=== PATIENT | female | born 1940 | race Caucasian/White ===

== ENCOUNTER 2020-09-02 22:18 | Emergency (ER) | payer MEDICARE, SELFPAY ==
[2020-09-02 22:34] VITALS: BP 145/67; PULSE 75; RESP 20; TEMP 36.6; O2SAT 100; BMI 16.3
--- NOTE | 2020-09-02 22:54 | ED_ITS ---
HPI - General Adult General Chief complaint: Nausea/Vomiting/Diarrhea Stated complaint: anxietty Time Seen by Provider: 09/02/20 22:50 History of Present Illness HPI narrative: This is a 80-year-old female who is well known to the emergency department and presents via EMS for complaints of a hiccuping like phenomenon that she states awoke her from sleep and is not associated with fever, chills, nausea, vomiting, diarrhea, urinary pain / burning / frequency. Patient states that she was able to tolerate her dinner and that her symptom onset was shortly after her [employer] left for the evening. Related Data Previous Rx's Medication Instructions Recorded alum-mag hydroxide-simeth [Mylanta 10 ml PO TID PRN #1 ea 09/03/20 Maximum Strength] alum-mag hydroxide-simeth [Mylanta 10 ml PO TID PRN #1 ea 09/03/20 Maximum Strength] Allergies Allergy/AdvReac Type Severity Reaction Status Date / Time azithromycin [From ZITHROMAX] Allergy Severe GENERIC Unverified 08/18/20 15:39 ONLY-SEVERE ABD PAIN, abdominal pain codeine [CODEINE] Allergy Intermediate NAUSEA & Unverified 08/18/20 15:39 VOMITING,FAINTED, nausea, vomiting, syncope erythromycin base Allergy Intermediate HIVES, ABD Unverified 08/18/20 15:39 [ERYTHROMYCIN BASE] PAIN promethazine [From PHENERGAN] Allergy Intermediate DIZZY / Unverified 08/18/20 15:39 NAUSEATED amoxicillin [Prevpac] Allergy Unknown Verified 06/21/20 00:00 clarithromycin [Prevpac] Allergy Unknown Verified 06/21/20 00:00 lansoprazole [Prevpac] Allergy Unknown Verified 06/21/20 00:00 Erythromycin Allergy Unknown hives, Uncoded 06/21/20 00:00 abdominal pain Review of Systems Review of Systems: Pertinent positives and negatives as stated in HPI and 10 point review of systems is otherwise negative. [facility] Past Medical History Medical History Anxiety GERD (gastroesophageal reflux disease) Social History Social History Advance Directives: No Advance Directives Information Provided: No Physical Exam Vital Signs and I&O and Narrative: Vital Signs and I&O: Vital Signs Temp 97.9 F 09/02/20 22:34 Pulse 75 09/02/20 22:34 Resp 20 09/02/20 22:34 BP 145/67 H 09/02/20 22:34 Pulse Ox 100 09/02/20 22:34 Intake & Output 09/02/20 09/02/20 09/03/20 06:59 18:59 06:59 Weight 43.2 kg Body Mass Index 16.3 VITAL SIGNS: Reviewed. GENERAL: Well developed, well nourished, in no acute distress, but appears to be having an affected hiccuping like motion. HEAD: Normocephalic/atraumatic, EYES: PERRLA, EOMI intact without pain, no nystagmus/pallor/icterus noted EARS: Ext canals without abnormality, TMs non-bulging and non-erythematous NOSE: Nares patent bilateral OROPHARYNX: no oral lesions noted, posterior pharynx clear and non-erythematous without noted tonsillar enlargement/erythema/exudates NECK: Supple, no adenopathy LUNGS: Normal breath sounds. No adventitious sounds or accessory muscle use. SpO2<> CARDIOVASCULAR: Regular rate and rhythm without noted murmurs, no JVD or lower extremity edema. ABDOMEN: Soft, non-tender, non-distended with bowel sounds. No rigidity. No guarding. No palpable masses or hernias noted MUSCULOSKELETAL: No tenderness, deformities, or effusions noted on gross inspection. EXTREMITIES: No cyanosis, clubbing or edema. SKIN: Inspection of the skin reveals no rashes, ulcerations, jaundice, pallor, or petechiae. NEUROLOGIC: Alert and oriented x 4. Strength and sensation to light touch were grossly intact Course Reevaluation(s) Reevaluation #1: On re-evaluation the patient has had resolution of her symptoms and she will be discharged to home with instructions to continue with Mylanta and follow up with her primary care provider for further evaluation. Medical Decision Making MDM Narrative Medical decision making narrative: This is a 80-year-old female with history and clinical presentation consistent with likely dyspepsia and will provide a trial of Mylanta and re-evaluate. There is no evidence for infectious etiologies. Discharge Plan Discharge Clinical Impression: Dyspepsia Patient Disposition: Home, Self-Care Instructions: Indigestion (ED) Additional Instructions: Resume all home medications. Prescriptions: New alum-mag hydroxide-simeth [Mylanta Maximum Strength] 400-400-40 mg/5 mL suspension 10 ml PO TID PRN (Reason: indigestion) Qty: 1 RF: 0 alum-mag hydroxide-simeth [Mylanta Maximum Strength] 400-400-40 mg/5 mL suspension 10 ml PO TID PRN (Reason: indigestion) Qty: 1 RF: 0 Referrals: Physician,None [Primary Care Provider] - 2 days (Follow up on dyspepsia) Interventions: ED Discharge Assessment Last Done: 09/03/20 00:33 Discharge Date/Time: 09/03/20 00:34 Print Language: Nicaraguan
[2020-09-02] MEDS: Magnesium Hydrox/Alum Hydrox 30 ML ORAL.SUSP PO (23:20)
== END 2020-09-03 00:34 | disposition home or self-care (01) ==
PROVIDERS: Emergency Provider Student in an Organized Health Care Education/Training Program
DX: R10.13 Epigastric pain (principal); K21.9 Gastro-esophageal reflux disease without esophagitis
CPT/HCPCS: 99283

== ENCOUNTER 2020-09-27 06:10 | Emergency (ER) | payer MEDICARE, SELFPAY ==
[2020-09-27 06:16] VITALS: PULSE 72; RESP 16; TEMP 36.9; O2SAT 97; BMI 25.8
--- NOTE | 2020-09-27 06:22 | PC.NURSE ---
PT TO ROOM VIA AMBULANCE AFTER WAKING UP WITH A HEADACHE THIS AM. PT DENIES ANY OTHER COMPLAINTS AT THIS TIME. PT DENIES ANY INJURY TO HEAD. EMS STATED PT AMBULATED DOWN 3 FLIGHTS OF STAIRS AND WAS WAITING AT DOOR FOR EMS. PT ARRIVES ALERT, RESPIRATIONS EASY, N/L. PT DENIES N/V. VS OBTAINED. CALL JUÁREZ W/I REACH, BED IN LOW LOCKED POSITION. PT AWAITING MD'S EVAL.
[2020-09-27 06:25] VITALS: BP 131/88; PULSE 79; RESP 16; O2SAT 99
--- NOTE | 2020-09-27 06:56 | ED.HA ---
HPI - Headache General Chief Complaint: Headache Stated Complaint: headache Time Seen by Provider: 09/27/20 06:17 Source: patient Mode of arrival: ambulatory Limitations: no limitations History of Present Illness HPI Narrative: patient comes to emergency room complaining of headache that started earlier this morning. Patient states she went to her medication container and notice she did not have any Tylenol therefore came to the hospital. Patient denies any visual changes, no fever no chills, no neck pain. MD elicited complaint: headache Related Data Previous Rx's Medication Instructions Recorded alum-mag hydroxide-simeth [Mylanta 10 ml PO TID PRN #1 ea 09/03/20 Maximum Strength] alum-mag hydroxide-simeth [Mylanta 10 ml PO TID PRN #1 ea 09/03/20 Maximum Strength] acetaminophen [Athenol] 650 mg PO Q6H PRN #30 tab 09/27/20 Allergies Allergy/AdvReac Type Severity Reaction Status Date / Time azithromycin [From ZITHROMAX] Allergy Severe GENERIC Unverified 08/18/20 15:39 ONLY-SEVERE ABD PAIN, abdominal pain codeine [CODEINE] Allergy Intermediate NAUSEA & Unverified 08/18/20 15:39 VOMITING,FAINTED, nausea, vomiting, syncope erythromycin base Allergy Intermediate HIVES, ABD Unverified 08/18/20 15:39 [ERYTHROMYCIN BASE] PAIN promethazine [From PHENERGAN] Allergy Intermediate DIZZY / Unverified 08/18/20 15:39 NAUSEATED amoxicillin [Prevpac] Allergy Unknown Verified 06/21/20 00:00 clarithromycin [Prevpac] Allergy Unknown Verified 06/21/20 00:00 lansoprazole [Prevpac] Allergy Unknown Verified 06/21/20 00:00 Erythromycin Allergy Unknown hives, Uncoded 06/21/20 00:00 abdominal pain Review of Systems Review of Systems: Constitutional : No Weight loss, No Fever, No Chills, No Night Sweats, No Fatigue, No Malaise ENT/Mouth : No Hearing loss, No Ear Pain, No Nasal Congestion, No Sinus Pain, No Hoarseness, No sore throat, No Rhinorrhea, No Swallowing Difficulty Eyes: No Eye Pain, No Swelling, No Redness, No Foreign Body, No Discharge, No Vision Changes Cardiovascular : No Chest Pain, No SOB, No Dyspnea on Exertion, No Orthopnea, No Edema, No Palpitations Respiratory : No Cough, No Sputum, No Wheezing, No Smoke Exposure, No Dyspnea Gastrointestinal : No Nausea, No Vomiting, No Diarrhea, No Constipation, No abdominal Pain, No Hematochezia, No Melena Genitourinary : no irregular bleeding, No Dysuria, No Urinary Frequency, No Hematuria, No Urinary Incontinence, No Urgency, No Flank Pain, No Urinary Flow Changes, No Hesitancy Musculoskeletal : No joint pain, No Myalgias, No Joint Swelling Skin : No Skin Lesions, No rash Neuro : No Weakness, No Numbness, No Paresthesias, No Loss of Consciousness, No Dizziness, [id number] Headache Psych : No Anxiety/Panic, No Depression, No SI/HI/AH/VH, No Social Issues, Heme/Lymph: No Bruising, No Bleeding,No Lymphadenopathy Endocrine : No Polyuria, No Polydipsia, No Temperature Intolerance Yes all other systems are reviewed and are negative [facility] Past Medical History Medical History Anxiety GERD (gastroesophageal reflux disease) Social History Social History Smoked in Last 30 Days: No Advance Directives: No Advance Directives Information Provided: No Physical Exam Vital Signs: Vital Signs: Vital Signs Temp Pulse Resp BP Pulse Ox 09/27/20 06:25 79 16 131/88 99 09/27/20 06:16 98.4 F 72 16 97 Body Mass Index 25.8 Appearance: Alert. Oriented X3. No acute distress. Eyes: Pupils equal, round and reactive to light. ENT: Pharynx normal. Neck: Normal inspection. Neck supple. No lymph nodes noted. No crepitus CVS: Normal heart rate and rhythm. Pulses normal. Normal S1 and S2 Respiratory: No respiratory distress. Breath sounds normal. No Wheezing. No rales Abdomen: Soft and nontender. No rigidity. No distention. good BS x4 Skin: Skin warm and dry. Normal skin color. Normal skin turgor. Extremities: No lower extremity edema. No lower extremity edema. No Lacerations. No Rash Neuro: Oriented X 3. No motor deficit. No sensory deficit. Moving all extermities. No slurred speech. Course Course Course Narrative: patient was given Tylenol and ibuprofen, patient's creatinine function within normal limits since 08/30/2020, prescription sent to the patient's pharmacy for Tylenol Discharge Plan Discharge Clinical Impression: Headache Patient Disposition: Home, Self-Care Instructions: Acute Headache (ED) Additional Instructions: Please follow-up with your primary care physician tomorrow. If you have any worsening or new symptoms, please return to the emergency room or call 911 Prescriptions: New acetaminophen [Athenol] 325 mg tablet 650 mg PO Q6H PRN (Reason: fever or pain) Qty: 30 RF: 0 No Action alum-mag hydroxide-simeth [Mylanta Maximum Strength] 400-400-40 mg/5 mL suspension 10 ml PO TID PRN (Reason: indigestion) Qty: 1 RF: 0 alum-mag hydroxide-simeth [Mylanta Maximum Strength] 400-400-40 mg/5 mL suspension 10 ml PO TID PRN (Reason: indigestion) Qty: 1 RF: 0
[2020-09-27] MEDS: Acetaminophen 325 MG TABLET 650 MG PO ×2 (07:11→07:12)
[2020-09-27] MEDS: Ibuprofen 200 MG TABLET PO (07:12)
[2020-09-27 07:15] VITALS: BP 129/66; PULSE 77; RESP 14; TEMP 36.6
--- NOTE | 2020-09-27 07:27 | PC.NURSE ---
DR CODY AT BEDSIDE AT 0645 TO EVALUATE THIS P T PT INFORMED OF THE TREATMNET PLAN AND IS AGREEABLE
--- NOTE | 2020-09-27 07:28 | PC.NURSE ---
MEDICATED WITH TYLENOL AND MOTRIN FOR H/A
== END 2020-09-27 07:45 | disposition home or self-care (01) ==
PROVIDERS: Emergency Provider Emergency Medicine
DX: R51.9 Headache, unspecified (principal); Z79.899 Other long term (current) drug therapy
CPT/HCPCS: 99283; 99284

== ENCOUNTER 2020-10-12 10:02 | Emergency (ER) | payer MEDICARE, SELFPAY ==
--- NOTE | 2020-10-12 10:20 | ED.GENADULT ---
HPI - General Adult General Chief complaint: Anxiety Stated complaint: HAND TREMORS,ANXIETY X'S 2 HOURS Time Seen by Provider: 10/12/20 10:19 Source: patient and EMS Mode of arrival: EMS Limitations: language barrier History of Present Illness HPI narrative: 80 y/o female with history of anxiety, COPD, gastric ulcer, gastritis, hx falls, constipation presenting with bilateral hand tremors and anxiety that started 2 hours prior to presentation. She states she called her [employer] this morning to come to the house but she was sleeping. This made her anxious and she called 911. She also states that for the past 3 days she has been having LE tremors and difficulty ambulating. She is afraid she is going to fall at home and does not feel safe. She denies numbness, tingling and admits to generalized weakness. No fever, chills, N/V. Chronic lower abdominal discomfort x1 year. Onset (ago): hour(s) (2) Location: left, right and upper extremity Radiation: non-radiation Severity: mild Related Data Previous Rx's Medication Instructions Recorded alum-mag hydroxide-simeth [Mylanta 10 ml PO TID PRN #1 ea 09/03/20 Maximum Strength] alum-mag hydroxide-simeth [Mylanta 10 ml PO TID PRN #1 ea 09/03/20 Maximum Strength] acetaminophen [Athenol] 650 mg PO Q6H PRN #30 tab 09/27/20 Allergies Allergy/AdvReac Type Severity Reaction Status Date / Time azithromycin [From ZITHROMAX] Allergy Severe GENERIC Unverified 08/18/20 15:39 ONLY-SEVERE ABD PAIN, abdominal pain codeine [CODEINE] Allergy Intermediate NAUSEA & Unverified 08/18/20 15:39 VOMITING,FAINTED, nausea, vomiting, syncope erythromycin base Allergy Intermediate HIVES, ABD Unverified 08/18/20 15:39 [ERYTHROMYCIN BASE] PAIN promethazine [From PHENERGAN] Allergy Intermediate DIZZY / Unverified 08/18/20 15:39 NAUSEATED amoxicillin [Prevpac] Allergy Unknown Verified 06/21/20 00:00 clarithromycin [Prevpac] Allergy Unknown Verified 06/21/20 00:00 lansoprazole [Prevpac] Allergy Unknown Verified 06/21/20 00:00 Erythromycin Allergy Unknown hives, Uncoded 06/21/20 00:00 abdominal pain Review of Systems Review of Systems: Constitutional: No Fever, No Chills ENT/Mouth: No sore throat, No Rhinorrhea, No Swallowing Difficulty Eyes: No Eye Pain, No Swelling, No Redness Cardiovascular: No Chest Pain, No SOB, No Orthopnea, No Edema Respiratory: No Cough, No Sputum, No Wheezing, No dyspnea Gastrointestinal: No Nausea, No Vomiting, No Diarrhea, + abdominal Pain Genitourinary: No Dysuria, No Urinary Frequency, No Hematuria Musculoskeletal: No joint pain, No Myalgias Skin: No Skin Lesions, No rash Neuro: + Weakness, No Numbness, No Dizziness, No Headache, + tremors Psych: + Anxiety/Panic, No Depression Heme/Lymph: No Bruising, No Lymphadenopathy Endocrine: No Polyuria, No Polydipsia PMFSH Past Medical History Medical History Anxiety GERD (gastroesophageal reflux disease) Social History Social History Alcohol intake: never Smoking Status: Never smoker Use of substances other than those prescribed or required for medical reasons: No Advance Directives: No Advance Directives Information Provided: Yes Physical Exam Vital Signs: Vital Signs: Last Vital Signs Temp 97.8 F 10/12/20 10:30 Pulse 85 10/12/20 10:30 Resp 18 10/12/20 10:30 BP 153/72 H 10/12/20 10:30 Pulse Ox 96 10/12/20 10:30 Body Mass Index 21.8 Appearance: Alert. Oriented X3. No acute distress. Eyes: Pupils equal, round and reactive to light. ENT: Pharynx normal. Neck: Normal inspection. Neck supple. CVS: Normal heart rate and rhythm. Pulses normal. Respiratory: No respiratory distress. Breath sounds normal. Abdomen: Soft and nontender. +BS x4 Skin: Skin warm and dry. Normal skin color. Normal skin turgor. No rashes. Extremities: No lower extremity edema. Neuro: Oriented X 3. mild bilateral LE weakness with unsteady gait. No sensory deficit. no UE tremor or asterixis. Course Course Course Narrative: 80 yo female presenting with anxiety, upper extremity shaking (now resolved), and difficulty ambulating at home with concern for falls. She is non-focal on exam. Gait is unsteady. Will do basic metabolic workup to assess for metabolic derangements and UTI. We discussed safety at home and possibility of PT evaluation and placement at acute rehab if deemed necessary. Patient is agreeable at this time. Reevaluation(s) Reevaluation #1: Patient's lab workup is unremarkable aside from mild hypophosphatemia which does not explain her tremors, weakness, or difficulty ambulating. Given oral phos x1. She is being evaluated by PT/OT. Possible placement to STR. D/w case management. Reevaluation #2: Patient evaluated by PT - did not require skilled PT at this time however her insurance qualified her for shelter stay. No beds available today. Patient would like to be discharged home at this time with home PT. Stable for discharge. Medical Decision Making Lab Data Result diagrams: 10/12/20 11:10 10/12/20 11:10 Labs: Lab Results 10/12/20 10/12/20 10/12/20 Range/Units 11:10 11:10 11:10 WBC 7.2 (4.8-10.8) X10*3/uL RBC 4.79 (4.20-5.50) X10*6/uL Hgb 13.1 (12.0-16.0) g/dl Hct 41.0 (37-47) % MCV 85.6 (80-98) fL MCH 27.3 (27.0-33.0) pg MCHC 32.0 (31.0-35.0) g/dl RDW 15.3 (11.0-16.0) % Plt Count 235 (160-400) X10*3/uL MPV 9.4 (9.4-12.3) fL Immature Gran % (Auto) 0.3 (0.0-0.4) % Neut % (Auto) 71.6 (45-73) % Lymph % (Auto) 19.6 L (20-40) % [place] % (Auto) 7.3 (2-11) % Eos % (Auto) 0.8 (0-4) % Baso % (Auto) 0.4 (0-2) % Lymph # (Auto) 1.4 (1.2-4.9) X10*3/uL [place] # (Auto) 0.5 (0.1-1.2) X10*3/uL Eos # (Auto) 0.1 (0.0-0.4) X10*3/uL Baso # (Auto) 0.0 (0.0-0.2) X10*3/uL Abs Immat Gran (auto) 0.02 (0.00-0.03) X10*3/uL Absolute Neuts (auto) 5.1 (2.0-8.3) X10*3/uL Absolute Nucleated RBC 0.000 (0.0-0.012) X10*3/uL Nucleated RBC % (auto) 0.0 (0.0-0.2) /100WBC Sodium 140 (135-145) mmol/L Potassium 3.6 (3.3-5.1) mmol/l Chloride 104 (96-108) mmol/L Carbon Dioxide 30 H (22-29) mmol/L Anion Gap 10 L (12-20) BUN 15 (9-16) mg/dL Creatinine 1.01 (0.5-1.4) mg/dL Estim Creat Clear Calc 40.6 Estimated GFR 53 Random Glucose 118 H (60-115) mg/dL Calcium 9.5 (8.4-10.2) mg/dL Phosphorus 2.5 L (2.7-4.5) mg/dL Magnesium 2.2 (1.6-2.6) mg/dL Urine Color YELLOW Urine Appearance HAZY Urine pH 6.0 (5.0-8.0) Ur Specific [place] 1.025 (1.005-1.025) Urine Protein NEG (NEG-TRACE) MG/DL Urine Glucose (UA) NEG (NEG) MG/DL Urine Ketones NEG (NEG) MG/DL Urine Blood 1+ H (NEG) Urine Nitrite NEG (NEG) Ur Leukocyte Esterase NEG (NEG) Urine RBC 1-4 (0) /HPF Urine WBC 0 (0-4) /HPF Ur Squamous Epith Cells 1+ /LPF Urine Bacteria NONE /LPF COVID-19 (LYUBOV) (Negative) COVID-19 Clin Com 10/12/20 Range/Units 12:05 WBC (4.8-10.8) X10*3/uL RBC (4.20-5.50) X10*6/uL Hgb (12.0-16.0) g/dl Hct (37-47) % MCV (80-98) fL MCH (27.0-33.0) pg MCHC (31.0-35.0) g/dl RDW (11.0-16.0) % Plt Count (160-400) X10*3/uL MPV (9.4-12.3) fL Immature Gran % (Auto) (0.0-0.4) % Neut % (Auto) (45-73) % Lymph % (Auto) (20-40) % [place] % (Auto) (2-11) % Eos % (Auto) (0-4) % Baso % (Auto) (0-2) % Lymph # (Auto) (1.2-4.9) X10*3/uL [place] # (Auto) (0.1-1.2) X10*3/uL Eos # (Auto) (0.0-0.4) X10*3/uL Baso # (Auto) (0.0-0.2) X10*3/uL Abs Immat Gran (auto) (0.00-0.03) X10*3/uL Absolute Neuts (auto) (2.0-8.3) X10*3/uL Absolute Nucleated RBC (0.0-0.012) X10*3/uL Nucleated RBC % (auto) (0.0-0.2) /100WBC Sodium (135-145) mmol/L Potassium (3.3-5.1) mmol/l Chloride (96-108) mmol/L Carbon Dioxide (22-29) mmol/L Anion Gap (12-20) BUN (9-16) mg/dL Creatinine (0.5-1.4) mg/dL Estim Creat Clear Calc Estimated GFR Random Glucose (60-115) mg/dL Calcium (8.4-10.2) mg/dL Phosphorus (2.7-4.5) mg/dL Magnesium (1.6-2.6) mg/dL Urine Color Urine Appearance Urine pH (5.0-8.0) Ur Specific [place] (1.005-1.025) Urine Protein (NEG-TRACE) MG/DL Urine Glucose (UA) (NEG) MG/DL Urine Ketones (NEG) MG/DL Urine Blood (NEG) Urine Nitrite (NEG) Ur Leukocyte Esterase (NEG) Urine RBC (0) /HPF Urine WBC (0-4) /HPF Ur Squamous Epith Cells /LPF Urine Bacteria /LPF COVID-19 (LYUBOV) Negative (Negative) COVID-19 Clin Com See Note Discharge Plan Discharge Clinical Impression: Acute anxiety, Tremor Patient Disposition: Home, Self-Care Instructions: Anxiety (ED), Weakness (ED), Fall Prevention (ED) Additional Instructions: Follow up with your doctor this week. If you have worsening weakness, difficulty walking, or falls at home come back to the ER for further evaluation. Prescriptions: No Action alum-mag hydroxide-simeth [Mylanta Maximum Strength] 400-400-40 mg/5 mL suspension 10 ml PO TID PRN (Reason: indigestion) Qty: 1 RF: 0 alum-mag hydroxide-simeth [Mylanta Maximum Strength] 400-400-40 mg/5 mL suspension 10 ml PO TID PRN (Reason: indigestion) Qty: 1 RF: 0 acetaminophen [Athenol] 325 mg tablet 650 mg PO Q6H PRN (Reason: fever or pain) Qty: 30 RF: 0 Print Language: Latvian
[2020-10-12 10:30] VITALS: BP 153/72; PULSE 85; RESP 18; TEMP 36.6; O2SAT 96; BMI 21.8
[2020-10-12 11:19] LABS: MANUAL DIFF FLAG NO
[2020-10-12 11:21] LABS: Glucose Urine UA NEG (NEG); Leukocyte Esterase Urine NEG (NEG); Nitrite Urine NEG (NEG); Specific Gravity - Urine 1.025 (1.005-1.025); Urine Blood 1+ (NEG); Urine Ketones NEG (NEG); Urine Protein NEG (NEG-TRACE)
[2020-10-12 11:30] LABS: Appearance Urine HAZY; Basophils Percent Auto 0.4 % (0-2); Color Urine YELLOW; Eosinophils Absolute Auto 0.1 X10*3/uL (0.0-0.4); Eosinophils Percent Auto 0.8 % (0-4); Hemoglobin 13.1 g/dl (12.0-16.0); Imm Gran Abs Auto 0.02 X10*3/uL (0.00-0.03); Imm Gran Pct Auto 0.3 % (0.0-0.4); Lymphocytes Absolute Auto 1.4 X10*3/uL (1.2-4.9); Lymphocytes Percent Auto 19.6 % (20-40); Mean Corpuscular Hemoglobin 27.3 pg (27.0-33.0); Mean Corpuscular Volume 85.6 fL (80-98); Mean Platelet Volume 9.4 fL (9.4-12.3); Monocytes Absolute Auto 0.5 X10*3/uL (0.1-1.2); Monocytes Percent Auto 7.3 % (2-11); Neutrophils Absolute Auto 5.1 X10*3/uL (2.0-8.3); Neutrophils Percent Auto 71.6 % (45-73); Platelet Count 235 X10*3/uL (160-400); Red Blood Count 4.79 X10*6/uL (4.20-5.50); Red Cell Distribution Width 15.3 % (11.0-16.0); White Blood Count 7.2 X10*3/uL (4.8-10.8)
[2020-10-12 11:34] LABS: Squamous Epithelial Cell Urine 1+ /LPF; WBC Urine 0 /HPF (0-4)
[2020-10-12 11:40] LABS: Anion Gap 10 (12-20); Blood Urea Nitrogen 15 mg/dL (9-16); Calcium 9.5 mg/dL (8.4-10.2); Carbon Dioxide 30 mmol/L (22-29); Chloride 104 mmol/L (96-108); Creatinine Clr Calc Pharmacy 40.6; Estimated Glomerular Filt Rate 53; Glucose Random 118 mg/dL (60-115); Magnesium 2.2 mg/dL (1.6-2.6); Potassium 3.6 mmol/l (3.3-5.1); Sodium 140 mmol/L (135-145)
--- NOTE | 2020-10-12 11:48 | PC.NURSE ---
RECVD REPORT FROM SUNITHA VAZ. PT UPRIGHT IN BED, RR EVEN UNLABORED, SKIN WPD, AOX3. PT OFFERS NO ACUTE COMPLAINTS ATT. PROVIDER AT BEDSIDE DISUCISSING LAB RESULTS, PT REPORTS UNDERSTANDING OF PLAN FOR PT EVAL AND CASE MGMT. PT REQUESTING LUNCH, PROVIDER STATED WOULD ORDER LUNCH TRAY. SUZI, SHRAVAN.
[2020-10-12 11:51] LABS: Phosphorus 2.5 mg/dL (2.7-4.5)
[2020-10-12 12:42] LABS: COVID-19 Test Negative (Negative)
[2020-10-12] MEDS: Sodium,Potassium Phosphates POWD.PACK 1 PACKET PO (13:02)
[2020-10-12 14:00] VITALS: BP 141/71; PULSE 74; RESP 16; TEMP 36.6; O2SAT 96
--- NOTE | 2020-10-12 14:04 | MHC.CM.ED ---
Received case management consult from Shannan FORDE. Patient came to ER due to anxiety and tremors. Doesn't feel she can safely return home. Physical therapy eval completed. They're recommending no services. Patient is active with [facility]. They allow senior care stays. Patient has been to [facility] in the past and is requesting referral there. Referral made via allscripts. They do not have a bed to offer today. Patient aware and is requesting to home. Wheelchair van booked. [facility] with [facility]. Patient, Shannan FORDE and Giacomo VAZ aware. Continue to monitor for d/c needs.
== END 2020-10-12 14:32 | disposition home or self-care (01) ==
PROVIDERS: Physician Assistant; Emergency Provider Emergency Medicine
DX: R25.1 Tremor, unspecified (principal); F41.1 Generalized anxiety disorder; F43.0 Acute stress reaction; Z79.899 Other long term (current) drug therapy
CPT/HCPCS: 36415; 80048; 81001; 83735; 84100; 85025; 87635; 97161; 99284; 99285

== ENCOUNTER 2020-10-16 05:45 | Emergency (ER) | payer MEDICARE, SELFPAY ==
[2020-10-16 05:52] VITALS: BP 130/80; BP 175/76; PULSE 69; PULSE 79; RESP 16; TEMP 36.5; O2SAT 100; O2SAT 98; BMI 21.4
--- NOTE | 2020-10-16 06:33 | ED.NAVMDI ---
HPI - Nausea/Vomiting/Diarrhea General Chief complaint: Nausea/Vomiting/Diarrhea Stated complaint: abd /nausea Time Seen by Provider: 10/16/20 06:32 Source: patient Mode of arrival: EMS Limitations: no limitations History of Present Illness HPI Narrative: this is a 80-year-old female with complaints of nausea and nonbloody / nonbilious vomiting that she has been struggling with for 4 months without associated fevers, chills, abdominal pain, diarrhea, shortness of breath, chest pain / palpitations, urinary pain/ burning/ frequency. Patient states she has been able to have a bowel movement and passed gas without difficulty. Related Data Previous Rx's Medication Instructions Recorded alum-mag hydroxide-simeth [Mylanta 10 ml PO TID PRN #1 ea 09/03/20 Maximum Strength] alum-mag hydroxide-simeth [Mylanta 10 ml PO TID PRN #1 ea 09/03/20 Maximum Strength] acetaminophen [Athenol] 650 mg PO Q6H PRN #30 tab 09/27/20 sucralfate [Carafate] 10 ml PO BID 14 Days #280 ml 10/16/20 Allergies Allergy/AdvReac Type Severity Reaction Status Date / Time azithromycin [From ZITHROMAX] Allergy Severe GENERIC Unverified 08/18/20 15:39 ONLY-SEVERE ABD PAIN, abdominal pain codeine [CODEINE] Allergy Intermediate NAUSEA & Unverified 08/18/20 15:39 VOMITING,FAINTED, nausea, vomiting, syncope erythromycin base Allergy Intermediate HIVES, ABD Unverified 08/18/20 15:39 [ERYTHROMYCIN BASE] PAIN promethazine [From PHENERGAN] Allergy Intermediate DIZZY / Unverified 08/18/20 15:39 NAUSEATED amoxicillin [Prevpac] Allergy Unknown Verified 06/21/20 00:00 clarithromycin [Prevpac] Allergy Unknown Verified 06/21/20 00:00 lansoprazole [Prevpac] Allergy Unknown Verified 06/21/20 00:00 Erythromycin Allergy Unknown hives, Uncoded 06/21/20 00:00 abdominal pain Review of Systems Review of Systems: Pertinent positives and negatives as stated in HPI and 10 point review of systems is otherwise negative. PMFSH Past Medical History Source: nursing notes reviewed Medical History Anxiety GERD (gastroesophageal reflux disease) Social History Social History Alcohol intake: never Smoking Status: Never smoker Use of substances other than those prescribed or required for medical reasons: No Advance Directives: No Physical Exam Vital Signs: Vital Signs: Last Vital Signs Temp 97.7 F 10/16/20 05:52 Pulse 69 10/16/20 05:52 Resp 16 10/16/20 05:52 BP 175/76 H 10/16/20 05:52 Pulse Ox 98 10/16/20 05:52 Body Mass Index 21.4 VITAL SIGNS: Reviewed. GENERAL: Well developed, well nourished, in no acute distress. HEAD: Normocephalic/atraumatic, EYES: PERRLA, EOMI intact without pain, no nystagmus/pallor/icterus noted EARS: Ext canals without abnormality, TMs non-bulging and non-erythematous NOSE: Nares patent bilateral OROPHARYNX: no oral lesions noted, posterior pharynx clear and non-erythematous without noted tonsillar enlargement/erythema/exudates NECK: Supple, no adenopathy LUNGS: Normal breath sounds. No adventitious sounds or accessory muscle use. SpO2<98> CARDIOVASCULAR: Regular rate and rhythm without noted murmurs, no JVD or lower extremity edema. ABDOMEN: Soft, non-tender, non-distended with bowel sounds. No rigidity. No guarding. No palpable masses or hernias noted MUSCULOSKELETAL: No tenderness, deformities, or effusions noted on gross inspection. EXTREMITIES: No cyanosis, clubbing or edema. SKIN: Inspection of the skin reveals no rashes, ulcerations, jaundice, pallor, or petechiae. NEUROLOGIC: Alert and oriented x 4. Strength and sensation to light touch were grossly intact x 4. Course Course Course Narrative: This is a 80-year-old female with history and clinical presentation suggestive of possible gastritis, GERD, dyspepsia but doubt obstruction /pulmonary or cardiac etiologies. On review of KUB there are no acute signs of obstruction and patient had complete resolution of her discomfort and symptoms with the GI cocktail. Patient now expresses comfort with being discharged to home and she will be provided with a prescription for Carafate and strict instructions to increase her fluid intake to avoid constipation. In addition, she was instructed to follow-up with her primary care provider. Discharge Plan Discharge Clinical Impression: Gastritis Qualifiers: Gastritis type: unspecified gastritis Chronicity: chronic Gastritis bleeding: without bleeding Qualified Code(s): K29.50 - Unspecified chronic gastritis without bleeding Patient Disposition: Home, Self-Care Instructions: Gastritis (ED), Diet for Stomach Ulcers and Gastritis (ED) Additional Instructions: 1. Reanude todos los medicamentos recetados en casa. 2. Siga jluis dieta blanda (evite las grasas, las picantes, los c?tricos, la cafe?na o la carbonataci?n) en dinh momento. 3. Mariam un seguimiento con isaac proveedor de atenci?n primaria llamando al consultorio el lunes por la ma?malka y haciendo jluis senia. 4. Aumente la hidrataci?n de los l?quidos espec?ficamente con agua. El paciente y / o la dany reconocen que comprenden los resultados (seg?n corresponda), el diagn?stico, el plan de tratamiento, la necesidad de seguimiento y los s?ntomas que deber?an impulsar el regreso a la waldemar de emergencias. Prescriptions: New sucralfate [Carafate] 100 mg/mL suspension 10 ml PO BID 14 Days Qty: 280 RF: 0 No Action alum-mag hydroxide-simeth [Mylanta Maximum Strength] 400-400-40 mg/5 mL suspension 10 ml PO TID PRN (Reason: indigestion) Qty: 1 RF: 0 alum-mag hydroxide-simeth [Mylanta Maximum Strength] 400-400-40 mg/5 mL suspension 10 ml PO TID PRN (Reason: indigestion) Qty: 1 RF: 0 acetaminophen [Athenol] 325 mg tablet 650 mg PO Q6H PRN (Reason: fever or pain) Qty: 30 RF: 0 Referrals: Physician,Unknown [Primary Care Provider] - 2 days
--- NOTE | 2020-10-16 06:38 | XR_ITS ---
EXAMINATION: ABDOMEN 1 VIEW CLINICAL INFORMATION: Nausea, vomiting. COMPARISON: 08/23/2020. TECHNIQUE: A supine view of the abdomen is provided. FINDINGS: There are no dilated loops of small bowel. There are no air-fluid levels. There is no appendicolith. The visualized lung bases are clear. The osseous structures are stable. Surgical clips are identified within the right upper quadrant. XR/XR KUB IMPRESSION: Unremarkable bowel gas pattern.
[2020-10-16] MEDS: Magnesium Hydrox/Alum Hydrox 30 ML ORAL.SUSP PO (06:41)
[2020-10-16] MEDS: Lidocaine HCl Viscous 2 % 15 ML SOLUTION 10 ML MUCOUS MEM (06:41)
[2020-10-16 07:46] VITALS: BP 145/71; PULSE 63; RESP 14; O2SAT 96
--- NOTE | 2020-10-16 08:27 | PC.NURSE ---
JUICE AND TOAST GIVEN WAITING FOR TRANSPORTATION HOME
--- NOTE | 2020-10-16 08:31 | PC.NURSE ---
pt states she has no transport home pt offered toast and drink offers no pain complaints resting in naps
== END 2020-10-16 09:47 | disposition home or self-care (01) ==
PROVIDERS: Emergency Provider Student in an Organized Health Care Education/Training Program
DX: K29.50 Unspecified chronic gastritis without bleeding (principal); R11.2 Nausea with vomiting, unspecified; Z79.899 Other long term (current) drug therapy
CPT/HCPCS: 74018; 99284

== ENCOUNTER 2020-10-20 09:15 | Emergency (ER) | payer MEDICARE, SELFPAY ==
--- NOTE | 2020-10-20 | CT_ITS ---
EXAMINATION: NONCONTRAST HEAD CT NONCONTRAST CERVICAL SPINE CT INDICATION INFORMATION: Altered mental status. Fall. COMPARISON: 05/31/2020 TECHNIQUE: Separate noncontrast CT examinations of the head and cervical spine were performed. Coronal and sagittal images were created for each examination at the technologist workstation. This CT examination was performed using dose optimization techniques as appropriate, variously including the following: *Automated exposure control *Adjustment of mA and/or kV according to patient size (this includes techniques or standardized protocols for targeted exams where dose is matched to indication/reason for exam; i.e. extremities or head) *Use of iterative reconstruction technique DLP: 1049 mGy-cm FINDINGS: Head: There is no evidence of acute intracranial hemorrhage or territorial infarction. No abnormal mass effect or midline shift is seen. French to white matter differentiation is well preserved. No extra-axial fluid collections are identified. No hydrocephalus. Proportional prominence of the ventricles and sulcal spaces is consistent with mild volume loss. Patchy periventricular and deep white matter hypoattenuation is consistent with mild small vessel ischemic changes. Chronic left temporal lobe gliosis. No acute osseous or soft tissue abnormality. The mastoid air cells and visualized portions of the paranasal sinuses are well aerated. Cervical spine: There is anatomic alignment of the vertebral bodies and posterior elements. The atlantoaxial and atlantooccipital articulations are intact. Vertebral body heights and intervertebral disc spaces are maintained. Mild multilevel facet arthropathy. No evidence of acute fracture. No prevertebral soft tissue swelling. Chronic pleural thickening at the lung apices.. The thyroid gland is unremarkable. CT/CT cervical spine wo con IMPRESSION: 1. No acute intracranial findings. Chronic changes. 2. No acute fracture or malalignment of the cervical spine. Mild degenerative changes.
--- NOTE | 2020-10-20 | XR_ITS ---
EXAMINATION: XR CHEST CLINICAL INFORMATION: Weakness. COMPARISON: Chest radiographs from 03/31/2020 through 08/30/2020 TECHNIQUE: Frontal view of the chest was obtained. FINDINGS: The cardiomediastinal and hilar contours are within normal limits. No lobar consolidations are identified. Chronic, reticulonodular opacities throughout both lungs are overall stable in extent when compared to the 08/30/2020 comparison. A subtle left, lateral midlung opacity seen on the prior examination is less apparent on the current study. Biapical scarring, left greater than right, is stable. No pleural effusion or pneumothorax. XR/XR chest 1V IMPRESSION: No acute process identified. A left lateral midlung opacity seen on the prior examination is less apparent on the current study.
--- NOTE | 2020-10-20 | ECG_ITS ---
Test Reason : FALL Blood Pressure : / mmHG Vent. Rate : 074 BPM Atrial Rate : 074 BPM P-R Int : 176 ms QRS Dur : 074 ms QT Int : 406 ms P-R-T Axes : 075 019 049 degrees QTc Int : 450 ms Sinus rhythm with marked sinus arrhythmia Moderate voltage criteria for LVH, may be normal variant Cannot rule out Septal infarct (cited on or before 20-AUG-2020) Abnormal ECG When compared with ECG of 30-AUG-2020 23:46, Heart rate has increased Referred By: Velma Love Electronically Signed By:MARIANA COLLADO MD
[2020-10-20 09:38] VITALS: BP 133/60; BP 82/56; PULSE 74; RESP 14; TEMP 36.5; O2SAT 98; BMI 25.5
--- NOTE | 2020-10-20 09:48 | ED.AMS ---
HPI - Altered Mental Status General Chief Complaint: Fall Stated Complaint: fall/hypotension Time Seen by Provider: 10/20/20 09:48 Source: EMS and old records reviewed Mode of arrival: EMS Limitations: altered mental status History of Present Illness HPI narrative: found wandering outside MD complaint: confusion and decreased responsiveness Onset (ago): unknown Severity: moderate Consistency of symptoms: waxing and waning Context: history of similar presentation Associated symptoms: denies other symptoms Treatments prior to arrival: spinal immobilization Related Data Previous Rx's Medication Instructions Recorded alum-mag hydroxide-simeth [Mylanta 10 ml PO TID PRN #1 ea 09/03/20 Maximum Strength] alum-mag hydroxide-simeth [Mylanta 10 ml PO TID PRN #1 ea 09/03/20 Maximum Strength] acetaminophen [Athenol] 650 mg PO Q6H PRN #30 tab 09/27/20 sucralfate [Carafate] 10 ml PO BID 14 Days #280 ml 10/16/20 Allergies Allergy/AdvReac Type Severity Reaction Status Date / Time azithromycin [From ZITHROMAX] Allergy Severe GENERIC Unverified 08/18/20 15:39 ONLY-SEVERE ABD PAIN, abdominal pain codeine [CODEINE] Allergy Intermediate NAUSEA & Unverified 08/18/20 15:39 VOMITING,FAINTED, nausea, vomiting, syncope erythromycin base Allergy Intermediate HIVES, ABD Unverified 08/18/20 15:39 [ERYTHROMYCIN BASE] PAIN promethazine [From PHENERGAN] Allergy Intermediate DIZZY / Unverified 08/18/20 15:39 NAUSEATED amoxicillin [Prevpac] Allergy Unknown Verified 06/21/20 00:00 clarithromycin [Prevpac] Allergy Unknown Verified 06/21/20 00:00 lansoprazole [Prevpac] Allergy Unknown Verified 06/21/20 00:00 Erythromycin Allergy Unknown hives, Uncoded 06/21/20 00:00 abdominal pain Review of Systems Review of Systems: ROS unable to be obtained due to altered mental status PMFSH Past Medical History Attestation statement: The following information was validated with the patient. Source: old records reviewed Medical History Anxiety GERD (gastroesophageal reflux disease) Social History Social History Alcohol intake: never Smoking Status: Never smoker Advance Directives: No Advance Directives Information Provided: Yes Physical Exam Vital Signs: Vital Signs: Last Vital Signs Temp 97.6 F 10/20/20 12:00 Pulse 62 10/20/20 12:45 Resp 13 10/20/20 12:00 BP 141/67 H 10/20/20 12:45 Pulse Ox 98 10/20/20 12:45 Body Mass Index 25.5 Appearance: Alert. Oriented X2. Flat affect, mild acute distress. Eyes: Pupils equal, round and reactive to light. ENT: Pharynx normal. Contusion to R forehead Neck: Normal inspection. Neck supple. CVS: Normal heart rate and rhythm. Pulses normal. Respiratory: No respiratory distress. Breath sounds normal. Abdomen: Soft and nontender. Skin: Skin warm and dry. Normal skin color. Normal skin turgor. Extremities: No lower extremity edema. No calf ttp Neuro: Oriented X 2. No motor deficit. No sensory deficit. Course Course Course Narrative: patient is coming around BP improved pending UA, likely STR at the patient's request GCS 15, eating feels much better to go to [facility] at 4pm MDM - Altered Mental Status MDM Narrative Medical decision making narrative: 80 yo female with multiple medical problems found wandering and hypotensive c/o fall - stat head CT,cspine, glucose and labs ordered, patient seems to be coming around while in ED - cannot provide further history Lab Data Result diagrams: 10/20/20 09:56 10/20/20 09:56 Labs: Lab Results 10/20/20 10/20/20 10/20/20 Range/Units 09:20 09:23 09:56 WBC 7.2 (4.8-10.8) X10*3/uL RBC 4.39 (4.20-5.50) X10*6/uL Hgb 12.1 (12.0-16.0) g/dl Hct 37.9 (37-47) % MCV 86.3 (80-98) fL MCH 27.6 (27.0-33.0) pg MCHC 31.9 (31.0-35.0) g/dl RDW 15.0 (11.0-16.0) % Plt Count 231 (160-400) X10*3/uL MPV 9.9 (9.4-12.3) fL Immature Gran % (Auto) 0.1 (0.0-0.4) % Neut % (Auto) 69.7 (45-73) % Lymph % (Auto) 22.3 (20-40) % [place] % (Auto) 6.7 (2-11) % Eos % (Auto) 0.8 (0-4) % Baso % (Auto) 0.4 (0-2) % Lymph # (Auto) 1.6 (1.2-4.9) X10*3/uL [place] # (Auto) 0.5 (0.1-1.2) X10*3/uL Eos # (Auto) 0.1 (0.0-0.4) X10*3/uL Baso # (Auto) 0.0 (0.0-0.2) X10*3/uL Abs Immat Gran (auto) 0.01 (0.00-0.03) X10*3/uL Absolute Neuts (auto) 5.0 (2.0-8.3) X10*3/uL Absolute Nucleated RBC 0.000 (0.0-0.012) X10*3/uL Nucleated RBC % (auto) 0.0 (0.0-0.2) /100WBC Whole Blood PT 12.8 (11.1-13.5) sec Whole Blood INR 1.1 (0.9-1.1) Sodium (135-145) mmol/L Potassium (3.3-5.1) mmol/l Chloride (96-108) mmol/L Carbon Dioxide (22-29) mmol/L Anion Gap (12-20) BUN (9-16) mg/dL Creatinine (0.5-1.4) mg/dL Estim Creat Clear Calc Estimated GFR POC Glucose 118 H (60-115) mg/dL Random Glucose (60-115) mg/dL Calcium (8.4-10.2) mg/dL Magnesium (1.6-2.6) mg/dL Total Bilirubin (0.0-1.0) mg/dL Direct Bilirubin (0.0-0.5) mg/dL AST (5-31) U/L ALT (0-31) U/L Alkaline Phosphatase (39-117) U/L Total Creatine Kinase (26-140) U/L Troponin I High Sens (<3.5-17.0) ng/L Total Protein (6.5-8.0) g/dL Albumin (3.5-5.0) g/dL COVID-19 (LYUBOV) (Negative) COVID-19 Clin Com 10/20/20 10/20/20 10/20/20 Range/Units 09:56 09:56 09:56 WBC (4.8-10.8) X10*3/uL RBC (4.20-5.50) X10*6/uL Hgb (12.0-16.0) g/dl Hct (37-47) % MCV (80-98) fL MCH (27.0-33.0) pg MCHC (31.0-35.0) g/dl RDW (11.0-16.0) % Plt Count (160-400) X10*3/uL MPV (9.4-12.3) fL Immature Gran % (Auto) (0.0-0.4) % Neut % (Auto) (45-73) % Lymph % (Auto) (20-40) % [place] % (Auto) (2-11) % Eos % (Auto) (0-4) % Baso % (Auto) (0-2) % Lymph # (Auto) (1.2-4.9) X10*3/uL [place] # (Auto) (0.1-1.2) X10*3/uL Eos # (Auto) (0.0-0.4) X10*3/uL Baso # (Auto) (0.0-0.2) X10*3/uL Abs Immat Gran (auto) (0.00-0.03) X10*3/uL Absolute Neuts (auto) (2.0-8.3) X10*3/uL Absolute Nucleated RBC (0.0-0.012) X10*3/uL Nucleated RBC % (auto) (0.0-0.2) /100WBC Whole Blood PT (11.1-13.5) sec Whole Blood INR (0.9-1.1) Sodium 140 (135-145) mmol/L Potassium 4.0 (3.3-5.1) mmol/l Chloride 104 (96-108) mmol/L Carbon Dioxide 26 (22-29) mmol/L Anion Gap 14 (12-20) BUN 19 H (9-16) mg/dL Creatinine 1.14 (0.5-1.4) mg/dL Estim Creat Clear Calc 32.2 Estimated GFR 46 POC Glucose (60-115) mg/dL Random Glucose 157 H (60-115) mg/dL Calcium 9.2 (8.4-10.2) mg/dL Magnesium 2.2 (1.6-2.6) mg/dL Total Bilirubin 0.3 (0.0-1.0) mg/dL Direct Bilirubin 0.2 (0.0-0.5) mg/dL AST 17 (5-31) U/L ALT 11 (0-31) U/L Alkaline Phosphatase 90 (39-117) U/L Total Creatine Kinase 89 (26-140) U/L Troponin I High Sens < 3.5 (<3.5-17.0) ng/L Total Protein 7.6 (6.5-8.0) g/dL Albumin 4.0 (3.5-5.0) g/dL COVID-19 (LYUBOV) (Negative) COVID-19 Clin Com 10/20/20 Range/Units 12:54 WBC (4.8-10.8) X10*3/uL RBC (4.20-5.50) X10*6/uL Hgb (12.0-16.0) g/dl Hct (37-47) % MCV (80-98) fL MCH (27.0-33.0) pg MCHC (31.0-35.0) g/dl RDW (11.0-16.0) % Plt Count (160-400) X10*3/uL MPV (9.4-12.3) fL Immature Gran % (Auto) (0.0-0.4) % Neut % (Auto) (45-73) % Lymph % (Auto) (20-40) % [place] % (Auto) (2-11) % Eos % (Auto) (0-4) % Baso % (Auto) (0-2) % Lymph # (Auto) (1.2-4.9) X10*3/uL [place] # (Auto) (0.1-1.2) X10*3/uL Eos # (Auto) (0.0-0.4) X10*3/uL Baso # (Auto) (0.0-0.2) X10*3/uL Abs Immat Gran (auto) (0.00-0.03) X10*3/uL Absolute Neuts (auto) (2.0-8.3) X10*3/uL Absolute Nucleated RBC (0.0-0.012) X10*3/uL Nucleated RBC % (auto) (0.0-0.2) /100WBC Whole Blood PT (11.1-13.5) sec Whole Blood INR (0.9-1.1) Sodium (135-145) mmol/L Potassium (3.3-5.1) mmol/l Chloride (96-108) mmol/L Carbon Dioxide (22-29) mmol/L Anion Gap (12-20) BUN (9-16) mg/dL Creatinine (0.5-1.4) mg/dL Estim Creat Clear Calc Estimated GFR POC Glucose (60-115) mg/dL Random Glucose (60-115) mg/dL Calcium (8.4-10.2) mg/dL Magnesium (1.6-2.6) mg/dL Total Bilirubin (0.0-1.0) mg/dL Direct Bilirubin (0.0-0.5) mg/dL AST (5-31) U/L ALT (0-31) U/L Alkaline Phosphatase (39-117) U/L Total Creatine Kinase (26-140) U/L Troponin I High Sens (<3.5-17.0) ng/L Total Protein (6.5-8.0) g/dL Albumin (3.5-5.0) g/dL COVID-19 (LYUOBV) Negative (Negative) COVID-19 Clin Com See Note ECG Data ECG #1: Attestation: I personally reviewed and interpreted this ECG as follows: ECG interpretation date: 10/20/20 ECG interpretation time: 10:28 Interpretation: Rate: 74 Rhythm: NSR [place]: normal LVH Normal P waves. Normal KYLER. Normal QRS complex. ST T wave : nonspecific qTC: normal prior studies: no acute ischemia The study has been interpreted contemporaneously by me. . Discharge Plan Discharge Clinical Impression: Falls frequently Head injury Qualifiers: Encounter type: initial encounter Qualified Code(s): S09.90XA - Unspecified injury of head, initial encounter Prescriptions: No Action alum-mag hydroxide-simeth [Mylanta Maximum Strength] 400-400-40 mg/5 mL suspension 10 ml PO TID PRN (Reason: indigestion) Qty: 1 RF: 0 alum-mag hydroxide-simeth [Mylanta Maximum Strength] 400-400-40 mg/5 mL suspension 10 ml PO TID PRN (Reason: indigestion) Qty: 1 RF: 0 acetaminophen [Athenol] 325 mg tablet 650 mg PO Q6H PRN (Reason: fever or pain) Qty: 30 RF: 0 sucralfate [Carafate] 100 mg/mL suspension 10 ml PO BID 14 Days Qty: 280 RF: 0
[2020-10-20 10:38] LABS: MANUAL DIFF FLAG NO
[2020-10-20 10:39] LABS: Basophils Percent Auto 0.4 % (0-2); Eosinophils Absolute Auto 0.1 X10*3/uL (0.0-0.4); Eosinophils Percent Auto 0.8 % (0-4); Hematocrit 37.9 % (37-47); Hemoglobin 12.1 g/dl (12.0-16.0); Imm Gran Abs Auto 0.01 X10*3/uL (0.00-0.03); Imm Gran Pct Auto 0.1 % (0.0-0.4); Lymphocytes Absolute Auto 1.6 X10*3/uL (1.2-4.9); Lymphocytes Percent Auto 22.3 % (20-40); Mean Corpuscular HGB Conc 31.9 g/dl (31.0-35.0); Mean Corpuscular Hemoglobin 27.6 pg (27.0-33.0); Mean Corpuscular Volume 86.3 fL (80-98); Mean Platelet Volume 9.9 fL (9.4-12.3); Monocytes Absolute Auto 0.5 X10*3/uL (0.1-1.2); Monocytes Percent Auto 6.7 % (2-11); Neutrophils Percent Auto 69.7 % (45-73); Platelet Count 231 X10*3/uL (160-400); Red Blood Count 4.39 X10*6/uL (4.20-5.50); White Blood Count 7.2 X10*3/uL (4.8-10.8)
[2020-10-20 11:03] LABS: Alanine Aminotransferase 11 U/L (0-31); Alkaline Phosphatase 90 U/L (39-117); Anion Gap 14 (12-20); Aspartate Amino Transferase 17 U/L (5-31); Bilirubin Direct 0.2 mg/dL (0.0-0.5); Bilirubin Total 0.3 mg/dL (0.0-1.0); Blood Urea Nitrogen 19 mg/dL (9-16); Calcium 9.2 mg/dL (8.4-10.2); Carbon Dioxide 26 mmol/L (22-29); Chloride 104 mmol/L (96-108); Creatinine Clr Calc Pharmacy 32.2; Estimated Glomerular Filt Rate 46; Glucose Random 157 mg/dL (60-115); Sodium 140 mmol/L (135-145); Total Protein 7.6 g/dL (6.5-8.0)
[2020-10-20 11:05] LABS: Magnesium 2.2 mg/dL (1.6-2.6)
[2020-10-20 11:08] LABS: Troponin-I High Sensitivity < 3.5 ng/L (<3.5-17.0)
[2020-10-20 12:00] VITALS: BP 141/67; PULSE 62; RESP 13; TEMP 36.4; O2SAT 98
[2020-10-20 12:17] LABS: Prothrombin Time Whole Bld POC 12.8 sec (11.1-13.5); ~PT, ~INR - Anti Coag Clinic 1.1 (0.9-1.1)
[2020-10-20 12:18] LABS: Glucose, Whole Blood 118 mg/dL (60-115)
[2020-10-20] MEDS: ondansetron HCL 4 MG/2 ML VIAL IVPUSH (12:42)
[2020-10-20] MEDS: 0.9 % Sodium Chloride 1,000 ML 999 ML IVCONT (12:42)
[2020-10-20 12:45] VITALS: BP 141/67; PULSE 62; O2SAT 98
[2020-10-20 13:26] LABS: COVID-19 Test Negative (Negative); IDNOW Serial# 9DD0AD1C
[2020-10-20 14:00] VITALS: BP 141/67; PULSE 75; TEMP 36.6; O2SAT 98
--- NOTE | 2020-10-20 14:34 | MHC.CM.ED ---
Received case management consult from Dr Love. Patient came to ER after a fall. Work up essentially negative. Physical therapy eval completed. Short term rehab is recommended. Met with patient in regards to d/c planning. Patient has been to [facility] in the past. Patient is requesting referral be made there. Referral made via allscripts. [facility] is able to offer a bed and has obtained insurance auth. Patient can leave at 4pm. [facility] booked. Med [facility] with chart. Patient and Dr Love aware. Continue to monitor for d/c needs.
[2020-10-20 14:52] LABS: Glucose Urine UA NEG (NEG); Leukocyte Esterase Urine NEG (NEG); Nitrite Urine NEG (NEG); Specific Gravity - Urine 1.015 (1.005-1.025); Urine Blood TRACE (NEG); Urine Ketones NEG (NEG); Urine Protein NEG (NEG-TRACE)
[2020-10-20 14:54] LABS: Appearance Urine CLEAR; Color Urine YELLOW
[2020-10-20 15:00] LABS: Mucus Urine TRACE /LPF; Squamous Epithelial Cell Urine TRACE /LPF; WBC Urine 0 /HPF (0-4)
[2020-10-20 15:55] VITALS: BP 140/76; PULSE 80; TEMP 36.6; O2SAT 98
[2020-10-20 16:00] VITALS: BP 140/76; PULSE 80; TEMP 36.6; O2SAT 98
== END 2020-10-20 16:30 | disposition skilled nursing facility (03) ==
PROVIDERS: Emergency Provider Emergency Medicine
DX: S09.90XA Unspecified injury of head, initial encounter (principal); I95.9 Hypotension, unspecified; W18.30XA Fall on same level, unspecified, initial encounter; G44.309 Post-traumatic headache, unspecified, not intractable; M54.2 Cervicalgia; R07.89 Other chest pain; Y93.01 Activity, walking, marching and hiking; Y92.9 Unspecified place or not applicable; Y99.9 Unspecified external cause status; Z79.899 Other long term (current) drug therapy; Z91.81 History of falling
CPT/HCPCS: 36415; 70450; 71045; 72125; 80048; 80076; 81001; 82550; 82947; 83735; 84484; 85025; 85610; 87635; 93005; 96361; 96374; 97161; 99283; 99285; J2405

== ENCOUNTER 2020-11-05 11:20 | Inpatient (IN) | payer MEDICARE, SELFPAY ==
[2020-11-05 11:36] VITALS: BP 180/81; BP 192/62; PULSE 80; PULSE 84; RESP 20; TEMP 36.8; O2SAT 97; BMI 18.9
[2020-11-05 12:08] VITALS: BP 163/80
--- NOTE | 2020-11-05 13:47 | ED_ITS ---
HPI - Abdominal Pain General Chief Complaint: Abdominal Pain Stated Complaint: ABDOMINAL PAIN Time Seen by Provider: 11/05/20 13:29 Source: patient Mode of arrival: EMS Limitations: other (The patient speaks Irish, 1st language is Citizen Of [place], lead pharmacy technician used) History of Present Illness HPI narrative: 80-year-old female who presents to the emergency department for evaluation of abdominal pain and constipation. The patient states that she was unable to move her bowels today. She states that she developed lower abdominal pain. She points to her suprapubic area when asked to localize the pain. She describes the pain as a discomfort which is constant and is moderate in intensity. She states she had similar pain in the past when she was constipated unable to move her bowels. She had associated nausea but no vomiting. She denies fever, chills, chest pain, shortness of breath, frequency, urgency or dysuria. 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 MD elicited complaint: abdominal pain Pertinent past history: constipation Onset (ago): day(s) (1) Pain Consistency: constant Location: suprapubic Severity: moderate Quality: dull Radiation: none Migration to: no migration Exacerbating factors: nothing Relieving factors: nothing Associated symptoms: nausea Related Data Previous Rx's Medication Instructions Recorded alum-mag hydroxide-simeth [Mylanta 10 ml PO TID PRN #1 ea 09/03/20 Maximum Strength] alum-mag hydroxide-simeth [Mylanta 10 ml PO TID PRN #1 ea 09/03/20 Maximum Strength] acetaminophen [Athenol] 650 mg PO Q6H PRN #30 tab 09/27/20 sucralfate [Carafate] 10 ml PO BID 14 Days #280 ml 10/16/20 Allergies Allergy/AdvReac Type Severity Reaction Status Date / Time azithromycin [From ZITHROMAX] Allergy Severe GENERIC Unverified 08/18/20 15:39 ONLY-SEVERE ABD PAIN, abdominal pain codeine [CODEINE] Allergy Intermediate NAUSEA & Unverified 08/18/20 15:39 VOMITING,FAINTED, nausea, vomiting, syncope erythromycin base Allergy Intermediate HIVES, ABD Unverified 08/18/20 15:39 [ERYTHROMYCIN BASE] PAIN promethazine [From PHENERGAN] Allergy Intermediate DIZZY / Unverified 08/18/20 15:39 NAUSEATED amoxicillin [Prevpac] Allergy Unknown Verified 06/21/20 00:00 clarithromycin [Prevpac] Allergy Unknown Verified 06/21/20 00:00 lansoprazole [Prevpac] Allergy Unknown Verified 06/21/20 00:00 Erythromycin Allergy Unknown hives, Uncoded 06/21/20 00:00 abdominal pain Review of Systems Review of Systems Yes all other systems are reviewed and are negative Constitutional: Reports as per HPI Eyes: Reports as per HPI Reports as per HPI Cardiovascular: Reports as per HPI Respiratory: Reports as per HPI Gastrointestinal: Reports as per HPI Genitourinary: Reports as per HPI Musculoskeletal: Reports as per HPI Skin/Breast: Reports as per HPI Reports as per HPI and Reports Abnormal speech present Psychiatric: Reports as per HPI Allergic/Immunologic: Reports as per HPI Physical Exam Vital Signs: Vital Signs: Last Vital Signs Temp 98.2 F 11/05/20 11:36 Pulse 84 11/05/20 11:36 Resp 20 11/05/20 11:36 BP 163/80 H 11/05/20 12:08 Pulse Ox 97 11/05/20 11:36 Body Mass Index 18.9 Const: General: cooperative, no acute distress, alert and awake Orientation/consciousness: oriented to person and oriented to place Limitations: no limitations HENMT: Head: Yes normal to inspection, Yes normocephalic and Yes atraumatic Ears: external ears normal General nose exam: Normal external nose present Face and sinus: Yes normal facial exam Mouth: Normal oral and palatal mucosa present Eyes: General: appearance normal, both eyes and all related structures Periorbital: periorbital findings normal Eyelids: Yes eyelids normal Conjunctivae: conjunctivae normal Sclerae: sclerae normal Corneas: corneas normal Pupils: Equal, round and reactive pupils present Direct Ophthalmoscopy: normal light reflex Neck: Neck: Yes normal visual inspection and Yes supple Lymphatic: no lymphadenopathy noted Chest: Chest palpation & inspection: normal inspection of the chest and normal palpation of entire chest wall Resp: Effort & Inspection: normal respiratory effort, abnormal respiratory pattern, no audible wheezes and no respiratory distress Auscultation: clear to auscultation bilaterally, no crackles, no rales, no rhonchi and no wheezes Cardio: Rate: regular rate Rhythm: regular rhythm Heart sounds: S1 normal heart sound present, S2 normal heart sound present and no murmurs GI: Inspection: No distended Palpation (GI): Soft to palpation, Tenderness to palpation present (GI) ([id number] suprapubic), no guarding and No hepatosplenomegaly present Auscultation: normal bowel sounds and other (Rectal revealed lose, stool, no impaction) : General: Yes no CVA tenderness Back/Spine/Pelvis: Back: no CVA tenderness Skin: General skin exam: no rashes or lesions noted Lesions: no lesions Rashes: no rashes Wounds: no wounds Neuro: General: oriented to person and oriented to place Cranial nerves: Yes CN's II-XII intact bilaterally and Yes Equal, round and reactive pupils present Cognition (Neuro): normal cognition Speech: Abnormal speech present Motor exam (neuro): 5/5 motor strength present throughout Extrem: General: Yes normal to inspection, Yes full ROM, Yes no pedal edema and Yes no calf tenderness Psych: Appearance: grossly normal Mental Status: mental status grossly normal Speech and movement: Clear speech present Affect: normal affect Thought process: Normal thought process present Course Course Course Narrative: 80-year-old female who presents to emergency department for evaluation of constipation and suprapubic abdominal pain. Physical examination did reveal bvhz-[id number] suprapubic tenderness. The patient's rectal exam revealed loose stool without impaction. The patient had a large loose bowel movement here in the emergency department. At this time I do not think the patient needs further evaluation and I will discharge her home. I advised her to take a stool softener Colace twice a day and to take Senokot every 4 days as needed for constipation. She was given printed instructions. She will need follow-up with her doctor for re-evaluation in 2 days. Discharge Plan Discharge Clinical Impression: Abdominal pain Qualifiers: Abdominal location: unspecified location Qualified Code(s): R10.9 - Unspecified abdominal pain Constipation Qualifiers: Constipation type: unspecified constipation type Qualified Code(s): K59.00 - Constipation, unspecified Patient Disposition: Home, Self-Care Instructions: Constipation (ED) Additional Instructions: Your rectal examination revealed loose stool, you are not impacted at this time. I want you to start to fozl-gzp-obdvyey medications to see if this helps with your constipation. Take Colace 1 pill twice a day. This is a stool softener. If you do not have a bowel movement in 4 days then take Senokot 1 pill twice a day for 2 days. This is also an crkx-fem-bwbracp medication. Follow-up with your doctor for re-evaluation. Please return to the emergency department if your symptoms get worse or if you develop any new symptoms that are concerning to you. Prescriptions: No Action alum-mag hydroxide-simeth [Mylanta Maximum Strength] 400-400-40 mg/5 mL suspension 10 ml PO TID PRN (Reason: indigestion) Qty: 1 RF: 0 alum-mag hydroxide-simeth [Mylanta Maximum Strength] 400-400-40 mg/5 mL suspension 10 ml PO TID PRN (Reason: indigestion) Qty: 1 RF: 0 acetaminophen [Athenol] 325 mg tablet 650 mg PO Q6H PRN (Reason: fever or pain) Qty: 30 RF: 0 sucralfate [Carafate] 100 mg/mL suspension 10 ml PO BID 14 Days Qty: 280 RF: 0 PMFSH Past Medical History PMF Narrative: Patient denies tobacco or alcohol use. She states she lives alone but has a ROLL OR TAPE EDGE MACHINE OPERATOR that helps care for her Medical History Anxiety GERD (gastroesophageal reflux disease) Social History Social History Alcohol intake: never Smoking Status: Never smoker Smoked in Last 30 Days: No Use of substances other than those prescribed or required for medical reasons: No Advance Directives: No Advance Directives Information Provided: No
--- NOTE | 2020-11-05 14:54 | PC.NURSE ---
reported when he went to do exam, pt had large bm. pt asking for food at this time. to be sent back to facility.
--- NOTE | 2020-11-05 18:25 | PC.NURSE ---
patient was to be [place] [facility] but patient is presenting rectal bleeding and md aware. patient to stay for further work up.
[2020-11-05] MEDS: 0.9 % Sodium Chloride 500 ML 1000 ML IV (18:47)
[2020-11-05 18:56] VITALS: BP 168/77; PULSE 85; RESP 17; TEMP 36.6; O2SAT 98
[2020-11-05 19:25] LABS: MANUAL DIFF FLAG NO
[2020-11-05 19:26] LABS: Basophils Percent Auto 0.2 % (0-2); Eosinophils Absolute Auto 0.1 X10*3/uL (0.0-0.4); Eosinophils Percent Auto 0.3 % (0-4); Hematocrit 41.7 % (37-47); Hemoglobin 13.6 g/dl (12.0-16.0); Imm Gran Abs Auto 0.07 X10*3/uL (0.00-0.03); Imm Gran Pct Auto 0.4 % (0.0-0.4); Lymphocytes Absolute Auto 1.1 X10*3/uL (1.2-4.9); Lymphocytes Percent Auto 7.1 % (20-40); Mean Corpuscular HGB Conc 32.6 g/dl (31.0-35.0); Mean Corpuscular Hemoglobin 27.8 pg (27.0-33.0); Mean Corpuscular Volume 85.1 fL (80-98); Mean Platelet Volume 9.7 fL (9.4-12.3); Monocytes Absolute Auto 0.9 X10*3/uL (0.1-1.2); Monocytes Percent Auto 5.4 % (2-11); Neutrophils Absolute Auto 13.7 X10*3/uL (2.0-8.3); Neutrophils Percent Auto 86.6 % (45-73); Platelet Count 237 X10*3/uL (160-400); Red Cell Distribution Width 15.2 % (11.0-16.0); White Blood Count 15.8 X10*3/uL (4.8-10.8)
[2020-11-05 19:49] LABS: Alanine Aminotransferase 16 U/L (0-31); Albumin Level 4.3 g/dL (3.5-5.0); Alkaline Phosphatase 95 U/L (39-117); Anion Gap 13 (12-20); Aspartate Amino Transferase 21 U/L (5-31); Bilirubin Direct 0.2 mg/dL (0.0-0.5); Bilirubin Total 0.6 mg/dL (0.0-1.0); Blood Urea Nitrogen 16 mg/dL (9-16); Calcium 9.6 mg/dL (8.4-10.2); Carbon Dioxide 28 mmol/L (22-29); Chloride 101 mmol/L (96-108); Creatinine Clr Calc Pharmacy 37.6; Estimated Glomerular Filt Rate 54; Glucose Random 117 mg/dL (60-115); Lipase 12 U/L (8-78); Potassium 3.8 mmol/l (3.3-5.1); Sodium 138 mmol/L (135-145)
[2020-11-05 20:56] LABS: Glucose Urine UA NEG (NEG); Leukocyte Esterase Urine NEG (NEG); Nitrite Urine NEG (NEG); Urine Blood 2+ (NEG); Urine Ketones NEG (NEG); Urine Protein NEG (NEG-TRACE)
[2020-11-05 20:58] LABS: Appearance Urine CLEAR; Color Urine STRAW
[2020-11-05 21:00] LABS: OBS Int Ctl Valid YES; OBS1 POS (NEG)
--- NOTE | 2020-11-05 21:05 | CT_ITS ---
EXAMINATION: CT ABDOMEN AND PELVIS WITH CONTRAST CLINICAL INFORMATION: Left lower quadrant abdominal pain, suprapubic pain, heme positive stool COMPARISON: CT abdomen pelvis 05/31/2020 TECHNIQUE: Multidetector volumetric images were obtained from the superior aspect of the liver through the pubic symphysis following administration 85 mL of Omnipaque 350 intravenous contrast. Sagittal and coronal reformatted images were obtained on the technologist's workstation. Oral contrast: No This CT examination was performed using dose optimization techniques as appropriate, variously including the following: *Automated exposure control *Adjustment of mA and/or kV according to patient size (this includes techniques or standardized protocols for targeted exams where dose is matched to indication/reason for exam; i.e. extremities or head) *Use of iterative reconstruction technique DLP: 449 mGy-cm FINDINGS: LUNG BASES: The visualized lung bases are unremarkable, although motion artifact degrades evaluation. LIVER, GALLBLADDER, AND BILIARY TREE: The liver is normal in size, shape, and attenuation. No focal hepatic lesion or biliary ductal dilatation is present. Status post cholecystectomy PANCREAS: Unremarkable. SPLEEN: Unremarkable. ADRENAL GLANDS: Unremarkable. KIDNEYS AND URETERS: The kidneys are normal in size, shape, and attenuation. Tiny bilateral hypodensities unchanged consistent with small cysts. No suspicious solid masses are seen. No hydronephrosis, hydroureter, or calculi seen. No perinephric stranding. BLADDER: Unremarkable. GASTROINTESTINAL TRACT: The rectosigmoid is grossly abnormal with wall thickening and pericolonic inflammatory changes. At the time of the previous study some very mild changes were present in the same area which appear significantly more marked on today's study and the pericolonic inflammatory change is new as is increased presacral soft tissue density. No extraluminal air is seen. No drainable fluid collection is detected. The small bowel and remainder of the large bowel are unremarkable. The appendix is unremarkable. ABDOMINAL WALL: No significant hernia is appreciated. LYMPH NODES: Normal. VASCULAR: Calcific atherosclerotic plaque present in the ectatic aorta and iliac vessels but no aneurysm seen. PELVIC VISCERA: An anteverted uterus is present. An abnormal adnexal mass is not seen OSSEOUS STRUCTURES: Unremarkable. CT/CT abdomen pelvis w con IMPRESSION: Marked inflammatory changes present in the rectosigmoid, increased when compared to the prior study. There is now inflammatory change in the pericolonic fat along with new presacral soft tissue thickening. Findings are consistent with acute colitis.
[2020-11-05 21:12] LABS: WBC Urine 0 /HPF (0-4)
[2020-11-05] MEDS: iohexoL 350 MG/ML 100 ML INFUS..BTL IV (21:42)
[2020-11-05 22:48] VITALS: BP 179/83; PULSE 88; RESP 20; TEMP 36.9; O2SAT 97
[2020-11-05 23:42] VITALS: BP 145/76; PULSE 97; RESP 18; O2SAT 100
[2020-11-06] MEDS: levoFLOXacin/D5W 500 MG/100 ML PIGGYBACK 100 MG IV
--- NOTE | 2020-11-06 00:28 | P.HPHOSP_ITS ---
History of Present Illness Date of Service: 11/05/20 Chief Complaint: bloody BM patient is Occitan-speaking only and history is obtained with the help of shredding specialist. This is a 80 yo F with pmhx of GERD who presents to the hospital complaints of Seen blood in her panties. Patient is also complaining of lower abdominal pain that is 10/10, nonradiating, constant, associated with constipation, this started yesterday, the pain has now completely resolved after receiving pain medication in the ED. She cannot describe the type of pain. she reports that although she is constipated today she did have diarrhea those slightly bloody yesterday. She had loss of bowel control which was new for her. She has not had any fever or chill, No urinary symptoms. No chest pain, shortness of breath, cough. No lower extremity edema. No recent use of antibiotics. [facility]. while in the ED patient was going to be discharged but after a rectal exam had a large BM that was bloody. Her Stool occult blood positive. on arrival to the ED patient hemodynamically stable with no significant abnormal vitals Labs are significant for WBC count of 15.8, with no other abnormal labs. Stable hemoglobin. CT abdomen shows marked inflammatory changes present in the rectosigmoid, increased when compared to the prior study. There is now inflammatory changes in the pericolonic fat along with new juventino sacral soft tissue thickening. Suggestive of acute colitis. Past medical history: GERD Past surgical history: Denies Family history: Denies social history: Reports that she usually is at home by herself, but currently living at a jail for the past 1 week after experiencing a fall. 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 If so, by whom?: No Do you feel safe in your current relationship?: No Current Relationship Is there a partner from a previous relationship who is making you feel unsafe now?: No Are you made to feel afraid or neglected: No Zoroastrianism Healthcare Practices: [facility] Advance Directives: No Advance Directives Information Provided: No Do you have thoughts of harming others: None Do you have a plan to hurt others: No Plan Recently lost weight without trying: No Meds Allergies Allergy/AdvReac Type Severity Reaction Status Date / Time azithromycin [From ZITHROMAX] Allergy Severe GENERIC Unverified 08/18/20 15:39 ONLY-SEVERE ABD PAIN, abdominal pain codeine [CODEINE] Allergy Intermediate NAUSEA & Unverified 08/18/20 15:39 VOMITING,FAINTED, nausea, vomiting, syncope erythromycin base Allergy Intermediate HIVES, ABD Unverified 08/18/20 15:39 [ERYTHROMYCIN BASE] PAIN promethazine [From PHENERGAN] Allergy Intermediate DIZZY / Unverified 08/18/20 15:39 NAUSEATED amoxicillin [Prevpac] Allergy Unknown Verified 06/21/20 00:00 clarithromycin [Prevpac] Allergy Unknown Verified 06/21/20 00:00 lansoprazole [Prevpac] Allergy Unknown Verified 06/21/20 00:00 Erythromycin Allergy Unknown hives, Uncoded 06/21/20 00:00 abdominal pain Physical Exam Vital Signs and Narrative: Vital Signs: Last Vital Signs Temp 98.4 F 11/05/20 22:48 Pulse 97 11/05/20 23:42 Resp 18 11/05/20 23:42 BP 145/76 H 11/05/20 23:42 Pulse Ox 100 11/05/20 23:42 Body Mass Index 18.9 Const: General: cooperative and no acute distress Orientation/consciousness: patient oriented x3 Eyes: General: appearance normal, both eyes and all related structures Pupils: Equal, round and reactive pupils present Resp: Effort & Inspection: normal respiratory effort and able to speak in complete sentences Auscultation: clear to auscultation bilaterally Cardio: Rate: regular rate Rhythm: regular rhythm GI: Other: has no abdominal tenderness on palpation, no rebound, no guarding Palpation (GI): Soft to palpation Skin: General skin exam: no rashes or lesions noted Neuro: General: patient oriented x3 Cranial nerves: Yes Equal, round and reactive pupils present Cognition (Neuro): normal cognition Speech: Abnormal speech present Extrem: General: Yes normal to inspection and Yes no pedal edema Results Labs CBC and Chem 7: 11/05/20 18:46 11/05/20 18:46 Labs: Laboratory Results - last 24 hr 11/05/20 11/05/20 11/05/20 18:46 18:46 20:34 MCV 85.1 MCH 27.8 MCHC 32.6 RDW 15.2 Plt Count 237 MPV 9.7 Immature Gran % (Auto) 0.4 Neut % (Auto) 86.6 H Lymph % (Auto) 7.1 L [place] % (Auto) 5.4 Eos % (Auto) 0.3 Baso % (Auto) 0.2 Lymph # (Auto) 1.1 L [place] # (Auto) 0.9 Eos # (Auto) 0.1 Baso # (Auto) 0.0 Abs Immat Gran (auto) 0.07 H Absolute Neuts (auto) 13.7 H Absolute Nucleated RBC 0.000 Nucleated RBC % (auto) 0.0 Anion Gap 13 Estim Creat Clear Calc 37.6 Estimated GFR 54 Random Glucose 117 H Calcium 9.6 Total Bilirubin 0.6 Direct Bilirubin 0.2 AST 21 ALT 16 Alkaline Phosphatase 95 Total Protein 8.0 Albumin 4.3 Lipase 12 Urine Color STRAW Urine Appearance CLEAR Urine pH 7.0 Ur Specific [place] 1.010 Urine Protein NEG Urine Glucose (UA) NEG Urine Ketones NEG Urine Blood 2+ H Urine Nitrite NEG Ur Leukocyte Esterase NEG Urine RBC 15-29 H Urine WBC 0 Ur Squamous Epith Cells NONE Urine Bacteria NONE Stool Occult Blood Blood Type Antibody Screen 11/05/20 11/05/20 20:36 20:38 MCV MCH MCHC RDW Plt Count MPV Immature Gran % (Auto) Neut % (Auto) Lymph % (Auto) [place] % (Auto) Eos % (Auto) Baso % (Auto) Lymph # (Auto) [place] # (Auto) Eos # (Auto) Baso # (Auto) Abs Immat Gran (auto) Absolute Neuts (auto) Absolute Nucleated RBC Nucleated RBC % (auto) Anion Gap Estim Creat Clear Calc Estimated GFR Random Glucose Calcium Total Bilirubin Direct Bilirubin AST ALT Alkaline Phosphatase Total Protein Albumin Lipase Urine Color Urine Appearance Urine pH Ur Specific [place] Urine Protein Urine Glucose (UA) Urine Ketones Urine Blood Urine Nitrite Ur Leukocyte Esterase Urine RBC Urine WBC Ur Squamous Epith Cells Urine Bacteria Stool Occult Blood POS Blood Type O Positive Antibody Screen NEGATIVE Imaging Radiologist's Impressions: Impressions Abdomen/Pelvis CT 11/05/20 21:05 IMPRESSION: Marked inflammatory changes present in the rectosigmoid, increased when compared to the prior study. There is now inflammatory change in the pericolonic fat along with new presacral soft tissue thickening. Findings are consistent with acute colitis. Assessment and Plan (1) Colitis: Status: Acute (2) Abdominal pain: Qualifiers: Abdominal location: unspecified location Qualified Code(s): R10.9 - Unspecified abdominal pain Status: Acute (3) Bright red blood per rectum: Status: Acute (4) GERD (gastroesophageal reflux disease): Status: Acute (5) Leukocytosis: Status: Acute this is a 80-year-old female with past medical history of of GERD who presents to the hospital with abdominal pain, bloody diarrhea found to have colitis # abdominal pain - most likely secondary to acute colitis - etiology of colitis unknown at this time, inflammatory versus infectious - patient denies any recent use of antibiotics plan: - received a dose of Flagyl and levofloxacin, will continue - follow blood cultures - C diff was sent by the ED- will follow results - NPO # colitis - management as above - consult general surgery - follow C diff and stool cultures # bright red blood per rectum - most likely secondary to colitis - does have history of GERD although she is not complaining of any epigastric pain - hemoglobin stable - lactic acid normal Plan: - Follow H&H - Prilosec b.i.d. - will hold off on GI consult at this time, if there is a drop in H&H will consider consult for possible endoscopy # leukocytosis - most likely secondary to the colitis - antibiotics as above - follow blood cultures - follow CBC DVT prophylaxis: Lovenox
[2020-11-06 00:33] LABS: COVID-19 Test Negative (Negative)
[2020-11-06] MEDS: Morphine Sulfate 4 MG/ML CARTRIDGE IVPUSH (01:05)
[2020-11-06] MEDS: metroNIDAZOLE/NS 500 MG/100 ML PIGGYBACK 100 MG IV ×4 (01:05→22:28)
[2020-11-06] MEDS: ondansetron HCL 4 MG/2 ML VIAL IVPUSH (01:05)
[2020-11-06 01:21] VITALS: BP 119/59; PULSE 56; RESP 18; O2SAT 95
[2020-11-06 01:50] LABS: Lactic Acid 1.7 mmol/L (0.5-2.0)
--- NOTE | 2020-11-06 01:50 | PC.NURSE ---
attempted to give report rn unavaible. per ca try again in 5 minutes
[2020-11-06] MEDS: 0.9 % Sodium Chloride 1,000 ML 100 ML IVCONT ×2 (03:07→14:49)
[2020-11-06 03:25] VITALS: BP 119/56; PULSE 76; RESP 18; TEMP 36.1; O2SAT 97
[2020-11-06 06:00] VITALS: BMI 22.4
[2020-11-06 06:21] LABS: MANUAL DIFF FLAG NO
[2020-11-06 06:51] VITALS: BP 128/60; PULSE 88; RESP 18; TEMP 36.6; O2SAT 96
[2020-11-06 06:55] LABS: Basophils Percent Auto 0.2 % (0-2); Eosinophils Absolute Auto 0.1 X10*3/uL (0.0-0.4); Eosinophils Percent Auto 0.5 % (0-4); Hematocrit 40.5 % (37-47); Hemoglobin 12.8 g/dl (12.0-16.0); Imm Gran Abs Auto 0.04 X10*3/uL (0.00-0.03); Imm Gran Pct Auto 0.3 % (0.0-0.4); Lymphocytes Absolute Auto 1.4 X10*3/uL (1.2-4.9); Mean Corpuscular HGB Conc 31.6 g/dl (31.0-35.0); Mean Corpuscular Hemoglobin 27.2 pg (27.0-33.0); Mean Platelet Volume 9.9 fL (9.4-12.3); Monocytes Percent Auto 8.1 % (2-11); Neutrophils Percent Auto 79.9 % (45-73); Platelet Count 239 X10*3/uL (160-400); Red Blood Count 4.71 X10*6/uL (4.20-5.50); Red Cell Distribution Width 15.2 % (11.0-16.0); White Blood Count 12.5 X10*3/uL (4.8-10.8)
[2020-11-06 07:06] LABS: Anion Gap 16 (12-20); Blood Urea Nitrogen 14 mg/dL (9-16); Carbon Dioxide 25 mmol/L (22-29); Chloride 104 mmol/L (96-108); Creatinine Clr Calc Pharmacy 42.2; Estimated Glomerular Filt Rate 55; Glucose Random 100 mg/dL (60-115); Potassium 4.1 mmol/l (3.3-5.1); Sodium 141 mmol/L (135-145)
[2020-11-06 08:45] LABS: C Reactive Protein 7.74 mg/dL (< or = 0.50)
--- NOTE | 2020-11-06 09:36 | PM.GICN ---
History of Present Illness Data of Consult Service Date: 11/06/20 Requesting physician: Leonor Dykes Primary Care Provider: Unknown Physician HPI Reason for consult: abdominal pain, hematochezia, abnormal CT scan of colon 80 YF Slovak speaking female with hypothyroidism, severe anxiety, history of lung nodule and breast cancer status post mastectomy in 1996 seen at [facility] yesterday with constipation and abdominal pain: presents to the emergency department for evaluation of abdominal pain and constipation. The patient states that she was unable to move her bowels today. She states that she developed lower abdominal pain. She points to her suprapubic area when asked to localize the pain. She describes the pain as a discomfort which is constant and is moderate in intensity. She states she had similar pain in the past when she was constipated unable to move her bowels. She had associated nausea but no vomiting. She denies fever, chills, chest pain, shortness of breath, frequency, urgency or dysuria. The patient states that she lives at a senior home but does have a HEALTH AND SOCIAL CARE TEACHER that helps care for her. The patient was about to be transported back to her facility when the nurse noted that the patient had bloody stool on the pad that she was sitting on followed by several episodes of bloody diarrhea. Labs showed white blood cell count of 15.8 CT scan showed colitis . Patient was started on IV Levaquin and metronidazole and admitted for further management. History obtained with the help of a Assistant Women'S Basketball Coach. Patient is a poor historian and did not answer appropriately to all questions - admitted that she is forgetful. She lives in an adult living facility Patient complains of intermittent lower abdominal pain for the past week. She also admits to constipation which she attributes to eating bread and has stopped taking it. Patient denies fever, chills or change in appetite. She admits to losing weight and weighs 114 lbs Last bowel movement was a few days ago Patient is status post cholecystectomy. IMAGING STUDIES: Abd CT scan showed: GASTROINTESTINAL TRACT: The rectosigmoid is grossly abnormal with wall thickening and pericolonic inflammatory changes. At the time of the previous study some very mild changes were present in the same area which appear significantly more marked on today's study and the pericolonic inflammatory change is new as is increased presacral soft tissue density. No extraluminal air is seen. No drainable fluid collection is detected. The small bowel and remainder of the large bowel are unremarkable. The appendix is unremarkable. VASCULAR: Calcific atherosclerotic plaque present in the ectatic aorta and iliac vessels but no aneurysm seen. PELVIC VISCERA: An anteverted uterus is present. An abnormal adnexal mass is not seen IMPRESSION: Marked inflammatory changes present in the rectosigmoid, increased when compared to the prior study. There is now inflammatory change in the pericolonic fat along with new presacral soft tissue thickening. Findings are consistent with acute colitis. Patient denies known family history of colon polyps, colon cancer or other GI malignancies. PAST GI HISTORY BY REVIEW OF MEDICAL RECORDS: Pt was hospitalized in 2011 and 08/2019 with colitis. Advised to have a Colonoscopy and did not schedule since she was scared. Scheduled in 08/21 and cancelled since she did not have a ride. She is scheduled for a colonoscopy on 11/10/[address] Saenz. Review of Systems Constitutional: Constitutional: Denies fever(s), Denies headache(s) and Denies weight loss Eyes: Eyes: Denies eye discharge and Denies irritation ENT: Reports Normal hearing present, Denies dysphagia, Denies dizziness and Denies headache(s) Cardiovascular: Cardiovascular: Denies chest pain, Denies leg edema and Denies dyspnea on exertion Respiratory: Respiratory: Denies cough and Denies dyspnea on exertion Gastrointestinal: Gastrointestinal: Reports abdominal pain, Denies change in bowel habits, Denies dysphagia and Denies heartburn Genitourinary: Genitourinary: Denies difficulty voiding and Denies dysuria Musculoskeletal: Musculoskeletal: Denies back pain and Denies arthralgias Integumentary/Breasts: Skin/Breast: Denies pruritus, Denies rash and Denies jaundice Neurologic: Reports as per HPI, Reports Normal hearing present, Reports Abnormal speech present, Denies dizziness, Denies headache(s) and Reports memory loss Psychiatric: Psychiatric: Reports anxiety, Denies depression, Reports memory loss and Denies panic attacks Endocrine: Endocrine: Denies cold intolerance, Denies flushing and Denies heat intolerance PMFSH Past Medical History Medical History Anxiety Arthritis Dysphagia GERD (gastroesophageal reflux disease) GI bleed History of anemia History of colitis Hx of breast cancer Hx of syncope Hypothyroid Weight loss, unintentional Family History Family History (Updated 11/28/20 @ 12:47 by Violet Martins CMA) Father No problems noted. Mother Hx of colon cancer, stage IV Surgical History Surgical History History of ankle surgery Social History Social History (Updated 11/28/20 @ 12:47 by Violet Martins CMA) Household Members: None Housing: Apartment Alcohol intake: never Smoking Status: Never smoker Use of substances other than those prescribed or required for medical reasons: No service: No Current occupational status: retired [employer] Allergies Allergy/AdvReac Type Severity Reaction Status Date / Time azithromycin [From ZITHROMAX] Allergy Severe GENERIC Verified 11/07/20 01:17 ONLY-SEVERE ABD PAIN, abdominal pain codeine [CODEINE] Allergy Intermediate NAUSEA & Verified 11/07/20 01:17 VOMITING,FAINTED, nausea, vomiting, syncope erythromycin base Allergy Intermediate HIVES, ABD Verified 11/07/20 01:17 [ERYTHROMYCIN BASE] PAIN promethazine [From PHENERGAN] Allergy Intermediate DIZZY / Verified 11/07/20 01:17 NAUSEATED amoxicillin [Prevpac] Allergy Unknown Unknown Verified 11/07/20 01:17 clarithromycin [Prevpac] Allergy Unknown Unknown Verified 11/07/20 01:17 Erythromycin Allergy Unknown hives, Uncoded 06/21/20 00:00 abdominal pain Home Medications Medication Instructions Recorded Confirmed Type Zyrtec 10 mg PO BEDTIME 11/07/20 11/07/20 History levothyroxine 1 tab PO DAILY 11/07/20 11/07/20 History cholecalciferol (vitamin D3) 25 25 mcg PO DAILY 11/28/20 History mcg (1,000 unit) capsule ondansetron HCl 4 mg tablet 4 mg PO Q8H 11/28/20 History pantoprazole 40 mg tablet,delayed 40 mg PO DAILY 11/28/20 History release sennosides 8.6 mg tablet 8.6 mg PO BEDTIME 11/28/20 History Physical Exam Vital Signs: Vital Signs: Last Vital Signs Temp 98 F 11/06/20 06:51 Pulse 88 11/06/20 06:51 Resp 18 11/06/20 06:51 BP 128/60 11/06/20 06:51 Pulse Ox 96 11/06/20 06:51 Body Mass Index 22.4 Const: General: healthy appearing and no acute distress Nutritional Appearance: average body habitus Orientation/consciousness: patient oriented x3 Limitations: no limitations HENMT: Head: Yes normal to inspection Ears: hearing grossly normal bilaterally Mouth: Normal oral and palatal mucosa present Eyes: Sclerae: sclerae normal Pupils: Equal, round and reactive pupils present Neck: Neck: Yes normal visual inspection Chest: Chest palpation & inspection: normal inspection of the chest Resp: Effort & Inspection: normal respiratory effort Auscultation: clear to auscultation bilaterally Cardio: Palpation: normal PMI Rate: regular rate Rhythm: regular rhythm Heart sounds: S1 normal heart sound present, S2 normal heart sound present and no murmurs GI: Palpation (GI): Soft to palpation, nontender and No hepatosplenomegaly present Auscultation: normal bowel sounds Rectal Exam - Female: deferred Skin: General skin exam: no rashes or lesions noted Neuro: General: patient oriented x3, gait normal and moves all extremities Cranial nerves: Yes Equal, round and reactive pupils present and Yes Normal hearing present Speech: Abnormal speech present Psych: Appearance: grossly normal Mental Status: mental status grossly normal Results Labs CBC & Chem 7: 11/08/20 05:20 11/07/20 05:13 Labs: Short CBC 11/05/20 11/06/20 Range/Units 18:46 05:13 WBC 15.8 H 12.5 H (4.8-10.8) X10*3/uL Hgb 13.6 12.8 (12.0-16.0) g/dl Hct 41.7 40.5 (37-47) % Plt Count 237 239 (160-400) X10*3/uL [facility] 11/05/20 11/06/20 18:46 05:12 Sodium 138 141 Potassium 3.8 4.1 Chloride 101 104 Carbon Dioxide 28 25 BUN 16 14 Creatinine 0.99 0.97 Calcium 9.6 9.0 D Liver Function 11/05/20 Range/Units 18:46 Total Bilirubin 0.6 (0.0-1.0) mg/dL Direct Bilirubin 0.2 (0.0-0.5) mg/dL AST 21 (5-31) U/L ALT 16 (0-31) U/L Alkaline Phosphatase 95 (39-117) U/L Albumin 4.3 (3.5-5.0) g/dL Urine 11/05/20 Range/Units 20:34 Urine Color STRAW Urine Appearance CLEAR Urine pH 7.0 (5.0-8.0) Ur Specific [place] 1.010 (1.005-1.025) Urine Protein NEG (NEG-TRACE) MG/DL Urine Glucose (UA) NEG (NEG) MG/DL Assessment and Plan (1) Bright red blood per rectum: (2) Leukocytosis: Status: Resolved (3) Colitis: Status: Acute (4) Abdominal pain: Qualifiers: Abdominal location: unspecified location Qualified Code(s): R10.9 - Unspecified abdominal pain Status: Resolved (5) Constipation: Qualifiers: Constipation type: unspecified constipation type Qualified Code(s): K59.00 - Constipation, unspecified 80 YF Slovak speaking female with hypothyroidism, severe anxiety, history of lung nodule and breast cancer status post mastectomy in 1996 admitted with abdomal pain, constipation and rectal bleeding. Patient has had prior hospitalization with similar presentation in 2011. Labs showed Elevated WBC count with left shift and an elevated CRP of 7.74. Abd CT scan showed Marked inflammatory changes present in the rectosigmoid, increased when compared to the prior study. There is now inflammatory change in the pericolonic fat along with new presacral soft tissue thickening. Patient was scheduled for an outpatient colonoscopy in August 2020 and cancelled her appointment due to transportation issues. She is rescheduled for 11/10/2020 - given her social situation it is unclear if she will be able to prep on her own and show up for her appointment. RECOMMENDATIONS: 1. continue IV antibiotics. 2. Start clear liquid diet tomorrow with Colyte prep. 3. I will schedule her for a colonoscopy on 11/08/20
[2020-11-06] MEDS: Acetaminophen 325 MG TABLET 650 MG PO ×3 (09:56→22:30)
[2020-11-06 11:04] VITALS: BP 121/58; PULSE 65; RESP 18; TEMP 36; O2SAT 96
--- NOTE | 2020-11-06 12:36 | MHC.CM.PN ---
Pt reports she lives alone but has a [employer] STYLIST that comes daily. Pt reports she has been at a STR for the last couple weeks but she wants to go home at [place]. Pt reports she wants to go home for [place]. Pt was at [facility]. A referral was sent to them in the event pt requires STR. Pt reports she will need a chair van at [place]. Current dC plan is TBD. Home with resumption of [employer] vs return to STR
--- NOTE | 2020-11-06 13:18 | HO.PM.IMPN ---
Subjective Subjective Date of Service: 11/06/20 Interval History: History taken in [place] from the patient. She denies any further abd pain or hematochezia and feels quite well. No dyspnea or chest pain. No nausea or vomiting. No prior colonoscopy per her recall. Physical Exam Vital Signs: Vital Signs: Last Vital Signs Temp 96.8 F 11/06/20 11:04 Pulse 65 11/06/20 11:04 Resp 18 11/06/20 11:04 BP 121/58 L 11/06/20 11:04 Pulse Ox 96 11/06/20 11:04 Body Mass Index 22.4 Gen: in no acute distress HEENT: sclera anicteric, moist mucus membranes Neck: supple Lungs: clear to auscultation bilaterally Heart: regular rate and rhythm, no murmurs Abd: soft, non-tender, non-distended Ext: no edema Skin: warm/well-perfused Neuro: alert and oriented x3, no focal findings Psych: appropriate affect Objective Data Current Medications Generic Name Dose Route Start Last Admin Trade Name Bonq PRN Reason Stop Dose Admin Acetaminophen 650 mg 11/06/20 02:48 11/06/20 09:56 Acetaminophen 325 Mg Tablet PO 650 mg Q6H PRN Administration Pain, Mild (Pain Scale 1-3) Docusate Sodium 100 mg 11/06/20 02:48 Docusate Sodium 100 Mg Capsule PO DAILY PRN Constipation Enoxaparin Sodium 40 mg 11/06/20 02:48 11/06/20 03:30 Enoxaparin Sodium 40 Mg/0.4 Ml Syringe SUBCUT Not Given Q24H JABARI Sodium Chloride 1,000 mls @ 100 mls/hr 11/06/20 02:48 11/06/20 12:35 Ns IVCONT Not Given .Q10H JABARI Levofloxacin 750 mg in 150 mls @ 100 mls/hr 11/06/20 22:00 Levaquin IV Q24H JABARI Metronidazole 500 mg in 100 mls @ 100 mls/hr 11/06/20 07:00 11/06/20 08:42 Flagyl IV Infused Q8H JABARI Infusion Omeprazole 40 mg 11/06/20 06:30 11/06/20 07:44 Omeprazole 40 Mg Capsule.Dr PO Not Given BID@0630,1630 JABARI Ondansetron HCl 4 mg 11/06/20 02:48 Ondansetron Hcl 4 Mg/2 Ml Vial IVPUSH Q8H PRN Nausea and Vomiting Sodium Chloride 3 ml 11/06/20 02:48 11/06/20 07:44 0.9 % Sodium Chloride Flush 3 Ml Syringe IVFLUSH Not Given QSHIFT [facility] Labs CBC & Chem 7: 11/06/20 05:13 11/06/20 05:12 Labs: Laboratory Results - last 24 hr 11/05/20 11/05/20 11/05/20 18:46 18:46 20:34 WBC 15.8 H RBC 4.90 Hgb 13.6 Hct 41.7 MCV 85.1 MCH 27.8 MCHC 32.6 RDW 15.2 Plt Count 237 MPV 9.7 Immature Gran % (Auto) 0.4 Neut % (Auto) 86.6 H Lymph % (Auto) 7.1 L [place] % (Auto) 5.4 Eos % (Auto) 0.3 Baso % (Auto) 0.2 Lymph # (Auto) 1.1 L [place] # (Auto) 0.9 Eos # (Auto) 0.1 Baso # (Auto) 0.0 Abs Immat Gran (auto) 0.07 H Absolute Neuts (auto) 13.7 H Absolute Nucleated RBC 0.000 Nucleated RBC % (auto) 0.0 Sodium 138 Potassium 3.8 Chloride 101 Carbon Dioxide 28 Anion Gap 13 BUN 16 Creatinine 0.99 Estim Creat Clear Calc 37.6 Estimated GFR 54 Random Glucose 117 H Lactic Acid Calcium 9.6 Total Bilirubin 0.6 Direct Bilirubin 0.2 AST 21 ALT 16 Alkaline Phosphatase 95 C-Reactive Protein Total Protein 8.0 Albumin 4.3 Lipase 12 Urine Color STRAW Urine Appearance CLEAR Urine pH 7.0 Ur Specific [place] 1.010 Urine Protein NEG Urine Glucose (UA) NEG Urine Ketones NEG Urine Blood 2+ H Urine Nitrite NEG Ur Leukocyte Esterase NEG Urine RBC 15-29 H Urine WBC 0 Ur Squamous Epith Cells NONE Urine Bacteria NONE Stool Occult Blood COVID-19 (LYUBOV) COVID-19 Clin Com Blood Type Antibody Screen 11/05/20 11/05/20 11/06/20 20:36 20:38 00:04 WBC RBC Hgb Hct MCV MCH MCHC RDW Plt Count MPV Immature Gran % (Auto) Neut % (Auto) Lymph % (Auto) [place] % (Auto) Eos % (Auto) Baso % (Auto) Lymph # (Auto) [place] # (Auto) Eos # (Auto) Baso # (Auto) Abs Immat Gran (auto) Absolute Neuts (auto) Absolute Nucleated RBC Nucleated RBC % (auto) Sodium Potassium Chloride Carbon Dioxide Anion Gap BUN Creatinine Estim Creat Clear Calc Estimated GFR Random Glucose Lactic Acid Calcium Total Bilirubin Direct Bilirubin AST ALT Alkaline Phosphatase C-Reactive Protein Total Protein Albumin Lipase Urine Color Urine Appearance Urine pH Ur Specific [place] Urine Protein Urine Glucose (UA) Urine Ketones Urine Blood Urine Nitrite Ur Leukocyte Esterase Urine RBC Urine WBC Ur Squamous Epith Cells Urine Bacteria Stool Occult Blood POS COVID-19 (LYUBOV) Negative COVID-19 Clin Com See Note Blood Type O Positive Antibody Screen NEGATIVE 11/06/20 11/06/20 11/06/20 01:19 05:12 05:13 WBC 12.5 H RBC 4.71 Hgb 12.8 Hct 40.5 MCV 86.0 MCH 27.2 MCHC 31.6 RDW 15.2 Plt Count 239 MPV 9.9 Immature Gran % (Auto) 0.3 Neut % (Auto) 79.9 H Lymph % (Auto) 11.0 L [place] % (Auto) 8.1 Eos % (Auto) 0.5 Baso % (Auto) 0.2 Lymph # (Auto) 1.4 [place] # (Auto) 1.0 Eos # (Auto) 0.1 Baso # (Auto) 0.0 Abs Immat Gran (auto) 0.04 H Absolute Neuts (auto) 10.0 H Absolute Nucleated RBC 0.000 Nucleated RBC % (auto) 0.0 Sodium 141 Potassium 4.1 Chloride 104 Carbon Dioxide 25 Anion Gap 16 BUN 14 Creatinine 0.97 Estim Creat Clear Calc 42.2 Estimated GFR 55 Random Glucose 100 Lactic Acid 1.7 Calcium 9.0 D Total Bilirubin Direct Bilirubin AST ALT Alkaline Phosphatase C-Reactive Protein 7.74 H Total Protein Albumin Lipase Urine Color Urine Appearance Urine pH Ur Specific [place] Urine Protein Urine Glucose (UA) Urine Ketones Urine Blood Urine Nitrite Ur Leukocyte Esterase Urine RBC Urine WBC Ur Squamous Epith Cells Urine Bacteria Stool Occult Blood COVID-19 (LYUBOV) COVID-19 Clin Com Blood Type Antibody Screen Assessment and Plan (1) Bright red blood per rectum: Status: Acute (2) Colitis: Status: Acute Assessment and Plan: hospital d#2 80yo F presenting with hematochezia, admitted for colitis # colitis # hematochezia - per GI internal audit consultant, C-scope while inpt to be arranged for 11/08/20 - continue antibiotics levofloxacin + metronidazole both d#2 - stool Cx, WBC, C. diff ordered # GERD - PPI # VTE ppx - BLE SCDs, hold LMWH
[2020-11-06 15:28] VITALS: BP 120/60; PULSE 66; RESP 18; TEMP 36.4; O2SAT 98
[2020-11-06] MEDS: Omeprazole 40 MG CAPSULE.DR PO (16:28)
[2020-11-06 19:10] VITALS: BP 131/63; PULSE 69; RESP 18; TEMP 36.6; O2SAT 98
[2020-11-06] MEDS: levoFLOXacin/D5W 750 MG/150 ML PIGGYBACK 100 MG IV (21:49)
[2020-11-07] VITALS (8 sets, daily range): BP systolic 133–156; BP diastolic 62–77; PULSE 66–75; RESP 16–20; TEMP 36.7–37.1; O2SAT 94–98; BMI 22.7
[2020-11-07] MEDS: 0.9 % Sodium Chloride 1,000 ML 100 ML IVCONT ×2 (01:24→17:18)
[2020-11-07 05:59] LABS: MANUAL DIFF FLAG NO
[2020-11-07] MEDS: Omeprazole 40 MG CAPSULE.DR PO ×2 (05:59→15:10)
[2020-11-07] MEDS: metroNIDAZOLE/NS 500 MG/100 ML PIGGYBACK 100 MG IV ×3 (06:00→22:50)
[2020-11-07 06:08] LABS: Basophils Percent Auto 0.2 % (0-2); Eosinophils Absolute Auto 0.1 X10*3/uL (0.0-0.4); Eosinophils Percent Auto 1.1 % (0-4); Hematocrit 37.1 % (37-47); Hemoglobin 11.9 g/dl (12.0-16.0); Imm Gran Abs Auto 0.02 X10*3/uL (0.00-0.03); Imm Gran Pct Auto 0.2 % (0.0-0.4); Lymphocytes Absolute Auto 1.5 X10*3/uL (1.2-4.9); Lymphocytes Percent Auto 16.7 % (20-40); Mean Corpuscular HGB Conc 32.1 g/dl (31.0-35.0); Mean Corpuscular Hemoglobin 27.4 pg (27.0-33.0); Mean Corpuscular Volume 85.3 fL (80-98); Mean Platelet Volume 10.1 fL (9.4-12.3); Monocytes Absolute Auto 0.7 X10*3/uL (0.1-1.2); Monocytes Percent Auto 8.1 % (2-11); Neutrophils Absolute Auto 6.6 X10*3/uL (2.0-8.3); Neutrophils Percent Auto 73.7 % (45-73); Platelet Count 214 X10*3/uL (160-400); Red Blood Count 4.35 X10*6/uL (4.20-5.50); Red Cell Distribution Width 15.3 % (11.0-16.0); White Blood Count 8.9 X10*3/uL (4.8-10.8)
[2020-11-07 07:09] LABS: Anion Gap 12 (12-20); Blood Urea Nitrogen 11 mg/dL (9-16); Calcium 8.7 mg/dL (8.4-10.2); Carbon Dioxide 27 mmol/L (22-29); Chloride 107 mmol/L (96-108); Creatinine Clr Calc Pharmacy 49.4; Estimated Glomerular Filt Rate > 60; Glucose Random 85 mg/dL (60-115); Potassium 3.8 mmol/l (3.3-5.1); Sodium 142 mmol/L (135-145)
--- NOTE | 2020-11-07 11:49 | MHC.CM.PN ---
Patient has been seen by PT who recommends STR, patient is from [facility] and will return there. Patient is on IVF, IV Flagyl and IV levaquin. Plan is for colonoscopy tomorrow 11/08/20. CM will continue to follow for discharge needs.
[2020-11-07] MEDS: bisacodyL 5 MG TABLET.DR 10 MG PO (13:01)
[2020-11-07] MEDS: PEG 3350/Na Sulf,Bicarb,Cl/KCL 4,000 ML SOLN.RECON 4000 ML PO (14:40)
[2020-11-07] MEDS: 0.9 % Sodium Chloride Flush 3 ML SYRINGE IVFLUSH (15:10)
--- NOTE | 2020-11-07 15:32 | HO.PM.IMPN ---
Subjective Subjective Date of Service: 11/07/20 Interval History: No abd pain, nausea, vomiting, diarrhea, or hematochezia. Physical Exam Vital Signs: Vital Signs: Last Vital Signs Temp 98.8 F 11/07/20 15:19 Pulse 66 11/07/20 15:19 Resp 18 11/07/20 15:19 BP 143/62 H 11/07/20 15:19 Pulse Ox 97 11/07/20 15:19 Body Mass Index 22.7 Gen: in no acute distress HEENT: sclera anicteric, moist mucus membranes Neck: supple Lungs: clear to auscultation bilaterally Heart: regular rate and rhythm, no murmurs Abd: soft, non-tender, non-distended Ext: no edema Skin: warm/well-perfused Neuro: alert and oriented x3, no focal findings Psych: appropriate affect Objective Data Current Medications Generic Name Dose Route Start Last Admin Trade Name Freq PRN Reason Stop Dose Admin Acetaminophen 650 mg 11/06/20 02:48 11/06/20 22:30 Acetaminophen 325 Mg Tablet PO 650 mg Q6H PRN Administration Pain, Mild (Pain Scale 1-3) Docusate Sodium 100 mg 11/06/20 02:48 Docusate Sodium 100 Mg Capsule PO DAILY PRN Constipation Enoxaparin Sodium 40 mg 11/06/20 02:48 11/06/20 03:30 Enoxaparin Sodium 40 Mg/0.4 Ml Syringe SUBCUT Not Given Q24H JABARI Sodium Chloride 1,000 mls @ 100 mls/hr 11/06/20 02:48 11/07/20 12:32 Ns IVCONT Infused .Q10H JABARI Infusion Levofloxacin 750 mg in 150 mls @ 100 mls/hr 11/06/20 22:00 11/06/20 23:23 Levaquin IV Infused Q24H JABARI Infusion Metronidazole 500 mg in 100 mls @ 100 mls/hr 11/06/20 07:00 11/07/20 15:10 Flagyl IV 100 mls/hr Q8H JABARI Administration Omeprazole 40 mg 11/06/20 06:30 11/07/20 15:10 Omeprazole 40 Mg Capsule. PO 40 mg BID@0630,1630 JABARI Administration Ondansetron HCl 4 mg 11/06/20 02:48 Ondansetron Hcl 4 Mg/2 Ml Vial IVPUSH Q8H PRN Nausea and Vomiting Sodium Chloride 3 ml 11/06/20 02:48 11/07/20 15:10 0.9 % Sodium Chloride Flush 3 Ml Syringe IVFLUSH 3 ml QSHIFT JABARI Administration Labs CBC & Chem 7: 11/07/20 05:13 11/07/20 05:13 Labs: Laboratory Results - last 24 hr 11/07/20 11/07/20 05:13 05:13 WBC 8.9 RBC 4.35 Hgb 11.9 L Hct 37.1 MCV 85.3 MCH 27.4 MCHC 32.1 RDW 15.3 Plt Count 214 MPV 10.1 Immature Gran % (Auto) 0.2 Neut % (Auto) 73.7 H Lymph % (Auto) 16.7 L [place] % (Auto) 8.1 Eos % (Auto) 1.1 Baso % (Auto) 0.2 Lymph # (Auto) 1.5 [place] # (Auto) 0.7 Eos # (Auto) 0.1 Baso # (Auto) 0.0 Abs Immat Gran (auto) 0.02 Absolute Neuts (auto) 6.6 Absolute Nucleated RBC 0.000 Nucleated RBC % (auto) 0.0 Sodium 142 Potassium 3.8 Chloride 107 Carbon Dioxide 27 Anion Gap 12 BUN 11 Creatinine 0.83 Estim Creat Clear Calc 49.4 Estimated GFR > 60 Random Glucose 85 Calcium 8.7 Microbiology Microbiology Results: Microbiology 11/05/20 23:37 Blood - Venous Blood Culture - Preliminary No growth after 24 hours. 11/05/20 23:37 Blood - Venous Blood Culture - Preliminary No growth after 24 hours. Assessment and Plan (1) Bright red blood per rectum: Status: Acute (2) Colitis: Status: Acute Assessment and Plan: hospital d#3 80yo F presenting with hematochezia, admitted for colitis # colitis # hematochezia - GI consulted, plan C-scope tomorrow, prep today - continue antibiotics levofloxacin + metronidazole both d#3 - stool Cx, WBC, C. diff ordered but has not had BM since arrival # GERD - PPI # VTE ppx - BLE SCDs, hold LMWH
[2020-11-07] MEDS: Magnesium Citrate 300 ML SOLUTION PO (17:19)
[2020-11-07] MEDS: levoFLOXacin/D5W 750 MG/150 ML PIGGYBACK 100 MG IV (21:02)
[2020-11-08] MEDS: 0.9 % Sodium Chloride 1,000 ML 100 ML IVCONT (03:24)
[2020-11-08 04:00] VITALS: BP 166/80; PULSE 82; RESP 20; TEMP 36.8; O2SAT 93
[2020-11-08] MEDS: Omeprazole 40 MG CAPSULE.DR PO (05:50)
[2020-11-08 06:00] VITALS: BMI 21.8
[2020-11-08] MEDS: metroNIDAZOLE/NS 500 MG/100 ML PIGGYBACK 100 MG IV (06:00)
[2020-11-08 06:30] LABS: MANUAL DIFF FLAG NO
[2020-11-08 06:43] LABS: Basophils Percent Auto 0.4 % (0-2); Eosinophils Absolute Auto 0.1 X10*3/uL (0.0-0.4); Eosinophils Percent Auto 0.9 % (0-4); Hematocrit 39.7 % (37-47); Hemoglobin 12.8 g/dl (12.0-16.0); Imm Gran Abs Auto 0.02 X10*3/uL (0.00-0.03); Imm Gran Pct Auto 0.3 % (0.0-0.4); Lymphocytes Absolute Auto 1.2 X10*3/uL (1.2-4.9); Lymphocytes Percent Auto 16.7 % (20-40); Mean Corpuscular HGB Conc 32.2 g/dl (31.0-35.0); Mean Corpuscular Hemoglobin 27.5 pg (27.0-33.0); Mean Corpuscular Volume 85.2 fL (80-98); Monocytes Absolute Auto 0.5 X10*3/uL (0.1-1.2); Monocytes Percent Auto 7.6 % (2-11); Neutrophils Absolute Auto 5.1 X10*3/uL (2.0-8.3); Neutrophils Percent Auto 74.1 % (45-73); Platelet Count 231 X10*3/uL (160-400); Red Blood Count 4.66 X10*6/uL (4.20-5.50); Red Cell Distribution Width 15.1 % (11.0-16.0); White Blood Count 6.9 X10*3/uL (4.8-10.8)
[2020-11-08 07:02] VITALS: BP 163/66; PULSE 84; RESP 16; TEMP 36.3; O2SAT 98
[2020-11-08 07:03] VITALS: BMI 20.2
[2020-11-08 07:11] LABS: C Reactive Protein 7.66 mg/dL (< or = 0.50)
--- NOTE | 2020-11-08 07:22 | PC.NURSE ---
patient placed on monitor and noted to be SR with flipped t and p waves compared to 12 lead 10/2020. Anti aware with no for ekg now.
--- NOTE | 2020-11-08 07:23 | ECG_ITS ---
Test Reason : EKG CHANGES Blood Pressure : / mmHG Vent. Rate : 087 BPM Atrial Rate : 087 BPM P-R Int : 172 ms QRS Dur : 074 ms QT Int : 378 ms P-R-T Axes : 072 009 049 degrees QTc Int : 454 ms Normal sinus rhythm Voltage criteria for left ventricular hypertrophy Cannot rule out Septal infarct , age undetermined Abnormal ECG No significant changes when compared with the previous EKG of 2019 Referred By: Margie Rice Electronically Signed By:COURTNEY RIVERA
--- NOTE | 2020-11-08 07:23 | MHC.SHP ---
Pre-Procedural Eval Section A The patient is an INPATIENT: Yes Changes since office visit: Yes New Medical Problems and Yes Patient answered all questions; No Cold of Flu in the past 2 weeks The History & Physical has been completed within 30 days and I have reviewed it.: Yes Section B Chief Complaint: ABDOMINAL PAIN Allergies: Allergies Allergy/AdvReac Type Severity Reaction Status Date / Time azithromycin [From ZITHROMAX] Allergy Severe GENERIC Verified 11/07/20 01:17 ONLY-SEVERE ABD PAIN, abdominal pain codeine [CODEINE] Allergy Intermediate NAUSEA & Verified 11/07/20 01:17 VOMITING,FAINTED, nausea, vomiting, syncope erythromycin base Allergy Intermediate HIVES, ABD Verified 11/07/20 01:17 [ERYTHROMYCIN BASE] PAIN promethazine [From PHENERGAN] Allergy Intermediate DIZZY / Verified 11/07/20 01:17 NAUSEATED amoxicillin [Prevpac] Allergy Unknown Unknown Verified 11/07/20 01:17 clarithromycin [Prevpac] Allergy Unknown Unknown Verified 11/07/20 01:17 Erythromycin Allergy Unknown hives, Uncoded 06/21/20 00:00 abdominal pain Plan Patient has been examined and remains a candidate for the planned procedure
--- NOTE | 2020-11-08 07:23 | W.PM.OPN ---
Operative Note Operative Note Date of Service: 11/08/20 Narrative: Pre-op diagnosis: Constipation, rectal bleeding, abnormal CT scan of the colon Post-op diagnosis: other (proctitis, diverticulosis, hemorrhoids) Procedure: COLONOSCOPY TILL CECUM WITH BIOPSIES Consent: Indications for the procedure and potential complications of bleeding, perforation, reaction to medications and missed diagnosis were discussed with the patient and informed consent was obtained. Instrument: Olympus PCF H 190 L variable stiffness pediatric colonoscope Monitoring: Vital signs and clinical assessment, intermittent blood pressure monitoring, continuous EKG monitoring, Pulse oximetry and Carbon Dioxide monitoring were done throughout the procedure. Colon withdrawl time was 17 minutes. Procedure: The patient was placed in the left lateral decubitis position and pre-procedure medications were administered. After a digital rectal examination of the ano-rectum, the video colonoscope was inserted into the rectum and advanced through the colon to the cecum. The colonoscope was slowly withdrawn in a retrograde panoramic fashion and the colon mucosa was carefully examined including a retroflexed view of the rectum. Findings and interventions are described below. Procedure Difficulty: Without difficulty Findings: Terminal Ileum: Distal 10 cms was examined and appeared normal Cecum: Normal Ascending Colon: Normal Transverse Colon: Normal Descending Colon: Normal Sigmoid Colon: Moderate diverticulosis Rectum: Edema, erythema with ulcerations noted from 0-20 cms - multiple biopsies were obtained Ano-rectum: Moderate internal hemorrhoids on antegrade witrhdrawl. Retroflexed exam was not performed due to rectal inflammation. Colon preparation: Good after some irrigation Impression and Post Procedure Diagnosis: Colonoscopy Findings: Edema, erythema with ulcerations noted from 0-20 cms - multiple biopsies were obtained from the rectum, right and left colon. Rectal ulcerations likely due to proctitis versus stercoral ulcers from hard stools versus solitary rectal ulcer syndrome No polyps were detected Moderate diverticulosis seen in the sigmoid colon Moderate hemorrhoids on retroflexed exam. Plan: Await pathology results. Miralax and stool softeners daily for constipation. Patient has an appointment on 11/22/20 in the GI Clinic with Martínez Bess M.D.. Repeat Flexible Sigmoidoscopy in 6 -12 months to follow up on proctitis. Above findings were reviewed with the patient and diverticulosis handouts were given in the discharge area Surgeon: Apryl Vail MD Anesthesia: MAC (Dr Rice) Estimated blood loss (mL): 0 Pathology: other (A. Rt colon, B. Lt colon, C. rectum) Condition: stable Disposition: PACU
--- NOTE | 2020-11-08 07:26 | P.CONAN_ITS ---
[facility] Past Medical History Medical History Anxiety Arthritis Dysphagia GERD (gastroesophageal reflux disease) GI bleed History of anemia History of colitis Hx of breast cancer Hx of syncope Hypothyroid Weight loss, unintentional Surgical History Surgical History History of ankle surgery Social History Social History Household Members: None Housing: Apartment Do you presently have visiting nurse or other home services: Yes (MEDIA REPORTER) Alcohol intake: never Smoking Status: Never smoker Smoked in Last 30 Days: No Use of substances other than those prescribed or required for medical reasons: No Currently Displaying Signs/Symptoms of Drug Intoxication Withdrawal: No Have you been hit, kicked, punched, or otherwise hurt by someone within the past year? If so, by whom?: No Do you feel safe in your current relationship?: No Current Relationship Is there a partner from a previous relationship who is making you feel unsafe now?: No Are you made to feel afraid or neglected: No Taoism Healthcare Practices: Sikh Advance Directives: No Advance Directives Information Provided: No Do you have thoughts of harming others: None Do you have a plan to hurt others: No Plan Recently lost weight without trying: No service: No Current occupational status: retired Meds Allergies Allergy/AdvReac Type Severity Reaction Status Date / Time azithromycin [From ZITHROMAX] Allergy Severe GENERIC Verified 11/07/20 01:17 ONLY-SEVERE ABD PAIN, abdominal pain codeine [CODEINE] Allergy Intermediate NAUSEA & Verified 11/07/20 01:17 VOMITING,FAINTED, nausea, vomiting, syncope erythromycin base Allergy Intermediate HIVES, ABD Verified 11/07/20 01:17 [ERYTHROMYCIN BASE] PAIN promethazine [From PHENERGAN] Allergy Intermediate DIZZY / Verified 11/07/20 01:17 NAUSEATED amoxicillin [Prevpac] Allergy Unknown Unknown Verified 11/07/20 01:17 clarithromycin [Prevpac] Allergy Unknown Unknown Verified 11/07/20 01:17 Erythromycin Allergy Unknown hives, Uncoded 06/21/20 00:00 abdominal pain Home Medications Medication Instructions Recorded Confirmed Type Zyrtec 10 mg PO BEDTIME 11/07/20 11/07/20 History levothyroxine 1 tab PO DAILY 11/07/20 11/07/20 History Exam Exam Date and Time: November 08, 2020725 Height,Weight and Vital Signs: Height 5 ft 5 in Weight 55.338 kg Last Vital Signs Temp 97.3 F 11/08/20 07:02 Pulse 84 11/08/20 07:02 Resp 16 11/08/20 07:02 BP 163/66 H 11/08/20 07:02 Pulse Ox 98 11/08/20 07:02 Pertinent Lab Results Pertinent Lab Results: Laboratory Tests 11/05/20 11/05/20 11/05/20 18:46 18:46 20:34 WBC 15.8 H RBC 4.90 Hgb 13.6 Hct 41.7 MCV 85.1 MCH 27.8 MCHC 32.6 RDW 15.2 Plt Count 237 MPV 9.7 Immature Gran % (Auto) 0.4 Neut % (Auto) 86.6 H Lymph % (Auto) 7.1 L [place] % (Auto) 5.4 Eos % (Auto) 0.3 Baso % (Auto) 0.2 Lymph # (Auto) 1.1 L [place] # (Auto) 0.9 Eos # (Auto) 0.1 Baso # (Auto) 0.0 Abs Immat Gran (auto) 0.07 H Absolute Neuts (auto) 13.7 H Absolute Nucleated RBC 0.000 Nucleated RBC % (auto) 0.0 Sodium 138 Potassium 3.8 Chloride 101 Carbon Dioxide 28 Anion Gap 13 BUN 16 Creatinine 0.99 Estim Creat Clear Calc 37.6 Estimated GFR 54 Random Glucose 117 H Lactic Acid Calcium 9.6 Total Bilirubin 0.6 Direct Bilirubin 0.2 AST 21 ALT 16 Alkaline Phosphatase 95 C-Reactive Protein Total Protein 8.0 Albumin 4.3 Lipase 12 Urine Color STRAW Urine Appearance CLEAR Urine pH 7.0 Ur Specific [place] 1.010 Urine Protein NEG Urine Glucose (UA) NEG Urine Ketones NEG Urine Blood 2+ H Urine Nitrite NEG Ur Leukocyte Esterase NEG Urine RBC 15-29 H Urine WBC 0 Ur Squamous Epith Cells NONE Urine Bacteria NONE Stool Occult Blood COVID-19 (LYUBOV) COVID-19 Clin Com Blood Type Antibody Screen 11/05/20 11/05/20 11/06/20 20:36 20:38 00:04 WBC RBC Hgb Hct MCV MCH MCHC RDW Plt Count MPV Immature Gran % (Auto) Neut % (Auto) Lymph % (Auto) [place] % (Auto) Eos % (Auto) Baso % (Auto) Lymph # (Auto) [place] # (Auto) Eos # (Auto) Baso # (Auto) Abs Immat Gran (auto) Absolute Neuts (auto) Absolute Nucleated RBC Nucleated RBC % (auto) Sodium Potassium Chloride Carbon Dioxide Anion Gap BUN Creatinine Estim Creat Clear Calc Estimated GFR Random Glucose Lactic Acid Calcium Total Bilirubin Direct Bilirubin AST ALT Alkaline Phosphatase C-Reactive Protein Total Protein Albumin Lipase Urine Color Urine Appearance Urine pH Ur Specific [place] Urine Protein Urine Glucose (UA) Urine Ketones Urine Blood Urine Nitrite Ur Leukocyte Esterase Urine RBC Urine WBC Ur Squamous Epith Cells Urine Bacteria Stool Occult Blood POS COVID-19 (LYUBOV) Negative COVID-19 Clin Com See Note Blood Type O Positive Antibody Screen NEGATIVE 11/06/20 11/06/20 11/06/20 01:19 05:12 05:13 WBC 12.5 H RBC 4.71 Hgb 12.8 Hct 40.5 MCV 86.0 MCH 27.2 MCHC 31.6 RDW 15.2 Plt Count 239 MPV 9.9 Immature Gran % (Auto) 0.3 Neut % (Auto) 79.9 H Lymph % (Auto) 11.0 L [place] % (Auto) 8.1 Eos % (Auto) 0.5 Baso % (Auto) 0.2 Lymph # (Auto) 1.4 [place] # (Auto) 1.0 Eos # (Auto) 0.1 Baso # (Auto) 0.0 Abs Immat Gran (auto) 0.04 H Absolute Neuts (auto) 10.0 H Absolute Nucleated RBC 0.000 Nucleated RBC % (auto) 0.0 Sodium 141 Potassium 4.1 Chloride 104 Carbon Dioxide 25 Anion Gap 16 BUN 14 Creatinine 0.97 Estim Creat Clear Calc 42.2 Estimated GFR 55 Random Glucose 100 Lactic Acid 1.7 Calcium 9.0 D Total Bilirubin Direct Bilirubin AST ALT Alkaline Phosphatase C-Reactive Protein 7.74 H Total Protein Albumin Lipase Urine Color Urine Appearance Urine pH Ur Specific [place] Urine Protein Urine Glucose (UA) Urine Ketones Urine Blood Urine Nitrite Ur Leukocyte Esterase Urine RBC Urine WBC Ur Squamous Epith Cells Urine Bacteria Stool Occult Blood COVID-19 (LYUBOV) COVID-19 [employer] Com Blood Type Antibody Screen 11/07/20 11/07/20 11/08/20 05:13 05:13 05:20 WBC 8.9 6.9 RBC 4.35 4.66 Hgb 11.9 L 12.8 Hct 37.1 39.7 MCV 85.3 85.2 MCH 27.4 27.5 MCHC 32.1 32.2 RDW 15.3 15.1 Plt Count 214 231 MPV 10.1 10.0 Immature Gran % (Auto) 0.2 0.3 Neut % (Auto) 73.7 H 74.1 H Lymph % (Auto) 16.7 L 16.7 L [place] % (Auto) 8.1 7.6 Eos % (Auto) 1.1 0.9 Baso % (Auto) 0.2 0.4 Lymph # (Auto) 1.5 1.2 [place] # (Auto) 0.7 0.5 Eos # (Auto) 0.1 0.1 Baso # (Auto) 0.0 0.0 Abs Immat Gran (auto) 0.02 0.02 Absolute Neuts (auto) 6.6 5.1 Absolute Nucleated RBC 0.000 0.000 Nucleated RBC % (auto) 0.0 0.0 Sodium 142 Potassium 3.8 Chloride 107 Carbon Dioxide 27 Anion Gap 12 BUN 11 Creatinine 0.83 Estim Creat Clear Calc 49.4 Estimated GFR > 60 Random Glucose 85 Lactic Acid Calcium 8.7 Total Bilirubin Direct Bilirubin AST ALT Alkaline Phosphatase C-Reactive Protein Total Protein Albumin Lipase Urine Color Urine Appearance Urine pH Ur Specific [place] Urine Protein Urine Glucose (UA) Urine Ketones Urine Blood Urine Nitrite Ur Leukocyte Esterase Urine RBC Urine WBC Ur Squamous Epith Cells Urine Bacteria Stool Occult Blood COVID-19 (LYUBOV) COVID-19 Clin Com Blood Type Antibody Screen 11/08/20 05:20 WBC RBC Hgb Hct MCV MCH MCHC RDW Plt Count MPV Immature Gran % (Auto) Neut % (Auto) Lymph % (Auto) [place] % (Auto) Eos % (Auto) Baso % (Auto) Lymph # (Auto) [place] # (Auto) Eos # (Auto) Baso # (Auto) Abs Immat Gran (auto) Absolute Neuts (auto) Absolute Nucleated RBC Nucleated RBC % (auto) Sodium Potassium Chloride Carbon Dioxide Anion Gap BUN Creatinine Estim Creat Clear Calc Estimated GFR Random Glucose Lactic Acid Calcium Total Bilirubin Direct Bilirubin AST ALT Alkaline Phosphatase C-Reactive Protein 7.66 H Total Protein Albumin Lipase Urine Color Urine Appearance Urine pH Ur Specific [place] Urine Protein Urine Glucose (UA) Urine Ketones Urine Blood Urine Nitrite Ur Leukocyte Esterase Urine RBC Urine WBC Ur Squamous Epith Cells Urine Bacteria Stool Occult Blood COVID-19 (LYUBOV) COVID-19 Clin Com Blood Type Antibody Screen Airway Mallampati Class: I TM Dist: >3cm Neck ROM: Limited Loose/Missing/Broken Teeth: Yes, Upper and Lower (Edentulous) Heart: RRR Lungs: CTA Assessment and Plan Assessment Anesthesia Assessment: Anesthesia Plan Discussed and Chart Reviewed Final Anesthetic Review NPO: Yes ASA Class: III Final Preanesthetic Review: Meds/Allgs Chart Reviewed and Consent Obtained/Reviewed Patient Risk: Intermediate Procedure Risk: Low Anesthetic Plan Anesthetic Plan: MAC: Disposition: Standard PACU
[2020-11-08 08:22] VITALS: BP 114/50; PULSE 75; RESP 18; TEMP 36.8; O2SAT 100
[2020-11-08 08:37] VITALS: BP 138/76; PULSE 80; RESP 18; O2SAT 98
[2020-11-08 09:25] VITALS: BP 154/71; PULSE 72; RESP 18; TEMP 37.2; O2SAT 99
[2020-11-08] MEDS: Levothyroxine Sodium 75 MCG TABLET PO (10:58)
[2020-11-08 11:06] VITALS: BP 143/86; PULSE 84; RESP 18; TEMP 36.9; O2SAT 98
--- NOTE | 2020-11-08 13:21 | MHC.CM.PN ---
Patient will be discharged today back to [facility] at 4pm via BLS transport. Nurse and HCP Erich domínguez.
[2020-11-08 13:53] LABS: COVID-19 Test Negative (Negative)
--- NOTE | 2020-11-08 14:51 | P.DS_ITS ---
DS: Providers Provider Date of admission: 11/05/20 23:57 Primary care physician: No physician; will be referred to [facility] [place] [place] [facility] Consults: 11/06/20 08:19 Consult to Gastroenterology Routine Consulting Provider: [facility] Gastroenterology Services: Apryl Vail MD Reason for consultation: BRBPR/colitis DS: Diagnosis Discharge Diagnosis (1) Bright red blood per rectum: Status: Acute (2) Leukocytosis: Status: Acute (3) Colitis: Status: Acute (4) Abdominal pain: Status: Acute (5) Constipation: Status: Acute (6) Stercoral ulcer of rectum: Status: Acute DS: Medications Discharge Medications Home Medications: Home Medications Medication Instructions Recorded Confirmed Zyrtec 10 mg PO BEDTIME 11/07/20 11/07/20 levothyroxine 1 tab PO DAILY 11/07/20 11/07/20 Previous Rx's Medication Instructions Recorded alum-mag hydroxide-simeth [Mylanta 10 ml PO TID PRN #1 ea 09/03/20 Maximum Strength] alum-mag hydroxide-simeth [Mylanta 10 ml PO TID PRN #1 ea 09/03/20 Maximum Strength] acetaminophen [Athenol] 650 mg PO Q6H PRN #30 tab 09/27/20 sucralfate [Carafate] 10 ml PO BID 14 Days #280 ml 10/16/20 docusate sodium 100 mg PO BID #60 cap 11/08/20 levofloxacin 750 mg PO DAILY #4 tab 11/08/20 metronidazole 500 mg PO TID #12 tab 11/08/20 polyethylene glycol 3350 [Miralax] 17 g PO DAILY #510 g 11/08/20 DS: Summary Hospital Course Hospital Course: From admission history and physical by hospitalist Julián Weston, 11/05/20: This is a 80 yo F with pmhx of GERD who presents to the hospital complaints of Seen blood in her panties. Patient is also complaining of lower abdominal pain that is 10/10, nonradiating, constant, associated with constipation, this started yesterday, the pain has now completely resolved after receiving pain medication in the ED. She cannot describe the type of pain. she reports that although she is constipated today she did have diarrhea those slightly bloody yesterday. She had loss of bowel control which was new for her. She has not had any fever or chill, No urinary symptoms. No chest pain, shortness of breath, cough. No lower extremity edema. No recent use of antibiotics. [facility] experiencing a [facility]. while in the ED patient was going to be discharged but after a rectal exam had a large BM that was bloody. Her Stool occult blood positive. on arrival to the ED patient hemodynamically stable with no significant abnormal vitals Labs are significant for WBC count of 15.8, with no other abnormal labs. Stable hemoglobin. CT abdomen shows marked inflammatory changes present in the rectosigmoid, increased when compared to the prior study. There is now inflammatory changes in the pericolonic fat along with new juventino sacral soft tissue thickening. Suggestive of acute colitis. The patient was admitted to the [facility]. She was treated for possible infectious colitis with levofloxacin and metronidazole. Abdominal pain and hematochezia did not recur. Gastroenterology was consulted. She underwent a colonoscopy which demonstrated: Edema, erythema with ulcerations noted from 0-20 cms - multiple biopsies were obtained from the rectum, right and left colon. No polyps were detected Moderate diverticulosis seen in the sigmoid colon Moderate hemorrhoids on retroflexed exam. Ultimately the proctocolitis was attributed to stercoral ulcers from constipation. She was discharged back to the SNF on stool softeners (docusate and PEG 3350) and a high-fiber diet, but was also prescribed 4 more days of antibotic therapy. She has an appointment with Dr Martínez Saenz at [facility] Gastroenterology 11/22/20 to follow up the biopsy results from the colonoscopy. She will need flexible sigmoidoscopy in 6-12 months to follow up the proctocolitis. Time Spent with Patient Time attestation: Total time spent providing and/or coordinating discharge services: 45 Physical Exam Vital Signs: Vital Signs: Last Vital Signs Temp 98.5 F 11/08/20 11:06 Pulse 84 11/08/20 11:06 Resp 18 11/08/20 11:06 BP 143/86 H 11/08/20 11:06 Pulse Ox 98 11/08/20 11:06 Body Mass Index 20.2 Gen: in no acute distress HEENT: sclera anicteric, moist mucus membranes, edentulous Neck: supple Lungs: clear to auscultation bilaterally Heart: regular rate and rhythm, no murmurs Abd: soft, non-tender, non-distended Ext: no edema Skin: warm/well-perfused Neuro: alert and oriented x3, no focal findings Psych: appropriate affect DS: Data Data Completed and Pending Pending studies at discharge: Pending at discharge 11/08/20 08:02 Surgical [PTH] Routine Labs on day of discharge: Laboratory Results WBC 6.9 X10*3/uL (4.8-10.8) 11/08/20 05:20 RBC 4.66 X10*6/uL (4.20-5.50) 11/08/20 05:20 Hgb 12.8 g/dl (12.0-16.0) 11/08/20 05:20 Hct 39.7 % (37-47) 11/08/20 05:20 MCV 85.2 fL (80-98) 11/08/20 05:20 MCH 27.5 pg (27.0-33.0) 11/08/20 05:20 MCHC 32.2 g/dl (31.0-35.0) 11/08/20 05:20 RDW 15.1 % (11.0-16.0) 11/08/20 05:20 Plt Count 231 X10*3/uL (160-400) 11/08/20 05:20 MPV 10.0 fL (9.4-12.3) 11/08/20 05:20 Immature Gran % (Auto) 0.3 % (0.0-0.4) 11/08/20 05:20 Neut % (Auto) 74.1 % (45-73) H 11/08/20 05:20 Lymph % (Auto) 16.7 % (20-40) L 11/08/20 05:20 [place] % (Auto) 7.6 % (2-11) 11/08/20 05:20 Eos % (Auto) 0.9 % (0-4) 11/08/20 05:20 Baso % (Auto) 0.4 % (0-2) 11/08/20 05:20 Lymph # (Auto) 1.2 X10*3/uL (1.2-4.9) 11/08/20 05:20 [place] # (Auto) 0.5 X10*3/uL (0.1-1.2) 11/08/20 05:20 Eos # (Auto) 0.1 X10*3/uL (0.0-0.4) 11/08/20 05:20 Baso # (Auto) 0.0 X10*3/uL (0.0-0.2) 11/08/20 05:20 Abs Immat Gran (auto) 0.02 X10*3/uL (0.00-0.03) 11/08/20 05:20 Absolute Neuts (auto) 5.1 X10*3/uL (2.0-8.3) 11/08/20 05:20 Absolute Nucleated RBC 0.000 X10*3/uL (0.0-0.012) 11/08/20 05:20 Nucleated RBC % (auto) 0.0 /100WBC (0.0-0.2) 11/08/20 05:20 Sodium 142 mmol/L (135-145) 11/07/20 05:13 Potassium 3.8 mmol/l (3.3-5.1) 11/07/20 05:13 Chloride 107 mmol/L (96-108) 11/07/20 05:13 Carbon Dioxide 27 mmol/L (22-29) 11/07/20 05:13 Anion Gap 12 (-20) 11/07/20 05:13 BUN 11 mg/dL (9-16) 11/07/20 05:13 Creatinine 0.83 mg/dL (0.5-1.4) 11/07/20 05:13 Estim Creat Clear Calc 49.4 11/07/20 05:13 Estimated GFR > 60 11/07/20 05:13 Random Glucose 85 mg/dL (60-115) 11/07/20 05:13 Lactic Acid 1.7 mmol/L (0.5-2.0) 11/06/20 01:19 Calcium 8.7 mg/dL (8.4-10.2) 11/07/20 05:13 Total Bilirubin 0.6 mg/dL (0.0-1.0) 11/05/20 18:46 Direct Bilirubin 0.2 mg/dL (0.0-0.5) 11/05/20 18:46 AST 21 U/L (5-31) 11/05/20 18:46 ALT 16 U/L (0-31) 11/05/20 18:46 Alkaline Phosphatase 95 U/L (39-117) 11/05/20 18:46 C-Reactive Protein 7.66 mg/dL (< or = 0.50) H 11/08/20 05:20 Total Protein 8.0 g/dL (6.5-8.0) 11/05/20 18:46 Albumin 4.3 g/dL (3.5-5.0) 11/05/20 18:46 Lipase 12 U/L (8-78) 11/05/20 18:46 Urine Color STRAW 11/05/20 20:34 Urine Appearance CLEAR 11/05/20 20:34 Urine pH 7.0 (5.0-8.0) 11/05/20 20:34 Ur Specific [place] 1.010 (1.005-1.025) 11/05/20 20:34 Urine Protein NEG MG/DL (NEG-TRACE) 11/05/20 20:34 Urine Glucose (UA) NEG MG/DL (NEG) 11/05/20 20:34 Urine Ketones NEG MG/DL (NEG) 11/05/20 20:34 Urine Blood 2+ (NEG) H 11/05/20 20:34 Urine Nitrite NEG (NEG) 11/05/20 20:34 Ur Leukocyte Esterase NEG (NEG) 11/05/20 20:34 Urine RBC 15-29 /HPF (0) H 11/05/20 20:34 Urine WBC 0 /HPF (0-4) 11/05/20 20:34 Ur Squamous Epith Cells NONE /LPF 11/05/20 20:34 Urine Bacteria NONE /LPF 11/05/20 20:34 Stool Occult Blood POS (NEG) 11/05/20 20:36 COVID-19 (LYUBOV) Negative (Negative) 11/08/20 13:22 COVID-19 Clin Com See Note 11/08/20 13:22 Blood Type O Positive 11/05/20 20:38 Antibody Screen NEGATIVE 11/05/20 20:38 Impressions Abdomen/Pelvis CT 11/05/20 21:05 IMPRESSION: Marked inflammatory changes present in the rectosigmoid, increased when compared to the prior study. There is now inflammatory change in the pericolonic fat along with new presacral soft tissue thickening. Findings are consistent with acute colitis. Discharge Plan Discharge Anticipated Discharge Date/Time: 11/08/20 14:38 Patient Disposition: Xfer SNF Referrals: [facility] [Outside] Osorio Vaughn PA-C [Physician Dance Coach] - (needs PCP) Physician,Unknown [Primary Care Provider] - Discharge Medications: New levofloxacin 750 mg tablet 750 mg PO DAILY Qty: 4 RF: 0 metronidazole 500 mg tablet 500 mg PO TID Qty: 12 RF: 0 docusate sodium 100 mg capsule 100 mg PO BID Qty: 60 RF: 0 polyethylene glycol 3350 [Miralax] 17 gram/dose powder 17 g PO DAILY Qty: 510 RF: 0 Continued alum-mag hydroxide-simeth [Mylanta Maximum Strength] 400-400-40 mg/5 mL suspension 10 ml PO TID PRN (Reason: indigestion) Qty: 1 RF: 0 alum-mag hydroxide-simeth [Mylanta Maximum Strength] 400-400-40 mg/5 mL suspension 10 ml PO TID PRN (Reason: indigestion) Qty: 1 RF: 0 acetaminophen [Athenol] 325 mg tablet 650 mg PO Q6H PRN (Reason: fever or pain) Qty: 30 RF: 0 levothyroxine 75 mcg tablet 1 tab PO DAILY RF: 0 Zyrtec 10 MG 10 mg PO BEDTIME RF: 0 sucralfate [Carafate] 100 mg/mL suspension 10 ml PO BID 14 Days Qty: 280 RF: 0 Discharge Orders: Discharge Order (Routine); Ordered 11/08/20 Ordered By: Leonor Dykes Diet: other Activity on Discharge: As tolerated Patient Instructions: Constipation (ED) Visit Report Forms: Patient Portal Discharge page Care Plan Goals: relief of abdominal pain + constipation Health Concerns: colitis constipation GI bleeding Plan of Treatment: drink plenty of fluids eat a high-fiber diet start docusate 100 mg twice daily PLUS Miralax 17 gm once daily follow up with Dr Saenz in [facility] Gastroenterology on 11/22/20 for results of biopsies taken during colonoscopy take antibiotics for 4 days: levofloxacin 750 mg daily plus metronidazole 500 mg 3x a day return to ED for worsening abdominal pain or GI bleeding
== END 2020-11-08 16:35 | disposition skilled nursing facility (03) | DRG 393 ==
LOC: HO.ED 18:54 → HO.IMC 11-06 01:49
PROVIDERS: Emergency Medicine Emergency Medical Services; Internal Medicine Gastroenterology; Admitting Provider Internal Medicine; Emergency Provider Emergency Medicine; Visit Provider Family Medicine
PROC: 0DJD8ZZ Inspection of Lower Intestinal Tract, Via Natural or Artificial Opening Endoscopic (ICD-10-PCS; CPT 45378; principal; 2020-11-08 12:00)
DX: K62.6 Ulcer of anus and rectum (principal); K57.31 Diverticulosis of large intestine without perforation or abscess with bleeding; K52.9 Noninfective gastroenteritis and colitis, unspecified; K64.8 Other hemorrhoids; K21.9 Gastro-esophageal reflux disease without esophagitis; E03.9 Hypothyroidism, unspecified; K59.00 Constipation, unspecified; D72.829 Elevated white blood cell count, unspecified; Z20.828 Contact with and (suspected) exposure to other viral communicable diseases; Z88.0 Allergy status to penicillin; Z88.5 Allergy status to narcotic agent; Z79.890 Hormone replacement therapy; Z79.899 Other long term (current) drug therapy
CPT/HCPCS: 36415; 74177; 80048; 80076; 81001; 82272; 83605; 83690; 85025; 86140; 86850; 86900; 86901; 87040; 87635; 88305; 88342; 93005; 96365; 96375; 97162; 99285; J1650; J1956; J2270; J2405; Q9967

== ENCOUNTER → 2020-11-28 12:37 | Outpatient (BNVA) | payer MEDICARE, SELFPAY | PROVIDERS: Visit Provider Internal Medicine Gastroenterology | DX: Z12.11 Encounter for screening for malignant neoplasm of colon (principal) | CPT/HCPCS: 99212 ==

== ENCOUNTER 2021-03-03 11:42 | Emergency (ER) | payer MEDICARE, SELFPAY ==
[2021-03-03 11:52] VITALS: BP 130/60; PULSE 74; O2SAT 97
[2021-03-03 11:55] VITALS: BP 138/62; PULSE 69; RESP 16; TEMP 37.4; O2SAT 96; BMI 23.8
--- NOTE | 2021-03-03 13:45 | ED_ITS ---
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 Denies any fever chest pain shortness of breath any other systemic complaint MD Complaint: generalized weakness Onset (ago): day(s) Duration: constant Location: generalized Related Data Home Medications Medication Instructions Recorded Confirmed Zyrtec 10 mg PO BEDTIME 11/07/20 11/07/20 levothyroxine 1 tab PO DAILY 11/07/20 11/07/20 cholecalciferol (vitamin D3) 25 25 mcg PO DAILY 11/28/20 mcg (1,000 unit) capsule ondansetron HCl 4 mg tablet 4 mg PO Q8H 11/28/20 pantoprazole 40 mg tablet,delayed 40 mg PO DAILY 11/28/20 release sennosides 8.6 mg tablet 8.6 mg PO BEDTIME 11/28/20 Previous Rx's Medication Instructions Recorded alum-mag hydroxide-simeth [Mylanta 10 ml PO TID PRN #1 ea 09/03/20 Maximum Strength] alum-mag hydroxide-simeth [Mylanta 10 ml PO TID PRN #1 ea 09/03/20 Maximum Strength] acetaminophen [Athenol] 650 mg PO Q6H PRN #30 tab 09/27/20 sucralfate [Carafate] 10 ml PO BID 14 Days #280 ml 10/16/20 docusate sodium 100 mg PO BID #60 cap 11/08/20 levofloxacin 750 mg PO DAILY #4 tab 11/08/20 metronidazole 500 mg PO TID #12 tab 11/08/20 polyethylene glycol 3350 [Miralax] 17 g PO DAILY #510 g 11/08/20 Allergies Allergy/AdvReac Type Severity Reaction Status Date / Time azithromycin [From ZITHROMAX] Allergy Severe GENERIC Verified 11/07/20 01:17 ONLY-SEVERE ABD PAIN, abdominal pain codeine [CODEINE] Allergy Intermediate NAUSEA & Verified 11/07/20 01:17 VOMITING,FAINTED, nausea, vomiting, syncope erythromycin base Allergy Intermediate HIVES, ABD Verified 11/07/20 01:17 [ERYTHROMYCIN BASE] PAIN promethazine [From PHENERGAN] Allergy Intermediate DIZZY / Verified 11/07/20 01:17 NAUSEATED amoxicillin [Prevpac] Allergy Unknown Unknown Verified 11/07/20 01:17 clarithromycin [Prevpac] Allergy Unknown Unknown Verified 11/07/20 01:17 Erythromycin Allergy Unknown hives, Uncoded 06/21/20 00:00 abdominal pain Review of Systems Review of Systems: Yes all other systems are reviewed and are negative Cardiovascular: Cardiovascular: Denies chest pain, Denies chest pain at rest and Denies chest pain with activity Respiratory: Respiratory: Reports no additional respiratory complaints Gastrointestinal: Gastrointestinal: Denies abdominal pain Musculoskeletal: Musculoskeletal: Reports no additional musculoskeletal complaints PMFSH Past Medical History Medical History Anxiety Arthritis Bright red blood per rectum Constipation Dysphagia GERD (gastroesophageal reflux disease) GI bleed History of anemia History of colitis Hx of breast cancer Hx of syncope Hypothyroid Weight loss, unintentional Surgical History History of ankle surgery Family History Family History Father No problems noted. Mother Hx of colon cancer, stage IV Social History Social History (Updated 11/28/20 @ 12:47 by Violet Martins [facility]) Household Members: None Housing: Apartment Alcohol intake: never Smoking Status: Never smoker Advance Directives: Yes Advance Directives on File: Yes Advance Directives Date on File: 10/20/20 service: No Current occupational status: retired Physical Exam Vital Signs: Vital Signs: Last Vital Signs Temp 99.3 F 03/03/21 11:55 Pulse 69 03/03/21 11:55 Resp 16 03/03/21 11:55 BP 138/62 03/03/21 11:55 Pulse Ox 96 03/03/21 11:55 Body Mass Index 23.8 Const: Other: She looks well she is not in distress she is sitting comfortable in the chair HENMT: Other: Normal head inspection Eyes: Other: No jaundice scleral white Neck: Other: Neck is supple full range of motion Resp: Other: Lungs are clear no wheezing no rales Cardio: Other: Regular rate and rhythm a GI: Other: Abdomen is soft not tender no guarding Skin: Other: Skin good turgor Neuro: Other: She is awake alert oriented x3 no neuro deficit MDM - Weakness MDM Narrative Medical decision making narrative: I do not think we need to do lab work on this patient she has stable vital signs she is afebrile she is not tachycardic. I will discharge the patient home a with reassurance. Will do another set of vital signs before discharge. Discharge Plan Discharge Prescriptions: No Action alum-mag hydroxide-simeth [Mylanta Maximum Strength] 400-400-40 mg/5 mL suspension 10 ml PO TID PRN (Reason: indigestion) Qty: 1 RF: 0 alum-mag hydroxide-simeth [Mylanta Maximum Strength] 400-400-40 mg/5 mL suspension 10 ml PO TID PRN (Reason: indigestion) Qty: 1 RF: 0 acetaminophen [Athenol] 325 mg tablet 650 mg PO Q6H PRN (Reason: fever or pain) Qty: 30 RF: 0 levothyroxine 75 mcg tablet 1 tab PO DAILY RF: 0 Zyrtec 10 MG 10 mg PO BEDTIME RF: 0 levofloxacin 750 mg tablet 750 mg PO DAILY Qty: 4 RF: 0 metronidazole 500 mg tablet 500 mg PO TID Qty: 12 RF: 0 docusate sodium 100 mg capsule 100 mg PO BID Qty: 60 RF: 0 polyethylene glycol 3350 [Miralax] 17 gram/dose powder 17 g PO DAILY Qty: 510 RF: 0 sucralfate [Carafate] 100 mg/mL suspension 10 ml PO BID 14 Days Qty: 280 RF: 0
[2021-03-03 13:53] VITALS: BP 125/66; PULSE 76; RESP 16; TEMP 36.6; O2SAT 98
== END 2021-03-03 14:05 | disposition home or self-care (01) ==
PROVIDERS: Emergency Provider Emergency Medicine; PCP Internal Medicine
DX: R53.1 Weakness (principal); F41.9 Anxiety disorder, unspecified
CPT/HCPCS: 99282; 99283

== ENCOUNTER 2021-03-21 14:39 | Outpatient (REF) | payer MEDICARE, SELFPAY ==
--- NOTE | ~2021-03-21 | CT_ITS ---
EXAMINATION: CT CHEST WITHOUT CONTRAST CLINICAL INFORMATION: Pulmonary nodules. Breast cancer. COMPARISON: Multiple priors, most recent CT chest dated 09/05/2018, most recent chest radiograph dated 10/20/2020, and most recent CT abdomen/pelvis dated 11/05/2020. TECHNIQUE: Multidetector volumetric CT imaging of the chest was done. Axial MIP volume rendering provided. Sagittal and coronal reformatted images were obtained. This CT examination was performed using dose optimization techniques as appropriate, variously including the following: *Automated exposure control *Adjustment of mA and/or kV according to patient size (this includes techniques or standardized protocols for targeted exams where dose is matched to indication/reason for exam; i.e. 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 LUNGS: Biapical nodular pleural thickening is redemonstrated. Subpleural thickening and nodularity with associated cystic airspace disease redemonstrated within the apex of the left upper lobe, increased when compared to the prior examination. Associated reticulonodular densities extending more inferiorly have increased in prominence when compared to the prior examination. Bronchiectasis with irregular nodular densities along the anterior aspect of the lingula, slightly decreased in prominence when compared to the prior examination. The central airways are patent. MEDIASTINUM: No cardiomegaly. No pericardial effusion. No thoracic aortic dilatation. Scattered atherosclerotic calcifications. No significant superior mediastinal or hilar lymphadenopathy. PLEURA: No pleural effusion or pneumothorax. AXILLA: No lymphadenopathy. UPPER ABDOMEN: Status post cholecystectomy. Otherwise, the visualized upper abdominal structures are unremarkable. OSSEOUS STRUCTURES: Unremarkable. CT/CT chest wo con IMPRESSION: Biapical nodular pleural thickening is redemonstrated, slightly more prominent when compared to the prior CT. Subpleural thickening and nodularity with associated cystic airspace disease and irregular reticulonodular densities again noted within the apex of the left lower lobe, increased in prominence when compared to the prior examination. Bronchiectasis and associated irregular/nodular densities along the posterior aspect of the left upper lobe have slightly decreased in prominence when compared to the prior CT. Given waxing and waning appearance of the lung disease, this may be related to an acute on chronic infectious or inflammatory process. No significant lymphadenopathy.
== END 2021-03-21 14:40 | disposition home or self-care (01) ==
LOC: HO.CT 14:39
PROVIDERS: PCP Internal Medicine; Visit Provider Internal Medicine
DX: R91.8 Other nonspecific abnormal finding of lung field (principal)
CPT/HCPCS: 71250

== ENCOUNTER 2021-06-16 10:14 | Emergency (ER) | payer MEDICARE, SELFPAY ==
--- NOTE | ~2021-06-16 | CT_ITS ---
EXAMINATION: CT HEAD WITHOUT CONTRAST CLINICAL INFORMATION: Right-sided headache COMPARISON: None TECHNIQUE: Contiguous axial imaging was performed from the skull base to vertex without intravenous administration of contrast. This CT examination was performed using dose optimization techniques as appropriate, variously including the following: *Automated exposure control *Adjustment of mA and/or kV according to patient size (this includes techniques or standardized protocols for targeted exams where dose is matched to indication/reason for exam; i.e. extremities or head) *Use of iterative reconstruction technique DLP: 567 mGy-cm FINDINGS: There is no acute intra-axial, extra-axial bleed, masses or midline shift. There is moderate size hypodensity lateral temporal lobe lateral to temporal horn lateral ventricle. No additional areas of hypodensity seen. The lateral ventricles are symmetrical and mildly prominent. No midline shift seen. The osseous structures and soft tissues are normal. The mastoid air cells and visualized portions of the paranasal sinuses are well aerated. CT/CT head/brain wo con IMPRESSION: No acute bleed. There is a moderate-sized hypodensity left lateral temporal lobe, ? Edema versus subacute ischemia. Recommend contrast enhanced CT or MRI with and without contrast.
--- NOTE | 2021-06-16 10:19 | ED.GENADULT ---
HPI - General Adult General Chief complaint: Headache Stated complaint: RIGHT SIDED HEADACHE Time Seen by Provider: 06/16/21 10:17 Source: patient Mode of arrival: ambulatory Limitations: no limitations History of Present Illness HPI narrative: Patient presents to ED for right-sided headache and tingling sensation all over body. Patient states she woke up with a headache with tingling sensation all over body. Patient denies any recent head trauma. Patient denies any blurry vision, slurred speech, loss of vision, facial droop, weakness, dizziness, nausea, vomiting, chest pain,or any paralysis of extremities. Patient states no fever, chills, or neck pain. Patient denies any eye pain. Related Data Allergies Allergy/AdvReac Type Severity Reaction Status Date / Time No Known Allergies Allergy Verified 06/16/21 10:39 Review of Systems Review of Systems: Yes all other systems are reviewed and are negative Constitutional: Constitutional: Reports as per HPI, Reports no additional constitutional complaints and Reports headache(s) (Right-sided) Eyes: Eyes: Reports as per HPI and Reports no additional eye complaints ENT: Reports system reviewed and no additional complaints, except as documented, Reports as per HPI and Reports headache(s) (Right-sided) Cardiovascular: Cardiovascular: Reports as per HPI and Reports no additional cardiovascular complaints Respiratory: Respiratory: Reports as per HPI and Reports no additional respiratory complaints Gastrointestinal: Gastrointestinal: Reports as per HPI and Reports no additional gastrointestinal complaints Genitourinary: Genitourinary: Reports no additional female genitourinary complaints and Reports as per HPI Musculoskeletal: Musculoskeletal: Reports no additional musculoskeletal complaints and Reports as per HPI Neurologic: Reports system reviewed and no additional complaints, except as documented, Reports as per HPI, Reports Abnormal speech present and Reports headache(s) (Right-sided) [facility] Social History Social History Advance Directives: No Advance Directives Information Provided: No Physical Exam Vital Signs: Vital Signs: Body Mass Index 21.2 Const: General: cooperative, healthy appearing, comfortable, no acute distress, well developed, alert and awake; No Physically active Orientation/consciousness: patient oriented x3 HENMT: Head: Yes normal to inspection, Yes No palpable skull fracture present, Yes normocephalic, Yes atraumatic, No abrasion, No Acrocyanosis present, No Mims's sign, No contusion, No cranial bruits, No hematoma, No laceration, No occipital foramen tenderness, No palpable skull fracture, No raccoon eyes, No scalp lesion, No scalp tenderness, Yes Temporal artery tenderness present (Right mild) and No periorbital ecchymosis Eyes: General: appearance normal, both eyes and all related structures Neck: Neck: Yes normal visual inspection, Yes full ROM, Yes no lymphadenopathy, Yes no meningeal signs, Yes trachea midline, Yes supple and No tender Chest: Chest palpation & inspection: normal inspection of the chest and normal palpation of entire chest wall Resp: Effort & Inspection: normal respiratory effort and able to speak in complete sentences Auscultation: clear to auscultation bilaterally Cardio: Jugular venous distension: no JVD Heart sounds: S1 normal heart sound present and S2 normal heart sound present GI: Inspection: Yes normal to inspection and No abdominal wall ecchymosis Palpation (GI): Soft to palpation, not firm, nontender, no guarding and not rigid Back/Spine/Pelvis: Back: no CVA tenderness, No CVA tenderness and No back tenderness Skin: General skin exam: no rashes or lesions noted and elasticity normal Neuro: Other: Negative slurred speech. Negative pronator drift. Negative facial droop. All extremities equal strength 5+. [id number] or rapid head movement intact. Negative Romberg General: oriented to time, patient oriented x3, gait normal, moves all extremities, no meningeal signs, CN's II-XI intact bilaterally and deep tendon reflexes 2+ bilaterally Cranial nerves: Yes CN's II-XII intact bilaterally and Yes Facial sensation intact/muscles of mastication intact Cognition (Neuro): normal cognition Speech: Abnormal speech present Motor exam (neuro): 5/5 motor strength present throughout Extrem: General: Yes normal to inspection and Yes full ROM Psych: Appearance: grossly normal, well kempt and not disheveled Course Course Course Narrative: Patient having medical evaluation. Negative for any neuro deficits Reevaluation(s) Reevaluation #1: Patient walked out from the ER during ED visit without notifying staff. Patient eloped. Time: 14:02 Medical Decision Making [facility] Narrative Medical decision making narrative: Headache Lab Data Result diagrams: 06/16/21 11:37 06/16/21 11:37 Labs: Lab Results 06/16/21 06/16/21 06/16/21 Range/Units 11:37 11:37 11:37 WBC 6.9 (4.8-10.8) X10*3/uL RBC 4.61 (4.20-5.50) X10*6/uL Hgb 12.6 (12.0-16.0) g/dl Hct 38.8 (37-47) % MCV 84.2 (80-98) fL MCH 27.3 (27.0-33.0) pg MCHC 32.5 (31.0-35.0) g/dl RDW 15.9 (11.0-16.0) % Plt Count 224 (160-400) X10*3/uL MPV 9.1 L (9.4-12.3) fL Immature Gran % (Auto) 0.4 (0.0-0.4) % Neut % (Auto) 58.6 (45-73) % Lymph % (Auto) 29.1 (20-40) % [place] % (Auto) 9.9 (2-11) % Eos % (Auto) 1.6 (0-4) % Baso % (Auto) 0.4 (0-2) % Lymph # (Auto) 2.0 (1.2-4.9) X10*3/uL [place] # (Auto) 0.7 (0.1-1.2) X10*3/uL Eos # (Auto) 0.1 (0.0-0.4) X10*3/uL Baso # (Auto) 0.0 (0.0-0.2) X10*3/uL Abs Immat Gran (auto) 0.03 (0.00-0.03) X10*3/uL Absolute Neuts (auto) 4.1 (2.0-8.3) X10*3/uL Absolute Nucleated RBC 0.000 (0.0-0.012) X10*3/uL Nucleated RBC % (auto) 0.0 (0.0-0.2) /100WBC ESR 26 H (0-20) MM/HR PT (9.9-13.0) SEC INR (0.9-1.1) APTT (24.1-38.0) SEC Sodium 142 (135-145) mmol/L Potassium 3.9 (3.3-5.1) mmol/L Chloride 108 (96-108) mmol/L Carbon Dioxide 27 (22-29) mmol/L Anion Gap 11 L (12-20) BUN 16 (9-16) mg/dL Creatinine 0.94 (0.5-1.4) mg/dL Estim Creat Clear Calc 39.4 Estimated GFR 57 Random Glucose 82 (60-115) mg/dL Calcium 9.7 (8.4-10.2) mg/dL Magnesium 2.1 (1.6-2.6) mg/dL Total Bilirubin 0.4 (0.0-1.0) mg/dL AST 19 (5-31) U/L ALT 11 (0-31) U/L Alkaline Phosphatase 86 (39-117) U/L Total Creatine Kinase 113 (26-140) U/L Troponin I High Sens (<3.5-17.0) ng/L Total Protein 7.8 (6.5-8.0) g/dL Albumin 4.0 (3.5-5.0) g/dL 06/16/21 06/16/21 Range/Units 11:37 11:37 WBC (4.8-10.8) X10*3/uL RBC (4.20-5.50) X10*6/uL Hgb (12.0-16.0) g/dl Hct (37-47) % MCV (80-98) fL MCH (27.0-33.0) pg MCHC (31.0-35.0) g/dl RDW (11.0-16.0) % Plt Count (160-400) X10*3/uL MPV (9.4-12.3) fL Immature Gran % (Auto) (0.0-0.4) % Neut % (Auto) (45-73) % Lymph % (Auto) (20-40) % [place] % (Auto) (2-11) % Eos % (Auto) (0-4) % Baso % (Auto) (0-2) % Lymph # (Auto) (1.2-4.9) X10*3/uL [place] # (Auto) (0.1-1.2) X10*3/uL Eos # (Auto) (0.0-0.4) X10*3/uL Baso # (Auto) (0.0-0.2) X10*3/uL Abs Immat Gran (auto) (0.00-0.03) X10*3/uL Absolute Neuts (auto) (2.0-8.3) X10*3/uL Absolute Nucleated RBC (0.0-0.012) X10*3/uL Nucleated RBC % (auto) (0.0-0.2) /100WBC ESR (0-20) MM/HR PT 11.5 (9.9-13.0) SEC INR 1.0 (0.9-1.1) APTT 32.7 (24.1-38.0) SEC Sodium (135-145) mmol/L Potassium (3.3-5.1) mmol/L Chloride (96-108) mmol/L Carbon Dioxide (22-29) mmol/L Anion Gap (12-20) BUN (9-16) mg/dL Creatinine (0.5-1.4) mg/dL Estim Creat Clear Calc Estimated GFR Random Glucose (60-115) mg/dL Calcium (8.4-10.2) mg/dL Magnesium (1.6-2.6) mg/dL Total Bilirubin (0.0-1.0) mg/dL AST (5-31) U/L ALT (0-31) U/L Alkaline Phosphatase (39-117) U/L Total Creatine Kinase (26-140) U/L Troponin I High Sens < 3.5 (<3.5-17.0) ng/L Total Protein (6.5-8.0) g/dL Albumin (3.5-5.0) g/dL Discharge Plan Discharge Clinical Impression: Headache Patient Disposition: Elopement Interventions: ED Discharge Assessment Last Done: 06/16/21 13:35 Discharge Date/Time: 06/16/21 13:36
--- NOTE | 2021-06-16 10:40 | ECG_ITS ---
Test Reason : HEADACHE Blood Pressure : / mmHG Vent. Rate : 068 BPM Atrial Rate : 068 BPM P-R Int : 198 ms QRS Dur : 084 ms QT Int : 434 ms P-R-T Axes : 076 009 055 degrees QTc Int : 461 ms Normal sinus rhythm with sinus arrhythmia Minimal voltage criteria for LVH, may be normal variant Septal infarct , age undetermined Abnormal ECG No previous ECGs available Referred By: Joselo Magdaleno Electronically Signed By:Ovidio Roy
[2021-06-16 11:12] VITALS: BMI 21.2
[2021-06-16 11:45] LABS: MANUAL DIFF FLAG NO
[2021-06-16 11:49] LABS: Basophils Percent Auto 0.4 % (0-2); Eosinophils Absolute Auto 0.1 X10*3/uL (0.0-0.4); Eosinophils Percent Auto 1.6 % (0-4); Hematocrit 38.8 % (37-47); Hemoglobin 12.6 g/dl (12.0-16.0); Imm Gran Abs Auto 0.03 X10*3/uL (0.00-0.03); Imm Gran Pct Auto 0.4 % (0.0-0.4); Lymphocytes Percent Auto 29.1 % (20-40); Mean Corpuscular HGB Conc 32.5 g/dl (31.0-35.0); Mean Corpuscular Hemoglobin 27.3 pg (27.0-33.0); Mean Corpuscular Volume 84.2 fL (80-98); Mean Platelet Volume 9.1 fL (9.4-12.3); Monocytes Absolute Auto 0.7 X10*3/uL (0.1-1.2); Monocytes Percent Auto 9.9 % (2-11); Neutrophils Absolute Auto 4.1 X10*3/uL (2.0-8.3); Neutrophils Percent Auto 58.6 % (45-73); Platelet Count 224 X10*3/uL (160-400); Red Blood Count 4.61 X10*6/uL (4.20-5.50); Red Cell Distribution Width 15.9 % (11.0-16.0); White Blood Count 6.9 X10*3/uL (4.8-10.8)
--- NOTE | 2021-06-16 11:53 | PC.NURSE ---
Pt declined medications- i dont need them , its not that bad . Primary rn and provider aware
[2021-06-16 11:55] LABS: Prothrombin Time 11.5 SEC (9.9-13.0)
[2021-06-16 11:57] LABS: Partial Thromboplastin Time 32.7 SEC (24.1-38.0)
[2021-06-16 12:12] LABS: Alanine Aminotransferase 11 U/L (0-31); Alkaline Phosphatase 86 U/L (39-117); Anion Gap 11 (12-20); Aspartate Amino Transferase 19 U/L (5-31); Bilirubin Total 0.4 mg/dL (0.0-1.0); Blood Urea Nitrogen 16 mg/dL (9-16); Calcium 9.7 mg/dL (8.4-10.2); Carbon Dioxide 27 mmol/L (22-29); Chloride 108 mmol/L (96-108); Creatinine Clr Calc Pharmacy 39.4; Estimated Glomerular Filt Rate 57; Glucose Random 82 mg/dL (60-115); Magnesium 2.1 mg/dL (1.6-2.6); Potassium 3.9 mmol/L (3.3-5.1); Sodium 142 mmol/L (135-145); Total Protein 7.8 g/dL (6.5-8.0)
[2021-06-16 12:20] LABS: Troponin-I High Sensitivity < 3.5 ng/L (<3.5-17.0)
[2021-06-16 12:30] LABS: Erythrocyte Sedimentation Rate 26 MM/HR (0-20)
== END 2021-06-16 13:36 | disposition left against medical advice (07) ==
PROVIDERS: Physician Assistant; Emergency Provider Emergency Medicine
DX: R51.9 Headache, unspecified (principal)
CPT/HCPCS: 36415; 70450; 80053; 82550; 83735; 84484; 85025; 85610; 85652; 85730; 93005; 96360; 99284

== ENCOUNTER 2021-07-09 15:18 | Emergency (ER) | payer MEDICARE, SELFPAY ==
--- NOTE | ~2021-07-09 | CT_ITS ---
EXAMINATION: CT ABDOMEN AND PELVIS WITH CONTRAST CLINICAL INFORMATION: Lower abdominal pain, question appendicitis, question colitis COMPARISON: 11/05/2020 TECHNIQUE: Multidetector volumetric images were obtained from the superior aspect of the liver through the pubic symphysis following administration 85 mL of Omnipaque 350 intravenous contrast. Sagittal and coronal reformatted images were obtained on the technologist's workstation. Oral contrast: No This CT examination was performed using dose optimization techniques as appropriate, variously including the following: *Automated exposure control *Adjustment of mA and/or kV according to patient size (this includes techniques or standardized protocols for targeted exams where dose is matched to indication/reason for exam; i.e. extremities or head) *Use of iterative reconstruction technique DLP: 480 mGy-cm FINDINGS: LUNG BASES: The visualized lung bases are unremarkable. LIVER, GALLBLADDER, AND BILIARY TREE: Limitation from motion. No obvious finding status post cholecystectomy PANCREAS: Unremarkable. SPLEEN: Small defect in the spleen of uncertain etiology. Measures approximately a centimeter ADRENAL GLANDS: Unremarkable. KIDNEYS AND URETERS: Again limitation from motion. No hydronephrosis BLADDER: Unremarkable. GASTROINTESTINAL TRACT: Again limited evaluation from motion. No obstruction. No free fluid. The appendix is within normal limits ABDOMINAL WALL: No significant hernia is appreciated. LYMPH NODES: Normal. VASCULAR: Unremarkable. PELVIC VISCERA: Prominent uterus for age. Similar to previous OSSEOUS STRUCTURES: Unremarkable. CT/CT abdomen pelvis w con IMPRESSION: Bowel pattern is within normal limits. No evidence of colitis or appendicitis. Motion degrades the study. Small area of low attenuation in the spleen of uncertain etiology
[2021-07-09 15:21] VITALS: RESP 18; BMI 21.6
--- NOTE | 2021-07-09 15:29 | ED_ITS ---
HPI - General Adult General Chief complaint: General Medical Stated complaint: not feeling well Time Seen by Provider: 07/09/21 15:25 Source: patient Mode of arrival: ambulatory Limitations: no limitations History of Present Illness HPI narrative: Patient presents to the ED for lower abdominal pain after drinking amari Felisha today. Patient states 1 episode of diarrhea. Patient denies any blood in stool. Patient denies any black stool. Patient denies any upper abdominal pain, fever, chills, chest pain, or shortness of breath Related Data Home Medications Medication Instructions Recorded Confirmed levothyroxine 75 mcg tablet 1 tab PO DAILY 11/07/20 04/07/21 cholecalciferol (vitamin D3) 25 25 mcg PO DAILY 11/28/20 04/07/21 mcg (1,000 unit) capsule pantoprazole 40 mg tablet,delayed 40 mg PO DAILY 11/28/20 04/07/21 release Previous Rx's Medication Instructions Recorded aluminum-mag hydroxide-simethicone 10 ml PO TID PRN #1 ea 09/03/20 400 mg-400 mg-40 mg/5 mL oral susp (Mylanta Maximum Strength) acetaminophen 325 mg tablet 650 mg PO Q6H PRN #30 tab 09/27/20 (Athenol) sucralfate 100 mg/mL oral 10 ml PO BID 14 Days #280 ml 10/16/20 suspension (Carafate) docusate sodium 100 mg capsule 100 mg PO BID #60 cap 11/08/20 Allergies Allergy/AdvReac Type Severity Reaction Status Date / Time azithromycin [From ZITHROMAX] Allergy Severe GENERIC Verified 06/19/21 08:10 ONLY-SEVERE ABD PAIN, abdominal pain codeine [CODEINE] Allergy Intermediate NAUSEA & Verified 06/19/21 08:10 VOMITING,FAINTED, nausea, vomiting, syncope erythromycin base Allergy Intermediate HIVES, ABD Verified 06/19/21 08:10 [ERYTHROMYCIN BASE] PAIN promethazine [From PHENERGAN] Allergy Intermediate DIZZY / Verified 06/19/21 08:10 NAUSEATED amoxicillin [Prevpac] Allergy Unknown Unknown Verified 06/19/21 08:10 clarithromycin [Prevpac] Allergy Unknown Unknown Verified 06/19/21 08:10 Codeine Sulfate Allergy Unknown Uncoded 06/19/21 08:10 Erythromycin Allergy Unknown hives, Uncoded 06/19/21 08:10 abdominal pain Review of Systems Review of Systems: Yes all other systems are reviewed and are negative Constitutional: Constitutional: Reports as per HPI and Reports no additional constitutional complaints Eyes: Eyes: Reports as per HPI and Reports no additional eye complaints ENT: Reports system reviewed and no additional complaints, except as documented Cardiovascular: Cardiovascular: Reports as per HPI and Reports no additional cardiovascular complaints Respiratory: Respiratory: Reports as per HPI and Reports no additional respiratory complaints Gastrointestinal: Gastrointestinal: Reports as per HPI, Reports no additional gastrointestinal complaints, Reports abdominal pain and Reports diarrhea Genitourinary: Genitourinary: Reports no additional female genitourinary complaints and Reports as per HPI Musculoskeletal: Musculoskeletal: Reports no additional musculoskeletal complaints and Reports as per HPI Neurologic: Reports system reviewed and no additional complaints, except as documented and Reports as per HPI Psychiatric: Psychiatric: Reports no additional psychiatric complaints and Reports as per HPI PMFSH Past Medical History Medical History Anxiety Arthritis Bright red blood per rectum Constipation Dysphagia GERD (gastroesophageal reflux disease) GI bleed History of anemia History of colitis Hx of breast cancer Hx of syncope Hypothyroid Weight loss, unintentional Surgical History History of ankle surgery Family History Family History Father No problems noted. Mother Hx of colon cancer, stage IV Social History Social History (System 06/19/21 @ 08:10 by Rachel Palomino) Household Members: None Housing: Apartment Do you presently have visiting nurse or other home services: Yes ([employer]) Alcohol intake: never Advance Directives: Yes Advance Directives on File: Yes Advance Directives Date on File: 10/20/20 service: No Current occupational status: retired Physical Exam Vital Signs: Vital Signs: Last Vital Signs Temp 98 F 07/09/21 15:51 Pulse 76 07/09/21 15:51 Resp 16 07/09/21 15:51 BP 140/73 H 07/09/21 15:51 Pulse Ox 98 07/09/21 15:51 Body Mass Index 21.6 Const: General: cooperative, healthy appearing, comfortable, no acute distress, well developed, alert and awake Orientation/consciousness: patient oriented x3 HENMT: Head: Yes normal to inspection, Yes No palpable skull fracture present, Yes normocephalic and Yes atraumatic Eyes: General: appearance normal, both eyes and all related structures Neck: Neck: Yes normal visual inspection, Yes full ROM, Yes no lym phadenopathy, Yes no meningeal signs, Yes trachea midline, Yes supple and No tender Chest: Chest palpation & inspection: normal inspection of the chest and normal palpation of entire chest wall Resp: Effort & Inspection: normal respiratory effort and able to speak in complete sentences Auscultation: clear to auscultation bilaterally Cardio: Jugular venous distension: no JVD Heart sounds: S1 normal heart sound present and S2 normal heart sound present GI: Inspection: Yes normal to inspection and No abdominal wall ecchymosis Palpation (GI): Soft to palpation, not firm, Tenderness to palpation present (GI) in the LLQ and in the RLQ, no guarding and not rigid : General: No CVA tenderness and Yes no CVA tenderness Back/Spine/Pelvis: Back: no CVA tenderness, No CVA tenderness and No back tenderness Skin: General skin exam: no rashes or lesions noted and elasticity normal Neuro: General: patient oriented x3, gait normal, no meningeal signs and CN's II-XI intact bilaterally Cranial nerves: Yes CN's II-XII intact bilaterally Extrem: General: Yes normal to inspection and Yes full ROM Psych: Appearance: grossly normal, well kempt and not disheveled Course Course Course Narrative: Will do a medical evaluation due to age most likely imaging CT scan also. Reevaluation(s) Reevaluation #1: Patient labs are normal and negative for white blood cell count. UA negative for UTI. IV fluids ordered. Was sent for abdominal CT scan. Time: 16:13 Reevaluation #2: Patient states she felt better after IV fluid. Abdominal pain resolved without any pain medication. Patient refused Toradol. CC scan of abdomen came back normal. Patient is safe for discharge Time: 18:52 Medical Decision Making [facility] Narrative Medical decision making narrative: Food poisoning. Gastroenteritis Lab Data Result diagrams: 07/09/21 16:13 07/09/21 16:13 Labs: Lab Results 07/09/21 07/09/21 07/09/21 Range/Units 16:13 16:13 16:13 WBC 5.6 (4.8-10.8) X10*3/uL RBC 4.38 (4.20-5.50) X10*6/uL Hgb 11.9 L (12.0-16.0) g/dl Hct 37.2 (37-47) % MCV 84.9 (80-98) fL MCH 27.2 (27.0-33.0) pg MCHC 32.0 (31.0-35.0) g/dl RDW 16.0 (11.0-16.0) % Plt Count 204 (160-400) X10*3/uL MPV 8.9 L (9.4-12.3) fL Immature Gran % (Auto) 0.4 (0.0-0.4) % Neut % (Auto) 67.0 (45-73) % Lymph % (Auto) 21.4 (20-40) % [place] % (Auto) 9.6 (2-11) % Eos % (Auto) 1.1 (0-4) % Baso % (Auto) 0.5 (0-2) % Lymph # (Auto) 1.2 (1.2-4.9) X10*3/uL [place] # (Auto) 0.5 (0.1-1.2) X10*3/uL Eos # (Auto) 0.1 (0.0-0.4) X10*3/uL Baso # (Auto) 0.0 (0.0-0.2) X10*3/uL Abs Immat Gran (auto) 0.02 (0.00-0.03) X10*3/uL Absolute Neuts (auto) 3.8 (2.0-8.3) X10*3/uL Absolute Nucleated RBC 0.000 (0.0-0.012) X10*3/uL Nucleated RBC % (auto) 0.0 (0.0-0.2) /100WBC Sodium 142 (135-145) mmol/L Potassium 4.3 (3.3-5.1) mmol/L Chloride 108 (96-108) mmol/L Carbon Dioxide 27 (22-29) mmol/L Anion Gap 11 L (12-20) BUN 17 H (9-16) mg/dL Creatinine 1.04 (0.5-1.4) mg/dL Estim Creat Clear Calc 38.8 Estimated GFR 51 Random Glucose 95 (60-115) mg/dL Calcium 9.8 (8.4-10.2) mg/dL Total Bilirubin 0.3 0.3 (0.0-1.0) mg/dL Direct Bilirubin < 0.2 (0.0-0.5) mg/dL AST 20 19 (5-31) U/L ALT 14 14 (0-31) U/L Alkaline Phosphatase 90 89 (39-117) U/L Total Protein 7.9 7.6 (6.5-8.0) g/dL Albumin 4.2 4.1 (3.5-5.0) g/dL Lipase 18 (8-78) U/L Urine Color Urine Appearance Urine pH (5.0-8.0) Ur Specific [place] (1.005-1.025) Urine Protein (NEG-TRACE) MG/DL Urine Glucose (UA) (NEG) MG/DL Urine Ketones (NEG) MG/DL Urine Blood (NEG) Urine Nitrite (NEG) Ur Leukocyte Esterase (NEG) Urine RBC (0) /HPF Urine WBC (0-4) /HPF Ur Squamous Epith Cells /LPF Urine Bacteria /LPF 07/09/21 Range/Units 17:07 WBC (4.8-10.8) X10*3/uL RBC (4.20-5.50) X10*6/uL Hgb (12.0-16.0) g/dl Hct (37-47) % MCV (80-98) fL MCH (27.0-33.0) pg MCHC (31.0-35.0) g/dl RDW (11.0-16.0) % Plt Count (160-400) X10*3/uL MPV (9.4-12.3) fL Immature Gran % (Auto) (0.0-0.4) % Neut % (Auto) (45-73) % Lymph % (Auto) (20-40) % [place] % (Auto) (2-11) % Eos % (Auto) (0-4) % Baso % (Auto) (0-2) % Lymph # (Auto) (1.2-4.9) X10*3/uL [place] # (Auto) (0.1-1.2) X10*3/uL Eos # (Auto) (0.0-0.4) X10*3/uL Baso # (Auto) (0.0-0.2) X10*3/uL Abs Immat Gran (auto) (0.00-0.03) X10*3/uL Absolute Neuts (auto) (2.0-8.3) X10*3/uL Absolute Nucleated RBC (0.0-0.012) X10*3/uL Nucleated RBC % (auto) (0.0-0.2) /100WBC Sodium (135-145) mmol/L Potassium (3.3-5.1) mmol/L Chloride (96-108) mmol/L Carbon Dioxide (22-29) mmol/L Anion Gap (12-20) BUN (9-16) mg/dL Creatinine (0.5-1.4) mg/dL Estim Creat Clear Calc Estimated GFR Random Glucose (60-115) mg/dL Calcium (8.4-10.2) mg/dL Total Bilirubin (0.0-1.0) mg/dL Direct Bilirubin (0.0-0.5) mg/dL AST (5-31) U/L ALT (0-31) U/L Alkaline Phosphatase (39-117) U/L Total Protein (6.5-8.0) g/dL Albumin (3.5-5.0) g/dL Lipase (8-78) U/L Urine Color COLORLESS Urine Appearance CLEAR Urine pH 6.5 (5.0-8.0) Ur Specific [place] <= 1.005 (1.005-1.025) Urine Protein NEG (NEG-TRACE) MG/DL Urine Glucose (UA) NEG (NEG) MG/DL Urine Ketones NEG (NEG) MG/DL Urine Blood TRACE (NEG) Urine Nitrite NEG (NEG) Ur Leukocyte Esterase NEG (NEG) Urine RBC 0-2 (0) /HPF Urine WBC 0-2 (0-4) /HPF Ur Squamous Epith Cells TRACE /LPF Urine Bacteria TRACE /LPF Discharge Plan Discharge Clinical Impression: Food poisoning, Gastroenteritis Patient Disposition: Home, Self-Care Instructions: Gastroenteritis (ED), Food Poisoning (ED) Additional Instructions: Isaac an?lisis de mike volvi? a la normalidad. Isaac orina result? negativa para UTI. La tomograf?a computarizada abdominal result? normal. Regrese al servicio de urgencias inmediatamente si empeora el dolor abdominal, fiebre, escalofr?os, n?useas, v?mitos, mike en las heces, heces negras, diarrea, debilidad, mareos o cualquier otro s?ntoma preocupante. Mariam un seguimiento con isaac PCP. Prescriptions: No Action alum-mag hydroxide-simeth [Mylanta Maximum Strength] 400-400-40 mg/5 mL suspension 10 ml PO TID PRN (Reason: indigestion) Qty: 1 RF: 0 acetaminophen [Athenol] 325 mg tablet 650 mg PO Q6H PRN (Reason: fever or pain) Qty: 30 RF: 0 levothyroxine 75 mcg tablet 1 tab PO DAILY RF: 0 docusate sodium 100 mg capsule 100 mg PO BID Qty: 60 RF: 0 sucralfate [Carafate] 100 mg/mL suspension 10 ml PO BID 14 Days Qty: 280 RF: 0 Print Language: Burmese
[2021-07-09 15:51] VITALS: BP 140/73; PULSE 76; RESP 16; TEMP 36.6; O2SAT 98
[2021-07-09] MEDS: 0.9 % Sodium Chloride 1,000 ML 999 ML IV (16:13)
[2021-07-09 16:16] LABS: MANUAL DIFF FLAG NO
[2021-07-09 16:17] LABS: Basophils Percent Auto 0.5 % (0-2); Eosinophils Absolute Auto 0.1 X10*3/uL (0.0-0.4); Eosinophils Percent Auto 1.1 % (0-4); Hematocrit 37.2 % (37-47); Hemoglobin 11.9 g/dl (12.0-16.0); Imm Gran Abs Auto 0.02 X10*3/uL (0.00-0.03); Imm Gran Pct Auto 0.4 % (0.0-0.4); Lymphocytes Absolute Auto 1.2 X10*3/uL (1.2-4.9); Lymphocytes Percent Auto 21.4 % (20-40); Mean Corpuscular Hemoglobin 27.2 pg (27.0-33.0); Mean Corpuscular Volume 84.9 fL (80-98); Mean Platelet Volume 8.9 fL (9.4-12.3); Monocytes Absolute Auto 0.5 X10*3/uL (0.1-1.2); Monocytes Percent Auto 9.6 % (2-11); Neutrophils Absolute Auto 3.8 X10*3/uL (2.0-8.3); Platelet Count 204 X10*3/uL (160-400); Red Blood Count 4.38 X10*6/uL (4.20-5.50); White Blood Count 5.6 X10*3/uL (4.8-10.8)
[2021-07-09 16:46] LABS: Alanine Aminotransferase 14 U/L (0-31); Albumin Level 4.1 g/dL (3.5-5.0); Alkaline Phosphatase 89 U/L (39-117); Aspartate Amino Transferase 19 U/L (5-31); Bilirubin Direct < 0.2 mg/dL (0.0-0.5); Bilirubin Total 0.3 mg/dL (0.0-1.0); Lipase 18 U/L (8-78); Total Protein 7.6 g/dL (6.5-8.0)
[2021-07-09 16:47] LABS: Alanine Aminotransferase 14 U/L (0-31); Albumin Level 4.2 g/dL (3.5-5.0); Alkaline Phosphatase 90 U/L (39-117); Anion Gap 11 (12-20); Aspartate Amino Transferase 20 U/L (5-31); Bilirubin Total 0.3 mg/dL (0.0-1.0); Blood Urea Nitrogen 17 mg/dL (9-16); Calcium 9.8 mg/dL (8.4-10.2); Carbon Dioxide 27 mmol/L (22-29); Chloride 108 mmol/L (96-108); Creatinine Clr Calc Pharmacy 38.8; Estimated Glomerular Filt Rate 51; Glucose Random 95 mg/dL (60-115); Potassium 4.3 mmol/L (3.3-5.1); Sodium 142 mmol/L (135-145); Total Protein 7.9 g/dL (6.5-8.0)
[2021-07-09 17:34] LABS: Glucose Urine UA NEG (NEG); Leukocyte Esterase Urine NEG (NEG); Nitrite Urine NEG (NEG); PH 6.5 (5.0-8.0); Specific Gravity - Urine <= 1.005 (1.005-1.025); UACC Culture Trigger NO; Urine Blood TRACE (NEG); Urine Ketones NEG (NEG); Urine Protein NEG (NEG-TRACE)
[2021-07-09] MEDS: iohexoL 350 MG/ML 100 ML INFUS..BTL IV (17:36)
[2021-07-09 17:39] LABS: Appearance Urine CLEAR; Color Urine COLORLESS
[2021-07-09] MEDS: Ketorolac Tromethamine 15 MG/ML VIAL 30 MG IVPUSH (17:46)
[2021-07-09 17:47] LABS: Bacteria Urine TRACE /LPF; RBC Urine 0-2 /HPF (0); Squamous Epithelial Cell Urine TRACE /LPF; WBC Urine 0-2 /HPF (0-4)
== END 2021-07-09 19:32 | disposition home or self-care (01) ==
PROVIDERS: Physician Assistant; Emergency Provider Internal Medicine; PCP Internal Medicine
DX: A05.9 Bacterial foodborne intoxication, unspecified (principal); K52.9 Noninfective gastroenteritis and colitis, unspecified
CPT/HCPCS: 36415; 74177; 80053; 80076; 81001; 82248; 83690; 85025; 96361; 96374; 99283; 99284; J1885; Q9967

== ENCOUNTER 2021-10-06 10:49 | Emergency (ER) | payer MEDICARE, SELFPAY ==
[2021-10-06 11:30] VITALS: BP 136/68; BP 150/72; PULSE 67; PULSE 70; RESP 18; TEMP 37.4; O2SAT 98; BMI 23.0
--- NOTE | 2021-10-06 11:40 | ED_ITS ---
HPI - Abdominal Pain General Chief Complaint: Abdominal Pain Stated Complaint: abd pain Time Seen by Provider: 10/06/21 11:10 Source: patient Mode of arrival: ambulatory History of Present Illness HPI narrative: 81-year-old female with a past medical history of anxiety, arthritis, dysphagia, GERD, GI bleed, colitis, hypothyroid, presenting to the ED complaining of lower abdominal/suprapubic abdominal pain since this morning. Denies fever, chills, nausea, vomiting, diarrhea/constipation, dysuria/hematuria, flank pain MD elicited complaint: abdominal pain Related Data Home Medications Medication Instructions Recorded Confirmed levothyroxine 75 mcg tablet 1 tab PO DAILY 11/07/20 04/07/21 cholecalciferol (vitamin D3) 25 25 mcg PO DAILY 11/28/20 04/07/21 mcg (1,000 unit) capsule pantoprazole 40 mg tablet,delayed 40 mg PO DAILY 11/28/20 04/07/21 release Previous Rx's Medication Instructions Recorded aluminum-mag hydroxide-simethicone 10 ml PO TID PRN #1 ea 09/03/20 400 mg-400 mg-40 mg/5 mL oral susp (Mylanta Maximum Strength) acetaminophen 325 mg tablet 650 mg PO Q6H PRN #30 tab 09/27/20 (Athenol) sucralfate 100 mg/mL oral 10 ml PO BID 14 Days #280 ml 10/16/20 suspension (Carafate) docusate sodium 100 mg capsule 100 mg PO BID #60 cap 11/08/20 Allergies Allergy/AdvReac Type Severity Reaction Status Date / Time azithromycin [From ZITHROMAX] Allergy Severe GENERIC Verified 10/06/21 11:30 ONLY-SEVERE ABD PAIN, abdominal pain codeine [CODEINE] Allergy Intermediate NAUSEA & Verified 10/06/21 11:30 VOMITING,FAINTED, nausea, vomiting, syncope erythromycin base Allergy Intermediate HIVES, ABD Verified 10/06/21 11:30 [ERYTHROMYCIN BASE] PAIN promethazine [From PHENERGAN] Allergy Intermediate DIZZY / Verified 10/06/21 11:30 NAUSEATED amoxicillin [Prevpac] Allergy Unknown Unknown Verified 10/06/21 11:30 clarithromycin [Prevpac] Allergy Unknown Unknown Verified 10/06/21 11:30 Review of Systems Review of Systems Constitutional: No Fever, No Fatigue, No Malaise ENT/Mouth: No Ear Pain, No Nasal Congestion, No sore throat Eyes: No Eye Pain, No Swelling, No Redness Cardiovascular: No Chest Pain, No SOB Respiratory: No Cough, No Dyspnea Gastrointestinal: No Nausea, No Vomiting, No Diarrhea, No Constipation, + Abdominal pain Genitourinary: No irregular bleeding, No Dysuria, No Urinary Frequency, No Hematuria, No Flank Pain, No Urinary Flow Changes, No Hesitancy Musculoskeletal: No joint pain, No Myalgias Skin: No Skin Lesions, No rash Neuro: No Weakness, No Headache Yes all other systems are reviewed and are negative Physical Exam Vital Signs: Vital Signs: Last Vital Signs Temp 99.4 F 10/06/21 11:30 Pulse 67 10/06/21 13:09 Resp 18 10/06/21 11:30 BP 137/66 10/06/21 13:09 Pulse Ox 97 10/06/21 13:09 Body Mass Index 23.0 Const: General: cooperative, healthy appearing and no acute distress Orientation/consciousness: patient oriented x3 Limitations: no limitations HENMT: Head: Yes normal to inspection Ears: hearing grossly normal bila terally General nose exam: Normal external nose present Face and sinus: Yes normal facial exam Eyes: General: appearance normal, both eyes and all related structures EOM: EOMs intact bilaterally Neck: Neck: Yes normal visual inspection Resp: Effort & Inspection: normal respiratory effort and no respiratory distress Cardio: Rate: regular rate Heart sounds: S1 normal heart sound present and S2 normal heart sound present GI: Inspection: Yes normal to inspection Palpation (GI): Soft to palpation, nontender, no guarding and not rigid : General: Yes no CVA tenderness Back/Spine/Pelvis: Back: no CVA tenderness Skin: Rashes: no rashes Wounds: no wounds Neuro: General: patient oriented x3 Gait exam (Neuro): Normal gait present Extrem: General: Yes normal to inspection, Yes no pedal edema and Yes no calf tenderness Course Course Course Narrative: -1319--no leukocytosis. H&H stable. Labs otherwise unremarkable -UA with RBCs, not infected > results discussed with patient including recent signs and symptoms and strict return precautions MDM - Abdominal Pain MDM Narrative Medical decision making narrative: 81-year-old female with a past medical history of anxiety, arthritis, dysphagia, GERD, GI bleed, colitis, hypothyroid, presenting to the ED complaining of lower abdominal/suprapubic abdominal pain since this morning. On exam vital signs stable, NAD, nontoxic, abdomen soft/nontender, no CVAT. Insert you take lower concern for appendicitis/diverticulitis, renal stone, pyelo, pancreatitis or cholecystitis Plan: Labs, UA Medical Records Attestation: I reviewed the patient's medical records. Lab Data Attestation: I reviewed the patient's lab results. Result diagrams: 10/06/21 12:40 10/06/21 12:40 Labs: Lab Results 10/06/21 10/06/21 10/06/21 Range/Units 12:40 12:40 12:42 WBC 5.5 (4.8-10.8) X10*3/uL RBC 4.35 (4.20-5.50) X10*6/uL Hgb 12.3 (12.0-16.0) g/dl Hct 37.6 (37.0-47.0) % MCV 86.4 (80.0-98.0) fL MCH 28.3 (27.0-33.0) pg MCHC 32.7 (31.0-35.0) g/dl RDW 15.2 (11.0-16.0) % Plt Count 196 (160-400) X10*3/uL MPV 9.6 (9.4-12.3) fL Immature Gran % (Auto) 0.5 H (0.0-0.4) % Neut % (Auto) 70.3 (45-73) % Lymph % (Auto) 20.4 (20-40) % [place] % (Auto) 7.3 (2-11) % Eos % (Auto) 1.1 (0-4) % Baso % (Auto) 0.4 (0-2) % Lymph # (Auto) 1.1 L (1.2-4.9) X10*3/uL [place] # (Auto) 0.4 (0.1-1.2) X10*3/uL Eos # (Auto) 0.1 (0.0-0.4) X10*3/uL Baso # (Auto) 0.0 (0.0-0.2) X10*3/uL Abs Immat Gran (auto) 0.03 (0.00-0.03) X10*3/uL Absolute Neuts (auto) 3.9 (2.0-8.3) x10*3/uL Absolute Nucleated RBC 0.000 (0.0-0.012) X10*3/uL Nucleated RBC % (auto) 0.0 (0.0-0.2) /100WBC Sodium 142 (135-145) mmol/L Potassium 4.3 (3.3-5.1) mmol/L Chloride 107 (96-108) mmol/L Carbon Dioxide 29 (22-29) mmol/L Anion Gap 10 L (12-20) BUN 15 (9-16) mg/dL Creatinine 0.81 (0.5-1.4) mg/dL Estim Creat Clear Calc 47.8 Estimated GFR > 60 Random Glucose 89 (60-115) mg/dL Calcium 9.3 (8.4-10.2) mg/dL Magnesium 2.0 (1.6-2.6) mg/dL Total Bilirubin 0.5 (0.0-1.0) mg/dL Direct Bilirubin < 0.2 (0.0-0.5) mg/dL AST 18 (5-31) U/L ALT 14 (0-31) U/L Alkaline Phosphatase 80 (39-117) U/L Total Protein 7.4 (6.5-8.0) g/dL Albumin 3.9 (3.5-5.0) g/dL Lipase 23 (8-78) U/L Urine Color YELLOW Urine Appearance CLEAR Urine pH 6.0 (5.0-8.0) Ur Specific [place] 1.020 (1.005-1.025) Urine Protein NEG (NEG-TRACE) MG/DL Urine Glucose (UA) NEG (NEG) MG/DL Urine Ketones NEG (NEG) MG/DL Urine Blood 1+ H (NEG) Urine Nitrite NEG (NEG) Ur Leukocyte Esterase NEG (NEG) Urine RBC 10-14 H (0) /HPF Urine WBC 0-2 (0-4) /HPF Ur Squamous Epith Cells TRACE /LPF Ur Renal Epithelial Cell TRACE /LPF Urine Bacteria NONE /LPF Urine Mucus TRACE /LPF Discharge Plan Discharge Clinical Impression: Abdominal pain, suprapubic, Microscopic hematuria Patient Disposition: Home, Self-Care Instructions: Hematuria (ED) Additional Instructions: Your blood work was reassuring today in the ED Your urine had blood in it, please follow-up with her primary care doctor to have this repeated/further testing If he develops rosa elena blood in your urine, constant worsening abdominal pain, n ausea, vomiting, fever, patient turn to the ED Prescriptions: No Action alum-mag hydroxide-simeth [Mylanta Maximum Strength] 400-400-40 mg/5 mL suspension 10 ml PO TID PRN (Reason: indigestion) Qty: 1 RF: 0 acetaminophen [Athenol] 325 mg tablet 650 mg PO Q6H PRN (Reason: fever or pain) Qty: 30 RF: 0 levothyroxine 75 mcg tablet 1 tab PO DAILY RF: 0 docusate sodium 100 mg capsule 100 mg PO BID Qty: 60 RF: 0 sucralfate [Carafate] 100 mg/mL suspension 10 ml PO BID 14 Days Qty: 280 RF: 0 Referrals: [facility] [Primary Care Provider] - 2 days [facility] Past Medical History Attestation statement: The following information was validated with the patient. Medical History Anxiety Arthritis Bright red blood per rectum Constipation Dysphagia GERD (gastroesophageal reflux disease) GI bleed History of anemia History of colitis Hx of breast cancer Hx of syncope Hypothyroid Weight loss, unintentional Surgical History History of ankle surgery Family History Family History Father No problems noted. Mother Hx of colon cancer, stage IV Social History Social History (System 06/19/21 @ 08:10 by Rachel Palomino) Household Members: None Housing: Apartment Do you presently have visiting nurse or other home services: Yes ([employer] LEARNING [employer]ACH[employer]) Alcohol intake: never Advance Directives: Yes Advance Directives on File: Yes Advance Directives Date on File: 10/20/20 service: No Current occupational status: retired
[2021-10-06 12:48] LABS: MANUAL DIFF FLAG NO
[2021-10-06 12:50] LABS: Appearance Urine CLEAR; Color Urine YELLOW; Glucose Urine UA NEG (NEG); Leukocyte Esterase Urine NEG (NEG); Nitrite Urine NEG (NEG); UACC Culture Trigger NO; Urine Blood 1+ (NEG); Urine Ketones NEG (NEG); Urine Protein NEG (NEG-TRACE)
[2021-10-06 12:50] LABS: Basophils Percent Auto 0.4 % (0-2); Eosinophils Absolute Auto 0.1 X10*3/uL (0.0-0.4); Eosinophils Percent Auto 1.1 % (0-4); Hematocrit 37.6 % (37.0-47.0); Hemoglobin 12.3 g/dl (12.0-16.0); Imm Gran Abs Auto 0.03 X10*3/uL (0.00-0.03); Imm Gran Pct Auto 0.5 % (0.0-0.4); Lymphocytes Absolute Auto 1.1 X10*3/uL (1.2-4.9); Lymphocytes Percent Auto 20.4 % (20-40); Mean Corpuscular HGB Conc 32.7 g/dl (31.0-35.0); Mean Corpuscular Hemoglobin 28.3 pg (27.0-33.0); Mean Corpuscular Volume 86.4 fL (80.0-98.0); Mean Platelet Volume 9.6 fL (9.4-12.3); Monocytes Absolute Auto 0.4 X10*3/uL (0.1-1.2); Monocytes Percent Auto 7.3 % (2-11); Neutrophils Absolute Auto 3.9 x10*3/uL (2.0-8.3); Neutrophils Percent Auto 70.3 % (45-73); Platelet Count 196 X10*3/uL (160-400); Red Blood Count 4.35 X10*6/uL (4.20-5.50); Red Cell Distribution Width 15.2 % (11.0-16.0); White Blood Count 5.5 X10*3/uL (4.8-10.8)
[2021-10-06 13:00] LABS: Mucus Urine TRACE /LPF; Renal Epithelial Cells Urine TRACE /LPF; Squamous Epithelial Cell Urine TRACE /LPF; WBC Urine 0-2 /HPF (0-4)
[2021-10-06 13:08] LABS: Alanine Aminotransferase 14 U/L (0-31); Albumin Level 3.9 g/dL (3.5-5.0); Alkaline Phosphatase 80 U/L (39-117); Anion Gap 10 (12-20); Aspartate Amino Transferase 18 U/L (5-31); Bilirubin Direct < 0.2 mg/dL (0.0-0.5); Bilirubin Total 0.5 mg/dL (0.0-1.0); Blood Urea Nitrogen 15 mg/dL (9-16); Calcium 9.3 mg/dL (8.4-10.2); Carbon Dioxide 29 mmol/L (22-29); Chloride 107 mmol/L (96-108); Creatinine Clr Calc Pharmacy 47.8; Estimated Glomerular Filt Rate > 60; Glucose Random 89 mg/dL (60-115); Lipase 23 U/L (8-78); Potassium 4.3 mmol/L (3.3-5.1); Sodium 142 mmol/L (135-145); Total Protein 7.4 g/dL (6.5-8.0)
[2021-10-06 13:09] VITALS: BP 137/66; PULSE 67; O2SAT 97
--- NOTE | 2021-10-06 13:13 | PC.NURSE ---
vitals taken, pt reports she wants to go home, she has to go dancing this weekend.
== END 2021-10-06 13:56 | disposition home or self-care (01) ==
PROVIDERS: Physician Assistant; Emergency Provider Emergency Medicine
DX: R10.30 Lower abdominal pain, unspecified (principal); R31.29 Other microscopic hematuria
CPT/HCPCS: 36415; 80048; 80076; 81001; 83690; 83735; 85025; 99283

== ENCOUNTER 2021-11-08 09:21 | Emergency (ER) | payer MEDICARE, SELFPAY ==
[2021-11-08 09:38] VITALS: BP 160/73; BP 172/98; PULSE 70; PULSE 80; RESP 18; TEMP 36.3; O2SAT 98; BMI 20.9
--- NOTE | 2021-11-08 09:45 | ED.ABDPAIN ---
HPI - Abdominal Pain General Chief Complaint: Abdominal Pain Stated Complaint: ABD PAIN Time Seen by Provider: 11/08/21 09:29 Source: patient and EMS Mode of arrival: EMS Limitations: language barrier (Irish-speaking) History of Present Illness HPI narrative: 81-year-old female with a past medical history of anxiety, arthritis, dysphagia, GERD, GI, colitis, hypothyroidism who seen frequently here in the ER with complaints of epigastric abdominal discomfort that started this morning after she ate some fried fries. She reports that it is not even a pain it is just discomfort. She denies any other symptoms related to this including any fevers, chills, dizziness, headaches, neck pain/stiffness, chest pain or shortness of breath, dyspnea on exertion, orthopnea, nausea/vomiting/diarrhea, constipation, black or bloody stools, recent travel, sick contacts, dysuria, hematuria, abnormal vaginal discharge, rashes or any other symptoms complaints or concerns at this time. MD elicited complaint: abdominal pain Pertinent past history: other (See above) Onset (ago): hour(s) (Prior to arrival) Pain Consistency: constant Location: epigastric Severity: mild Quality: aching Radiation: none Migration to: no migration Exacerbating factors: nothing Relieving factors: nothing Context: other (See above) Associated symptoms: denies other symptoms Related Data Home Medications Medication Instructions Recorded Confirmed levothyroxine 75 mcg tablet 1 tab PO DAILY 11/07/20 04/07/21 cholecalciferol (vitamin D3) 25 25 mcg PO DAILY 11/28/20 04/07/21 mcg (1,000 unit) capsule pantoprazole 40 mg tablet,delayed 40 mg PO DAILY 11/28/20 04/07/21 release Previous Rx's Medication Instructions Recorded aluminum-mag hydroxide-simethicone 10 ml PO TID PRN #1 ea 09/03/20 400 mg-400 mg-40 mg/5 mL oral susp (Mylanta Maximum Strength) acetaminophen 325 mg tablet 650 mg PO Q6H PRN #30 tab 09/27/20 (Athenol) sucralfate 100 mg/mL oral 10 ml PO BID 14 Days #280 ml 10/16/20 suspension (Carafate) docusate sodium 100 mg capsule 100 mg PO BID #60 cap 11/08/20 Allergies Allergy/AdvReac Type Severity Reaction Status Date / Time azithromycin [From ZITHROMAX] Allergy Severe GENERIC Verified 10/06/21 11:30 ONLY-SEVERE ABD PAIN, abdominal pain codeine [CODEINE] Allergy Intermediate NAUSEA & Verified 10/06/21 11:30 VOMITING,FAINTED, nausea, vomiting, syncope erythromycin base Allergy Intermediate HIVES, ABD Verified 10/06/21 11:30 [ERYTHROMYCIN BASE] PAIN promethazine [From PHENERGAN] Allergy Intermediate DIZZY / Verified 10/06/21 11:30 NAUSEATED amoxicillin [Prevpac] Allergy Unknown Unknown Verified 10/06/21 11:30 clarithromycin [Prevpac] Allergy Unknown Unknown Verified 10/06/21 11:30 Review of Systems Review of Systems Constitutional : No Fever, No Chills, No Night Sweats, No Fatigue, No Malaise Cardiovascular : No Chest Pain, No SOB Respiratory : No Cough, No Sputum, No Wheezing, No Dyspnea Gastrointestinal : + abdominal pain, No Nausea, No Vomiting, No Diarrhea, No Hematochezia, No Melena Genitourinary : No irregular bleeding, No Dysuria, No Urinary Frequency, No Hematuria,No Urinary Incontinence, No Urgency, No Flank Pain Musculoskeletal : No joint pain, No Myalgias, No Joint Swelling Skin : No Skin Lesions, No rash Neuro : No Weakness, No Numbness, No Paresthesias, No Loss of Consciousness, No Dizziness, No Headache Heme/Lymph: No Lymphadenopathy Endocrine : No Temperature Intolerance Yes all other systems are reviewed and are negative Physical Exam Vital Signs: Vital Signs: Last Vital Signs Temp 97.4 F 11/08/21 09:38 Pulse 70 11/08/21 09:38 Resp 18 11/08/21 09:38 BP 160/73 H 11/08/21 09:38 Pulse Ox 98 11/08/21 09:38 BMI result Body Mass Index 20.9 vital signs have been reviewed as normal and appeared to be correct. Blood pressure normal. Heart rate normal. Respiration rate normal. Temperature normal. Oxygen saturation normal. Appearance: Alert. Oriented X3. No acute distress. Head: Normal external exam. Normocephalic. Eyes: PERRLA. EOMI. Conjunctiva and sclera normal. Eyelids normal. ENT: Pharynx normal. Uvula midline. Moist mucous membranes. Neck: Normal inspection. Neck supple. FROM. No adenopathy. No meningeal signs. CVS: Normal heart rate and rhythm. Heart sound normal. No murmurs noted. Pulses normal throughout. Respiratory: No respiratory distress. Painless inspiration. Breath sounds normal. No wheezes/rales/rhonchi noted. Chest nontender. No accessory muscle usage noted or decreased air movement noted. Abdomen: Soft and nontender. Nondistended. No guarding. No rigidity. Bowel sounds normal in all 4 quadrants. No distention noted. No organomegaly noted. No visible injury noted. No rebound tenderness. Negative Rovsing sign. Negative obturator's sign. Negative psoas sign. Negative Howell sign. Back: No CVA tenderness. Full range of motion noted. Skin: Skin warm and dry. Normal skin color. Normal skin turgor. No rashes/lesions/lacerations noted. Extremities: Extremities exhibit normal range of motion. Extremities nontender. Neuro: Oriented X 3. No motor deficit. No sensory deficit. Reflexes normal. Normal steady gait. Course Reevaluation(s) Reevaluation #1: - all labs within normal limits. Patient is tolerating p.o. fluids/solids. She denies any abdominal pain and her abdomen is soft and nontender. I explained to her that I would want a urine and she reports that she is not having any burning with urination and she does not believe she has urinary tract infection therefore she refused to get of urine. She reports that she could a told me that her lab work and be normal. Therefore I explained to her that she should return if any new or worsening symptoms and follow-up with her primary care provider she will be discharged at this time. Time: 10:58 MDM - Abdominal Pain [facility] Narrative Medical decision making narrative: 9:30am - 81-year-old female presenting to the ED with complaints of epigastric abdominal pain that started this morning after she ate some food. Denies any other symptoms related to this. On exam patient is alert and oriented. Not in any acute distress. Vital signs are stable within normal limits. Lungs are clear to auscultation. CV RRR. Abdomen is soft nontender. Plan: Labs no imaging indicated as patient abdomen is soft and nontender she reports her abdominal pain is not an actual pain just a discomfort that is almost resolved at this time then re-evaluate. Medical Records Attestation: I reviewed the patient's medical records. Lab Data Attestation: I reviewed the patient's lab results. Result diagrams: 11/08/21 10:24 11/08/21 10:24 Labs: Lab Results 11/08/21 11/08/21 11/08/21 Range/Units 10:24 10:24 10:24 WBC 5.0 (4.8-10.8) X10*3/uL RBC 4.70 (4.20-5.50) X10*6/uL Hgb 13.1 (12.0-16.0) g/dl Hct 40.0 (37.0-47.0) % MCV 85.1 (80.0-98.0) fL MCH 27.9 (27.0-33.0) pg MCHC 32.8 (31.0-35.0) g/dl RDW 14.6 (11.0-16.0) % Plt Count 184 (160-400) X10*3/uL MPV 9.5 (9.4-12.3) fL Immature Gran % (Auto) 0.4 (0.0-0.4) % Neut % (Auto) 62.5 (45-73) % Lymph % (Auto) 26.9 (20-40) % [place] % (Auto) 7.6 (2-11) % Eos % (Auto) 2.0 (0-4) % Baso % (Auto) 0.6 (0-2) % Lymph # (Auto) 1.3 (1.2-4.9) X10*3/uL [place] # (Auto) 0.4 (0.1-1.2) X10*3/uL Eos # (Auto) 0.1 (0.0-0.4) X10*3/uL Baso # (Auto) 0.0 (0.0-0.2) X10*3/uL Abs Immat Gran (auto) 0.02 (0.00-0.03) X10*3/uL Absolute Neuts (auto) 3.1 (2.0-8.3) x10*3/uL Absolute Nucleated RBC 0.000 (0.0-0.012) X10*3/uL Nucleated RBC % (auto) 0.0 (0.0-0.2) /100WBC Hold Purple Top PT 11.7 (9.9-13.0) SEC INR 1.0 (0.9-1.1) Sodium 142 (135-145) mmol/L Potassium 3.9 (3.3-5.1) mmol/L Chloride 106 (96-108) mmol/L Carbon Dioxide 27 (22-29) mmol/L Anion Gap 13 (12-20) BUN 14 (9-16) mg/dL Creatinine 0.94 (0.5-1.4) mg/dL Estim Creat Clear Calc 44.4 Estimated GFR 57 Random Glucose 91 (60-115) mg/dL Calcium 9.7 (8.4-10.2) mg/dL Magnesium 2.0 (1.6-2.6) mg/dL Total Bilirubin 0.3 (0.0-1.0) mg/dL AST 19 (5-31) U/L ALT 13 (0-31) U/L Alkaline Phosphatase 83 (39-117) U/L Total Protein 7.8 (6.5-8.0) g/dL Albumin 4.1 (3.5-5.0) g/dL Lipase 21 (8-78) U/L 11/08/21 Range/Units 10:24 WBC (4.8-10.8) X10*3/uL RBC (4.20-5.50) X10*6/uL Hgb (12.0-16.0) g/dl Hct (37.0-47.0) % MCV (80.0-98.0) fL MCH (27.0-33.0) pg MCHC (31.0-35.0) g/dl RDW (11.0-16.0) % Plt Count (160-400) X10*3/uL MPV (9.4-12.3) fL Immature Gran % (Auto) (0.0-0.4) % Neut % (Auto) (45-73) % Lymph % (Auto) (20-40) % [place] % (Auto) (2-11) % Eos % (Auto) (0-4) % Baso % (Auto) (0-2) % Lymph # (Auto) (1.2-4.9) X10*3/uL [place] # (Auto) (0.1-1.2) X10*3/uL Eos # (Auto) (0.0-0.4) X10*3/uL Baso # (Auto) (0.0-0.2) X10*3/uL Abs Immat Gran (auto) (0.00-0.03) X10*3/uL Absolute Neuts (auto) (2.0-8.3) x10*3/uL Absolute Nucleated RBC (0.0-0.012) X10*3/uL Nucleated RBC % (auto) (0.0-0.2) /100WBC Hold Purple Top SEE NOTE PT (9.9-13.0) SEC INR (0.9-1.1) Sodium (135-145) mmol/L Potassium (3.3-5.1) mmol/L Chloride (96-108) mmol/L Carbon Dioxide (22-29) mmol/L Anion Gap (12-20) BUN (9-16) mg/dL Creatinine (0.5-1.4) mg/dL Estim Creat Clear Calc Estimated GFR Random Glucose (60-115) mg/dL Calcium (8.4-10.2) mg/dL Magnesium (1.6-2.6) mg/dL Total Bilirubin (0.0-1.0) mg/dL AST (5-31) U/L ALT (0-31) U/L Alkaline Phosphatase (39-117) U/L Total Protein (6.5-8.0) g/dL Albumin (3.5-5.0) g/dL Lipase (8-78) U/L Discharge Plan Discharge Clinical Impression: Abdominal pain Patient Disposition: Home, Self-Care Instructions: Abdominal Pain (ED) Prescriptions: No Action alum-mag hydroxide-simeth [Mylanta Maximum Strength] 400-400-40 mg/5 mL suspension 10 ml PO TID PRN (Reason: indigestion) Qty: 1 RF: 0 acetaminophen [Athenol] 325 mg tablet 650 mg PO Q6H PRN (Reason: fever or pain) Qty: 30 RF: 0 levothyroxine 75 mcg tablet 1 tab PO DAILY RF: 0 docusate sodium 100 mg capsule 100 mg PO BID Qty: 60 RF: 0 sucralfate [Carafate] 100 mg/mL suspension 10 ml PO BID 14 Days Qty: 280 RF: 0 Referrals: Dodie Desouza [Emergency Nurse] - 2 days Print Language: Irish [facility] Past Medical History Attestation statement: The following information was validated with the patient. Medical History Anxiety Arthritis Bright red blood per rectum Constipation Dysphagia GERD (gastroesophageal reflux disease) GI bleed History of anemia History of colitis Hx of breast cancer Hx of syncope Hypothyroid Weight loss, unintentional Surgical History History of ankle surgery Family History Family History Father No problems noted. 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 have visiting nurse or other home services: Yes ([employer]) Alcohol intake: never Advance Directives: Yes Advance Directives on File: Yes Advance Directives Date on File: 10/20/20 service: No Current occupational status: retired
[2021-11-08 10:31] LABS: MANUAL DIFF FLAG NO
[2021-11-08 10:36] LABS: Basophils Percent Auto 0.6 % (0-2); Eosinophils Absolute Auto 0.1 X10*3/uL (0.0-0.4); Hemoglobin 13.1 g/dl (12.0-16.0); Imm Gran Abs Auto 0.02 X10*3/uL (0.00-0.03); Imm Gran Pct Auto 0.4 % (0.0-0.4); Lymphocytes Absolute Auto 1.3 X10*3/uL (1.2-4.9); Lymphocytes Percent Auto 26.9 % (20-40); Mean Corpuscular HGB Conc 32.8 g/dl (31.0-35.0); Mean Corpuscular Hemoglobin 27.9 pg (27.0-33.0); Mean Corpuscular Volume 85.1 fL (80.0-98.0); Mean Platelet Volume 9.5 fL (9.4-12.3); Monocytes Absolute Auto 0.4 X10*3/uL (0.1-1.2); Monocytes Percent Auto 7.6 % (2-11); Neutrophils Absolute Auto 3.1 x10*3/uL (2.0-8.3); Neutrophils Percent Auto 62.5 % (45-73); Platelet Count 184 X10*3/uL (160-400); Red Cell Distribution Width 14.6 % (11.0-16.0)
[2021-11-08 10:41] LABS: Prothrombin Time 11.7 SEC (9.9-13.0)
[2021-11-08 10:47] LABS: Alanine Aminotransferase 13 U/L (0-31); Albumin Level 4.1 g/dL (3.5-5.0); Alkaline Phosphatase 83 U/L (39-117); Anion Gap 13 (12-20); Aspartate Amino Transferase 19 U/L (5-31); Bilirubin Total 0.3 mg/dL (0.0-1.0); Blood Urea Nitrogen 14 mg/dL (9-16); Calcium 9.7 mg/dL (8.4-10.2); Carbon Dioxide 27 mmol/L (22-29); Chloride 106 mmol/L (96-108); Creatinine Clr Calc Pharmacy 44.4; Estimated Glomerular Filt Rate 57; Glucose Random 91 mg/dL (60-115); Lipase 21 U/L (8-78); Potassium 3.9 mmol/L (3.3-5.1); Sodium 142 mmol/L (135-145); Total Protein 7.8 g/dL (6.5-8.0)
[2021-11-08 11:13] LABS: Influenza A PCR NEGATIVE (Negative); Influenza B PCR NEGATIVE (Negative); Resp Syncy Virus RNA Qual PCR NEGATIVE (Negative); SARS COV2 PCR INHOUSE NEGATIVE (Negative)
== END 2021-11-08 11:16 | disposition home or self-care (01) ==
PROVIDERS: Physician Assistant Medical; Emergency Provider Emergency Medicine
DX: R10.13 Epigastric pain (principal); Z20.822 Contact with and (suspected) exposure to COVID-19
CPT/HCPCS: 0241U; 36415; 80053; 83690; 83735; 85025; 85610; 99282; 99283

== ENCOUNTER 2021-11-13 14:54 | Outpatient (REF) | payer MEDICARE, SELFPAY ==
[2021-11-13 17:03] LABS: Urine Cytology See Pathology rpt
== END 2021-11-13 14:55 | disposition home or self-care (01) ==
LOC: HO.LAB 14:54
DX: R31.9 Hematuria, unspecified (principal)
CPT/HCPCS: 88112; 99202

== ENCOUNTER 2021-11-18 13:26 | Emergency (ER) | payer MEDICARE, SELFPAY ==
--- NOTE | ~2021-11-18 | CT_ITS ---
EXAMINATION: CT HEAD WITHOUT CONTRAST CLINICAL INFORMATION: Headache, multiple falls. COMPARISON: CT head dated from 06/16/2021. TECHNIQUE: Contiguous axial imaging was performed from the skull base to vertex without intravenous administration of contrast. This CT examination was performed using dose optimization techniques as appropriate, variously including the following: *Automated exposure control *Adjustment of mA and/or kV according to patient size (this includes techniques or standardized protocols for targeted exams where dose is matched to indication/reason for exam; i.e. extremities or head) *Use of iterative reconstruction technique DLP: 569 mGy-cm FINDINGS: There is no evidence of acute intracranial hemorrhage or edematous territorial infarction. Scattered hypoattenuation in the periventricular and deep white matter are consistent with moderate microangiopathy. 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 Proportional prominence of the ventricles and sulcal spaces. No evidence for obstructive hydrocephalus. No abnormal mass effect or midline shift. No extra-axial fluid collections. No acute soft tissue or osseous abnormalities. The mastoid air cells and paranasal sinuses are clear. CT/CT head/brain wo con IMPRESSION: 1. No evidence of acute intracranial hemorrhage or edematous territorial infarction. 2. 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 3. Moderate microangiopathy.
[2021-11-18 13:33] VITALS: BP 124/80; PULSE 74; O2SAT 98
[2021-11-18 13:55] VITALS: BP 146/74; PULSE 79; RESP 19; TEMP 36.6; O2SAT 97; BMI 23.8
[2021-11-18 17:07] VITALS: BP 126/41; PULSE 67; RESP 20; O2SAT 100
--- NOTE | 2021-11-18 17:13 | ECG_ITS ---
Test Reason : DIZZINESS Blood Pressure : / mmHG Vent. Rate : 059 BPM Atrial Rate : 059 BPM P-R Int : 200 ms QRS Dur : 088 ms QT Int : 440 ms P-R-T Axes : 083 008 041 degrees QTc Int : 435 ms Sinus bradycardia with sinus arrhythmia Septal infarct (cited on or before 20-AUG-2020) Abnormal ECG When compared with ECG of 08-NOV-2020 07:34, No significant change was found Referred By: Kathie Aceves Electronically Signed By:SHAHRZAD PROCTOR MD
--- NOTE | 2021-11-18 17:15 | ED.GENADULT ---
HPI - General Adult General Chief complaint: General Medical Stated complaint: GENERAL BODY PAIN/WEAKNESS, +VACCINES Time Seen by Provider: 11/18/21 17:06 Source: patient Mode of arrival: EMS Limitations: other (Poor historian) History of Present Illness HPI narrative: Patient comes to the emergency room complaining dizziness, states that she has been weak, has had multiple falls. Patient is poor historian, states that she has had dizziness for several years, has had multiple falls over the last 2 years. Seems that patient was recently discharged from short-term rehab and sent home. When I asked the patient with dizziness meds to her, patient is unable to explain. Patient denies chest pain, no shortness of breath, states she has mild headache. No URI or UTI symptoms. Patient denies being on blood thinners at this time, patient complaining of a headache, states that she has not had anything for her pain. Related Data Home Medications Medication Instructions Recorded Confirmed levothyroxine 75 mcg tablet 1 tab PO DAILY 11/07/20 04/07/21 cholecalciferol (vitamin D3) 25 25 mcg PO DAILY 11/28/20 04/07/21 mcg (1,000 unit) capsule pantoprazole 40 mg tablet,delayed 40 mg PO DAILY 11/28/20 04/07/21 release cholecalciferol (vitamin D3) 50 50 mcg PO DAILY 11/13/21 mcg (2,000 unit) capsule levothyroxine 50 mcg tablet 50 mcg PO DAILY 11/13/21 Previous Rx's Medication Instructions Recorded aluminum-mag hydroxide-simethicone 10 ml PO TID PRN #1 ea 09/03/20 400 mg-400 mg-40 mg/5 mL oral susp (Mylanta Maximum Strength) acetaminophen 325 mg tablet 650 mg PO Q6H PRN #30 tab 09/27/20 (Athenol) sucralfate 100 mg/mL oral 10 ml PO BID 14 Days #280 ml 10/16/20 suspension (Carafate) docusate sodium 100 mg capsule 100 mg PO BID #60 cap 11/08/20 Allergies Allergy/AdvReac Type Severity Reaction Status Date / Time azithromycin [From ZITHROMAX] Allergy Severe GENERIC Verified 11/13/21 14:56 ONLY-SEVERE ABD PAIN, abdominal pain codeine [CODEINE] Allergy Intermediate NAUSEA & Verified 11/13/21 14:56 VOMITING,FAINTED, nausea, vomiting, syncope erythromycin base Allergy Intermediate HIVES, ABD Verified 11/13/21 14:56 [ERYTHROMYCIN BASE] PAIN promethazine [From PHENERGAN] Allergy Intermediate DIZZY / Verified 11/13/21 14:56 NAUSEATED amoxicillin [Prevpac] Allergy Unknown Unknown Verified 11/13/21 14:56 clarithromycin [Prevpac] Allergy Unknown Unknown Verified 11/13/21 14:56 Review of Systems Review of Systems: Constitutional : No Weight loss, No Fever, No Chills, No Night Sweats, complaining of chronic fatigue ENT/Mouth : No Hearing loss, No Ear Pain, No Nasal Congestion, No Sinus Pain, No Hoarseness, No sore throat, No Rhinorrhea, No Swallowing Difficulty Eyes: No Eye Pain, No Swelling, No Redness, No Foreign Body, No Discharge, No Vision Changes Cardiovascular : No Chest Pain, No SOB, No Dyspnea on Exertion, No Orthopnea, No Edema, No Palpitations Respiratory : No Cough, No Sputum, No Wheezing, No Smoke Exposure, No Dyspnea Gastrointestinal : No Nausea, No Vomiting, No Diarrhea, No Constipation, No abdominal Pain, No Hematochezia, No Melena Genitourinary : no irregular bleeding, No Dysuria, No Urinary Frequency, No Hematuria, No Urinary Incontinence, No Urgency, No Flank Pain, No Urinary Flow Changes, No Hesitancy Musculoskeletal : No joint pain, No Myalgias, No Joint Swelling Skin : No Skin Lesions, No rash Neuro : Complaining of generalized No Numbness, No Paresthesias, No Loss of Consciousness, complaining of dizziness, unable to explain with dizziness means to her. Complaining of multiple falls, complaining of headache Psych : No Anxiety/Panic, No Depression, No SI/HI/AH/VH, No Social Issues, Heme/Lymph: No Bruising, No Bleeding,No Lymphadenopathy Endocrine : No Polyuria, No Polydipsia, No Temperature Intolerance [facility] Past Medical History Medical History Anxiety Arthritis Bright red blood per rectum Constipation Dysphagia GERD (gastroesophageal reflux disease) GI bleed Hematuria of unknown cause History of anemia History of colitis Hx of breast cancer Hx of syncope Hypothyroid Weight loss, unintentional Surgical History History of ankle surgery Family History Family History Father No problems noted. 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 Patient was able to ambulate without difficulty, I asked the patient to give us some urine, patient states that she does not think it is a UTI and does not want to urinate. Patient states that she feels well and would like to be discharged home. Patient states that she is not dizzy, has no chest pain, no shortness of breath. Has steady gait, patient has no signs of weakness. Patient is calling her family to pick her up. Medical Decision Making Lab Data Result diagrams: 11/18/21 17:27 11/18/21 17:27 Labs: Lab Results 11/18/21 11/18/21 11/18/21 Range/Units 17:27 17:27 17:27 WBC 5.7 (4.8-10.8) X10*3/uL RBC 4.37 (4.20-5.50) X10*6/uL Hgb 12.4 (12.0-16.0) g/dl Hct 38.0 (37.0-47.0) % MCV 87.0 (80.0-98.0) fL MCH 28.4 (27.0-33.0) pg MCHC 32.6 (31.0-35.0) g/dl RDW 14.9 (11.0-16.0) % Plt Count 219 (160-400) X10*3/uL MPV 9.3 L (9.4-12.3) fL Immature Gran % (Auto) 0.3 (0.0-0.4) % Neut % (Auto) 62.0 (45-73) % Lymph % (Auto) 27.6 (20-40) % [place] % (Auto) 7.9 (2-11) % Eos % (Auto) 1.7 (0-4) % Baso % (Auto) 0.5 (0-2) % Lymph # (Auto) 1.6 (1.2-4.9) X10*3/uL [place] # (Auto) 0.5 (0.1-1.2) X10*3/uL Eos # (Auto) 0.1 (0.0-0.4) X10*3/uL Baso # (Auto) 0.0 (0.0-0.2) X10*3/uL Abs Immat Gran (auto) 0.02 (0.00-0.03) X10*3/uL Absolute Neuts (auto) 3.6 (2.0-8.3) x10*3/uL Absolute Nucleated RBC 0.000 (0.0-0.012) X10*3/uL Nucleated RBC % (auto) 0.0 (0.0-0.2) /100WBC Sodium 141 (135-145) mmol/L Potassium 3.9 (3.3-5.1) mmol/L Chloride 107 (96-108) mmol/L Carbon Dioxide 27 (22-29) mmol/L Anion Gap 11 L (12-20) BUN 16 (9-16) mg/dL Creatinine 1.02 (0.5-1.4) mg/dL Estim Creat Clear Calc 34.8 Estimated GFR 52 Random Glucose 89 (60-115) mg/dL Calcium 9.7 (8.4-10.2) mg/dL Total Bilirubin 0.3 (0.0-1.0) mg/dL Direct Bilirubin < 0.2 (0.0-0.5) mg/dL AST 21 (5-31) U/L ALT 12 (0-31) U/L Alkaline Phosphatase 77 (39-117) U/L Troponin I High Sens < 3.5 (<3.5-17.0) ng/L Total Protein 7.6 (6.5-8.0) g/dL Albumin 4.0 (3.5-5.0) g/dL Ethyl Alcohol mg/dL 11/18/ Range/Units 17:27 WBC (4.8-10.8) X10*3/uL RBC (4.20-5.50) X10*6/uL Hgb (12.0-16.0) g/dl Hct (37.0-47.0) % MCV (80.0-98.0) fL MCH (27.0-33.0) pg MCHC (31.0-35.0) g/dl RDW (11.0-16.0) % Plt Count (160-400) X10*3/uL MPV (9.4-12.3) fL Immature Gran % (Auto) (0.0-0.4) % Neut % (Auto) (45-73) % Lymph % (Auto) (20-40) % [place] % (Auto) (2-11) % Eos % (Auto) (0-4) % Baso % (Auto) (0-2) % Lymph # (Auto) (1.2-4.9) X10*3/uL [place] # (Auto) (0.1-1.2) X10*3/uL Eos # (Auto) (0.0-0.4) X10*3/uL Baso # (Auto) (0.0-0.2) X10*3/uL Abs Immat Gran (auto) (0.00-0.03) X10*3/uL Absolute Neuts (auto) (2.0-8.3) x10*3/uL Absolute Nucleated RBC (0.0-0.012) X10*3/uL Nucleated RBC % (auto) (0.0-0.2) /100WBC Sodium (135-145) mmol/L Potassium (3.3-5.1) mmol/L Chloride (96-108) mmol/L Carbon Dioxide (22-29) mmol/L Anion Gap (12-20) BUN (9-16) mg/dL Creatinine (0.5-1.4) mg/dL Estim Creat Clear Calc Estimated GFR Random Glucose (60-115) mg/dL Calcium (8.4-10.2) mg/dL Total Bilirubin (0.0-1.0) mg/dL Direct Bilirubin (0.0-0.5) mg/dL AST (5-31) U/L ALT (0-31) U/L Alkaline Phosphatase (39-117) U/L Troponin I High Sens (<3.5-17.0) ng/L Total Protein (6.5-8.0) g/dL Albumin (3.5-5.0) g/dL Ethyl Alcohol < 10 mg/dL Imaging Data CT scan - head: Radiologist's impression: FINDINGS: There is no evidence of acute intracranial hemorrhage or edematous territorial infarction. Scattered hypoattenuation in the periventricular and deep white matter are consistent with moderate microangiopathy. 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 Proportional prominence of the ventricles and sulcal spaces. No evidence for obstructive hydrocephalus. No abnormal mass effect or midline shift. No extra-axial fluid collections. No acute soft tissue or osseous abnormalities. The mastoid air cells and paranasal sinuses are clear. ? CT/CT head/brain wo con IMPRESSION: 1. No evidence of acute intracranial hemorrhage or edematous territorial infarction. 2. 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 3. Moderate microangiopathy. ECG Data Attestation: I personally reviewed and interpreted this ECG as follows: (Sinus bradycardia, heart rate 59, no ST segment depression or elevation, no T-wave inversion, QTC 435) Discharge Plan Discharge Clinical Impression: Weakness, Dizziness Patient Disposition: Home, Self-Care Instructions: Dizziness (ED) Additional Instructions: Please follow-up with your primary care physician tomorrow. If you have any worsening or new symptoms, please return to the emergency room or call 911 Prescriptions: No Action alum-mag hydroxide-simeth [Mylanta Maximum Strength] 400-400-40 mg/5 mL suspension 10 ml PO TID PRN (Reason: indigestion) Qty: 1 RF: 0 acetaminophen [Athenol] 325 mg tablet 650 mg PO Q6H PRN (Reason: fever or pain) Qty: 30 RF: 0 levothyroxine 75 mcg tablet 1 tab PO DAILY RF: 0 docusate sodium 100 mg capsule 100 mg PO BID Qty: 60 RF: 0 sucralfate [Carafate] 100 mg/mL suspension 10 ml PO BID 14 Days Qty: 280 RF: 0 pantoprazole 40 mg tablet,delayed release (DR/EC) 40 mg PO DAILY RF: 0 cholecalciferol (vitamin D3) 25 mcg (1,000 unit) capsule 25 mcg PO DAILY RF: 0 cholecalciferol (vitamin D3) 50 mcg (2,000 unit) capsule 50 mcg PO DAILY RF: 0 levothyroxine 50 mcg tablet 50 mcg PO DAILY RF: 0
[2021-11-18 17:32] LABS: Basophils Percent Auto 0.5 % (0-2); Eosinophils Absolute Auto 0.1 X10*3/uL (0.0-0.4); Eosinophils Percent Auto 1.7 % (0-4); Hemoglobin 12.4 g/dl (12.0-16.0); Imm Gran Abs Auto 0.02 X10*3/uL (0.00-0.03); Imm Gran Pct Auto 0.3 % (0.0-0.4); Lymphocytes Absolute Auto 1.6 X10*3/uL (1.2-4.9); Lymphocytes Percent Auto 27.6 % (20-40); MANUAL DIFF FLAG NO; Mean Corpuscular HGB Conc 32.6 g/dl (31.0-35.0); Mean Corpuscular Hemoglobin 28.4 pg (27.0-33.0); Mean Platelet Volume 9.3 fL (9.4-12.3); Monocytes Absolute Auto 0.5 X10*3/uL (0.1-1.2); Monocytes Percent Auto 7.9 % (2-11); Neutrophils Absolute Auto 3.6 x10*3/uL (2.0-8.3); Platelet Count 219 X10*3/uL (160-400); Red Blood Count 4.37 X10*6/uL (4.20-5.50); Red Cell Distribution Width 14.9 % (11.0-16.0); White Blood Count 5.7 X10*3/uL (4.8-10.8)
[2021-11-18 17:49] LABS: Ethanol < 10 mg/dL
[2021-11-18 17:52] LABS: Alanine Aminotransferase 12 U/L (0-31); Alkaline Phosphatase 77 U/L (39-117); Anion Gap 11 (12-20); Aspartate Amino Transferase 21 U/L (5-31); Bilirubin Direct < 0.2 mg/dL (0.0-0.5); Bilirubin Total 0.3 mg/dL (0.0-1.0); Blood Urea Nitrogen 16 mg/dL (9-16); Calcium 9.7 mg/dL (8.4-10.2); Carbon Dioxide 27 mmol/L (22-29); Chloride 107 mmol/L (96-108); Creatinine Clr Calc Pharmacy 34.8; Estimated Glomerular Filt Rate 52; Glucose Random 89 mg/dL (60-115); Potassium 3.9 mmol/L (3.3-5.1); Sodium 141 mmol/L (135-145); Total Protein 7.6 g/dL (6.5-8.0); Troponin-I High Sensitivity < 3.5 ng/L (<3.5-17.0)
[2021-11-18] MEDS: Acetaminophen 325 MG TABLET 650 MG PO (18:08)
== END 2021-11-18 19:42 | disposition home or self-care (01) ==
PROVIDERS: Emergency Provider Emergency Medicine
DX: R53.1 Weakness (principal); R42 Dizziness and giddiness; R29.6 Repeated falls
CPT/HCPCS: 36415; 70450; 80048; 80076; 82077; 84484; 85025; 93005; 99284

== ENCOUNTER → 2021-12-21 12:56 | Outpatient (BNVA) | payer MEDICARE, SELFPAY | PROVIDERS: PCP Internal Medicine | DX: R31.9 Hematuria, unspecified (principal) | CPT/HCPCS: 99212 ==

== ENCOUNTER 2022-03-15 14:05 | Outpatient (REF) | payer OTHER, SELFPAY ==
--- NOTE | ~2022-03-15 | US_ITS ---
EXAMINATION: US RETROPERITONEAL LIMITED (RENAL ONLY) CLINICAL INFORMATION: Hematuria, unspecified. COMPARISON: CT abdomen and pelvis with contrast 07/09/2021. XR abdomen KUB 10/16/2020 and 08/23/2020. TECHNIQUE: Real-time imaging of the kidneys. Limited visualization due to bowel gas and body habitus. FINDINGS: RIGHT KIDNEY: 9.5 x 3.2 x 4.3 cm (SAG x AP x TRV). No hydronephrosis. No renal calculi. Limited visualization LEFT KIDNEY: 9.3 x 4.7 x 4.4 cm (SAG x AP x TRV). Multiple tiny echogenic foci characteristic of calcifications, largest midpole 0.3 x 0.2 cm. No hydronephrosis. Limited visualization. US/US renal BI IMPRESSION: Multiple tiny left renal calculi, predominately in the cortex. No hydronephrosis.
== END 2022-03-15 14:06 | disposition home or self-care (01) ==
LOC: HO.US 14:05
DX: R31.9 Hematuria, unspecified (principal)
CPT/HCPCS: 76775

== ENCOUNTER 2022-04-25 21:20 | Emergency (ER) | payer MEDICARE, SELFPAY ==
[2022-04-25 22:25] VITALS: BP 139/98; PULSE 75; RESP 18; TEMP 36.8; O2SAT 97; BMI 24.0
[2022-04-25 22:47] LABS: MANUAL DIFF FLAG NO
[2022-04-25 22:48] LABS: Basophils Percent Auto 0.3 % (0-2); Eosinophils Absolute Auto 0.1 X10*3/uL (0.0-0.4); Eosinophils Percent Auto 1.2 % (0-4); Hematocrit 35.8 % (37.0-47.0); Hemoglobin 11.8 g/dl (12.0-16.0); Imm Gran Abs Auto 0.01 X10*3/uL (0.00-0.03); Imm Gran Pct Auto 0.2 % (0.0-0.4); Lymphocytes Absolute Auto 1.3 X10*3/uL (1.2-4.9); Lymphocytes Percent Auto 21.6 % (20-40); Mean Corpuscular Hemoglobin 28.5 pg (27.0-33.0); Mean Corpuscular Volume 86.5 fL (80.0-98.0); Mean Platelet Volume 9.9 fL (9.4-12.3); Monocytes Absolute Auto 0.6 X10*3/uL (0.1-1.2); Neutrophils Percent Auto 66.7 % (45-73); Platelet Count 195 X10*3/uL (160-400); Red Blood Count 4.14 X10*6/uL (4.20-5.50); Red Cell Distribution Width 14.7 % (11.0-16.0)
[2022-04-25 23:07] LABS: Alanine Aminotransferase 16 U/L (0-31); Albumin Level 4.3 g/dL (3.5-5.0); Alkaline Phosphatase 70 U/L (39-117); Anion Gap 12 (12-20); Aspartate Amino Transferase 20 U/L (5-31); Bilirubin Total 0.3 mg/dL (0.0-1.0); Blood Urea Nitrogen 20 mg/dL (9-16); Calcium 9.9 mg/dL (8.4-10.2); Carbon Dioxide 26 mmol/L (22-29); Chloride 109 mmol/L (96-108); Creatinine Clr Calc Pharmacy 31.5; Estimated Glomerular Filt Rate 45; Glucose Random 130 mg/dL (60-115); Potassium 3.5 mmol/L (3.3-5.1); Sodium 143 mmol/L (135-145); Total Protein 7.9 g/dL (6.5-8.0)
--- NOTE | 2022-04-26 04:15 | ED_ITS ---
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 Patient diagnosed with a hernia and a past history of ulcer. Patient with pain from not eating. MD elicited complaint: abdominal pain Pertinent past history: gastritis Onset (ago): hour(s) Pain Consistency: now resolved Location: RLQ, LLQ and suprapubic Severity: mild Quality: cramping Associated symptoms: denies other symptoms Related Data Home Medications Medication Instructions Recorded Confirmed levothyroxine 75 mcg tablet 1 tab PO DAILY 11/07/20 04/07/21 cholecalciferol (vitamin D3) 25 25 mcg PO DAILY 11/28/20 04/07/21 mcg (1,000 unit) capsule pantoprazole 40 mg tablet,delayed 40 mg PO DAILY 11/28/20 04/07/21 release cholecalciferol (vitamin D3) 50 50 mcg PO DAILY 11/13/21 mcg (2,000 unit) capsule levothyroxine 50 mcg tablet 50 mcg PO DAILY 11/13/21 Previous Rx's Medication Instructions Recorded aluminum-mag hydroxide-simethicone 10 ml PO TID PRN #1 ea 09/03/20 400 mg-400 mg-40 mg/5 mL oral susp (Mylanta Maximum Strength) acetaminophen 325 mg tablet 650 mg PO Q6H PRN #30 tab 09/27/20 (Athenol) sucralfate 100 mg/mL oral 10 ml PO BID 14 Days #280 ml 10/16/20 suspension (Carafate) docusate sodium 100 mg capsule 100 mg PO BID #60 cap 11/08/20 Allergies Allergy/AdvReac Type Severity Reaction Status Date / Time azithromycin [From ZITHROMAX] Allergy Severe GENERIC Verified 04/25/22 22:24 ONLY-SEVERE ABD PAIN, abdominal pain codeine [CODEINE] Allergy Intermediate NAUSEA & Verified 04/25/22 22:24 VOMITING,FAINTED, nausea, vomiting, syncope erythromycin base Allergy Intermediate HIVES, ABD Verified 04/25/22 22:24 [ERYTHROMYCIN BASE] PAIN promethazine [From PHENERGAN] Allergy Intermediate DIZZY / Verified 04/25/22 22:24 NAUSEATED amoxicillin [Prevpac] Allergy Unknown Unknown Verified 04/25/22 22:24 clarithromycin [Prevpac] Allergy Unknown Unknown Verified 04/25/22 22:24 Review of Systems Constitutional: Reports no additional constitutional complaints Eyes: Reports no additional eye complaints Denies dizziness Cardiovascular: Reports no additional cardiovascular complaints Respiratory: Reports as per HPI Gastrointestinal: Reports no additional gastrointestinal complaints Genitourinary: Reports no additional female genitourinary complaints Musculoskeletal: Reports no additional musculoskeletal complaints Skin/Breast: Denies rash Reports system reviewed and no additional complaints, except as documented, Denies dizziness and Denies Sensory deficit (Neuro) Psychiatric: Denies anxiety PMFSH Past Medical History Medical History Anxiety Arthritis Bright red blood per rectum Constipation Dysphagia GERD (gastroesophageal reflux disease) GI bleed Hematuria of unknown cause History of anemia History of colitis Hx of breast cancer Hx of syncope Hypothyroid Weight loss, unintentional Surgical History History of ankle surgery Family History Family History Father No problems noted. 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) Alcohol intake: never Advance Directives: Yes Advance Directives on File: Yes Advance Directives Date on File: 10/20/20 service: No Current occupational status: retired Physical Exam ED Vital Signs: Vital Signs - 24 hr 04/25/22 22:25 Temperature 98.2 F Pulse Rate 75 Respiratory Rate 18 Blood Pressure 139/98 H Pulse Oximetry 97 BMI result Body Mass Index 24.0 Const General: healthy appearing Nutritional Appearance: average body habitus Orientation/consciousness: oriented to person and patient oriented x3 Limitations: no limitations HENMT Head: Yes normal to inspection Ears: external ears normal General nose exam: Normal external nose present Mouth: Normal oral and palatal mucosa present and oropharynx normal Throat: Yes posterior oropharynx normal Eyes General: appearance normal, both eyes and all related structures Neck Neck: Yes normal visual inspection Chest Chest palpation & inspection: normal inspection of the chest Resp Auscultation: clear to auscultation bilaterally Cardio Jugular venous distension: no JVD Rate: regular rate Rhythm: regular rhythm Heart sounds: S1 normal heart sound present and S2 normal heart sound present GI Inspection: Yes normal to inspection Palpation (GI): Soft to palpation, nontender and No hepatosplenomegaly present Auscultation: normal bowel sounds General: Yes no CVA tenderness Back/Spine/Pelvis Back: no CVA tenderness Skin General skin exam: no rashes or lesions noted Neuro General: oriented to person and patient oriented x3 Cranial nerves: Yes CN's II-XII intact bilaterally Motor exam (neuro): 5/5 motor strength present throughout Sensory Exam: No Sensory deficit (Neuro) Extrem General: Yes normal to inspection Psych Appearance: grossly normal Course Reevaluation(s) Reevaluation #1: Patient with soft abdomen, normal labs, she states she is taking her protonix, will encourage to eat frequently Time: 04:22 MDM - Abdominal Pain Lab Data Result diagrams: 04/25/22 22:42 04/25/22 22:42 Labs: Lab Results 04/25/22 04/25/22 Range/Units 22:42 22:42 WBC 6.0 (4.8-10.8) X10*3/uL RBC 4.14 L (4.20-5.50) X10*6/uL Hgb 11.8 L (12.0-16.0) g/dl Hct 35.8 L (37.0-47.0) % MCV 86.5 (80.0-98.0) fL MCH 28.5 (27.0-33.0) pg MCHC 33.0 (31.0-35.0) g/dl RDW 14.7 (11.0-16.0) % Plt Count 195 (160-400) X10*3/uL MPV 9.9 (9.4-12.3) fL Immature Gran % (Auto) 0.2 (0.0-0.4) % Neut % (Auto) 66.7 (45-73) % Lymph % (Auto) 21.6 (20-40) % [place] % (Auto) 10.0 (2-11) % Eos % (Auto) 1.2 (0-4) % Baso % (Auto) 0.3 (0-2) % Lymph # (Auto) 1.3 (1.2-4.9) X10*3/uL [place] # (Auto) 0.6 (0.1-1.2) X10*3/uL Eos # (Auto) 0.1 (0.0-0.4) X10*3/uL Baso # (Auto) 0.0 (0.0-0.2) X10*3/uL Abs Immat Gran (auto) 0.01 (0.00-0.03) X10*3/uL Absolute Neuts (auto) 4.0 (2.0-8.3) x10*3/uL Absolute Nucleated RBC 0.000 (0.0-0.012) X10*3/uL Nucleated RBC % (auto) 0.0 (0.0-0.2) /100WBC Sodium 143 (135-145) mmol/L Potassium 3.5 (3.3-5.1) mmol/L Chloride 109 H (96-108) mmol/L Carbon Dioxide 26 (22-29) mmol/L Anion Gap 12 (12-20) BUN 20 H (9-16) mg/dL Creatinine 1.16 (0.5-1.4) mg/dL Estim Creat Clear Calc 31.5 Estimated GFR 45 Random Glucose 130 H (60-115) mg/dL Calcium 9.9 (8.4-10.2) mg/dL Total Bilirubin 0.3 (0.0-1.0) mg/dL AST 20 (5-31) U/L ALT 16 (0-31) U/L Alkaline Phosphatase 70 (39-117) U/L Total Protein 7.9 (6.5-8.0) g/dL Albumin 4.3 (3.5-5.0) g/dL Discharge Plan Discharge Clinical Impression: Abdominal pain, Gastritis Patient Disposition: Home, Self-Care Instructions: Gastritis (ED) Prescriptions: No Action alum-mag hydroxide-simeth [Mylanta Maximum Strength] 400-400-40 mg/5 mL suspension 10 ml PO TID PRN (Reason: indigestion) Qty: 1 0RF acetaminophen [Athenol] 325 mg tablet 650 mg PO Q6H PRN (Reason: fever or pain) Qty: 30 0RF levothyroxine 75 mcg tablet 1 tab PO DAILY 0RF docusate sodium 100 mg capsule 100 mg PO BID Qty: 60 0RF sucralfate [Carafate] 100 mg/mL suspension 10 ml PO BID 14 Days Qty: 280 0RF pantoprazole 40 mg tablet,delayed release (DR/EC) 40 mg PO DAILY 0RF cholecalciferol (vitamin D3) 25 mcg (1,000 unit) capsule 25 mcg PO DAILY 0RF cholecalciferol (vitamin D3) 50 mcg (2,000 unit) capsule 50 mcg PO DAILY 0RF levothyroxine 50 mcg tablet 50 mcg PO DAILY 0RF Referrals: Physician,Unknown J [Primary Care Provider] - 1 week
== END 2022-04-26 04:52 | disposition home or self-care (01) ==
PROVIDERS: Emergency Provider Emergency Medicine
DX: K29.70 Gastritis, unspecified, without bleeding (principal); R10.32 Left lower quadrant pain; Z79.899 Other long term (current) drug therapy
CPT/HCPCS: 36415; 80053; 85025; 99283

== ENCOUNTER → 2022-05-28 07:26 | Outpatient (BNVA) | payer OTHER, SELFPAY | PROVIDERS: PCP Internal Medicine; Referring Provider Internal Medicine; Visit Provider Internal Medicine Gastroenterology | DX: R10.13 Epigastric pain (principal); K59.09 Other constipation | CPT/HCPCS: 99212 ==

== ENCOUNTER 2022-05-31 11:22 | Outpatient (REF) | payer OTHER, SELFPAY ==
--- NOTE | ~2022-05-31 | MM_ITS ---
EXAMINATION: MM SCREENING DIGITAL BREAST TOMOSYNTHESIS, RIGHT CLINICAL INFORMATION: Personal history left breast cancer status post mastectomy, 1986. Due for yearly. COMPARISON: Mammography: 07/06/2015, 07/07/2014, 06/09/2014 (baseline), right breast ultrasound 07/17/2014 TECHNIQUE: Digital breast tomosynthesis is performed in both the craniocaudal and mediolateral oblique views along with computer-aided detection (CAD). Synthesized 2D images are generated from the tomosynthesis. FINDINGS: There are scattered areas of fibroglandular density (ACR BI-RADS breast composition Category b). Parenchymal pattern is similar to prior studies. There is no interval mass or architectural abnormality or developing density. Benign oval asymmetry posterior outer right breast is stable from new baseline 2013. There are some scattered vascular calcifications. The axilla and skin contours are unremarkable. MM/MM tomosynthesis screening RT IMPRESSION: No mammographic evidence of malignancy. ASSESSMENT: BI-RADS 2: Benign RECOMMENDATION: Routine annual mammography screening. This patient's information was entered into a reminder system with a target due date for their next mammogram.
--- NOTE | ~2022-05-31 | MM_ITS ---
EXAMINATION: BONE DENSITOMETRY CLINICAL INDICATION: Age-related osteoporosis without current pathological fracture. COMPARISON: Baseline BD dated 01/24/2017. TECHNIQUE: Using a [employer] DXA System (software version: 13.1) manufactured by [employer], dual-energy x-ray absorptiometry was performed of the lumbar spine and left hip. The images are of good technical quality. Summary results are attached. FINDINGS: AP SPINE L1-L4: Current: BMD 0.884 g/cm2, Z-score -0.7, T-score -2.5, osteoporosis, 8.2% decrease from baseline (<5% change is not significant). Baseline: BMD 0.817 g/cm2. LEFT FEMUR, NECK: Current: BMD 0.666 g/cm2, Z-score -0.5, T-score -2.7, osteoporosis. Baseline: BMD 0.674 g/cm2. LEFT FEMUR, TOTAL: Current: BMD 0.685 g/cm2, Z-score -0.6, T-score -2.6, osteoporosis, 3.8% increase from baseline (<5% change is not significant). Baseline: BMD 0.660 g/cm2. IDENTIFIED RISK FACTORS: Secondary osteoporosis, menopause, history of fracture (adult). HISTORY OF FRACTURE: Other. MEDICATIONS: Calcium supplements or multivitamin, vitamin D. MM/XR DEXA axial skeleton IMPRESSION: 1. DIAGNOSIS: Osteoporosis based on the lowest T-score value of -2.7 in the femoral neck applying World Health Organization criteria. 2. 10-YEAR FRACTURE RISK PREDICTION, FRAX: According to the guidelines, FRAX calculation should only be performed on patients in the osteopenia bone density category. Therefore, FRAX was not performed on this patient. 3. Treatment Recommendations: NOF guidelines recommend consideration for treatment in postmenopausal women and men age 50 and older presenting with the following: -A hip or vertebral (clinical or morphometric) fracture. -T-score less than or equal to -2.5 at the femoral neck or spine after appropriate evaluation to exclude secondary causes. -Low bone mass at the hip or spine and a 10-year fracture probability by FRAX of greater than or equal to 3% for hip fracture or greater than or equal to 20% for major osteoporotic fracture based on the [place] adapted WHO algorithm. 4. Other Recommendations: All treatment decisions require clinical judgment and consideration of individual patient factors, including patient preferences, comorbidities, previous drug use, risk factors not captured in the FRAX model (e.g. frailty, falls, vitamin D deficiency, increased bone turnover, interval significant decline in bone density) and possible under or overestimation of fracture risk by FRAX. Additional medical evaluation for secondary cause of low bone mineral density may be appropriate. FUTURE SCAN RECOMMENDATION: People with diagnosed cases of osteoporosis or at high risk for fracture should have regular bone mineral density tests. For patients eligible for Medicare, routine testing is allowed once every 2 years. The testing frequency can be increased to one year for patients who have rapidly progressing disease, those who are receiving or discontinuing medical therapy to restore bone mass, or have additional risk factors.
== END 2022-05-31 11:23 | disposition home or self-care (01) ==
LOC: HO.MAMMO 11:22
PROVIDERS: Visit Provider Internal Medicine
DX: Z12.31 Encounter for screening mammogram for malignant neoplasm of breast (principal); Z85.3 Personal history of malignant neoplasm of breast; Z90.10 Acquired absence of unspecified breast and nipple; M81.0 Age-related osteoporosis without current pathological fracture; Z78.0 Asymptomatic menopausal state
CPT/HCPCS: 77063; 77067; 77080

== ENCOUNTER 2022-06-12 07:23 | Day surgery (SDC) | payer OTHER, SELFPAY ==
--- NOTE | 2022-06-11 09:59 | P.CONAN_ITS ---
Documented by User: Meri Burch NP 06/11/22 10:01 HPI - Anesthesia Eval Consult details Narrative: 82yo F for Sigmoidoscopy Flexible, Upper Endoscopy [facility] Active Problems Active Problems: All Active Problems (Updated 05/28/22 @ 08:13 by Apryl Vail MD) Epigastric pain (Acute) Chronic constipation (Acute) Hematuria of unknown cause (Acute) Breast cancer in female (Acute) Colon cancer screening (Acute) Stercoral ulcer of rectum (Acute) Colitis (Acute) Past Medical History Medical History Anxiety Arthritis Bright red blood per rectum Constipation Dysphagia GERD (gastroesophageal reflux disease) GI bleed Hematuria of unknown cause History of anemia History of colitis Hx of breast cancer Hx of syncope Hypothyroid Weight loss, unintentional Family History Family History Father No problems noted. 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) Alcohol intake: never Advance Directives: Yes Advance Directives on File: Yes Advance Directives Date on File: 10/20/20 service: No Current occupational status: retired Meds Allergies Allergy/AdvReac Type Severity Reaction Status Date / Time azithromycin [From ZITHROMAX] Allergy Severe GENERIC Verified 05/28/22 07:31 ONLY-SEVERE ABD PAIN, abdominal pain codeine [CODEINE] Allergy Intermediate NAUSEA & Verified 05/28/22 07:31 VOMITING,FAINTED, nausea, vomiting, syncope erythromycin base Allergy Intermediate HIVES, ABD Verified 05/28/22 07:31 [ERYTHROMYCIN BASE] PAIN promethazine [From PHENERGAN] Allergy Intermediate DIZZY / Verified 05/28/22 07:31 NAUSEATED amoxicillin [Prevpac] Allergy Unknown Unknown Verified 05/28/22 07:31 clarithromycin [Prevpac] Allergy Unknown Unknown Verified 05/28/22 07:31 Home Medications Medication Instructions Recorded Confirmed Last Taken Type pantoprazole 40 mg tablet,delayed 40 mg PO DAILY 11/28/20 05/28/22 Unknown History release cholecalciferol (vitamin D3) 50 50 mcg PO DAILY 11/13/21 05/28/22 Unknown History mcg (2,000 unit) capsule levothyroxine 50 mcg tablet 50 mcg PO DAILY 11/13/21 05/28/22 Unknown History famotidine 20 mg tablet 20 mg PO DAILY 05/28/22 05/28/22 Unknown History Exam Exam Date and Time: June 11, 2022 0959 Pertinent Lab Results Pertinent Lab Results: Laboratory Tests 04/25/22 04/25/22 22:42 22:42 WBC 6.0 Hgb 11.8 L Hct 35.8 L Plt Count 195 Sodium 143 Potassium 3.5 Chloride 109 H Carbon Dioxide 26 BUN 20 H Creatinine 1.16 Narrative Narrative: EKG 11/2021 Vent. Rate : 059 BPM ? ? Atrial Rate : 059 BPM ?? P-R Int : 200 ms? QRS Dur : 088 ms ? ? QT Int : 440 ms ? ? ? P-R-T Axes : 083 008 041 degrees ?? QTc Int : 435 ms ? Sinus bradycardia with sinus arrhythmia Septal infarct (cited on or before 20-AUG-2020) Abnormal ECG When compared with ECG of 08-NOV-2020 07:34, No significant change was found Assessment and Plan Assessment Anesthesia Assessment: Chart Reviewed Documented by User: Brianna Ramírez MD 06/12/22 08:28 [facility] Active Problems Active Problems: All Active Problems (Updated 05/28/22 @ 08:13 by Apryl Vail MD) Epigastric pain (Acute) Chronic constipation (Acute) Hematuria of unknown cause (Acute) Breast cancer in female S/p Left mastectomy and lymph nodes Colon cancer screening (Acute) Stercoral ulcer of rectum (Acute) Colitis (Acute) Hypothyroidism Past Medical History Medical History Anxiety Arthritis Bright red blood per rectum Constipation Dysphagia GERD (gastroesophageal reflux disease) GI bleed Hematuria of unknown cause History of anemia History of colitis Hx of breast cancer Hx of syncope Hypothyroid Weight loss, unintentional Family History Family History Father No problems noted. 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) Alcohol intake: never Advance Directives: Yes Advance Directives on File: Yes Advance Directives Date on File: 10/20/20 service: No Current occupational status: retired [employer] Allergies Allergy/AdvReac Type Severity Reaction Status Date / Time azithromycin [From ZITHROMAX] Allergy Severe GENERIC Verified 05/28/22 07:31 ONLY-SEVERE ABD PAIN, abdominal pain codeine [CODEINE] Allergy Intermediate NAUSEA & Verified 05/28/22 07:31 VOMITING,FAINTED, nausea, vomiting, syncope erythromycin base Allergy Intermediate HIVES, ABD Verified 05/28/22 07:31 [ERYTHROMYCIN BASE] PAIN promethazine [From PHENERGAN] Allergy Intermediate DIZZY / Verified 05/28/22 07:31 NAUSEATED amoxicillin [Prevpac] Allergy Unknown Unknown Verified 05/28/22 07:31 clarithromycin [Prevpac] Allergy Unknown Unknown Verified 05/28/22 07:31 Home Medications Medication Instructions Recorded Confirmed Last Taken Type pantoprazole 40 mg tablet,delayed 40 mg PO DAILY 11/28/20 05/28/22 Unknown History release cholecalciferol (vitamin D3) 50 50 mcg PO DAILY 11/13/21 05/28/22 Unknown History mcg (2,000 unit) capsule levothyroxine 50 mcg tablet 50 mcg PO DAILY 11/13/21 05/28/22 Unknown History famotidine 20 mg tablet 20 mg PO DAILY 05/28/22 05/28/22 Unknown History Exam Height,Weight and Vital Signs: Height 5 ft 5 in Weight 56.699 kg Vital Signs Temp Pulse Resp BP Pulse Ox O2 Del Method 06/12/22 08:05 97.2 F 65 16 158/74 H 97 Room Air Airway Mallampati Class: II (Small mouth) TM Dist: >3cm Neck ROM: Full Loose/Missing/Broken Teeth: Yes (Edentulous) Heart: RRR Lungs: CTAB Assessment and Plan Assessment Anesthesia Assessment: Anesthesia Plan Discussed Final Anesthetic Review Family History of Problems with Anesthesia: No History of Problems with Anesthesia: No NPO: Yes ASA Class: III Final Preanesthetic Review: No Changes in Pt Med Stat, Meds/Allgs Chart Reviewed, Consent Obtained/Reviewed and Anes Risks/Benef Reviewed Patient Risk: Intermediate Procedure Risk: Low Assessment/Block/Sedation in SS: Assess/Block/Sedation-SS Anesthetic Plan Anesthetic Plan: MAC: Disposition: Standard PACU
[2022-06-12 08:05] VITALS: BP 158/74; PULSE 65; RESP 16; TEMP 36.2; O2SAT 97
[2022-06-12 08:09] VITALS: BMI 20.7
[2022-06-12] MEDS: Lactated Ringers 1,000 ML 100 ML IVCONT (08:27)
--- NOTE | 2022-06-12 09:20 | MHC.SHP ---
Pre-Procedural Eval Section A Date of Service: 06/12/22 The patient is an INPATIENT: No Changes since office visit: Yes Patient answered all questions; No Cold of Flu in the past 2 weeks, No New Medical Problems and No Changes in Medication The History & Physical has been completed within 30 days and I have reviewed it.: Yes Section B Chief Complaint: constipation,epigastric pain Allergies: Allergies Allergy/AdvReac Type Severity Reaction Status Date / Time azithromycin [From ZITHROMAX] Allergy Severe GENERIC Verified 05/28/22 07:31 ONLY-SEVERE ABD PAIN, abdominal pain codeine [CODEINE] Allergy Intermediate NAUSEA & Verified 05/28/22 07:31 VOMITING,FAINTED, nausea, vomiting, syncope erythromycin base Allergy Intermediate HIVES, ABD Verified 05/28/22 07:31 [ERYTHROMYCIN BASE] PAIN promethazine [From PHENERGAN] Allergy Intermediate DIZZY / Verified 05/28/22 07:31 NAUSEATED amoxicillin [Prevpac] Allergy Unknown Unknown Verified 05/28/22 07:31 clarithromycin [Prevpac] Allergy Unknown Unknown Verified 05/28/22 07:31 Plan I have reviewed the history and physical and performed a pertinent physical examination on my patient. No changes have occurred unless specified.
[2022-06-12] MEDS: Sodium Phosphate,Mono-Dibasic 133 ML ENEMA PR (09:21)
--- NOTE | 2022-06-12 09:22 | PM.OP ---
Brief Operative Note Date of Service: 06/12/22 Pre-op diagnosis: GERD, abdominal pain Post-op diagnosis: other (GERD, gastritis) Procedure: FLEXIBLE TRANSORAL UPPER GASTROINTESTINAL ENDOSCOPY WITH BIOPSIES AND COLONOSCOPY TILL CECUM WITH UPPER ENDOSCOPY Consent: Indications for the procedure and potential complications of bleeding, perforation, reaction to medications and missed diagnosis were discussed with the patient with the help of a Italian delicatessen slicer and informed consent was obtained. Instrument: Olympus GIF H 190 mid size upper endoscope Monitoring: Vital signs and clinical assessment, continuous EKG monitoring, Pulse oximetry, Carbon Dioxide monitoring and blood pressure monitoring were done throughout the procedure. Procedure: The patient was placed in the left lateral decubitis position and pre-procedure medications were administered and a bite block was placed. The endoscope was inserted into the mouth and advanced under direct vision to the third part of duodenum. A careful inspection was made as the upper endoscope was withdrawn including a retroflexed examination of the proximal stomach; Findings and interventions are described below. Findings: Larynx: Normal Esophagus: Mildly tortuous esophagus with increased tertiary contractions without stricture or ring. GE junction at 40 cms. Mild focal esophagitis at GE junction. No Torres's. Stomach: Moderate diffuse gastric erythema with prominent gastric folds - biopsied. A few 3-5 mm benign-appearing polyps in the gastric body - biopsied. Antral biopsies were obtained to check for H pylori. Grade 2 flap valve on retroflexed examination of the cardia. Duodenum: Normal bulb and descending duodenum. Biopsies were obtained from 3rd part of the duodenum to check for celiac sprue Intervention: Biopsies as noted above FLEXIBLE SIGMOIDOSCOPY PROCEDURE NOTE Consent: Indications for the procedure and potential complications of bleeding, perforation, reaction to medications and missed diagnosis were discussed with the patient and informed consent was obtained. Instrument: Olympus PCF H 190 L variable stiffness pediatric colonoscope Monitoring: Vital signs and clinical assessment, intermittent blood pressure monitoring, continuous EKG monitoring, Pulse oximetry and Carbon Dioxide monitoring were done throughout the procedure. Procedure: The patient was placed in the left lateral decubitis position and pre-procedure medications were administered. After a digital rectal examination of the ano-rectum, the video colonoscope was inserted into the rectum and advanced through the colon to 50 cms into the descending colon. The colonoscope was slowly withdrawn in a retrograde panoramic fashion and the colon mucosa was carefully examined including a retroflexed view of the rectum. Findings and interventions are described below. Procedure Difficulty: : Without difficulty Findings: Sigmoid Colon: Moderate to severe diverticulosis with luminal narrowing Rectum: Normal mucosa - ulcers seen on past colonoscopy healed completely Ano-rectum: Moderate internal hemorrhoids Colon preparation: Good Impression and Post Procedure Diagnosis: Endoscopy Findings: ESOPHAGUS: Mildly tortuous esophagus with increased tertiary contractions without stricture or ring. GE junction at 40 cms. Mild focal esophagitis at GE junction. No Torres's. STOMACH: Moderate diffuse gastric erythema with prominent gastric folds - biopsied. A few 3-5 mm benign-appearing polyps in the gastric body - biopsied. Antral biopsies were obtained to check for H pylori. DUODENUM: Normal bulb and descending duodenum. Biopsies were obtained from 3rd part of the duodenum to check for celiac sprue Colonoscopy Findings: No polyps were detected. Normal rectal mucosa - ulcers seen on past colonoscopy healed completely Moderate diverticulosis seen in the sigmoid colon Moderate hemorrhoids on retroflexed exam. Plan: Await pathology results Patient has an appointment on 11/01/22 in the GI Clinic with Apryl Vail M.D. Repeat Colonoscopy interval based on path results - in 3-5 years if polyps are adenomatous and 10 years if polyps are hyperplastic. Above findings were reviewed with the patient and GERD and diverticulosis handouts were given in the discharge area Surgeon: Apryl Vail MD Anesthesia: MAC Was an Fitness Assistant used for this Procedure?: Yes Fitness Assistant: Shannan Anders Estimated blood loss (mL): 0 Pathology: other (A. small bowel bxs, R.O celiac B. gastric antrum bxs, R/O H. pylori C. gastric body bxs D. gastric polyps) Condition: stable Disposition: PACU
[2022-06-12 10:02] VITALS: BP 110/55; PULSE 74; RESP 16; TEMP 36.6; O2SAT 99
[2022-06-12 10:17] VITALS: BP 115/59; PULSE 66; RESP 16; O2SAT 95
[2022-06-12 10:32] VITALS: BP 125/66; PULSE 68; RESP 16; TEMP 36.6; O2SAT 95
--- NOTE | 2022-06-12 17:15 | W.PM.OPN ---
Operative Note Operative Note Date of Service: 06/12/22 Narrative: Pre-op diagnosis: GERD, abdominal pain Post-op diagnosis:?other (GERD, gastritis) Procedure: FLEXIBLE TRANSORAL UPPER GASTROINTESTINAL ENDOSCOPY WITH BIOPSIES AND COLONOSCOPY TILL CECUM WITH UPPER ENDOSCOPY Consent:?Indications for the procedure and potential complications of bleeding, perforation, reaction to medications and missed diagnosis were discussed with the patient with the help of a Citizen Of [place] ibm bpm developer and informed consent was obtained. Instrument:?Olympus GIF H 190 mid size upper endoscope Monitoring: Vital signs and clinical assessment, continuous EKG monitoring, Pulse oximetry, Carbon Dioxide monitoring and blood pressure monitoring were done throughout the procedure. Procedure:?The patient was placed in the left lateral decubitis position and pre-procedure medications were administered and a bite block was placed. The endoscope was inserted into the mouth and advanced under direct vision to the third part of duodenum. A careful inspection was made as the upper endoscope was withdrawn including a retroflexed examination of the proximal stomach; Findings and interventions are described below. Findings: Larynx:? Normal Esophagus:?Mildly tortuous esophagus with increased tertiary contractions without stricture or ring. GE junction at 40 cms. Mild focal esophagitis at GE junction.? No Torres's. Stomach:?Moderate diffuse gastric erythema with prominent gastric folds - biopsied.? A few 3-5 mm benign-appearing polyps in the gastric body - biopsied. Antral biopsies were obtained to check for H pylori. Grade 2 flap valve on retroflexed examination of the cardia. Duodenum:?Normal bulb and descending duodenum. Biopsies were obtained from 3rd part of the duodenum to check for celiac sprue Intervention:?Biopsies as noted above FLEXIBLE SIGMOIDOSCOPY PROCEDURE NOTE Consent:?Indications for the procedure and potential complications of bleeding, perforation, reaction to medications and missed diagnosis were discussed with the patient and informed consent was obtained. Instrument:?Olympus PCF H 190 L variable stiffness pediatric colonoscope Monitoring:?Vital signs and clinical assessment, intermittent blood pressure monitoring, continuous EKG monitoring, Pulse oximetry and Carbon Dioxide monitoring were done throughout the procedure. Procedure:?The patient was placed in the left lateral decubitis position and pre-procedure medications were administered. After a digital rectal examination of the ano-rectum, the video colonoscope was inserted into the rectum and advanced through the colon to 50 cms into the descending colon.? The colonoscope was slowly withdrawn in a retrograde panoramic fashion and the colon mucosa was carefully examined including a retroflexed view of the rectum. Findings and interventions are described below. Procedure Difficulty:?: Without difficulty Findings: Sigmoid Colon:??Moderate to severe diverticulosis with luminal narrowing Rectum:??Normal mucosa - ulcers seen on past colonoscopy healed completely Ano-rectum:??Moderate internal hemorrhoids Colon preparation:? Good? Impression and Post Procedure Diagnosis: Endoscopy Findings: ESOPHAGUS: Mildly tortuous esophagus with increased tertiary contractions without stricture or ring. GE junction at 40 cms. Mild focal esophagitis at GE junction.? No Torres's. STOMACH: Moderate diffuse gastric erythema with prominent gastric folds - biopsied.? A few 3-5 mm benign-appearing polyps in the gastric body - biopsied. Antral biopsies were obtained to check for H pylori. DUODENUM: Normal bulb and descending duodenum. Biopsies were obtained from 3rd part of the duodenum to check for celiac sprue Colonoscopy Findings: No polyps were detected. Normal rectal mucosa - ulcers seen on past colonoscopy healed completely Moderate diverticulosis seen in the sigmoid colon Moderate hemorrhoids on retroflexed exam. Plan: Await pathology results Patient has an appointment on 11/01/22 in the GI Clinic with Apryl Vail M.D. Repeat Colonoscopy interval based on path results - in 3-5 years if polyps are adenomatous and 10 years if polyps are hyperplastic. Above findings were reviewed with the patient and GERD and diverticulosis handouts were given in the discharge area Surgeon: Apryl Vail MD Anesthesia:?MAC Was an Veteran Appeals Reviewer used for this Procedure?:?Yes Veteran Appeals Reviewer:?Shannan Anders Estimated blood loss (mL):?0 Pathology:?other (A. small bowel bxs, R.O celiac? B. gastric antrum bxs, R/O H. pylori? C. gastric body bxs? D. gastric polyps) Condition:?stable Disposition:?PACU
== END 2022-06-12 11:32 | disposition home or self-care (01) ==
PROVIDERS: Visit Provider Internal Medicine Gastroenterology
PROC: 0DJD8ZZ Inspection of Lower Intestinal Tract, Via Natural or Artificial Opening Endoscopic (ICD-10-PCS; CPT 45330; principal; 2022-06-12 08:30)
DX: R10.13 Epigastric pain (principal); K57.30 Diverticulosis of large intestine without perforation or abscess without bleeding; K64.8 Other hemorrhoids; K59.09 Other constipation; K21.00 Gastro-esophageal reflux disease with esophagitis, without bleeding; K21.9 Gastro-esophageal reflux disease without esophagitis; K29.50 Unspecified chronic gastritis without bleeding; K31.7 Polyp of stomach and duodenum; Z87.11 Personal history of peptic ulcer disease
CPT/HCPCS: 45330; 43239; 88305; 88342

== ENCOUNTER 2022-07-02 10:01 | Emergency (ER) | payer OTHER, SELFPAY ==
--- NOTE | ~2022-07-02 | CT_ITS ---
EXAMINATION: CT ABDOMEN AND PELVIS WITHOUT CONTRAST CLINICAL INFORMATION: nausea, distention, tenderness entire abd COMPARISON: CT scans between July 09, 2021 and February 01, 2012 TECHNIQUE: Multidetector volumetric imaging was performed from the superior aspect of the liver through the pubic symphysis. Sagittal and coronal reformatted images were obtained on the technologist's workstation. This CT examination was performed using dose optimization techniques as appropriate, variously including the following: *Automated exposure control *Adjustment of mA and/or kV according to patient size (this includes techniques or standardized protocols for targeted exams where dose is matched to indication/reason for exam; i.e. extremities or head) *Use of iterative reconstruction technique DLP: 455 mGy-cm FINDINGS: Limited by motion artifact as well as by lack of oral and intravenous contrast. LUNG BASES: The lung bases appear clear, with no evidence of inflammation or nodules. LIVER, GALLBLADDER, AND BILIARY TREE: The liver appears unremarkable in size, shape, and attenuation. No focal hepatic lesion or biliary ductal dilatation is appreciated. Status post cholecystectomy. PANCREAS: Unremarkable SPLEEN: Unremarkable ADRENAL GLANDS: Unremarkable KIDNEYS AND URETERS: Mild fullness of the right renal collecting system and proximal hydroureter, unchanged. Subcentimeter benign bilateral simple renal cysts for which no further dedicated imaging is indicated. The kidneys appear unremarkable in size, shape, and attenuation. No hydronephrosis, hydroureter, or calculi seen. BLADDER: Unremarkable GASTROINTESTINAL TRACT: Approximately 2 cm duodenal diverticulum without evidence of associated inflammation. Unremarkable appearance of the remainder of the stomach, small bowel, and large bowel. No diverticulosis. Normal-appearing distal ileum and vermiform appendix. ABDOMINAL WALL: No significant hernia is appreciated. LYMPH NODES: No evidence of adenopathy by size criteria. VASCULAR: Unremarkable PELVIC VISCERA: Unremarkable OSSEOUS STRUCTURES: Mild compression deformity of L1, unchanged compared with most recent prior. CT/CT abdomen pelvis wo con IMPRESSION: Limited study. No gross acute radiographic finding.
[2022-07-02 10:10] VITALS: BP 154/72; BP 167/78; PULSE 75; RESP 16; TEMP 36.9; O2SAT 95; O2SAT 97; BMI 23.5
[2022-07-02 10:17] VITALS: BP 154/72; PULSE 75; RESP 16; TEMP 36.9; O2SAT 95
--- NOTE | 2022-07-02 10:36 | ED.NAVMDI ---
HPI - Nausea/Vomiting/Diarrhea General Chief complaint: Nausea/Vomiting/Diarrhea Stated complaint: nausea/vomiting x1day Time Seen by Provider: 07/02/22 10:19 Source: patient Mode of arrival: ambulatory Limitations: no limitations History of Present Illness HPI Narrative: 82-year-old female with a history of chronic abdominal pain, chronic nausea, hx colitis, s/p cholecystectomy, hx breast cancer s/p mastectomy, GERD, hx diverticulosis & hemorrhoids on recent colonoscopy last month who presents to the ER with nausea for the last 1 week. She reports she has been suffering from nausea on and off for several years. She follows with a GI doctor in just had an EGD and colonoscopy done last month that was reportedly unremarkable. She has been trying recently prescribed Zofran with minimal relief. She denies any vomiting just complains of persistent nausea. She was able to eat some cereal this morning without any vomiting. Her last bowel movement was yesterday and was normal. She is passing flatus. No abdominal pain. No bloody stools. MD elicited complaint: nausea Onset (ago): week(s) Associated nausea: Yes Associated abdominal pain: No Location of pain: none Pain consistency: constant Exacerbating factors: eating Relieving factors: none Associated symptoms: denies other symptoms Related Data Home Medications Medication Instructions Recorded Confirmed pantoprazole 40 mg tablet,delayed 40 mg PO DAILY 11/28/20 05/28/22 release cholecalciferol (vitamin D3) 50 50 mcg PO DAILY 11/13/21 05/28/22 mcg (2,000 unit) capsule levothyroxine 50 mcg tablet 50 mcg PO DAILY 11/13/21 05/28/22 famotidine 20 mg tablet 20 mg PO DAILY 05/28/22 05/28/22 Previous Rx's Medication Instructions Recorded aluminum-mag hydroxide-simethicone 10 ml PO TID PRN indigestion #1 ea 09/03/20 400 mg-400 mg-40 mg/5 mL oral susp (Mylanta Maximum Strength) acetaminophen 325 mg tablet 650 mg PO Q6H PRN fever or pain 09/27/20 (Athenol) #30 tabs sucralfate 100 mg/mL oral 10 ml PO BID 14 days #280 mL 10/16/20 suspension (Carafate) dicyclomine 10 mg capsule 10 mg PO TID PRN abd pain 30 days 05/28/22 #30 caps docusate sodium 100 mg capsule 100 mg PO BID 30 days #60 caps 05/28/22 prochlorperazine maleate 10 mg 10 mg PO Q8H PRN nausea and 07/02/22 tablet (Compazine) vomiting #10 tabs Allergies Allergy/AdvReac Type Severity Reaction Status Date / Time azithromycin [From ZITHROMAX] Allergy Severe GENERIC Verified 05/28/22 07:31 ONLY-SEVERE ABD PAIN, abdominal pain codeine [CODEINE] Allergy Intermediate NAUSEA & Verified 05/28/22 07:31 VOMITING,FAINTED, nausea, vomiting, syncope erythromycin base Allergy Intermediate HIVES, ABD Verified 05/28/22 07:31 [ERYTHROMYCIN BASE] PAIN promethazine [From PHENERGAN] Allergy Intermediate DIZZY / Verified 05/28/22 07:31 NAUSEATED amoxicillin [Prevpac] Allergy Unknown Unknown Verified 05/28/22 07:31 clarithromycin [Prevpac] Allergy Unknown Unknown Verified 05/28/22 07:31 Review of Systems Review of Systems: Constitutional: No Fever, No Chills ENT/Mouth: No sore throat, No Rhinorrhea, No Swallowing Difficulty Eyes: No Eye Pain, No Swelling, No Redness Cardiovascular: No Chest Pain, No SOB, No Orthopnea, No Edema Respiratory: No Cough, No Sputum, No Wheezing, No dyspnea Gastrointestinal: + Nausea, No Vomiting, No Diarrhea, No abdominal Pain, No Hematochezia, No Melena Genitourinary: No Dysuria, No Urinary Frequency, No Hematuria Musculoskeletal: No joint pain, No Myalgias Skin: No Skin Lesions, No rash Neuro: No Weakness, No Numbness, No Dizziness, No Headache Psych: + Anxiety/Panic, No Depression Heme/Lymph: No Bruising, No Lymphadenopathy Endocrine: No Polyuria, No Polydipsia Gastrointestinal: Gastrointestinal: Reports nausea PMFSH Past Medical History Medical History (Updated 07/02/22 @ 13:02 by MAURISIO Andrade) Anxiety Arthritis Bright red blood per rectum Constipation Dysphagia GERD (gastroesophageal reflux disease) GI bleed Hematuria of unknown cause History of anemia History of colitis Hx of breast cancer Hx of syncope Hypothyroid Weight loss, unintentional Surgical History (Updated 06/12/22 @ 08:24 by Brianna Ramírez MD) H/O left mastectomy History of ankle surgery Family History Family History Father No problems noted. 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 Oriented X3. No acute distress. Eyes: Pupils equal, round and reactive to light. ENT: Pharynx normal. Neck: Normal inspection. Neck supple. CVS: Normal heart rate and rhythm. Pulses normal. Respiratory: No respiratory distress. Breath sounds normal. Abdomen: Softly distended and nontender. umbilical stone present. dullness to percussion, normal +BS x4 Skin: Skin warm and dry. Normal skin color. Normal skin turgor. No rashes. Extremities: No lower extremity edema. Neuro: Oriented X 3. No motor deficit. No sensory deficit. Course Course Course Narrative: 82-year-old female with a history colitis, diverticulosis, hemorrhoids, breast cancer status post mastectomy, who presents to the ER for evaluation of acute on chronic nausea. No vomiting or diarrhea. Her abdomen is softly distended. Her lab workup today is unremarkable. She states she cannot eat because of the nausea, although did tolerate breakfast this morning. It did make her nausea worse. Given her history of colitis and diverticulosis will get CT scan for further evaluation. Reevaluation(s) Reevaluation #1: CT scan is grossly unremarkable. She is tolerating to drilling crackers. She would like to be discharged home. Will give trial of Compazine given that her Zofran isn't working for her. She was encourage follow-up with her GI doctor as well as her primary care doctor. She is stable for discharge home. MDM - Nausea/Vomiting/Diarrhea Lab Data Result diagrams: 07/02/22 11:15 07/02/22 11:15 Labs: Lab Results 07/02/22 07/02/22 07/02/22 Range/Units 10:41 11:15 11:15 WBC 4.8 (4.8-10.8) X10*3/uL RBC 4.42 (4.20-5.50) X10*6/uL Hgb 12.3 (12.0-16.0) g/dl Hct 38.3 (37.0-47.0) % MCV 86.7 (80.0-98.0) fL MCH 27.8 (27.0-33.0) pg MCHC 32.1 (31.0-35.0) g/dl RDW 15.1 (11.0-16.0) % Plt Count 197 (160-400) X10*3/uL MPV 9.5 (9.4-12.3) fL Immature Gran % (Auto) 0.4 (0.0-0.4) % Neut % (Auto) 64.7 (45-73) % Lymph % (Auto) 21.7 (20-40) % [place] % (Auto) 11.4 H (2-11) % Eos % (Auto) 1.2 (0-4) % Baso % (Auto) 0.6 (0-2) % Lymph # (Auto) 1.1 L (1.2-4.9) X10*3/uL [place] # (Auto) 0.6 (0.1-1.2) X10*3/uL Eos # (Auto) 0.1 (0.0-0.4) X10*3/uL Baso # (Auto) 0.0 (0.0-0.2) X10*3/uL Abs Immat Gran (auto) 0.02 (0.00-0.03) X10*3/uL Absolute Neuts (auto) 3.1 (2.0-8.3) x10*3/uL Absolute Nucleated RBC 0.000 (0.0-0.012) X10*3/uL Nucleated RBC % (auto) 0.0 (0.0-0.2) /100WBC Sodium 142 (135-145) mmol/L Potassium 4.0 (3.3-5.1) mmol/L Chloride 106 (96-108) mmol/L Carbon Dioxide 29 (22-29) mmol/L Anion Gap 11 L (12-20) BUN 21 H (9-16) mg/dL Creatinine 1.00 (0.5-1.4) mg/dL Estim Creat Clear Calc 42.8 Estimated GFR 53 Random Glucose 110 (60-115) mg/dL Calcium 9.7 (8.4-10.2) mg/dL Magnesium 2.1 (1.6-2.6) mg/dL Total Bilirubin 0.3 (0.0-1.0) mg/dL Direct Bilirubin < 0.2 (0.0-0.5) mg/dL AST 19 (5-31) U/L ALT 15 (0-31) U/L Alkaline Phosphatase 68 (39-117) U/L Total Protein 7.6 (6.5-8.0) g/dL Albumin 4.1 (3.5-5.0) g/dL Urine Color Urine Appearance Urine pH (5.0-8.0) Ur Specific [place] (1.005-1.025) Urine Protein (NEG-TRACE) MG/DL Urine Glucose (UA) (NEG) MG/DL Urine Ketones (NEG) MG/DL Urine Blood (NEG) Urine Nitrite (NEG) Ur Leukocyte Esterase (NEG) Urine RBC (0) /HPF Urine WBC (0-4) /HPF Ur Squamous Epith Cells /LPF Urine Bacteria /LPF COVID-19 (LYUBOV) Negative (Negative) COVID-19 Clin Com See Note 07/02/22 Range/Units 12:28 WBC (4.8-10.8) X10*3/uL RBC (4.20-5.50) X10*6/uL Hgb (12.0-16.0) g/dl Hct (37.0-47.0) % MCV (80.0-98.0) fL MCH (27.0-33.0) pg MCHC (31.0-35.0) g/dl RDW (11.0-16.0) % Plt Count (160-400) X10*3/uL MPV (9.4-12.3) fL Immature Gran % (Auto) (0.0-0.4) % Neut % (Auto) (45-73) % Lymph % (Auto) (20-40) % [place] % (Auto) (2-11) % Eos % (Auto) (0-4) % Baso % (Auto) (0-2) % Lymph # (Auto) (1.2-4.9) X10*3/uL [place] # (Auto) (0.1-1.2) X10*3/uL Eos # (Auto) (0.0-0.4) X10*3/uL Baso # (Auto) (0.0-0.2) X10*3/uL Abs Immat Gran (auto) (0.00-0.03) X10*3/uL Absolute Neuts (auto) (2.0-8.3) x10*3/uL Absolute Nucleated RBC (0.0-0.012) X10*3/uL Nucleated RBC % (auto) (0.0-0.2) /100WBC Sodium (135-145) mmol/L Potassium (3.3-5.1) mmol/L Chloride (96-108) mmol/L Carbon Dioxide (22-29) mmol/L Anion Gap (12-20) BUN (9-16) mg/dL Creatinine (0.5-1.4) mg/dL Estim Creat Clear Calc Estimated GFR Random Glucose (60-115) mg/dL Calcium (8.4-10.2) mg/dL Magnesium (1.6-2.6) mg/dL Total Bilirubin (0.0-1.0) mg/dL Direct Bilirubin (0.0-0.5) mg/dL AST (5-31) U/L ALT (0-31) U/L Alkaline Phosphatase (39-117) U/L Total Protein (6.5-8.0) g/dL Albumin (3.5-5.0) g/dL Urine Color STRAW Urine Appearance CLEAR Urine pH 6.5 (5.0-8.0) Ur Specific [place] <= 1.005 (1.005-1.025) Urine Protein NEG (NEG-TRACE) MG/DL Urine Glucose (UA) NEG (NEG) MG/DL Urine Ketones NEG (NEG) MG/DL Urine Blood TRACE (NEG) Urine Nitrite NEG (NEG) Ur Leukocyte Esterase 1+ H (NEG) Urine RBC 1-4 (0) /HPF Urine WBC 1-4 (0-4) /HPF Ur Squamous Epith Cells TRACE /LPF Urine Bacteria NONE /LPF COVID-19 (LYUBOV) (Negative) COVID-19 Clin Com Critical Care Time Critical Care Time Critical Care Time: No Discharge Plan Discharge Clinical Impression: Nausea Patient Disposition: Home, Self-Care Instructions: Acute Nausea and Vomiting (ED) Additional Instructions: Lab workup today was unremarkable. Your CT scan was normal. Recommend trial of the prescribed nausea medication. Follow up with your GI doctor and your primary care doctor. If you develop new or worsening symptoms call 911 or come back to the ER for further evaluation. Prescriptions: New prochlorperazine maleate [Compazine] 10 mg tablet 10 mg PO Q8H PRN (Reason: nausea and vomiting) Qty: 10 0RF No Action alum-mag hydroxide-simeth [Mylanta Maximum Strength] 400-400-40 mg/5 mL suspension 10 ml PO TID PRN (Reason: indigestion) Qty: 1 0RF acetaminophen [Athenol] 325 mg tablet 650 mg PO Q6H PRN (Reason: fever or pain) Qty: 30 0RF sucralfate [Carafate] 100 mg/mL suspension 10 ml PO BID 14 Days Qty: 280 0RF pantoprazole 40 mg tablet,delayed release (DR/EC) 40 mg PO DAILY cholecalciferol (vitamin D3) 50 mcg (2,000 unit) capsule 50 mcg PO DAILY levothyroxine 50 mcg tablet 50 mcg PO DAILY famotidine 20 mg tablet 20 mg PO DAILY docusate sodium 100 mg capsule 100 mg PO BID 30 Days Qty: 60 3RF dicyclomine 10 mg capsule 10 mg PO TID PRN (Reason: abd pain) 30 Days Qty: 30 1RF Referrals: Donovan Taylor MD [Primary Care Provider] - (chronic nausea) Apryl Vail MD [Physician] - (chronic nausea) Print Language: Japanese
[2022-07-02 11:01] LABS: COVID-19 Test Negative (Negative); IDNOW Serial# 16C4AD1C
[2022-07-02 11:18] LABS: MANUAL DIFF FLAG NO
[2022-07-02] MEDS: ondansetron HCL 4 MG/2 ML VIAL IVPUSH (11:18)
[2022-07-02] MEDS: 0.9 % Sodium Chloride 1,000 ML 999 ML IVCONT (11:19)
[2022-07-02 11:24] LABS: Basophils Percent Auto 0.6 % (0-2); Eosinophils Absolute Auto 0.1 X10*3/uL (0.0-0.4); Eosinophils Percent Auto 1.2 % (0-4); Hematocrit 38.3 % (37.0-47.0); Hemoglobin 12.3 g/dl (12.0-16.0); Imm Gran Abs Auto 0.02 X10*3/uL (0.00-0.03); Imm Gran Pct Auto 0.4 % (0.0-0.4); Lymphocytes Absolute Auto 1.1 X10*3/uL (1.2-4.9); Lymphocytes Percent Auto 21.7 % (20-40); Mean Corpuscular HGB Conc 32.1 g/dl (31.0-35.0); Mean Corpuscular Hemoglobin 27.8 pg (27.0-33.0); Mean Corpuscular Volume 86.7 fL (80.0-98.0); Mean Platelet Volume 9.5 fL (9.4-12.3); Monocytes Absolute Auto 0.6 X10*3/uL (0.1-1.2); Monocytes Percent Auto 11.4 % (2-11); Neutrophils Absolute Auto 3.1 x10*3/uL (2.0-8.3); Neutrophils Percent Auto 64.7 % (45-73); Platelet Count 197 X10*3/uL (160-400); Red Blood Count 4.42 X10*6/uL (4.20-5.50); Red Cell Distribution Width 15.1 % (11.0-16.0); White Blood Count 4.8 X10*3/uL (4.8-10.8)
[2022-07-02 11:39] LABS: Alanine Aminotransferase 15 U/L (0-31); Albumin Level 4.1 g/dL (3.5-5.0); Alkaline Phosphatase 68 U/L (39-117); Anion Gap 11 (12-20); Aspartate Amino Transferase 19 U/L (5-31); Bilirubin Direct < 0.2 mg/dL (0.0-0.5); Bilirubin Total 0.3 mg/dL (0.0-1.0); Blood Urea Nitrogen 21 mg/dL (9-16); Calcium 9.7 mg/dL (8.4-10.2); Carbon Dioxide 29 mmol/L (22-29); Chloride 106 mmol/L (96-108); Creatinine Clr Calc Pharmacy 42.8; Estimated Glomerular Filt Rate 53; Glucose Random 110 mg/dL (60-115); Magnesium 2.1 mg/dL (1.6-2.6); Sodium 142 mmol/L (135-145); Total Protein 7.6 g/dL (6.5-8.0)
[2022-07-02 12:32] LABS: Appearance Urine CLEAR; Color Urine STRAW; Glucose Urine UA NEG (NEG); Leukocyte Esterase Urine 1+ (NEG); Nitrite Urine NEG (NEG); PH 6.5 (5.0-8.0); Specific Gravity - Urine <= 1.005 (1.005-1.025); UACC Culture Trigger YES; Urine Blood TRACE (NEG); Urine Ketones NEG (NEG); Urine Protein NEG (NEG-TRACE)
[2022-07-02 12:38] LABS: Squamous Epithelial Cell Urine TRACE /LPF
[2022-07-02 13:44] VITALS: BP 159/78; PULSE 66; O2SAT 96
== END 2022-07-02 13:57 | disposition home or self-care (01) ==
PROVIDERS: Physician Assistant; Emergency Provider Emergency Medicine; PCP Internal Medicine
DX: R11.2 Nausea with vomiting, unspecified (principal); R14.0 Abdominal distension (gaseous); R10.32 Left lower quadrant pain; Z20.822 Contact with and (suspected) exposure to COVID-19; Z79.899 Other long term (current) drug therapy
CPT/HCPCS: 74176; 80048; 80076; 81001; 83735; 85025; 87086; 87635; 96361; 96374; 99284; J2405

== ENCOUNTER 2022-07-09 11:32 | Emergency (ER) | payer OTHER, SELFPAY ==
--- NOTE | ~2022-07-09 | XR_ITS ---
EXAMINATION: XR THORACIC SPINE CLINICAL INFORMATION: Fall COMPARISON: CT chest 03/21/2020 TECHNIQUE: 3 views of the thoracic spine were obtained. FINDINGS: Some minimal spondylitic changes are present in the thoracic spine. No definite acute fracture is seen. Paraspinal lines appear normal without evidence of mediastinal/retroperitoneal hematoma. The visualized ribs and clavicles appear unremarkable. Surgical clips are noted in the gallbladder fossa. When comparison is made to 03/21/2021 CT scan, there has been no interval change. XR/XR thoracic spine 3V IMPRESSION: No evidence of an acute traumatic injury involving the thoracic spine.
--- NOTE | ~2022-07-09 | CT_ITS ---
EXAMINATION: CT HEAD WITHOUT CONTRAST CT CERVICAL SPINE WITHOUT CONTRAST CLINICAL INFORMATION: Reason for Exam Fall rule out bleed COMPARISON: CT of the head and cervical spine done on 10/20/2020, and 09/02/2019. TECHNIQUE: Imaging was performed from the skull base to vertex without intravenous administration of contrast. In addition, helical noncontrast CT imaging was acquired through the cervical spine and source images were reviewed along with axial reconstructions and sagittal and coronal MPRs. This CT examination was performed using dose optimization techniques as appropriate, variously including the following: *Automated exposure control. *Adjustment of mA and/or kV according to patient size (this includes techniques or standardized protocols for targeted exams where dose is matched to indication/reason for exam; i.e. extremities or head). *Use of iterative reconstruction technique. Total exam dose-length product 908.4 mGy-cm FINDINGS: HEAD: No intracranial mass, hemorrhage, or midline shift is visualized. The ventricles and sulci are unchanged. Subtle focal hypodensity involving the anterior left temporal lobe without any mass effect appear unchanged since 09/02/2019, consistent with stable focal encephalomalacia No extra-axial collections are identified. The paranasal sinuses and mastoid air cells are well aerated. CERVICAL SPINE: Mild to moderate diffuse osteopenia and mild to moderate facet degenerative arthritic changes are present throughout the entire cervical spine (right greater the left). Subtle foci of osteolysis are noted along the superior left lateral aspect of C4 and inferior anterior left side of C5 vertebral body, unchanged since . Subcentimeter focal area of sclerosis involving T1 vertebral body posteriorly to the left of the midline also appear unchanged. There is no evidence of acute cervical spine fracture. Vertebral bodies remain normal in height, intervertebral disc spaces are preserved, and alignment is anatomic. No prevertebral or paravertebral soft tissue abnormality is identified. Limited assessment of the lung apices shows stable presumed pleuroparenchymal scar. CT/CT cervical spine wo con IMPRESSION: 1. No acute intracranial pathology. 2. No CT evidence of acute cervical spine fracture or traumatic subluxation. 3. No significant change since 09/02/2019.
--- NOTE | ~2022-07-09 | CT_ITS ---
EXAMINATION: CT ABDOMEN AND PELVIS WITH CONTRAST CLINICAL INFORMATION: Abdominal pain after a fall COMPARISON: CT abdomen pelvis 07/02/2022 TECHNIQUE: Multidetector volumetric images were obtained from the superior aspect of the liver through the pubic symphysis following administration 85 mL of Omnipaque 350 intravenous contrast. Sagittal and coronal reformatted images were obtained on the technologist's workstation. Oral contrast: No This CT examination was performed using dose optimization techniques as appropriate, variously including the following: *Automated exposure control *Adjustment of mA and/or kV according to patient size (this includes techniques or standardized protocols for targeted exams where dose is matched to indication/reason for exam; i.e. extremities or head) *Use of iterative reconstruction technique DLP: 699 mGy-cm FINDINGS: LUNG BASES: Cystic changes are again seen in the lingula. No worrisome abnormality seen at the lung bases. LIVER, GALLBLADDER, AND BILIARY TREE: The liver is normal in size, shape, and attenuation. No focal hepatic lesion or biliary ductal dilatation is present. Status post cholecystectomy PANCREAS: Unremarkable. SPLEEN: Unremarkable. ADRENAL GLANDS: Unremarkable. KIDNEYS AND URETERS: The kidneys are normal in size, shape, and attenuation. Bilateral renal cysts are present with at least one Bosniak class II cyst in the mid to upper pole of the left kidney posteriorly. No hydronephrosis, hydroureter, or calculi seen. No perinephric stranding. BLADDER: Unremarkable. GASTROINTESTINAL TRACT: The small and large bowel are unremarkable. The appendix is unremarkable. ABDOMINAL WALL: No significant hernia is appreciated. LYMPH NODES: Normal. VASCULAR: Unremarkable. PELVIC VISCERA: Unremarkable. OSSEOUS STRUCTURES: No acute fractures are seen. Chronic compression superior endplate of L1 is unchanged to prior. CT/CT abdomen pelvis w con IMPRESSION: A traumatic etiology for the patient's abdominal pain after a fall is not found. No evidence of intra-abdominal or pelvic hemorrhage for any evidence of an osseous injury. Fleischner guidelines were followed.
[2022-07-09 11:42] VITALS: BP 136/70; PULSE 68; PULSE 69; RESP 16; TEMP 36.7; O2SAT 94; BMI 24.0
[2022-07-09 13:04] LABS: MANUAL DIFF FLAG NO
[2022-07-09 13:06] LABS: Basophils Percent Auto 0.2 % (0-2); Eosinophils Percent Auto 0.1 % (0-4); Hematocrit 39.3 % (37.0-47.0); Hemoglobin 12.8 g/dl (12.0-16.0); Imm Gran Abs Auto 0.04 X10*3/uL (0.00-0.03); Imm Gran Pct Auto 0.5 % (0.0-0.4); Lymphocytes Absolute Auto 1.1 X10*3/uL (1.2-4.9); Lymphocytes Percent Auto 12.6 % (20-40); Mean Corpuscular HGB Conc 32.6 g/dl (31.0-35.0); Mean Corpuscular Hemoglobin 27.7 pg (27.0-33.0); Mean Corpuscular Volume 85.1 fL (80.0-98.0); Mean Platelet Volume 9.6 fL (9.4-12.3); Monocytes Absolute Auto 0.5 X10*3/uL (0.1-1.2); Monocytes Percent Auto 5.9 % (2-11); Neutrophils Absolute Auto 6.9 x10*3/uL (2.0-8.3); Neutrophils Percent Auto 80.7 % (45-73); Platelet Count 221 X10*3/uL (160-400); Red Blood Count 4.62 X10*6/uL (4.20-5.50); Red Cell Distribution Width 14.9 % (11.0-16.0); White Blood Count 8.6 X10*3/uL (4.8-10.8)
[2022-07-09 13:22] LABS: Appearance Urine CLEAR; Color Urine YELLOW; Glucose Urine UA NEG (NEG); Leukocyte Esterase Urine NEG (NEG); Nitrite Urine NEG (NEG); Specific Gravity - Urine 1.015 (1.005-1.025); UACC Culture Trigger NO; Urine Blood TRACE (NEG); Urine Ketones NEG (NEG); Urine Protein NEG (NEG-TRACE)
[2022-07-09 13:29] LABS: Alanine Aminotransferase 17 U/L (0-31); Albumin Level 4.3 g/dL (3.5-5.0); Alkaline Phosphatase 70 U/L (39-117); Anion Gap 15 (12-20); Aspartate Amino Transferase 23 U/L (5-31); Bilirubin Direct < 0.2 mg/dL (0.0-0.5); Bilirubin Total 0.4 mg/dL (0.0-1.0); Blood Urea Nitrogen 20 mg/dL (9-16); Calcium 9.8 mg/dL (8.4-10.2); Carbon Dioxide 23 mmol/L (22-29); Chloride 105 mmol/L (96-108); Creatinine Clr Calc Pharmacy 38.8; Estimated Glomerular Filt Rate 54; Glucose Random 128 mg/dL (60-115); Lipase 28 U/L (8-78); Potassium 3.8 mmol/L (3.3-5.1); Sodium 139 mmol/L (135-145); Total Protein 8.2 g/dL (6.5-8.0)
[2022-07-09 13:30] LABS: Squamous Epithelial Cell Urine 1+ /LPF
[2022-07-09 13:31] LABS: RBC Urine 0-2 /HPF (0); WBC Urine 0-2 /HPF (0-4)
[2022-07-09 13:32] LABS: Hyaline Casts Urine 0-2 /LPF
[2022-07-09] MEDS: iohexoL 350 MG/ML 100 ML INFUS..BTL IV (14:12)
--- NOTE | 2022-07-09 15:33 | ED_ITS ---
HPI - General Adult General Chief complaint: Abdominal Pain Stated complaint: ABDO PAIN/ FELL AND HET HER HEAD Time Seen by Provider: 07/09/22 11:58 History of Present Illness HPI narrative: Patient complains of neck pain and mostly abdominal pain after tripping and falling forward at home She had no loss of consciousness she thinks she did hit her head but has no headache now no vision change no retrograde amnesia she was awake for the whole episode no vomiting There is no numbness weakness or tingling She did hit her belly and felt briefly nauseous No chest pain no syncope Related Data Home Medications Medication Instructions Recorded Confirmed pantoprazole 40 mg tablet,delayed 40 mg PO DAILY 11/28/20 05/28/22 release cholecalciferol (vitamin D3) 50 50 mcg PO DAILY 11/13/21 05/28/22 mcg (2,000 unit) capsule levothyroxine 50 mcg tablet 50 mcg PO DAILY 11/13/21 05/28/22 famotidine 20 mg tablet 20 mg PO DAILY 05/28/22 05/28/22 Previous Rx's Medication Instructions Recorded aluminum-mag hydroxide-simethicone 10 ml PO TID PRN indigestion #1 ea 09/03/20 400 mg-400 mg-40 mg/5 mL oral susp (Mylanta Maximum Strength) acetaminophen 325 mg tablet 650 mg PO Q6H PRN fever or pain 09/27/20 (Athenol) #30 tabs sucralfate 100 mg/mL oral 10 ml PO BID 14 days #280 mL 10/16/20 suspension (Carafate) dicyclomine 10 mg capsule 10 mg PO TID PRN abd pain 30 days 05/28/22 #30 caps docusate sodium 100 mg capsule 100 mg PO BID 30 days #60 caps 05/28/22 prochlorperazine maleate 10 mg 10 mg PO Q8H PRN nausea and 07/02/22 tablet (Compazine) vomiting #10 tabs Allergies Allergy/AdvReac Type Severity Reaction Status Date / Time azithromycin [From ZITHROMAX] Allergy Severe GENERIC Verified 05/28/22 07:31 ONLY-SEVERE ABD PAIN, abdominal pain codeine [CODEINE] Allergy Intermediate NAUSEA & Verified 05/28/22 07:31 VOMITING,FAINTED, nausea, vomiting, syncope erythromycin base Allergy Intermediate HIVES, ABD Verified 06/27/22 07:31 [ERYTHROMYCIN BASE] PAIN promethazine [From PHENERGAN] Allergy Intermediate DIZZY / Verified 05/28/22 07:31 NAUSEATED amoxicillin [Prevpac] Allergy Unknown Unknown Verified 05/28/22 07:31 clarithromycin [Prevpac] Allergy Unknown Unknown Verified 05/28/22 07:31 Review of Systems Review of Systems: Positive for abdominal pain and neck pain after tripping and falling on the floor this morning Negatives are no headache no loss of consciousness no vision changes no retrograde amnesia no vomiting no numbness weakness or tingling no chest pain no shortness of breath no palpitations no fainting no feeling faint no vomiting no diarrhea no dysuria no blood in the urine no extremity pains Yes all other systems are reviewed and are negative PMFSH Past Medical History Source: nursing notes reviewed Medical History (Updated 07/09/22 @ 15:39 by MAURISIO Arias) Anxiety Arthritis Bright red blood per rectum Constipation Dysphagia GERD (gastroesophageal reflux disease) GI bleed Hematuria of unknown cause History of anemia History of colitis Hx of breast cancer Hx of syncope Hypothyroid Weight loss, unintentional Surgical History (Updated 06/12/22 @ 08:24 by Brianna Ramírez MD) H/O left mastectomy History of ankle surgery Family History Family History Father No problems noted. 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 have visiting nurse or other home services: Yes ([employer]) Alcohol intake: never Patient Tobacco Use Status: Never used Tobacco Advance Directives: Yes Advance Directives on File: Yes Advance Directives Date on File: 10/20/20 service: No Current occupational status: retired Physical Exam ED Vital Signs: Vital Signs - 24 hr 07/09/22 11:42 Temperature 98.0 F Pulse Rate 68 Respiratory Rate 16 Blood Pressure 136/70 Pulse Oximetry 94 Oxygen Delivery Method Room Air BMI result Body Mass Index 24.0 General appearance no distress Head is normocephalic atraumatic The ears no hemotympanum Eyes pupils equal round reactive to light extraocular motions are intact The neck is supple but there is some lateral tenderness bilaterally no midline tenderness Chest clear to auscultation bilateral Heart no murmur Chest wall and ribs no tenderness Abdomen there was diffuse minor tenderness no rebound no guarding Extremities full range of motion x4 Skin no laceration Neuro no focal motor sensory deficits, gait and balance are normal Course Course Course Narrative: CT of head no bleed or fracture CT of neck no fractures CT of abdomen did not reveal any acute pathology no emergent pathology no evidence of any bleeding Thoracic spine x-ray did not show any fractures No acute findings on labs Patient's pain resolved and she is feeling fine walking around the ER now tolerating p.o. and patient was discharged Repeat exam in of the abdomen was nontender Medical Decision Making Lab Data Lab results reviewed: Yes I reviewed the patient's lab results. Result diagrams: 07/09/22 12:59 07/09/22 12:59 Labs: Lab Results 07/09/22 07/09/22 07/09/22 Range/Units 12:59 12:59 13:13 WBC 8.6 (4.8-10.8) X10*3/uL RBC 4.62 (4.20-5.50) X10*6/uL Hgb 12.8 (12.0-16.0) g/dl Hct 39.3 (37.0-47.0) % MCV 85.1 (80.0-98.0) fL MCH 27.7 (27.0-33.0) pg MCHC 32.6 (31.0-35.0) g/dl RDW 14.9 (11.0-16.0) % Plt Count 221 (160-400) X10*3/uL MPV 9.6 (9.4-12.3) fL Immature Gran % (Auto) 0.5 H (0.0-0.4) % Neut % (Auto) 80.7 H (45-73) % Lymph % (Auto) 12.6 L (20-40) % [place] % (Auto) 5.9 (2-11) % Eos % (Auto) 0.1 (0-4) % Baso % (Auto) 0.2 (0-2) % Lymph # (Auto) 1.1 L (1.2-4.9) X10*3/uL [place] # (Auto) 0.5 (0.1-1.2) X10*3/uL Eos # (Auto) 0.0 (0.0-0.4) X10*3/uL Baso # (Auto) 0.0 (0.0-0.2) X10*3/uL Abs Immat Gran (auto) 0.04 H (0.00-0.03) X10*3/uL Absolute Neuts (auto) 6.9 (2.0-8.3) x10*3/uL Absolute Nucleated RBC 0.000 (0.0-0.012) X10*3/uL Nucleated RBC % (auto) 0.0 (0.0-0.2) /100WBC Sodium 139 (135-145) mmol/L Potassium 3.8 (3.3-5.1) mmol/L Chloride 105 (96-108) mmol/L Carbon Dioxide 23 (22-29) mmol/L Anion Gap 15 (12-20) BUN 20 H (9-16) mg/dL Creatinine 0.98 (0.5-1.4) mg/dL Estim Creat Clear Calc 38.8 Estimated GFR 54 Random Glucose 128 H (60-115) mg/dL Calcium 9.8 (8.4-10.2) mg/dL Total Bilirubin 0.4 (0.0-1.0) mg/dL Direct Bilirubin < 0.2 (0.0-0.5) mg/dL AST 23 (5-31) U/L ALT 17 (0-31) U/L Alkaline Phosphatase 70 (39-117) U/L Total Protein 8.2 H (6.5-8.0) g/dL Albumin 4.3 (3.5-5.0) g/dL Lipase 28 (8-78) U/L Urine Color YELLOW Urine Appearance CLEAR Urine pH 6.0 (5.0-8.0) Ur Specific [place] 1.015 (1.005-1.025) Urine Protein NEG (NEG-TRACE) MG/DL Urine Glucose (UA) NEG (NEG) MG/DL Urine Ketones NEG (NEG) MG/DL Urine Blood TRACE (NEG) Urine Nitrite NEG (NEG) Ur Leukocyte Esterase NEG (NEG) Urine RBC 0-2 (0) /HPF Urine WBC 0-2 (0-4) /HPF Ur Squamous Epith Cells 1+ /LPF Urine Bacteria NONE /LPF Hyaline Casts 0-2 /LPF Discharge Plan Discharge Clinical Impression: Fall, Abdominal pain, Neck muscle strain Patient Disposition: Home, Self-Care Additional Instructions: CT scans and x-rays did not show any broken bone, lab evaluation did not show any significant abnormality Follow routinely with primary doctor If pain worsens or any worse condition or any concerns return to the ER any time Prescriptions: No Action alum-mag hydroxide-simeth [Mylanta Maximum Strength] 400-400-40 mg/5 mL suspension 10 ml PO TID PRN (Reason: indigestion) Qty: 1 0RF acetaminophen [Athenol] 325 mg tablet 650 mg PO Q6H PRN (Reason: fever or pain) Qty: 30 0RF sucralfate [Carafate] 100 mg/mL suspension 10 ml PO BID 14 Days Qty: 280 0RF prochlorperazine maleate [Compazine] 10 mg tablet 10 mg PO Q8H PRN (Reason: nausea and vomiting) Qty: 10 0RF pantoprazole 40 mg tablet,delayed release (DR/EC) 40 mg PO DAILY cholecalciferol (vitamin D3) 50 mcg (2,000 unit) capsule 50 mcg PO DAILY levothyroxine 50 mcg tablet 50 mcg PO DAILY famotidine 20 mg tablet 20 mg PO DAILY docusate sodium 100 mg capsule 100 mg PO BID 30 Days Qty: 60 3RF dicyclomine 10 mg capsule 10 mg PO TID PRN (Reason: abd pain) 30 Days Qty: 30 1RF
== END 2022-07-09 15:49 | disposition home or self-care (01) ==
PROVIDERS: Physician Assistant Medical; Emergency Provider Emergency Medicine
DX: R10.9 Unspecified abdominal pain (principal); S16.1XXA Strain of muscle, fascia and tendon at neck level, initial encounter; W01.0XXA Fall on same level from slipping, tripping and stumbling without subsequent striking against object, initial encounter; Y93.9 Activity, unspecified; Y92.009 Unspecified place in unspecified non-institutional (private) residence as the place of occurrence of the external cause; Y99.9 Unspecified external cause status
CPT/HCPCS: 36415; 70450; 72072; 72125; 74177; 80048; 80076; 81001; 83690; 85025; 99283; 99284; Q9967

== ENCOUNTER 2022-10-29 12:45 | Emergency (ER) | payer OTHER, SELFPAY | END 2022-10-29 15:12 | disposition left against medical advice (07) | PROVIDERS: Emergency Provider Emergency Medicine | DX: R53.1 Weakness (principal) ==

== ENCOUNTER 2022-11-07 02:40 | Emergency (ER) | payer OTHER, SELFPAY ==
--- NOTE | ~2022-11-07 | XR_ITS ---
EXAMINATION: XR CHEST CLINICAL INFORMATION: Shortness of breath. COMPARISON: CT chest 03/21/2021. TECHNIQUE: Frontal view of the chest was obtained. FINDINGS: Normal appearance of the cardiomediastinal structures. No effusions or pneumothoraces. No focal pulmonary consolidation. Central peribronchial wall thickening and scattered fine and medium pulmonary reticular opacities. XR/XR chest 1V IMPRESSION: *No definitive acute cardiopulmonary abnormalities. Multifocal scattered reticular opacities and peribronchial wall thickening with findings most pronounced the left upper lung zone grossly unchanged compared with CT of the thorax 03/21/2021. Findings could represent the sequela of previous infection.
[2022-11-07 02:48] VITALS: BP 131/69; PULSE 66; RESP 18; TEMP 36.7; O2SAT 95
--- NOTE | 2022-11-07 02:51 | ECG_ITS ---
Test Reason : SOB Blood Pressure : / mmHG Vent. Rate : 069 BPM Atrial Rate : 069 BPM P-R Int : 192 ms QRS Dur : 086 ms QT Int : 404 ms P-R-T Axes : 078 -10 050 degrees QTc Int : 432 ms Normal sinus rhythm Moderate voltage criteria for LVH, may be normal variant ( R in aVL , [place] product ) Borderline ECG When compared to the previous EKG of Left ventricular hypertrophy criteria noted Referred By: Bryce Tirado Electronically Signed By:SHAHRZAD PROCTOR MD
--- NOTE | 2022-11-07 02:53 | ED.SOB ---
HPI - SOB/Dyspnea General Chief Complaint: Dyspnea Stated Complaint: sob Time Seen by Provider: 11/07/22 02:47 Source: patient and EMS Mode of arrival: EMS Limitations: no limitations History of Present Illness HPI Narrative: 82-year-old female brought in by ambulance for evaluation of shortness of breath for 1 day. Patient declined any SOB or CP now, no lower extremity swelling or pain, patient is with known to our ED had a history of anxiety in the past with similar presentation. No CP, no abdominal pain, no sick contact, no fever, no chills. Patient was stable vital signs on arrival to the ED. Related Data Home Medications Medication Instructions Recorded Confirmed pantoprazole 40 mg tablet,delayed 40 mg PO DAILY 11/28/20 05/28/22 release cholecalciferol (vitamin D3) 50 50 mcg PO DAILY 11/13/21 05/28/22 mcg (2,000 unit) capsule levothyroxine 50 mcg tablet 50 mcg PO DAILY 11/13/21 05/28/22 famotidine 20 mg tablet 20 mg PO DAILY 05/28/22 05/28/22 alendronate 70 mg tablet 70 mg PO QWEEK 10/08/22 lansoprazole 30 mg capsule,delayed 30 mg PO DAILY 10/08/22 release sucralfate 1 gram tablet 1 g PO TID 10/08/22 Previous Rx's Medication Instructions Recorded aluminum-mag hydroxide-simethicone 10 ml PO TID PRN indigestion #1 ea 09/03/20 400 mg-400 mg-40 mg/5 mL oral susp (Mylanta Maximum Strength) acetaminophen 325 mg tablet 650 mg PO Q6H PRN fever or pain 09/27/20 (Athenol) #30 tabs sucralfate 100 mg/mL oral 10 ml PO BID 14 days #280 mL 10/16/20 suspension (Carafate) dicyclomine 10 mg capsule 10 mg PO TID PRN abd pain 30 days 05/28/22 #30 caps docusate sodium 100 mg capsule 100 mg PO BID 30 days #60 caps 05/28/22 prochlorperazine maleate 10 mg 10 mg PO Q8H PRN nausea and 07/02/22 tablet (Compazine) vomiting #10 tabs Allergies Allergy/AdvReac Type Severity Reaction Status Date / Time azithromycin [From ZITHROMAX] Allergy Severe GENERIC Verified 10/08/22 14:10 ONLY-SEVERE ABD PAIN, abdominal pain codeine [CODEINE] Allergy Intermediate NAUSEA & Verified 10/08/22 14:10 VOMITING,FAINTED, nausea, vomiting, syncope erythromycin base Allergy Intermediate HIVES, ABD Verified 10/08/22 14:10 [ERYTHROMYCIN BASE] PAIN promethazine [From PHENERGAN] Allergy Intermediate DIZZY / Verified 10/08/22 14:10 NAUSEATED amoxicillin [Prevpac] Allergy Unknown Unknown Verified 10/08/22 14:10 clarithromycin [Prevpac] Allergy Unknown Unknown Verified 10/08/22 14:10 Review of Systems Review of Systems: All other systems are reviewed and are negative Constitutional: Reports as per HPI and Reports no additional constitutional complaints Eyes: Reports as per HPI and Reports no additional eye complaints Reports system reviewed and no additional complaints, except as documented Cardiovascular: Reports as per HPI and Reports no additional cardiovascular complaints Respiratory: Reports as per HPI and Reports no additional respiratory complaints Gastrointestinal: Reports as per HPI and Reports no additional gastrointestinal complaints Genitourinary: Reports no additional female genitourinary complaints Musculoskeletal: Reports no additional musculoskeletal complaints Skin/Breast: Reports system reviewed and no additional complaints, except as docu Psychiatric: Reports no additional psychiatric complaints Endocrine: Reports no additional endocrine complaints Hematologic/Lymphatic: Reports no additional hematologic/lymphatic complaints Allergic/Immunologic: Reports no additional allergic/immunologic complaints Reports system reviewed and no additional complaints, except as documented and Reports Abnormal speech present [facility] Past Medical History Medical History Anxiety Arthritis Bright red blood per rectum Constipation Dysphagia GERD (gastroesophageal reflux disease) GI bleed Hematuria of unknown cause History of anemia History of colitis Hx of breast cancer Hx of syncope Hypothyroid Weight loss, unintentional Surgical History H/O left mastectomy History of ankle surgery History of esophagogastroduodenoscopy (EGD) Hx of colonoscopy Family History Family History Father No problems noted. 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 have visiting nurse or other home services: Yes ([employer]) Alcohol intake: never Patient Tobacco Use Status: Never used Tobacco Smoked in Last 30 Days: No Use of substances other than those prescribed or required for medical reasons: No Advance Directives: Yes Advance Directives on File: Yes Advance Directives Date on File: 10/20/20 service: No Current occupational status: retired Physical Exam Vital Signs: Vital Signs: Last Vital Signs Temp 98.1 F 11/07/22 04:09 Pulse 70 11/07/22 05:24 Resp 20 11/07/22 05:24 BP 147/72 H 11/07/22 05:24 Pulse Ox 98 11/07/22 05:24 O2 Del Method 11/07/22 05:24 BMI result Body Mass Index 23.9 Vital signs have been reviewed as appeared to be correct. Blood pressure normal. Heart rate normal. Respiration rate normal. Temperature normal. Oxygen saturation normal. Appearance: Alert. Oriented X3. No acute distress. Head: Normal external exam. Normocephalic. Atraumatic. No Mims signs noted. No raccoon eyes noted Eyes: PERRLA. EOMI. Conjunctiva and sclera normal. Eyelids normal. ENT: TM's Normal. Pharynx normal. Uvula midline. Moist mucous membranes. No trismus noted. No drooling noted. No muffled voice noted. Neck: Normal inspection. Neck supple. FROM. No adenopathy. Thyroid Normal. No meningeal signs. No neck mass noted. CVS: Normal heart rate and rhythm. Heart sound normal. No murmurs noted. Pulses normal throughout. Respiratory: No respiratory distress. Painless inspiration. Breath sounds normal. No wheezes/rales/rhonchi noted. Chest nontender. No accessory muscle usage noted or decreased air movement noted. Abdomen: Soft and nontender. Bowel sounds normal in all 4 quadrants. No distention noted. No organomegaly noted. No visible injury noted. Back: No CVA tenderness. Full range of motion noted. Skin: Skin warm and dry. Normal skin color. Normal skin turgor. No rashes/lesions/lacerations noted. Extremities: No lower extremity edema. Extremities exhibit normal range of motion. Extremities nontender. Neuro: Oriented X 3. Cranial nerve exam: II-XII are grossly intact No motor deficit. No sensory deficit. Reflexes normal. Course Course Course Narrative: 82-year-old female history of anxiety presented with shortness of breath, patient was stable vital sign and O2 sat is stable no tachypnea or tachycardia unremarkable labs slight elevation of D-dimer but patient has no risk for PE or DVT no recent travel, no recent prolonged immobilization, no lower extremity swelling or tenderness. Chest x-ray revealed chronic changes with no acute finding. Will reassure the patient and discharge patient is asymptomatic at discharge. Medical Decision Making Medical Decision Making Differential Diagnoses: Differential diagnosis Differential Diagnosis: The differential diagnosis associated with the patient?s presentation includes: Pneumonia/congestive heart failure/anxiety. Lab Attestation: I reviewed the patient's lab results. Independent interpretation of EKG, rhythm strip, radiology study: Independent interp EKG,rhythm strip, radiology study I performed an independent interpretation of the: EKG My interpretation is normal sinus rhythm with LVH at 69, no ST-T changes. Discharge Plan Discharge Clinical Impression: Anxiety Patient Disposition: Home, Self-Care Instructions: Anxiety (ED) Prescriptions: No Action alum-mag hydroxide-simeth [Mylanta Maximum Strength] 400-400-40 mg/5 mL suspension 10 ml PO TID PRN (Reason: indigestion) Qty: 1 0RF acetaminophen [Athenol] 325 mg tablet 650 mg PO Q6H PRN (Reason: fever or pain) Qty: 30 0RF sucralfate [Carafate] 100 mg/mL suspension 10 ml PO BID 14 Days Qty: 280 0RF prochlorperazine maleate [Compazine] 10 mg tablet 10 mg PO Q8H PRN (Reason: nausea and vomiting) Qty: 10 0RF pantoprazole 40 mg tablet,delayed release (DR/EC) 40 mg PO DAILY cholecalciferol (vitamin D3) 50 mcg (2,000 unit) capsule 50 mcg PO DAILY levothyroxine 50 mcg tablet 50 mcg PO DAILY famotidine 20 mg tablet 20 mg PO DAILY docusate sodium 100 mg capsule 100 mg PO BID 30 Days Qty: 60 3RF dicyclomine 10 mg capsule 10 mg PO TID PRN (Reason: abd pain) 30 Days Qty: 30 1RF alendronate 70 mg tablet 70 mg PO QWEEK lansoprazole 30 mg capsule,delayed release(DR/EC) 30 mg PO DAILY sucralfate 1 gram tablet 1 g PO TID Referrals: Physician,Unknown J [Primary Care Provider] -
[2022-11-07 03:05] VITALS: BP 131/69; BP 143/80; PULSE 65; PULSE 67; RESP 18; TEMP 36.7; O2SAT 95; O2SAT 96; BMI 23.9
[2022-11-07 03:05] LABS: MANUAL DIFF FLAG NO
[2022-11-07 03:06] LABS: Basophils Percent Auto 0.4 % (0-2); Eosinophils Absolute Auto 0.1 X10*3/uL (0.0-0.4); Eosinophils Percent Auto 1.8 % (0-4); Hematocrit 36.1 % (37.0-47.0); Hemoglobin 11.8 g/dl (12.0-16.0); Imm Gran Abs Auto 0.01 X10*3/uL (0.00-0.03); Imm Gran Pct Auto 0.2 % (0.0-0.4); Lymphocytes Absolute Auto 1.9 X10*3/uL (1.2-4.9); Lymphocytes Percent Auto 33.7 % (20-40); Mean Corpuscular HGB Conc 32.7 g/dl (31.0-35.0); Mean Corpuscular Hemoglobin 27.3 pg (27.0-33.0); Mean Corpuscular Volume 83.4 fL (80.0-98.0); Mean Platelet Volume 9.1 fL (9.4-12.3); Monocytes Absolute Auto 0.5 X10*3/uL (0.1-1.2); Monocytes Percent Auto 8.8 % (2-11); Neutrophils Absolute Auto 3.1 x10*3/uL (2.0-8.3); Neutrophils Percent Auto 55.1 % (45-73); Platelet Count 206 X10*3/uL (160-400); Red Blood Count 4.33 X10*6/uL (4.20-5.50); Red Cell Distribution Width 15.4 % (11.0-16.0); White Blood Count 5.6 X10*3/uL (4.8-10.8)
--- NOTE | 2022-11-07 03:13 | PC.NURSE ---
pT'S v/s ARE STABLE, Pt's lungs are clear throughout bilaterally. Pt is coughing non productive, Pt is on the monitor and it shows NSR.
[2022-11-07 03:17] LABS: D Dimer High Sensitivity 275 NG/ML
[2022-11-07 03:21] LABS: Alanine Aminotransferase 15 U/L (0-31); Albumin Level 3.9 g/dL (3.5-5.0); Alkaline Phosphatase 64 U/L (39-117); Anion Gap 11 (12-20); Aspartate Amino Transferase 17 U/L (5-31); Bilirubin Direct < 0.2 mg/dL (0.0-0.5); Bilirubin Total 0.2 mg/dL (0.0-1.0); Blood Urea Nitrogen 22 mg/dL (9-16); Carbon Dioxide 27 mmol/L (22-29); Chloride 107 mmol/L (96-108); Creatinine Clr Calc Pharmacy 36.5; Estimated Glomerular Filt Rate 53; Glucose Random 110 mg/dL (60-115); Lipase 27 U/L (8-78); Potassium 4.2 mmol/L (3.3-5.1); Sodium 141 mmol/L (135-145)
[2022-11-07 03:28] LABS: Troponin-I High Sensitivity < 3.5 ng/L (<3.5-17.0)
[2022-11-07 03:39] LABS: B Type Natriuretic Peptide 47 pg/mL (<100)
[2022-11-07 03:42] LABS: Influenza A PCR NEGATIVE (Negative); Influenza B PCR NEGATIVE (Negative); Resp Syncy Virus RNA Qual PCR NEGATIVE (Negative); SARS COV2 PCR INHOUSE NEGATIVE (Negative)
[2022-11-07 04:09] VITALS: BP 134/68; PULSE 64; RESP 20; TEMP 36.7; O2SAT 97
[2022-11-07 05:24] VITALS: BP 147/72; PULSE 70; RESP 20; O2SAT 98
== END 2022-11-07 07:05 | disposition home or self-care (01) ==
PROVIDERS: Emergency Provider Emergency Medicine
DX: F41.1 Generalized anxiety disorder (principal); R06.02 Shortness of breath; R07.89 Other chest pain; F43.0 Acute stress reaction; Z20.822 Contact with and (suspected) exposure to COVID-19; Z79.899 Other long term (current) drug therapy
CPT/HCPCS: 0241U; 71045; 80048; 80076; 83690; 83880; 84484; 85025; 85379; 93005; 99283; 99285

== ENCOUNTER 2022-12-17 05:45 | Emergency (ER) | payer OTHER, SELFPAY ==
[2022-12-17 05:47] VITALS: PULSE 80; PULSE 90; RESP 12; TEMP 37; O2SAT 95; O2SAT 96; BMI 24.1
[2022-12-17 05:51] VITALS: BP 150/76; PULSE 79; RESP 13; TEMP 37; O2SAT 95
[2022-12-17 06:26] LABS: MANUAL DIFF FLAG NO
[2022-12-17 06:27] LABS: Basophils Percent Auto 0.6 % (0-2); Eosinophils Absolute Auto 0.1 X10*3/uL (0.0-0.4); Eosinophils Percent Auto 1.3 % (0-4); Hematocrit 37.8 % (37.0-47.0); Hemoglobin 12.5 g/dl (12.0-16.0); Imm Gran Abs Auto 0.02 X10*3/uL (0.00-0.03); Imm Gran Pct Auto 0.4 % (0.0-0.4); Lymphocytes Absolute Auto 1.4 X10*3/uL (1.2-4.9); Lymphocytes Percent Auto 25.7 % (20-40); Mean Corpuscular HGB Conc 33.1 g/dl (31.0-35.0); Mean Corpuscular Hemoglobin 28.2 pg (27.0-33.0); Mean Corpuscular Volume 85.1 fL (80.0-98.0); Mean Platelet Volume 8.9 fL (9.4-12.3); Monocytes Absolute Auto 0.4 X10*3/uL (0.1-1.2); Monocytes Percent Auto 7.8 % (2-11); Neutrophils Absolute Auto 3.4 x10*3/uL (2.0-8.3); Neutrophils Percent Auto 64.2 % (45-73); Platelet Count 220 X10*3/uL (160-400); Red Blood Count 4.44 X10*6/uL (4.20-5.50); Red Cell Distribution Width 15.5 % (11.0-16.0); White Blood Count 5.3 X10*3/uL (4.8-10.8)
[2022-12-17 06:45] LABS: Alanine Aminotransferase 18 U/L (0-31); Albumin Level 3.9 g/dL (3.5-5.0); Alkaline Phosphatase 67 U/L (39-117); Anion Gap 11 (12-20); Aspartate Amino Transferase 24 U/L (5-31); Bilirubin Direct < 0.2 mg/dL (0.0-0.5); Bilirubin Total 0.4 mg/dL (0.0-1.0); Blood Urea Nitrogen 19 mg/dL (9-16); Calcium 9.6 mg/dL (8.4-10.2); Carbon Dioxide 28 mmol/L (22-29); Chloride 107 mmol/L (96-108); Creatinine Clr Calc Pharmacy 42.7; Estimated Glomerular Filt Rate 58; Glucose Random 104 mg/dL (60-115); Lipase 19 U/L (8-78); Sodium 142 mmol/L (135-145); Total Protein 7.5 g/dL (6.5-8.0)
--- NOTE | 2022-12-17 07:18 | ED.GENADULT ---
HPI - General Adult General Chief complaint: Abdominal Pain Stated complaint: Abd Pain for 2 days Time Seen by Provider: 12/17/22 06:54 Source: patient and translator/interpreter Mode of arrival: ambulatory Limitations: no limitations History of Present Illness HPI narrative: 82-year-old female was at a birthday constitution party yesterday started to have diarrhea after eating food at the constitution party, known known sick contact, patient had 3 nonbloody watery diarrhea bowel movement since this morning. Feels no nausea, no vomiting, no abdominal pain, no fever, no chills. Related Data Home Medications Medication Instructions Recorded Confirmed pantoprazole 40 mg tablet,delayed 40 mg PO DAILY 11/28/20 05/28/22 release cholecalciferol (vitamin D3) 50 50 mcg PO DAILY 11/13/21 05/28/22 mcg (2,000 unit) capsule levothyroxine 50 mcg tablet 50 mcg PO DAILY 11/13/21 05/28/22 famotidine 20 mg tablet 20 mg PO DAILY 05/28/22 05/28/22 alendronate 70 mg tablet 70 mg PO QWEEK 10/08/22 lansoprazole 30 mg capsule,delayed 30 mg PO DAILY 10/08/22 release sucralfate 1 gram tablet 1 g PO TID 10/08/22 Previous Rx's Medication Instructions Recorded aluminum-mag hydroxide-simethicone 10 ml PO TID PRN indigestion #1 ea 09/03/20 400 mg-400 mg-40 mg/5 mL oral susp (Mylanta Maximum Strength) acetaminophen 325 mg tablet 650 mg PO Q6H PRN fever or pain 09/27/20 (Athenol) #30 tabs sucralfate 100 mg/mL oral 10 ml PO BID 14 days #280 mL 10/16/20 suspension (Carafate) dicyclomine 10 mg capsule 10 mg PO TID PRN abd pain 30 days 05/28/22 #30 caps docusate sodium 100 mg capsule 100 mg PO BID 30 days #60 caps 05/28/22 prochlorperazine maleate 10 mg 10 mg PO Q8H PRN nausea and 07/02/22 tablet (Compazine) vomiting #10 tabs Allergies Allergy/AdvReac Type Severity Reaction Status Date / Time azithromycin [From ZITHROMAX] Allergy Severe GENERIC Verified 10/08/22 14:10 ONLY-SEVERE ABD PAIN, abdominal pain codeine [CODEINE] Allergy Intermediate NAUSEA & Verified 10/08/22 14:10 VOMITING,FAINTED, nausea, vomiting, syncope erythromycin base Allergy Intermediate HIVES, ABD Verified 10/08/22 14:10 [ERYTHROMYCIN BASE] PAIN promethazine [From PHENERGAN] Allergy Intermediate DIZZY / Verified 10/08/22 14:10 NAUSEATED amoxicillin [Prevpac] Allergy Unknown Unknown Verified 10/08/22 14:10 clarithromycin [Prevpac] Allergy Unknown Unknown Verified 10/08/22 14:10 Review of Systems Review of Systems: All other systems are reviewed and are negative Constitutional: Reports as per HPI and Reports no additional constitutional complaints Eyes: Reports as per HPI and Reports no additional eye complaints Reports system reviewed and no additional complaints, except as documented Cardiovascular: Reports as per HPI and Reports no additional cardiovascular complaints Respiratory: Reports as per HPI and Reports no additional respiratory complaints Gastrointestinal: Reports as per HPI and Reports no additional gastrointestinal complaints Genitourinary: Reports no additional female genitourinary complaints Musculoskeletal: Reports no additional musculoskeletal complaints Skin/Breast: Reports system reviewed and no additional complaints, except as docu Psychiatric: Reports no additional psychiatric complaints Endocrine: Reports no additional endocrine complaints Hematologic/Lymphatic: Reports no additional hematologic/lymphatic complaints Allergic/Immunologic: Reports no additional allergic/immunologic complaints Reports system reviewed and no additional complaints, except as documented and Reports Abnormal speech present [facility] Past Medical History Medical History Anxiety Arthritis Bright red blood per rectum Constipation Dysphagia GERD (gastroesophageal reflux disease) GI bleed Hematuria of unknown cause History of anemia History of colitis Hx of breast cancer Hx of syncope Hypothyroid Weight loss, unintentional Surgical History H/O left mastectomy History of ankle surgery History of esophagogastroduodenoscopy (EGD) Hx of colonoscopy Family History Family History Father No problems noted. 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) Alcohol intake: never Patient Tobacco Use Status: Never used Tobacco Smoked in Last 30 Days: No Use of substances other than those prescribed or required for medical reasons: No Advance Directives: Yes Advance Directives on File: Yes Advance Directives Date on File: 10/20/20 service: No Current occupational status: retired Physical Exam ED Vital Signs: Vital Signs - 24 hr 12/17/22 05:47 12/17/22 05:51 12/17/22 07:33 Temperature 98.6 F 98.6 F Pulse Rate 80 79 74 Respiratory Rate 12 13 18 Blood Pressure 150/76 H 145/69 H Pulse Oximetry 95 95 94 Oxygen Delivery Method Room Air Room Air Room Air BMI result Body Mass Index 24.1 Vital signs have been reviewed as appeared to be correct. Blood pressure normal. Heart rate normal. Respiration rate normal. Temperature normal. Oxygen saturation normal. Appearance: Alert. Oriented X3. No acute distress. Head: Normal external exam. Normocephalic. Atraumatic. No Mims signs noted. No raccoon eyes noted Eyes: PERRLA. EOMI. Conjunctiva and sclera normal. Eyelids normal. ENT: TM's Normal. Pharynx normal. Uvula midline. Moist mucous membranes. No trismus noted. No drooling noted. No muffled voice noted. Neck: Normal inspection. Neck supple. FROM. No adenopathy. Thyroid Normal. No meningeal signs. No neck mass noted. CVS: Normal heart rate and rhythm. Heart sound normal. No murmurs noted. Pulses normal throughout. Respiratory: No respiratory distress. Painless inspiration. Breath sounds normal. No wheezes/rales/rhonchi noted. Chest nontender. No accessory muscle usage noted or decreased air movement noted. Abdomen: Soft and nontender. Bowel sounds normal in all 4 quadrants. No distention noted. No organomegaly noted. No visible injury noted. Back: No CVA tenderness. Full range of motion noted. Skin: Skin warm and dry. Normal skin color. Normal skin turgor. No rashes/lesions/lacerations noted. Extremities: No lower extremity edema. Extremities exhibit normal range of motion. Extremities nontender. Neuro: Oriented X 3. Cranial nerve exam: II-XII are grossly intact No motor deficit. No sensory deficit. Reflexes normal. Course Course Course Narrative: 82-year-old female well known to us with history of anxiety presented with multiple episodes of nonbloody watery diarrhea after attending a constitution party, patient left before full evaluation however labs are nonrevealing. Patient has low risk for life-threatening condition based on the exam and blood workup. Medications Administered Discontinued Medications Generic Name Dose Route Start Last Admin Trade Name Freq PRN Reason Stop Dose Admin Loperamide HCl 2 mg 12/17/22 07:17 12/17/22 07:32 Loperamide Hcl 2 Mg Capsule PO 12/17/22 07:18 Not Given ONCE ONE Medical Decision Making Lab Data 12/17/22 06:21 12/17/22 06:21 Labs: Lab Results 12/17/22 12/17/22 Range/Units 06:21 06:21 WBC 5.3 (4.8-10.8) X10*3/uL RBC 4.44 (4.20-5.50) X10*6/uL Hgb 12.5 (12.0-16.0) g/dl Hct 37.8 (37.0-47.0) % MCV 85.1 (80.0-98.0) fL MCH 28.2 (27.0-33.0) pg MCHC 33.1 (31.0-35.0) g/dl RDW 15.5 (11.0-16.0) % Plt Count 220 (160-400) X10*3/uL MPV 8.9 L (9.4-12.3) fL Immature Gran % (Auto) 0.4 (0.0-0.4) % Neut % (Auto) 64.2 (45-73) % Lymph % (Auto) 25.7 (20-40) % [place] % (Auto) 7.8 (2-11) % Eos % (Auto) 1.3 (0-4) % Baso % (Auto) 0.6 (0-2) % Lymph # (Auto) 1.4 (1.2-4.9) X10*3/uL [place] # (Auto) 0.4 (0.1-1.2) X10*3/uL Eos # (Auto) 0.1 (0.0-0.4) X10*3/uL Baso # (Auto) 0.0 (0.0-0.2) X10*3/uL Abs Immat Gran (auto) 0.02 (0.00-0.03) X10*3/uL Absolute Neuts (auto) 3.4 (2.0-8.3) x10*3/uL Absolute Nucleated RBC 0.000 (0.0-0.012) X10*3/uL Nucleated RBC % (auto) 0.0 (0.0-0.2) /100WBC Sodium 142 (135-145) mmol/L Potassium 4.0 (3.3-5.1) mmol/L Chloride 107 (96-108) mmol/L Carbon Dioxide 28 (22-29) mmol/L Anion Gap 11 L (12-20) BUN 19 H (9-16) mg/dL Creatinine 0.93 (0.5-1.4) mg/dL Estim Creat Clear Calc 42.7 Estimated GFR 58 Random Glucose 104 (60-115) mg/dL Calcium 9.6 (8.4-10.2) mg/dL Total Bilirubin 0.4 (0.0-1.0) mg/dL Direct Bilirubin < 0.2 (0.0-0.5) mg/dL AST 24 (5-31) U/L ALT 18 (0-31) U/L Alkaline Phosphatase 67 (39-117) U/L Total Protein 7.5 (6.5-8.0) g/dL Albumin 3.9 (3.5-5.0) g/dL Lipase 19 (8-78) U/L Discharge Plan Discharge Clinical Impression: Diarrhea, Anxiety Patient Disposition: Elopement Prescriptions: No Action alum-mag hydroxide-simeth [Mylanta Maximum Strength] 400-400-40 mg/5 mL suspension 10 ml PO TID PRN (Reason: indigestion) Qty: 1 0RF acetaminophen [Athenol] 325 mg tablet 650 mg PO Q6H PRN (Reason: fever or pain) Qty: 30 0RF sucralfate [Carafate] 100 mg/mL suspension 10 ml PO BID 14 Days Qty: 280 0RF prochlorperazine maleate [Compazine] 10 mg tablet 10 mg PO Q8H PRN (Reason: nausea and vomiting) Qty: 10 0RF pantoprazole 40 mg tablet,delayed release (DR/EC) 40 mg PO DAILY cholecalciferol (vitamin D3) 50 mcg (2,000 unit) capsule 50 mcg PO DAILY levothyroxine 50 mcg tablet 50 mcg PO DAILY famotidine 20 mg tablet 20 mg PO DAILY docusate sodium 100 mg capsule 100 mg PO BID 30 Days Qty: 60 3RF dicyclomine 10 mg capsule 10 mg PO TID PRN (Reason: abd pain) 30 Days Qty: 30 1RF alendronate 70 mg tablet 70 mg PO QWEEK lansoprazole 30 mg capsule,delayed release(DR/EC) 30 mg PO DAILY sucralfate 1 gram tablet 1 g PO TID Discharge Date/Time: 12/17/22 09:03
[2022-12-17 07:33] VITALS: BP 145/69; PULSE 74; RESP 18; O2SAT 94
--- NOTE | 2022-12-17 08:30 | PC.NURSE ---
Refuses immodium, ambulates w/o difficulty to bathroom.
--- NOTE | 2022-12-17 09:00 | PC.NURSE ---
Addendum entered by Miri Guidry 12/17/22 09:03: Pt locatd in [facility]. Attempted to convince to return to ED for completion of eval. Pt refused. A and ox 4. skin p/w/d. IV removed. Original Note: Pt found to have eloped from [facility].
== END 2022-12-17 09:03 | disposition left against medical advice (07) ==
PROVIDERS: Emergency Provider Emergency Medicine
DX: R19.7 Diarrhea, unspecified (principal); F41.9 Anxiety disorder, unspecified
CPT/HCPCS: 36415; 80053; 82248; 83690; 85025; 93005; 99283; 99285

== ENCOUNTER 2023-01-25 01:37 | Emergency (ER) | payer OTHER, SELFPAY ==
--- NOTE | 2023-01-25 | ECG_ITS ---
Test Reason : DIZZINESS Blood Pressure : / mmHG Vent. Rate : 068 BPM Atrial Rate : 068 BPM P-R Int : 210 ms QRS Dur : 088 ms QT Int : 406 ms P-R-T Axes : 073 -13 051 degrees QTc Int : 431 ms Sinus rhythm with sinus arrhythmia with 1st degree A-V block Moderate voltage criteria for LVH, may be normal variant ( R in aVL , [place] product ) Septal infarct , age undetermined Abnormal ECG When compared with ECG of 17-DEC-2022 05:54, HI interval has increased Septal infarct is now Present Referred By: Generic ED Physician Electronically Signed By:COURTNEY RIVERA
[2023-01-25 01:41] VITALS: BP 163/75; BP 168/82; PULSE 67; PULSE 68; RESP 18; TEMP 36.8; O2SAT 97; O2SAT 98; BMI 25.0
[2023-01-25 02:05] LABS: MANUAL DIFF FLAG NO
[2023-01-25 02:06] LABS: Basophils Percent Auto 0.6 % (0-2); Eosinophils Absolute Auto 0.1 X10*3/uL (0.0-0.4); Hematocrit 39.6 % (37.0-47.0); Imm Gran Abs Auto 0.01 X10*3/uL (0.00-0.03); Imm Gran Pct Auto 0.2 % (0.0-0.4); Lymphocytes Absolute Auto 2.2 X10*3/uL (1.2-4.9); Mean Corpuscular HGB Conc 32.8 g/dl (31.0-35.0); Mean Corpuscular Volume 85.2 fL (80.0-98.0); Mean Platelet Volume 9.7 fL (9.4-12.3); Monocytes Absolute Auto 0.5 X10*3/uL (0.1-1.2); Monocytes Percent Auto 9.4 % (2-11); Neutrophils Absolute Auto 2.6 x10*3/uL (2.0-8.3); Neutrophils Percent Auto 47.8 % (45-73); Platelet Count 199 X10*3/uL (160-400); Red Blood Count 4.65 X10*6/uL (4.20-5.50); Red Cell Distribution Width 15.4 % (11.0-16.0); White Blood Count 5.4 X10*3/uL (4.8-10.8)
--- NOTE | 2023-01-25 02:20 | ED.DIZZY ---
HPI - Dizziness General Chief Complaint: Dizziness Stated Complaint: Dizziness for a day/lost her [employer] Time Seen by Provider: 01/25/23 02:00 Source: patient Mode of arrival: ambulatory Limitations: no limitations History of Present Illness HPI Narrative: Patient history of anxiety does not have her PCP for last 2 days increased anxiety anxious complaining of dizziness nonspecific able to ambulate no lightheadedness no vertiginous feeling. Patient been here multiple times in the past for same. Denies anxiety but seems to be anxious Related Data Home Medications Medication Instructions Recorded Confirmed pantoprazole 40 mg tablet,delayed 40 mg PO DAILY 11/28/20 05/28/22 release cholecalciferol (vitamin D3) 50 50 mcg PO DAILY 11/13/21 05/28/22 mcg (2,000 unit) capsule levothyroxine 50 mcg tablet 50 mcg PO DAILY 11/13/21 05/28/22 famotidine 20 mg tablet 20 mg PO DAILY 05/28/22 05/28/22 alendronate 70 mg tablet 70 mg PO QWEEK 10/08/22 lansoprazole 30 mg capsule,delayed 30 mg PO DAILY 10/08/22 release sucralfate 1 gram tablet 1 g PO TID 10/08/22 Previous Rx's Medication Instructions Recorded aluminum-mag hydroxide-simethicone 10 ml PO TID PRN indigestion #1 ea 09/03/20 400 mg-400 mg-40 mg/5 mL oral susp (Mylanta Maximum Strength) acetaminophen 325 mg tablet 650 mg PO Q6H PRN fever or pain 09/27/20 (Athenol) #30 tabs sucralfate 100 mg/mL oral 10 ml PO BID 14 days #280 mL 10/16/20 suspension (Carafate) dicyclomine 10 mg capsule 10 mg PO TID PRN abd pain 30 days 05/28/22 #30 caps docusate sodium 100 mg capsule 100 mg PO BID 30 days #60 caps 05/28/22 prochlorperazine maleate 10 mg 10 mg PO Q8H PRN nausea and 07/02/22 tablet (Compazine) vomiting #10 tabs meclizine 12.5 mg tablet 12.5 mg PO TID PRN dizziness #20 01/25/23 tabs Allergies Allergy/AdvReac Type Severity Reaction Status Date / Time azithromycin [From ZITHROMAX] Allergy Severe GENERIC Verified 10/08/22 14:10 ONLY-SEVERE ABD PAIN, abdominal pain codeine [CODEINE] Allergy Intermediate NAUSEA & Verified 10/08/22 14:10 VOMITING,FAINTED, nausea, vomiting, syncope erythromycin base Allergy Intermediate HIVES, ABD Verified 10/08/22 14:10 [ERYTHROMYCIN BASE] PAIN promethazine [From PHENERGAN] Allergy Intermediate DIZZY / Verified 10/08/22 14:10 NAUSEATED amoxicillin [Prevpac] Allergy Unknown Unknown Verified 10/08/22 14:10 clarithromycin [Prevpac] Allergy Unknown Unknown Verified 10/08/22 14:10 Review of Systems Review of Systems: Yes all other systems are reviewed and are negative [facility] Past Medical History Medical History Anxiety Arthritis Bright red blood per rectum Constipation Dysphagia GERD (gastroesophageal reflux disease) GI bleed Hematuria of unknown cause History of anemia History of colitis Hx of breast cancer Hx of syncope Hypothyroid Weight loss, unintentional Surgical History H/O left mastectomy History of ankle surgery History of esophagogastroduodenoscopy (EGD) Hx of colonoscopy Family History Family History Father No problems noted. 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) Alcohol intake: never Patient Tobacco Use Status: Never used Tobacco Smoked in Last 30 Days: No Use of substances other than those prescribed or required for medical reasons: No Advance Directives: No Advance Directives Information Provided: No Advance Directives Date on File: 10/20/20 service: No Current occupational status: retired Physical Exam Vital Signs: Vital Signs: Last Vital Signs Temp 98.2 F 01/25/23 01:41 Pulse 71 01/25/23 03:48 Resp 18 01/25/23 01:41 BP 164/88 H 01/25/23 03:48 Pulse Ox 97 01/25/23 01:41 O2 Del Method 01/25/23 01:41 BMI result Body Mass Index 25.0 Appearance: Alert. Oriented X3. No acute distress. Anxious Eyes: PERRLA, No Nystagmus ENT: Pharynx normal. Oral Mucosa moist Neck: Normal inspection. Neck supple. CVS: Normal heart rate and rhythm. Pulses normal. Respiratory: No respiratory distress. Equal air entry bilateral, no wheezing/rales/rhonchi Abdomen: Soft and nontender. Bowel sounds are present, no mass palpable, no CVA tenderness Skin: Skin warm and dry. Normal skin color. Normal skin turgor. Extremities: No lower extremity edema. No calf tenderness Neuro: Oriented X 3. No motor deficit. No sensory deficit.No cerebellar signs , cranial nerves II-XII intact Medical Decision Making Medical Decision Making [facility] Narrative: Patient with anxiety with nonspecific dizziness been here multiple times for multiple problems labs are stable ambulatory steady gait , discharge patient Lab Data [facility] Lab Attestation statement: I reviewed the patient's lab results. 01/25/23 02:00 01/25/23 01:59 Labs: Lab Results 01/25/23 01/25/23 01/25/23 Range/Units 01:59 01:59 02:00 WBC 5.4 (4.8-10.8) X10*3/uL RBC 4.65 (4.20-5.50) X10*6/uL Hgb 13.0 (12.0-16.0) g/dl Hct 39.6 (37.0-47.0) % MCV 85.2 (80.0-98.0) fL MCH 28.0 (27.0-33.0) pg MCHC 32.8 (31.0-35.0) g/dl RDW 15.4 (11.0-16.0) % Plt Count 199 (160-400) X10*3/uL MPV 9.7 (9.4-12.3) fL Immature Gran % (Auto) 0.2 (0.0-0.4) % Neut % (Auto) 47.8 (45-73) % Lymph % (Auto) 40.0 (20-40) % [place] % (Auto) 9.4 (2-11) % Eos % (Auto) 2.0 (0-4) % Baso % (Auto) 0.6 (0-2) % Lymph # (Auto) 2.2 (1.2-4.9) X10*3/uL [place] # (Auto) 0.5 (0.1-1.2) X10*3/uL Eos # (Auto) 0.1 (0.0-0.4) X10*3/uL Baso # (Auto) 0.0 (0.0-0.2) X10*3/uL Abs Immat Gran (auto) 0.01 (0.00-0.03) X10*3/uL Absolute Neuts (auto) 2.6 (2.0-8.3) x10*3/uL Absolute Nucleated RBC 0.000 (0.0-0.012) X10*3/uL Nucleated RBC % (auto) 0.0 (0.0-0.2) /100WBC Sodium 144 (135-145) mmol/L Potassium 4.4 (3.3-5.1) mmol/L Chloride 108 (96-108) mmol/L Carbon Dioxide 27 (22-29) mmol/L Anion Gap 13 (12-20) BUN 17 H (9-16) mg/dL Creatinine 1.00 (0.5-1.4) mg/dL Estim Creat Clear Calc 39.0 Estimated GFR 53 Random Glucose 81 (60-115) mg/dL Calcium 9.8 (8.4-10.2) mg/dL Total Bilirubin 0.4 (0.0-1.0) mg/dL AST 30 (5-31) U/L ALT 24 (0-31) U/L Alkaline Phosphatase 60 (39-117) U/L Troponin I High Sens 4.8 (<3.5-17.0) ng/L Total Protein 7.8 (6.5-8.0) g/dL Albumin 4.2 (3.5-5.0) g/dL Discharge Plan Discharge Clinical Impression: Dizziness Patient Disposition: Home, Self-Care Instructions: Dizziness (ED) Additional Instructions: Drink plenty of fluid continue to take your medications For acute dizziness take meclizine 1 tablet every 8 hours as needed Prescriptions: New meclizine 12.5 mg tablet 12.5 mg PO TID PRN (Reason: dizziness) Qty: 20 0RF No Action alum-mag hydroxide-simeth [Mylanta Maximum Strength] 400-400-40 mg/5 mL suspension 10 ml PO TID PRN (Reason: indigestion) Qty: 1 0RF acetaminophen [Athenol] 325 mg tablet 650 mg PO Q6H PRN (Reason: fever or pain) Qty: 30 0RF sucralfate [Carafate] 100 mg/mL suspension 10 ml PO BID 14 Days Qty: 280 0RF prochlorperazine maleate [Compazine] 10 mg tablet 10 mg PO Q8H PRN (Reason: nausea and vomiting) Qty: 10 0RF pantoprazole 40 mg tablet,delayed release (DR/EC) 40 mg PO DAILY cholecalciferol (vitamin D3) 50 mcg (2,000 unit) capsule 50 mcg PO DAILY levothyroxine 50 mcg tablet 50 mcg PO DAILY famotidine 20 mg tablet 20 mg PO DAILY docusate sodium 100 mg capsule 100 mg PO BID 30 Days Qty: 60 3RF dicyclomine 10 mg capsule 10 mg PO TID PRN (Reason: abd pain) 30 Days Qty: 30 1RF alendronate 70 mg tablet 70 mg PO QWEEK lansoprazole 30 mg capsule,delayed release(DR/EC) 30 mg PO DAILY sucralfate 1 gram tablet 1 g PO TID
[2023-01-25 02:41] LABS: Alanine Aminotransferase 24 U/L (0-31); Albumin Level 4.2 g/dL (3.5-5.0); Alkaline Phosphatase 60 U/L (39-117); Anion Gap 13 (12-20); Aspartate Amino Transferase 30 U/L (5-31); Bilirubin Total 0.4 mg/dL (0.0-1.0); Blood Urea Nitrogen 17 mg/dL (9-16); Calcium 9.8 mg/dL (8.4-10.2); Carbon Dioxide 27 mmol/L (22-29); Chloride 108 mmol/L (96-108); Estimated Glomerular Filt Rate 53; Glucose Random 81 mg/dL (60-115); Potassium 4.4 mmol/L (3.3-5.1); Sodium 144 mmol/L (135-145); Total Protein 7.8 g/dL (6.5-8.0)
[2023-01-25 02:48] LABS: Troponin-I High Sensitivity 4.8 ng/L (<3.5-17.0)
--- NOTE | 2023-01-25 03:08 | PC.NURSE ---
Pt A&Ox3, reports worsening dizziness that started 2 weeks ago. Pt denies any pain. States the room is lightly spinning. Reports needing more help then usual because airplane cabin attendant never came back to her home to help.
[2023-01-25 03:46] VITALS: BP 157/95; PULSE 71
[2023-01-25 03:47] VITALS: BP 165/82; PULSE 72
[2023-01-25 03:48] VITALS: BP 164/88; PULSE 71
[2023-01-25 06:10] VITALS: BP 153/73; PULSE 69; RESP 18; TEMP 36.7; O2SAT 96
== END 2023-01-25 07:44 | disposition home or self-care (01) ==
PROVIDERS: Emergency Provider Internal Medicine
DX: R42 Dizziness and giddiness (principal); Z79.899 Other long term (current) drug therapy
CPT/HCPCS: 36415; 80053; 84484; 85025; 93005; 99283; 99285

== ENCOUNTER 2023-01-30 16:23 | Emergency (ER) | payer OTHER, SELFPAY ==
[2023-01-30 16:31] VITALS: BP 180/90; PULSE 64
[2023-01-30 17:11] VITALS: BP 130/58; PULSE 68; RESP 18; TEMP 37; O2SAT 95; BMI 23.0
--- NOTE | 2023-01-30 17:13 | ED_ITS ---
HPI - General Adult General Chief complaint: Dizziness Stated complaint: dizziness Related Data Home Medications Medication Instructions Recorded Confirmed pantoprazole 40 mg tablet,delayed 40 mg PO DAILY 11/28/20 05/28/22 release cholecalciferol (vitamin D3) 50 50 mcg PO DAILY 11/13/21 05/28/22 mcg (2,000 unit) capsule famotidine 20 mg tablet 20 mg PO DAILY 05/28/22 05/28/22 alendronate 70 mg tablet 70 mg PO QWEEK 10/08/22 lansoprazole 30 mg capsule,delayed 30 mg PO DAILY 10/08/22 release sucralfate 1 gram tablet 1 g PO TID 10/08/22 levothyroxine 75 mcg tablet 75 mcg PO DAILY 06/21/23 Previous Rx's Medication Instructions Recorded aluminum-mag hydroxide-simethicone 10 ml PO TID PRN indigestion #1 ea 09/03/20 400 mg-400 mg-40 mg/5 mL oral susp (Mylanta Maximum Strength) acetaminophen 325 mg tablet 650 mg PO Q6H PRN fever or pain 09/27/20 (Athenol) #30 tabs sucralfate 100 mg/mL oral 10 ml PO BID 14 days #280 mL 10/16/20 suspension (Carafate) dicyclomine 10 mg capsule 10 mg PO TID PRN abd pain 30 days 05/28/22 #30 caps docusate sodium 100 mg capsule 100 mg PO BID 30 days #60 caps 05/28/22 prochlorperazine maleate 10 mg 10 mg PO Q8H PRN nausea and 07/02/22 tablet (Compazine) vomiting #10 tabs meclizine 25 mg tablet 25 mg PO TID PRN dizziness #14 tabs 02/24/23 albuterol sulfate 90 mcg/actuation 2 puff inhalation Q4-6H PRN 03/22/23 aerosol inhaler shortness of breath or wheezing #8.5 grams nystatin 100,000 unit/gram topical 1 appl topical BID #30 grams 03/28/23 powder (Nyamyc) sucralfate 100 mg/mL oral 10 ml PO BID #420 mL 06/13/23 suspension (Carafate) Allergies Allergy/AdvReac Type Severity Reaction Status Date / Time azithromycin [From ZITHROMAX] Allergy Severe GENERIC Verified 06/21/23 11:35 ONLY-SEVERE ABD PAIN, abdominal pain codeine [CODEINE] Allergy Intermediate NAUSEA & Verified 06/21/23 11:35 VOMITING,FAINTED, nausea, vomiting, syncope erythromycin base Allergy Intermediate HIVES, ABD Verified 06/21/23 11:35 [ERYTHROMYCIN BASE] PAIN promethazine [From PHENERGAN] Allergy Intermediate DIZZY / Verified 06/21/23 11:35 NAUSEATED amoxicillin [Prevpac] Allergy Unknown Unknown Verified 06/21/23 11:35 clarithromycin [Prevpac] Allergy Unknown Unknown Verified 06/21/23 11:35 [facility] Past Medical History Medical History Anxiety Arthritis Bright red blood per rectum Constipation Dysphagia GERD (gastroesophageal reflux disease) GI bleed Hematuria of unknown cause History of anemia History of colitis Hx of breast cancer Hx of syncope Hypothyroid Weight loss, unintentional Surgical History H/O left mastectomy History of ankle surgery History of esophagogastroduodenoscopy (EGD) Hx of colonoscopy Family History Family History Father No problems noted. 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 have visiting nurse or other home services: Yes ([employer]) Alcohol intake: never Patient Tobacco Use Status: Never used Tobacco Advance Directives: Yes Advance Directives on File: Yes Advance Directives Date on File: 10/20/20 service: No Current occupational status: retired Physical Exam ED Vital Signs: BMI result Body Mass Index 23.0 Course Course Course Narrative: RME- 83-year-old primarily [place]-speaking female presents for evaluation of ?vertigo. ? Patient's speech is clear, no focal weakness. No facial droop. Patient complains of dizziness normally. She states that she does not take any medication for vertigo. Labs ordered Medical Decision Making Lab Data 01/30/23 17:24 01/30/23 17:24 Labs: Lab Results 01/30/23 01/30/23 Range/Units 17:24 17:24 WBC 5.5 (4.8-10.8) X10*3/uL RBC 4.54 (4.20-5.50) X10*6/uL Hgb 12.6 (12.0-16.0) g/dl Hct 38.6 (37.0-47.0) % MCV 85.0 (80.0-98.0) fL MCH 27.8 (27.0-33.0) pg MCHC 32.6 (31.0-35.0) g/dl RDW 15.3 (11.0-16.0) % Plt Count 205 (160-400) X10*3/uL MPV 9.6 (9.4-12.3) fL Immature Gran % (Auto) 0.2 (0.0-0.4) % Neut % (Auto) 65.0 (45-73) % Lymph % (Auto) 25.8 (20-40) % [place] % (Auto) 7.8 (2-11) % Eos % (Auto) 0.7 (0-4) % Baso % (Auto) 0.5 (0-2) % Lymph # (Auto) 1.4 (1.2-4.9) X10*3/uL [place] # (Auto) 0.4 (0.1-1.2) X10*3/uL Eos # (Auto) 0.0 (0.0-0.4) X10*3/uL Baso # (Auto) 0.0 (0.0-0.2) X10*3/uL Abs Immat Gran (auto) 0.01 (0.00-0.03) X10*3/uL Absolute Neuts (auto) 3.6 (2.0-8.3) x10*3/uL Absolute Nucleated RBC 0.000 (0.0-0.012) X10*3/uL Nucleated RBC % (auto) 0.0 (0.0-0.2) /100WBC Sodium 140 (135-145) mmol/L Potassium 4.4 (3.3-5.1) mmol/L Chloride 106 (96-108) mmol/L Carbon Dioxide 26 (22-29) mmol/L Anion Gap 12 (12-20) BUN 21 H (9-16) mg/dL Creatinine 1.22 (0.5-1.4) mg/dL Estim Creat Clear Calc 29.3 Estimated GFR 42 Random Glucose 150 H (60-115) mg/dL Calcium 9.9 (8.4-10.2) mg/dL Total Bilirubin 0.4 (0.0-1.0) mg/dL AST 23 (5-31) U/L ALT 21 (0-31) U/L Alkaline Phosphatase 60 (39-117) U/L Total Protein 7.5 (6.5-8.0) g/dL Albumin 4.1 (3.5-5.0) g/dL Discharge Plan Discharge Clinical Impression: Dizziness Patient Disposition: Elopement Prescriptions: No Action alum-mag hydroxide-simeth [Mylanta Maximum Strength] 400-400-40 mg/5 mL suspension 10 ml PO TID PRN (Reason: indigestion) Qty: 1 0RF acetaminophen [Athenol] 325 mg tablet 650 mg PO Q6H PRN (Reason: fever or pain) Qty: 30 0RF sucralfate [Carafate] 100 mg/mL suspension 10 ml PO BID 14 Days Qty: 280 0RF prochlorperazine maleate [Compazine] 10 mg tablet 10 mg PO Q8H PRN (Reason: nausea and vomiting) Qty: 10 0RF meclizine 25 mg tablet 25 mg PO TID PRN (Reason: dizziness) Qty: 14 0RF albuterol sulfate 90 mcg/actuation HFA aerosol inhaler 2 puff inhalation Q4-6H PRN (Reason: shortness of breath or wheezing) Qty: 8.5 0RF nystatin [Nyamyc] 100,000 unit/gram powder 1 appl topical BID Qty: 30 0RF sucralfate [Carafate] 100 mg/mL suspension 10 ml PO BID Qty: 420 0RF pantoprazole 40 mg tablet,delayed release (DR/EC) 40 mg PO DAILY cholecalciferol (vitamin D3) 50 mcg (2,000 unit) capsule 50 mcg PO DAILY famotidine 20 mg tablet 20 mg PO DAILY docusate sodium 100 mg capsule 100 mg PO BID 30 Days Qty: 60 3RF dicyclomine 10 mg capsule 10 mg PO TID PRN (Reason: abd pain) 30 Days Qty: 30 1RF alendronate 70 mg tablet 70 mg PO QWEEK lansoprazole 30 mg capsule,delayed release(DR/EC) 30 mg PO DAILY sucralfate 1 gram tablet 1 g PO TID levothyroxine 75 mcg tablet 75 mcg PO DAILY Discharge Date/Time: 01/31/23 00:45
[2023-01-30 17:33] LABS: MANUAL DIFF FLAG NO
[2023-01-30 17:35] LABS: Basophils Percent Auto 0.5 % (0-2); Eosinophils Percent Auto 0.7 % (0-4); Hematocrit 38.6 % (37.0-47.0); Hemoglobin 12.6 g/dl (12.0-16.0); Imm Gran Abs Auto 0.01 X10*3/uL (0.00-0.03); Imm Gran Pct Auto 0.2 % (0.0-0.4); Lymphocytes Absolute Auto 1.4 X10*3/uL (1.2-4.9); Lymphocytes Percent Auto 25.8 % (20-40); Mean Corpuscular HGB Conc 32.6 g/dl (31.0-35.0); Mean Corpuscular Hemoglobin 27.8 pg (27.0-33.0); Mean Platelet Volume 9.6 fL (9.4-12.3); Monocytes Absolute Auto 0.4 X10*3/uL (0.1-1.2); Monocytes Percent Auto 7.8 % (2-11); Neutrophils Absolute Auto 3.6 x10*3/uL (2.0-8.3); Platelet Count 205 X10*3/uL (160-400); Red Blood Count 4.54 X10*6/uL (4.20-5.50); Red Cell Distribution Width 15.3 % (11.0-16.0); White Blood Count 5.5 X10*3/uL (4.8-10.8)
[2023-01-30 18:12] LABS: Alanine Aminotransferase 21 U/L (0-31); Albumin Level 4.1 g/dL (3.5-5.0); Alkaline Phosphatase 60 U/L (39-117); Anion Gap 12 (12-20); Aspartate Amino Transferase 23 U/L (5-31); Bilirubin Total 0.4 mg/dL (0.0-1.0); Blood Urea Nitrogen 21 mg/dL (9-16); Calcium 9.9 mg/dL (8.4-10.2); Carbon Dioxide 26 mmol/L (22-29); Chloride 106 mmol/L (96-108); Creatinine Clr Calc Pharmacy 29.3; Estimated Glomerular Filt Rate 42; Glucose Random 150 mg/dL (60-115); Potassium 4.4 mmol/L (3.3-5.1); Sodium 140 mmol/L (135-145); Total Protein 7.5 g/dL (6.5-8.0)
== END 2023-01-31 00:45 | disposition left against medical advice (07) ==
PROVIDERS: Physician Assistant; Emergency Provider Emergency Medicine
DX: R42 Dizziness and giddiness (principal); Z79.899 Other long term (current) drug therapy
CPT/HCPCS: 36415; 80053; 85025; 99281; 99283

== ENCOUNTER 2023-02-24 10:54 | Emergency (ER) | payer OTHER, SELFPAY ==
--- NOTE | ~2023-02-24 | CT_ITS ---
Examination: CT brain without contrast. Chest x-ray. Clinical indications: Dizziness. COMPARISON: Chest x-ray 11/07/[address] brain 07/09/2022. TECHNIQUE: 5 mm thin axial and reformatted 2 mm thin sagittal coronal images of brain were obtained. DLP [id number]. This CT examination was performed using dose optimization technique as appropriate, variously including the following: Automated exposure control Adjustment of MA and/or KV according to patient size(this includes techniques or standardized protocols for targeted exams where dose is matched to indication/reason for exam; extremities or head. Use of iterative reconstruction techniques. Chest x-ray 2 views. FINDINGS: There is no acute intra-axial, extra-axial bleed, masses or midline shift. There is no acute infarction evolution. There is no edema. There is periventricular hypodensity in both cerebral hemispheres without mass effect. The lateral ventricles are symmetrical but enlarged similar to previous study. Prominence of cortical sulci is stable. There is an old left lateral temporal lobe hypodensity unchanged since 11/18/2021. There is mild dilatation of the temporal horn lateral ventricle. Bone windows reveal no calvarial abnormality. There is no scalp soft tissue abnormality. Chest x-ray: The lungs are well-expanded and clear. There is mild bilateral apical parenchymal thickening and parenchymal scarring. Heart size and pulmonary vascularity is normal. No gross bony abnormality seen. There is minimal dextroscoliosis. CT/CT head/brain wo IV con IMPRESSION: No acute intracranial process seen. 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 Mild cerebral volume loss with chronic small vessel ischemic changes. There is bilateral apical pleural thickening and parenchymal scarring. No acute cardiopulmonary process seen.
[2023-02-24 11:04] VITALS: BP 164/84; PULSE 72; O2SAT 98
[2023-02-24 11:15] VITALS: BP 137/64; PULSE 70; RESP 15; TEMP 36.7; O2SAT 94; BMI 23.8
--- NOTE | 2023-02-24 11:16 | ECG_ITS ---
Test Reason : dixxy Blood Pressure : / mmHG Vent. Rate : 067 BPM Atrial Rate : 067 BPM P-R Int : 180 ms QRS Dur : 086 ms QT Int : 408 ms P-R-T Axes : 075 -10 046 degrees QTc Int : 431 ms Normal sinus rhythm Moderate voltage criteria for LVH, may be normal variant ( R in aVL , Glen product ) Septal infarct (cited on or before 25-JAN-2023) Abnormal ECG When compared with ECG of 25-JAN-2023 02:14, NV interval has decreased Referred By: Kierra Malik Electronically Signed By:COURTNEY RIVERA
[2023-02-24] MEDS: Meclizine HCl 25 MG TABLET PO (11:25)
--- NOTE | 2023-02-24 11:25 | ED_ITS ---
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 Patient describes the feeling as her body is spinning. She tells me she has a history of vertigo and this feels similar but she has no medication at home for vertigo. She denies any nausea, vomiting, vision changes, weakness, numbness, tingling of the extremities. Patient denies any speech change, chest pain, shortness of breath. Per EMS patient was ambulatory from her apartment to the ambulance Related Data Home Medications Medication Instructions Recorded Confirmed pantoprazole 40 mg tablet,delayed 40 mg PO DAILY 11/28/20 05/28/22 release cholecalciferol (vitamin D3) 50 50 mcg PO DAILY 11/13/21 05/28/22 mcg (2,000 unit) capsule levothyroxine 50 mcg tablet 50 mcg PO DAILY 11/13/21 05/28/22 famotidine 20 mg tablet 20 mg PO DAILY 05/28/22 05/28/22 alendronate 70 mg tablet 70 mg PO QWEEK 10/08/22 lansoprazole 30 mg capsule,delayed 30 mg PO DAILY 10/08/22 release sucralfate 1 gram tablet 1 g PO TID 10/08/22 Previous Rx's Medication Instructions Recorded aluminum-mag hydroxide-simethicone 10 ml PO TID PRN indigestion #1 ea 09/03/20 400 mg-400 mg-40 mg/5 mL oral susp (Mylanta Maximum Strength) acetaminophen 325 mg tablet 650 mg PO Q6H PRN fever or pain 09/27/20 (Athenol) #30 tabs sucralfate 100 mg/mL oral 10 ml PO BID 14 days #280 mL 10/16/20 suspension (Carafate) dicyclomine 10 mg capsule 10 mg PO TID PRN abd pain 30 days 05/28/22 #30 caps docusate sodium 100 mg capsule 100 mg PO BID 30 days #60 caps 05/28/22 prochlorperazine maleate 10 mg 10 mg PO Q8H PRN nausea and 07/02/22 tablet (Compazine) vomiting #10 tabs meclizine 12.5 mg tablet 12.5 mg PO TID PRN dizziness #20 01/25/23 tabs meclizine 25 mg tablet 25 mg PO TID PRN dizziness #14 tabs 02/24/23 Allergies Allergy/AdvReac Type Severity Reaction Status Date / Time azithromycin [From ZITHROMAX] Allergy Severe GENERIC Verified 01/30/23 17:11 ONLY-SEVERE ABD PAIN, abdominal pain codeine [CODEINE] Allergy Intermediate NAUSEA & Verified 01/30/23 17:11 VOMITING,FAINTED, nausea, vomiting, syncope erythromycin base Allergy Intermediate HIVES, ABD Verified 01/30/23 17:11 [ERYTHROMYCIN BASE] PAIN promethazine [From PHENERGAN] Allergy Intermediate DIZZY / Verified 01/30/23 17:11 NAUSEATED amoxicillin [Prevpac] Allergy Unknown Unknown Verified 01/30/23 17:11 clarithromycin [Prevpac] Allergy Unknown Unknown Verified 01/30/23 17:11 Review of Systems Review of Systems: Yes all other systems are reviewed and are negative Constitutional: Constitutional: Reports no additional constitutional complaints, Denies body ache(s), Denies chills, Denies fever(s), Denies headache(s) and Denies weakness Eyes: Eyes: Reports no additional eye complaints and Denies change in vision ENT: Reports system reviewed and no additional complaints, except as documented, Reports dizziness, Denies headache(s), Denies mouth lesions, Denies nasal congestion, Denies nasal discharge and Denies neck pain Cardiovascular: Cardiovascular: Reports no additional cardiovascular complaints, Denies chest pain, Denies leg edema and Denies dyspnea Respiratory: Respiratory: Reports no additional respiratory complaints, Denies cough and Denies dyspnea Gastrointestinal: Gastrointestinal: Reports no additional gastrointestinal complaints, Denies abdominal pain, Denies diarrhea, Denies nausea and Denies vomiting Genitourinary: Genitourinary: Reports no additional female genitourinary complaints and Denies urinary incontinence Musculoskeletal: Musculoskeletal: Reports no additional musculoskeletal complaints, Denies back pain, Denies arthralgias, Denies joint swelling, Denies neck pain, Denies numbness and Denies tingling Integumentary/Breasts: Skin/Breast: Reports system reviewed and no additional complaints, except as docu and Denies rash Neurologic: Reports system reviewed and no additional complaints, except as documented, Denies Abnormal speech present, Reports dizziness, Denies headache(s), Denies numbness, Denies tingling and Denies weakness PMFSH Past Medical History Attestation statement: The following information was validated with the patient. Source: old records reviewed and nursing notes reviewed Medical History Anxiety Arthritis Bright red blood per rectum Constipation Dysphagia GERD (gastroesophageal reflux disease) GI bleed Hematuria of unknown cause History of anemia History of colitis Hx of breast cancer Hx of syncope Hypothyroid Weight loss, unintentional Surgical History H/O left mastectomy History of ankle surgery History of esophagogastroduodenoscopy (EGD) Hx of colonoscopy Family History Family History Father No problems noted. 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 have visiting nurse or other home services: Yes ([employer]) Alcohol intake: never Patient Tobacco Use Status: Never used Tobacco Smoked in Last 30 Days: No Use of substances other than those prescribed or required for medical reasons: No Advance Directives: No Advance Directives Information Provided: No Advance Directives Date on File: 10/20/20 service: No Current occupational status: retired Physical Exam Vital Signs: Vital Signs: Last Vital Signs Temp 98.1 F 02/24/23 11:15 Pulse 70 02/24/23 12:58 Resp 18 02/24/23 12:58 BP 142/79 H 02/24/23 12:58 Pulse Ox 97 02/24/23 12:58 O2 Del Method Room Air 02/24/23 12:58 BMI result Body Mass Index 23.8 Const: General: cooperative, healthy appearing, comfortable and no acute distress Orientation/consciousness: patient oriented x3 Limitations: no limitations HEENT: Head: Yes normal to inspection Ears: hearing grossly normal bilaterally and TM's normal bilaterally General nose exam: Normal external nose present Face and sinus: Yes normal facial exam Mouth: Normal oral and palatal mucosa present Throat: Yes posterior oropharynx normal Eyes: General: appearance normal, both eyes and all related structures Pupils: Equal, round and reactive pupils present Neck: Neck: Yes normal visual inspection Chest: Chest palpation & inspection: normal inspection of the chest Resp: Effort & Inspection: normal respiratory effort Auscultation: clear to auscultation bilaterally Cardio: Rate: regular rate Rhythm: regular rhythm Peripheral pulses: Peripheral pulses 2+ throughout GI: Inspection: Yes normal to inspection Palpation (GI): Soft to palpation and nontender Auscultation: normal bowel sounds Back/Spine/Pelvis: Thoracic/Lumbar Spine: thoracic and lumbar spine normal to inspection Skin: General skin exam: no rashes or lesions noted Neuro: General: patient oriented x3, moves all extremities, no focal motor deficits and normal sensation to monofilament Cranial nerves: Yes CN's II-XII intact bilaterally, Yes Equal, round and reactive pupils present, Yes Bilaterally intact EOM present, Yes Nystagmus not present, Yes Normal facial strength present and Yes Midline tongue present Cognition (Neuro): normal cognition Speech: No Abnormal speech present Gait exam (Neuro): Normal gait present Motor exam (neuro): 5/5 motor strength present throughout Sensory Exam: Normal double simultaneous stimulation for sensation Coordination: [id number] test normal, [id number] test normal and tandem gait normal Extrem: General: Yes normal to inspection Course Course Course Narrative: Labs are unremarkable. Imaging shows no acute finding. Orthostatics are negative. Patient reports feeling improved after receiving meclizine and is up ambulatory to the bathroom with a steady gait. Likely vertigo. Patient will be discharged home with meclizine p.r.n.. Reviewed worrisome signs and symptoms of when to return to the emergency room. Comfortable plan for discharge home. Medications Administered Discontinued Medications Generic Name Dose Route Start Last Admin Trade Name Freq PRN Reason Stop Dose Admin Meclizine HCl 25 mg 02/24/23 11:15 02/24/23 11:25 Meclizine Hcl 25 Mg Tablet PO 02/24/23 11:16 25 mg ONCE ONE Administration Medical Decision Making Medical Decision Making [facility] Narrative: 83-year-old female here with reports of dizziness since waking with a history of vertigo. Normal neuro exam with no cerebellar it deficits. Vitals are stable Will check labs, CT head, orthostatics, EKG Will give meclizine Differential Diagnosis Differential Diagnoses: The differential diagnosis associated with the presentation includes Vertigo, ACS, ICH versus CVA, orthostatic hypotension, anemia, electrolyte abnormality Lab Data MDM Lab Attestation statement: I reviewed the patient's lab results. 02/24/23 12:04 02/24/23 12:04 Labs: Lab Results 02/24/23 02/24/23 02/24/23 Range/Units 12:04 12:04 12:04 WBC 4.9 (4.8-10.8) X10*3/uL RBC 4.50 (4.20-5.50) X10*6/uL Hgb 12.7 (12.0-16.0) g/dl Hct 38.9 (37.0-47.0) % MCV 86.4 (80.0-98.0) fL MCH 28.2 (27.0-33.0) pg MCHC 32.6 (31.0-35.0) g/dl RDW 14.8 (11.0-16.0) % Plt Count 196 (160-400) X10*3/uL MPV 9.2 L (9.4-12.3) fL Immature Gran % (Auto) 0.2 (0.0-0.4) % Neut % (Auto) 58.9 (45-73) % Lymph % (Auto) 29.8 (20-40) % [place] % (Auto) 9.3 (2-11) % Eos % (Auto) 1.4 (0-4) % Baso % (Auto) 0.4 (0-2) % Lymph # (Auto) 1.5 (1.2-4.9) X10*3/uL [place] # (Auto) 0.5 (0.1-1.2) X10*3/uL Eos # (Auto) 0.1 (0.0-0.4) X10*3/uL Baso # (Auto) 0.0 (0.0-0.2) X10*3/uL Abs Immat Gran (auto) 0.01 (0.00-0.03) X10*3/uL Absolute Neuts (auto) 2.9 (2.0-8.3) x10*3/uL Absolute Nucleated RBC 0.000 (0.0-0.012) X10*3/uL Nucleated RBC % (auto) 0.0 (0.0-0.2) /100WBC PT (10.0-13.1) SEC INR (0.9-1.1) Sodium 140 (135-145) mmol/L Potassium 4.2 (3.3-5.1) mmol/L Chloride 106 (96-108) mmol/L Carbon Dioxide 28 (22-29) mmol/L Anion Gap 10 L (12-20) BUN 20 H (9-16) mg/dL Creatinine 0.98 (0.5-1.4) mg/dL Estim Creat Clear Calc 34.9 Estimated GFR 54 Random Glucose 111 (60-115) mg/dL Calcium 9.8 (8.4-10.2) mg/dL Magnesium 2.3 (1.6-2.6) mg/dL Total Bilirubin 0.5 (0.0-1.0) mg/dL Direct Bilirubin < 0.2 (0.0-0.5) mg/dL AST 22 (5-31) U/L ALT 21 (0-31) U/L Alkaline Phosphatase 62 (39-117) U/L Troponin I High Sens (<3.5-17.0) ng/L Total Protein 7.2 (6.5-8.0) g/dL Albumin 4.0 (3.5-5.0) g/dL Urine Color Urine Appearance Urine pH (5.0-9.0) Ur Specific [place] (1.005-1.025) Urine Protein (Neg-Trace) mg/dL Urine Glucose (UA) (Negative) mg/dL Urine Ketones (Negative) mg/dL Urine Blood (Negative) Urine Nitrite (Negative) Ur Leukocyte Esterase (Negative) COVID-19 (LYUBOV) Negative (Negative) COVID-19 Clin Com See Note 02/24/23 02/24/23 02/24/23 Range/Units 12:04 12:04 12:48 WBC (4.8-10.8) X10*3/uL RBC (4.20-5.50) X10*6/uL Hgb (12.0-16.0) g/dl Hct (37.0-47.0) % MCV (80.0-98.0) fL MCH (27.0-33.0) pg MCHC (31.0-35.0) g/dl RDW (11.0-16.0) % Plt Count (160-400) X10*3/uL MPV (9.4-12.3) fL Immature Gran % (Auto) (0.0-0.4) % Neut % (Auto) (45-73) % Lymph % (Auto) (20-40) % [place] % (Auto) (2-11) % Eos % (Auto) (0-4) % Baso % (Auto) (0-2) % Lymph # (Auto) (1.2-4.9) X10*3/uL [place] # (Auto) (0.1-1.2) X10*3/uL Eos # (Auto) (0.0-0.4) X10*3/uL Baso # (Auto) (0.0-0.2) X10*3/uL Abs Immat Gran (auto) (0.00-0.03) X10*3/uL Absolute Neuts (auto) (2.0-8.3) x10*3/uL Absolute Nucleated RBC (0.0-0.012) X10*3/uL Nucleated RBC % (auto) (0.0-0.2) /100WBC PT 11.4 (10.0-13.1) SEC INR 1.0 (0.9-1.1) Sodium (135-145) mmol/L Potassium (3.3-5.1) mmol/L Chloride (96-108) mmol/L Carbon Dioxide (22-29) mmol/L Anion Gap (12-20) BUN (9-16) mg/dL Creatinine (0.5-1.4) mg/dL Estim Creat Clear Calc Estimated GFR Random Glucose (60-115) mg/dL Calcium (8.4-10.2) mg/dL Magnesium (1.6-2.6) mg/dL Total Bilirubin (0.0-1.0) mg/dL Direct Bilirubin (0.0-0.5) mg/dL AST (5-31) U/L ALT (0-31) U/L Alkaline Phosphatase (39-117) U/L Troponin I High Sens < 3.5 (<3.5-17.0) ng/L Total Protein (6.5-8.0) g/dL Albumin (3.5-5.0) g/dL Urine Color Yellow Urine Appearance Clear Urine pH 7.0 (5.0-9.0) Ur Specific [place] 1.015 (1.005-1.025) Urine Protein Negative (Neg-Trace) mg/dL Urine Glucose (UA) Negative (Negative) mg/dL Urine Ketones Negative (Negative) mg/dL Urine Blood Negative (Negative) Urine Nitrite Negative (Negative) Ur Leukocyte Esterase Negative (Negative) COVID-19 (LYUBOV) (Negative) COVID-19 Clin Com Independent Interpretation I performed an independent interpretation of an: EKG, Plain X-Ray and CT Scan Interpretation: I independently reviewed the EKG which was normal sinus rhythm with a rate of 67, normal [place], normal QRS normal QT Independently reviewed CT head and agree with radiologist's report. Independently reviewed the chest x-ray and agree with radiologist's report. Radiology Impression Discussion of test interpretation with radiology: I have reviewed the radiologist's reading. Independent Historian Clinical information obtained from an independent historian. History obtained from or confirmed by: EMS Discharge Plan Discharge Clinical Impression: Benign paroxysmal positional vertigo Patient Disposition: Home, Self-Care Instructions: Vertigo (DC) Additional Instructions: Cambie de posici?n lentamente. aseg?rese de estar bebiendo muchos l?quidos. Sarmiento an?lisis de mike e im?genes son normales. use la meclizina seg?n sea necesario para los mareos. Seguimiento con m?dico de atenci?n primaria ambulatorio Change positions slowly.? make sure that you are drinking plenty of fluids.? Your blood work and imaging are normal.? use the meclizine as needed for diz ziness.? Follow-up with primary care doctor outpatient Prescriptions: New meclizine 25 mg tablet 25 mg PO TID PRN (Reason: dizziness) Qty: 14 0RF No Action alum-mag hydroxide-simeth [Mylanta Maximum Strength] 400-400-40 mg/5 mL suspension 10 ml PO TID PRN (Reason: indigestion) Qty: 1 0RF acetaminophen [Athenol] 325 mg tablet 650 mg PO Q6H PRN (Reason: fever or pain) Qty: 30 0RF sucralfate [Carafate] 100 mg/mL suspension 10 ml PO BID 14 Days Qty: 280 0RF prochlorperazine maleate [Compazine] 10 mg tablet 10 mg PO Q8H PRN (Reason: nausea and vomiting) Qty: 10 0RF meclizine 12.5 mg tablet 12.5 mg PO TID PRN (Reason: dizziness) Qty: 20 0RF pantoprazole 40 mg tablet,delayed release (DR/EC) 40 mg PO DAILY cholecalciferol (vitamin D3) 50 mcg (2,000 unit) capsule 50 mcg PO DAILY levothyroxine 50 mcg tablet 50 mcg PO DAILY famotidine 20 mg tablet 20 mg PO DAILY docusate sodium 100 mg capsule 100 mg PO BID 30 Days Qty: 60 3RF dicyclomine 10 mg capsule 10 mg PO TID PRN (Reason: abd pain) 30 Days Qty: 30 1RF alendronate 70 mg tablet 70 mg PO QWEEK lansoprazole 30 mg capsule,delayed release(DR/EC) 30 mg PO DAILY sucralfate 1 gram tablet 1 g PO TID Referrals: [facility] [Primary Care Provider] - 1 week Print Language: Israeli
[2023-02-24 12:09] LABS: MANUAL DIFF FLAG NO
[2023-02-24 12:11] LABS: Basophils Percent Auto 0.4 % (0-2); Eosinophils Absolute Auto 0.1 X10*3/uL (0.0-0.4); Eosinophils Percent Auto 1.4 % (0-4); Hematocrit 38.9 % (37.0-47.0); Hemoglobin 12.7 g/dl (12.0-16.0); Imm Gran Abs Auto 0.01 X10*3/uL (0.00-0.03); Imm Gran Pct Auto 0.2 % (0.0-0.4); Lymphocytes Absolute Auto 1.5 X10*3/uL (1.2-4.9); Lymphocytes Percent Auto 29.8 % (20-40); Mean Corpuscular HGB Conc 32.6 g/dl (31.0-35.0); Mean Corpuscular Hemoglobin 28.2 pg (27.0-33.0); Mean Corpuscular Volume 86.4 fL (80.0-98.0); Mean Platelet Volume 9.2 fL (9.4-12.3); Monocytes Absolute Auto 0.5 X10*3/uL (0.1-1.2); Monocytes Percent Auto 9.3 % (2-11); Neutrophils Absolute Auto 2.9 x10*3/uL (2.0-8.3); Neutrophils Percent Auto 58.9 % (45-73); Platelet Count 196 X10*3/uL (160-400); Red Cell Distribution Width 14.8 % (11.0-16.0); White Blood Count 4.9 X10*3/uL (4.8-10.8)
[2023-02-24 12:18] LABS: Prothrombin Time 11.4 SEC (10.0-13.1)
[2023-02-24 12:26] LABS: COVID-19 Test Negative (Negative); IDNOW Serial# BCCEAD1C
[2023-02-24 12:30] LABS: Alanine Aminotransferase 21 U/L (0-31); Alkaline Phosphatase 62 U/L (39-117); Anion Gap 10 (12-20); Aspartate Amino Transferase 22 U/L (5-31); Bilirubin Direct < 0.2 mg/dL (0.0-0.5); Bilirubin Total 0.5 mg/dL (0.0-1.0); Blood Urea Nitrogen 20 mg/dL (9-16); Calcium 9.8 mg/dL (8.4-10.2); Carbon Dioxide 28 mmol/L (22-29); Chloride 106 mmol/L (96-108); Creatinine Clr Calc Pharmacy 34.9; Estimated Glomerular Filt Rate 54; Glucose Random 111 mg/dL (60-115); Magnesium 2.3 mg/dL (1.6-2.6); Potassium 4.2 mmol/L (3.3-5.1); Sodium 140 mmol/L (135-145); Total Protein 7.2 g/dL (6.5-8.0)
[2023-02-24 12:37] LABS: Troponin-I High Sensitivity < 3.5 ng/L (<3.5-17.0)
[2023-02-24 12:49] VITALS: BP 157/75; PULSE 68
[2023-02-24 12:54] VITALS: BP 149/70; PULSE 66
[2023-02-24 12:55] VITALS: BP 142/79; PULSE 70
[2023-02-24 12:56] LABS: Appearance Urine Clear; Color Urine Yellow; Glucose Urine UA Negative (Negative); Leukocyte Esterase Urine Negative (Negative); Nitrite Urine Negative (Negative); Specific Gravity - Urine 1.015 (1.005-1.025); Urine Blood Negative (Negative); Urine Ketones Negative (Negative); Urine Protein Negative (Neg-Trace)
[2023-02-24 12:58] VITALS: BP 142/79; PULSE 70; RESP 18; O2SAT 97
== END 2023-02-24 13:20 | disposition home or self-care (01) ==
PROVIDERS: Nurse Practitioner Family; Emergency Provider Emergency Medicine
DX: H81.13 Benign paroxysmal vertigo, bilateral (principal); F41.9 Anxiety disorder, unspecified; Z20.822 Contact with and (suspected) exposure to COVID-19; Z20.828 Contact with and (suspected) exposure to other viral communicable diseases; Z79.899 Other long term (current) drug therapy
CPT/HCPCS: 36415; 70450; 71046; 80048; 80076; 81003; 83735; 84484; 85025; 85610; 87635; 93005; 99284; 99285

== ENCOUNTER 2023-03-13 22:24 | Emergency (ER) | payer OTHER, SELFPAY ==
--- NOTE | 2023-03-13 | ECG_ITS ---
Test Reason : DIZZINESS Blood Pressure : / mmHG Vent. Rate : 068 BPM Atrial Rate : 068 BPM P-R Int : 172 ms QRS Dur : 080 ms QT Int : 418 ms P-R-T Axes : 071 -12 051 degrees QTc Int : 444 ms Normal sinus rhythm with sinus arrhythmia Moderate voltage criteria for LVH, may be normal variant ( R in aVL , [place] product ) Septal infarct (cited on or before 25-JAN-2023) Abnormal ECG When compared with ECG of 24-FEB-2023 12:10, No significant change was found Referred By: Generic ED Physician Electronically Signed By:SHAHRZAD PROCTOR MD
[2023-03-13 22:28] VITALS: BP 142/76; PULSE 60; O2SAT 96
[2023-03-13 22:41] VITALS: BP 150/74; PULSE 71; RESP 18; TEMP 36.1; O2SAT 95; BMI 22.6
[2023-03-13 22:59] LABS: MANUAL DIFF FLAG NO
[2023-03-13 23:00] LABS: Basophils Percent Auto 0.3 % (0-2); Eosinophils Absolute Auto 0.1 X10*3/uL (0.0-0.4); Eosinophils Percent Auto 1.3 % (0-4); Hematocrit 37.7 % (37.0-47.0); Hemoglobin 12.5 g/dl (12.0-16.0); Imm Gran Abs Auto 0.01 X10*3/uL (0.00-0.03); Imm Gran Pct Auto 0.1 % (0.0-0.4); Lymphocytes Absolute Auto 2.3 X10*3/uL (1.2-4.9); Lymphocytes Percent Auto 33.4 % (20-40); Mean Corpuscular HGB Conc 33.2 g/dl (31.0-35.0); Mean Corpuscular Volume 84.5 fL (80.0-98.0); Mean Platelet Volume 9.1 fL (9.4-12.3); Monocytes Absolute Auto 0.7 X10*3/uL (0.1-1.2); Monocytes Percent Auto 9.8 % (2-11); Neutrophils Absolute Auto 3.8 x10*3/uL (2.0-8.3); Neutrophils Percent Auto 55.1 % (45-73); Platelet Count 224 X10*3/uL (160-400); Red Blood Count 4.46 X10*6/uL (4.20-5.50); Red Cell Distribution Width 14.8 % (11.0-16.0); White Blood Count 6.9 X10*3/uL (4.8-10.8)
[2023-03-13 23:13] LABS: Alanine Aminotransferase 17 U/L (0-31); Albumin Level 3.9 g/dL (3.5-5.0); Alkaline Phosphatase 67 U/L (39-117); Anion Gap 13 (12-20); Aspartate Amino Transferase 17 U/L (5-31); Bilirubin Total 0.3 mg/dL (0.0-1.0); Blood Urea Nitrogen 20 mg/dL (9-16); Calcium 9.7 mg/dL (8.4-10.2); Carbon Dioxide 27 mmol/L (22-29); Chloride 107 mmol/L (96-108); Creatinine Clr Calc Pharmacy 40.6; Estimated Glomerular Filt Rate 58; Glucose Random 84 mg/dL (60-115); Potassium 4.1 mmol/L (3.3-5.1); Sodium 143 mmol/L (135-145); Total Protein 7.2 g/dL (6.5-8.0)
== END 2023-03-14 00:42 | disposition left against medical advice (07) ==
PROVIDERS: Emergency Provider Emergency Medicine
DX: R42 Dizziness and giddiness (principal); I49.8 Other specified cardiac arrhythmias; Z79.899 Other long term (current) drug therapy
CPT/HCPCS: 36415; 80053; 85025; 93005; 99283

== ENCOUNTER 2023-03-22 06:19 | Emergency (ER) | payer OTHER, SELFPAY ==
--- NOTE | ~2023-03-22 | XR_ITS ---
EXAMINATION: XR CHEST CLINICAL INFORMATION: Resolved chest pain COMPARISON: 02/24/2023 TECHNIQUE: Frontal view of the chest was obtained. FINDINGS: The lungs are well expanded. There is no focal consolidation, edema, or effusion. Bronchial wall thickening throughout. No pneumothorax. The cardiomediastinal silhouette is within normal limits. No acute osseous abnormality. XR/XR chest 1V IMPRESSION: No dense consolidation. Bronchial wall thickening can be seen with a small airways process such as asthma or atypical/viral infection.
--- NOTE | ~2023-03-22 | XR_ITS ---
EXAMINATION: XR KNEE, RIGHT CLINICAL INFORMATION: Right knee pain COMPARISON: 08/30/2017 TECHNIQUE: Four views of the right knee. FINDINGS: No fracture or subluxation. Compartmental joint spaces are maintained. Small tricompartmental marginal osteophytes. No joint effusion. Enthesophyte formation of the patella. XR/XR knee RT 4V IMPRESSION: Mild tricompartmental degenerative changes.
[2023-03-22 06:29] VITALS: BP 156/76; BP 160/80; PULSE 71; PULSE 76; RESP 14; O2SAT 94; O2SAT 97; BMI 27.1
[2023-03-22 06:33] VITALS: TEMP 36.8
[2023-03-22 06:34] VITALS: BP 156/76; PULSE 71; RESP 14; O2SAT 94
[2023-03-22 06:44] LABS: MANUAL DIFF FLAG NO
[2023-03-22 06:54] LABS: Basophils Percent Auto 0.5 % (0-2); Eosinophils Absolute Auto 0.1 X10*3/uL (0.0-0.4); Hematocrit 36.6 % (37.0-47.0); Hemoglobin 12.1 g/dl (12.0-16.0); Imm Gran Abs Auto 0.03 X10*3/uL (0.00-0.03); Imm Gran Pct Auto 0.5 % (0.0-0.4); Lymphocytes Absolute Auto 1.9 X10*3/uL (1.2-4.9); Mean Corpuscular HGB Conc 33.1 g/dl (31.0-35.0); Mean Corpuscular Hemoglobin 28.3 pg (27.0-33.0); Mean Corpuscular Volume 85.5 fL (80.0-98.0); Mean Platelet Volume 9.3 fL (9.4-12.3); Monocytes Absolute Auto 0.6 X10*3/uL (0.1-1.2); Monocytes Percent Auto 9.2 % (2-11); Neutrophils Absolute Auto 3.3 x10*3/uL (2.0-8.3); Neutrophils Percent Auto 55.8 % (45-73); Platelet Count 213 X10*3/uL (160-400); Red Blood Count 4.28 X10*6/uL (4.20-5.50); Red Cell Distribution Width 14.7 % (11.0-16.0)
[2023-03-22 06:55] VITALS: BP 153/76; PULSE 66; RESP 16; TEMP 36.7; O2SAT 96
[2023-03-22 07:04] LABS: Alanine Aminotransferase 16 U/L (0-31); Albumin Level 3.9 g/dL (3.5-5.0); Alkaline Phosphatase 61 U/L (39-117); Anion Gap 11 (12-20); Aspartate Amino Transferase 17 U/L (5-31); Bilirubin Total 0.3 mg/dL (0.0-1.0); Blood Urea Nitrogen 19 mg/dL (9-16); Carbon Dioxide 27 mmol/L (22-29); Chloride 107 mmol/L (96-108); Creatinine Clr Calc Pharmacy 42.9; Estimated Glomerular Filt Rate 54; Glucose Random 99 mg/dL (60-115); Potassium 4.1 mmol/L (3.3-5.1); Sodium 141 mmol/L (135-145)
--- NOTE | 2023-03-22 07:41 | ECG_ITS ---
Test Reason : resolved chest pain Blood Pressure : / mmHG Vent. Rate : 062 BPM Atrial Rate : 062 BPM P-R Int : 190 ms QRS Dur : 088 ms QT Int : 438 ms P-R-T Axes : 080 -08 036 degrees QTc Int : 444 ms Normal sinus rhythm Moderate voltage criteria for LVH, may be normal variant ( R in aVL , [place] product ) Septal infarct (cited on or before 25-JAN-2023) Abnormal ECG When compared with ECG of 13-MAR-2023 23:02, No significant change was found Referred By: Joselo Magdaleno Electronically Signed By:COURTNEY RIVREA
[2023-03-22] MEDS: 0.9 % Sodium Chloride 1,000 ML 999 ML IV (08:04)
[2023-03-22 08:30] LABS: Prothrombin Time 11.6 SEC (10.0-13.1)
[2023-03-22 08:33] LABS: Partial Thromboplastin Time 29.1 SEC (26.0-36.4)
[2023-03-22 08:44] LABS: B Type Natriuretic Peptide 59 pg/mL (<100); Troponin-I High Sensitivity 3.5 ng/L (<3.5-17.0)
--- NOTE | 2023-03-22 09:17 | ED.GENADULT ---
HPI - General Adult General Chief complaint: Weakness Stated complaint: Chest Pain Time Seen by Provider: 03/22/23 07:41 Source: patient Mode of arrival: ambulatory Limitations: no limitations History of Present Illness HPI narrative: 83-YEAR-OLD FEMALE PRESENTS TO ED FOR CHEST PAIN AND 03:00 THAT RESOLVED BEFORE SHE CAME TO THE ED. PATIENT'S SECONDARY COMPLAINT RIGHT KNEE PAIN CAUSING HER TO HAVE TROUBLE WALKING. PATIENT STATES KNEE PAIN IS CHRONIC AND HAS NOT HAD ANY NEW TRAUMA. PATIENT DENIES ANY REDNESS OR SWELLING. PATIENT DENIES ANY SLURRED SPEECH, FACIAL DROOP, PARALYSIS OF EXTREMITIES, LOSS OF VISION, OR SHORTNESS OF BREATH. PATIENT PRESENTLY SHE FEELS FINE. Related Data Home Medications Medication Instructions Recorded Confirmed pantoprazole 40 mg tablet,delayed 40 mg PO DAILY 11/28/20 05/28/22 release cholecalciferol (vitamin D3) 50 50 mcg PO DAILY 11/13/21 05/28/22 mcg (2,000 unit) capsule levothyroxine 50 mcg tablet 50 mcg PO DAILY 11/13/21 05/28/22 famotidine 20 mg tablet 20 mg PO DAILY 05/28/22 05/28/22 alendronate 70 mg tablet 70 mg PO QWEEK 10/08/22 lansoprazole 30 mg capsule,delayed 30 mg PO DAILY 10/08/22 release sucralfate 1 gram tablet 1 g PO TID 10/08/22 Previous Rx's Medication Instructions Recorded aluminum-mag hydroxide-simethicone 10 ml PO TID PRN indigestion #1 ea 09/03/20 400 mg-400 mg-40 mg/5 mL oral susp (Mylanta Maximum Strength) acetaminophen 325 mg tablet 650 mg PO Q6H PRN fever or pain 09/27/20 (Athenol) #30 tabs sucralfate 100 mg/mL oral 10 ml PO BID 14 days #280 mL 10/16/20 suspension (Carafate) dicyclomine 10 mg capsule 10 mg PO TID PRN abd pain 30 days 05/28/22 #30 caps docusate sodium 100 mg capsule 100 mg PO BID 30 days #60 caps 05/28/22 prochlorperazine maleate 10 mg 10 mg PO Q8H PRN nausea and 07/02/22 tablet (Compazine) vomiting #10 tabs meclizine 12.5 mg tablet 12.5 mg PO TID PRN dizziness #20 01/25/23 tabs meclizine 25 mg tablet 25 mg PO TID PRN dizziness #14 tabs 02/24/23 albuterol sulfate 90 mcg/actuation 2 puff inhalation Q4-6H PRN 03/22/23 aerosol inhaler shortness of breath or wheezing #8.5 grams Allergies Allergy/AdvReac Type Severity Reaction Status Date / Time azithromycin [From ZITHROMAX] Allergy Severe GENERIC Verified 03/13/23 22:41 ONLY-SEVERE ABD PAIN, abdominal pain codeine [CODEINE] Allergy Intermediate NAUSEA & Verified 03/13/23 22:41 VOMITING,FAINTED, nausea, vomiting, syncope erythromycin base Allergy Intermediate HIVES, ABD Verified 03/13/23 22:41 [ERYTHROMYCIN BASE] PAIN promethazine [From PHENERGAN] Allergy Intermediate DIZZY / Verified 03/13/23 22:41 NAUSEATED amoxicillin [Prevpac] Allergy Unknown Unknown Verified 03/13/23 22:41 clarithromycin [Prevpac] Allergy Unknown Unknown Verified 03/13/23 22:41 Review of Systems Review of Systems: RESOLVED CHEST PAIN. CHRONIC KNEE PAIN. Yes all other systems are reviewed and are negative PMF Past Medical History Medical History Anxiety Arthritis Bright red blood per rectum Constipation Dysphagia GERD (gastroesophageal reflux disease) GI bleed Hematuria of unknown cause History of anemia History of colitis Hx of breast cancer Hx of syncope Hypothyroid Weight loss, unintentional Surgical History H/O left mastectomy History of ankle surgery History of esophagogastroduodenoscopy (EGD) Hx of colonoscopy Family History Family History Father No problems noted. 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 have visiting nurse or other home services: Yes ([employer]) Alcohol intake: never Patient Tobacco Use Status: Never used Tobacco Smoked in Last 30 Days: No Use of substances other than those prescribed or required for medical reasons: No Advance Directives: Yes Advance Directives on File: Yes Advance Directives Date on File: 10/20/20 service: No Current occupational status: retired Physical Exam ED Vital Signs: Vital Signs - 24 hr 03/22/23 06:29 03/22/23 06:34 03/22/23 06:33 Temperature 98.2 F Pulse Rate 71 71 Respiratory Rate 14 14 Blood Pressure 156/76 H 156/76 H Pulse Oximetry 94 94 Oxygen Delivery Method Room Air Room Air 03/22/23 06:55 03/22/23 10:03 03/22/23 12:13 Temperature 98.1 F Pulse Rate 66 70 67 Respiratory Rate 16 13 17 Blood Pressure 153/76 H 185/93 H 155/77 H Pulse Oximetry 96 98 97 Oxygen Delivery Method Room Air Room Air Room Air BMI result Body Mass Index 27.1 Const General: cooperative, healthy appearing, comfortable, no acute distress, well developed, alert, awake and Physically active Orientation/consciousness: oriented to person, oriented to place, oriented to time and patient oriented x3 HENMT Head: Yes normal to inspection, Yes No palpable skull fracture present, Yes normocephalic, Yes atraumatic and No abrasion Eyes General: appearance normal, both eyes and all related structures Pupils: Equal, round and reactive pupils present Neck Neck: Yes normal visual inspection, Yes full ROM, Yes no lymphadenopathy, Yes no meningeal signs, Yes trachea midline, Yes supple, No anterior neck swelling and No tender Chest Chest palpation & inspection: normal inspection of the chest and normal palpation of entire chest wall Resp Effort & Inspection: normal respiratory effort and able to speak in complete sentences Auscultation: clear to auscultation bilaterally Cardio Jugular venous distension: no JVD Heart sounds: S1 normal heart sound present and S2 normal heart sound present GI Inspection: Yes normal to inspection and No abdominal wall ecchymosis Palpation (GI): Soft to palpation, not firm, nontender, no guarding and not rigid General: No CVA tenderness and Yes no CVA tenderness Back/Spine/Pelvis Back: no CVA tenderness, No CVA tenderness and No back tenderness Skin General skin exam: no rashes or lesions noted and elasticity normal Neuro Other: NEGATIVE FACIAL DROOP. NEGATIVE SLURRED SPEECH. NEGATIVE PRONATOR DRIFT. ALL EXTREMITIES EQUAL STRENGTH 5+. [id number] RAPID HEAD MOVEMENT INTACT. NEGATIVE ROMBERG. NORMAL GAIT General: oriented to person, oriented to place, oriented to time, patient oriented x3, gait normal, tone normal, moves all extremities, Normal light touch and pain sensation, no meningeal signs, no focal motor deficits and CN's II-XI intact bilaterally Cranial nerves: Yes Equal, round and reactive pupils present Extrem Other: PATIENT HAS COMPLETE RANGE OF MOTION OF ALL EXTREMITIES. NO MOTOR/NEURO/vASCULAR DEFECIT OF ALL EXTREMITIES. PATIETN WALKED ON HER OWN. rIGHT KNEE; tENDER ON PALPATION, BUT NEGATIVE FOR ANY REDNESS, WARMTH, OR STIFFNESS. General: Yes normal to inspection and Yes full ROM Psych Appearance: grossly normal, well kempt and not disheveled Course Course Course Narrative: PATIENT PRESENTLY WELL-APPEARING. CHEST PAIN RESOLVED BUT WILL DO CARDIAC EVALUATION. CHEST X-RAY ORDERED. RIGHT KNEE X-RAY ORDERED. Reevaluation(s) Reevaluation #1: Patient's 2 troponin negative. EKG negative STEMI. BNP negative. Not suspecting PE no need to send D- Dimer. Chest x-ray negative pneumonia. Right knee negative for any fracture or fluid. Patient has normal gait. Negative neuro deficits. NIH score is zero. No need for Head CT. Chest x-ray came back negative for pneumonia states bronchial wall thickening which could be asthma or viral infection. Patient has no URI symptoms. Due to x-ray reading though will discharge with albuterol inhaler Time: 12:26 Medications Administered Discontinued Medications Generic Name Dose Route Start Last Admin Trade Name Freq PRN Reason Stop Dose Admin Sodium Chloride 1,000 mls @ 999 mls/hr 03/22/23 07:57 03/22/23 10:26 Ns IV 03/22/23 08:57 Infused .Q1H1M STA Infusion Medical Decision Making Medical Decision Making [facility] Narrative: Each year old female presents to ED for resolved chest pain and right knee pain. She states right knee pain is chronic. Chest pain lasted 45 minutes this morning. Bilateral lower extremity negative for swelling, pitting edema erythema, or deformity. Bilateral knees are normal. Not suspecting pulmonary embolus. Cardiac workup negative for heart failure or heart attack. EKG negative STEMI. Patient is safe for discharge Differential Diagnosis Differential Diagnoses: The differential diagnosis associated with the presentation includes (Myocardial infarction, PE, heart failure, pneumonia, knee fracture, joint effusion,) Lab Data [facility] Lab Attestation statement: I reviewed the patient's lab results. 03/22/23 06:39 03/22/23 06:39 Labs: Lab Results 03/22/23 03/22/23 03/22/23 Range/Units 06:39 06:39 08:17 WBC 6.0 (4.8-10.8) X10*3/uL RBC 4.28 (4.20-5.50) X10*6/uL Hgb 12.1 (12.0-16.0) g/dl Hct 36.6 L (37.0-47.0) % MCV 85.5 (80.0-98.0) fL MCH 28.3 (27.0-33.0) pg MCHC 33.1 (31.0-35.0) g/dl RDW 14.7 (11.0-16.0) % Plt Count 213 (160-400) X10*3/uL MPV 9.3 L (9.4-12.3) fL Immature Gran % (Auto) 0.5 H (0.0-0.4) % Neut % (Auto) 55.8 (45-73) % Lymph % (Auto) 32.0 (20-40) % [place] % (Auto) 9.2 (2-11) % Eos % (Auto) 2.0 (0-4) % Baso % (Auto) 0.5 (0-2) % Lymph # (Auto) 1.9 (1.2-4.9) X10*3/uL [place] # (Auto) 0.6 (0.1-1.2) X10*3/uL Eos # (Auto) 0.1 (0.0-0.4) X10*3/uL Baso # (Auto) 0.0 (0.0-0.2) X10*3/uL Abs Immat Gran (auto) 0.03 (0.00-0.03) X10*3/uL Absolute Neuts (auto) 3.3 (2.0-8.3) x10*3/uL Absolute Nucleated RBC 0.000 (0.0-0.012) X10*3/uL Nucleated RBC % (auto) 0.0 (0.0-0.2) /100WBC PT 11.6 (10.0-13.1) SEC INR 1.0 (0.9-1.1) APTT 29.1 (26.0-36.4) SEC Sodium 141 (135-145) mmol/L Potassium 4.1 (3.3-5.1) mmol/L Chloride 107 (96-108) mmol/L Carbon Dioxide 27 (22-29) mmol/L Anion Gap 11 L (12-20) BUN 19 H (9-16) mg/dL Creatinine 0.98 (0.5-1.4) mg/dL Estim Creat Clear Calc 42.9 Estimated GFR 54 Random Glucose 99 (60-115) mg/dL Calcium 9.0 D (8.4-10.2) mg/dL Total Bilirubin 0.3 (0.0-1.0) mg/dL AST 17 (5-31) U/L ALT 16 (0-31) U/L Alkaline Phosphatase 61 (39-117) U/L Troponin I High Sens (<3.5-17.0) ng/L B-Natriuretic Peptide (<100) pg/mL Total Protein 7.0 (6.5-8.0) g/dL Albumin 3.9 (3.5-5.0) g/dL 03/22/23 03/22/23 03/22/23 Range/Units 08:17 08:17 11:07 WBC (4.8-10.8) X10*3/uL RBC (4.20-5.50) X10*6/uL Hgb (12.0-16.0) g/dl Hct (37.0-47.0) % MCV (80.0-98.0) fL MCH (27.0-33.0) pg MCHC (31.0-35.0) g/dl RDW (11.0-16.0) % Plt Count (160-400) X10*3/uL MPV (9.4-12.3) fL Immature Gran % (Auto) (0.0-0.4) % Neut % (Auto) (45-73) % Lymph % (Auto) (20-40) % [place] % (Auto) (2-11) % Eos % (Auto) (0-4) % Baso % (Auto) (0-2) % Lymph # (Auto) (1.2-4.9) X10*3/uL [place] # (Auto) (0.1-1.2) X10*3/uL Eos # (Auto) (0.0-0.4) X10*3/uL Baso # (Auto) (0.0-0.2) X10*3/uL Abs Immat Gran (auto) (0.00-0.03) X10*3/uL Absolute Neuts (auto) (2.0-8.3) x10*3/uL Absolute Nucleated RBC (0.0-0.012) X10*3/uL Nucleated RBC % (auto) (0.0-0.2) /100WBC PT (10.0-13.1) SEC INR (0.9-1.1) APTT (26.0-36.4) SEC Sodium (135-145) mmol/L Potassium (3.3-5.1) mmol/L Chloride (96-108) mmol/L Carbon Dioxide (22-29) mmol/L Anion Gap (12-20) BUN (9-16) mg/dL Creatinine (0.5-1.4) mg/dL Estim Creat Clear Calc Estimated GFR Random Glucose (60-115) mg/dL Calcium (8.4-10.2) mg/dL Total Bilirubin (0.0-1.0) mg/dL AST (5-31) U/L ALT (0-31) U/L Alkaline Phosphatase (39-117) U/L Troponin I High Sens 3.5 3.0 (<3.5-17.0) ng/L B-Natriuretic Peptide 59 (<100) pg/mL Total Protein (6.5-8.0) g/dL Albumin (3.5-5.0) g/dL Independent Interpretation I performed an independent interpretation of an: EKG (Normal sinus rhythm. Jugular rate 62. ID interval 190. QRS 88. QTC 444. Negative STEMI) Radiology Impression Discussion of test interpretation with radiology: I have reviewed the radiologist's reading. Prescription Management I considered prescription management with: Antibiotic (Azithromycin) and Other (Albuterol inhaler) Discharge Plan Discharge Clinical Impression: Bronchitis, Chest pain Patient Disposition: Home, Self-Care Instructions: Chest Pain (ED), Acute Bronchitis (ED) Additional Instructions: El an?lisis de mike y el electrocardiograma resultaron negativos para signos de ataque card?aco o insuficiencia card?srinath. Sarmiento radiograf?a de t?rax muestra que tuvo alg?n tipo de infecci?n viral bronquial, lurdes no neumon?a. Ser? dado de veda con inhalador de albuterol. Regrese al servicio de urgencias de inmediato por cualquier dolor en el pecho, dificultad para respirar, debilidad, mareos, dolor abdominal, hinchaz?n bilateral de las extremidades inferiores, hinchaz?n de las piernas, dolor de pantorrilla, dolor de rodilla, hinchaz?n de la rodilla, enrojecimiento, dificultad para hablar, ca?da facial, par?lisis de las extremidades, p?rdida de visi?n, o cualquier otro s?ntoma preocupante. Por favor, dayo un seguimiento con el proveedor de atenci?n primaria. Prescriptions: New albuterol sulfate 90 mcg/actuation HFA aerosol inhaler 2 puff inhalation Q4-6H PRN (Reason: shortness of breath or wheezing) Qty: 8.5 0RF No Action alum-mag hydroxide-simeth [Mylanta Maximum Strength] 400-400-40 mg/5 mL suspension 10 ml PO TID PRN (Reason: indigestion) Qty: 1 0RF acetaminophen [Athenol] 325 mg tablet 650 mg PO Q6H PRN (Reason: fever or pain) Qty: 30 0RF sucralfate [Carafate] 100 mg/mL suspension 10 ml PO BID 14 Days Qty: 280 0RF prochlorperazine maleate [Compazine] 10 mg tablet 10 mg PO Q8H PRN (Reason: nausea and vomiting) Qty: 10 0RF meclizine 12.5 mg tablet 12.5 mg PO TID PRN (Reason: dizziness) Qty: 20 0RF meclizine 25 mg tablet 25 mg PO TID PRN (Reason: dizziness) Qty: 14 0RF pantoprazole 40 mg tablet,delayed release (DR/EC) 40 mg PO DAILY cholecalciferol (vitamin D3) 50 mcg (2,000 unit) capsule 50 mcg PO DAILY levothyroxine 50 mcg tablet 50 mcg PO DAILY famotidine 20 mg tablet 20 mg PO DAILY docusate sodium 100 mg capsule 100 mg PO BID 30 Days Qty: 60 3RF dicyclomine 10 mg capsule 10 mg PO TID PRN (Reason: abd pain) 30 Days Qty: 30 1RF alendronate 70 mg tablet 70 mg PO QWEEK lansoprazole 30 mg capsule,delayed release(DR/EC) 30 mg PO DAILY sucralfate 1 gram tablet 1 g PO TID Print Language: [place]ian
[2023-03-22 10:03] VITALS: BP 185/93; PULSE 70; RESP 13; O2SAT 98
[2023-03-22 12:13] VITALS: BP 155/77; PULSE 67; RESP 17; O2SAT 97
== END 2023-03-22 12:45 | disposition home or self-care (01) ==
PROVIDERS: Physician Assistant; Emergency Provider Emergency Medicine Emergency Medical Services
DX: J40 Bronchitis, not specified as acute or chronic (principal); R07.89 Other chest pain; M25.561 Pain in right knee; R06.02 Shortness of breath; Z79.899 Other long term (current) drug therapy
CPT/HCPCS: 36415; 71045; 73564; 80053; 83880; 84484; 85025; 85610; 85730; 93005; 96360; 96361; 99284; 99285

== ENCOUNTER 2023-03-25 22:56 | Emergency (ER) | payer OTHER, SELFPAY ==
--- NOTE | 2023-03-25 | ECG_ITS ---
Test Reason : CP Blood Pressure : / mmHG Vent. Rate : 073 BPM Atrial Rate : 073 BPM P-R Int : 180 ms QRS Dur : 088 ms QT Int : 402 ms P-R-T Axes : 076 -06 056 degrees QTc Int : 442 ms Normal sinus rhythm Voltage criteria for left ventricular hypertrophy ( R in aVL , [place]okolow-Horowitz , [place] product ) Abnormal ECG When compared with ECG of 22-MAR-2023 07:55, No significant change was found Referred By: Generic ED Physician Electronically Signed By:Ovidio Roy
--- NOTE | ~2023-03-25 | XR_ITS ---
EXAMINATION: XR CHEST CLINICAL INFORMATION: Chest pain COMPARISON: 03/22/2023 TECHNIQUE: Frontal view of the chest was obtained. FINDINGS: Cardiac leads overlie the chest. The lungs are well expanded. Mild bronchial wall thickening. There is no focal consolidation, edema, or effusion. No pneumothorax. The cardiomediastinal silhouette is within normal limits. No acute osseous abnormality. XR/XR chest 1V IMPRESSION: No consolidation. Bronchial wall thickening can be seen with a small airways process such as asthma or atypical/viral infection.
[2023-03-25 23:15] VITALS: BP 132/90; BP 156/76; PULSE 69; PULSE 73; RESP 16; TEMP 36.9; O2SAT 96; O2SAT 97; BMI 25.5
[2023-03-25 23:19] VITALS: BP 156/76; PULSE 72; RESP 16; TEMP 36.9; O2SAT 97
--- NOTE | 2023-03-25 23:32 | ED_ITS ---
HPI - Chest Pain General Chief Complaint: Chest Pain Stated Complaint: CP Time Seen by Provider: 03/25/23 23:24 History of Present Illness HPI narrative: Patient is a 83-year-old female, history of anxiety. Previous history of breast cancer. Presents today with having chest pain. Not associated with shortness of breath. Similar to previous bouts of anxiety. Lasting the last 5-6 hours. Gradually subsided. No diaphoresis. No abdominal pain. No bloody stools. No coughing no congestion or upper respiratory symptoms. Patient is from home. Related Data Home Medications Medication Instructions Recorded Confirmed pantoprazole 40 mg tablet,delayed 40 mg PO DAILY 11/28/20 05/28/22 release cholecalciferol (vitamin D3) 50 50 mcg PO DAILY 11/13/21 05/28/22 mcg (2,000 unit) capsule levothyroxine 50 mcg tablet 50 mcg PO DAILY 11/13/21 05/28/22 famotidine 20 mg tablet 20 mg PO DAILY 05/28/22 05/28/22 alendronate 70 mg tablet 70 mg PO QWEEK 10/08/22 lansoprazole 30 mg capsule,delayed 30 mg PO DAILY 10/08/22 release sucralfate 1 gram tablet 1 g PO TID 10/08/22 Previous Rx's Medication Instructions Recorded aluminum-mag hydroxide-simethicone 10 ml PO TID PRN indigestion #1 ea 09/03/20 400 mg-400 mg-40 mg/5 mL oral susp (Mylanta Maximum Strength) acetaminophen 325 mg tablet 650 mg PO Q6H PRN fever or pain 09/27/20 (Athenol) #30 tabs sucralfate 100 mg/mL oral 10 ml PO BID 14 days #280 mL 10/16/20 suspension (Carafate) dicyclomine 10 mg capsule 10 mg PO TID PRN abd pain 30 days 05/28/22 #30 caps docusate sodium 100 mg capsule 100 mg PO BID 30 days #60 caps 05/28/22 prochlorperazine maleate 10 mg 10 mg PO Q8H PRN nausea and 07/02/22 tablet (Compazine) vomiting #10 tabs meclizine 12.5 mg tablet 12.5 mg PO TID PRN dizziness #20 01/25/23 tabs meclizine 25 mg tablet 25 mg PO TID PRN dizziness #14 tabs 02/24/23 albuterol sulfate 90 mcg/actuation 2 puff inhalation Q4-6H PRN 03/22/23 aerosol inhaler shortness of breath or wheezing #8.5 grams Allergies Allergy/AdvReac Type Severity Reaction Status Date / Time azithromycin [From ZITHROMAX] Allergy Severe GENERIC Verified 03/13/23 22:41 ONLY-SEVERE ABD PAIN, abdominal pain codeine [CODEINE] Allergy Intermediate NAUSEA & Verified 03/13/23 22:41 VOMITING,FAINTED, nausea, vomiting, syncope erythromycin base Allergy Intermediate HIVES, ABD Verified 03/13/23 22:41 [ERYTHROMYCIN BASE] PAIN promethazine [From PHENERGAN] Allergy Intermediate DIZZY / Verified 03/13/23 22:41 NAUSEATED amoxicillin [Prevpac] Allergy Unknown Unknown Verified 03/13/23 22:41 clarithromycin [Prevpac] Allergy Unknown Unknown Verified 03/13/23 22:41 Review of Systems Review of Systems: Positive chest pain Yes all other systems are reviewed and are negative PMFSH Past Medical History Attestation statement: The following information was validated with the patient. Medical History Anxiety Arthritis Bright red blood per rectum Constipation Dysphagia GERD (gastroesophageal reflux disease) GI bleed Hematuria of unknown cause History of anemia History of colitis Hx of breast cancer Hx of syncope Hypothyroid Weight loss, unintentional Surgical History H/O left mastectomy History of ankle surgery History of esophagogastroduodenoscopy (EGD) Hx of colonoscopy Family History Family History Father No problems noted. 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 Oriented X3. No acute distress. Eyes: Pupils equal, round and reactive to light. ENT: Pharynx normal. Neck: Normal inspection. Neck supple. No lymph nodes noted. No crepitus CVS: Normal heart rate and rhythm. Pulses normal. Normal S1 and S2 Respiratory: No respiratory distress. Breath sounds normal. No Wheezing. No rales Abdomen: Soft and nontender. No rigidity. No distention. good BS x4 Skin: Skin warm and dry. Normal skin color. Normal skin turgor. Extremities: No lower extremity edema. Neurovascular intact to all extremities. No Lacerations. No Rash Neuro: Oriented X 3. No motor deficit. No sensory deficit. Moving all extermities. No slurred speech Medications Administered Discontinued Medications Generic Name Dose Route Start Last Admin Trade Name Freq PRN Reason Stop Dose Admin Lorazepam 1 mg 03/26/23 00:07 03/26/23 00:30 Lorazepam 1 Mg Tablet PO 03/26/23 00:08 1 mg ONCE ONE Administration Medical Decision Making Medical Decision Making [facility] Narrative: My interpretation patient's EKG showed a sinus pattern heart rate is 70 NE QRS QT within normal limits there is no acute ST segment elevation. EKG is unchanged from previous. Positive chest pain. Constant. Similar to previous bouts of anxiety. Will give a small amount of Ativan. Will monitor carefully. Will get 2 sets of troponin. Chest x-ray is pending to rule out the possibility of pneumonia pneumothorax. Patient's chest pain atypical. Positive previous history of anxiety. EKG showed no changes. Symptom improved with time. No risk for pulmonary emboli. Chest x-ray showed no pneumonia no pneumothorax. The 2 sets of cardiac enzymes are negative will discharge patient home. Differential Diagnosis ACS, anxiety, pneumonia, pneumothorax Lab Data [facility] Lab Attestation statement: I reviewed the patient's lab results. 03/25/23 23:34 03/25/23 23:34 Labs: Lab Results 03/25/23 03/25/23 03/25/23 Range/Units 23:34 23:34 23:34 WBC 5.9 (4.8-10.8) X10*3/uL RBC 4.13 L (4.20-5.50) X10*6/uL Hgb 11.7 L (12.0-16.0) g/dl Hct 35.3 L (37.0-47.0) % MCV 85.5 (80.0-98.0) fL MCH 28.3 (27.0-33.0) pg MCHC 33.1 (31.0-35.0) g/dl RDW 15.5 (11.0-16.0) % Plt Count 199 (160-400) X10*3/uL MPV 9.1 L (9.4-12.3) fL Immature Gran % (Auto) 0.2 (0.0-0.4) % Neut % (Auto) 57.5 (45-73) % Lymph % (Auto) 31.3 (20-40) % [place] % (Auto) 8.8 (2-11) % Eos % (Auto) 1.9 (0-4) % Baso % (Auto) 0.3 (0-2) % Lymph # (Auto) 1.9 (1.2-4.9) X10*3/uL [place] # (Auto) 0.5 (0.1-1.2) X10*3/uL Eos # (Auto) 0.1 (0.0-0.4) X10*3/uL Baso # (Auto) 0.0 (0.0-0.2) X10*3/uL Abs Immat Gran (auto) 0.01 (0.00-0.03) X10*3/uL Absolute Neuts (auto) 3.4 (2.0-8.3) x10*3/uL Absolute Nucleated RBC 0.000 (0.0-0.012) X10*3/uL Nucleated RBC % (auto) 0.0 (0.0-0.2) /100WBC Sodium 144 (135-145) mmol/L Potassium 4.1 (3.3-5.1) mmol/L Chloride 108 (96-108) mmol/L Carbon Dioxide 26 (22-29) mmol/L Anion Gap 14 (12-20) BUN 20 H (9-16) mg/dL Creatinine 0.93 (0.5-1.4) mg/dL Estim Creat Clear Calc 45.6 Estimated GFR 58 Random Glucose 144 H (60-115) mg/dL Calcium 9.8 D (8.4-10.2) mg/dL Troponin I High Sens 2.7 (<3.5-17.0) ng/L Independent Interpretation I performed an independent interpretation of an: EKG Interpretation: My interpretation patient's EKG showed a sinus pattern heart rate is 70 NE QRS QT within normal limits is no acute ST segment elevation noted. Radiology Impression Discussion of test interpretation with radiology: I have reviewed the radiologist's reading. Radiologist Impression: Patient's chest x-ray is grossly negative for any acute evidence of pneumonia/pneumothorax, rib fracture External Record Review External record reviewed: Inpatient record Discharge Plan Discharge Clinical Impression: Chest pain, Anxiety Patient Disposition: Home, Self-Care Instructions: Chest Pain (DC), Anxiety (ED) Prescriptions: No Action alum-mag hydroxide-simeth [Mylanta Maximum Strength] 400-400-40 mg/5 mL suspension 10 ml PO TID PRN (Reason: indigestion) Qty: 1 0RF acetaminophen [Athenol] 325 mg tablet 650 mg PO Q6H PRN (Reason: fever or pain) Qty: 30 0RF sucralfate [Carafate] 100 mg/mL suspension 10 ml PO BID 14 Days Qty: 280 0RF prochlorperazine maleate [Compazine] 10 mg tablet 10 mg PO Q8H PRN (Reason: nausea and vomiting) Qty: 10 0RF meclizine 12.5 mg tablet 12.5 mg PO TID PRN (Reason: dizziness) Qty: 20 0RF meclizine 25 mg tablet 25 mg PO TID PRN (Reason: dizziness) Qty: 14 0RF albuterol sulfate 90 mcg/actuation HFA aerosol inhaler 2 puff inhalation Q4-6H PRN (Reason: shortness of breath or wheezing) Qty: 8.5 0RF pantoprazole 40 mg tablet,delayed release (DR/EC) 40 mg PO DAILY cholecalciferol (vitamin D3) 50 mcg (2,000 unit) capsule 50 mcg PO DAILY levothyroxine 50 mcg tablet 50 mcg PO DAILY famotidine 20 mg tablet 20 mg PO DAILY docusate sodium 100 mg capsule 100 mg PO BID 30 Days Qty: 60 3RF dicyclomine 10 mg capsule 10 mg PO TID PRN (Reason: abd pain) 30 Days Qty: 30 1RF alendronate 70 mg tablet 70 mg PO QWEEK lansoprazole 30 mg capsule,delayed release(DR/EC) 30 mg PO DAILY sucralfate 1 gram tablet 1 g PO TID Referrals: [facility] [Physician] - 03/28/23
--- NOTE | 2023-03-25 23:37 | MHC.EDTECH ---
This tech assumed care of patient at 2311,Vitals,Labs,and EKG obtained,Patient placed on cardiac technician and put Colby on,warm blanket giving. Patient is resting comfortably at this time. Call moran in reach
[2023-03-25 23:39] LABS: Basophils Percent Auto 0.3 % (0-2); Eosinophils Absolute Auto 0.1 X10*3/uL (0.0-0.4); Eosinophils Percent Auto 1.9 % (0-4); Hematocrit 35.3 % (37.0-47.0); Hemoglobin 11.7 g/dl (12.0-16.0); Imm Gran Abs Auto 0.01 X10*3/uL (0.00-0.03); Imm Gran Pct Auto 0.2 % (0.0-0.4); Lymphocytes Absolute Auto 1.9 X10*3/uL (1.2-4.9); Lymphocytes Percent Auto 31.3 % (20-40); MANUAL DIFF FLAG NO; Mean Corpuscular HGB Conc 33.1 g/dl (31.0-35.0); Mean Corpuscular Hemoglobin 28.3 pg (27.0-33.0); Mean Corpuscular Volume 85.5 fL (80.0-98.0); Mean Platelet Volume 9.1 fL (9.4-12.3); Monocytes Absolute Auto 0.5 X10*3/uL (0.1-1.2); Monocytes Percent Auto 8.8 % (2-11); Neutrophils Absolute Auto 3.4 x10*3/uL (2.0-8.3); Neutrophils Percent Auto 57.5 % (45-73); Platelet Count 199 X10*3/uL (160-400); Red Blood Count 4.13 X10*6/uL (4.20-5.50); Red Cell Distribution Width 15.5 % (11.0-16.0); White Blood Count 5.9 X10*3/uL (4.8-10.8)
[2023-03-25 23:40] VITALS: BP 159/73; PULSE 71; RESP 20; TEMP 36.6; O2SAT 98
[2023-03-25 23:56] LABS: Anion Gap 14 (12-20); Blood Urea Nitrogen 20 mg/dL (9-16); Calcium 9.8 mg/dL (8.4-10.2); Carbon Dioxide 26 mmol/L (22-29); Chloride 108 mmol/L (96-108); Creatinine Clr Calc Pharmacy 45.6; Estimated Glomerular Filt Rate 58; Glucose Random 144 mg/dL (60-115); Potassium 4.1 mmol/L (3.3-5.1); Sodium 144 mmol/L (135-145)
[2023-03-25 23:58] LABS: Troponin-I High Sensitivity 2.7 ng/L (<3.5-17.0)
[2023-03-26] MEDS: LORazepam 1 MG TABLET PO (00:30)
[2023-03-26 01:21] LABS: Troponin-I High Sensitivity < 2.7 ng/L (<3.5-17.0)
[2023-03-26 01:32] VITALS: BP 164/77; PULSE 79; RESP 20; TEMP 36.5; O2SAT 98
--- NOTE | 2023-03-26 01:35 | MHC.EDTECH ---
Vitals obtained ,Patient eating a turkey sandwich with a cup of gingerale. Call moran in reach
== END 2023-03-26 02:42 | disposition home or self-care (01) ==
PROVIDERS: Emergency Provider Emergency Medicine Emergency Medical Services; PCP Internal Medicine
DX: R07.9 Chest pain, unspecified (principal); F41.9 Anxiety disorder, unspecified; Z85.3 Personal history of malignant neoplasm of breast; Z79.899 Other long term (current) drug therapy
CPT/HCPCS: 36415; 71045; 80048; 84484; 85025; 93005; 99284; 99285

== ENCOUNTER 2023-03-28 01:10 | Emergency (ER) | payer OTHER, SELFPAY ==
--- NOTE | 2023-03-28 01:19 | ED_ITS ---
HPI - Female Genitourinary General Chief complaint: Vaginal Bleeding Stated complaint: vaginal bleeding Time Seen by Provider: 03/28/23 01:18 Source: patient Mode of arrival: EMS Limitations: no limitations History of Present Illness HPI Narrative: Patient complaining of blood tinge discharged on tissue paper from wiping her vagina no vaginal discharge patient been seen by a kennel assistant for same no abdominal pain or blood clot Related Data Home Medications Medication Instructions Recorded Confirmed pantoprazole 40 mg tablet,delayed 40 mg PO DAILY 11/28/20 05/28/22 release cholecalciferol (vitamin D3) 50 50 mcg PO DAILY 11/13/21 05/28/22 mcg (2,000 unit) capsule levothyroxine 50 mcg tablet 50 mcg PO DAILY 11/13/21 05/28/22 famotidine 20 mg tablet 20 mg PO DAILY 05/28/22 05/28/22 alendronate 70 mg tablet 70 mg PO QWEEK 10/08/22 lansoprazole 30 mg capsule,delayed 30 mg PO DAILY 10/08/22 release sucralfate 1 gram tablet 1 g PO TID 10/08/22 Previous Rx's Medication Instructions Recorded aluminum-mag hydroxide-simethicone 10 ml PO TID PRN indigestion #1 ea 09/03/20 400 mg-400 mg-40 mg/5 mL oral susp (Mylanta Maximum Strength) acetaminophen 325 mg tablet 650 mg PO Q6H PRN fever or pain 09/27/20 (Athenol) #30 tabs sucralfate 100 mg/mL oral 10 ml PO BID 14 days #280 mL 10/16/20 suspension (Carafate) dicyclomine 10 mg capsule 10 mg PO TID PRN abd pain 30 days 05/28/22 #30 caps docusate sodium 100 mg capsule 100 mg PO BID 30 days #60 caps 05/28/22 prochlorperazine maleate 10 mg 10 mg PO Q8H PRN nausea and 07/02/22 tablet (Compazine) vomiting #10 tabs meclizine 12.5 mg tablet 12.5 mg PO TID PRN dizziness #20 01/25/23 tabs meclizine 25 mg tablet 25 mg PO TID PRN dizziness #14 tabs 02/24/23 albuterol sulfate 90 mcg/actuation 2 puff inhalation Q4-6H PRN 03/22/23 aerosol inhaler shortness of breath or wheezing #8.5 grams nystatin 100,000 unit/gram topical 1 appl topical BID #30 grams 03/28/23 powder (Wvamy) Allergies Allergy/AdvReac Type Severity Reaction Status Date / Time azithromycin [From ZITHROMAX] Allergy Severe GENERIC Verified 03/13/23 22:41 ONLY-SEVERE ABD PAIN, abdominal pain codeine [CODEINE] Allergy Intermediate NAUSEA & Verified 03/13/23 22:41 VOMITING,FAINTED, nausea, vomiting, syncope erythromycin base Allergy Intermediate HIVES, ABD Verified 03/13/23 22:41 [ERYTHROMYCIN BASE] PAIN promethazine [From PHENERGAN] Allergy Intermediate DIZZY / Verified 03/13/23 22:41 NAUSEATED amoxicillin [Prevpac] Allergy Unknown Unknown Verified 03/13/23 22:41 clarithromycin [Prevpac] Allergy Unknown Unknown Verified 03/13/23 22:41 Review of Systems Review of Systems: Yes all other systems are reviewed and are negative PMFSH Past Medical History Medical History Anxiety Arthritis Bright red blood per rectum Constipation Dysphagia GERD (gastroesophageal reflux disease) GI bleed Hematuria of unknown cause History of anemia History of colitis Hx of breast cancer Hx of syncope Hypothyroid Weight loss, unintentional Surgical History H/O left mastectomy History of ankle surgery History of esophagogastroduodenoscopy (EGD) Hx of colonoscopy Family History Family History Father No problems noted. 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 Oriented X3. No acute distress. Neck: Normal inspection. Neck supple. CVS: Normal heart rate and rhythm. Pulses normal. Respiratory: No respiratory distress. Equal air entry bilateral, Abdomen: Soft and nontender. Bowel sounds are present, pelvic: No vaginal discharge slight redness of vulvar area Skin: Skin warm and dry. Normal skin color. Normal skin turgor. Extremities: No lower extremity edema. Neuro: Oriented X 3. Medications Administered Discontinued Medications Generic Name Dose Route Start Last Admin Trade Name Freq PRN Reason Stop Dose Admin Fluconazole 150 mg 03/28/23 01:29 03/28/23 02:17 Fluconazole 150 Mg Tablet PO 03/28/23 01:30 150 mg ONCE ONE Administration Medical Decision Making Medical Decision Making MDM Narrative: Patient with candidiasis of vulvar area likely the cause for eating and blood discharge secondary to excoriation if discharge patient home on nystatin powder Discharge Plan Discharge Clinical Impression: Candidiasis of vulva and vagina Patient Disposition: Home, Self-Care Instructions: Yeast Infection (ED) Additional Instructions: Nystatin powder apply twice daily as advised Follow-up with your PCP Prescriptions: New nystatin [Nyamyc] 100,000 unit/gram powder 1 appl topical BID Qty: 30 0RF No Action alum-mag hydroxide-simeth [Mylanta Maximum Strength] 400-400-40 mg/5 mL suspension 10 ml PO TID PRN (Reason: indigestion) Qty: 1 0RF acetaminophen [Athenol] 325 mg tablet 650 mg PO Q6H PRN (Reason: fever or pain) Qty: 30 0RF sucralfate [Carafate] 100 mg/mL suspension 10 ml PO BID 14 Days Qty: 280 0RF prochlorperazine maleate [Compazine] 10 mg tablet 10 mg PO Q8H PRN (Reason: nausea and vomiting) Qty: 10 0RF meclizine 12.5 mg tablet 12.5 mg PO TID PRN (Reason: dizziness) Qty: 20 0RF meclizine 25 mg tablet 25 mg PO TID PRN (Reason: dizziness) Qty: 14 0RF albuterol sulfate 90 mcg/actuation HFA aerosol inhaler 2 puff inhalation Q4-6H PRN (Reason: shortness of breath or wheezing) Qty: 8.5 0RF pantoprazole 40 mg tablet,delayed release (DR/EC) 40 mg PO DAILY cholecalciferol (vitamin D3) 50 mcg (2,000 unit) capsule 50 mcg PO DAILY levothyroxine 50 mcg tablet 50 mcg PO DAILY famotidine 20 mg tablet 20 mg PO DAILY docusate sodium 100 mg capsule 100 mg PO BID 30 Days Qty: 60 3RF dicyclomine 10 mg capsule 10 mg PO TID PRN (Reason: abd pain) 30 Days Qty: 30 1RF alendronate 70 mg tablet 70 mg PO QWEEK lansoprazole 30 mg capsule,delayed release(DR/EC) 30 mg PO DAILY sucralfate 1 gram tablet 1 g PO TID Interventions: ED Discharge Assessment Last Done: 03/28/23 02:34 Discharge Date/Time: 03/28/23 02:35
[2023-03-28 01:40] VITALS: BP 117/54; BP 164/82; PULSE 77; PULSE 86; RESP 18; TEMP 36.9; O2SAT 94; O2SAT 96; BMI 19.1
[2023-03-28 02:17] VITALS: BP 110/61; PULSE 78; RESP 16; TEMP 36.7; O2SAT 95
[2023-03-28] MEDS: Fluconazole 150 MG TABLET PO (02:17)
--- NOTE | 2023-03-28 02:30 | PC.NURSE ---
late entry- tobacco feeder catcher at bedside with dr amezquita for bedside pelvic exam
--- NOTE | 2023-03-28 02:33 | PC.NURSE ---
vss. mongolian speaking medical staff utilized during medication administration as well as discharge. pt provided with discharge packet. pt verbalized understanding of discharge packet. pt utilized wheelchair at discharge. pt discharge to waiting room. okay per transmitter engineer in charge. pt agreeable to discharge to waiting room
== END 2023-03-28 02:35 | disposition home or self-care (01) ==
PROVIDERS: Emergency Provider Internal Medicine
DX: B37.31 Acute candidiasis of vulva and vagina (principal)
CPT/HCPCS: 99283; 99284

== ENCOUNTER 2023-05-15 11:11 | Emergency (ER) | payer OTHER, SELFPAY ==
[2023-05-15 11:15] VITALS: BP 147/78; PULSE 86; O2SAT 97
[2023-05-15 11:21] VITALS: BP 156/71; PULSE 81; RESP 16; TEMP 36.7; O2SAT 93
[2023-05-15 11:22] VITALS: BMI 24.4
[2023-05-15 12:46] LABS: MANUAL DIFF FLAG NO
[2023-05-15 12:47] LABS: Basophils Percent Auto 0.4 % (0-2); Eosinophils Percent Auto 0.7 % (0-4); Hematocrit 38.6 % (37.0-47.0); Hemoglobin 12.4 g/dl (12.0-16.0); Imm Gran Abs Auto 0.01 X10*3/uL (0.00-0.03); Imm Gran Pct Auto 0.2 % (0.0-0.4); Lymphocytes Absolute Auto 1.3 X10*3/uL (1.2-4.9); Lymphocytes Percent Auto 22.9 % (20-40); Mean Corpuscular HGB Conc 32.1 g/dl (31.0-35.0); Mean Corpuscular Hemoglobin 27.6 pg (27.0-33.0); Mean Corpuscular Volume 85.8 fL (80.0-98.0); Mean Platelet Volume 9.4 fL (9.4-12.3); Monocytes Absolute Auto 0.5 X10*3/uL (0.1-1.2); Monocytes Percent Auto 9.3 % (2-11); Neutrophils Absolute Auto 3.7 x10*3/uL (2.0-8.3); Neutrophils Percent Auto 66.5 % (45-73); Platelet Count 213 X10*3/uL (160-400); Red Cell Distribution Width 14.5 % (11.0-16.0); White Blood Count 5.6 X10*3/uL (4.8-10.8)
[2023-05-15 13:03] LABS: Alanine Aminotransferase 16 U/L (0-31); Albumin Level 3.9 g/dL (3.5-5.0); Alkaline Phosphatase 59 U/L (39-117); Anion Gap 11 (12-20); Aspartate Amino Transferase 20 U/L (5-31); Bilirubin Total 0.3 mg/dL (0.0-1.0); Blood Urea Nitrogen 19 mg/dL (9-16); COVID-19 Test Negative (Negative); Carbon Dioxide 26 mmol/L (22-29); Chloride 110 mmol/L (96-108); Creatinine Clr Calc Pharmacy 47.7; Estimated Glomerular Filt Rate > 60; Glucose Random 93 mg/dL (60-115); IDNOW Serial# 08D9AD1C; Magnesium 2.1 mg/dL (1.6-2.6); Potassium 4.4 mmol/L (3.3-5.1); Sodium 143 mmol/L (135-145); Total Protein 7.7 g/dL (6.5-8.0)
--- NOTE | 2023-05-15 13:06 | ED_ITS ---
HPI - Abdominal Pain General Chief Complaint: Abdominal Pain Stated Complaint: BODY PAIN AND ACHES Time Seen by Provider: 05/15/23 12:58 Source: patient Mode of arrival: EMS Limitations: no limitations History of Present Illness HPI narrative: Patient comes emergency room via ambulance complaining of suprapubic pain that started 3-1/2 hours ago. Patient states that by the time the ambulance arrived to her home, the pain had completely subsided. At this time, patient has no pain at all, denies dysuria or hematuria, denies nausea vomiting diarrhea, no flank pain Related Data Home Medications Medication Instructions Recorded Confirmed pantoprazole 40 mg tablet,delayed 40 mg PO DAILY 11/28/20 05/28/22 release cholecalciferol (vitamin D3) 50 50 mcg PO DAILY 11/13/21 05/28/22 mcg (2,000 unit) capsule levothyroxine 50 mcg tablet 50 mcg PO DAILY 11/13/21 05/28/22 famotidine 20 mg tablet 20 mg PO DAILY 05/28/22 05/28/22 alendronate 70 mg tablet 70 mg PO QWEEK 10/08/22 lansoprazole 30 mg capsule,delayed 30 mg PO DAILY 10/08/22 release sucralfate 1 gram tablet 1 g PO TID 10/08/22 Previous Rx's Medication Instructions Recorded aluminum-mag hydroxide-simethicone 10 ml PO TID PRN indigestion #1 ea 09/03/20 400 mg-400 mg-40 mg/5 mL oral susp (Mylanta Maximum Strength) acetaminophen 325 mg tablet 650 mg PO Q6H PRN fever or pain 09/27/20 (Athenol) #30 tabs sucralfate 100 mg/mL oral 10 ml PO BID 14 days #280 mL 10/16/20 suspension (Carafate) dicyclomine 10 mg capsule 10 mg PO TID PRN abd pain 30 days 05/28/22 #30 caps docusate sodium 100 mg capsule 100 mg PO BID 30 days #60 caps 05/28/22 prochlorperazine maleate 10 mg 10 mg PO Q8H PRN nausea and 07/02/22 tablet (Compazine) vomiting #10 tabs meclizine 12.5 mg tablet 12.5 mg PO TID PRN dizziness #20 01/25/23 tabs meclizine 25 mg tablet 25 mg PO TID PRN dizziness #14 tabs 02/24/23 albuterol sulfate 90 mcg/actuation 2 puff inhalation Q4-6H PRN 03/22/23 aerosol inhaler shortness of breath or wheezing #8.5 grams nystatin 100,000 unit/gram topical 1 appl topical BID #30 grams 03/28/23 powder ([facility]) Allergies Allergy/AdvReac Type Severity Reaction Status Date / Time azithromycin [From ZITHROMAX] Allergy Severe GENERIC Verified 03/13/23 22:41 ONLY-SEVERE ABD PAIN, abdominal pain codeine [CODEINE] Allergy Intermediate NAUSEA & Verified 03/13/23 22:41 VOMITING,FAINTED, nausea, vomiting, syncope erythromycin base Allergy Intermediate HIVES, ABD Verified 03/13/23 22:41 [ERYTHROMYCIN BASE] PAIN promethazine [From PHENERGAN] Allergy Intermediate DIZZY / Verified 03/13/23 22: 41 NAUSEATED amoxicillin [Prevpac] Allergy Unknown Unknown Verified 03/13/23 22:41 clarithromycin [Prevpac] Allergy Unknown Unknown Verified 03/13/23 22:41 Review of Systems Review of Systems Constitutional : No Weight loss, No Fever, No Chills, No Night Sweats, No Fatigue, No Malaise ENT/Mouth : No Hearing loss, No Ear Pain, No Nasal Congestion, No Sinus Pain, No Hoarseness, No sore throat, No Rhinorrhea, No Swallowing Difficulty Eyes: No Eye Pain, No Swelling, No Redness, No Foreign Body, No Discharge, No Vision Changes Cardiovascular : No Chest Pain, No SOB, No Dyspnea on Exertion, No Orthopnea, No Edema, No Palpitations Respiratory : No Cough, No Sputum, No Wheezing, No Smoke Exposure, No Dyspnea Gastrointestinal : No Nausea, No Vomiting, No Diarrhea, No Constipation, complaining of suprapubic pain, No Hematochezia, No Melena Genitourinary : no irregular bleeding, No Dysuria, No Urinary Frequency, No Hematuria, No Urinary Incontinence, No Urgency, No Flank Pain, No Urinary Flow Changes, No Hesitancy Musculoskeletal : No joint pain, No Myalgias, No Joint Swelling Skin : No Skin Lesions, No rash Neuro : No Weakness, No Numbness, No Paresthesias, No Loss of Consciousness, No Dizziness, No Headache Psych : No Anxiety/Panic, No Depression, No SI/HI/AH/VH, No Social Issues, Heme/Lymph: No Bruising, No Bleeding,No Lymphadenopathy Endocrine : No Polyuria, No Polydipsia, No Temperature Intolerance [facility] Past Medical History Medical History Anxiety Arthritis Bright red blood per rectum Constipation Dysphagia GERD (gastroesophageal reflux disease) GI bleed Hematuria of unknown cause History of anemia History of colitis Hx of breast cancer Hx of syncope Hypothyroid Weight loss, unintentional Surgical History H/O left mastectomy History of ankle surgery History of esophagogastroduodenoscopy (EGD) Hx of colonoscopy Family History Family History Father No problems noted. 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 have visiting nurse or other home services: Yes ([employer]) Alcohol intake: never Patient Tobacco Use Status: Never used Tobacco Advance Directives: Yes Advance Directives on File: Yes Advance Directives Date on File: 10/20/20 service: No Current occupational status: retired Physical Exam ED Vital Signs: Vital Signs - 24 hr 05/15/23 11:21 Temperature 98.1 F Pulse Rate 81 Respiratory Rate 16 Blood Pressure 156/71 H Pulse Oximetry 93 Oxygen Delivery Method Room Air BMI result Body Mass Index 24.4 Const Other: Appearance: Alert. Oriented X3. No acute distress. Well-appearing Eyes: Pupils equal, round and reactive to light. ENT: Pharynx normal. Neck: Normal inspection. Neck supple. No lymph nodes noted. No crepitus CVS: Normal heart rate and rhythm. Pulses normal. Normal S1 and S2 Respiratory: No respiratory distress. Breath sounds normal. No Wheezing. No rales Abdomen: Soft and nontender. No rigidity. No distention. Skin: Skin warm and dry. Normal skin color. Normal skin turgor. Extremities: No lower extremity edema. No Lacerations. No Rash Neuro: Oriented X 3. No motor deficit. No sensory deficit. Moving all extremities. No slurred speech. CN 2 through 12 grossly intact Psych: calm, cooperative, normal affect Medical Decision Making Medical Decision Making MDM Narrative: -patient remains asymptomatic since she arrived to emergency room -hematology and chemistry unremarkable, urinalysis is negative for UTI, patient has chronic hematuria. -discussed with the patient to follow up with Urology, she may need a cystoscop y/biopsy for the chronic hematuria. Patient remains asymptomatic, ready for discharge Lab Data 05/15/23 12:32 05/15/23 12:32 Labs: Lab Results 05/15/23 05/15/23 05/15/23 Range/Units 12:32 12:32 12:32 WBC 5.6 (4.8-10.8) X10*3/uL RBC 4.50 (4.20-5.50) X10*6/uL Hgb 12.4 (12.0-16.0) g/dl Hct 38.6 (37.0-47.0) % MCV 85.8 (80.0-98.0) fL MCH 27.6 (27.0-33.0) pg MCHC 32.1 (31.0-35.0) g/dl RDW 14.5 (11.0-16.0) % Plt Count 213 (160-400) X10*3/uL MPV 9.4 (9.4-12.3) fL Immature Gran % (Auto) 0.2 (0.0-0.4) % Neut % (Auto) 66.5 (45-73) % Lymph % (Auto) 22.9 (20-40) % [place] % (Auto) 9.3 (2-11) % Eos % (Auto) 0.7 (0-4) % Baso % (Auto) 0.4 (0-2) % Lymph # (Auto) 1.3 (1.2-4.9) X10*3/uL [place] # (Auto) 0.5 (0.1-1.2) X10*3/uL Eos # (Auto) 0.0 (0.0-0.4) X10*3/uL Baso # (Auto) 0.0 (0.0-0.2) X10*3/uL Abs Immat Gran (auto) 0.01 (0.00-0.03) X10*3/uL Absolute Neuts (auto) 3.7 (2.0-8.3) x10*3/uL Absolute Nucleated RBC 0.000 (0.0-0.012) X10*3/uL Nucleated RBC % (auto) 0.0 (0.0-0.2) /100WBC Sodium 143 (135-145) mmol/L Potassium 4.4 (3.3-5.1) mmol/L Chloride 110 H (96-108) mmol/L Carbon Dioxide 26 (22-29) mmol/L Anion Gap 11 L (12-20) BUN 19 H (9-16) mg/dL Creatinine 0.85 (0.5-1.4) mg/dL Estim Creat Clear Calc 47.7 Estimated GFR > 60 Random Glucose 93 (60-115) mg/dL Calcium 10.0 (8.4-10.2) mg/dL Magnesium 2.1 (1.6-2.6) mg/dL Total Bilirubin 0.3 (0.0-1.0) mg/dL AST 20 (5-31) U/L ALT 16 (0-31) U/L Alkaline Phosphatase 59 (39-117) U/L Total Protein 7.7 (6.5-8.0) g/dL Albumin 3.9 (3.5-5.0) g/dL Urine Color Urine Appearance Urine pH (5.0-9.0) Ur Specific Cosmos (1.005-1.025) Urine Protein (Neg-Trace) mg/dL Urine Glucose (UA) (Negative) mg/dL Urine Ketones (Negative) mg/dL Urine Blood (Negative) Urine Nitrite (Negative) Ur Leukocyte Esterase (Negative) Urine RBC (0-2) /HPF Urine WBC (0-5) /HPF Ur Squamous Epith Cells (0-2) /HPF Urine Bacteria (None Seen) Hyaline Casts (0-2) /LPF COVID-19 (LYUBOV) Negative (Negative) COVID-19 Clin Com See Note 05/15/23 Range/Units 13:14 WBC (4.8-10.8) X10*3/uL RBC (4.20-5.50) X10*6/uL Hgb (12.0-16.0) g/dl Hct (37.0-47.0) % MCV (80.0-98.0) fL MCH (27.0-33.0) pg MCHC (31.0-35.0) g/dl RDW (11.0-16.0) % Plt Count (160-400) X10*3/uL MPV (9.4-12.3) fL Immature Gran % (Auto) (0.0-0.4) % Neut % (Auto) (45-73) % Lymph % (Auto) (20-40) % [place] % (Auto) (2-11) % Eos % (Auto) (0-4) % Baso % (Auto) (0-2) % Lymph # (Auto) (1.2-4.9) X10*3/uL [place] # (Auto) (0.1-1.2) X10*3/uL Eos # (Auto) (0.0-0.4) X10*3/uL Baso # (Auto) (0.0-0.2) X10*3/uL Abs Immat Gran (auto) (0.00-0.03) X10*3/uL Absolute Neuts (auto) (2.0-8.3) x10*3/uL Absolute Nucleated RBC (0.0-0.012) X10*3/uL Nucleated RBC % (auto) (0.0-0.2) /100WBC Sodium (135-145) mmol/L Potassium (3.3-5.1) mmol/L Chloride (96-108) mmol/L Carbon Dioxide (22-29) mmol/L Anion Gap (12-20) BUN (9-16) mg/dL Creatinine (0.5-1.4) mg/dL Estim Creat Clear Calc Estimated GFR Random Glucose (60-115) mg/dL Calcium (8.4-10.2) mg/dL Magnesium (1.6-2.6) mg/dL Total Bilirubin (0.0-1.0) mg/dL AST (5-31) U/L ALT (0-31) U/L Alkaline Phosphatase (39-117) U/L Total Protein (6.5-8.0) g/dL Albumin (3.5-5.0) g/dL Urine Color Yellow Urine Appearance Clear Urine pH 7.5 (5.0-9.0) Ur Specific Cosmos 1.010 (1.005-1.025) Urine Protein Negative (Neg-Trace) mg/dL Urine Glucose (UA) Negative (Negative) mg/dL Urine Ketones Negative (Negative) mg/dL Urine Blood Large (3+) H (Negative) Urine Nitrite Negative (Negative) Ur Leukocyte Esterase Negative (Negative) Urine RBC 0-2 (0-2) /HPF Urine WBC 0-5 (0-5) /HPF Ur Squamous Epith Cells 0-2 (0-2) /HPF Urine Bacteria None Seen (None Seen) Hyaline Casts 0-2 (0-2) /LPF COVID-19 (LYUBOV) (Negative) COVID-19 Clin Com Discharge Plan Discharge Clinical Impression: Hematuria of unknown cause, Abdominal pain Patient Disposition: Home, Self-Care Instructions: Hematuria (ED), Abdominal Pain (ED) Additional Instructions: Please follow-up with your primary care physician tomorrow. If you have any worsening or new symptoms, please return to the emergency room or call 911 Prescriptions: No Action alum-mag hydroxide-simeth [Mylanta Maximum Strength] 400-400-40 mg/5 mL suspension 10 ml PO TID PRN (Reason: indigestion) Qty: 1 0RF acetaminophen [Athenol] 325 mg tablet 650 mg PO Q6H PRN (Reason: fever or pain) Qty: 30 0RF sucralfate [Carafate] 100 mg/mL suspension 10 ml PO BID 14 Days Qty: 280 0RF prochlorperazine maleate [Compazine] 10 mg tablet 10 mg PO Q8H PRN (Reason: nausea and vomiting) Qty: 10 0RF meclizine 12.5 mg tablet 12.5 mg PO TID PRN (Reason: dizziness) Qty: 20 0RF meclizine 25 mg tablet 25 mg PO TID PRN (Reason: dizziness) Qty: 14 0RF albuterol sulfate 90 mcg/actuation HFA aerosol inhaler 2 puff inhalation Q4-6H PRN (Reason: shortness of breath or wheezing) Qty: 8.5 0RF nystatin [Nyamyc] 100,000 unit/gram powder 1 appl topical BID Qty: 30 0RF pantoprazole 40 mg tablet,delayed release (DR/EC) 40 mg PO DAILY cholecalciferol (vitamin D3) 50 mcg (2,000 unit) capsule 50 mcg PO DAILY levothyroxine 50 mcg tablet 50 mcg PO DAILY famotidine 20 mg tablet 20 mg PO DAILY docusate sodium 100 mg capsule 100 mg PO BID 30 Days Qty: 60 3RF dicyclomine 10 mg capsule 10 mg PO TID PRN (Reason: abd pain) 30 Days Qty: 30 1RF alendronate 70 mg tablet 70 mg PO QWEEK lansoprazole 30 mg capsule,delayed release(DR/EC) 30 mg PO DAILY sucralfate 1 gram tablet 1 g PO TID Referrals: Genie Malone MD [Physician] - 05/20/23
[2023-05-15 13:20] LABS: Appearance Urine Clear; Color Urine Yellow; Glucose Urine UA Negative (Negative); Leukocyte Esterase Urine Negative (Negative); Nitrite Urine Negative (Negative); PH 7.5 (5.0-9.0); UMIC TRIGGER UACC YES; Urine Blood Large (3+) (Negative); Urine Ketones Negative (Negative); Urine Protein Negative (Neg-Trace)
[2023-05-15 13:30] LABS: Bacteria Urine None Seen (None Seen); Hyaline Casts Urine 0-2 /LPF (0-2); RBC Urine 0-2 /HPF (0-2); Squamous Epithelial Cell Urine 0-2 /HPF (0-2); WBC Urine 0-5 /HPF (0-5)
== END 2023-05-15 15:20 | disposition home or self-care (01) ==
PROVIDERS: Physician Assistant Medical; Emergency Provider Emergency Medicine
DX: R31.9 Hematuria, unspecified (principal); R10.30 Lower abdominal pain, unspecified; Z20.822 Contact with and (suspected) exposure to COVID-19
CPT/HCPCS: 80053; 81001; 83735; 85025; 87635; 99283

== ENCOUNTER 2023-06-13 15:54 | Emergency (ER) | payer OTHER, SELFPAY ==
--- NOTE | 2023-06-13 16:01 | ED_ITS ---
HPI - General Adult General Chief complaint: Urogenital-Female Stated complaint: abd pain Time Seen by Provider: 06/13/23 21:05 Source: patient Mode of arrival: ambulatory History of Present Illness HPI narrative: 83-year-old female with history of gastritis, chronic constipation as well as remote history of ulcer presents with complaints of abdominal discomfort and she reports blood in urine with some nausea but no vomiting, denies any fevers or chills and denies any dysuria. Patient reports 2 bowel movements today and endorses that she continues to pass flatus. Related Data Home Medications Medication Instructions Recorded Confirmed pantoprazole 40 mg tablet,delayed 40 mg PO DAILY 11/28/20 05/28/22 release cholecalciferol (vitamin D3) 50 50 mcg PO DAILY 11/13/21 05/28/22 mcg (2,000 unit) capsule levothyroxine 50 mcg tablet 50 mcg PO DAILY 11/13/21 05/28/22 famotidine 20 mg tablet 20 mg PO DAILY 05/28/22 05/28/22 alendronate 70 mg tablet 70 mg PO QWEEK 10/08/22 lansoprazole 30 mg capsule,delayed 30 mg PO DAILY 10/08/22 release sucralfate 1 gram tablet 1 g PO TID 10/08/22 Previous Rx's Medication Instructions Recorded aluminum-mag hydroxide-simethicone 10 ml PO TID PRN indigestion #1 ea 09/03/20 400 mg-400 mg-40 mg/5 mL oral susp (Mylanta Maximum Strength) acetaminophen 325 mg tablet 650 mg PO Q6H PRN fever or pain 09/27/20 (Athenol) #30 tabs sucralfate 100 mg/mL oral 10 ml PO BID 14 days #280 mL 10/16/20 suspension (Carafate) dicyclomine 10 mg capsule 10 mg PO TID PRN abd pain 30 days 05/28/22 #30 caps docusate sodium 100 mg capsule 100 mg PO BID 30 days #60 caps 05/28/22 prochlorperazine maleate 10 mg 10 mg PO Q8H PRN nausea and 07/02/22 tablet (Compazine) vomiting #10 tabs meclizine 12.5 mg tablet 12.5 mg PO TID PRN dizziness #20 01/25/23 tabs meclizine 25 mg tablet 25 mg PO TID PRN dizziness #14 tabs 02/24/23 albuterol sulfate 90 mcg/actuation 2 puff inhalation Q4-6H PRN 03/22/23 aerosol inhaler shortness of breath or wheezing #8.5 grams nystatin 100,000 unit/gram topical 1 appl topical BID #30 grams 03/28/23 powder (Nyamyc) sucralfate 100 mg/mL oral 10 ml PO BID #420 mL 06/13/23 suspension (Carafate) Allergies Allergy/AdvReac Type Severity Reaction Status Date / Time azithromycin [From ZITHROMAX] Allergy Severe GENERIC Verified 03/13/23 22:41 ONLY-SEVERE ABD PAIN, abdominal pain codeine [CODEINE] Allergy Intermediate NAUSEA & Verified 03/13/23 22:41 VOMITING,FAINTED, nausea, vomiting, syncope erythromycin base Allergy Intermediate HIVES, ABD Verified 03/13/23 22:41 [ERYTHROMYCIN BASE] PAIN promethazine [From PHENERGAN] Allergy Intermediate DIZZY / Verified 03/13/23 22:41 NAUSEATED amoxicillin [Prevpac] Allergy Unknown Unknown Verified 03/13/23 22:41 clarithromycin [Prevpac] Allergy Unknown Unknown Verified 03/13/23 22:41 Review of Systems Review of Systems: Pertinent positives and negatives as stated in HPI [facility] Past Medical History Source: nursing notes reviewed Medical History Anxiety Arthritis Bright red blood per rectum Constipation Dysphagia GERD (gastroesophageal reflux disease) GI bleed Hematuria of unknown cause History of anemia History of colitis Hx of breast cancer Hx of syncope Hypothyroid Weight loss, unintentional Surgical History H/O left mastectomy History of ankle surgery History of esophagogastroduodenoscopy (EGD) Hx of colonoscopy Family History Family History Father No problems noted. 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 have visiting nurse or other home services: Yes (CHIMNEY SUPERVISOR BRICK) Alcohol intake: never Patient Tobacco Use Status: Never used Tobacco Advance Directives: Yes Advance Directives on File: Yes Advance Directives Date on File: 10/20/20 service: No Current occupational status: retired Physical Exam ED Vital Signs: Vital Signs - 24 hr 06/13/23 16:02 Temperature 98.8 F Pulse Rate 59 Respiratory Rate 18 Blood Pressure 144/65 H Pulse Oximetry 94 Oxygen Delivery Method Room Air BMI result Body Mass Index 25.6 VITAL SIGNS: Reviewed. GENERAL: Well developed, well nourished, in no acute distress. HEAD: Normocephalic/atraumatic EYES: PERRLA, EOMI EARS: Ext canals without abnormality NOSE: Nares patent bilateral OROPHARYNX: no oral lesions noted, posterior pharynx clear NECK: Supple, no adenopathy LUNGS: Normal breath sounds. No adventitious sounds or accessory muscle use. SpO2<94> CARDIOVASCULAR: Regular rate and rhythm without noted murmurs, no JVD or lower extremity edema. ABDOMEN: Soft, tenderness noted in epigastric, non-distended with bowel sounds. MUSCULOSKELETAL: No tenderness, deformities, or effusions noted on gross inspection. EXTREMITIES: No cyanosis, clubbing or edema. SKIN: Inspection of the skin reveals no rashes NEUROLOGIC: Alert and oriented x 4. Strength and sensation to light touch were grossly intact x 4. Course Course Course Narrative: This is a rapid medical exam: Additional HPI, ROS, PE not included below will be deferred to primary provider. Patient is an 83-year-old Hong Konger-speaking female with history of breast and colon CA, colitis presenting to the emergency department with complaint of lower abdominal pain and nausea for over a month. CHIMNEY SUPERVISOR BRICK reports that patient was seen here around 1 month ago and was found to have blood in her urine, but was not prescribed any new medications. She was referred to urology and pt has appointment for 06/21. Patient is here with ongoing abdominal pain and nausea, weakness. Denies fevers. Reports occasional back pain. Abdomen is soft and nontender, no CVA tenderness, afebrile. Plan: labs, UA Medical Decision Making Medical Decision Making MDM Narrative: 83-year-old female with history and clinical presentation, DDX: UTI, gastritis, H pylori infection, constipation, medication side effect. I doubt any cholecystitis, pancreatitis, diverticulitis or obstruction based on history and clinical examination. I reviewed all investigations and hematologic indices are negative for leukocytosis/left shift/anemia/thrombocytopenia. Chemistry indices demonstrate chronically stable results and otherwise grossly within normal limits. Urinalysis does not demonstrate any evidence of hematuria or infection. All results and findings were discussed with patient at bedside. It is my interpretation that patient might be experiencing some residual affects of the alendronate as it can lead to nausea and stomach issues if not taken appropriately. In addition, there is the possibility the patient has gastritis with a developing ulcer and the possibility of an H pylori infection. Patient otherwise appears well, is hemodynamically stable and was given a combination of Carafate as well as Magic mouthwash for relief of epigastric discomfort. She is otherwise discharged with a prescription for Carafate as omeprazole would interfere with H pylori testing in the outpatient setting. Differential Diagnosis Differential Diagnoses: The differential diagnosis associated with the presentation includes Please see the discussion above Lab Data MDM Lab Attestation statement: I reviewed the patient's lab results. Please see the discussion above 06/13/23 16:32 06/13/23 16:32 Labs: Lab Results 06/13/23 06/13/23 06/13/23 Range/Units 16:32 16:32 16:32 WBC 5.6 (4.8-10.8) X10*3/uL RBC 4.33 (4.20-5.50) X10*6/uL Hgb 12.1 (12.0-16.0) g/dl Hct 37.6 (37.0-47.0) % MCV 86.8 (80.0-98.0) fL MCH 27.9 (27.0-33.0) pg MCHC 32.2 (31.0-35.0) g/dl RDW 14.2 (11.0-16.0) % Plt Count 221 (160-400) X10*3/uL MPV 9.8 (9.4-12.3) fL Immature Gran % (Auto) 0.2 (0.0-0.4) % Neut % (Auto) 57.1 (45-73) % Lymph % (Auto) 28.9 (20-40) % [place] % (Auto) 10.4 (2-11) % Eos % (Auto) 3.0 (0-4) % Baso % (Auto) 0.4 (0-2) % Lymph # (Auto) 1.6 (1.2-4.9) X10*3/uL [place] # (Auto) 0.6 (0.1-1.2) X10*3/uL Eos # (Auto) 0.2 (0.0-0.4) X10*3/uL Baso # (Auto) 0.0 (0.0-0.2) X10*3/uL Abs Immat Gran (auto) 0.01 (0.00-0.03) X10*3/uL Absolute Neuts (auto) 3.2 (2.0-8.3) x10*3/uL Absolute Nucleated RBC 0.000 (0.0-0.012) X10*3/uL Nucleated RBC % (auto) 0.0 (0.0-0.2) /100WBC Sodium 139 (135-145) mmol/L Potassium 4.6 (3.3-5.1) mmol/L Chloride 106 (96-108) mmol/L Carbon Dioxide 24 (22-29) mmol/L Anion Gap 14 (12-20) BUN 22 H (9-16) mg/dL Creatinine 1.18 (0.5-1.4) mg/dL Estim Creat Clear Calc 34.7 Estimated GFR 44 Random Glucose 143 H (60-115) mg/dL Calcium 10.4 H (8.4-10.2) mg/dL Total Bilirubin 0.5 (0.0-1.0) mg/dL AST 25 (5-31) U/L ALT 17 (0-31) U/L Alkaline Phosphatase 64 (39-117) U/L Troponin I High Sens < 2.7 (<3.5-17.0) ng/L Total Protein 7.6 (6.5-8.0) g/dL Albumin 4.0 (3.5-5.0) g/dL Urine Color Urine Appearance Urine pH (5.0-9.0) Ur Specific [place] (1.005-1.025) Urine Protein (Neg-Trace) mg/dL Urine Glucose (UA) (Negative) mg/dL Urine Ketones (Negative) mg/dL Urine Blood (Negative) Urine Nitrite (Negative) Ur Leukocyte Esterase (Negative) 06/13/23 Range/Units 18:30 WBC (4.8-10.8) X10*3/uL RBC (4.20-5.50) X10*6/uL Hgb (12.0-16.0) g/dl Hct (37.0-47.0) % MCV (80.0-98.0) fL MCH (27.0-33.0) pg MCHC (31.0-35.0) g/dl RDW (11.0-16.0) % Plt Count (160-400) X10*3/uL MPV (9.4-12.3) fL Immature Gran % (Auto) (0.0-0.4) % Neut % (Auto) (45-73) % Lymph % (Auto) (20-40) % [place] % (Auto) (2-11) % Eos % (Auto) (0-4) % Baso % (Auto) (0-2) % Lymph # (Auto) (1.2-4.9) X10*3/uL [place] # (Auto) (0.1-1.2) X10*3/uL Eos # (Auto) (0.0-0.4) X10*3/uL Baso # (Auto) (0.0-0.2) X10*3/uL Abs Immat Gran (auto) (0.00-0.03) X10*3/uL Absolute Neuts (auto) (2.0-8.3) x10*3/uL Absolute Nucleated RBC (0.0-0.012) X10*3/uL Nucleated RBC % (auto) (0.0-0.2) /100WBC Sodium (135-145) mmol/L Potassium (3.3-5.1) mmol/L Chloride (96-108) mmol/L Carbon Dioxide (22-29) mmol/L Anion Gap (12-20) BUN (9-16) mg/dL Creatinine (0.5-1.4) mg/dL Estim Creat Clear Calc Estimated GFR Random Glucose (60-115) mg/dL Calcium (8.4-10.2) mg/dL Total Bilirubin (0.0-1.0) mg/dL AST (5-31) U/L ALT (0-31) U/L Alkaline Phosphatase (39-117) U/L Troponin I High Sens (<3.5-17.0) ng/L Total Protein (6.5-8.0) g/dL Albumin (3.5-5.0) g/dL Urine Color Yellow Urine Appearance Clear Urine pH 5.5 (5.0-9.0) Ur Specific [place] <= 1.005 (1.005-1.025) Urine Protein Negative (Neg-Trace) mg/dL Urine Glucose (UA) Negative (Negative) mg/dL Urine Ketones Negative (Negative) mg/dL Urine Blood Negative (Negative) Urine Nitrite Negative (Negative) Ur Leukocyte Esterase Negative (Negative) Independent Interpretation I performed an independent interpretation of an: EKG Interpretation: Normal sinus rhythm, HR-73, no STEMI, [place]/QRS/QTC is within normal limits. External Record Review External record reviewed: Inpatient record, Office record, Outpatient record and Prior outpatient labs Chronic Conditions Patient?s care impacted by: Hypertension Discharge Plan Discharge Clinical Impression: Gastritis Patient Disposition: Home, Self-Care Instructions: Gastritis (ED), Diet for Stomach Ulcers and Gastritis (ED) Additional Instructions: 1. Reanudar todos los medicamentos caseros seg?n lo prescrito. Existe la posibilidad de que algunos de arianne s?ntomas est?n relacionados con el medicamento que celine para arianne huesos (alendronato) o la posibilidad de jluis infecci?n por H. pylori. 2. Mariam un seguimiento con isaac proveedor de atenci?n primaria llamando a la o ficina el lunes por la ma?malka para programar jluis senia para jluis reevaluaci?n. Regrese a la waldemar de emergencias si los s?ntomas empeoran. 1. Resume all home medications as prescribed. There is a possibility that some of your symptoms might be related to the medication that you take for your bones (alendronate) or the possibility of an H pylori infection. 2. Follow-up with your primary care provider by calling the office on Saturday morning to set up an appointment for re-evaluation. Return to the ER for any worsening symptoms. Prescriptions: New sucralfate [Carafate] 100 mg/mL suspension 10 ml PO BID Qty: 420 0RF No Action alum-mag hydroxide-simeth [Mylanta Maximum Strength] 400-400-40 mg/5 mL suspension 10 ml PO TID PRN (Reason: indigestion) Qty: 1 0RF acetaminophen [Athenol] 325 mg tablet 650 mg PO Q6H PRN (Reason: fever or pain) Qty: 30 0RF sucralfate [Carafate] 100 mg/mL suspension 10 ml PO BID 14 Days Qty: 280 0RF prochlorperazine maleate [Compazine] 10 mg tablet 10 mg PO Q8H PRN (Reason: nausea and vomiting) Qty: 10 0RF meclizine 12.5 mg tablet 12.5 mg PO TID PRN (Reason: dizziness) Qty: 20 0RF meclizine 25 mg tablet 25 mg PO TID PRN (Reason: dizziness) Qty: 14 0RF albuterol sulfate 90 mcg/actuation HFA aerosol inhaler 2 puff inhalation Q4-6H PRN (Reason: shortness of breath or wheezing) Qty: 8.5 0RF nystatin [Nyamyc] 100,000 unit/gram powder 1 appl topical BID Qty: 30 0RF pantoprazole 40 mg tablet,delayed release (DR/EC) 40 mg PO DAILY cholecalciferol (vitamin D3) 50 mcg (2,000 unit) capsule 50 mcg PO DAILY levothyroxine 50 mcg tablet 50 mcg PO DAILY famotidine 20 mg tablet 20 mg PO DAILY docusate sodium 100 mg capsule 100 mg PO BID 30 Days Qty: 60 3RF dicyclomine 10 mg capsule 10 mg PO TID PRN (Reason: abd pain) 30 Days Qty: 30 1RF alendronate 70 mg tablet 70 mg PO QWEEK lansoprazole 30 mg capsule,delayed release(DR/EC) 30 mg PO DAILY sucralfate 1 gram tablet 1 g PO TID Referrals: Dee Dee Rueda MD [Primary Care Provider] - Print Language: Hong Konger
[2023-06-13 16:02] VITALS: BP 144/65; PULSE 59; RESP 18; TEMP 37.1; O2SAT 94; BMI 25.6
--- NOTE | 2023-06-13 16:06 | ECG_ITS ---
Test Reason : weakness Blood Pressure : / mmHG Vent. Rate : 073 BPM Atrial Rate : 073 BPM P-R Int : 182 ms QRS Dur : 082 ms QT Int : 396 ms P-R-T Axes : 074 -13 062 degrees QTc Int : 436 ms Normal sinus rhythm Moderate voltage criteria for LVH, may be normal variant ( R in aVL , Glen product ) Septal infarct , age undetermined Abnormal ECG When compared with ECG of 25-MAR-2023 23:13, No significant change was found Referred By: Sepideh Nunez Electronically Signed By:SHAHRZAD PROCTOR MD
[2023-06-13 16:41] LABS: MANUAL DIFF FLAG NO
[2023-06-13 16:52] LABS: Basophils Percent Auto 0.4 % (0-2); Eosinophils Absolute Auto 0.2 X10*3/uL (0.0-0.4); Hematocrit 37.6 % (37.0-47.0); Hemoglobin 12.1 g/dl (12.0-16.0); Imm Gran Abs Auto 0.01 X10*3/uL (0.00-0.03); Imm Gran Pct Auto 0.2 % (0.0-0.4); Lymphocytes Absolute Auto 1.6 X10*3/uL (1.2-4.9); Lymphocytes Percent Auto 28.9 % (20-40); Mean Corpuscular HGB Conc 32.2 g/dl (31.0-35.0); Mean Corpuscular Hemoglobin 27.9 pg (27.0-33.0); Mean Corpuscular Volume 86.8 fL (80.0-98.0); Mean Platelet Volume 9.8 fL (9.4-12.3); Monocytes Absolute Auto 0.6 X10*3/uL (0.1-1.2); Monocytes Percent Auto 10.4 % (2-11); Neutrophils Absolute Auto 3.2 x10*3/uL (2.0-8.3); Neutrophils Percent Auto 57.1 % (45-73); Platelet Count 221 X10*3/uL (160-400); Red Blood Count 4.33 X10*6/uL (4.20-5.50); Red Cell Distribution Width 14.2 % (11.0-16.0); White Blood Count 5.6 X10*3/uL (4.8-10.8)
[2023-06-13 16:59] LABS: Alanine Aminotransferase 17 U/L (0-31); Alkaline Phosphatase 64 U/L (39-117); Anion Gap 14 (12-20); Aspartate Amino Transferase 25 U/L (5-31); Bilirubin Total 0.5 mg/dL (0.0-1.0); Blood Urea Nitrogen 22 mg/dL (9-16); Calcium 10.4 mg/dL (8.4-10.2); Carbon Dioxide 24 mmol/L (22-29); Chloride 106 mmol/L (96-108); Creatinine Clr Calc Pharmacy 34.7; Estimated Glomerular Filt Rate 44; Glucose Random 143 mg/dL (60-115); Potassium 4.6 mmol/L (3.3-5.1); Sodium 139 mmol/L (135-145); Total Protein 7.6 g/dL (6.5-8.0)
[2023-06-13 17:15] LABS: Troponin-I High Sensitivity < 2.7 ng/L (<3.5-17.0)
[2023-06-13 18:47] LABS: Appearance Urine Clear; Color Urine Yellow; Glucose Urine UA Negative (Negative); Leukocyte Esterase Urine Negative (Negative); Nitrite Urine Negative (Negative); PH 5.5 (5.0-9.0); Specific Gravity - Urine <= 1.005 (1.005-1.025); Urine Blood Negative (Negative); Urine Ketones Negative (Negative); Urine Protein Negative (Neg-Trace)
[2023-06-13] MEDS: Mag&Al/Sim/Diphenhyd/Lidocaine 10 ML ORAL.SUSP PO (21:39)
[2023-06-13] MEDS: Sucralfate Oral Suspension 1 GM/10 ML ORAL.SUSP PO (21:39)
== END 2023-06-13 21:52 | disposition home or self-care (01) ==
PROVIDERS: Registered Nurse Emergency; Emergency Provider Student in an Organized Health Care Education/Training Program; PCP Internal Medicine
DX: K29.70 Gastritis, unspecified, without bleeding (principal); R94.31 Abnormal electrocardiogram [ECG] [EKG]; Z79.899 Other long term (current) drug therapy
CPT/HCPCS: 36415; 80053; 81003; 84484; 85025; 93005; 99283

== ENCOUNTER → 2023-06-13 16:06 | Outpatient (BNV) | payer OTHER, SELFPAY | PROVIDERS: Emergency Provider Student in an Organized Health Care Education/Training Program; PCP Internal Medicine; Visit Provider Internal Medicine Cardiovascular Disease | DX: R94.31 Abnormal electrocardiogram [ECG] [EKG] (principal) | CPT/HCPCS: 93010 ==

== ENCOUNTER 2023-06-17 16:18 | Outpatient (REF) | payer OTHER, SELFPAY | END 2023-06-17 16:19 | disposition home or self-care (01) | LOC: HO.HHCL 16:18 | PROVIDERS: Visit Provider Nurse Practitioner Primary Care | DX: E03.9 Hypothyroidism, unspecified (principal) | CPT/HCPCS: 36415; 84439 ==

== ENCOUNTER 2023-06-21 11:19 | Outpatient (REF) | payer OTHER, SELFPAY ==
[2023-06-21 17:15] LABS: Urine Cytology See Pathology rpt
== END 2023-06-21 11:20 | disposition home or self-care (01) ==
LOC: HO.LAB 11:19
PROVIDERS: PCP Internal Medicine; Visit Provider Urology
DX: N28.1 Cyst of kidney, acquired (principal); R31.29 Other microscopic hematuria
CPT/HCPCS: 88112; 99212

== ENCOUNTER 2023-06-21 11:19 | Outpatient (AMB) | payer OTHER, SELFPAY ==
--- NOTE | 2023-06-21 06:57 | A.OFFVIS_ITS ---
Intake Intake Visit Reasons: recurrent hematuria Intake Note: Patient presents today for a follow-up on Recurrent Hematuria, former Patient of Torrie: ANTON Meds- None Allergies to Antibiotic- Azithromycin,Erythromycin & Amoxicillin Blood Thinner- None Foreign Student Adviser Teacher Required: Yes Foreign Student Adviser Teacher Language: Space Officer Name: Kris Kumar, Rios/NITIN SPAN Information Interpreted: clinical only Accompanied by: Other Relationship Allergies azithromycin [From ZITHROMAX] Allergy (Severe, Verified 06/21/23 11:35) GENERIC ONLY-SEVERE ABD PAIN, abdominal pain codeine [CODEINE] Allergy (Intermediate, Verified 06/21/23 11:35) NAUSEA & VOMITING,FAINTED, nausea, vomiting, syncope erythromycin base [ERYTHROMYCIN BASE] Allergy (Intermediate, Verified 06/21/23 11:35) HIVES, ABD PAIN promethazine [From PHENERGAN] Allergy (Intermediate, Verified 06/21/23 11:35) DIZZY / NAUSEATED amoxicillin [Prevpac] Allergy (Unknown, Verified 06/21/23 11:35) Unknown clarithromycin [Prevpac] Allergy (Unknown, Verified 06/21/23 11:35) Unknown HPI HPI Comments History of Present Illness Details Kaley is an 83-year-old female who presents today to the office for a follow-up on recurrent hematuria. 06/21/2023-- The patient is romanian-speaking. 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 Patient was last seen in the office by COST CONTROL SUPERVISOR, Torrie, in December 2021. Her past medical history is significant for history of breast cancer, arthritis, and anxiety. She was seen in the emergency room in May and more recently on 06/13/23 for abdominal pain. Review of the emergency room records for 06/13/23 indicate that she was sent home with sucralfate for GI symptoms. She was noted to have microscopic hematuria and was sent for follow-up evaluation with our office. Results reviewed- CAT scan on 07/09/22 -- There are multiple renal cysts bilaterally, one cyst may meet the classification of Bosniak type 2. She denies any abdominal pain currently. Evaluation today--UA 06/21/23-- Leukocytes 2+ Roshan/uL; Blood: Negative Wei/uL. Plan: We are going to send the urine for cytology. I am going to obtain a renal ultrasound. Follow-up cystoscopy in 6 weeks to be scheduled. [facility] Medical History Anxiety Arthritis Bright red blood per rectum Constipation Dysphagia GERD (gastroesophageal reflux disease) GI bleed Hematuria of unknown cause History of anemia History of colitis Hx of breast cancer Hx of syncope Hypothyroid Weight loss, unintentional Surgical History H/O left mastectomy History of ankle surgery History of esophagogastroduodenoscopy (EGD) Hx of colonoscopy Family History Father No problems noted. Mother Hx of colon cancer, stage IV Social History Household Members: None Housing: Apartment Do you presently have visiting nurse or other home services: Yes (LAW OFFICE RECEPTIONIST) Alcohol intake: never Patient Tobacco Use Status: Never used Tobacco Advance Directives Date on File: 10/20/20 service: No Current occupational status: retired Review of Systems Const All systems reviewed & are unremarkable except as noted in HPI and below Reports no additional complaints Eyes Reports no additional complaints ENT Reports no additional complaints Card Denies dyspnea Resp Denies cough and Denies dyspnea GI Reports no additional complaints Reports no additional complaints Musc Reports no additional complaints Skin/Breast Denies rash and Denies unusual bruising Neuro Reports no additional complaints Psych Reports no additional complaints Endo Reports no additional complaints Sergio/Lymph Reports no additional complaints Aller/Immun Reports no additional complaints Physical Exam Const General: cooperative, healthy appearing and no acute distress Orientation/consciousness: patient oriented x3 HEENT Head: Yes normal to inspection, Yes normocephalic and Yes atraumatic Eyes Conjunctivae: conjunctivae normal Neck Neck: Yes normal visual inspection and Yes trachea midline Chest Chest palpation & inspection: normal inspection of the chest Resp Effort & Inspection: normal respiratory effort Cardio Rate: regular rate GI Inspection: Yes normal to inspection Palpation (GI): Soft to palpation Skin General skin exam: no rashes or lesions noted Neuro General: patient oriented x3 Extrem General: No edema Psych Appearance: grossly normal Results AMB Urinalysis, Automated UA Leukoctes 125 Roshan/uL Last Edit by CARLOS ENRIQUE Gill on 06/21/23 11:41 2+ Kris Kumar 06/21/23 11:41 UA Nitrite Negative Last Edit by CARLOS ENRIQUE Gill on 06/21/23 11:41 UA Urobilinogen 0.2 mg/dL Last Edit by CARLOS ENRIQUE Gill on 06/21/23 11:4 1 UA Protein 15 mg/dL Last Edit by CARLOS ENRIQUE Gill on 06/21/23 11:41 UA pH 6.0 Last Edit by CARLOS ENRIQUE Gill on 06/21/23 11:41 UA Blood 0 Wei/uL Last Edit by CARLOS ENRIQUE Gill on 06/21/23 11:41 UA Specific [place] 1.025 Last Edit by CARLOS ENRIQUE Gill on 06/21/23 11: 41 UA Ketone Negative Last Edit by CARLOS ENRIQUE Gill on 06/21/23 11:41 UA Bilirubin 1 mg/dL Last Edit by CARLOS ENRIQUE Gill on 06/21/23 11:41 1+ Kris Kumar 06/21/23 11:41 UA Glucose 0 mg/dL Last Edit by CARLOS ENRIQUE Gill on 06/21/23 11:41 Results Reviewed Results Reviewed: Laboratory Last Values Urine pH (Auto) 6.0 06/21/23 11:20 Specific [place] (Auto) 1.025 06/21/23 11:20 Urine Protein (Auto) 15 mg/dL 06/21/23 11:20 Glucose (UA)(Auto) 0 mg/dL 06/21/23 11:20 Urine Ketones (Auto) Negative 06/21/23 11:20 Urine Blood (Auto) 0 Wei/uL 06/21/23 11:20 Urine Nitrite (Auto) Negative 06/21/23 11:20 Urine Bilirubin (Auto) 1 mg/dL 06/21/23 11:20 Urine Urobilinogen (Auto) 0.2 mg/dL 06/21/23 11:20 Leukocyte Esterase (Auto) 125 Roshan/uL 06/21/23 11:20 Assessment & Plan Assessment & Plan (1) Complex renal cyst: Code(s): N28.1 - Cyst of kidney, acquired (2) Microscopic hematuria: Code(s): R31.29 - Other microscopic hematuria Plan We are going to send the urine for cytology. I am going to obtain a renal ultrasound. Follow-up cystoscopy in 6 weeks to be scheduled. Orders: Orders Urine Cytology 06/21/23 R31.9 - Hematuria, unspecified AMB Urinalysis Automated 06/21/23 Z13.9 - Encounter for screening, unspecified Patient Instructions: The patient had an opportunity to ask questions regarding treatment plan. All questions were answered. Imaging, Laboratory studies and physical exam results were discussed and reviewed in detail. No major barriers to understanding were identified. The patient expressed understanding and agreement with the above treatment plan. The patient is aware they should contact our office by phone for worsening of their current condition or the appearance of new symptoms. Compliance is encouraged with any medications and followup testing that is ordered. It is a privilege to be allowed the opportunity to participate in the urologic care of your patient. If you have any questions or concerns regarding treatment for the above conditions please do not hesitate to contact me. The office telephone contact is [phone]. This note is constructed in part using voice recognition software. While every effort has been made to ensure accuracy infrastructure tech errors may have been included. Yours sincerely, Genie Malone MD Coding Level of Care Code Est Pt Level 4 (07785) Diagnoses Complex renal cyst N28.1 Microscopic hematuria R31.29
== END 2023-06-21 11:52 | disposition home or self-care (01) ==
LOC: HO.HUSH 11:19
PROVIDERS: PCP Internal Medicine; Visit Provider Urology
DX: N28.1 Cyst of kidney, acquired (principal); R31.29 Other microscopic hematuria
CPT/HCPCS: 99214

== ENCOUNTER 2023-07-07 20:59 | Emergency (ER) | payer OTHER, SELFPAY ==
[2023-07-07 21:09] VITALS: BP 150/82; BP 178/88; PULSE 68; PULSE 69; RESP 18; TEMP 36.7; O2SAT 96; O2SAT 97; BMI 25.2
--- NOTE | 2023-07-07 21:49 | MHC.EDTECH ---
This tech brought patient to triage area,labs were obtained and sent to lab. Attempted to get a urine but patient was unable to give sample at this time,pt was brought back to waiting area.
[2023-07-07 21:50] LABS: MANUAL DIFF FLAG NO
[2023-07-07 21:52] LABS: Basophils Percent Auto 0.6 % (0-2); Eosinophils Absolute Auto 0.4 X10*3/uL (0.0-0.4); Eosinophils Percent Auto 8.6 % (0-4); Hematocrit 36.7 % (37.0-47.0); Hemoglobin 12.1 g/dl (12.0-16.0); Imm Gran Abs Auto 0.01 X10*3/uL (0.00-0.03); Imm Gran Pct Auto 0.2 % (0.0-0.4); Lymphocytes Absolute Auto 1.6 X10*3/uL (1.2-4.9); Lymphocytes Percent Auto 32.1 % (20-40); Mean Platelet Volume 9.7 fL (9.4-12.3); Monocytes Absolute Auto 0.7 X10*3/uL (0.1-1.2); Monocytes Percent Auto 13.5 % (2-11); Neutrophils Absolute Auto 2.3 x10*3/uL (2.0-8.3); Platelet Count 213 X10*3/uL (160-400); Red Blood Count 4.32 X10*6/uL (4.20-5.50); Red Cell Distribution Width 14.3 % (11.0-16.0); White Blood Count 5.1 X10*3/uL (4.8-10.8)
[2023-07-07 22:20] LABS: COVID-19 Test Negative (Negative); IDNOW Serial# 6674DD1D
[2023-07-07 22:30] LABS: Alanine Aminotransferase 24 U/L (0-31); Albumin Level 3.9 g/dL (3.5-5.0); Alkaline Phosphatase 69 U/L (39-117); Anion Gap 16 (12-20); Aspartate Amino Transferase 28 U/L (5-31); Bilirubin Total 0.3 mg/dL (0.0-1.0); Blood Urea Nitrogen 16 mg/dL (9-16); Calcium 9.9 mg/dL (8.4-10.2); Carbon Dioxide 19 mmol/L (22-29); Chloride 108 mmol/L (96-108); Creatinine Clr Calc Pharmacy 35.5; Estimated Glomerular Filt Rate 48; Glucose Random 107 mg/dL (60-115); Magnesium 2.2 mg/dL (1.6-2.6); Potassium 4.2 mmol/L (3.3-5.1); Sodium 139 mmol/L (135-145); Total Protein 7.7 g/dL (6.5-8.0)
== END 2023-07-08 01:05 | disposition left against medical advice (07) ==
LOC: HO.ED 07-08 00:58
PROVIDERS: Emergency Provider Emergency Medicine
DX: R51.9 Headache, unspecified (principal); Z91.81 History of falling; Z20.822 Contact with and (suspected) exposure to COVID-19
CPT/HCPCS: 80053; 83735; 85025; 87635; 99281; 99283

== ENCOUNTER 2023-08-09 14:06 | Outpatient (REF) | payer OTHER, SELFPAY ==
--- NOTE | ~2023-08-09 | US_ITS ---
EXAMINATION: US RETROPERITONEAL LIMITED (RENAL ONLY) CLINICAL INFORMATION: Cyst of kidney, acquired. COMPARISON: CT abdomen and pelvis 07/09/2022. Renal ultrasound 03/15/2022. X-ray KUB 10/16/2020 and 08/23/2020. TECHNIQUE: Real-time imaging of the kidneys. FINDINGS: RIGHT KIDNEY: 9.4 x 3.2 x 4.3 cm (SAG x AP x TRV). The kidney is normal in size, contour, and echogenicity. Renal cortical thickness is normal. No calculi or focal parenchymal lesions. No hydronephrosis. LEFT KIDNEY: 9.3 x 4.4 x 4.1 cm (SAG x AP x TRV). The kidney is normal in size, contour, and echogenicity. Renal cortical thickness is normal. No renal calculi or hydronephrosis. There are multiple simple cysts includin.6 x 1.6 x 1.3 cm mid renal, 0.5 x 0.5 x 0.7 cm mid to lower pole and 0.8 x 0.7 x 0.6 cm mid to lower pole. No further follow-up of these findings is recommended. US/US renal BI IMPRESSION: 1. Normal appearance of the right kidney 2. No significant finding in the left kidney.
== END 2023-08-09 14:07 | disposition home or self-care (01) ==
LOC: HO.US 14:06
PROVIDERS: Visit Provider Urology
DX: N28.1 Cyst of kidney, acquired (principal)
CPT/HCPCS: 76775

== ENCOUNTER 2023-08-13 11:47 | Outpatient (REF) | payer OTHER, SELFPAY ==
[2023-08-13 13:37] LABS: MANUAL DIFF FLAG NO
[2023-08-13 13:55] LABS: Basophils Percent Auto 0.6 % (0-2); Eosinophils Absolute Auto 0.2 X10*3/uL (0.0-0.4); Eosinophils Percent Auto 3.8 % (0-4); Hematocrit 40.2 % (37.0-47.0); Hemoglobin 13.3 g/dl (12.0-16.0); Imm Gran Abs Auto 0.01 X10*3/uL (0.00-0.03); Imm Gran Pct Auto 0.2 % (0.0-0.4); Lymphocytes Absolute Auto 1.6 X10*3/uL (1.2-4.9); Lymphocytes Percent Auto 32.7 % (20-40); Mean Corpuscular HGB Conc 33.1 g/dl (31.0-35.0); Mean Corpuscular Hemoglobin 28.2 pg (27.0-33.0); Mean Corpuscular Volume 85.2 fL (80.0-98.0); Mean Platelet Volume 10.5 fL (9.4-12.3); Monocytes Absolute Auto 0.5 X10*3/uL (0.1-1.2); Neutrophils Absolute Auto 2.6 x10*3/uL (2.0-8.3); Neutrophils Percent Auto 52.7 % (45-73); Platelet Count 212 X10*3/uL (160-400); Red Blood Count 4.72 X10*6/uL (4.20-5.50); Red Cell Distribution Width 14.6 % (11.0-16.0)
[2023-08-13 14:19] LABS: TSH reflex Free T4 14.94 uIU/mL (0.32-4.0)
[2023-08-13 14:50] LABS: Free T4 (Free Thyroxine) 0.69 ng/dL (0.71-1.85)
== END 2023-08-13 11:48 | disposition home or self-care (01) ==
LOC: HO.HHCL 11:47
PROVIDERS: Visit Provider Internal Medicine
DX: E03.9 Hypothyroidism, unspecified (principal); R53.82 Chronic fatigue, unspecified
CPT/HCPCS: 36415; 84439; 84443; 85025

== ENCOUNTER 2023-09-16 11:44 | Outpatient (AMB) | payer OTHER, SELFPAY ==
--- NOTE | 2023-09-16 11:53 | MHC.OFFVIS ---
Intake Vital Signs 09/16/23 11:58 Height 5 ft 3 in Weight 145 lb 8.081 oz BMI 25.8 BP 117/67 Blood Pressure Location Rt brachial Position Sitting Pulse 72 Intake Visit Reasons: Peptic Ulcer Intake Note: Patient presents to in office visit today in follow up for peptic ulcer. Patient last seen by Dr. Vail on 05/28/23. CC: Patient reports she gets a lot of nausea and occasional pressure from epigastric region. She reports a few months back she was having a lot of bleeding from hemorrhoids. Denies other GI symptoms today. 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 Accompanied by: Employer Allergies azithromycin [From ZITHROMAX] Allergy (Severe, Verified 09/16/23 12:03) GENERIC ONLY-SEVERE ABD PAIN, abdominal pain codeine [CODEINE] Allergy (Intermediate, Verified 09/16/23 12:03) NAUSEA & VOMITING,FAINTED, nausea, vomiting, syncope erythromycin base [ERYTHROMYCIN BASE] Allergy (Intermediate, Verified 09/16/23 12:03) HIVES, ABD PAIN promethazine [From PHENERGAN] Allergy (Intermediate, Verified 09/16/23 12:03) DIZZY / NAUSEATED amoxicillin [Prevpac] Allergy (Unknown, Verified 09/16/23 12:03) Unknown clarithromycin [Prevpac] Allergy (Unknown, Verified 09/16/23 12:03) Unknown HPI Peptic Ulcer HPI Details LAST VISIT: With Dr. Vail 05/28/2022 Plan 82 year old Korean speaking female? with hypothyroidism, severe anxiety,? history of lung nodule and breast cancer status post mastectomy in 1996 seen for chronic abdominal pain which comes and goes 1-2 times a week. Pain results and patient takes Pepto-Bismol or Mylanta. 11/2020 Colonoscopy showed edema, erythema with ulcerations noted from 0-20 cms - felt to be due to proctitis/stercoral ulcers or solitary rectal ulcer syndrome Moderate diverticulosis seen in the sigmoid colon. Rectal biopsies were suggestive of ischemic injury or solitary rectal ulcer syndrome. Patient was advised to schedule an EGD and a sigmoidoscopy for follow-up of rectal ulcers. She was advised to take a stool softener for constipation. And dicyclomine p.r.n. for abdominal pain. SIGMOIDOSCOPY AND UPPER ENDOSCOPY Findings: Sigmoid Colon:??Moderate to severe diverticulosis with luminal narrowing Rectum:??Normal mucosa - ulcers seen on past colonoscopy healed completely Ano-rectum:??Moderate internal hemorrhoids Colon preparation:? Good? Impression and Post Procedure Diagnosis: Endoscopy Findings: ESOPHAGUS: Mildly tortuous esophagus with increased tertiary contractions without stricture or ring. GE junction at 40 cms. Mild focal esophagitis at GE junction.? No Torres's. STOMACH: Moderate diffuse gastric erythema with prominent gastric folds - biopsied.? A few 3-5 mm benign-appearing polyps in the gastric body - biopsied. Antral biopsies were obtained to check for H pylori. DUODENUM: Normal bulb and descending duodenum. Biopsies were obtained from 3rd part of the duodenum to check for celiac sprue Colonoscopy Findings: No polyps were detected. Normal rectal mucosa - ulcers seen on past colonoscopy healed completely Moderate diverticulosis seen in the sigmoid colon Moderate hemorrhoids on retroflexed exam. Plan: Repeat Colonoscopy interval based on path results - in 3-5 years if polyps are adenomatous and 10 years if polyps are hyperplastic. PATHOLOGY RESULTS Diagnosis A. Small bowel, biopsy: Duodenal mucosa with mildly increased intraepithelial lymphocytes and preserved villous architecture. See comment. B. Stomach, antrum, biopsy: Antral-type mucosa with mild chronic inactive inflammation and intestinal metaplasia; negative for dysplasia; no Helicobacter organisms seen. C. Stomach, body, biopsy: Oxyntic mucosa with mild chronic inactive inflammation; no Helicobacter organisms seen. D. Stomach, polyps: Oxyntic mucosa with mild chronic inactive inflammation; no Helicobacter organisms seen; no mass-forming lesion identified. COMMENT: The findings in the duodenum are non-specific. The differential diagnosis is broad and includes infection (e.g. viral or H. pylori), medication/drugs (e.g. NSAIDs), gluten sensitivity/celiac disease, bacterial overgrowth, tropical sprue, immunodeficiency syndromes (e.g. IgA deficiency, CVID), autoimmune enteropathy, Crohns and collagen vascular disease, among others. Please correlate with clinical and other laboratory findings TODAY'S VISIT: Patient is here today for follow-up. Patient previously seen by Dr. Vail, had sigmoidoscopy and upper endoscopy in June of 2022, had appointment with her in November which she missed. Currently patient is complaining of epigastric discomfort postprandially, occasional nausea. Denies vomiting. Patient currently is taking sucralfate twice a day, script given by ER provider. Past June patient was seen in the ER for epigastric pain and was sent home with omeprazole and sucralfate. Workup essentially negative for any acute findings. Patient did not have any leukocytosis. Patient reports that she is moving her bowels well. Patient takes Colace twice a day. Patient denies melena, hematochezia, unintentional weight loss or ribbon like stools. However patient does admit that few months ago she had couple episodes of rectal bleed due to hemorrhoids. Patient denies dyspepsia, dysphagia or odynophagia. REPLACED BY [facility] Medical History Anxiety Arthritis Bright red blood per rectum Constipation Dysphagia GERD (gastroesophageal reflux disease) GI bleed Hematuria of unknown cause History of anemia History of colitis Hx of breast cancer Hx of syncope Hypothyroid Weight loss, unintentional Surgical History H/O left mastectomy History of ankle surgery History of esophagogastroduodenoscopy (EGD) Hx of colonoscopy Family History Father No problems noted. 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) Alcohol intake: never Patient Tobacco Use Status: Never used Tobacco Advance Directives Date on File: 10/20/20 service: No Current occupational status: retired Review of Systems Const Denies weight gain and Denies weight loss ENT Reports no additional complaints, Denies dysphagia and Denies odynophagia Card Reports no additional complaints Resp Reports no additional complaints GI Reports abdominal pain (Epigastric), Denies belching, Denies melena, Denies bloating, Denies change in bowel habits, Denies dysphagia, Denies excessive flatus, Denies dyspepsia, Denies heartburn, Denies diarrhea, Denies loose stools, Reports nausea, Denies odynophagia and Denies vomiting Reports no additional complaints Musc Reports no additional complaints Neuro Reports no additional complaints Psych Reports no additional complaints Endo Reports no additional complaints Physical Exam Vital Signs: Last Vital Signs Pulse 72 09/16/23 11:58 BP 117/67 09/16/23 11:58 BMI result Body Mass Index 25.8 Const General: healthy appearing, no acute distress and well developed Nutritional Appearance: well nourished Orientation/consciousness: patient oriented x3 HEENT Head: Yes normal to inspection, Yes normocephalic and Yes atraumatic Face and sinus: Yes normal facial exam Mouth: Normal oral and palatal mucosa present Throat: Yes posterior oropharynx normal, Yes tonsils normal and Yes uvula midline Eyes General: appearance normal, both eyes and all related structures Neck Neck: Yes normal visual inspection, Yes full ROM and Yes trachea midline Thyroid: Thyroid normal Resp Effort & Inspection: normal respiratory effort, able to speak in complete sentences, no tracheal deviation and symmetric chest movement Auscultation: clear to auscultation bilaterally Cardio Rate: regular rate Heart sounds: S1 normal heart sound present and S2 normal heart sound present GI Inspection: Yes normal to inspection and No distended Palpation (GI): Soft to palpation, not firm, nontender and No hepatosplenomegaly present Auscultation: normal bowel sounds General: Yes no CVA tenderness Back/Spine/Pelvis Back: no CVA tenderness Skin General skin exam: elasticity normal, turgor normal and dry skin Neuro General: patient oriented x3 Psych Appearance: grossly normal Mental Status: mental status grossly normal Assessment & Plan Assessment & Plan (1) Epigastric pain: Code(s): R10.13 - Epigastric pain (2) Chronic constipation: Code(s): K59.09 - Other constipation Plan Discussed with patient the importance of avoiding dietary triggers and late night snacking. Staying upright for minimum 3 hours after meals discussed with her. Patient can start taking lansoprazole in the morning half an hour before breakfast. She can continue taking sucralfate twice a day at noon and bedtime. Patient was encouraged to increase fluid intake and activity to promote better bowel motility. Avoid food that it spicy, fried. Continue taking Colace twice a day. Patient will follow-up with her GI provider in 2 months, sooner on as needed basis. Patient is agreeable to this plan and verbalizes understanding of instructions. She was given the opportunity to ask questions and all questions answered. Thank you for allowing me to participate in her care Medications: New lansoprazole 30 mg PO DAILY 90 caps 2RF Refilled sucralfate (Carafate) 10 mL PO BID 420 mL 2RF Coding Level of Care Code Est Pt Level 4 (86640) Diagnoses Epigastric pain R10.13 Chronic constipation K59.09 Time Spent (min) 35 Comment 25 minutes spent with patient and additional 10 minutes spent reviewing her records
[2023-09-16 11:58] VITALS: BP 117/67; PULSE 72; BMI 25.8
== END 2023-09-16 12:37 | disposition home or self-care (01) ==
PROVIDERS: PCP Internal Medicine; Visit Provider Nurse Practitioner Family
DX: R10.13 Epigastric pain (principal); K59.09 Other constipation
CPT/HCPCS: 99214

== ENCOUNTER → 2023-09-16 11:44 | Outpatient (BNVA) | payer OTHER, SELFPAY | PROVIDERS: PCP Internal Medicine; Visit Provider Nurse Practitioner Family | DX: K59.09 Other constipation (principal); R10.13 Epigastric pain | CPT/HCPCS: 99212 ==

== ENCOUNTER 2023-10-29 09:22 | Inpatient (IN) | payer OTHER, SELFPAY ==
--- NOTE | ~2023-10-29 | CT_ITS ---
EXAMINATION: CT brain and CT cervical spine without contrast. CLINICAL INDICATION: Fall, head strike. COMPARISON: CT brain 04/26/2023 TECHNIQUE: 5 mm thin axial and reformatted 2 mm thin sagittal and coronal images of brain were obtained without contrast. Subsequently axial 3 mm thin and reformatted 2 mm thin sagittal and coronal images of cervical spine were obtained. DLP 922. FINDINGS: BRAIN: There is no acute intra-axial, extra-axial bleed, masses or midline shift. There is no acute infarction in evolution. There is no edema. The lateral ventricles are symmetrical in size but moderately enlarged. There is mild periventricular hypodensity in both cerebral hemispheres without mass effect. No abnormality seen in the posterior fossa. Bone windows reveal no calvarial abnormality. There is no scalp soft tissue abnormality. There is normal aeration of bilateral paranasal sinuses and mastoid air cells. CERVICAL SPINE: There is normal cervical lordosis. The vertebral heights, alignment and disc heights are normal. There is no visible acute fracture, dislocation or subluxation seen. The craniovertebral junction and C1-C2 alignment is normal. There is mild right C4-C5 and C5-C6 facet joint arthropathy and hypertrophy. The prevertebral and paravertebral soft tissues are normal. There is bilateral apical airspace disease likely chronic scarring or atelectasis with pleural thickening CT/CT head/brain wo IV con IMPRESSION: No acute intracranial process seen. There is no acute fracture, dislocation or subluxation.
--- NOTE | ~2023-10-29 | CT_ITS ---
EXAMINATION: CT brain and CT cervical spine without contrast. CLINICAL INDICATION: Fall, head strike. COMPARISON: CT brain 04/26/2023 TECHNIQUE: 5 mm thin axial and reformatted 2 mm thin sagittal and coronal images of brain were obtained without contrast. Subsequently axial 3 mm thin and reformatted 2 mm thin sagittal and coronal images of cervical spine were obtained. DLP 922. FINDINGS: BRAIN: There is no acute intra-axial, extra-axial bleed, masses or midline shift. There is no acute infarction in evolution. There is no edema. The lateral ventricles are symmetrical in size but moderately enlarged. There is mild periventricular hypodensity in both cerebral hemispheres without mass effect. No abnormality seen in the posterior fossa. Bone windows reveal no calvarial abnormality. There is no scalp soft tissue abnormality. There is normal aeration of bilateral paranasal sinuses and mastoid air cells. CERVICAL SPINE: There is normal cervical lordosis. The vertebral heights, alignment and disc heights are normal. There is no visible acute fracture, dislocation or subluxation seen. The craniovertebral junction and C1-C2 alignment is normal. There is mild right C4-C5 and C5-C6 facet joint arthropathy and hypertrophy. The prevertebral and paravertebral soft tissues are normal. There is bilateral apical airspace disease likely chronic scarring or atelectasis with pleural thickening CT/CT cervical spine wo IV con IMPRESSION: No acute intracranial process seen. There is no acute fracture, dislocation or subluxation.
[2023-10-29 09:31] VITALS: BP 100/46; BP 116/78; PULSE 85; PULSE 87; RESP 20; TEMP 37; O2SAT 95; BMI 26.6
--- NOTE | 2023-10-29 09:36 | ECG_ITS ---
Test Reason : dizziness Blood Pressure : / mmHG Vent. Rate : 076 BPM Atrial Rate : 076 BPM P-R Int : 168 ms QRS Dur : 076 ms QT Int : 428 ms P-R-T Axes : 080 -11 058 degrees QTc Int : 481 ms Normal sinus rhythm Minimal voltage criteria for LVH, may be normal variant ( R in aVL ) Septal infarct (cited on or before 13-JUN-2023) Abnormal ECG When compared with ECG of 13-JUN-2023 16:31, Nonspecific T wave abnormality, worse in Anterolateral leads Referred By: Arely Love Electronically Signed By:MARIANA COLLADO MD
--- NOTE | 2023-10-29 09:38 | ED_ITS ---
HPI - Fall General Chief Complaint: Fall Stated Complaint: UNWIT FALL,L RIB/NECK PAIN,BRUISE L EYEBROW Time Seen by Provider: 10/29/23 09:26 Source: patient, old records reviewed and other (OFFICE MANAGER EXECUTIVE ASSISTANT ) Mode of arrival: EMS Limitations: no limitations History of Present Illness HPI Narrative: 83 yo female from home hx of anxiety, chronic intermittent dizziness, breast cancer s/p L mastectomy, colitis, GIB, hypothyroidism, mild cognitive impairment here with c/o trying to get up this AM suspect to the commode and OFFICE MANAGER EXECUTIVE ASSISTANT then heard her yell. [place] a bang and patient was on the floor awake and at baseline. Patient states she felt dizzy getting up. No CP. c/o pain on R side of head after fall. patient has been worked up for this in past. OFFICE MANAGER EXECUTIVE ASSISTANT does not poor appetite and they do have a hard time getting food into her. MD complaint: fall Onset (ago): minute(s) (just prior to arrival ) Fall from: standing Fall witnessed: no Place fall occurred: home Loss of consciousness: none Prolonged down time: no Symptoms prior to fall: dizziness Context: history of frequent falls Location of injury: head Severity: mild Quality: dull Associated symptoms (after fall): headache Related Data Home Medications Medication Instructions Recorded Confirmed levothyroxine 75 mcg tablet 75 mcg PO DAILY 06/21/23 Previous Rx's Medication Instructions Recorded acetaminophen 325 mg tablet 650 mg (2 x 325 mg) PO Q6H PRN 09/27/20 (Athenol) fever or pain #30 tabs dicyclomine 10 mg capsule 10 mg PO TID PRN abd pain 30 days 05/28/22 #30 caps docusate sodium 100 mg capsule 100 mg PO BID 30 days #60 caps 05/28/22 prochlorperazine maleate 10 mg 10 mg PO Q8H PRN nausea and 07/02/22 tablet (Compazine) vomiting #10 tabs meclizine 25 mg tablet 25 mg PO TID PRN dizziness #14 tabs 02/24/23 albuterol sulfate 90 mcg/actuation 2 puff inhalation Q4-6H PRN 03/22/23 aerosol inhaler shortness of breath or wheezing #8.5 grams lansoprazole 30 mg capsule,delayed 30 mg PO DAILY #90 caps 09/16/23 release sucralfate 100 mg/mL oral 10 ml PO BID #420 mL 09/16/23 suspension (Carafate) food supplemt, lactose-reduced 1 ea PO BID #1,422 mL 10/29/23 (Ensure Original oral liquid) Allergies Allergy/AdvReac Type Severity Reaction Status Date / Time azithromycin [From ZITHROMAX] Allergy Severe GENERIC Verified 10/29/23 09:46 ONLY-SEVERE ABD PAIN, abdominal pain codeine [CODEINE] Allergy Intermediate NAUSEA & Verified 10/29/23 09:46 VOMITING,FAINTED, nausea, vomiting, syncope erythromycin base Allergy Intermediate HIVES, ABD Verified 10/29/23 09:46 [ERYTHROMYCIN BASE] PAIN promethazine [From PHENERGAN] Allergy Intermediate DIZZY / Verified 10/29/23 09:46 NAUSEATED amoxicillin [Prevpac] Allergy Unknown Unknown Verified 10/29/23 09:46 clarithromycin [Prevpac] Allergy Unknown Unknown Verified 10/29/23 09:46 Review of Systems 2 Review of Systems: Constitutional : No Fever, No Chills, No Fatigue ENT/Mouth : No sore throat, No Rhinorrhea Eyes: No Eye Pain, No Swelling, No Redness Cardiovascular : No Chest Pain, No SOB, No Dyspnea on Exertion Respiratory : No Cough, No Sputum Gastrointestinal : No Nausea, No Vomiting, No Diarrhea, No abdominal Pain Genitourinary : No Dysuria, No Urinary Frequency, No Hematuria, Musculoskeletal : No joint pain, No Myalgias, No Joint Swelling Skin : No Skin Lesions, No rash Neuro : No Weakness, No Numbness, pos Dizziness, positive Headache Psych : No Anxiety/Panic, No Depression Heme/Lymph: No Bruising, No Bleeding,No Lymphadenopathy Endocrine : No Polyuria, No Polydipsia All other systems reviewed and are negative PMFSH Past Medical History Attestation statement: The following information was validated with the patient. Source: old records reviewed Medical History Hematuria of unknown cause Hx of breast cancer Hypothyroid Arthritis History of anemia History of colitis Dysphagia Weight loss, unintentional GI bleed Hx of syncope Bright red blood per rectum Constipation GERD (gastroesophageal reflux disease) Anxiety Surgical History History of esophagogastroduodenoscopy (EGD) Hx of colonoscopy H/O left mastectomy History of ankle surgery Family History Family History Father No problems noted. 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 Oriented X2 (baseline). No acute distress. Eyes: Pupils equal, round and reactive to light. ENT: Pharynx normal. atraumatic Neck: Normal inspection. Neck supple. CVS: Normal heart rate and rhythm. Pulses normal. Respiratory: No respiratory distress. Breath sounds normal. Abdomen: Soft and nontender. Skin: Skin warm and dry. Normal skin color. Normal skin turgor. Extremities: No lower extremity edema. No calf ttp Neuro: Oriented X 2. No motor deficit. No sensory deficit. Course Course Course Narrative: signed out to Dr. Man Reevaluation(s) Reevaluation #1: now has hives - no resp issues - IV steroids, pepcid and benadryl ordered Reevaluation #2: FÁTIMA give fluid bolus and put on rate Medications Administered Discontinued Medications Generic Name Dose Route Start Last Admin Trade Name Freq PRN Reason Stop Dose Admin Acetaminophen 650 mg 10/29/23 10:05 10/29/23 10:40 Acetaminophen Oral Liquid 650 Mg/20.3 Ml Solution PO 10/29/23 10:06 650 mg ONCE ONE Administration Medical Decision Making Medical Decision Making MDM Narrative: 83 yo female from home hx of anxiety, chronic intermittent dizziness, breast cancer s/p L mastectomy, colitis, GIB, hypothyroidism, mild cognitive impairment here with recurrent dizziness and fall - has been seen for same in past. At this time basic labs, CT head/cspine for trauma, EKG, no CP/SOB to suggest ACS and VTE. Possible anemia, dehydration, chronic dizziness, fall risk. Differential Diagnosis Differential Diagnoses: The differential diagnosis associated with the presentation includes anemia, dehydration, chronic dizziness, fall risk. Admission/Observation Consideration of admission/observation: Escalation of care including admission/observation considered will need admission for FÁTIMA Lab Data MDM Lab Attestation statement: I reviewed the patient's lab results. 10/29/23 10:09 10/29/23 10:09 Labs: Lab Results 10/29/23 Range/Units 10:09 WBC 11.5 H (4.8-10.8) X10*3/uL RBC 5.28 (4.20-5.50) X10*6/uL Hgb 14.9 (12.0-16.0) g/dl Hct 45.3 (37.0-47.0) % MCV 85.8 (80.0-98.0) fL MCH 28.2 (27.0-33.0) pg MCHC 32.9 (31.0-35.0) g/dl RDW 15.9 (11.0-16.0) % Plt Count 241 (160-400) X10*3/uL MPV 9.6 (9.4-12.3) fL Immature Gran % (Auto) 0.3 (0.0-0.4) % Neut % (Auto) 84.1 H (45-73) % Lymph % (Auto) 10.8 L (20-40) % [place] % (Auto) 4.2 (2-11) % Eos % (Auto) 0.4 (0-4) % Baso % (Auto) 0.2 (0-2) % Lymph # (Auto) 1.2 (1.2-4.9) X10*3/uL [place] # (Auto) 0.5 (0.1-1.2) X10*3/uL Eos # (Auto) 0.1 (0.0-0.4) X10*3/uL Baso # (Auto) 0.0 (0.0-0.2) X10*3/uL Abs Immat Gran (auto) 0.04 H (0.00-0.03) X10*3/uL Absolute Neuts (auto) 9.6 H (2.0-8.3) x10*3/uL Absolute Nucleated RBC 0.000 (0.0-0.012) X10*3/uL Nucleated RBC % (auto) 0.0 (0.0-0.2) /100WBC PT 12.9 (11.1-13.3) SEC INR 1.1 (0.9-1.1) Sodium 140 (135-145) mmol/L Potassium 4.8 (3.3-5.1) mmol/L Chloride 107 (96-108) mmol/L Carbon Dioxide 21 L (22-29) mmol/L Anion Gap 17 (12-20) BUN 37 H (9-16) mg/dL Creatinine 2.51 H (0.5-1.4) mg/dL Estim Creat Clear Calc 17.2 Estimated GFR 18 Random Glucose 223 H (60-115) mg/dL Calcium 9.7 (8.4-10.2) mg/dL Magnesium 2.2 (1.6-2.6) mg/dL Total Bilirubin 0.8 (0.0-1.0) mg/dL Direct Bilirubin 0.2 (0.0-0.5) mg/dL AST 30 (5-31) U/L ALT 19 (0-31) U/L Alkaline Phosphatase 67 (39-117) U/L Total Creatine Kinase 521 H (26-140) U/L Troponin I High Sens 11.3 D (<3.5-17.0) ng/L Total Protein 7.1 (6.5-8.0) g/dL Albumin 3.7 (3.5-5.0) g/dL Independent Interpretation I performed an independent interpretation of an: EKG and CT Scan Interpretation: Rate: 76 Rhythm: NSR [place]: left, LVH Normal P waves. Normal KYLER. Normal QRS complex. ST T wave : normal no CIRILO qTC: normal prior studies: no acute ischemia The study has been interpreted contemporaneously by me. . Independent Historian Clinical information obtained from an independent historian. History obtained from or confirmed by: EMS and Other (OFFICE MANAGER EXECUTIVE ASSISTANT) External Record Review External record reviewed: Inpatient record Discharge Plan Discharge Clinical Impression: Dizziness, FÁTIMA (acute kidney injury) Allergic reaction Qualifiers: Encounter type: initial encounter Qualified Code(s): T78.40XA - Allergy, unspecified, initial encounter Fall Qualifiers: Encounter type: initial encounter Qualified Code(s): W19.XXXA - Unspecified fall, initial encounter Patient Disposition: Still a Patient Prescriptions: New Ensure Original Liquid 1 ea PO BID Qty: 1422 3RF No Action acetaminophen [Athenol] 325 mg tablet 650 mg PO Q6H PRN (Reason: fever or pain) Qty: 30 0RF prochlorperazine maleate [Compazine] 10 mg tablet 10 mg PO Q8H PRN (Reason: nausea and vomiting) Qty: 10 0RF meclizine 25 mg tablet 25 mg PO TID PRN (Reason: dizziness) Qty: 14 0RF albuterol sulfate 90 mcg/actuation HFA aerosol inhaler 2 puff inhalation Q4-6H PRN (Reason: shortness of breath or wheezing) Qty: 8.5 0RF docusate sodium 100 mg capsule 100 mg PO BID 30 Days Qty: 60 3RF dicyclomine 10 mg capsule 10 mg PO TID PRN (Reason: abd pain) 30 Days Qty: 30 1RF levothyroxine 75 mcg tablet 75 mcg PO DAILY lansoprazole 30 mg capsule,delayed release(DR/EC) 30 mg PO DAILY Qty: 90 2RF sucralfate [Carafate] 100 mg/mL suspension 10 ml PO BID Qty: 420 2RF
[2023-10-29 10:14] LABS: MANUAL DIFF FLAG NO
[2023-10-29 10:16] LABS: Basophils Percent Auto 0.2 % (0-2); Eosinophils Absolute Auto 0.1 X10*3/uL (0.0-0.4); Eosinophils Percent Auto 0.4 % (0-4); Hematocrit 45.3 % (37.0-47.0); Hemoglobin 14.9 g/dl (12.0-16.0); Imm Gran Abs Auto 0.04 X10*3/uL (0.00-0.03); Imm Gran Pct Auto 0.3 % (0.0-0.4); Lymphocytes Absolute Auto 1.2 X10*3/uL (1.2-4.9); Lymphocytes Percent Auto 10.8 % (20-40); Mean Corpuscular HGB Conc 32.9 g/dl (31.0-35.0); Mean Corpuscular Hemoglobin 28.2 pg (27.0-33.0); Mean Corpuscular Volume 85.8 fL (80.0-98.0); Mean Platelet Volume 9.6 fL (9.4-12.3); Monocytes Absolute Auto 0.5 X10*3/uL (0.1-1.2); Monocytes Percent Auto 4.2 % (2-11); Neutrophils Absolute Auto 9.6 x10*3/uL (2.0-8.3); Neutrophils Percent Auto 84.1 % (45-73); Platelet Count 241 X10*3/uL (160-400); Red Blood Count 5.28 X10*6/uL (4.20-5.50); Red Cell Distribution Width 15.9 % (11.0-16.0); White Blood Count 11.5 X10*3/uL (4.8-10.8)
[2023-10-29 10:27] LABS: INTERNATIONAL NORM RATIO 1.1 (0.9-1.1); Prothrombin Time 12.9 SEC (11.1-13.3)
[2023-10-29] MEDS: Acetaminophen Oral Liquid 650 MG/20.3 ML SOLUTION PO (10:40)
[2023-10-29 10:50] LABS: Alanine Aminotransferase 19 U/L (0-31); Albumin Level 3.7 g/dL (3.5-5.0); Alkaline Phosphatase 67 U/L (39-117); Anion Gap 17 (12-20); Aspartate Amino Transferase 30 U/L (5-31); Bilirubin Direct 0.2 mg/dL (0.0-0.5); Bilirubin Total 0.8 mg/dL (0.0-1.0); Blood Urea Nitrogen 37 mg/dL (9-16); Calcium 9.7 mg/dL (8.4-10.2); Carbon Dioxide 21 mmol/L (22-29); Chloride 107 mmol/L (96-108); Creatinine Clr Calc Pharmacy 17.2; Estimated Glomerular Filt Rate 18; Glucose Random 223 mg/dL (60-115); Magnesium 2.2 mg/dL (1.6-2.6); Potassium 4.8 mmol/L (3.3-5.1); Sodium 140 mmol/L (135-145); Total Protein 7.1 g/dL (6.5-8.0); Troponin-I High Sensitivity 11.3 ng/L (<3.5-17.0)
[2023-10-29] MEDS: Famotidine/PF 20 MG/2 ML VIAL IVPUSH (10:56)
[2023-10-29] MEDS: diphenhydrAMINE HCL 50 MG/ML VIAL 25 MG IVPUSH (10:56)
[2023-10-29] MEDS: methylPREDNISolone Sod Succ 125 MG/2 ML VIAL IVPUSH (10:56)
[2023-10-29] MEDS: 0.9 % Sodium Chloride 1,000 ML 100 ML IVCONT (10:57)
[2023-10-29] MEDS: 0.9 % Sodium Chloride 1,000 ML 999 ML IV (10:57)
--- NOTE | 2023-10-29 11:23 | PC.NURSE ---
Pt assessed to have new onset of hives over occipital head, left side of face, and left side of body. Provider notified. Medication ordered and administered (refer to EMAR). Pt sx now resolving.
[2023-10-29 12:36] VITALS: BP 129/53; PULSE 78; RESP 18; O2SAT 97
[2023-10-29 12:55] LABS: Appearance Urine Cloudy; Color Urine Yellow; Glucose Urine UA Negative (Negative); Leukocyte Esterase Urine Negative (Negative); Nitrite Urine Negative (Negative); UMIC TRIGGER UACC YES; Urine Blood Negative (Negative); Urine Ketones Negative (Negative); Urine Protein 30 (1+) mg/dL (Neg-Trace)
[2023-10-29 12:58] LABS: Bacteria Urine None Seen (None Seen); Calcium Oxalate Crystals Urine Present; Hyaline Casts Urine >20 /LPF (0-2); RBC Urine 0-2 /HPF (0-2); WBC Urine 0-5 /HPF (0-5)
--- NOTE | 2023-10-29 13:20 | PHA.MEDREC ---
Pharmacy Consult ? Medication Reconciliation Pharmacy has completed the medication reconciliation. SPOKE TO ZOE HERMAN. MANY PRN MEDS, ONLY LANSOPRAZOLE AND LEVOTHYROXINE MAINTANENCE
--- NOTE | 2023-10-29 14:31 | PM.IMHP ---
History of Present Illness Date of Service: 10/29/23 Chief Complaint: Fall 83 yo female from home hx of anxiety, chronic intermittent dizziness, breast cancer s/p L mastectomy, colitis, GIB, hypothyroidism and mild cognitive impairment.This morning she was getting up to the commode and fell. Her SPECIAL DELIVERY MAIL CARRIER heard the fall and was quickly by her side. Patient denied any loss of consciousness, chest pain, shortness of breath. she has a history of stomach problems and does not like to eat much food although her SPECIAL DELIVERY MAIL CARRIER does encourage her to and drink. According to the SPECIAL DELIVERY MAIL CARRIER the patient has not felt well over the last 3 days and has not been eating and drinking. In the ER, due to the full there was a head CT and cervical spine CT which were both negative for any acute abnormalities patient is noted to have an elevated creatinine of 2.51, no fever, very mild leukocytosis, negative urinalysis. Patient was given a dose of Pepcid, Solu-Medrol, Benadryl, 1 L of IV fluid. She will be admitted for further management and treatment of FÁTIMA. Review of Systems Review of Systems: Denies any recent fever chills or decrease in appetite respiratory denied sob cardiovascular denied chest pain gastrointestinal denies any dysphagia abdominal pain nausea vomiting or diarrhea genitourinary denies any dysuria frequency or hematuria musculoskeletal denies any joint pain or swelling neuropsych denies any weakness or seizures all other systems reviewed are negative [facility] Medical History Hematuria of unknown cause Hx of breast cancer Hypothyroid Arthritis History of anemia History of colitis Dysphagia Weight loss, unintentional GI bleed Hx of syncope Bright red blood per rectum Constipation GERD (gastroesophageal reflux disease) Anxiety Family History Father No problems noted. Mother Hx of colon cancer, stage IV Surgical History History of esophagogastroduodenoscopy (EGD) Hx of colonoscopy H/O left mastectomy History of ankle surgery Social History Household Members: None Housing: Apartment Do you presently have visiting nurse or other home services: Yes (SPECIAL DELIVERY MAIL CARRIER) Alcohol intake: never Patient Tobacco Use Status: Never used Tobacco Smoked in Last 30 Days: No Use of substances other than those prescribed or required for medical reasons: No Advance Directives: Yes Advance Directives on File: Yes Advance Directives Date on File: 10/20/20 service: No Current occupational status: retired Meds Allergies Allergy/AdvReac Type Severity Reaction Status Date / Time azithromycin [From ZITHROMAX] Allergy Severe GENERIC Verified 10/29/23 09:46 ONLY-SEVERE ABD PAIN, abdominal pain codeine [CODEINE] Allergy Intermediate NAUSEA & Verified 10/29/23 09:46 VOMITING,FAINTED, nausea, vomiting, syncope erythromycin base Allergy Intermediate HIVES, ABD Verified 10/29/23 09:46 [ERYTHROMYCIN BASE] PAIN promethazine [From PHENERGAN] Allergy Intermediate DIZZY / Verified 10/29/23 09:46 NAUSEATED amoxicillin [Prevpac] Allergy Unknown Unknown Verified 10/29/23 09:46 clarithromycin [Prevpac] Allergy Unknown Unknown Verified 10/29/23 09:46 Active Medications: Current Medications Sodium Chloride (Ns) 1,000 mls @ 100 mls/hr IVCONT .Q10H JABARI Last Admin: 10/29/23 10:57 Dose: 100 mls/hr Home Medications Medication Instructions Recorded Confirmed Last Taken Type levothyroxine 75 mcg tablet 75 mcg PO DAILY 06/21/23 10/29/23 Unknown History docusate sodium 100 mg capsule 100 mg PO BID PRN Constipation 10/29/23 10/29/23 Unknown History Physical Exam Vital Signs and Narrative: Vital Signs: Last Vital Signs Temp 98.6 F 10/29/23 09:31 Pulse 78 10/29/23 12:36 Resp 18 10/29/23 12:36 BP 129/53 L 10/29/23 12:36 Pulse Ox 97 10/29/23 12:36 O2 Del Method Room Air 10/29/23 12:36 BMI result Body Mass Index 26.6 Appearing in no acute distress head is normocephalic atraumatic eyes pupils are PERRLA sclera is anicteric mouth throat mucous membranes are intact and moist neck is supple no lymphadenopathy, no JVD noted lung sounds are clear to auscultation heart regular rate rhythm, clear S1, S2 positive bowel sounds, abdomen is soft, nontender neuro patient is alert x3, no focal deficits Results Labs 10/29/23 10:09 10/29/23 10:09 Labs: Laboratory Results - last 24 hr 10/29/23 10/29/23 10:09 12:34 MCV 85.8 MCH 28.2 MCHC 32.9 RDW 15.9 Plt Count 241 MPV 9.6 Immature Gran % (Auto) 0.3 Neut % (Auto) 84.1 H Lymph % (Auto) 10.8 L [place] % (Auto) 4.2 Eos % (Auto) 0.4 Baso % (Auto) 0.2 Lymph # (Auto) 1.2 [place] # (Auto) 0.5 Eos # (Auto) 0.1 Baso # (Auto) 0.0 Abs Immat Gran (auto) 0.04 H Absolute Neuts (auto) 9.6 H Absolute Nucleated RBC 0.000 Nucleated RBC % (auto) 0.0 PT 12.9 INR 1.1 Anion Gap 17 Estim Creat Clear Calc 17.2 Estimated GFR 18 Random Glucose 223 H Calcium 9.7 Magnesium 2.2 Total Bilirubin 0.8 Direct Bilirubin 0.2 AST 30 ALT 19 Alkaline Phosphatase 67 Total Creatine Kinase 521 H Total Protein 7.1 Albumin 3.7 Urine Color Yellow Urine Appearance Cloudy Urine pH 5.0 Ur Specific [place] 1.020 Urine Protein 30 (1+) H Urine Glucose (UA) Negative Urine Ketones Negative Urine Blood Negative Urine Nitrite Negative Ur Leukocyte Esterase Negative Urine RBC 0-2 Urine WBC 0-5 Ur Squamous Epith Cells 11-20 Calcium Oxalate Crystal Present Urine Bacteria None Seen Hyaline Casts >20 Imaging Radiologist's Impressions: Impressions Cervical Spine CT 10/29/23 10:49 IMPRESSION: No acute intracranial process seen. There is no acute fracture, dislocation or subluxation. Head CT 10/29/23 10:49 IMPRESSION: No acute intracranial process seen. There is no acute fracture, dislocation or subluxation. Assessment and Plan (1) FÁTIMA (acute kidney injury): Status: Acute Plan 83 year old women who loves with her SPECIAL DELIVERY MAIL CARRIER, admitted after a fall and found to have FÁTIMA secondary to dehydration FÁTIMA Secondary to dehydration chronically poor appetite at home Start IV fluids Monitor BMP closely consult nephrology if creat does not respond encourage oral intake Fall no injury PT consult Asthma mild intermit no exacerbation continue albuterol as needed hyppothyroidism continue levothyroxine GERD PPI DVT prophylaxis with heparin Full code patient will need 2 inpatient midnights for tx of FÁTIMA requiring IV fluids and close monitoring of lab work Quality Stroke Does the patient have a stroke diagnosis?: No VTE Prior VTE?: No VTE Risk Level:: Medical - moderate - high VTE Device Contraindication: Treatment Not Indicated VTE Drug Contraindication: N/A - Med Ordered
[2023-10-29 14:34] VITALS: BP 116/50; PULSE 76; RESP 16; O2SAT 95
[2023-10-29 16:08] VITALS: BP 125/55; PULSE 80; RESP 20; O2SAT 95
[2023-10-29] MEDS: 0.9 % Sodium Chloride 1,000 ML 75 ML IVCONT ×2 (16:47→20:33)
[2023-10-29] MEDS: Heparin Sodium,Porcine 5,000 UNIT/ML VIAL 5000 UNIT SUBCUT (16:51)
--- NOTE | 2023-10-29 17:02 | PC.NURSE ---
Report given to Romy VAZ.
[2023-10-29 17:30] VITALS: BP 116/56; PULSE 75; RESP 17; TEMP 36.8; O2SAT 97
[2023-10-29 17:50] LABS: Glucose, Whole Blood 143 mg/dL (60-115)
--- NOTE | 2023-10-29 18:18 | PC.NURSE ---
Hives present all over patient body,not itchy,no resp distress,MAURISIO Sarabia notified
[2023-10-29 20:00] VITALS: BP 120/56; PULSE 69; RESP 16; TEMP 36.7; O2SAT 96
[2023-10-29] MEDS: Sucralfate Oral Suspension 1 GM/10 ML ORAL.SUSP PO (20:33)
[2023-10-30] MEDS: Heparin Sodium,Porcine 5,000 UNIT/ML VIAL 5000 UNIT SUBCUT ×2 (03:56→16:32)
[2023-10-30 04:00] VITALS: BP 137/89; PULSE 83; RESP 16; TEMP 36.4; O2SAT 96
[2023-10-30] MEDS: Levothyroxine Sodium 75 MCG TABLET PO (06:07)
[2023-10-30] MEDS: Omeprazole 20 MG CAPSULE.DR PO (06:07)
[2023-10-30 06:51] LABS: Hematocrit 39.9 % (37.0-47.0); Hemoglobin 13.6 g/dl (12.0-16.0); Mean Corpuscular HGB Conc 34.1 g/dl (31.0-35.0); Mean Corpuscular Hemoglobin 28.7 pg (27.0-33.0); Mean Corpuscular Volume 84.2 fL (80.0-98.0); Platelet Count 240 X10*3/uL (160-400); Red Blood Count 4.74 X10*6/uL (4.20-5.50); Red Cell Distribution Width 16.2 % (11.0-16.0)
[2023-10-30 07:10] LABS: Anion Gap 11 (12-20); Blood Urea Nitrogen 31 mg/dL (9-16); Calcium 8.7 mg/dL (8.4-10.2); Carbon Dioxide 20 mmol/L (22-29); Chloride 114 mmol/L (96-108); Creatinine Clr Calc Pharmacy 33.5; Estimated Glomerular Filt Rate 40; Glucose Random 156 mg/dL (60-115); Potassium 3.8 mmol/L (3.3-5.1); Sodium 141 mmol/L (135-145)
[2023-10-30] MEDS: Sucralfate Oral Suspension 1 GM/10 ML ORAL.SUSP PO ×2 (07:35→20:33)
[2023-10-30 08:00] VITALS: BP 143/63; PULSE 80; RESP 17; TEMP 37; O2SAT 95
[2023-10-30 08:54] VITALS: BP 143/63; PULSE 80; O2SAT 95
--- NOTE | 2023-10-30 11:07 | HO.PM.IMPN ---
Subjective Subjective Date of Service: 10/30/23 Interval History: seen and evaluated confused sweetly, gets anxious on occasions have generalized rash confused Cr improving No complaints Review of Systems Review of Systems: Yes all other systems are reviewed and are negative Physical Exam Vital Signs: Vital Signs: Last Vital Signs Temp 98.6 F 10/30/23 08:00 Pulse 80 10/30/23 08:54 Resp 17 10/30/23 08:00 BP 143/63 H 10/30/23 08:54 Pulse Ox 95 10/30/23 08:54 O2 Del Method Room Air 10/30/23 08:00 BMI result Body Mass Index 26.6 Const: Other: Constitutional : Awake, interactive, frail, not in distress Neck : Normal inspection, Supple Cardiovascular : RRR, no JVP, no lower extremity edema Respiratory : good bilateral air entry, no crackles, wheezes or rhonchi Gastrointestinal: soft, lax, Normal bowel sounds Skin : Warm, Dry, generalized macular rash on the trunk and extremities Neurological : Alert & disoriented x3, No focal deficit but overall confused Objective Data Active Medications Acetaminophen (Acetaminophen 325 Mg Tablet) 650 mg PO Q6H PRN PRN Reason: Pain, Mild (Pain Scale 1-3) Albuterol Sulfate (Albuterol Sulfate 90 Mcg 8 Gm Inhaler) 2 puff INHALE Q4H PRN PRN Reason: shortness of breath or wheezing Diphenhydramine HCl (Diphenhydramine Hcl 50 Mg/Ml Vial) 12.5 mg IVPUSH Q6H PRN PRN Reason: Itching Diphenhydramine HCl (Diphenhydramine Hcl 25 Mg Capsule) 25 mg PO Q6H PRN PRN Reason: Allergic Reaction Docusate Sodium (Docusate Sodium 100 Mg Capsule) 100 mg PO BID PRN PRN Reason: Constipation Famotidine (Famotidine 20 Mg Tablet) 20 mg PO BID [facility] Heparin Sodium (Porcine) (Heparin Sodium,Porcine 5,000 Unit/Ml Vial) 5,000 unit SUBCUT Q12H [facility] Last Admin: 10/30/23 03:56 Dose: 5,000 unit Documented By: THOR Sodium Chloride (Ns) 1,000 mls @ 75 mls/hr IVCONT .[id number] [facility] Last Infusion: 10/30/23 10:39 Dose: Infused Documented By: RUDY Levothyroxine Sodium (Levothyroxine Sodium 75 Mcg Tablet) 75 mcg PO DAILY@0600 [facility] Last Admin: 10/30/23 06:07 Dose: 75 mcg Documented By: THOR Meclizine HCl (Meclizine Hcl 25 Mg Tablet) 25 mg PO TID PRN PRN Reason: dizziness Omeprazole (Omeprazole 20 Mg Capsule.Dr) 20 mg PO DAILY@0630 [facility] Last Admin: 10/30/23 06:07 Dose: 20 mg Documented By: THOR Ondansetron HCl (Ondansetron Hcl 4 Mg/2 Ml Vial) 4 mg IVPUSH Q8H PRN PRN Reason: Nausea and Vomiting Sodium Chloride (0.9 % Sodium Chloride Flush 3 Ml Syringe) 3 ml IVFLUSH QSHIFT [facility] Last Admin: 10/30/23 07:33 Dose: Not Given Documented By: RUDY Non-Admin Reason: Headache Sucralfate (Sucralfate Oral Suspension 1 Gm/10 Ml Oral.Susp) 1 gm PO BID [facility] Last Admin: 10/30/23 07:35 Dose: 1 gm Documented By: RUDY Labs 10/30/23 06:36 10/30/23 06:36 Labs: Laboratory Results - last 24 hr 10/29/23 10/29/23 10/30/23 12:34 17:42 06:36 MCV 84.2 MCH 28.7 MCHC 34.1 RDW 16.2 H Plt Count 240 MPV 10.0 Absolute Nucleated RBC 0.000 Nucleated RBC % (auto) 0.0 Anion Gap 11 L Estim Creat Clear Calc 33.5 Estimated GFR 40 POC Glucose 143 H Random Glucose 156 H Calcium 8.7 D Magnesium 2.0 Urine Color Yellow Urine Appearance Cloudy Urine pH 5.0 Ur Specific [place] 1.020 Urine Protein 30 (1+) H Urine Glucose (UA) Negative Urine Ketones Negative Urine Blood Negative Urine Nitrite Negative Ur Leukocyte Esterase Negative Urine RBC 0-2 Urine WBC 0-5 Ur Squamous Epith Cells 11-20 Calcium Oxalate Crystal Present Urine Bacteria None Seen Hyaline Casts >20 Assessment and Plan (1) FÁTIMA (acute kidney injury): Status: Acute (2) Fall: Status: Acute (3) Allergic reaction: Status: Acute (4) Failure to thrive in adult: Status: Acute Plan 83 year old women who loves with her SOLUTIONS DEVELOPMENT ANALYST, admitted after a fall and found to have FÁTIMA secondary to dehydration FÁTIMA Secondary to dehydration from chronically poor appetite at home IV fluids Monitor BMP encourage oral intake Skin rash generalized rash likely allergic Start Benadryl and Famotidine Steroids if needed Toxic metabolic encephalopathy likely a result of FÁTIMA, possible underlying dementia treat Infx recurrent orientation Fall no injury PT consult Asthma mild intermit no exacerbation continue albuterol as needed hyppothyroidism continue levothyroxine GERD PPI DVT prophylaxis with heparin Full code patient will need overnights stay for tx of FÁTIMA, encephalopathy requiring IV fluids and close monitoring pending safe DC plan Quality Stroke Does the patient have a stroke diagnosis?: No VTE Prior VTE?: No VTE Risk Level:: Medical - moderate - high VTE Device Contraindication: Treatment Not Indicated VTE Drug Contraindication: N/A - Med Ordered
[2023-10-30] MEDS: diphenhydrAMINE HCL 50 MG/ML VIAL 12.5 MG IVPUSH (11:17)
[2023-10-30] MEDS: Famotidine 20 MG TABLET PO ×2 (12:13→20:33)
[2023-10-30] MEDS: QUEtiapine Fumarate 25 MG TABLET PO (13:33)
--- NOTE | 2023-10-30 13:51 | MHC.CM.PN ---
THIS CM SPOKE WITH HCP/GRANDSON ACOSTA VIA TELEPHONE AT [phone]. IMM VERBALLY DELIVERED, COPY TO BE MAILED. PER ACOSTA PATIENT LIVES ALONE WITH CHART COLLECTOR SERVICES, THOUGH PRIMARY CHART COLLECTOR B[employer] IS AT PATIENT'S HOUSE MOST TIMES, EVEN WHEN NOT ON DUTY. CHART COLLECTOR SERVICES ARE THROUGH [facility] AND PAID FOR BY [facility]. AMBULATES INDEPENDENTLY MOST TIMES, BUT USES WALKER PRN. ACOSTA STATES PATIENT HAS BEEN INCREASINGLY CONFUSED OVER THE LAST FEW MONTHS AND ISN'T SURE HOW LONG SHE WILL BE ABLE TO LIVE ON HER OWN. SPOKE WITH ZOE CARROLL, WHO ALSO REPORTS FREQUENT CONFUSION. AWARE. DP: PT RECOMMENDING STR. BED OFFER FROM [facility]. PENDING AUTH. CM WILL CONTINUE TO FOLLOW.
[2023-10-30 16:00] VITALS: BP 154/50; PULSE 77; RESP 18; TEMP 36.9; O2SAT 98
[2023-10-30 23:42] VITALS: BP 119/56; PULSE 83; RESP 18; TEMP 36.9; O2SAT 95
[2023-10-31] MEDS: 0.9 % Sodium Chloride 1,000 ML 75 ML IVCONT (02:12)
[2023-10-31] MEDS: Heparin Sodium,Porcine 5,000 UNIT/ML VIAL 5000 UNIT SUBCUT (03:52)
[2023-10-31] MEDS: Levothyroxine Sodium 75 MCG TABLET PO (05:47)
[2023-10-31] MEDS: Omeprazole 20 MG CAPSULE.DR PO (05:47)
[2023-10-31 07:20] VITALS: BP 129/62; PULSE 83; RESP 16; TEMP 37.7; O2SAT 95
[2023-10-31] MEDS: Sucralfate Oral Suspension 1 GM/10 ML ORAL.SUSP PO (08:32)
[2023-10-31] MEDS: 0.9 % Sodium Chloride Flush 3 ML SYRINGE IVFLUSH (08:32)
[2023-10-31] MEDS: Famotidine 20 MG TABLET PO (08:32)
[2023-10-31 10:35] VITALS: BP 129/62; PULSE 83; O2SAT 95
--- NOTE | 2023-10-31 10:43 | MHC.CM.PN ---
PER MD ROUNDS PT MEDICALLY CLEARED FOR DC. [facility] HAS AUTH AND CAN OFFER A BED TODAY. BLS TRANSPORTATION BOOKED FOR NOON. RN, PATIENT, HCP/GRANDSON, TEARER AND FACILITY AWARE.
--- NOTE | 2023-10-31 10:46 | P.DS_ITS ---
DS: Providers Provider Date of Service: 10/31/23 Date of admission: 10/29/23 15:57 Primary care physician: Dee Dee Flood MD DS: Diagnosis Discharge Diagnosis (1) FÁTIMA (acute kidney injury): Status: Acute (2) Fall: Status: Acute (3) Allergic reaction: Status: Acute (4) Failure to thrive in adult: Status: Acute DS: Summary Hospital Course Hospital Course: Admission note HPI 83 yo female from home hx of anxiety, chronic intermittent dizziness, breast cancer s/p L mastectomy, colitis, GIB, hypothyroidism and mild cognitive impair ment.This morning she was getting up to the commode and fell. Her HEAD BAGGAGE PORTER heard the fall and was quickly by her side. Patient denied any loss of consciousness, chest pain, shortness of breath. she has a history of stomach problems and does not like to eat much food although her HEAD BAGGAGE PORTER does encourage her to and drink. According to the HEAD BAGGAGE PORTER the patient has not felt well over the last 3 days and has not been eating and drinking. In the ER, due to the full there was a head CT and cervical spine CT which were both negative for any acute abnormalities patient is noted to have an elevated creatinine of 2.51, no fever, very mild leukocytosis, negative urinalysis. Patient was given a dose of Pepcid, Solu- Medrol, Benadryl, 1 L of IV fluid. She will be admitted for further management and treatment of FÁTIMA. Hospital course # FÁTIMA On presentation with Cr of 2.5 that improved to baseline of 1.2 secondary to dehydration from chronically poor appetite at home. Treated with IV fluids with good response. encourage oral intake with goal of 1.5-2L of fluids daily to be scheduled. # Skin rash generalized rash likely allergic in nature. Improved significantly with usage of Benadryl and Famotidine which will be resumed at time of discharge. # Toxic metabolic encephalopathy likely a result of FÁTIMA, possible underlying undiagnosed dementia. Improved with recurrent reorientation and treatment of kidney function. Seroquel was started PRN for restlessness and anxiety with good result. to be used PRN. # Fall no injury after falling at home. PT recommended STR. will be discharged to nursing facility. Increase fluid intake. Keep a schedule with goal of 1.5-2L fluids daily Take Benadryl and Famotidine to help with rash Seroquel as needed for increase agitation Follow with PCP after physical rehab Time Attestation Discharge coordination time: Greater than 30 minutes Quality: Safe Use of Opioids Does Pt have an Active Cancer Diagnosis on the Problem List?: No Quality: Stroke Does the patient have a stroke diagnosis?: No Physical Exam Vital Signs: Vital Signs: Last Vital Signs Temp 99.9 F 10/31/23 07:20 Pulse 83 10/31/23 10:35 Resp 16 10/31/23 07:20 BP 129/62 10/31/23 10:35 Pulse Ox 95 10/31/23 10:35 O2 Del Method Room Air 10/31/23 07:20 BMI result Body Mass Index 26.6 Const: Other: Constitutional : Awake, interactive, frail, not in distress Neck : Normal inspection, Supple Cardiovascular : RRR, no JVP, no lower extremity edema Respiratory : good bilateral air entry, no crackles, wheezes or rhonchi Gastrointestinal: soft, lax, Normal bowel sounds Skin : Warm, Dry, generalized macular rash on the trunk and extremities Neurological : Alert & oriented to self and place, No focal deficit but overall confused DS: Data Data Completed and Pending Completed studies during hospitalization [Text1]: Procedures Excision of Rectum, Via Natural or Artificial Opening Endoscopic, Diagnostic (11/05/20) Labs on day of discharge: Laboratory Results - last 24 hr 10/31/23 05:46 Hold Purple Top SEE NOTE TSH 10.40 H Imaging Chest x-ray: Radiologist's impression: ITS Impressions Cervical Spine CT 10/29/23 10:49 IMPRESSION: No acute intracranial process seen. There is no acute fracture, dislocation or subluxation. Head CT 10/29/23 10:49 IMPRESSION: No acute intracranial process seen. There is no acute fracture, dislocation or subluxation. Discharge Plan Discharge Anticipated Discharge Date/Time: 10/31/23 10:26 Patient Disposition: Xfer SNF Discharge Diagnosis: Acute kidney injury Altered mentation skin Rash Referrals: [facility] [Outside] - 1 Day (Short term rehab) Dee Dee Rueda MD [Primary Care Provider] - 1 Week Discharge Medications: New Ensure Original Liquid 1 ea PO BID Qty: 1422 3RF diphenhydramine HCl 25 mg Capsule 25 mg PO Q6H PRN (Reason: Allergic Reaction) Qty: 15 0RF famotidine 20 mg Tablet 20 mg PO DAILY Qty: 20 0RF quetiapine 25 mg Tablet 25 mg PO DAILY@1700 PRN (Reason: Anxiety/Restlessness) Qty: 20 0RF polyethylene glycol 3350 [Miralax] 17 gram powder in packet 17 g PO DAILY Qty: 30 0RF Rx Instructions: Hold for diarrhea Continued acetaminophen [Athenol] 325 mg tablet 650 mg PO Q6H PRN (Reason: fever or pain) Qty: 30 0RF meclizine 25 mg tablet 25 mg PO TID PRN (Reason: dizziness) Qty: 14 0RF docusate sodium 100 mg capsule 100 mg PO BID PRN (Reason: Constipation) albuterol sulfate 90 mcg/actuation HFA aerosol inhaler 2 puff inhalation Q4-6H PRN (Reason: shortness of breath or wheezing) Qty: 8.5 0RF levothyroxine 75 mcg tablet 75 mcg PO DAILY lansoprazole 30 mg capsule,delayed release(DR/EC) 30 mg PO DAILY Qty: 90 2RF sucralfate [Carafate] 100 mg/mL suspension 10 ml PO BID Qty: 420 2RF Discharge Orders: Discharge Order (Routine); Ordered 10/31/23 Ordered By: Colby Lewis Diet: Advance to usual diet Activity on Discharge: As tolerated Stand Alone Forms: Patient Portal Discharge page Care Plan Goals: Read below Health Concerns: Read below Plan of Treatment: Read below Assessment: You were admitted for treatment of kidney injury and rash that responded well to IV fluids and allergy medications. Increase fluid intake. Keep a schedule with goal of 1.5-2L fluids daily Take Benadryl and Famotidine to help with rash Seroquel as needed for increase agitation Follow with PCP after physical rehab
[2023-10-31] MEDS: diphenhydrAMINE HCL 25 MG CAPSULE PO (11:58)
[2023-10-31] MEDS: polyethylene glycoL 3350 17 GM POWD.PACK PO (11:58)
== END 2023-10-31 12:55 | disposition skilled nursing facility (03) | DRG 640 ==
LOC: HO.ED 12:57 → HO.EDOVER 16:31 → HO.S3 16:39
PROVIDERS: Admitting Provider Nurse Practitioner Acute Care; Emergency Provider Emergency Medicine; PCP Internal Medicine; Visit Provider Student in an Organized Health Care Education/Training Program
DX: E86.0 Dehydration (principal); G92.8 Other toxic encephalopathy; N17.9 Acute kidney failure, unspecified; R21 Rash and other nonspecific skin eruption; W19.XXXA Unspecified fall, initial encounter; E03.9 Hypothyroidism, unspecified; F03.90 Unspecified dementia, unspecified severity, without behavioral disturbance, psychotic disturbance, mood disturbance, and anxiety; K21.9 Gastro-esophageal reflux disease without esophagitis; J45.20 Mild intermittent asthma, uncomplicated; Z85.3 Personal history of malignant neoplasm of breast; Z90.12 Acquired absence of left breast and nipple; Z79.890 Hormone replacement therapy; Z79.899 Other long term (current) drug therapy
CPT/HCPCS: 36415; 70450; 72125; 80048; 80076; 81001; 82550; 82947; 83735; 84443; 84484; 85025; 85027; 85610; 93005; 97162; 99285; J1200; J1644; J2930

== ENCOUNTER → 2023-10-29 15:57 | Outpatient (BNV) | payer OTHER, SELFPAY | PROVIDERS: Admitting Provider Nurse Practitioner Acute Care; Emergency Provider Emergency Medicine; PCP Internal Medicine; Visit Provider Student in an Organized Health Care Education/Training Program | DX: N17.9 Acute kidney failure, unspecified (principal); W19.XXXA Unspecified fall, initial encounter; R21 Rash and other nonspecific skin eruption; R62.7 Adult failure to thrive | CPT/HCPCS: 99223; 99232; 99239 ==

== ENCOUNTER 2023-11-18 11:57 | Outpatient (REF) | payer OTHER, SELFPAY ==
[2023-11-18 14:20] LABS: Anion Gap 13 (12-20); Blood Urea Nitrogen 24 mg/dL (9-16); Calcium 9.9 mg/dL (8.4-10.2); Carbon Dioxide 26 mmol/L (22-29); Chloride 106 mmol/L (96-108); Estimated Glomerular Filt Rate 55; Glucose Random 94 mg/dL (60-115); Potassium 4.4 mmol/L (3.3-5.1); Sodium 141 mmol/L (135-145)
[2023-11-18 14:26] LABS: TSH reflex Free T4 2.33 uIU/mL (0.32-4.0)
== END 2023-11-18 11:58 | disposition home or self-care (01) ==
LOC: HO.HHCL 11:57
PROVIDERS: Visit Provider Internal Medicine
DX: E03.9 Hypothyroidism, unspecified (principal); E04.1 Nontoxic single thyroid nodule; N17.9 Acute kidney failure, unspecified
CPT/HCPCS: 36415; 80048; 84443

== ENCOUNTER 2023-12-23 12:38 | Outpatient (REF) | payer OTHER, SELFPAY ==
--- NOTE | ~2023-12-23 | US_ITS ---
EXAMINATION: US THYROID CLINICAL INFORMATION: Nodule noted on physical exam located in the upper left area. COMPARISON: Ultrasound soft tissue head/neck thyroid dated 04/18/2006. TECHNIQUE: Linear transducer grayscale and color Doppler examination with attention to the region of the thyroid. FINDINGS: SIZE: Measurements of the thyroid lobes and nodules are given in sagittal, anteroposterior and transverse dimensions respectively. Right Thyroid Lobe: 4.4 x 1.9 x 1.3 cm, volume 5.7 mL. Previously 3.82 x 1.55 cm (SAG x AP). Parenchyma: The gland echotexture is heterogeneous. Thyroid vascularity is normal. Left Thyroid Lobe: 3.8 x 1.4 x 1.3 cm, volume 3.5 mL. Previously 4.38 x 0.96 cm (SAG x AP). Parenchyma: The gland echotexture is heterogeneous. Thyroid vascularity is normal. Isthmus: 0.4 cm in maximum AP dimension. Previously not documented. No focal thyroid nodule is seen. NODES: No lymphadenopathy is seen in the tissue surrounding the thyroid gland. US/US thyroid IMPRESSION: No significant thyroid nodule. No FNA or follow up. ACR TI-RADS RECOMMENDATION REFERENCE: Ultrasound-guided fine-needle aspiration, follow up ultrasound, no further followup. * TR1 (0 point) and TR2 (2 points): No FNA or followup * TR3 (3 points): FNA if more than or equal to 2.5 cm in maximum dimension, follow up ultrasound in 1, 3 and 5 years if 1.5 to 2.4 cm in maximum dimension. * TR4 (4-6 points): FNA if more than or equal to 1.5 cm in maximum dimension, follow up ultrasound in 1, 2, 3 and 5 years if 1 to 1.4 cm in maximum dimension. * TR5 (more than or equal to 7 points): FNA if more than or equal to 1 cm in maximum dimension, follow up ultrasound every year for 5 years if 0.5 to 0.9 cm in maximum dimension. * TR3, TR4 or TR5 nodules that are below the size threshold for follow up receive no followup.
== END 2023-12-23 12:39 | disposition home or self-care (01) ==
LOC: HO.US 12:38
PROVIDERS: PCP Internal Medicine; Visit Provider Internal Medicine
DX: E04.1 Nontoxic single thyroid nodule (principal)
CPT/HCPCS: 76536

== ENCOUNTER 2024-02-24 01:03 | Emergency (ER) | payer OTHER, SELFPAY ==
[2024-02-24 01:07] VITALS: BP 140/90; PULSE 73; O2SAT 98
[2024-02-24 01:13] VITALS: BP 137/70; PULSE 66; RESP 18; TEMP 36.6; O2SAT 96; BMI 23.3
[2024-02-24 04:25] VITALS: BP 133/73; PULSE 99; RESP 12; TEMP 36.6; O2SAT 98
--- NOTE | 2024-02-24 05:45 | ED_ITS ---
HPI - General Adult General Chief complaint: General Medical Stated complaint: Trembing legs Time Seen by Provider: 02/24/24 05:45 History of Present Illness HPI narrative: The patient is an 84-year-old woman called an ambulance tonight because of intermittent cramping in her lower legs. She says that this problem bothers her from time to time and she finds it frustrating. The cramps do not last long but are unpleasant. She called an ambulance because of the cramps tonight. Paramedics state that when they arrived the patient was standing at the front door of the apartment complex and she ambulated to the door with no difficulty at all. She denies fever, sweats, chills. No headache, no chest pain, no nausea or vomiting, no abdominal pain, no cough or sputum, no shortness of breath. No history of diabetes. No history of smoking Related Data Home Medications Medication Instructions Recorded Confirmed levothyroxine 75 mcg tablet 75 mcg PO DAILY 06/21/23 10/29/23 docusate sodium 100 mg capsule 100 mg PO BID PRN Constipation 10/29/23 10/29/23 Previous Rx's Medication Instructions Recorded acetaminophen 325 mg tablet 650 mg (2 x 325 mg) PO Q6H PRN 09/27/20 (Athenol) fever or pain #30 tabs meclizine 25 mg tablet 25 mg PO TID PRN dizziness #14 tabs 02/24/23 albuterol sulfate 90 mcg/actuation 2 puff inhalation Q4-6H PRN 03/22/23 aerosol inhaler shortness of breath or wheezing #8.5 grams lansoprazole 30 mg capsule,delayed 30 mg PO DAILY #90 caps 09/16/23 release sucralfate 100 mg/mL oral 10 ml PO BID #420 mL 09/16/23 suspension (Carafate) food supplemt, lactose-reduced 1 ea PO BID #1,422 mL 10/29/23 (Ensure Original oral liquid) diphenhydramine HCl 25 mg capsule 25 mg PO Q6H PRN Allergic Reaction 10/31/23 #15 caps famotidine 20 mg tablet 20 mg PO DAILY #20 tabs 10/31/23 polyethylene glycol 3350 17 gram 17 g PO DAILY #30 ea 10/31/23 oral powder packet (Miralax) quetiapine 25 mg tablet 25 mg PO DAILY@1700 PRN 10/31/23 Anxiety/Restlessness #20 tabs Allergies Allergy/AdvReac Type Severity Reaction Status Date / Time azithromycin [From ZITHROMAX] Allergy Severe GENERIC Verified 10/29/23 09:46 ONLY-SEVERE ABD PAIN, abdominal pain codeine [CODEINE] Allergy Intermediate NAUSEA & Verified 10/29/23 09:46 VOMITING,FAINTED, nausea, vomiting, syncope erythromycin base Allergy Intermediate HIVES, ABD Verified 10/29/23 09:46 [ERYTHROMYCIN BASE] PAIN promethazine [From PHENERGAN] Allergy Intermediate DIZZY / Verified 10/29/23 09:46 NAUSEATED amoxicillin [Prevpac] Allergy Unknown Unknown Verified 10/29/23 09:46 clarithromycin [Prevpac] Allergy Unknown Unknown Verified 10/29/23 09:46 Review of Systems 2 Review of Systems: Yes all other systems are reviewed and are negative PMFSH Past Medical History Medical History Hematuria of unknown cause Hx of breast cancer Hypothyroid Arthritis History of anemia History of colitis Dysphagia Weight loss, unintentional GI bleed Hx of syncope Bright red blood per rectum Constipation GERD (gastroesophageal reflux disease) Anxiety Surgical History History of esophagogastroduodenoscopy (EGD) Hx of colonoscopy H/O left mastectomy History of ankle surgery Family History Family History Father No problems noted. 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 have visiting nurse or other home services: Yes Alcohol intake: never Patient Tobacco Use Status: Never used Tobacco Advance Directives: Yes Advance Directives on File: Yes Advance Directives Date on File: 10/20/20 service: No Current occupational status: retired Physical Exam ED Vital Signs: Vital Signs - 24 hr 02/24/24 01:13 02/24/24 04:25 02/24/24 06:36 Temperature 97.8 F 97.9 F 98.0 F Pulse Rate 66 99 57 Respiratory Rate 18 12 16 Blood Pressure 137/70 133/73 168/75 H Pulse Oximetry 96 98 99 Oxygen Delivery Method Room Air Room Air Room Air BMI result Body Mass Index 23.3 Const Other: The patient is an 84-year-old woman who looks somewhat chronically ill. She is awake and alert. She has a very cheerful demeanor. She does not appear acutely ill in any way. HENMT Other: Face is symmetrical. Mucous membranes are moist. Eyes Other: Pupils are small round equal, conjunctivae are clear, extraocular movements intact Neck Other: No JVD Resp Effort & Inspection: normal respiratory effort Auscultation: clear to auscultation bilaterally Cardio Rate: regular rate Rhythm: regular rhythm Heart sounds: S1 normal heart sound present and S2 normal heart sound present GI Other: Abdomen is soft and nontender Skin Other: The skin is dry and unremarkable. She has some venous stasis skin changes in the lower legs and feet Neuro Other: The patient is awake and alert. Face is symmetrical. Speech is clear. She moves all extremities symmetrically. Coordination is normal. She has a slightly vague affect but is generally neurologically intact. Extrem Other: No calf swelling or tenderness. No significant lower extremity edema. Calves are nontender. Calves are symmetrical. She has a lot of chronic venous stasis skin changes to her feet but she has excellent dorsalis pedis pulses bilaterally. Medical Decision Making Medical Decision Making MDM Narrative: The patient is a very pleasant 84-year-old who is here because she was experiencing cramps in her lower legs. Perhaps she is having episodes of restless legs syndrome. Her CBC is entirely normal. Metabolic panel shows a creatinine of 0.94 with a BUN of 22 and normal electrolytes. Her function is actually somewhat better than it has been in the past. Her GFR is 57. The patient was observed. She did not seem to have any recurrence of her symptoms of leg cramps. She was eager for discharge. She should follow up with her PCP. Lab Data 02/24/24 06:35 02/24/24 06:35 Labs: Lab Results 02/24/24 Range/Units 06:35 WBC 6.1 (4.8-10.8) X10*3/uL RBC 4.55 (4.20-5.50) X10*6/uL Hgb 12.9 (12.0-16.0) g/dl Hct 39.2 (37.0-47.0) % MCV 86.2 (80.0-98.0) fL MCH 28.4 (27.0-33.0) pg MCHC 32.9 (31.0-35.0) g/dl RDW 14.6 (11.0-16.0) % Plt Count 191 (160-400) X10*3/uL MPV 9.4 (9.4-12.3) fL Immature Gran % (Auto) 0.2 (0.0-0.4) % Neut % (Auto) 55.6 (45-73) % Lymph % (Auto) 34.1 (20-40) % Burnett % (Auto) 7.6 (2-11) % Eos % (Auto) 2.0 (0-4) % Baso % (Auto) 0.5 (0-2) % Lymph # (Auto) 2.1 (1.2-4.9) X10*3/uL Burnett # (Auto) 0.5 (0.1-1.2) X10*3/uL Eos # (Auto) 0.1 (0.0-0.4) X10*3/uL Baso # (Auto) 0.0 (0.0-0.2) X10*3/uL Abs Immat Gran (auto) 0.01 (0.00-0.03) X10*3/uL Absolute Neuts (auto) 3.4 (2.0-8.3) x10*3/uL Absolute Nucleated RBC 0.000 (0.0-0.012) X10*3/uL Nucleated RBC % (auto) 0.0 (0.0-0.2) /100WBC Sodium 141 (135-145) mmol/L Potassium 4.9 (3.3-5.1) mmol/L Chloride 106 (96-108) mmol/L Carbon Dioxide 27 (22-29) mmol/L Anion Gap 13 (12-20) BUN 22 H (9-16) mg/dL Creatinine 0.94 (0.5-1.4) mg/dL Estim Creat Clear Calc 39.1 Estimated GFR 57 Random Glucose 92 (60-115) mg/dL Calcium 10.1 (8.4-10.2) mg/dL Magnesium 2.2 (1.6-2.6) mg/dL Total Bilirubin 0.3 (0.0-1.0) mg/dL Direct Bilirubin 0.1 (0.0-0.5) mg/dL AST 20 (5-31) U/L ALT 16 (0-31) U/L Alkaline Phosphatase 69 (39-117) U/L Total Protein 7.6 (6.5-8.0) g/dL Albumin 4.1 (3.5-5.0) g/dL Discharge Plan Discharge Clinical Impression: Bilateral leg cramps Patient Disposition: Home, Self-Care Additional Instructions: Your testing in the emergency room today is very reassuring. Please follow up with your regular doctor to discuss these symptoms further. Return to the emergency room if worse. Prescriptions: No Action acetaminophen [Athenol] 325 mg tablet 650 mg PO Q6H PRN (Reason: fever or pain) Qty: 30 0RF meclizine 25 mg tablet 25 mg PO TID PRN (Reason: dizziness) Qty: 14 0RF Ensure Original Liquid 1 ea PO BID Qty: 1422 3RF docusate sodium 100 mg capsule 100 mg PO BID PRN (Reason: Constipation) diphenhydramine HCl 25 mg Capsule 25 mg PO Q6H PRN (Reason: Allergic Reaction) Qty: 15 0RF famotidine 20 mg Tablet 20 mg PO DAILY Qty: 20 0RF quetiapine 25 mg Tablet 25 mg PO DAILY@1700 PRN (Reason: Anxiety/Restlessness) Qty: 20 0RF polyethylene glycol 3350 [Miralax] 17 gram powder in packet 17 g PO DAILY Qty: 30 0RF Rx Instructions: Hold for diarrhea albuterol sulfate 90 mcg/actuation HFA aerosol inhaler 2 puff inhalation Q4-6H PRN (Reason: shortness of breath or wheezing) Qty: 8.5 0RF levothyroxine 75 mcg tablet 75 mcg PO DAILY lansoprazole 30 mg capsule,delayed release(DR/EC) 30 mg PO DAILY Qty: 90 2RF sucralfate [Carafate] 100 mg/mL suspension 10 ml PO BID Qty: 420 2RF Referrals: [facility] [Provider Group] (Bilateral lower leg cramps)
--- NOTE | 2024-02-24 05:59 | ECG_ITS ---
Test Reason : WEAKNESS Blood Pressure : / mmHG Vent. 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
[2024-02-24 06:36] VITALS: BP 168/75; PULSE 57; RESP 16; TEMP 36.7; O2SAT 99
[2024-02-24 06:48] LABS: MANUAL DIFF FLAG NO
[2024-02-24 06:51] LABS: Basophils Percent Auto 0.5 % (0-2); Eosinophils Absolute Auto 0.1 X10*3/uL (0.0-0.4); Hematocrit 39.2 % (37.0-47.0); Hemoglobin 12.9 g/dl (12.0-16.0); Imm Gran Abs Auto 0.01 X10*3/uL (0.00-0.03); Imm Gran Pct Auto 0.2 % (0.0-0.4); Lymphocytes Absolute Auto 2.1 X10*3/uL (1.2-4.9); Lymphocytes Percent Auto 34.1 % (20-40); Mean Corpuscular HGB Conc 32.9 g/dl (31.0-35.0); Mean Corpuscular Hemoglobin 28.4 pg (27.0-33.0); Mean Corpuscular Volume 86.2 fL (80.0-98.0); Mean Platelet Volume 9.4 fL (9.4-12.3); Monocytes Absolute Auto 0.5 X10*3/uL (0.1-1.2); Monocytes Percent Auto 7.6 % (2-11); Neutrophils Absolute Auto 3.4 x10*3/uL (2.0-8.3); Neutrophils Percent Auto 55.6 % (45-73); Platelet Count 191 X10*3/uL (160-400); Red Blood Count 4.55 X10*6/uL (4.20-5.50); Red Cell Distribution Width 14.6 % (11.0-16.0); White Blood Count 6.1 X10*3/uL (4.8-10.8)
[2024-02-24 07:08] LABS: Alanine Aminotransferase 16 U/L (0-31); Albumin Level 4.1 g/dL (3.5-5.0); Alkaline Phosphatase 69 U/L (39-117); Anion Gap 13 (12-20); Aspartate Amino Transferase 20 U/L (5-31); Bilirubin Direct 0.1 mg/dL (0.0-0.5); Bilirubin Total 0.3 mg/dL (0.0-1.0); Blood Urea Nitrogen 22 mg/dL (9-16); Calcium 10.1 mg/dL (8.4-10.2); Carbon Dioxide 27 mmol/L (22-29); Chloride 106 mmol/L (96-108); Creatinine Clr Calc Pharmacy 39.1; Estimated Glomerular Filt Rate 57; Glucose Random 92 mg/dL (60-115); Magnesium 2.2 mg/dL (1.6-2.6); Potassium 4.9 mmol/L (3.3-5.1); Sodium 141 mmol/L (135-145); Total Protein 7.6 g/dL (6.5-8.0)
[2024-02-24 08:00] VITALS: BP 168/75; PULSE 57; RESP 16; TEMP 36.6; O2SAT 99
== END 2024-02-24 08:01 | disposition home or self-care (01) ==
PROVIDERS: Emergency Provider Emergency Medicine
DX: R25.2 Cramp and spasm (principal)
CPT/HCPCS: 36415; 80048; 80076; 83735; 85025; 93005; 99283; 99284

== ENCOUNTER → 2024-02-24 05:59 | Outpatient (BNV) | payer OTHER, SELFPAY | PROVIDERS: Emergency Provider Emergency Medicine; Visit Provider Internal Medicine Cardiovascular Disease | DX: R94.31 Abnormal electrocardiogram [ECG] [EKG] (principal) | CPT/HCPCS: 93010 ==

== ENCOUNTER 2024-02-24 08:59 | Emergency (ER) | payer OTHER, SELFPAY ==
[2024-02-24] VITALS (7 sets, daily range): BP systolic 130–154; BP diastolic 64–92; PULSE 60–78; RESP 14–18; TEMP 36.6–36.9; O2SAT 98; BMI 23.0
--- NOTE | ~2024-02-24 | CT_ITS ---
EXAMINATION: CT HEAD WITHOUT CONTRAST CLINICAL INFORMATION: Fall COMPARISON: CT head from 10/29/2023 TECHNIQUE: Contiguous axial imaging was performed from the skull base to vertex without intravenous administration of contrast. This CT examination was performed using dose optimization techniques as appropriate, variously including the following: *Automated exposure control *Adjustment of mA and/or kV according to patient size (this includes techniques or standardized protocols for targeted exams where dose is matched to indication/reason for exam; i.e. extremities or head) *Use of iterative reconstruction technique DLP: 560 mGy-cm FINDINGS: There is no evidence of acute intracranial hemorrhage or territorial infarction. Chronic white matter small vessel ischemic changes mild cerebral atrophy with commensurate ventricular changes. No abnormal mass effect or midline shift is seen. French to white matter differentiation is well preserved. No extra-axial fluid collections are identified. The ventricles are normal in size. There is no abnormal attenuation within the brain parenchyma. The osseous structures and soft tissues are normal. The mastoid air cells and visualized portions of the paranasal sinuses are well aerated. CT/CT head/brain wo IV con IMPRESSION: 1. No acute intracranial pathology. 2. Chronic white matter small vessel ischemic changes.
--- NOTE | ~2024-02-24 | XR_ITS ---
EXAMINATION: XR KNEE, LEFT CLINICAL INFORMATION: Fall COMPARISON: None available. TECHNIQUE: Four views of the left knee. FINDINGS: No acute visible fracture or dislocation. Multicompartment arthritic changes. Enthesopathy at the quadriceps tendon insertion site. Joint space alignment otherwise maintained. No large knee joint effusion. Soft tissues are unremarkable. XR/XR knee LT 4V IMPRESSION: 1. No acute visible fracture or dislocation. 2. Multicompartment arthritic changes. 3. Enthesopathy at the quadriceps tendon insertion site.
--- NOTE | 2024-02-24 09:08 | ECG_ITS ---
Test Reason : FALL Blood Pressure : / mmHG Vent. Rate : 063 BPM Atrial Rate : 000 BPM P-R Int : 000 ms QRS Dur : 084 ms QT Int : 418 ms P-R-T Axes : 000 -04 035 degrees QTc Int : 427 ms Normal sinus rhythm Moderate voltage criteria for LVH, may be normal variant ( R in aVL , Sokolow-Horowitz ) Septal infarct (cited on or before 13-JUN-2023) Abnormal ECG When compared with ECG of 24-FEB-2024 06:24, No significant changes seen Referred By: Arely Love Electronically Signed By:Ovidio Roy
--- NOTE | 2024-02-24 09:23 | ED_ITS ---
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 She tried to walk home bystanders saw her trip and fall - she reports some dizziness before. She hurt her left knee on the ground. No LOC. She did not strike head. She was shaking after but no LOC reported. She is confused at her baseline. She is hungry and wants to eat. MD complaint: fall Onset (ago): minute(s) (prior to arrival ) Fall from: standing Fall witnessed: yes, by bystander Place fall occurred: street Loss of consciousness: none Prolonged down time: no Symptoms prior to fall: none Context: tripped/slipped Location of injury - extremities: left: knee Severity: moderate Quality: dull and aching Associated symptoms (after fall): other (she feels dizzy and unable to walk) Related Data Home Medications Medication Instructions Recorded Confirmed levothyroxine 75 mcg tablet 75 mcg PO DAILY 06/21/23 10/29/23 docusate sodium 100 mg capsule 100 mg PO BID PRN Constipation 10/29/23 10/29/23 Previous Rx's Medication Instructions Recorded acetaminophen 325 mg tablet 650 mg (2 x 325 mg) PO Q6H PRN 09/27/20 (Athenol) fever or pain #30 tabs meclizine 25 mg tablet 25 mg PO TID PRN dizziness #14 tabs 02/24/23 albuterol sulfate 90 mcg/actuation 2 puff inhalation Q4-6H PRN 03/22/23 aerosol inhaler shortness of breath or wheezing #8.5 grams lansoprazole 30 mg capsule,delayed 30 mg PO DAILY #90 caps 09/16/23 release sucralfate 100 mg/mL oral 10 ml PO BID #420 mL 09/16/23 suspension (Carafate) food supplemt, lactose-reduced 1 ea PO BID #1,422 mL 10/29/23 (Ensure Original oral liquid) diphenhydramine HCl 25 mg capsule 25 mg PO Q6H PRN Allergic Reaction 10/31/23 #15 caps famotidine 20 mg tablet 20 mg PO DAILY #20 tabs 10/31/23 polyethylene glycol 3350 17 gram 17 g PO DAILY #30 ea 10/31/23 oral powder packet (Miralax) quetiapine 25 mg tablet 25 mg PO DAILY@1700 PRN 10/31/23 Anxiety/Restlessness #20 tabs Allergies Allergy/AdvReac Type Severity Reaction Status Date / Time azithromycin [From ZITHROMAX] Allergy Severe GENERIC Verified 10/29/23 09:46 ONLY-SEVERE ABD PAIN, abdominal pain codeine [CODEINE] Allergy Intermediate NAUSEA & Verified 10/29/23 09:46 VOMITING,FAINTED, nausea, vomiting, syncope erythromycin base Allergy Intermediate HIVES, ABD Verified 10/29/23 09:46 [ERYTHROMYCIN BASE] PAIN promethazine [From PHENERGAN] Allergy Intermediate DIZZY / Verified 10/29/23 09:46 NAUSEATED amoxicillin [Prevpac] Allergy Unknown Unknown Verified 10/29/23 09:46 clarithromycin [Prevpac] Allergy Unknown Unknown Verified 10/29/23 09:46 Review of Systems 2 Review of Systems: Constitutional : No Fever, No Chills ENT/Mouth : No Ear Pain, No Hoarseness, No sore throat Eyes: No Eye Pain, No Swelling, No Redness, No Foreign Body Cardiovascular : No Chest Pain, No SOB Respiratory : No Cough, No Dyspnea Gastrointestinal : No Nausea, No Vomiting, No Diarrhea, No abdominal Pain Genitourinary : No Dysuria, No Hematuria Musculoskeletal : positive joint pain, No Myalgias, No Joint Swelling Skin : No Skin lacerations, No rash Neuro : No Weakness, No Numbness, No Loss of Consciousness, pos Dizziness, No Headache Psych : No Anxiety/Panic, No Depression All other systems reviewed and are negative [facility] Past Medical History Attestation statement: The following information was validated with the patient. Source: old records reviewed Medical History Failure to thrive in adult Hematuria of unknown cause Hx of breast cancer Hypothyroid Arthritis History of anemia History of colitis Dysphagia Weight loss, unintentional GI bleed Hx of syncope Bright red blood per rectum Constipation GERD (gastroesophageal reflux disease) Anxiety Surgical History History of esophagogastroduodenoscopy (EGD) Hx of colonoscopy H/O left mastectomy History of ankle surgery Family History Family History Father No problems noted. 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 have visiting nurse or other home services: Yes Alcohol intake: never Patient Tobacco Use Status: Never used Tobacco Advance Directives: Yes Advance Directives on File: Yes Advance Directives Date on File: 10/20/20 service: No Current occupational status: retired Physical Exam 2 Vital Signs: Vital Signs: Last Vital Signs Temp 98.4 F 02/24/24 12:38 Pulse 60 02/24/24 12:38 Resp 14 02/24/24 12:38 BP 141/64 H 02/24/24 12:38 Pulse Ox 98 02/24/24 12:38 O2 Del Method Room Air 02/24/24 12:03 BMI result Body Mass Index 23.0 Appearance: Alert. Oriented X person and place. No acute distress. Eyes: Pupils equal, round and reactive to light. ENT: Pharynx normal. atraumatic Neck: Normal inspection. Neck supple. CVS: Normal heart rate and rhythm. Pulses normal. Respiratory: No respiratory distress. Breath sounds normal. Abdomen: Soft and nontender. Skin: Skin warm and dry. Normal skin color. Normal skin turgor. Extremities: No lower extremity edema. No calf ttp L knee contusion and superficial abrasion on patella Neuro: Oriented X 2. No motor deficit. No sensory deficit. Course Course Course Narrative: contact to VEGETABLE FARMWORKER Kristen -was not aware what was happening. Kaley is not supposed to leave the house alone. up and moving around at baseline, ate breakfast. Medical Decision Making Medical Decision Making MDM Narrative: 83 yo female from home hx of anxiety, chronic intermittent dizziness, breast cancer s/p L mastectomy, colitis, GIB, hypothyroidism, mild cognitive impairment here after trip and fall while walking no LOC did have shaking episide but no LOC and no injuries consistent with seizures. She has hx of frequent falls and prior orthostatic hypotension will repeat labs, obtain EKG, xray and CT scans for head/neck rule out given baseline confusion as well as feed her and involve CM for VEGETABLE FARMWORKER contact. Differential Diagnosis Differential Diagnoses: The differential diagnosis associated with the presentation includes falls, FTT, abrasions, orthostatic hypotension doubt seizure no facial trauma denies LOC Admission/Observation Consideration of admission/observation: Escalation of care including admission/observation considered at baseline per PCP never walks alone not suprising she fell Consult Healthcare Provider Management of the patient was discussed with: Adjunct Professor Of Law (case management) Lab Data [facility] Lab Attestation statement: I reviewed the patient's lab results. 02/24/24 09:53 02/24/24 09:53 Labs: Lab Results 02/24/24 Range/Units 09:53 WBC 6.6 (4.8-10.8) X10*3/uL RBC 4.59 (4.20-5.50) X10*6/uL Hgb 13.1 (12.0-16.0) g/dl Hct 39.3 (37.0-47.0) % MCV 85.6 (80.0-98.0) fL MCH 28.5 (27.0-33.0) pg MCHC 33.3 (31.0-35.0) g/dl RDW 14.6 (11.0-16.0) % Plt Count 193 (160-400) X10*3/uL MPV 9.6 (9.4-12.3) fL Immature Gran % (Auto) 0.3 (0.0-0.4) % Neut % (Auto) 62.4 (45-73) % Lymph % (Auto) 28.2 (20-40) % Isabella % (Auto) 7.7 (2-11) % Eos % (Auto) 1.1 (0-4) % Baso % (Auto) 0.3 (0-2) % Lymph # (Auto) 1.9 (1.2-4.9) X10*3/uL Isabella # (Auto) 0.5 (0.1-1.2) X10*3/uL Eos # (Auto) 0.1 (0.0-0.4) X10*3/uL Baso # (Auto) 0.0 (0.0-0.2) X10*3/uL Abs Immat Gran (auto) 0.02 (0.00-0.03) X10*3/uL Absolute Neuts (auto) 4.1 (2.0-8.3) x10*3/uL Absolute Nucleated RBC 0.000 (0.0-0.012) X10*3/uL Nucleated RBC % (auto) 0.0 (0.0-0.2) /100WBC Sodium 141 (135-145) mmol/L Potassium 3.9 D (3.3-5.1) mmol/L Chloride 109 H (96-108) mmol/L Carbon Dioxide 23 (22-29) mmol/L Anion Gap 13 (12-20) BUN 20 H (9-16) mg/dL Creatinine 0.90 (0.5-1.4) mg/dL Estim Creat Clear Calc 39.1 Estimated GFR 60 Random Glucose 95 (60-115) mg/dL Calcium 10.0 (8.4-10.2) mg/dL Magnesium 2.1 (1.6-2.6) mg/dL Total Bilirubin 0.3 (0.0-1.0) mg/dL Direct Bilirubin 0.1 (0.0-0.5) mg/dL AST 18 (5-31) U/L ALT 16 (0-31) U/L Alkaline Phosphatase 70 (39-117) U/L Total Protein 7.9 (6.5-8.0) g/dL Albumin 4.1 (3.5-5.0) g/dL Independent Interpretation I performed an independent interpretation of an: EKG, Plain X-Ray (no fracture) and CT Scan (no ICH) Interpretation: Rate: 63 Rhythm: NSR [place]: left Normal P waves. Normal KYLER. Normal QRS complex. ST T wave : no CIRILO, normal qTC: 427 prior studies: no acute ischemia The study has been interpreted contemporaneously by me. . Radiology Impression Discussion of test interpretation with radiology: I have reviewed the radiologist's reading. Independent Historian Clinical information obtained from an independent historian. History obtained from or confirmed by: EMS External Record Review External record reviewed: Inpatient record Discharge Plan Discharge Clinical Impression: Recurrent falls Abrasion of left leg Qualifiers: Encounter type: initial encounter Qualified Code(s): S80.812A - Abrasion, left lower leg, initial encounter Patient Disposition: Home, Self-Care Instructions: Abrasion (ED), Fall Prevention (ED) Additional Instructions: return for any worsening symptoms or concerns monitor abrasion for redness, swelling, yellow drainage Prescriptions: No Action acetaminophen [Athenol] 325 mg tablet 650 mg PO Q6H PRN (Reason: fever or pain) Qty: 30 0RF meclizine 25 mg tablet 25 mg PO TID PRN (Reason: dizziness) Qty: 14 0RF Ensure Original Liquid 1 ea PO BID Qty: 1422 3RF docusate sodium 100 mg capsule 100 mg PO BID PRN (Reason: Constipation) diphenhydramine HCl 25 mg Capsule 25 mg PO Q6H PRN (Reason: Allergic Reaction) Qty: 15 0RF famotidine 20 mg Tablet 20 mg PO DAILY Qty: 20 0RF quetiapine 25 mg Tablet 25 mg PO DAILY@1700 PRN (Reason: Anxiety/Restlessness) Qty: 20 0RF polyethylene glycol 3350 [Miralax] 17 gram powder in packet 17 g PO DAILY Qty: 30 0RF Rx Instructions: Hold for diarrhea albuterol sulfate 90 mcg/actuation HFA aerosol inhaler 2 puff inhalation Q4-6H PRN (Reason: shortness of breath or wheezing) Qty: 8.5 0RF levothyroxine 75 mcg tablet 75 mcg PO DAILY lansoprazole 30 mg capsule,delayed release(DR/EC) 30 mg PO DAILY Qty: 90 2RF sucralfate [Carafate] 100 mg/mL suspension 10 ml PO BID Qty: 420 2RF Interventions: ED Discharge Assessment Last Done: 02/24/24 12:38 Discharge Date/Time: 02/24/24 12:39 Print Language: Citizen [place]
[2024-02-24 10:00] LABS: MANUAL DIFF FLAG NO
[2024-02-24 10:02] LABS: Basophils Percent Auto 0.3 % (0-2); Eosinophils Absolute Auto 0.1 X10*3/uL (0.0-0.4); Eosinophils Percent Auto 1.1 % (0-4); Hematocrit 39.3 % (37.0-47.0); Hemoglobin 13.1 g/dl (12.0-16.0); Imm Gran Abs Auto 0.02 X10*3/uL (0.00-0.03); Imm Gran Pct Auto 0.3 % (0.0-0.4); Lymphocytes Absolute Auto 1.9 X10*3/uL (1.2-4.9); Lymphocytes Percent Auto 28.2 % (20-40); Mean Corpuscular HGB Conc 33.3 g/dl (31.0-35.0); Mean Corpuscular Hemoglobin 28.5 pg (27.0-33.0); Mean Corpuscular Volume 85.6 fL (80.0-98.0); Mean Platelet Volume 9.6 fL (9.4-12.3); Monocytes Absolute Auto 0.5 X10*3/uL (0.1-1.2); Monocytes Percent Auto 7.7 % (2-11); Neutrophils Absolute Auto 4.1 x10*3/uL (2.0-8.3); Neutrophils Percent Auto 62.4 % (45-73); Platelet Count 193 X10*3/uL (160-400); Red Blood Count 4.59 X10*6/uL (4.20-5.50); Red Cell Distribution Width 14.6 % (11.0-16.0); White Blood Count 6.6 X10*3/uL (4.8-10.8)
[2024-02-24 10:24] LABS: Alanine Aminotransferase 16 U/L (0-31); Albumin Level 4.1 g/dL (3.5-5.0); Alkaline Phosphatase 70 U/L (39-117); Anion Gap 13 (12-20); Aspartate Amino Transferase 18 U/L (5-31); Bilirubin Direct 0.1 mg/dL (0.0-0.5); Bilirubin Total 0.3 mg/dL (0.0-1.0); Blood Urea Nitrogen 20 mg/dL (9-16); Carbon Dioxide 23 mmol/L (22-29); Chloride 109 mmol/L (96-108); Creatinine Clr Calc Pharmacy 39.1; Estimated Glomerular Filt Rate 60; Glucose Random 95 mg/dL (60-115); Magnesium 2.1 mg/dL (1.6-2.6); Potassium 3.9 mmol/L (3.3-5.1); Sodium 141 mmol/L (135-145); Total Protein 7.9 g/dL (6.5-8.0)
== END 2024-02-24 12:39 | disposition home or self-care (01) ==
PROVIDERS: Emergency Provider Emergency Medicine
DX: S80.812A Abrasion, left lower leg, initial encounter (principal); R29.6 Repeated falls; R42 Dizziness and giddiness; W01.0XXA Fall on same level from slipping, tripping and stumbling without subsequent striking against object, initial encounter; Y93.9 Activity, unspecified; Y92.410 Unspecified street and highway as the place of occurrence of the external cause; Y99.9 Unspecified external cause status
CPT/HCPCS: 36415; 70450; 73564; 80048; 80076; 83735; 85025; 93005; 99283; 99284

== ENCOUNTER 2024-03-03 06:59 | Emergency (ER) | payer OTHER, SELFPAY ==
--- NOTE | 2024-03-03 | ECG_ITS ---
Test Reason : CP Blood Pressure : / mmHG Vent. Rate : 065 BPM Atrial Rate : 065 BPM P-R Int : 196 ms QRS Dur : 084 ms QT Int : 408 ms P-R-T Axes : 078 -07 050 degrees QTc Int : 424 ms Normal sinus rhythm Minimal voltage criteria for LVH, may be normal variant ( R in aVL ) Septal infarct (cited on or before 13-JUN-2023) Abnormal ECG When compared with ECG of 24-FEB-2024 09:21, No significant change was found Referred By: Generic ED Physician Electronically Signed By:SHAHRZAD PROCTOR MD
--- NOTE | ~2024-03-03 | XR_ITS ---
EXAMINATION: XR CHEST CLINICAL INFORMATION: Chest pain COMPARISON: Chest x-ray 03/25/2023 TECHNIQUE: 2 views of the chest were obtained. FINDINGS: The lungs are well-expanded and clear of acute pneumonic process. There is bilateral apical pleural thickening and apical scarring. The heart size and pulmonary vascularity is normal. No gross bony abnormality seen. XR/XR chest 2V IMPRESSION: Bilateral apical pleural thickening and apical scarring. No acute pneumonic process seen. No major change from previous exam 03/25/2023.
[2024-03-03 07:17] VITALS: BP 140/74; BP 144/71; PULSE 72; RESP 18; O2SAT 95; O2SAT 98; BMI 26.8
[2024-03-03 07:35] LABS: MANUAL DIFF FLAG NO
[2024-03-03 07:39] LABS: Basophils Percent Auto 0.4 % (0-2); Eosinophils Absolute Auto 0.1 X10*3/uL (0.0-0.4); Hematocrit 36.6 % (37.0-47.0); Hemoglobin 12.2 g/dl (12.0-16.0); Imm Gran Abs Auto 0.01 X10*3/uL (0.00-0.03); Imm Gran Pct Auto 0.2 % (0.0-0.4); Lymphocytes Absolute Auto 2.1 X10*3/uL (1.2-4.9); Lymphocytes Percent Auto 37.7 % (20-40); Mean Corpuscular HGB Conc 33.3 g/dl (31.0-35.0); Mean Corpuscular Hemoglobin 28.4 pg (27.0-33.0); Mean Corpuscular Volume 85.1 fL (80.0-98.0); Monocytes Absolute Auto 0.5 X10*3/uL (0.1-1.2); Monocytes Percent Auto 8.8 % (2-11); Neutrophils Absolute Auto 2.8 x10*3/uL (2.0-8.3); Neutrophils Percent Auto 50.9 % (45-73); Platelet Count 169 X10*3/uL (160-400); Red Cell Distribution Width 14.6 % (11.0-16.0); White Blood Count 5.4 X10*3/uL (4.8-10.8)
[2024-03-03 08:02] LABS: Troponin-I High Sensitivity 2.8 ng/L (<3.5-17.0)
--- NOTE | 2024-03-03 08:04 | ED.CHESTPAIN ---
HPI - Chest Pain General Chief Complaint: Chest Pain Stated Complaint: CP PER EMS Time Seen by Provider: 03/03/24 08:04 History of Present Illness HPI narrative: The patient is an 84-year-old female who lives in an elderly housing complex apartment. She says that at around 03:00 o'clock this morning she had pressure-like chest discomfort that was associated with mild shortness of breath. There was no nausea or vomiting. No sweats. The discomfort was mild and lasted about an hour. She currently is symptom free. Nevertheless she called an ambulance and was brought to the hospital for evaluation of the chest pain. She has had no fever, sweats, chills. No cough or sputum. No abdominal pain, nausea, vomiting. No pain or swelling in her legs. Related Data Home Medications Medication Instructions Recorded Confirmed levothyroxine 75 mcg tablet 75 mcg PO DAILY 06/21/23 10/29/23 docusate sodium 100 mg capsule 100 mg PO BID PRN Constipation 10/29/23 10/29/23 Previous Rx's Medication Instructions Recorded acetaminophen 325 mg tablet 650 mg (2 x 325 mg) PO Q6H PRN 09/27/20 (Athenol) fever or pain #30 tabs meclizine 25 mg tablet 25 mg PO TID PRN dizziness #14 tabs 02/24/23 albuterol sulfate 90 mcg/actuation 2 puff inhalation Q4-6H PRN 03/22/23 aerosol inhaler shortness of breath or wheezing #8.5 grams lansoprazole 30 mg capsule,delayed 30 mg PO DAILY #90 caps 09/16/23 release sucralfate 100 mg/mL oral 10 ml PO BID #420 mL 09/16/23 suspension (Carafate) food supplemt, lactose-reduced 1 ea PO BID #1,422 mL 10/29/23 (Ensure Original oral liquid) diphenhydramine HCl 25 mg capsule 25 mg PO Q6H PRN Allergic Reaction 10/31/23 #15 caps famotidine 20 mg tablet 20 mg PO DAILY #20 tabs 10/31/23 polyethylene glycol 3350 17 gram 17 g PO DAILY #30 ea 10/31/23 oral powder packet (Miralax) quetiapine 25 mg tablet 25 mg PO DAILY@1700 PRN 10/31/23 Anxiety/Restlessness #20 tabs Allergies Allergy/AdvReac Type Severity Reaction Status Date / Time azithromycin [From ZITHROMAX] Allergy Severe GENERIC Verified 10/29/23 09:46 ONLY-SEVERE ABD PAIN, abdominal pain codeine [CODEINE] Allergy Intermediate NAUSEA & Verified 10/29/23 09:46 VOMITING,FAINTED, nausea, vomiting, syncope erythromycin base Allergy Intermediate HIVES, ABD Verified 10/29/23 09:46 [ERYTHROMYCIN BASE] PAIN promethazine [From PHENERGAN] Allergy Intermediate DIZZY / Verified 10/29/23 09:46 NAUSEATED amoxicillin [Prevpac] Allergy Unknown Unknown Verified 10/29/23 09:46 clarithromycin [Prevpac] Allergy Unknown Unknown Verified 10/29/23 09:46 Review of Systems Review of Systems: Yes all other systems are reviewed and are negative PMFSH Past Medical History Medical History Failure to thrive in adult Hematuria of unknown cause Hx of breast cancer Hypothyroid Arthritis History of anemia History of colitis Dysphagia Weight loss, unintentional GI bleed Hx of syncope Bright red blood per rectum Constipation GERD (gastroesophageal reflux disease) Anxiety Surgical History History of esophagogastroduodenoscopy (EGD) Hx of colonoscopy H/O left mastectomy History of ankle surgery Family History Family History Father No problems noted. 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 have visiting nurse or other home services: Yes Alcohol intake: never Patient Tobacco Use Status: Never used Tobacco Smoked in Last 30 Days: No Use of substances other than those prescribed or required for medical reasons: No Advance Directives: Yes Advance Directives on File: Yes Advance Directives Date on File: 10/20/20 service: No Current occupational status: retired Physical Exam Vital Signs: Vital Signs: Last Vital Signs Temp 98.8 F 03/03/24 11:20 Pulse 78 03/03/24 11:20 Resp 18 03/03/24 11:20 BP 144/71 H 03/03/24 11:20 Pulse Ox 98 03/03/24 11:20 O2 Del Method Room Air 03/03/24 11:20 BMI result Body Mass Index 26.8 Const: Other: The patient is somewhat chronically ill appearing 84-year-old who was awake and alert. She has a very pleasant and cheerful demeanor. She does not appear in distress at all or acutely ill. HEENT: Other: Face is symmetrical. Patient is edentulous. Mucous membranes moist. Pharynx unremarkable. Eyes: Other: Pupils are round equal, conjunctivae clear, extraocular movements intact Neck: Other: No JVD Resp: Effort & Inspection: normal respiratory effort Auscultation: clear to auscultation bilaterally Cardio: Rate: regular rate Rhythm: regular rhythm Heart sounds: S1 normal heart sound present and S2 normal heart sound present GI: Other: Abdomen is soft and nontender Medical Decision Making Medical Decision Making MDM Narrative: The patient is a very pleasant 84-year-old who comes to the emergency room for evaluation of chest discomfort. Her EKGs unremarkable. Her description of the symptoms is not sound highly concerning for an acute coronary syndrome. Her EKG is unremarkable. Her troponins are flat. Overall my suspicion for an acute coronary syndrome is very low I think she may be discharged to follow up with the regular doctor. She looks well otherwise. She had no ongoing symptoms in the emergency room. Lab Data 03/03/24 07:32 03/03/24 08:19 Labs: Lab Results 03/03/24 03/03/24 03/03/24 Range/Units 07:32 08:19 10:13 WBC 5.4 (4.8-10.8) X10*3/uL RBC 4.30 (4.20-5.50) X10*6/uL Hgb 12.2 (12.0-16.0) g/dl Hct 36.6 L (37.0-47.0) % MCV 85.1 (80.0-98.0) fL MCH 28.4 (27.0-33.0) pg MCHC 33.3 (31.0-35.0) g/dl RDW 14.6 (11.0-16.0) % Plt Count 169 (160-400) X10*3/uL MPV 10.0 (9.4-12.3) fL Immature Gran % (Auto) 0.2 (0.0-0.4) % Neut % (Auto) 50.9 (45-73) % Lymph % (Auto) 37.7 (20-40) % [place] % (Auto) 8.8 (2-11) % Eos % (Auto) 2.0 (0-4) % Baso % (Auto) 0.4 (0-2) % Lymph # (Auto) 2.1 (1.2-4.9) X10*3/uL [place] # (Auto) 0.5 (0.1-1.2) X10*3/uL Eos # (Auto) 0.1 (0.0-0.4) X10*3/uL Baso # (Auto) 0.0 (0.0-0.2) X10*3/uL Abs Immat Gran (auto) 0.01 (0.00-0.03) X10*3/uL Absolute Neuts (auto) 2.8 (2.0-8.3) x10*3/uL Absolute Nucleated RBC 0.000 (0.0-0.012) X10*3/uL Nucleated RBC % (auto) 0.0 (0.0-0.2) /100WBC Sodium 142 (135-145) mmol/L Potassium 4.5 (3.3-5.1) mmol/L Chloride 109 H (96-108) mmol/L Carbon Dioxide 26 (22-29) mmol/L Anion Gap 12 (12-20) BUN 23 H (9-16) mg/dL Creatinine 0.89 (0.5-1.4) mg/dL Estim Creat Clear Calc 42.8 Estimated GFR > 60 Random Glucose 86 (60-115) mg/dL Calcium 9.5 (8.4-10.2) mg/dL Magnesium 2.0 (1.6-2.6) mg/dL Total Bilirubin 0.2 (0.0-1.0) mg/dL AST 19 (5-31) U/L ALT 14 (0-31) U/L Alkaline Phosphatase 63 (39-117) U/L Troponin I High Sens 2.8 D < 2.7 (<3.5-17.0) ng/L B-Natriuretic Peptide 37 (<100) pg/mL Total Protein 7.2 (6.5-8.0) g/dL Albumin 3.5 (3.5-5.0) g/dL Influenza Type A (PCR) NEGATIVE (Negative) Influenza Type B (PCR) NEGATIVE (Negative) RSV RNA Qual (PCR) NEGATIVE (Negative) SARS-CoV-2 RNA (RT-PCR) NEGATIVE (Negative) Discharge Plan Discharge Clinical Impression: Chest discomfort Patient Disposition: Home, Self-Care Additional Instructions: Your testing today is very reassuring. There is no sign of a heart attack. Please continue your regular medications. Please follow-up soon with your regular doctor's office. Return to the emergency room if worse. Prescriptions: No Action acetaminophen [Athenol] 325 mg tablet 650 mg PO Q6H PRN (Reason: fever or pain) Qty: 30 0RF meclizine 25 mg tablet 25 mg PO TID PRN (Reason: dizziness) Qty: 14 0RF Ensure Original Liquid 1 ea PO BID Qty: 1422 3RF docusate sodium 100 mg capsule 100 mg PO BID PRN (Reason: Constipation) diphenhydramine HCl 25 mg Capsule 25 mg PO Q6H PRN (Reason: Allergic Reaction) Qty: 15 0RF famotidine 20 mg Tablet 20 mg PO DAILY Qty: 20 0RF quetiapine 25 mg Tablet 25 mg PO DAILY@1700 PRN (Reason: Anxiety/Restlessness) Qty: 20 0RF polyethylene glycol 3350 [Miralax] 17 gram powder in packet 17 g PO DAILY Qty: 30 0RF Rx Instructions: Hold for diarrhea albuterol sulfate 90 mcg/actuation HFA aerosol inhaler 2 puff inhalation Q4-6H PRN (Reason: shortness of breath or wheezing) Qty: 8.5 0RF levothyroxine 75 mcg tablet 75 mcg PO DAILY lansoprazole 30 mg capsule,delayed release(DR/EC) 30 mg PO DAILY Qty: 90 2RF sucralfate [Carafate] 100 mg/mL suspension 10 ml PO BID Qty: 420 2RF Referrals: Dee Dee Rueda MD [Physician] - (chest pain) Interventions: ED Discharge Assessment Last Done: 03/03/24 11:20 Discharge Date/Time: 03/03/24 11:55
--- NOTE | 2024-03-03 08:09 | PC.NURSE ---
From home with complaints of being woken up with non radiating 5/10 pain in the center of her chest. Denies headache. nausea or vomiting. Reports was fine last night and woke up with the pain
[2024-03-03 08:27] LABS: Influenza A PCR NEGATIVE (Negative); Influenza B PCR NEGATIVE (Negative); Resp Syncy Virus RNA Qual PCR NEGATIVE (Negative); SARS COV2 PCR INHOUSE NEGATIVE (Negative)
[2024-03-03 08:33] LABS: Anion Gap 12 (12-20)
[2024-03-03 08:40] LABS: Alanine Aminotransferase 14 U/L (0-31); Albumin Level 3.5 g/dL (3.5-5.0); Alkaline Phosphatase 63 U/L (39-117); Aspartate Amino Transferase 19 U/L (5-31); Bilirubin Total 0.2 mg/dL (0.0-1.0); Blood Urea Nitrogen 23 mg/dL (9-16); Calcium 9.5 mg/dL (8.4-10.2); Carbon Dioxide 26 mmol/L (22-29); Chloride 109 mmol/L (96-108); Creatinine Clr Calc Pharmacy 42.8; Estimated Glomerular Filt Rate > 60; Glucose Random 86 mg/dL (60-115); Potassium 4.5 mmol/L (3.3-5.1); Sodium 142 mmol/L (135-145); Total Protein 7.2 g/dL (6.5-8.0)
[2024-03-03 10:01] LABS: B Type Natriuretic Peptide 37 pg/mL (<100)
[2024-03-03 10:49] LABS: Troponin-I High Sensitivity < 2.7 ng/L (<3.5-17.0)
[2024-03-03 11:20] VITALS: BP 144/71; PULSE 78; RESP 18; TEMP 37.1; O2SAT 98
--- NOTE | 2024-03-03 11:54 | PC.NURSE ---
[facility] booked to transport patient home, patient brought to ER and will be escorted to [facility] by alexey
== END 2024-03-03 11:55 | disposition home or self-care (01) ==
PROVIDERS: Physician Assistant Medical; Emergency Provider Emergency Medicine
DX: R07.89 Other chest pain (principal); Z88.8 Allergy status to other drugs, medicaments and biological substances; Z03.818 Encounter for observation for suspected exposure to other biological agents ruled out
CPT/HCPCS: 0241U; 36415; 71046; 80053; 83735; 83880; 84484; 85025; 93005; 99283; 99284

== ENCOUNTER → 2024-03-03 07:24 | Outpatient (BNV) | payer OTHER, SELFPAY | PROVIDERS: Emergency Provider Emergency Medicine; Visit Provider Internal Medicine Cardiovascular Disease | DX: R94.31 Abnormal electrocardiogram [ECG] [EKG] (principal) | CPT/HCPCS: 93010 ==

== ENCOUNTER → 2024-07-30 14:29 | Outpatient (RCR) | payer MEDICARE, SELFPAY ==
[2021-04-07 13:17] VITALS: BP 128/61; PULSE 66; RESP 12; TEMP 36.6; O2SAT 98; BMI 23.1
--- NOTE | 2021-04-07 13:20 | PM.HEMONCPN ---
Medical Summary - Medical Summary Date of Service: 04/07/21 Chief complaint: Follow-up for: Breast cancer. Medical Summary: DIAGNOSIS; BREAST CANCER. PULMONARY NODULE. Interval History Interval history: 81 year old lady, here after a long hiatus. She tells me, she feels relatively well. She does not have any major fatigability. She denies any chest pain or trouble breathing. No abdominal pain nausea vomiting heartburn indigestion. Her bowels are moving without any gross blood in it. Her appetite is good, she has gained weight. She does eat healthy. She denies headache nor dizziness. No joint pains. She is in good spirits. Rest of the ROS is unremarkable. Review of Systems - Constitutional Reports system reviewed and no additional complaints, except as documented - Eyes Reports system reviewed and no additional complaints, except as documented - ENT Reports system reviewed and no additional complaints, except as documented - Cardiovascular Reports system reviewed and no additional complaints, except as documented - Respiratory Reports no additional respiratory complaints - Gastrointestinal Reports system reviewed and no additional complaints, except as documented - Genitourinary Reports no additional female genitourinary complaints - Musculoskeletal Reports system reviewed and no additional complaints, except as documented - Integumentary/Breasts Skin/Breast: Reports no additional skin complaints - Neurologic Reports system reviewed and no additional complaints, except as documented - Psychiatric Reports system reviewed and no additional complaints, except as documented - Endocrine Reports no additional endocrine complaints - Hematologic/Lymphatic Reports system reviewed and no additional complaints, except as documented - Allergic/Immunologic Reports system reviewed and no additional complaints, except as documented PMF Medical History: Medical History (Last Reviewed 04/07/21 @ 13:18 by Ambreen Rubin) Anxiety Arthritis Bright red blood per rectum Constipation Dysphagia GERD (gastroesophageal reflux disease) GI bleed History of anemia History of colitis Hx of breast cancer Hx of syncope Hypothyroid Weight loss, unintentional Functional capacity: uses cane/walker Patient : No Family History: Family History (Last Reviewed 04/07/21 @ 13:18 by Ambreen Rubin) Father No problems noted. 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 Alcohol History: Alcohol intake: never Alcohol History Details: Alcohol intake frequency: does not drink Tobacco History: Smoking Status: Never smoker Advance Directives: Advance Directives Date on File: 10/20/20 Occupation Assessmet: service: No Current occupational status: retired Smoking status: Never smoker Oncology Screenings - ECOG Performance Status ECOG Performance Status: 1 Home Medications and Allergies Home Medications Medication Instructions Recorded Confirmed Type levothyroxine 1 tab PO DAILY 11/07/20 04/07/21 History cholecalciferol (vitamin D3) 25 25 mcg PO DAILY 11/28/20 04/07/21 History mcg (1,000 unit) capsule pantoprazole 40 mg tablet,delayed 40 mg PO DAILY 11/28/20 04/07/21 History release Allergies Allergy/AdvReac Type Severity Reaction Status Date / Time azithromycin [From ZITHROMAX] Allergy Severe GENERIC Verified 11/07/20 01:17 ONLY-SEVERE ABD PAIN, abdominal pain codeine [CODEINE] Allergy Intermediate NAUSEA & Verified 11/07/20 01:17 VOMITING,FAINTED, nausea, vomiting, syncope erythromycin base Allergy Intermediate HIVES, ABD Verified 11/07/20 01:17 [ERYTHROMYCIN BASE] PAIN promethazine [From PHENERGAN] Allergy Intermediate DIZZY / Verified 11/07/20 01:17 NAUSEATED amoxicillin [Prevpac] Allergy Unknown Unknown Verified 11/07/20 01:17 clarithromycin [Prevpac] Allergy Unknown Unknown Verified 11/07/20 01:17 Erythromycin Allergy Unknown hives, Uncoded 06/21/20 00:00 abdominal pain Exam Vital signs: Vital Signs Temp 97.9 F 04/07/21 13:17 Pulse 66 04/07/21 13:17 Resp 12 04/07/21 13:17 BP 128/61 04/07/21 13:17 Pulse Ox 98 04/07/21 13:17 Intake & Output 04/06/21 04/07/21 04/07/21 18:59 06:59 18:59 Other: Weight 61.3 kg [place] Weight in Grams [id number] Weight 61.3 kg Body Mass Index 23.1 - Constitutional Present: no acute distress - Routine HEENT Exam Head: Present: normal inspection Eye: Present: normal appearance ENT: Present: mucous membranes moist - Routine Neck Exam Present: full ROM - Routine Respiratory Exam Present: CTAB - Routine Cardiovascular Exam Cardiovascular: Present: RRR, S1, S2 - Routine Abdominal Exam Present: soft, nontender - Routine Rectal Exam Patient deferred: digital exam - Routine Extremities Exam Present: nontender - Routine Back/Spine/Pelvis Exam Back/Spine: Present: full ROM - Routine Skin Exam Present: intact - Routine Neurological Exam Present: alert, oriented X3 - Routine Psychiatric Exam Present: normal affect Progress Note: A/P (1) Breast cancer in female Status: Acute Assessment and plan: 81 year-old lady, is clinically doing well. 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 Status post mastectomy, in 1986. She had 5 cycles of chemotherapy, likely had CMF. Those records are not available. She now has bilateral pulmonary nodules, concern was metastases. An attempt was made to biopsy one of the nodules. This was done under CAT scan guidance. The results are nondiagnostic. The patient was referred to thoracic surgery for a bronchoscopy & a biopsy. They actually saw her and scheduled a broncho. However, the patient did not show up for the appointment, she got scared. She finally had the bronchoscopy on 09/17/2018. It revealed: A. Left lingular bronchial washings (cytology with cell block): Bronchial epithelial cells and abundant acute inflammatory cells. No malignant cells seen. B. Right bronchial washings (cytology with cell block): Bronchial epithelial cells, mucus, and a few acute inflammatory cells. No malignant cells seen. CT chest from 03/21/2021: Biapical nodular pleural thickening is redemonstrated, slightly more prominent when compared to the prior CT. Subpleural thickening and nodularity with associated cystic airspace disease and irregular reticulonodular densities again noted within the apex of the left lower lobe, increased in prominence when compared to the prior examination. Bronchiectasis and associated irregular/nodular densities along the posterior aspect of the left upper lobe have slightly decreased in prominence when compared to the prior CT. Given waxing and waning appearance of the lung disease, this may be related to an acute on chronic infectious or inflammatory process. No significant lymphadenopathy. She says she is feeling relatively well. PLAN: I will refer her for further pulmonary consultation regarding the abnormal findings on the CT scan of the chest. In the meantime, will check tumor marker, Ca 27.29. She said she would like to continue follow-up with her primary. I will be happy to see her again if there is any questions in future. I wish her the best of luck. Thank you, CC: Dr. Issac Taylor. Dr. Law Sarabia. - Time Spent With Patient Total time spent is greater than 50% in coordination of care (as documented) at patient's floor/unit and/or counseling patient: 25 - 35 minutes
--- NOTE | 2021-04-07 15:10 | MHC.HEMONCMA ---
Pt presnt for f/u on breast cancer. History reviewed and pt to return prn.
== END | disposition home or self-care (01) ==
LOC: HO.ONC 04-07 13:04
PROVIDERS: PCP Internal Medicine; Visit Provider Internal Medicine Medical Oncology
DX: R91.8 Other nonspecific abnormal finding of lung field (principal); Z85.3 Personal history of malignant neoplasm of breast; Z92.21 Personal history of antineoplastic chemotherapy; Z90.11 Acquired absence of right breast and nipple
CPT/HCPCS: 99214

== ENCOUNTER 2024-11-11 12:06 | Emergency (ER) | payer OTHER, SELFPAY ==
[2024-11-11 12:33] VITALS: BP 108/70; PULSE 76; O2SAT 97
[2024-11-11 12:49] VITALS: BP 122/56; PULSE 67; RESP 18; TEMP 36.1; O2SAT 94; BMI 27.4
--- NOTE | 2024-11-11 13:39 | ED_ITS ---
HPI - General Adult General Chief complaint: General Medical Stated complaint: DTR STS:@ BASLINE,DIZZY,NAUSEA,DIARRHEA PER EMS Time Seen by Provider: 11/11/24 13:39 History of Present Illness ED Provider: Mary AN narrative: The patient is an 84-year-old female who was brought from home by ambulance after she developed nausea and some loose stools. She may have had some abdominal pain earlier but she does not have any abdominal pain at the time that I speak with her. She reports having 3 loose stools today. She was nauseated but did not vomit. She was feeling reasonably well yesterday. She was supposed to fly to [place] for a vacation tonight. She is here with her [employer]. Related Data Home Medications ?Medication ?Instructions ?Recorded ?Confirmed levothyroxine 75 mcg tablet 75 mcg PO DAILY 06/21/23 10/29/23 docusate sodium 100 mg capsule 100 mg PO BID PRN Constipation 10/29/23 10/29/23 Previous Rx's ?Medication ?Instructions ?Recorded acetaminophen 325 mg tablet 650 mg (2 x 325 mg) PO Q6H PRN 09/27/20 (Athenol) fever or pain #30 tabs meclizine 25 mg tablet 25 mg PO TID PRN dizziness #14 tabs 02/24/23 albuterol sulfate 90 mcg/actuation 2 puff inhalation Q4-6H PRN 03/22/23 aerosol inhaler shortness of breath or wheezing #8.5 grams lansoprazole 30 mg capsule,delayed 30 mg PO DAILY #90 caps 09/16/23 release sucralfate 100 mg/mL oral 10 ml PO BID #420 mL 09/16/23 suspension (Carafate) food supplemt, lactose-reduced 1 ea PO BID #1,422 mL 10/29/23 (Ensure Original oral liquid) diphenhydramine HCl 25 mg capsule 25 mg PO Q6H PRN Allergic Reaction 10/31/23 #15 caps famotidine 20 mg tablet 20 mg PO DAILY #20 tabs 10/31/23 polyethylene glycol 3350 17 gram 17 g PO DAILY #30 ea 10/31/23 oral powder packet (Miralax) quetiapine 25 mg tablet 25 mg PO DAILY@1700 PRN 10/31/23 Anxiety/Restlessness #20 tabs Allergies Allergy/AdvReac Type Severity Reaction Status Date / Time azithromycin [From ZITHROMAX] Allergy Severe GENERIC Verified 11/11/24 12:50 ONLY-SEVERE ABD PAIN, abdominal pain codeine [CODEINE] Allergy Intermediate NAUSEA & Verified 11/11/24 12:50 VOMITING,FAINTED, nausea, vomiting, syncope erythromycin base Allergy Intermediate HIVES, ABD Verified 11/11/24 12:50 [ERYTHROMYCIN BASE] PAIN promethazine [From PHENERGAN] Allergy Intermediate DIZZY / Verified 11/11/24 12:50 NAUSEATED amoxicillin [Prevpac] Allergy Unknown Unknown Verified 11/11/24 12:50 clarithromycin [Prevpac] Allergy Unknown Unknown Verified 11/11/24 12:50 Review of Systems 2 Review of Systems: Yes all other systems are reviewed and are negative PMFSH Past Medical History Medical History Failure to thrive in adult Hematuria of unknown cause Hx of breast cancer Hypothyroid Arthritis History of anemia History of colitis Dysphagia Weight loss, unintentional GI bleed Hx of syncope Bright red blood per rectum Constipation GERD (gastroesophageal reflux disease) Anxiety Surgical History History of esophagogastroduodenoscopy (EGD) Hx of colonoscopy H/O left mastectomy History of ankle surgery Family History Family History Father No problems noted. 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 have visiting nurse or other home services: Yes Alcohol intake: never Patient Tobacco Use Status: Never used Tobacco Smoked in Last 30 Days: No Use of substances other than those prescribed or required for medical reasons: No Advance Directives: Yes Advance Directives on File: Yes Advance Directives Date on File: 10/20/20 service: No Current occupational status: retired Physical Exam ED Vital Signs: Vital Signs - 24 hr 11/11/24 12:49 11/11/24 16:25 11/11/24 16:30 Temperature 97 F 98.1 F 98.1 F Pulse Rate 67 63 63 Respiratory Rate 18 16 18 Blood Pressure 122/56 L 130/64 130/64 Pulse Oximetry 94 97 97 Oxygen Delivery Method Room Air Room Air Room Air BMI result Body Mass Index 27.4 Const Other: the patient is a somewhat frail looking 84-year-old. However she is awake and alert with normal mental status and she does not seem in acute distress. HENMT Other: A Head: Yes normal to inspection Face and sinus: Yes normal facial exam Mouth: Normal oral and palatal mucosa present and moist mucous membranes Eyes General: appearance normal, both eyes and all related structures Neck Neck: Yes full ROM Resp Effort & Inspection: normal respiratory effort Auscultation: clear to auscultation bilaterally Cardio Rate: regular rate Rhythm: regular rhythm Heart sounds: S1 normal heart sound present and S2 normal heart sound present GI Other: he abdomen is soft and nontender. Skin Other: The skin is pale and dry Neuro Other: the patient is awake and alert with normal mental status. Cranial nerves are grossly intact. She moves her extremities symmetrically. She seems neurologically intact Extrem Other: no peripheral edema Medical Decision Making Medical Decision Making MDM Narrative: the patient is an 84-year-old woman who came to the emergency room with gastrointestinal complaints including nausea and loose stools. She was feeling somewhat better by the time she got here. She was not having any abdominal pain and she was not having ongoing nausea. She had a bowel movement in the emergency room that was sort of a mixture of solid and liquid stool. This was sent for testing. Her C diff is negative. The stool panel is negative. Labs are unremarkable. Abdominal exam was benign. She was feeling better and wanted to go home. She was discharged with her [employer]. Lab Data 11/11/24 14:37 11/11/24 14:36 Labs: Lab Results 11/11/24 11/11/24 11/11/24 Range/Units 14:16 14:36 14:37 WBC 7.3 (4.8-10.8) X10*3/uL RBC 4.55 (4.20-5.50) X10*6/uL Hgb 13.2 (12.0-16.0) g/dl Hct 38.3 (37.0-47.0) % MCV 84.2 (80.0-98.0) fL MCH 29.0 (27.0-33.0) pg MCHC 34.5 (31.0-35.0) g/dl RDW 15.1 (11.0-16.0) % Plt Count 190 (160-400) X10*3/uL MPV 9.4 (9.4-12.3) fL Immature Gran % (Auto) 0.3 (0.0-0.4) % Neut % (Auto) 76.0 H (45-73) % Lymph % (Auto) 16.1 L (20-40) % [place] % (Auto) 6.9 (2-11) % Eos % (Auto) 0.4 (0-4) % Baso % (Auto) 0.3 (0-2) % Lymph # (Auto) 1.2 (1.2-4.9) X10*3/uL [place] # (Auto) 0.5 (0.1-1.2) X10*3/uL Eos # (Auto) 0.0 (0.0-0.4) X10*3/uL Baso # (Auto) 0.0 (0.0-0.2) X10*3/uL Abs Immat Gran (auto) 0.02 (0.00-0.03) X10*3/uL Absolute Neuts (auto) 5.5 (2.0-8.3) x10*3/uL Absolute Nucleated RBC 0.000 (0.0-0.012) X10*3/uL Nucleated RBC % (auto) 0.0 (0.0-0.2) /100WBC Sodium 143 (135-145) mmol/L Potassium 3.9 (3.3-5.1) mmol/L Chloride 109 H (96-108) mmol/L Carbon Dioxide 27 (22-29) mmol/L Anion Gap 11 L (12-20) BUN 17 H (9-16) mg/dL Creatinine 1.05 (0.5-1.4) mg/dL Estim Creat Clear Calc 35.2 Estimated GFR 50 Random Glucose 143 H (60-115) mg/dL Calcium 10.4 H D (8.4-10.2) mg/dL Total Bilirubin 0.4 (0.0-1.0) mg/dL Direct Bilirubin 0.1 (0.0-0.5) mg/dL AST 30 (5-31) U/L ALT 26 (0-31) U/L Alkaline Phosphatase 78 (39-117) U/L C-Reactive Protein 0.60 H (< or = 0.50) mg/dL Total Protein 7.8 (6.5-8.0) g/dL Albumin 4.1 (3.5-5.0) g/dL Stl C. cayetanensis PCR Not Detected (Not Detect.) Stool Rotavirus A PCR Not Detected (Not Detect.) Stl Adenov F 40/41 PCR Not Detected (Not Detect.) Stool Astrovirus (PCR) Not Detected (Not Detect.) Stool Campylobacter PCR Not Detected (Not Detect.) Stool Cryptosporidium PCR Not Detected (Not Detect.) Stl Sh Tox Pr E STEC PCR Not Detected (Not Detect.) Stool E coli O157 PCR Not applicable (Not Detect.) Stl Enterotoxigenic E PCR Not Detected (Not Detect.) Stool EPEC (PCR) Not Detected (Not Detect.) Stool EAEC (PCR) Not Detected (Not Detect.) Stl E. histolytica PCR Not Detected (Not Detect.) Stool Giardia Lamblia PCR Not Detected (Not Detect.) Stl P. shigelloides PCR Not Detected (Not Detect.) Stool Salmonella PCR Not Detected (Not Detect.) Stool Sapovirus (PCR) Not Detected (Not Detect.) Stl Shigella/EIEC PCR Not Detected (Not Detect.) St Y.enterocolitica PCR Not Detected (Not Detect.) Stool Vibrio (PCR) Not Detected (Not Detect.) Stl Vibrio cholerae PCR Not Detected (Not Detect.) Stl Norovirus GI/GII PCR Not Detected (Not Detect.) C. difficile Tox B Gene NEGATIVE (Negative) Discharge Plan Discharge Clinical Impression: Nausea, Loose stools Patient Disposition: Home, Self-Care Additional Instructions: Your testing in the emergency room is very reassuring. Please continue your regular medications. I would eat a bland diet for the next few days. Things like bananas, applesauce, rice, and toast. If you continued to have significantly loosened stools you may try [id number] loperamide (Imodium). Please plan on making a follow up appointment with your regular doctor. Return to the emergency room if worse. Prescriptions: No Action acetaminophen [Athenol] 325 mg tablet 650 mg PO Q6H PRN (Reason: fever or pain) Qty: 30 0RF meclizine 25 mg tablet 25 mg PO TID PRN (Reason: dizziness) Qty: 14 0RF Ensure Original Liquid 1 ea PO BID Qty: 1422 3RF docusate sodium 100 mg capsule 100 mg PO BID PRN (Reason: Constipation) diphenhydramine HCl 25 mg Capsule 25 mg PO Q6H PRN (Reason: Allergic Reaction) Qty: 15 0RF famotidine 20 mg Tablet 20 mg PO DAILY Qty: 20 0RF quetiapine 25 mg Tablet 25 mg PO DAILY@1700 PRN (Reason: Anxiety/Restlessness) Qty: 20 0RF polyethylene glycol 3350 [Miralax] 17 gram powder in packet 17 g PO DAILY Qty: 30 0RF Rx Instructions: Hold for diarrhea albuterol sulfate 90 mcg/actuation HFA aerosol inhaler 2 puff inhalation Q4-6H PRN (Reason: shortness of breath or wheezing) Qty: 8.5 0RF levothyroxine 75 mcg tablet 75 mcg PO DAILY lansoprazole 30 mg capsule,delayed release(DR/EC) 30 mg PO DAILY Qty: 90 2RF sucralfate [Carafate] 100 mg/mL suspension 10 ml PO BID Qty: 420 2RF Referrals: Dee Dee Rueda MD [Primary Care Provider] - (GI symptoms) Interventions: ED Discharge Assessment Last Done: 11/11/24 16:30 Discharge Date/Time: 11/11/24 16:54 Print Language: Sammarinese
--- NOTE | 2024-11-11 14:08 | ECG_ITS ---
Test Reason : WEAKNESS Blood Pressure : / mmHG Vent. 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
[2024-11-11 14:40] LABS: MANUAL DIFF FLAG NO
[2024-11-11 14:41] LABS: Basophils Percent Auto 0.3 % (0-2); Eosinophils Percent Auto 0.4 % (0-4); Hematocrit 38.3 % (37.0-47.0); Hemoglobin 13.2 g/dl (12.0-16.0); Imm Gran Abs Auto 0.02 X10*3/uL (0.00-0.03); Imm Gran Pct Auto 0.3 % (0.0-0.4); Lymphocytes Absolute Auto 1.2 X10*3/uL (1.2-4.9); Lymphocytes Percent Auto 16.1 % (20-40); Mean Corpuscular HGB Conc 34.5 g/dl (31.0-35.0); Mean Corpuscular Volume 84.2 fL (80.0-98.0); Mean Platelet Volume 9.4 fL (9.4-12.3); Monocytes Absolute Auto 0.5 X10*3/uL (0.1-1.2); Monocytes Percent Auto 6.9 % (2-11); Neutrophils Absolute Auto 5.5 x10*3/uL (2.0-8.3); Platelet Count 190 X10*3/uL (160-400); Red Blood Count 4.55 X10*6/uL (4.20-5.50); Red Cell Distribution Width 15.1 % (11.0-16.0); White Blood Count 7.3 X10*3/uL (4.8-10.8)
[2024-11-11 14:58] LABS: Alanine Aminotransferase 26 U/L (0-31); Albumin Level 4.1 g/dL (3.5-5.0); Alkaline Phosphatase 78 U/L (39-117); Anion Gap 11 (12-20); Aspartate Amino Transferase 30 U/L (5-31); Bilirubin Direct 0.1 mg/dL (0.0-0.5); Bilirubin Total 0.4 mg/dL (0.0-1.0); Blood Urea Nitrogen 17 mg/dL (9-16); Calcium 10.4 mg/dL (8.4-10.2); Carbon Dioxide 27 mmol/L (22-29); Chloride 109 mmol/L (96-108); Creatinine Clr Calc Pharmacy 35.2; Estimated Glomerular Filt Rate 50; Glucose Random 143 mg/dL (60-115); Potassium 3.9 mmol/L (3.3-5.1); Sodium 143 mmol/L (135-145); Total Protein 7.8 g/dL (6.5-8.0)
[2024-11-11 15:31] LABS: CDiff Gene PCR NEGATIVE (Negative)
--- NOTE | 2024-11-11 16:03 | MHC.EDTECH ---
EKG delay all EKG machine in use. nurse aware
[2024-11-11 16:24] LABS: Adenovirus F 40/41 Not Detected (Not Detect.); Astrovirus Not Detected (Not Detect.); Campylobacter Not Detected (Not Detect.); Cryptosporidium Not Detected (Not Detect.); Cyclospora cayetanensis Not Detected (Not Detect.); E. coli EAEC Not Detected (Not Detect.); E. coli EPEC Not Detected (Not Detect.); E. coli ETEC Not Detected (Not Detect.); E. coli STEC Not Detected (Not Detect.); Entamoeba histolytica Not Detected (Not Detect.); Giardia lamblia Not Detected (Not Detect.); Norovirus GI/GII Not Detected (Not Detect.); Plesiomonas shigelloides Not Detected (Not Detect.); Rotavirus A Not Detected (Not Detect.); Salmonella Not Detected (Not Detect.); Sapovirus Not Detected (Not Detect.); Shigella sp./EIEC Not Detected (Not Detect.); Vibrio Not Detected (Not Detect.); Vibrio Cholerae Not Detected (Not Detect.); Yersinia enterocolitica Not Detected (Not Detect.)
[2024-11-11 16:25] VITALS: BP 130/64; PULSE 63; RESP 16; TEMP 36.7; O2SAT 97
[2024-11-11 16:30] VITALS: BP 130/64; PULSE 63; RESP 18; TEMP 36.7; O2SAT 97
== END 2024-11-11 16:54 | disposition home or self-care (01) ==
PROVIDERS: Emergency Provider Emergency Medicine; PCP Internal Medicine
DX: R11.0 Nausea (principal); R19.7 Diarrhea, unspecified; R53.1 Weakness
CPT/HCPCS: 36415; 80048; 80076; 85025; 86140; 87493; 87507; 93005; 99283; 99284

== ENCOUNTER → 2024-11-11 14:08 | Outpatient (BNV) | payer OTHER, SELFPAY | PROVIDERS: Emergency Provider Emergency Medicine; PCP Internal Medicine; Visit Provider Internal Medicine Cardiovascular Disease | DX: R94.31 Abnormal electrocardiogram [ECG] [EKG] (principal) | CPT/HCPCS: 93010 ==

== ENCOUNTER 2025-02-02 05:02 | Emergency (ER) | payer OTHER, SELFPAY ==
--- NOTE | 2025-02-02 | ECG_ITS ---
Test Reason : fall Blood Pressure : */* mmHG Vent. Rate : 74 BPM Atrial Rate : 74 BPM P-R Int : 164 ms QRS Dur : 84 ms QT Int : 386 ms P-R-T Axes : 74 -1 44 degrees QTcB Int : 428 ms Normal sinus rhythm Moderate voltage criteria for LVH, may be normal variant ( R in aVL , [place] product ) Septal infarct (cited on or before 11-Nov-2024) Abnormal ECG When compared with ECG of 11-Nov-2024 15:26, Questionable change in QRS axis Nonspecific T wave abnormality no longer evident in Inferior leads Referred By: Generic ED Physician Electronically Signed By: SHAHRZAD PROCTOR MD
--- NOTE | ~2025-02-02 | CT_ITS ---
CLINICAL HISTORY: unwitnessed fall CT head without contrast Comparison: CT/SR - CT HEAD/BRAIN WO IV CON - 10/29/23 10:29 EST Findings: No intra-axial mass, midline shift, hydrocephalus, or acute hemorrhage. Mild subcortical and periventricular white matter hypodensity suggesting chronic microangiopathy. More focal area of hypodensity within the left temporal lobe anterior to the mildly dilated temporal horn of the left lateral ventricle similar to the prior exams and possibly an area of old injury or infarct. The visualized paranasal sinuses and mastoid air cells are normal. The orbits are within normal limits. There is no acute fracture. IMPRESSION: 1. No acute intracranial hemorrhage or skull fracture. 2. 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 This document has been electronically signed by: Evon Angel MD on 02/02/2025 06:25:46
--- NOTE | ~2025-02-02 | CT_ITS ---
CLINICAL HISTORY: unwitnessed fall CT cervical spine without contrast Comparison: None Findings: Normal vertebral body alignment. Multilevel right-sided facet hypertrophy. No acute fractures or dislocations. No acute findings on limited view of the intracranial contents. Soft tissues of the neck are normal. Similar biapical consolidation versus scarring. IMPRESSION: No evidence of acute fracture or malalignment. This document has been electronically signed by: Evon Angel MD on 02/02/2025 06:30:38
--- NOTE | ~2025-02-02 | XR_ITS ---
EXAMINATION: XR CHEST CLINICAL INFORMATION: confused, r/o PNA COMPARISON: March 03, 2024 TECHNIQUE: 2 views of the chest were obtained. FINDINGS: Pulmonary reticular pattern. Hyperinflation lungs. Bilateral apical lung scarring. No gross consolidation, pleural effusion or pneumothorax. Cardiomediastinal silhouette size is normal. Calcified plaques in the aortic arch. Osteopenia versus osteoporosis. Multilevel thoracolumbar spondylosis. Degenerative changes in the acromioclavicular joints, bilaterally. XR/XR chest 2V IMPRESSION: Chronic interstitial lung disease without overt acute airspace disease. Electronically signed by: Omid Rosa MD 02/02/2025 08:48 AM MARY
[2025-02-02 05:14] VITALS: BP 142/70; PULSE 75; RESP 16; TEMP 36.9; O2SAT 94; BMI 25.9
[2025-02-02 05:57] VITALS: BP 169/82; PULSE 72; RESP 16; TEMP 36.3; O2SAT 96
[2025-02-02 05:58] LABS: Basophils Percent Auto 0.5 % (0-2); Eosinophils Absolute Auto 0.2 X10*3/uL (0.0-0.4); Eosinophils Percent Auto 3.4 % (0-4); Hematocrit 36.8 % (37.0-47.0); Hemoglobin 12.6 g/dl (12.0-16.0); Imm Gran Abs Auto 0.02 X10*3/uL (0.00-0.03); Imm Gran Pct Auto 0.3 % (0.0-0.4); Lymphocytes Absolute Auto 1.5 X10*3/uL (1.2-4.9); Lymphocytes Percent Auto 25.2 % (20-40); MANUAL DIFF FLAG NO; Mean Corpuscular HGB Conc 34.2 g/dl (31.0-35.0); Mean Corpuscular Hemoglobin 28.8 pg (27.0-33.0); Mean Platelet Volume 8.9 fL (9.4-12.3); Monocytes Absolute Auto 0.6 X10*3/uL (0.1-1.2); Monocytes Percent Auto 10.5 % (2-11); Neutrophils Absolute Auto 3.5 x10*3/uL (2.0-8.3); Neutrophils Percent Auto 60.1 % (45-73); Platelet Count 216 X10*3/uL (160-400); Red Blood Count 4.38 X10*6/uL (4.20-5.50); Red Cell Distribution Width 15.3 % (11.0-16.0); White Blood Count 5.8 X10*3/uL (4.8-10.8)
[2025-02-02 06:13] LABS: Alanine Aminotransferase 20 U/L (0-31); Albumin Level 3.9 g/dL (3.5-5.0); Alkaline Phosphatase 68 U/L (39-117); Anion Gap 14 (12-20); Aspartate Amino Transferase 24 U/L (5-31); Bilirubin Total 0.6 mg/dL (0.0-1.0); Blood Urea Nitrogen 17 mg/dL (9-16); Calcium 9.8 mg/dL (8.4-10.2); Carbon Dioxide 25 mmol/L (22-29); Chloride 108 mmol/L (96-108); Creatinine Clr Calc Pharmacy 40.7; Estimated Glomerular Filt Rate > 60; Glucose Random 104 mg/dL (60-115); Potassium 3.9 mmol/L (3.3-5.1); Sodium 143 mmol/L (135-145); Total Protein 7.6 g/dL (6.5-8.0)
[2025-02-02 06:20] LABS: Troponin-I High Sensitivity < 2.7 ng/L (<3.5-17.0)
--- OUTSIDE RECORDS SUMMARY | 2025-02-02 06:42 | XMS_ITS | Encounter Summary ---
Author Organization [employer] Address [address] [place] [address] Care Team Providers Care Electrical Lineworker Name Role Phone Dee Dee Rueda MD Primary Care Provide r Reason for Visit * Reason Comments Med Change Request Encounter Details Date Type Department Care Team ([facility] Contact Info) Description 11/20/2023 Refill [facility] [address] [place] [address] Dee Dee Rueda MD [address] [place] [address] Allergic reaction, initial encounter Social History Tobacco Use Types Packs/Day Years Used Date Smoking Tobacco: Never Passive Smoke Exposure: Never Smokeless Tobacco: Never Alcohol Use Standard Drinks/Week Comments Never 0 (1 standard drink = 0.6 oz pur e alcohol) Depression Answer Date Recorded Patient Health Questionnaire-9 Score 0 04/15/2023 Housing Stability Answer Date Recorded What is your housing situation today? I have dave alvarado 09/23/[address] you li ve. Do you have problems with any of the following? None of the above 09/23/2023 Food Insecurity Answer Date Recorded Within the past 12 months, y ou worried that your food would run out before you got money to buy more: Never True 09/23/2023 Within the past 12 months,th e food you bought just didn't last and you didn't have enough money to get more: Never True Transportation Answer Date Recorded In the past 12 months, has l ack of transportation kept you from medical appts, meetings, work or from getting things needed for daily living? No 09/23/2023 Utilities Answer Date Recorded In the past 12 months, has t he electric, gas, oil or water company threatened to shut off services in your home? No 09/23/2023 Depression Answer Date Recorded Patient Health Questionnaire-2 Score 0 04/15/2023 Comments Unknown Sex and Gender Information Value Date Recorded Sex Assigned at Female 10/01/2022 10:14 AM EDT Legal Sex Female 10:14 AM EDT Gender Identity Female 10/01/2022 10:14 AM EDT Sexual Orientation Choose not to disclose 2021 10:14 AM EDT documented as of this encounter Plan of Treatment Upcoming Encounters Date Type Department Care Team (Late st Contact Info) Description 02/12/2025 1:45 PM EDT Office Visit [facility] [address] [place] [id number] Dee Dee Rueda MD [address] [place] [phone] documented as of this encounter Visit Diagnoses Diagnosis Allergic reaction, initial encounter documented in this encounter Additional Health Concerns Assessment Noted Time PHQ-9 Depression Total Score: 0 04/15/20 23 11:51 AM EDT documented as of this encounter Care Teams Electrical Lineworker Relationship Specialty Start Date End Date Dee Dee Rueda MD [address] [place] [id number] PCP - General Family Medicine 09/07/22 documented as of this encounter
--- OUTSIDE RECORDS SUMMARY | 2025-02-02 06:42 | XMS_ITS | Encounter Summary ---
Author Organization [employer] Address [address] [place] [address] Care Team Providers Care College Specialist Name Role Phone Dee Dee Rueda MD Primary Care Provide r Reason for Visit * Reason Comments Med Refill Encounter Details Date Type Department Care Team ([facility] st Contact Info) Description 01/28/2024 Refill [facility] [address] [place] [address] Comfort Marrero, MARIO [address] [place], [place] [phone] Acquired hypothyroidism Social History Tobacco Use Types Packs/Day Years [...] the past 12 months, has t he [employer], gas, oil or water company threatened to [...] Description 02/12/2025 1:45 PM EDT Office Visit [facility] [address] [place] [phone] Dee Dee Rueda MD [address] [place] [phone] documented as of this encounter Visit Diagnoses Diagnosis Acquired hypothyroidism Unspecified hypothyroidism documented in this encounter Additional Health Concerns Assessment Noted Time PHQ-9 Depression Total Score: 0 04/15/20 23 11:51 AM EDT documented as of this encounter Care Teams College Specialist Relationship Specialty Start Date End Date Dee Dee Rueda MD [address] [place] [phone] PCP - General Family Medicine 09/07/22 documented as of this encounter
--- OUTSIDE RECORDS SUMMARY | 2025-02-02 06:42 | XMS_ITS | Encounter Summary ---
Author Organization [employer] Address [address] [place] [address] Care Team Providers Care Fur Sorter Name Role Phone Dee Dee Rueda MD Primary Care Provide r Reason for Visit * Reason Comments Med Refill Encounter Details Date Type Department Care Team ([facility] st Contact Info) Description 10/18/2023 Refill [facility] [address] [place] [address] Comfort Marrero, MARIO [address] [place] [address] Acquired hypothyroidism Social History Tobacco Use Types [...] the past 12 months, has t he [employer], gas, oil or water company threatened to [...] Description 02/12/2025 1:45 PM EDT Office Visit [facility] [address] [place] [phone] Dee Dee Rueda MD [address] [place] [phone] documented as of this encounter Visit Diagnoses Diagnosis Acquired hypothyroidism Unspecified hypothyroidism documented in this encounter Additional Health Concerns Assessment Noted Time PHQ-9 Depression Total Score: 0 04/15/20 23 11:51 AM EDT documented as of this encounter Care Teams Fur Sorter Relationship Specialty Start Date End Date Dee Dee Rueda MD [address] [place] [phone] PCP - General Family Medicine 09/07/22 documented as of this encounter
--- OUTSIDE RECORDS SUMMARY | 2025-02-02 06:43 | XMS_ITS | Encounter Summary ---
Author Organization [employer] Address [address] [place] [address] Care Team Providers Care Drywall Sander Name Role Phone Dee Dee Rueda MD Primary Care Provide r Reason for Visit * Reason Comments Med Refill Encounter Details Date Type Department Care Team ([facility] st Contact Info) Description 02/03/2024 Refill [facility] [address] [place] [address] Comfort Marrero, MARIO [address] [place] [address] Acquired hypothyroidism Social History Tobacco Use Types [...] the past 12 months, has t he [employer], gas, oil or water company threatened to [...] Description 02/12/2025 1:45 PM EDT Office Visit [facility] [address] [place] [phone] Dee Dee Rueda MD [address] [place] [phone] documented as of this encounter Visit Diagnoses Diagnosis Acquired hypothyroidism Unspecified hypothyroidism documented in this encounter Additional Health Concerns Assessment Noted Time PHQ-9 Depression Total Score: 0 04/15/20 23 11:51 AM EDT documented as of this encounter Care Teams Drywall Sander Relationship Specialty Start Date End Date Dee Dee Rueda MD [address] [place] [phone] PCP - General Family Medicine 09/07/22 documented as of this encounter
--- OUTSIDE RECORDS SUMMARY | 2025-02-02 06:43 | XMS_ITS | Encounter Summary ---
Author Organization [employer] Address [address] [place] [address] Care Team Providers Care Fruit Checker Name Role Phone Dee Dee Rueda MD Primary Care Provide r Reason for Visit * Reason Comments Med Refill Encounter Details Date Type Department Care Team ([facility] st Contact Info) Description 07/06/2024 Refill [facility] [address] [place], [place] [phone] Dee Dee Rueda MD [address] [place] [address] Moderate dementia with other behavioral disturbance, unspecified dementia type (CMS/HCC) Social History Tobacco Use Types Packs/Day Years Used Date Smoking Tobacco: Never Passive Smoke Exposure: Never Smokeless Tobacco: Never Alcohol Use Standard Drinks/Week Comments Never 0 (1 standard drink = 0.6 oz pur e alcohol) Depression Answer Date Recorded Patient Health Questionnaire-9 Score 0 05/05/2024 Patient Health Questionnaire-9 Score 0 05/05/2024 Last PHQ-9: Questionnaire Data Not on file 0 05/05/2024 Housing Stability Answer Date Recorded What is [...] Date Recorded Patient Health Questionnaire-2 Score 0 05/05/2024 Comments Unknown Sex and Gender Information Value [...] Description 02/12/2025 1:45 PM EDT Office Visit [facility] [address] [place] [phone] Dee Dee Rueda MD [address] [place] [phone] documented as of this encounter Visit Diagnoses Diagnosis Moderate dementia with other behavioral disturbance, unspecified dementia type (CMS/HCC) documented in this encounter Additional Health Concerns Assessment Noted Time PHQ-9 Depression Total Score: 0 05/05/20 24 2:30 PM EDT documented as of this encounter Care Teams Fruit Checker Relationship Specialty Start Date End Date Dee Dee Rueda MD [address] [place] [phone] PCP - General Family Medicine 09/07/22 documented as of this encounter
--- OUTSIDE RECORDS SUMMARY | 2025-02-02 06:43 | XMS_ITS | Clinical Summary ---
Author Organization [facility] Address [address] [place] [address] Care Team Providers Care Time Study Observer Name Role Phone Unavailable Primary Care Provider Unavailabl e Social History Tobacco Use Types Packs/Day Years Used Date Smoking Tobacco: Never Assessed Comments Unknown Sex and Gender Information Value Date Recorded Sex Assigned at Not on file Legal Sex Female 8:55 PM EST Gender Identity Not on file Sexual Orientation Not on file Plan of Treatment Health Maintenance Due Date Last Done Comments DTaP,Tdap,and Td Vaccines (1 - Tdap) 1960 Pneumococcal Vaccine: 50+ Ye ars (1 of 1 - PCV) 1991 Zoster Vaccines (1 of 2) 1991 RSV Immunization Patients 60 + Years Old (1 - 1-dose 75+ series) 2016 Depression Screening 12/27/2023 Falls Risk Assessment 12/27/2023 Osteoporosis Screening (Bone Density Screening) 12/27/2023 Social Influencers of Health Screening 12/27/2023 COVID-19 Vaccine ( - 2023-2 5 season) 2024 Influenza Vaccine (#1) 2024 HIB Vaccines Aged Out No longer eligi ble based on patient's age to complete this topic HPV Vaccines Aged Out No longer eligi ble based on patient's age to complete this topic Hepatitis A Vaccines Aged Out No long er eligible based on patient's age to complete this topic Hepatitis B Vaccines Aged Out No long er eligible based on patient's age to complete this topic IPV Vaccines Aged Out No longer eligi ble based on patient's age to complete this topic MMR Vaccines Aged Out No longer eligi ble based on patient's age to complete this topic Meningococcal ACWY Vaccine Aged Out N o longer eligible based on patient's age to complete this topic Meningococcal B Vacine Aged Out No lo nger eligible based on patient's age to complete this topic RSV Immunization Patients Un nahum 20 months Aged Out No longer eligible b ased on patient's age to complete this topic Varicella Vaccines Aged Out No longer eligible based on patient's age to complete this topic
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
--- OUTSIDE RECORDS SUMMARY | 2025-02-02 06:43 | XMS_ITS | Encounter Summary ---
Author Organization [employer] Address [address] [facility] [address] [place] [address] Care Team Providers Care Director Digital Sales Name Role Phone Dee Dee Rueda MD Primary Care Provide r Reason for Visit * Reason Comments Med Refill Encounter Details Date Type Department Care Team ([facility] st Contact Info) Description 08/12/2024 Refill [facility] [address] [place], [place] [phone] Dee Dee Rueda MD [address] [place] [address] Moderate dementia with other behavioral disturbance, unspecified [...] Description 02/12/2025 1:45 PM EDT Office Visit [facility] [address] [place] [phone] Dee Dee Rueda MD [address] [place] [phone] documented as of this encounter Visit Diagnoses Diagnosis Moderate dementia with other behavioral disturbance, unspecified dementia type (CMS/HCC) documented in this encounter Additional Health Concerns Assessment Noted Time PHQ-9 Depression Total Score: 0 05/05/20 24 2:30 PM EDT documented as of this encounter Care Teams Director Digital Sales Relationship Specialty Start Date End Date Dee Dee Rueda MD [address] [place] [phone] PCP - General Family Medicine 09/07/22 documented as of this encounter
--- OUTSIDE RECORDS SUMMARY | 2025-02-02 06:43 | XMS_ITS | Encounter Summary ---
Author Organization [employer] Address [address] [facility] [place] [address] Care Team Providers Care Tableau Developer Name Role Phone Dee Dee Rueda MD Primary Care Provide r Reason for Visit * Reason Comments Med Refill Encounter Details Date Type Department Care Team ([facility] st Contact Info) Description 10/08/2024 Refill [facility] [address] [place] [address] Comfort Marrero, MARIO [address] [place] [address] Acquired hypothyroidism Social History Tobacco Use Types [...] Description 02/12/2025 1:45 PM EDT Office Visit [facility] [address] [place] [phone] Dee Dee Rueda MD [address] [place] [phone] documented as of this encounter Visit Diagnoses Diagnosis Acquired hypothyroidism Unspecified hypothyroidism documented in this encounter Additional Health Concerns Assessment Noted Time PHQ-9 Depression Total Score: 0 05/05/20 24 2:30 PM EDT documented as of this encounter Care Teams Tableau Developer Relationship Specialty Start Date End Date Dee Dee Rueda MD [address] [place] [phone] PCP - General Family Medicine 09/07/22 documented as of this encounter
--- OUTSIDE RECORDS SUMMARY | 2025-02-02 06:43 | XMS_ITS | Encounter Summary ---
Author Organization [employer] Address [address] [facility] 7t [place] [address] Care Team Providers Care Nascar Pit Crew Person Name Role Phone Dee Dee Rueda MD Primary Care Provide r Reason for Visit * Reason Comments Med Refill Encounter Details Date Type Department Care Team ([facility] st Contact Info) Description 09/08/2024 Refill [facility] [address] [place] [address] Dee Dee Rueda MD [address] [place] [address] Moderate dementia with other behavioral disturbance, unspecified [...] Description 02/12/2025 1:45 PM EDT Office Visit [facility] [address] [place] [phone] Dee Dee Rueda MD [address] [place] [phone] documented as of this encounter Visit Diagnoses Diagnosis Moderate dementia with other behavioral disturbance, unspecified dementia type (CMS/HCC) documented in this encounter Additional Health Concerns Assessment Noted Time PHQ-9 Depression Total Score: 0 05/05/20 24 2:30 PM EDT documented as of this encounter Care Teams Nascar Pit Crew Person Relationship Specialty Start Date End Date Dee Dee Rueda MD [address] [place] [phone] PCP - General Family Medicine 09/07/22 documented as of this encounter
--- OUTSIDE RECORDS SUMMARY | 2025-02-02 06:43 | XMS_ITS | Encounter Summary ---
Author Organization [employer] Address [address] [facility] [address] [place] [address] Care Team Providers Care Hplc Chemist Name Role Phone Dee Dee Rueda MD Primary Care Provide r Reason for Visit * Reason Comments Med Refill Encounter Details Date Type Department Care Team ([facility] st Contact Info) Description 10/09/2024 Refill [facility] [address] [place] [address] Comfort Marrero, MARIO [address] [place] [address] Acquired hypothyroidism Social History Tobacco Use Types [...] Description 02/12/2025 1:45 PM EDT Office Visit [facility] [address] [place] [phone] Dee Dee Rueda MD [address] [place] [phone] documented as of this encounter Visit Diagnoses Diagnosis Acquired hypothyroidism Unspecified hypothyroidism documented in this encounter Additional Health Concerns Assessment Noted Time PHQ-9 Depression Total Score: 0 05/05/20 24 2:30 PM EDT documented as of this encounter Care Teams Hplc Chemist Relationship Specialty Start Date End Date Dee Dee Rueda MD [address] [place] [phone] PCP - General Family Medicine 09/07/22 documented as of this encounter
--- NOTE | 2025-02-02 07:26 | ED.FALL ---
HPI - Fall General Chief Complaint: Fall Stated Complaint: Fall Time Seen by Provider: 02/02/25 06:41 Source: patient, EMS and road contractor Mode of arrival: EMS Limitations: language barrier (danish speaking) History of Present Illness ED Provider: RISHABH COOL PA-C HPI Narrative: 85 year old American speaking female with pmhx significant for anxiety, breast cancer s/p L mastectomy, colitis, GIB, hypothyroidism, and mild cognitive impairment presents to the ED today via EMS from elderly housing complex for evaluation of fall last night. Per patient, she was found while walking around her housing facility. She believes she fell in the hallway . She is unsure if she struck her head or lost consciousness. On chart review, it does not appear that patient is on anticoagulation. she tells me she typically ambulates with a walker at baseline. She did not have her walker with her when she was found. She states a ILLUSIONIST stays with her 24/06. She has no complaints at present. She denies headache, dizziness, vision changes, chest pain, palpitations, sob, wheezing, pelvic/neck/back pain, LE pain/swelling. Patient is well known to this ED and appears to be at her baseline. Related Data Home Medications ?Medication ?Instructions ?Recorded ?Confirmed levothyroxine 75 mcg tablet 75 mcg PO DAILY 06/21/23 10/29/23 docusate sodium 100 mg capsule 100 mg PO BID PRN Constipation 10/29/23 10/29/23 Previous Rx's ?Medication ?Instructions ?Recorded acetaminophen 325 mg tablet 650 mg (2 x 325 mg) PO Q6H PRN 09/27/20 (Athenol) fever or pain #30 tabs meclizine 25 mg tablet 25 mg PO TID PRN dizziness #14 tabs 02/24/23 albuterol sulfate 90 mcg/actuation 2 puff inhalation Q4-6H PRN 03/22/23 aerosol inhaler shortness of breath or wheezing #8.5 grams lansoprazole 30 mg capsule,delayed 30 mg PO DAILY #90 caps 09/16/23 release sucralfate 100 mg/mL oral 10 ml PO BID #420 mL 09/16/23 suspension (Carafate) food supplemt, lactose-reduced 1 ea PO BID #1,422 mL 10/29/23 (Ensure Original oral liquid) diphenhydramine HCl 25 mg capsule 25 mg PO Q6H PRN Allergic Reaction 10/31/23 #15 caps famotidine 20 mg tablet 20 mg PO DAILY #20 tabs 10/31/23 polyethylene glycol 3350 17 gram 17 g PO DAILY #30 ea 10/31/23 oral powder packet (Miralax) quetiapine 25 mg tablet 25 mg PO DAILY@1700 PRN 10/31/23 Anxiety/Restlessness #20 tabs Allergies Allergy/AdvReac Type Severity Reaction Status Date / Time azithromycin [From ZITHROMAX] Allergy Severe GENERIC Verified 02/02/25 05:17 ONLY-SEVERE ABD PAIN, abdominal pain codeine [CODEINE] Allergy Intermediate NAUSEA & Verified 02/02/25 05:17 VOMITING,FAINTED, nausea, vomiting, syncope erythromycin base Allergy Intermediate HIVES, ABD Verified 02/02/25 05:17 [ERYTHROMYCIN BASE] PAIN promethazine [From PHENERGAN] Allergy Intermediate DIZZY / Verified 02/02/25 05:17 NAUSEATED amoxicillin [Prevpac] Allergy Unknown Unknown Verified 02/02/25 05:17 clarithromycin [Prevpac] Allergy Unknown Unknown Verified 02/02/25 05:17 Review of Systems Review of Systems: Yes all other systems are reviewed and are negative PMFSH Past Medical History Attestation statement: The following information was validated with the patient. Source: old records reviewed and nursing notes reviewed Medical History Failure to thrive in adult Hematuria of unknown cause Hx of breast cancer Hypothyroid Arthritis History of anemia History of colitis Dysphagia Weight loss, unintentional GI bleed Hx of syncope Bright red blood per rectum Constipation GERD (gastroesophageal reflux disease) Anxiety Surgical History History of esophagogastroduodenoscopy (EGD) Hx of colonoscopy H/O left mastectomy History of ankle surgery Family History Family History Father No problems noted. 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 have visiting nurse or other home services: Yes Alcohol intake: never Patient Tobacco Use Status: Never used Tobacco Smoked in Last 30 Days: No Use of substances other than those prescribed or required for medical reasons: No Advance Directives: Yes Advance Directives on File: Yes Advance Directives Date on File: 10/20/20 Do you have a plan to hurt others: No Plan service: No Current occupational status: retired Physical Exam Vital Signs: Vital Signs: Last Vital Signs Temp 96.9 F 02/02/25 12:58 Pulse 71 02/02/25 12:58 Resp 18 02/02/25 12:58 BP 170/85 H 02/02/25 12:58 Pulse Ox 97 02/02/25 12:58 O2 Del Method Room Air 02/02/25 12:58 BMI result Body Mass Index 25.9 hypertensive, vitals are otherwise wnl General: NAD Skin: Warm, dry, intact. No rashes or lesions. Head: Normocephalic, atraumatic. no palpable skull fracture or hematoma. no battles sign or raccoon eyes. EENT: Hearing is intact b/l. Conjunctiva clear. PERRLA. EOM intact. Moist mucous membranes.? Neck: Supple without LAD Cardiac: Chest wall symmetric. RRR Lungs: Normal respiratory effort without accessory muscle use. CTA bilaterally.? Abdomen: soft, non-tender, non-distended. No rebound tenderness or guarding. Positive BS x4. Back: No midline spinous or paraspinal tenderness. No step off deformity. Ext: Upper and lower extremities atraumatic, without tenderness, deformity, swelling or erythema. Full ROM intact. Neuro: alert, oriented to person, place, year. Normal speech. no slurred speech or facial droop. Strength 4/5 intact throughout. Sensation intact to light touch. NV intact distally Psych: Appropriate mood and affect. anxious. Course Course Course Narrative: 1938 -- labs/ imaging obtained prior to my assumption of care. CBC without leukocytosis or left shift. No anemia. H&H stable. Chemistry without acute electrolyte abnormality requiring intervention. Kidney function around baseline. No FÁTIMA. Liver function around baseline. Troponin undetectable. EKG showing normal sinus rhythm, rate of 74 beats per minute, no acute ischemic changes or ST elevation. CT head without acute intracranial hemorrhage or skull fracture. CT cervical spine without fracture or subluxation. Cervical collar removed. > will add on TSH with T4, ammonia and CPK. CXR ordered to r/o PNA > UA pending to r/o UTI 0856 -- chest x-ray without infiltrate or consolidation to suggest pneumonia. No effusion. UA without infection. Both TSH and free T4 WNL. ammonia wnl. > will ambulatory trial Patient independently ambulates w/ steady gait assisted by walker. She has a ILLUSIONIST, declining PT eval at this time which I feel is reasonable. She states she is hungry and would like to return home. Given unremarkable work up with patient at her baseline. Patient has remained stable throughout ED visit today. Discussed worrisome signs and symptoms and when to return to the ED. All questions answered at this time. Patient is agreeable with disposition and stable for discharge. junior legal secretary booking EMS transport home. Medical Decision Making Medical Decision Making [facility] Narrative: 85 year old American speaking female with pmhx significant for anxiety, breast cancer s/p L mastectomy, colitis, GIB, hypothyroidism, and mild cognitive impairment presents to the ED today via EMS from [facility] for evaluation of fall last night. Hypertensive, vitals are otherwise wnl. she is anxious appearing however in NAD. Differential diagnosis includes anemia, electrolyte abnormality, encephalitis, dehydration, rhabdo, acute UTI, pneumonia Plan for labs, ekg, UA, imaging, re-evaluation. Differential Diagnosis Differential Diagnoses: The differential diagnosis associated with the presentation includes as above. Admission/Observation Consideration of admission/observation: Escalation of care including admission/observation considered Lab Data [facility] Lab Attestation statement: I reviewed the patient's lab results. as above. 02/02/25 05:53 02/02/25 05:53 Labs: Lab Results 02/02/25 02/02/25 02/02/25 Range/Units 05:53 07:41 08:49 WBC 5.8 (4.8-10.8) X10*3/uL RBC 4.38 (4.20-5.50) X10*6/uL Hgb 12.6 (12.0-16.0) g/dl Hct 36.8 L (37.0-47.0) % MCV 84.0 (80.0-98.0) fL MCH 28.8 (27.0-33.0) pg MCHC 34.2 (31.0-35.0) g/dl RDW 15.3 (11.0-16.0) % Plt Count 216 (160-400) X10*3/uL MPV 8.9 L (9.4-12.3) fL Immature Gran % (Auto) 0.3 (0.0-0.4) % Neut % (Auto) 60.1 (45-73) % Lymph % (Auto) 25.2 (20-40) % [place] % (Auto) 10.5 (2-11) % Eos % (Auto) 3.4 (0-4) % Baso % (Auto) 0.5 (0-2) % Lymph # (Auto) 1.5 (1.2-4.9) X10*3/uL [place] # (Auto) 0.6 (0.1-1.2) X10*3/uL Eos # (Auto) 0.2 (0.0-0.4) X10*3/uL Baso # (Auto) 0.0 (0.0-0.2) X10*3/uL Abs Immat Gran (auto) 0.02 (0.00-0.03) X10*3/uL Absolute Neuts (auto) 3.5 (2.0-8.3) x10*3/uL Absolute Nucleated RBC 0.000 (0.0-0.012) X10*3/uL Nucleated RBC % (auto) 0.0 (0.0-0.2) /100WBC Sodium 143 (135-145) mmol/L Potassium 3.9 (3.3-5.1) mmol/L Chloride 108 (96-108) mmol/L Carbon Dioxide 25 (22-29) mmol/L Anion Gap 14 (12-20) BUN 17 H (9-16) mg/dL Creatinine 0.87 (0.5-1.4) mg/dL Estim Creat Clear Calc 40.7 Estimated GFR > 60 Random Glucose 104 (60-115) mg/dL Calcium 9.8 (8.4-10.2) mg/dL Total Bilirubin 0.6 (0.0-1.0) mg/dL AST 24 (5-31) U/L ALT 20 (0-31) U/L Alkaline Phosphatase 68 (39-117) U/L Ammonia 37 (13-55) umol/L Troponin I High Sens < 2.7 (<3.5-17.0) ng/L C-Reactive Protein 0.45 (< or = 0.50) mg/dL Total Protein 7.6 (6.5-8.0) g/dL Albumin 3.9 (3.5-5.0) g/dL TSH 3.77 (0.32-4.0) uIU/mL Free T4 1.07 (0.71-1.85) ng/dL Urine Color Yellow Urine Appearance Clear Urine pH 7.5 (5.0-9.0) Ur Specific [place] 1.010 (1.005-1.025) Urine Protein Negative (Neg-Trace) mg/dL Urine Glucose (UA) Negative (Negative) mg/dL Urine Ketones Negative (Negative) mg/dL Urine Blood Negative (Negative) Urine Nitrite Negative (Negative) Ur Leukocyte Esterase Trace H (Negative) Urine RBC 0-2 (0-2) /HPF Urine WBC 0-5 (0-5) /HPF Ur Squamous Epith Cells 3-5 (0-2) /HPF Urine Bacteria None Seen (None Seen) Hyaline Casts 0-2 (0-2) /LPF Independent Interpretation I performed an independent interpretation of an: EKG and CT Scan Interpretation: CT head/brain without bleed or mass CT cervical spine w/o fracture or subluxation EKG showing normal sinus rhythm, rate 74 beats per minute, QT 386, QTC 428, no acute ischemic changes or ST elevation Radiology Impression Discussion of test interpretation with radiology: I have reviewed the radiologist's reading. Radiologist Impression: Procedure(s): CT cervical spine wo IV con Accession Number(s): [id number] cc: Kathie Aceves MD; Physician,Unknown ~ Report Number: [id number]: Total DLP = 263.00 mGy-cm CLINICAL HISTORY: unwitnessed fall CT cervical spine without contrast Comparison: None Findings: Normal vertebral body alignment. Multilevel right-sided facet hypertrophy. No acute fractures or dislocations. No acute findings on limited view of the intracranial contents. Soft tissues of the neck are normal. Similar biapical consolidation versus scarring. IMPRESSION: No evidence of acute fracture or malalignment. This document has been electronically signed by: Evon Angel MD on 02/02/2025 06:30:38 Procedure(s): CT head/brain wo IV con Accession Number(s): [id number] cc: Kathie Aceves MD; Physician,Unknown ~ Report Number: [id number]: Total DLP = 624.00 mGy-cm CLINICAL HISTORY: unwitnessed fall CT head without contrast Comparison: CT/SR - CT HEAD/BRAIN WO IV CON - 10/29/23 10:29 EST Findings: No intra-axial mass, midline shift, hydrocephalus, or acute hemorrhage. Mild subcortical and periventricular white matter hypodensity suggesting chronic microangiopathy. More focal area of hypodensity within the left temporal lobe anterior to the mildly dilated temporal horn of the left lateral ventricle similar to the prior exams and possibly an area of old injury or infarct. The visualized paranasal sinuses and mastoid air cells are normal. The orbits are within normal limits. There is no acute fracture. IMPRESSION: 1. No acute intracranial hemorrhage or skull fracture. 2. 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 This document has been electronically signed by: Evon Angel MD on 02/02/2025 06:25:46 Independent Historian Clinical information obtained from an independent historian. History obtained from or confirmed by: EMS External Record Review External record reviewed: Inpatient record, Office record, Outpatient record, Prior outpatient labs, Prior outpatient radiology, Primary care record and Outside ED record Social Determinants Patient?s care significantly limited by Social Determinants of Health including: Other Social Determinant of Health Critical Care Time Critical Care Time Critical Care Time: No Discharge Plan Discharge Clinical Impression: Fall Patient Disposition: Home, Self-Care Instructions: Fall Prevention (ED) Additional Instructions: You were evaluated in the ED following a fall today. Your blood work is reassuring. The CT scans of your head/ neck are normal. Your chest xray does not demonstrate pneumonia. Your urine is not infected. Please return to the ED with any new or worsening symptoms. In the case of an emergency call 911. Prescriptions: No Action acetaminophen [Athenol] 325 mg tablet 650 mg PO Q6H PRN (Reason: fever or pain) Qty: 30 0RF meclizine 25 mg tablet 25 mg PO TID PRN (Reason: dizziness) Qty: 14 0RF Ensure Original Liquid 1 ea PO BID Qty: 1422 3RF docusate sodium 100 mg capsule 100 mg PO BID PRN (Reason: Constipation) diphenhydramine HCl 25 mg Capsule 25 mg PO Q6H PRN (Reason: Allergic Reaction) Qty: 15 0RF famotidine 20 mg Tablet 20 mg PO DAILY Qty: 20 0RF quetiapine 25 mg Tablet 25 mg PO DAILY@1700 PRN (Reason: Anxiety/Restlessness) Qty: 20 0RF polyethylene glycol 3350 [Miralax] 17 gram powder in packet 17 g PO DAILY Qty: 30 0RF Rx Instructions: Hold for diarrhea albuterol sulfate 90 mcg/actuation HFA aerosol inhaler 2 puff inhalation Q4-6H PRN (Reason: shortness of breath or wheezing) Qty: 8.5 0RF levothyroxine 75 mcg tablet 75 mcg PO DAILY lansoprazole 30 mg capsule,delayed release(DR/EC) 30 mg PO DAILY Qty: 90 2RF sucralfate [Carafate] 100 mg/mL suspension 10 ml PO BID Qty: 420 2RF Referrals: Dee Dee Rueda MD [Primary Care Provider] - Interventions: ED Discharge Assessment Last Done: 02/02/25 12:58 Discharge Date/Time: 02/02/25 12:59 Print Language: American
[2025-02-02 08:10] LABS: Appearance Urine Clear; Color Urine Yellow; Glucose Urine UA Negative (Negative); Leukocyte Esterase Urine Trace (Negative); Nitrite Urine Negative (Negative); PH 7.5 (5.0-9.0); UMIC TRIGGER UACC YES; Urine Blood Negative (Negative); Urine Ketones Negative (Negative); Urine Protein Negative (Neg-Trace)
[2025-02-02 08:12] LABS: Bacteria Urine None Seen (None Seen); Hyaline Casts Urine 0-2 /LPF (0-2); RBC Urine 0-2 /HPF (0-2); WBC Urine 0-5 /HPF (0-5)
[2025-02-02 08:23] LABS: C Reactive Protein 0.45 mg/dL (< or = 0.50)
[2025-02-02 08:38] LABS: Free T4 (Free Thyroxine) 1.07 ng/dL (0.71-1.85); Thyroid Stimulating Hormone 3.77 uIU/mL (0.32-4.0)
[2025-02-02 09:03] LABS: Ammonia 37 umol/L (13-55)
[2025-02-02 11:12] VITALS: BP 157/74; PULSE 69; RESP 16; TEMP 36.7; O2SAT 98
[2025-02-02 12:58] VITALS: BP 170/85; PULSE 71; RESP 18; TEMP 36.1; O2SAT 97
== END 2025-02-02 12:59 | disposition home or self-care (01) ==
PROVIDERS: Physician Assistant Medical; Emergency Provider Emergency Medicine; PCP Internal Medicine
DX: S09.90XA Unspecified injury of head, initial encounter (principal); S39.92XA Unspecified injury of lower back, initial encounter; R94.31 Abnormal electrocardiogram [ECG] [EKG]; R41.81 Age-related cognitive decline; R51.9 Headache, unspecified; R07.89 Other chest pain; M54.2 Cervicalgia; W18.30XA Fall on same level, unspecified, initial encounter; Y93.01 Activity, walking, marching and hiking; Y92.099 Unspecified place in other non-institutional residence as the place of occurrence of the external cause; Y99.8 Other external cause status; Z79.899 Other long term (current) drug therapy
CPT/HCPCS: 36415; 70450; 71046; 72125; 80053; 81001; 82140; 84439; 84443; 84484; 85025; 86140; 93005; 99284; 99285

== ENCOUNTER → 2025-02-02 05:59 | Outpatient (BNV) | payer OTHER, SELFPAY | PROVIDERS: Emergency Provider Emergency Medicine; Visit Provider Radiology Diagnostic Radiology | DX: J84.89 Other specified interstitial pulmonary diseases (principal); R41.0 Disorientation, unspecified; W19.XXXA Unspecified fall, initial encounter | CPT/HCPCS: 70450; 71046; 72125 ==

== ENCOUNTER → 2025-02-02 06:03 | Outpatient (BNV) | payer OTHER, SELFPAY | PROVIDERS: Emergency Provider Emergency Medicine; Visit Provider Internal Medicine Cardiovascular Disease | DX: I25.2 Old myocardial infarction (principal) | CPT/HCPCS: 93010 ==

== ENCOUNTER 2025-02-06 10:16 | Emergency (ER) | payer OTHER, SELFPAY ==
--- NOTE | ~2025-02-06 | CT_ITS ---
CLINICAL HISTORY: fall, +head strike CT cervical spine without contrast Comparison: 02/02/2025 Findings: There is straightening of the normal cervical lordosis. No fracture or acute malalignment. Sclerotic focus along the posterior aspect of T1 Mild multilevel degenerative changes with disc space narrowing throughout the cervical spine. The facet joints are normally imbricated. No prevertebral soft tissue edema. Lung apicies demonstrate no acute process. Biapical scarring noted Impression: Mild degenerative changes without evidence of acute fracture or acute malalignment. This document has been electronically signed by: Liam Smith MD on 02/06/2025 11:41:49
--- NOTE | ~2025-02-06 | CT_ITS ---
CLINICAL HISTORY: fall, +head strike CT head without contrast Comparison: CT/SR - CT HEAD/BRAIN WO IV CON - 02/02/25 05:[address]/REG/AK/SR - CT HEAD/BRAIN WO IV CON - 02/24/24 09:57 EDT Findings: No evidence of acute territorial infarct. There is patchy low density in the periventricular and subcortical white matter. 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 No hydrocephalus. No hemorrhage, mass effect, mass lesion or midline shift. No abnormal extra-axial fluid. No calvarial fracture. Paranasal sinuses and mastoid air cells are clear. Impression: No evidence of acute process. Ischemic microangiopathy, prior infarct and diffuse volume loss. This document has been electronically signed by: Liam Smith MD on 02/06/2025 11:40:07
--- NOTE | 2025-02-06 10:19 | ED.FALL ---
HPI - Fall General Chief Complaint: Fall Stated Complaint: UNWIT FALL,HIT HEAD,+CCOLLAR,UNK TIME PER EMS Time Seen by Provider: 02/06/25 10:18 Source: patient, EMS, RN notes reviewed and other (MAJOR ACCOUNT REPRESENTATIVE) Mode of arrival: EMS Limitations: no limitations History of Present Illness ED Provider: Kayley Knott PA-C HPI Narrative: 85 year old Sinhala speaking female with pmhx significant for anxiety, breast cancer s/p L mastectomy, colitis, GIB, hypothyroidism, and mild cognitive impairment presents to the ED today via EMS from [facility] for evaluation after a fall. Patient reports that she was in her kitchen when she fell. Patient states that she is unsure what caused her to fall however denies any chest pain or shortness for breath. No dizziness prior to the fall. Patient is alert and oriented x1 which appears to be her baseline. She is states that she lives home alone, with visiting nurses that come daily. She uses a walker at baseline. MD complaint: fall Onset (ago): unknown Fall witnessed: no Place fall occurred: home Loss of consciousness: none Symptoms prior to fall: none Context: tripped/slipped Related Data Home Medications ?Medication ?Instructions ?Recorded ?Confirmed levothyroxine 75 mcg tablet 75 mcg PO DAILY 06/21/23 10/29/23 docusate sodium 100 mg capsule 100 mg PO BID PRN Constipation 10/29/23 10/29/23 Previous Rx's ?Medication ?Instructions ?Recorded acetaminophen 325 mg tablet 650 mg (2 x 325 mg) PO Q6H PRN 09/27/20 (Athenol) fever or pain #30 tabs meclizine 25 mg tablet 25 mg PO TID PRN dizziness #14 tabs 02/24/23 albuterol sulfate 90 mcg/actuation 2 puff inhalation Q4-6H PRN 03/22/23 aerosol inhaler shortness of breath or wheezing #8.5 grams lansoprazole 30 mg capsule,delayed 30 mg PO DAILY #90 caps 09/16/23 release sucralfate 100 mg/mL oral 10 ml PO BID #420 mL 09/16/23 suspension (Carafate) food supplemt, lactose-reduced 1 ea PO BID #1,422 mL 10/29/23 (Ensure Original oral liquid) diphenhydramine HCl 25 mg capsule 25 mg PO Q6H PRN Allergic Reaction 10/31/23 #15 caps famotidine 20 mg tablet 20 mg PO DAILY #20 tabs 10/31/23 polyethylene glycol 3350 17 gram 17 g PO DAILY #30 ea 10/31/23 oral powder packet (Miralax) quetiapine 25 mg tablet 25 mg PO DAILY@1700 PRN 10/31/23 Anxiety/Restlessness #20 tabs Allergies Allergy/AdvReac Type Severity Reaction Status Date / Time azithromycin [From ZITHROMAX] Allergy Severe GENERIC Verified 02/06/25 10:24 ONLY-SEVERE ABD PAIN, abdominal pain codeine [CODEINE] Allergy Intermediate NAUSEA & Verified 02/02/25 05:17 VOMITING,FAINTED, nausea, vomiting, syncope erythromycin base Allergy Intermediate HIVES, ABD Verified 02/02/25 05:17 [ERYTHROMYCIN BASE] PAIN promethazine [From PHENERGAN] Allergy Intermediate DIZZY / Verified 02/02/25 05:17 NAUSEATED amoxicillin [Prevpac] Allergy Unknown Unknown Verified 02/02/25 05:17 clarithromycin [Prevpac] Allergy Unknown Unknown Verified 02/02/25 05:17 Review of Systems Review of Systems: Yes all other systems are reviewed and are negative Constitutional: Constitutional: Reports as per HPI [facility] Past Medical History Medical History Failure to thrive in adult Hematuria of unknown cause Hx of breast cancer Hypothyroid Arthritis History of anemia History of colitis Dysphagia Weight loss, unintentional GI bleed Hx of syncope Bright red blood per rectum Constipation GERD (gastroesophageal reflux disease) Anxiety Surgical History History of esophagogastroduodenoscopy (EGD) Hx of colonoscopy H/O left mastectomy History of ankle surgery Family History Family History Father No problems noted. 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 have visiting nurse or other home services: Yes Alcohol intake: never Patient Tobacco Use Status: Never used Tobacco Smoked in Last 30 Days: No Use of substances other than those prescribed or required for medical reasons: No Advance Directives: Yes Advance Directives on File: Yes Advance Directives Date on File: 10/20/20 service: No Current occupational status: retired Physical Exam Vital Signs: Vital Signs: Last Vital Signs Temp 98.2 F 02/06/25 15:34 Pulse 67 02/06/25 15:34 Resp 18 02/06/25 15:34 BP 143/66 H 02/06/25 15:34 Pulse Ox 95 02/06/25 15:34 O2 Del Method Room Air 02/06/25 15:34 BMI result Body Mass Index 26.3 Const: General: cooperative, comfortable and no acute distress Orientation/consciousness: oriented to person and oriented to place Limitations: no limitations HEENT: Head: Yes normal to inspection, Yes normocephalic and Yes atraumatic Ears: hearing grossly normal bilaterally and TM's normal bilaterally (No hemotympanum) General nose exam: Normal external nose present Face and sinus: Yes normal facial exam Mouth: Normal oral and palatal mucosa present, oropharynx normal and moist mucous membranes Throat: Yes posterior oropharynx normal Eyes: General: appearance normal, both eyes and all related structures Eyelids: Yes eyelids normal Conjunctivae: conjunctivae normal Sclerae: sclerae normal Pupils: Equal, round and reactive pupils present EOM: EOMs intact bilaterally Neck: Neck: Yes normal visual inspection, Yes full ROM and Yes no lymphadenopathy Lymphatic: no lymphadenopathy noted Chest: Chest palpation & inspection: normal inspection of the chest Resp: Effort & Inspection: normal respiratory effort and able to speak in complete sentences Auscultation: clear to auscultation bilaterally, no crackles, no rales, no rhonchi and no wheezes Cardio: Rate: regular rate Rhythm: regular rhythm Heart sounds: S1 normal heart sound present and S2 normal heart sound present GI: Other: Abdomen is soft, nontender, nondistended Inspection: Yes normal to inspection : General: Yes no CVA tenderness Back/Spine/Pelvis: Back: no CVA tenderness Thoracic/Lumbar Spine: thoracic and lumbar spine normal to inspection Skin: General skin exam: no rashes or lesions noted Trauma: no lacerations or abrasions Wounds: no wounds Neuro: General: oriented to person, oriented to place and Unable to assess gait Cranial nerves: Yes CN's II-XII intact bilaterally and Yes Equal, round and reactive pupils present Cognition (Neuro): normal cognition Gait exam (Neuro): Unable to assess gait Motor exam (neuro): 5/5 motor strength present throughout and Pronator motor function not present Coordination: [id number] test normal Extrem: Other: No calf tenderness. No pedal edema. No obvious bony deformity or swelling. General: Yes normal to inspection Right upper extremity: normal to inspection Left upper extremity: normal to inspection Right lower extremity: normal to inspection Left lower extremity: normal to inspection Course Reevaluation(s) Reevaluation #1: Repeat troponin flat. Patient is accompanied by her MAJOR ACCOUNT REPRESENTATIVE. Extensive conversation with daughter and patient with linoleum printer at bedside. I discussed at length this is this is her second fall in the last week. MAJOR ACCOUNT REPRESENTATIVE reports that patient does have visiting nurses that whenever daughter is not around the visiting nurses typically there. However MAJOR ACCOUNT REPRESENTATIVE states that she had to run out quickly to the store, and upon the MAJOR ACCOUNT REPRESENTATIVE returning, there were. MAJOR ACCOUNT REPRESENTATIVE reports that the neighbor had called as they heard the patient yelling for help. She states that they have a nurse that stays the night with her. She states that patient does use her walker however daughter reports that often times she does not use it and still walks around the house which causes her to fall. She states that she has had multiple falls that is caused by her not using her walker which [id number] states was the likely reason for her fall today. MAJOR ACCOUNT REPRESENTATIVE reports that patient was behaving at her baseline, no concerns for any mentation changes. She is neurologically intact. No focal deficits on examination. Patient will be seen by physical therapy and case management for safe disposition. Physician observation initiated. Time: 13:36 Reevaluation #2: Called and spoke to patient's HCP on file, Erich, and states that his mother had , and the MAJOR ACCOUNT REPRESENTATIVE has been over stepping boundaries with patient. Healthcare proxy brings up conversation he has had with MAJOR ACCOUNT REPRESENTATIVE - Nataliya, stating of the MAJOR ACCOUNT REPRESENTATIVE has discussed transferring over some belongings, and healthcare proxy is concerned that there are some financial pulls that the MAJOR ACCOUNT REPRESENTATIVE may be after. I discussed with healthcare proxy overall workup today, and will keep son informed. I discussed with son that patient needs to be evaluated by Physical therapy and we will continue to follow with case management. Given patient does have some baseline dementia, she would benefit from a psych eval to ensure if we need to invoke healthcare proxy decision making. This was placed. Physician observation continued pending PT Case Management as well as psychiatric eval. Time: 15:46 Medical Decision Making Medical Decision Making MDM Narrative: This is a 85-year-old female who presents emergency department for evaluation of fall. Patient reports that she fell backwards and hit her head sometime last night, unsure when, patient alert and oriented x1. She is not on anticoagulation. On arrival, patient mildly hypertensive at 164/80, all other vital signs within normal limits. She is speaking in full sentences under no acute distress. She is currently in a cervical collar that was placed by EMS. She has no current pain. It is unclear what caused her to father for will obtain labs to rule out any electrolyte derangement, ACS, rhabdomyolysis, also ordered CT head and neck to rule out ICH, and cervical fracture or subluxation. Differential Diagnosis Differential Diagnoses: The differential diagnosis associated with the presentation includes See above Admission/Observation Consideration of admission/observation: Escalation of care including admission/observation considered Lab Data [place] Lab Attestation statement: I reviewed the patient's lab results. No leukocytosis, stable H&H, chemistry with no significant electrolyte derangement. No evidence of FÁTIMA. Troponin 1st 4.7, repeat 2.8. 02/06/25 10:40 02/06/25 10:40 Labs: Lab Results 02/06/25 02/06/25 02/06/25 Range/Units 10:40 12:56 15:17 WBC 4.8 (4.8-10.8) X10*3/uL RBC 4.48 (4.20-5.50) X10*6/uL Hgb 12.9 (12.0-16.0) g/dl Hct 38.0 (37.0-47.0) % MCV 84.8 (80.0-98.0) fL MCH 28.8 (27.0-33.0) pg MCHC 33.9 (31.0-35.0) g/dl RDW 15.8 (11.0-16.0) % Plt Count 189 (160-400) X10*3/uL MPV 9.3 L (9.4-12.3) fL Immature Gran % (Auto) 0.0 (0.0-0.4) % Neut % (Auto) 56.9 (45-73) % Lymph % (Auto) 30.3 (20-40) % [place] % (Auto) 10.9 (2-11) % Eos % (Auto) 1.7 (0-4) % Baso % (Auto) 0.2 (0-2) % Lymph # (Auto) 1.5 (1.2-4.9) X10*3/uL [place] # (Auto) 0.5 (0.1-1.2) X10*3/uL Eos # (Auto) 0.1 (0.0-0.4) X10*3/uL Baso # (Auto) 0.0 (0.0-0.2) X10*3/uL Abs Immat Gran (auto) 0.00 (0.00-0.03) X10*3/uL Absolute Neuts (auto) 2.7 (2.0-8.3) x10*3/uL Absolute Nucleated RBC 0.000 (0.0-0.012) X10*3/uL Nucleated RBC % (auto) 0.0 (0.0-0.2) /100WBC Sodium 142 (135-145) mmol/L Potassium 4.1 (3.3-5.1) mmol/L Chloride 109 H (96-108) mmol/L Carbon Dioxide 26 (22-29) mmol/L Anion Gap 11 L (12-20) BUN 17 H (9-16) mg/dL Creatinine 0.92 (0.5-1.4) mg/dL Estim Creat Clear Calc 38.7 Estimated GFR 58 Random Glucose 97 (60-115) mg/dL Calcium 9.7 (8.4-10.2) mg/dL Magnesium 2.0 (1.6-2.6) mg/dL Total Bilirubin 0.5 (0.0-1.0) mg/dL Direct Bilirubin 0.2 (0.0-0.5) mg/dL AST 24 (5-31) U/L ALT 21 (0-31) U/L Alkaline Phosphatase 69 (39-117) U/L Total Creatine Kinase 62 (26-140) U/L Troponin I High Sens 4.7 D 2.8 (<3.5-17.0) ng/L Total Protein 7.7 (6.5-8.0) g/dL Albumin 3.9 (3.5-5.0) g/dL Urine Color Yellow Urine Appearance Turbid Urine pH 8.0 (5.0-9.0) Ur Specific [place] 1.015 (1.005-1.025) Urine Protein Negative (Neg-Trace) mg/dL Urine Glucose (UA) Negative (Negative) mg/dL Urine Ketones Negative (Negative) mg/dL Urine Blood Negative (Negative) Urine Nitrite Negative (Negative) Ur Leukocyte Esterase Trace H (Negative) Urine RBC 0-2 (0-2) /HPF Urine WBC 0-5 (0-5) /HPF Ur Squamous Epith Cells 0-2 (0-2) /HPF Urine Bacteria Trace (None Seen) Hyaline Casts 0-2 (0-2) /LPF Influenza Type A (PCR) NEGATIVE (Negative) Influenza Type B (PCR) NEGATIVE (Negative) RSV RNA Qual (PCR) NEGATIVE (Negative) SARS-CoV-2 RNA (RT-PCR) NEGATIVE (Negative) Independent Interpretation I performed an independent interpretation of an: EKG Interpretation: EKG normal sinus rhythm at a ventricular rate of 71 beats per minute, RI interval 170, QT QTC 396/430, no ST elevation or depression. Radiology Impression Discussion of test interpretation with radiology: I have reviewed the radiologist's reading. Radiologist Impression: Report Number: [id number]: Total DLP = 274.83 mGy-cm CLINICAL HISTORY: fall, +head strike CT cervical spine without contrast Comparison: 02/02/2025 Findings: There is straightening of the normal cervical lordosis. No fracture or acute malalignment. Sclerotic focus along the posterior aspect of T1 Mild multilevel degenerative changes with disc space narrowing throughout the cervical spine. The facet joints are normally imbricated. No prevertebral soft tissue edema. Lung apicies demonstrate no acute process. Biapical scarring noted Impression: Mild degenerative changes without evidence of acute fracture or acute malalignment. This document has been electronically signed by: Liam Smith MD on 02/06/2025 11:41:49 Dictated By: Liam Smith MD Findings: No evidence of acute territorial infarct. There is patchy low density in the periventricular and subcortical white matter. 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 No hydrocephalus. No hemorrhage, mass effect, mass lesion or midline shift. No abnormal extra-axial fluid. No calvarial fracture. Paranasal sinuses and mastoid air cells are clear. Impression: No evidence of acute process. Ischemic microangiopathy, prior infarct and diffuse volume loss. This document has been electronically signed by: Liam Smith MD on 02/06/2025 11:40:07 Dictated By: Liam Smith MD Discharge Plan Discharge Clinical Impression: Fall, Closed head injury Patient Disposition: Still a Patient Prescriptions: No Action acetaminophen [Athenol] 325 mg tablet 650 mg PO Q6H PRN (Reason: fever or pain) Qty: 30 0RF meclizine 25 mg tablet 25 mg PO TID PRN (Reason: dizziness) Qty: 14 0RF Ensure Original Liquid 1 ea PO BID Qty: 1422 3RF docusate sodium 100 mg capsule 100 mg PO BID PRN (Reason: Constipation) diphenhydramine HCl 25 mg Capsule 25 mg PO Q6H PRN (Reason: Allergic Reaction) Qty: 15 0RF famotidine 20 mg Tablet 20 mg PO DAILY Qty: 20 0RF quetiapine 25 mg Tablet 25 mg PO DAILY@1700 PRN (Reason: Anxiety/Restlessness) Qty: 20 0RF polyethylene glycol 3350 [Miralax] 17 gram powder in packet 17 g PO DAILY Qty: 30 0RF Rx Instructions: Hold for diarrhea albuterol sulfate 90 mcg/actuation HFA aerosol inhaler 2 puff inhalation Q4-6H PRN (Reason: shortness of breath or wheezing) Qty: 8.5 0RF levothyroxine 75 mcg tablet 75 mcg PO DAILY lansoprazole 30 mg capsule,delayed release(DR/EC) 30 mg PO DAILY Qty: 90 2RF sucralfate [Carafate] 100 mg/mL suspension 10 ml PO BID Qty: 420 2RF Print Language: Sinhala
[2025-02-06 10:23] VITALS: BP 118/60; BP 164/80; PULSE 66; PULSE 74; RESP 18; TEMP 36.6; O2SAT 95; O2SAT 96; BMI 26.3
--- NOTE | 2025-02-06 10:27 | ECG_ITS ---
Test Reason : FALL Blood Pressure : */* mmHG Vent. Rate : 71 BPM Atrial Rate : 71 BPM P-R Int : 170 ms QRS Dur : 88 ms QT Int : 396 ms P-R-T Axes : 84 -3 59 degrees QTcB Int : 430 ms Normal sinus rhythm Minimal voltage criteria for LVH, may be normal variant ( R in aVL ) Septal infarct (cited on or before 02-Feb-2025) Abnormal ECG When compared with ECG of 02-Feb-2025 06:03, No significant change was found Referred By: Kayley Knott Electronically Signed By: SHAHRZAD PROCTOR MD
[2025-02-06 10:45] LABS: MANUAL DIFF FLAG NO
[2025-02-06 10:50] LABS: Basophils Percent Auto 0.2 % (0-2); Eosinophils Absolute Auto 0.1 X10*3/uL (0.0-0.4); Eosinophils Percent Auto 1.7 % (0-4); Hemoglobin 12.9 g/dl (12.0-16.0); Lymphocytes Absolute Auto 1.5 X10*3/uL (1.2-4.9); Lymphocytes Percent Auto 30.3 % (20-40); Mean Corpuscular HGB Conc 33.9 g/dl (31.0-35.0); Mean Corpuscular Hemoglobin 28.8 pg (27.0-33.0); Mean Corpuscular Volume 84.8 fL (80.0-98.0); Mean Platelet Volume 9.3 fL (9.4-12.3); Monocytes Absolute Auto 0.5 X10*3/uL (0.1-1.2); Monocytes Percent Auto 10.9 % (2-11); Neutrophils Absolute Auto 2.7 x10*3/uL (2.0-8.3); Neutrophils Percent Auto 56.9 % (45-73); Platelet Count 189 X10*3/uL (160-400); Red Blood Count 4.48 X10*6/uL (4.20-5.50); Red Cell Distribution Width 15.8 % (11.0-16.0); White Blood Count 4.8 X10*3/uL (4.8-10.8)
[2025-02-06 11:04] LABS: Alanine Aminotransferase 21 U/L (0-31); Albumin Level 3.9 g/dL (3.5-5.0); Alkaline Phosphatase 69 U/L (39-117); Anion Gap 11 (12-20); Aspartate Amino Transferase 24 U/L (5-31); Bilirubin Direct 0.2 mg/dL (0.0-0.5); Bilirubin Total 0.5 mg/dL (0.0-1.0); Blood Urea Nitrogen 17 mg/dL (9-16); Calcium 9.7 mg/dL (8.4-10.2); Carbon Dioxide 26 mmol/L (22-29); Chloride 109 mmol/L (96-108); Creatinine Clr Calc Pharmacy 38.7; Estimated Glomerular Filt Rate 58; Glucose Random 97 mg/dL (60-115); Potassium 4.1 mmol/L (3.3-5.1); Sodium 142 mmol/L (135-145); Total Protein 7.7 g/dL (6.5-8.0)
--- OUTSIDE RECORDS SUMMARY | 2025-02-06 11:08 | XMS_ITS | Clinical Summary ---
Author Organization [facility] Address [address] [place] [address] Care Team Providers Care Computer Programmer Chief Name Role Phone Unavailable Primary Care Provider Unavailabl e Source Comments PLEASE NOTE, if this patient is a minor, it may be UNLAWFUL to discuss sensitive information that is contained in these records (such as FAMILY PLANNING, MENTAL HEALTH or SUBSTANCE ABUSE) with the minor patient's parent or other person without the patient's specific authorization.[facility] Social History Tobacco Use Types Packs/Day Years Used Date Smoking Tobacco: Never Assessed Comments Unknown Sex and Gender Information Value Date Recorded Sex Assigned at Not on file Legal Sex Female 1:00 PM PDT Gender Identity Not on file Sexual Orientation Not on file Plan of Treatment Not on file
[2025-02-06 11:10] LABS: Troponin-I High Sensitivity 4.7 ng/L (<3.5-17.0)
[2025-02-06 11:22] LABS: Influenza A PCR NEGATIVE (Negative); Influenza B PCR NEGATIVE (Negative); Resp Syncy Virus RNA Qual PCR NEGATIVE (Negative); SARS COV2 PCR INHOUSE NEGATIVE (Negative)
[2025-02-06 12:49] VITALS: BP 140/64; PULSE 66; RESP 16; TEMP 36.5; O2SAT 99
[2025-02-06 13:30] LABS: Troponin-I High Sensitivity 2.8 ng/L (<3.5-17.0)
--- NOTE | 2025-02-06 14:00 | PC.NURSE ---
Pt present to ED via EMS from home for a fall, unknown what time, pt is not clear on when or how fall happened. Pt believes she slipped and fell with +head hit. ROLL PLUGGER MACHINE OPERATOR found her today and called for EMS. Collared by EMS. Pt has no pain or complaints. Alert but confused (seems to be baseline). Breathing even and unlabored, skin warm and dry. No obvious injuries noted. VSS.
[2025-02-06 15:27] LABS: Appearance Urine Turbid; Color Urine Yellow; Glucose Urine UA Negative (Negative); Leukocyte Esterase Urine Trace (Negative); Nitrite Urine Negative (Negative); Specific Gravity - Urine 1.015 (1.005-1.025); UMIC TRIGGER UACC YES; Urine Blood Negative (Negative); Urine Ketones Negative (Negative); Urine Protein Negative (Neg-Trace)
[2025-02-06 15:32] LABS: Bacteria Urine Trace (None Seen); Hyaline Casts Urine 0-2 /LPF (0-2); RBC Urine 0-2 /HPF (0-2); Squamous Epithelial Cell Urine 0-2 /HPF (0-2); WBC Urine 0-5 /HPF (0-5)
[2025-02-06 15:34] VITALS: BP 143/66; PULSE 67; RESP 18; TEMP 36.8; O2SAT 95
--- NOTE | 2025-02-06 15:42 | MHC.CM.PN ---
CM consult, pt with frequent falls at home. Pt with cognitive impairment, [place] speaking only. This CM contacted pts HCP/grandson Erich at [phone]. Per Erich, he states he is the only family member involved, the pts daughter/his mother is . Erich states the pt has [facility] services 5 days per week, but he is unsure of the amount of hours and has been having a difficult time getting in contact with [facility] to verify. He states he is not entirely pleased with the current APRON TRIMMER as she doesn't communicate with him, and he feels she is over stepping boundaries calling herself the pts daughter. Erich states the pt has [facility] services, but is unsure of the agency. This CM explained that she had 2 falls this week, the ED provider has ordered a PT evaluation which we are awaiting and then can plan accordingly. Erich understands and is in agreement with the current plan. Erich states he would like if she would go to [facility] as he feels she would benefit, however he thinks his grandmother will resist it.
[2025-02-06 18:07] VITALS: BP 144/69; PULSE 63; RESP 16; TEMP 36.4; O2SAT 96
[2025-02-06 23:24] VITALS: BP 136/64; PULSE 67; RESP 18; TEMP 37.1; O2SAT 96
[2025-02-07] MEDS: Melatonin 3 MG TABLET PO (04:11)
[2025-02-07] MEDS: Levothyroxine Sodium 75 MCG TABLET PO (06:38)
[2025-02-07 06:56] VITALS: BP 138/63; PULSE 62; RESP 16; TEMP 36.4; O2SAT 95
--- NOTE | 2025-02-07 07:35 | PHA.MEDREC ---
Pharmacy Consult ? Medication Reconciliation Pharmacy has completed the medication reconciliation. Reviewed med rec done by nursing
[2025-02-07] MEDS: Famotidine 20 MG TABLET PO (09:24)
--- NOTE | 2025-02-07 10:14 | PC.NURSE ---
This RN resumed care of patient at 0900, pt is resting in bed comfortably. She took her morning medications with ease. Awaiting PT/CM at this time. No one has attempted to call and get any information on her at this time as this rn was made aware to not give any information out at this time.
--- NOTE | 2025-02-07 15:52 | PC.NURSE ---
pt sitting up in bed with family at bedside- offers no complaints at this time
[2025-02-07 21:59] VITALS: BP 129/66; PULSE 68; RESP 18; TEMP 36.9; O2SAT 97
--- NOTE | 2025-02-07 22:00 | PC.NURSE ---
pt linens changed, purewick replaced, pt repositioned, pt offers no complaints at this time- call moran within reach, pt awating PT/CM eval
[2025-02-08 01:58] VITALS: BP 143/61; PULSE 63; RESP 18; TEMP 37.2; O2SAT 99
--- NOTE | 2025-02-08 06:15 | PC.NURSE ---
pt awake most of the night, got out of bed one time and walked to nurses station with an even and steady gait. pt redirected back to bed where she remained. no apparent distress noted
[2025-02-08] MEDS: Levothyroxine Sodium 75 MCG TABLET PO (06:21)
[2025-02-08 08:37] VITALS: BP 143/61; PULSE 63; O2SAT 99
--- NOTE | 2025-02-08 10:17 | PC.NURSE ---
Pt ambulatory with walker and PT; pt remains confused as to why she is still here and has tried numerous times to climb OOB; easily redirected; placed closer to RN station for safety; awaiting psychiatry consult
--- NOTE | 2025-02-08 12:15 | P.CNPS_ITS ---
History of Present Illness Date of Service: 02/08/2025 Chief Complaint: UNWIT FALL,HIT HEAD,+CCOLLAR,UNK TIME PER EMS Reason for Consult: capacity Sources of Information: patient interviewed, chart reviewed and crisis/core team assessment reviewed HPI Narrative: Ms. Kiser is a 85 year-old with hx of dementia who was brought [facility] ED after she sustained a fall. Psychiatry asked to complete a capacity assessment. Pt seen in the ED. Pt is looking for a blue. She reports she is currently at the mall and needs a blue to open door of her apartment. She does not know the month, year or date. She is not able to provide any information about her medical hx. [facility] Medical History Failure to thrive in adult Hematuria of unknown cause Hx of breast cancer Hypothyroid Arthritis History of anemia History of colitis Dysphagia Weight loss, unintentional GI bleed Hx of syncope Bright red blood per rectum Constipation GERD (gastroesophageal reflux disease) Anxiety Surgical History History of esophagogastroduodenoscopy (EGD) Hx of colonoscopy H/O left mastectomy History of ankle surgery Diagnostics Vital Signs (24Hr): Vital Signs - 24 hr 02/07/25 21:59 02/08/25 01:58 02/08/25 08:37 Temperature 98.4 F 99.0 F Pulse Rate 68 63 63 Respiratory Rate 18 18 Blood Pressure 129/66 143/61 H 143/61 H Pulse Oximetry 97 99 99 Oxygen Delivery Method Room Air Room Air BMI result Body Mass Index 26.3 Labs 02/06/25 10:40 02/06/25 10:40 Labs: Laboratory Results - last 48 hr 02/06/25 02/06/25 02/06/25 10:40 12:56 15:17 Troponin I High Sens 2.8 Urine Color Yellow Urine Appearance Turbid Urine pH 8.0 Ur Specific [place] 1.015 Urine Protein Negative Urine Glucose (UA) Negative Urine Ketones Negative Urine Blood Negative Urine Nitrite Negative Ur Leukocyte Esterase Trace H Urine RBC 0-2 Urine WBC 0-5 Ur Squamous Epith Cells 0-2 Urine Bacteria Trace Hyaline Casts 0-2 Influenza Type A (PCR) NEGATIVE Influenza Type B (PCR) NEGATIVE RSV RNA Qual (PCR) NEGATIVE SARS-CoV-2 RNA (RT-PCR) NEGATIVE Mental Status Exam Mental Status Exam Narrative: Appearance: wearing hospital gown, thin, appears slightly malnourished Behavior: cooperative PSychomotor: no agitation or retardation noted Speech: clear, normal rate/rhythm/volume, spontaneous TP:confabulation, no derailment TC: looking for keys Mood: good Affect: congruent SI: none HI: none VH/AH: none Delusions: confabulation Insight/judgment: impaired x 2. Memory/cog: alert, oriented only to self, very advanced dementia. Medications Medications Current Medications Famotidine (Famotidine 20 Mg Tablet) 20 mg PO DAILY [facility] Last Admin: 02/08/25 10:17 Dose: Not Given Levothyroxine Sodium (Levothyroxine Sodium 75 Mcg Tablet) 75 mcg PO DAILY@0600 [facility] Last Admin: 02/08/25 06:21 Dose: 75 mcg Melatonin (Melatonin 3 Mg Tablet) 3 mg PO BEDTIME PRN PRN Reason: Sleep Last Admin: 02/07/25 04:11 Dose: 3 mg Allergies Allergies Allergy/AdvReac Type Severity Reaction Status Date / Time azithromycin [From ZITHROMAX] Allergy Severe GENERIC Verified 02/06/25 10:24 ONLY-SEVERE ABD PAIN, abdominal pain codeine [CODEINE] Allergy Intermediate NAUSEA & Verified 02/02/25 05:17 VOMITING,FAINTED, nausea, vomiting, syncope erythromycin base Allergy Intermediate HIVES, ABD Verified 02/02/25 05:17 [ERYTHROMYCIN BASE] PAIN promethazine [From PHENERGAN] Allergy Intermediate DIZZY / Verified 02/02/25 05:17 NAUSEATED amoxicillin [Prevpac] Allergy Unknown Unknown Verified 02/02/25 05:17 clarithromycin [Prevpac] Allergy Unknown Unknown Verified 02/02/25 05:17 Assessment & Plan Assessment & Plan (1) Major neurocognitive disorder: Status: Acute Code(s): F03.90 - Unspecified dementia, unspecified severity, without behavioral disturbance, psychotic disturbance, mood disturbance, and anxiety Plan Ms. Kiser is an 85 year-old woman with hx of dementia, at baseline per daughter oriented only to self for sometime. She has advanced dementia with severe cognitive impairments in orientation, ability to retain information, executive function. She needs 24/7 supervision. 1. Pt does NOT have capacity. Needs 24/7 supervision due to advanced dementia. Total time managing care of this patient today ____ minutes.
--- NOTE | 2025-02-08 12:48 | MHC.CM.ED ---
Patient remains in ER. Physical therapy eval completed. Home services and 24/06 care is recommended. Psych consult completed by [facility] color specialist. Patient does not have capacity to make her own decisions. Spoke with patient's grandson/HCP, Erich, via telephone. Above information relayed to Erich. Patient has an 11 month old son. He is not able to care for patient 24/06 at this time. Erich is agreeable to referral to [facility] until more care can be provided at home. Requesting referral to [facility]. Patient has been there before and the facility is close to his home. Referral made via [facility]. Continue to monitor for d/c needs.
[2025-02-08] MEDS: OLANZapine 5 MG TABLET PO (12:59)
[2025-02-08 16:50] VITALS: BP 142/66; PULSE 66; RESP 16; TEMP 36.6; O2SAT 99
--- NOTE | 2025-02-08 16:51 | PC.NURSE ---
Report called to MILIND Chavez in Overflow for pt boarding; family at pt bedside at this time
--- NOTE | 2025-02-08 17:39 | PC.NURSE ---
This RN assumed care of patient around 16:00, moved to Overflow 3. In person sitter in place. Daughter present. Patient & family are Kyrgyz speaking. Patient recently awoke, non-combative at this time. Care ongoing by this RN.
--- NOTE | 2025-02-08 17:51 | PC.NURSE ---
Regular diet - puree per daughter. Daughter states that the patient eats pureed foods, including baby food at home.
[2025-02-08] MEDS: Melatonin 3 MG TABLET PO (19:27)
[2025-02-08 20:46] VITALS: BP 143/84; PULSE 83; RESP 16; TEMP 36.3; O2SAT 95
[2025-02-09 06:09] VITALS: BP 157/79; PULSE 62; RESP 15; TEMP 36.8; O2SAT 96
--- NOTE | 2025-02-09 06:09 | MHC.EDTECH ---
0600 rounding done ,Patient was incontinent of urine ,care given ,Patient removed Purewick ,Vitals taken .All safety measure in Place .
[2025-02-09] MEDS: Levothyroxine Sodium 75 MCG TABLET PO (06:27)
--- NOTE | 2025-02-09 06:42 | PC.NURSE ---
Pt did not sleep at night. Was awake and speaking incoherently. No apparent distress noted. Monitoring is ongoing.
[2025-02-09] MEDS: Famotidine 20 MG TABLET PO (09:00)
--- NOTE | 2025-02-09 09:02 | MHC.CM.ED ---
Patient remains in ER overflow. [facility] doesn't have a bed to offer patient. Referral broadcasted within 15 miles to all facilities that are contracted with [facility]. Continue to monitor for d/c needs.
--- NOTE | 2025-02-09 11:02 | MHC.EDTECH ---
Assisted patient with personal hygiene. Changed patients gown and linen.
[2025-02-09 14:35] VITALS: BP 139/77; PULSE 64; RESP 14; TEMP 36.8; O2SAT 95
--- NOTE | 2025-02-09 17:24 | MHC.EDTECH ---
pt ate less than 25% of her dinner and had a few sips of letty melissa and apple juice
--- NOTE | 2025-02-09 19:31 | PC.NURSE ---
Addendum entered by Paradise Lantigua RN 02/10/25 06:33: Pt remained restless in bed throughout most of the night but calm and cooperative. Pts needs met at this time, call moran is within reach plan of care onoing Original Note: Assumed care of pt at 1900. Pt is asleep in bed. symmetrical rise and fall of chest as well as unlabored respirations noted. Pts call moran is within reach. plan of care ongoing
[2025-02-09 21:01] VITALS: BP 136/83; PULSE 69; RESP 16; TEMP 36.8; O2SAT 96
[2025-02-10] MEDS: Levothyroxine Sodium 75 MCG TABLET PO (05:58)
[2025-02-10 06:00] VITALS: BP 144/86; PULSE 70; RESP 16; TEMP 36.2; O2SAT 96
--- NOTE | 2025-02-10 07:02 | MHC.CM.ED ---
Addendum entered by Ayala Huerta 02/10/25 10:09: [facility] is able to offer a bed. Attempted to notify patient's grandson/HCP, Erich via telephone at [phone]. Left voicemail requesting return telephone call. Original Note: Patient remains in ER overflow. Velma from [facility] on-site on 02/09 to assess patient. Facility concerned patient received 1 PRN PO Zyprexa on 02/08. No additional PRN's needed. No behaviors noted. Clinical updates sent to PVR. Continue to monitor for d/c needs.
[2025-02-10 08:41] VITALS: BP 118/64; PULSE 84; RESP 18; TEMP 36.5; O2SAT 94
[2025-02-10] MEDS: Famotidine 20 MG TABLET PO (08:44)
--- NOTE | 2025-02-10 11:50 | PC.NURSE ---
pt reports lower abd pain 07/11, pt states she feels like she might be constipated, family at bedside visiting
--- NOTE | 2025-02-10 12:25 | MHC.CM.ED ---
Addendum entered by Ayala Huerta 02/10/25 16:10: Spoke with grandson/HCP, Erich, via telephone. Erich aware and agreeable to d/c to [facility] via BLS tomorrow 02/11 at 9am. Original Note: Insurance auth has been obtained by [facility]. Patient will leave 02/11 at 9am. Sadie BACK booked. [facility] with chart. Patient, Mariluz RN and Kayley FORDE aware. Left voicemail for Erich, via telephone at [phone], requesting return telephone call so discharge plan can be explained. Continue to monitor for d/c needs.
--- NOTE | 2025-02-10 12:35 | PC.NURSE ---
pt did have a medium bowel movement, started out pretty constipated then ended having loose/diarrhea,
[2025-02-10 17:21] VITALS: BP 167/82; PULSE 90; RESP 16; TEMP 36.3; O2SAT 96
--- NOTE | 2025-02-10 17:25 | PC.NURSE ---
pt refusing to eat her dinner
--- NOTE | 2025-02-10 20:41 | MHC.EDTECH ---
pt was incontinent of watery brown bowel movement and was washed up
[2025-02-10 20:43] VITALS: BP 165/83; PULSE 110; RESP 20; TEMP 37.2; O2SAT 96
[2025-02-11] MEDS: Levothyroxine Sodium 75 MCG TABLET PO (05:11)
[2025-02-11 05:27] VITALS: BP 160/81; PULSE 89; RESP 18; TEMP 36.2; O2SAT 96
--- NOTE | 2025-02-11 06:59 | MHC.EDTECH ---
Patient is sleeping now comfortably.
--- NOTE | 2025-02-11 08:03 | PC.NURSE ---
This RN attempted to call [facility] to give repot at [phone]. Receiving facility legal secretary receptionist transferred this RN to receiving unit with no answer.
[2025-02-11] MEDS: Famotidine 20 MG TABLET PO (08:30)
[2025-02-11 09:11] VITALS: BP 152/76; PULSE 98; RESP 16; TEMP 36.3; O2SAT 95
== END 2025-02-11 09:14 ==
PROVIDERS: Physician Assistant Medical; Emergency Provider Emergency Medicine; PCP Internal Medicine
DX: S09.90XA Unspecified injury of head, initial encounter (principal); W18.30XA Fall on same level, unspecified, initial encounter; R29.6 Repeated falls; Z91.81 History of falling; F03.90 Unspecified dementia, unspecified severity, without behavioral disturbance, psychotic disturbance, mood disturbance, and anxiety; Z03.818 Encounter for observation for suspected exposure to other biological agents ruled out; Y93.9 Activity, unspecified; Y92.039 Unspecified place in apartment as the place of occurrence of the external cause; Y99.9 Unspecified external cause status; Z79.899 Other long term (current) drug therapy
CPT/HCPCS: 0241U; 36415; 70450; 72125; 80048; 80076; 81001; 82550; 83735; 84484; 85025; 93005; 97162; 99285

== ENCOUNTER → 2025-02-06 10:26 | Outpatient (BNV) | payer OTHER, SELFPAY | PROVIDERS: Emergency Provider Emergency Medicine; PCP Internal Medicine; Visit Provider Radiology Vascular & Interventional Radiology | DX: S09.90XA Unspecified injury of head, initial encounter (principal); W19.XXXA Unspecified fall, initial encounter | CPT/HCPCS: 70450; 72125 ==

== ENCOUNTER → 2025-02-06 10:27 | Outpatient (BNV) | payer OTHER, SELFPAY | PROVIDERS: Emergency Provider Emergency Medicine; PCP Internal Medicine; Visit Provider Internal Medicine Cardiovascular Disease | DX: I25.2 Old myocardial infarction (principal) | CPT/HCPCS: 93010 ==

== ENCOUNTER → 2025-02-06 11:03 | Outpatient (BNV) | payer OTHER, SELFPAY | PROVIDERS: Emergency Provider Emergency Medicine; PCP Internal Medicine; Visit Provider Social Worker | DX: F03.90 Unspecified dementia, unspecified severity, without behavioral disturbance, psychotic disturbance, mood disturbance, and anxiety (principal) | CPT/HCPCS: 99285 ==

== ENCOUNTER 2025-04-08 10:13 | Emergency (ER) | payer OTHER, SELFPAY ==
--- NOTE | ~2025-04-08 | CT_ITS ---
EXAMINATION: CT HEAD WITHOUT IV CONTRAST HISTORY: unwitnessed fall, geriatric patient history of dementia. TECHNIQUE: Unenhanced helical CT of the head was performed per standard departmental protocol. Coronal and sagittal reformats of the head were also evaluated. One or more of the following techniques was used for dose reduction: Automated exposure control, adjustment of the mA and/or kV according to patient size, use of iterative reconstruction technique. DLP: 621 mGy-cm COMPARISON: Comparison is made with the prior examination dated 02/06/2025. FINDINGS: BRAIN: There is diffuse prominence of the ventricular system and cortical sulci, consistent with atrophy. Periventricular and subcortical white matter hypodensities are noted which are nonspecific, but often seen in the setting of small vessel ischemic disease. There is no mass effect or midline shift. No intra- or extra-axial fluid collections are identified. SINUSES: The visualized paranasal sinuses are clear. There is partial opacification of the left mastoid air cells without change. ORBITS: The visualized orbits are unremarkable. BONES/SOFT TISSUES: The extracranial soft tissues are unremarkable. The calvarium is intact. No suspicious lytic or sclerotic lesions. CT/CT head/brain wo IV con IMPRESSION: No acute intracranial abnormality. Electronically signed by: Harinder Peralta MD 04/08/2025 01:53 PM EDT
--- NOTE | ~2025-04-08 | CT_ITS ---
EXAMINATION: CT CERVICAL SPINE WITHOUT CONTRAST CLINICAL INFORMATION: Unwitnessed fall. COMPARISON: February 06, 2025. TECHNIQUE: Contiguous axial images through the cervical spine using 3 mm collimation with bone and soft tissue algorithm. Sagittal and coronal reformatted images on bone algorithm. DLP: 252.[address] examination was performed using dose optimization techniques as appropriate, variously including the following: *Automated exposure control *Adjustment of mA and/or kV according to patient size (this includes techniques or standardized protocols for targeted exams where dose is matched to indication/reason for exam; i.e. extremities or head) *Use of iterative reconstruction technique FINDINGS: Craniocervical junction is intact with normal alignment. C1 is intact. C2 is intact. C3 is intact. C4 is intact. C5 is intact. C6 is intact. C3 7 is intact. No gross prevertebral compartment hematoma. There is normal alignment between the vertebral bodies and the facet joints. Multilevel facet joint hypertrophy. There is a focal gastric lesion posterior aspect of the T1 vertebral body likely bony island. Bilateral apical lung scarring. Tympanic cavities and mastoid cells are aerated. CT/CT cervical spine wo IV con IMPRESSION: No acute fracture or trauma-related listhesis. Bilateral apical lung scarring. Multilevel spondylosis. Fleischner guidelines were followed. Electronically signed by: Omid Rosa MD 04/08/2025 02:05 PM EDT
[2025-04-08 10:24] VITALS: BP 123/58; BP 76/40; PULSE 70; PULSE 76; RESP 16; TEMP 36.4; O2SAT 98; BMI 23.0
--- NOTE | 2025-04-08 10:29 | ECG_ITS ---
Test Reason : Fall Blood Pressure : */* mmHG Vent. Rate : 74 BPM Atrial Rate : 159 BPM P-R Int : * ms QRS Dur : 82 ms QT Int : 182 ms P-R-T Axes : 69 -9 0 degrees QTcB Int : 202 ms Artifact in tracing Normal sinus rhythm Moderate voltage criteria for LVH, may be normal variant ( R in aVL , Glen product ) T wave abnormality, consider anterior ischemia Abnormal ECG When compared with ECG of 06-Feb-2025 10:31, Nonspecific T wave abnormality now evident in Inferior leads Referred By: Generic ED Physician Electronically Signed By: COURTNEY RIVERA
[2025-04-08 10:50] LABS: MANUAL DIFF FLAG NO
[2025-04-08 10:55] LABS: Basophils Percent Auto 0.4 % (0-2); Eosinophils Absolute Auto 0.1 X10*3/uL (0.0-0.4); Eosinophils Percent Auto 2.4 % (0-4); Hematocrit 36.1 % (37.0-47.0); Hemoglobin 12.3 g/dl (12.0-16.0); Imm Gran Abs Auto 0.01 X10*3/uL (0.00-0.03); Imm Gran Pct Auto 0.2 % (0.0-0.4); Lymphocytes Absolute Auto 1.5 X10*3/uL (1.2-4.9); Lymphocytes Percent Auto 32.7 % (20-40); Mean Corpuscular HGB Conc 34.1 g/dl (31.0-35.0); Mean Corpuscular Hemoglobin 29.1 pg (27.0-33.0); Mean Corpuscular Volume 85.5 fL (80.0-98.0); Mean Platelet Volume 9.4 fL (9.4-12.3); Monocytes Absolute Auto 0.4 X10*3/uL (0.1-1.2); Monocytes Percent Auto 9.5 % (2-11); Neutrophils Absolute Auto 2.5 x10*3/uL (2.0-8.3); Neutrophils Percent Auto 54.8 % (45-73); Platelet Count 173 X10*3/uL (160-400); Red Blood Count 4.22 X10*6/uL (4.20-5.50); Red Cell Distribution Width 14.3 % (11.0-16.0); White Blood Count 4.6 X10*3/uL (4.8-10.8)
[2025-04-08 11:06] LABS: Alanine Aminotransferase 21 U/L (0-31); Albumin Level 3.7 g/dL (3.5-5.0); Alkaline Phosphatase 71 U/L (39-117); Anion Gap 12 (12-20); Aspartate Amino Transferase 23 U/L (5-31); Bilirubin Total 0.3 mg/dL (0.0-1.0); Blood Urea Nitrogen 21 mg/dL (9-16); Calcium 9.7 mg/dL (8.4-10.2); Carbon Dioxide 26 mmol/L (22-29); Chloride 109 mmol/L (96-108); Creatinine Clr Calc Pharmacy 38.4; Estimated Glomerular Filt Rate 57; Glucose Random 143 mg/dL (60-115); Sodium 143 mmol/L (135-145); Total Protein 6.9 g/dL (6.5-8.0)
--- NOTE | 2025-04-08 11:58 | ED_ITS ---
HPI - General Adult General Chief complaint: Fall Stated complaint: SYNCOPE IN BR @ SNF PER EMS Time Seen by Provider: 04/08/25 11:14 Source: patient, EMS and certified court interpreter Mode of arrival: EMS Limitations: language barrier ( Dominican-speaking certified court interpreter utilized) History of Present Illness ED Provider: HPI narrative: 85-year-old Dominican-speaking woman presenting from [facility] and rehab, patient is alert to self and location, she has also adequate historian she told me that she has dizziness, was reported that she was having epigastric abdominal pain at that time on elevation she denied abdominal pain denied neck pain or headache, she is not on blood thinners. She did not report presyncope or vertigo. Patient denies ongoing chest pain. Patient's cervical collar was removed as she was not able to tolerate it and it was loosely applied. No reports of fevers, chills, nausea vomiting or diarrhea. Related Data Home Medications ?Medication ?Instructions ?Recorded ?Confirmed levothyroxine 75 mcg tablet 75 mcg PO DAILY 06/21/23 02/06/25 melatonin 1 mg tablet 1 mg PO BEDTIME PRN Sleep 02/06/25 02/06/25 Previous Rx's ?Medication ?Instructions ?Recorded famotidine 20 mg tablet 20 mg PO DAILY #20 tabs 10/31/23 Allergies Allergy/AdvReac Type Severity Reaction Status Date / Time azithromycin [From ZITHROMAX] Allergy Severe GENERIC Verified 04/08/25 10:28 ONLY-SEVERE ABD PAIN, abdominal pain codeine [CODEINE] Allergy Intermediate NAUSEA & Verified 04/08/25 10:28 VOMITING,FAINTED, nausea, vomiting, syncope erythromycin base Allergy Intermediate HIVES, ABD Verified 04/08/25 10:28 [ERYTHROMYCIN BASE] PAIN promethazine [From PHENERGAN] Allergy Intermediate DIZZY / Verified 04/08/25 10:28 NAUSEATED amoxicillin [Prevpac] Allergy Unknown Unknown Verified 04/08/25 10:28 clarithromycin [Prevpac] Allergy Unknown Unknown Verified 04/08/25 10:28 Review of Systems 2 Constitutional: Constitutional: Reports as per HPI [facility] Past Medical History Medical History Failure to thrive in adult Hematuria of unknown cause Hx of breast cancer Hypothyroid Arthritis History of anemia History of colitis Dysphagia Weight loss, unintentional GI bleed Hx of syncope Bright red blood per rectum Constipation GERD (gastroesophageal reflux disease) Anxiety Surgical History History of esophagogastroduodenoscopy (EGD) Hx of colonoscopy H/O left mastectomy History of ankle surgery Family History Family History Father No problems noted. 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 have visiting nurse or other home services: Yes Alcohol intake: never Patient Tobacco Use Status: Never used Tobacco Advance Directives: Yes Advance Directives on File: Yes Advance Directives Date on File: 10/20/20 service: No Current occupational status: retired Physical Exam ED Vital Signs: Vital Signs - 24 hr 04/08/25 10:24 04/08/25 12:42 Temperature 97.5 F 96.2 F L Pulse Rate 76 68 Respiratory Rate 16 14 Blood Pressure 123/58 L 124/60 Pulse Oximetry 98 97 Oxygen Delivery Method Room Air Room Air BMI result Body Mass Index 23.0 Const Other: * Gen: ?Overall well-appearing patient appropriate for age * HEENT: PERRLA, EOMI, MMM, * Neck: Supple, no LAD, there is no midline tenderness, cervical collar was loosened did remove it she had full range of motion. * CV: RRR, no obvious murmurs appreciated * Resp: ?No wheezing rales rhonchi no stridor moving air well, no chest wall tenderness, no bruising no subcutaneous emphysema * Abd: ?Bowel sounds are present, no tenderness no rebound no rigidity * MSK: FROM, strength 5/5 all extremities, pelvis is stable, full range of motion active and passively upper or lower extremities without deformities * Skin: Warm, dry, intact, * Neuro: ?Alert and oriented x2, moving upper and lower extremities symmetrically, no obvious facial asymmetry noted Medical Decision Making Medical Decision Making MDM Narrative: Patient is presenting with unwitnessed fall, she is not on blood thinners, history of dementia but she is otherwise able to provide a fairly good history, sounds like she became dizzy in [place], consideration include traumatic brain injury, stroke, vertigo, cerebellar stroke, hip fractures, those reports that she had abdominal pain her abdominal exam is completely benign I did not suspect SBO, bowel perforation volvulus did not feel she needs further imaging, after workup is complete and if her vital signs remained stable and she remains afebrile anticipating discharge back to the rehab facility, translator interpreter was utilized to obtain history from her. Lab Data MDM Lab Attestation statement: I reviewed the patient's lab results. 04/08/25 10:45 04/08/25 10:45 Labs: Lab Results 04/08/25 Range/Units 10:45 WBC 4.6 L (4.8-10.8) X10*3/uL RBC 4.22 (4.20-5.50) X10*6/uL Hgb 12.3 (12.0-16.0) g/dl Hct 36.1 L (37.0-47.0) % MCV 85.5 (80.0-98.0) fL MCH 29.1 (27.0-33.0) pg MCHC 34.1 (31.0-35.0) g/dl RDW 14.3 (11.0-16.0) % Plt Count 173 (160-400) X10*3/uL MPV 9.4 (9.4-12.3) fL Immature Gran % (Auto) 0.2 (0.0-0.4) % Neut % (Auto) 54.8 (45-73) % Lymph % (Auto) 32.7 (20-40) % [place] % (Auto) 9.5 (2-11) % Eos % (Auto) 2.4 (0-4) % Baso % (Auto) 0.4 (0-2) % Lymph # (Auto) 1.5 (1.2-4.9) X10*3/uL [place] # (Auto) 0.4 (0.1-1.2) X10*3/uL Eos # (Auto) 0.1 (0.0-0.4) X10*3/uL Baso # (Auto) 0.0 (0.0-0.2) X10*3/uL Abs Immat Gran (auto) 0.01 (0.00-0.03) X10*3/uL Absolute Neuts (auto) 2.5 (2.0-8.3) x10*3/uL Absolute Nucleated RBC 0.000 (0.0-0.012) X10*3/uL Nucleated RBC % (auto) 0.0 (0.0-0.2) /100WBC Sodium 143 (135-145) mmol/L Potassium 4.0 (3.3-5.1) mmol/L Chloride 109 H (96-108) mmol/L Carbon Dioxide 26 (22-29) mmol/L Anion Gap 12 (12-20) BUN 21 H (9-16) mg/dL Creatinine 0.94 (0.5-1.4) mg/dL Estim Creat Clear Calc 38.4 Estimated GFR 57 Random Glucose 143 H (60-115) mg/dL Calcium 9.7 (8.4-10.2) mg/dL Total Bilirubin 0.3 (0.0-1.0) mg/dL AST 23 (5-31) U/L ALT 21 (0-31) U/L Alkaline Phosphatase 71 (39-117) U/L Total Protein 6.9 (6.5-8.0) g/dL Albumin 3.7 (3.5-5.0) g/dL Independent Interpretation I performed an independent interpretation of an: EKG (74 beats per minute, otherwise normal ECG without dysrhythmia, AV marixa blocks or ST-T changes to suspect underlying ACS, my independent interpretation) Radiology Impression Discussion of test interpretation with radiology: I have reviewed the radiologist's reading. Radiologist Impression: No acute intracranial abnormality with some degenerative changes on the cervical spine Discharge Plan Discharge Clinical Impression: Dizziness, Contusion of head Patient Disposition: [facility] Additional Instructions: Patient evaluated after reports of dizziness and a fall, workup included CT cervical spine and CT brain which did not reveal any abnormalities, she has some arthritic changes in her neck Her blood work has been reassuring without any evidence for dehydration, though reports that she had abdominal pain she did not complain of any abdominal pain on exam and whole her blood work has been reassuring, her CTs from January of this year have been reviewed as well and they were unremarkable. On physical examination she had no obvious trauma nothing else to suspect injury of the chest wall upper extremities or lower extremities She will be discharged back to her facility Prescriptions: No Action famotidine 20 mg Tablet 20 mg PO DAILY Qty: 20 0RF melatonin 1 mg Tablet 1 mg PO BEDTIME PRN (Reason: Sleep) levothyroxine 75 mcg tablet 75 mcg PO DAILY Print Language: Dominican
--- OUTSIDE RECORDS SUMMARY | 2025-04-08 12:31 | XMS_ITS | Encounter Summary ---
Author Organization [employer] Address [address] [place] [address] Care Team Providers Care Sheep Boner Name Role Phone Dee Dee Rueda MD Primary Care Provide r Reason for Visit * Reason Comments Med Refill Encounter Details Date Type Department Care Team (Late st Contact Info) Description 02/03/2024 Refill [facility] [address] [place] [address] Comfort Marrero FNP [address] [place], [place] [phone] Acquired hypothyroidism Social History Tobacco Use Types Packs/Day Years Used Date Smoking Tobacco: Never Passive Smoke Exposure: Never Smokeless Tobacco: Never Alcohol Use Standard Drinks/Week Comments Never 0 (1 standard drink = 0.6 oz pur e alcohol) Depression Answer Date Recorded Patient Health Questionnaire-9 Score 0 04/15/2023 Housing Stability Answer Date Recorded What is your housing situation today? I have daveklaus alvarado 09/23/[address] you [...] as of this encounter Plan of Treatment Not on file documented as of this encounter Visit Diagnoses Diagnosis Acquired hypothyroidism Unspecified hypothyroidism documented in this encounter Additional Health Concerns Assessment Noted Time PHQ-9 Depression Total Score: 0 04/15/20 11:51 AM EDT documented as of this encounter Care Teams Sheep Boner Relationship Specialty Start Date End Date Dee Dee Rueda MD [address] [place] [id number] PCP - General Family Medicine 09/07/22 documented as of this encounter
--- OUTSIDE RECORDS SUMMARY | 2025-04-08 12:31 | XMS_ITS | Encounter Summary ---
Author Organization [employer] Address [address] [facility] [address] [place] [address] Care Team Providers Care Lettuce Trimmer Name Role Phone Dee Dee Rueda MD Primary Care Provide r Reason for Visit * Reason Comments Med Refill Encounter Details Date Type Department Care Team ([facility] st Contact Info) Description 09/08/2024 Refill [facility] [address] [place], [place] [phone] Dee Dee Rueda MD [address] [place], [place] [phone] Moderate dementia with other behavioral disturbance, unspecified [...] documented as of this encounter Care Teams Lettuce Trimmer Relationship Specialty Start Date End Date Dee Dee Rueda MD [address] [place] [address] PCP - General Family Medicine 09/07/22 documented as of this encounter
--- OUTSIDE RECORDS SUMMARY | 2025-04-08 12:31 | XMS_ITS | Encounter Summary ---
Author Organization [employer] Address [address] [facility] [address] [place] [address] Care Team Providers Care Therapy Site Coordinator Name Role Phone Dee Dee Rueda MD Primary Care Provide r Reason for Visit * Reason Comments Med Refill Encounter Details Date Type Department Care Team ([facility] st Contact Info) Description 07/06/2024 Refill [facility] [address] [place], [place] [phone] Dee Dee Rueda MD [address] [place], [place] [phone] Moderate dementia with other behavioral disturbance, unspecified [...] documented as of this encounter Care Teams Therapy Site Coordinator Relationship Specialty Start Date End Date Dee Dee Rueda MD [address] [place] [id number] PCP - General Family Medicine 09/07/22 documented as of this encounter
--- OUTSIDE RECORDS SUMMARY | 2025-04-08 12:31 | XMS_ITS | Encounter Summary ---
Author Organization [employer] Address [address] [place] [address] Care Team Providers Care Research Chemist Name Role Phone Dee Dee Rueda MD Primary Care Provide r Reason for Visit * Reason Comments Med Refill Encounter Details Date Type Department Care Team ([facility] st Contact Info) Description 10/08/2024 Refill [facility] [address] [place] [address] Comfort Marrero FNP [address] [place], [place] [phone] Acquired hypothyroidism Social History Tobacco Use Types [...] documented as of this encounter Care Teams Research Chemist Relationship Specialty Start Date End Date Dee Dee Rueda MD [address] [place] [id number] PCP - General Family Medicine 09/07/22 documented as of this encounter
--- OUTSIDE RECORDS SUMMARY | 2025-04-08 12:31 | XMS_ITS | Encounter Summary ---
Author Organization [employer] Address [address] [place] [address] Care Team Providers Care Underwear Welter Name Role Phone Dee Dee Rueda MD Primary Care Provide r Reason for Visit * Reason Comments Med Refill Encounter Details Date Type Department Care Team ([facility] st Contact Info) Description 10/18/2023 Refill [facility] [address] [place] [address] Comfort Marrero FNP [address] [place], [place] [phone] Acquired hypothyroidism Social History Tobacco Use Types [...] documented as of this encounter Care Teams Underwear Welter Relationship Specialty Start Date End Date Dee Dee Rueda MD [address] [place] [id number] PCP - General Family Medicine 09/07/22 documented as of this encounter
--- OUTSIDE RECORDS SUMMARY | 2025-04-08 12:31 | XMS_ITS | Clinical Summary ---
Author Organization [employer] Address [address] [facility] 7t [place] [address] Care Team Providers Care Supervisor Furnace Process Name Role Phone Dee Dee Rueda MD [...] EVERY DAY 90 tablet 1 4 Active lansoprazole (Prevacid) [address] capsuleIndications :Gastroesophageal reflux disease, unspecified whether esophagitis present TAKE 1 CAPSULE BY MOUTH EVERY DAY BEFORE A MEAL 90 capsule 1 4 Active levothyroxine (Synthroid, Levoxyl) 75 MCG tabletIndications: Acquired hypothyroidism TAKE 1 TABLET BY MOUTH EVERY DAY BEFORE BREAKFAST 90 tablet 1 4 Active melatonin tabletIndications: Primary insomnia TAKE 1 TABLET BY MOUTH EVERYDAY AT BEDTIME 90 tablet 5 Active Active Problems Problem Noted Date Diagnosed [...] Encounters Date Type Department Care Team Description 03/23/2025 Telephone [facility] [address] [place] [phone] Dee Dee Rueda MD Durable Medical Equipment ([place] Form: Incontinence Supplies) 02/12/[address] [address] Dee Dee Rueda MD No Show 02/06/2025 Orders Only [facility] External Provider, [facility] 02/04/2025 Patient Outreach [address] [phone] Dee Dee Rueda MD Pre-visit Planning ((Unable to reach for PVP screening and or LVM)) 02/03/[address] [address] Dee Dee Rueda MD Primary insomnia from Last 3 Months Immunizations Name Administration [...] 05/05/2024 2:28 PM EDT Plan of Treatment Health Maintenance Due Date Last Done Comments Alcohol/Substance Use Screening 1952 Zoster Vaccines (1 of 2) 1991 RSV Patients and Patients Aged 60 years or older (1 - 1-dose 75+ series) 2016 COVID-19 Vaccine (2023-2 5 season) 2024 03/02/2021, 12/29/2020, 12/08/2020 Influenza [...] Procedure Name Priority Date/Time Associated Diagnosis Comments URINALYSIS, COMPLETE, WITH REFLEX TO CULTURE Routine 02/06/2025 3:17 PM EST HIGH SENSITIVITY TROPONIN I Routine 02/06/2025 12:[address] CERVICAL SPINE WO CONTRAST Routine 02/06/2025 11:[address] HEAD WO CONTRAST Routine 02/06/2025 1 1:40 AM EST from Last 3 Months Results * (ABNORMAL) Urinalysis, Complete, with Reflex to Culture (02/06/2025 3:17 PM EST) Color Urine Yellow [facility] Appearance Urine Turbid [facility] PH 8.0 5.0 - 9.0 [facility] Glucose Urine UA Negative Negative mg/dL [facility] Urine Blood Negative Negative [facility] Specific Ragan - Urine 1.015 1.005 - 1.025 [facility] Urine Protein Negative Neg-Trace mg/dL [facility] Urine Ketones Negative Negative mg/dL [facility] Nitrite Urine Negative Negative [facility] Leukocyte Esterase Urine Trace(A) Negative [facility] RBC Urine 0-2 0 - 2 /HPF [facility] Urine WBC 0-5 0 - 5 /HPF [facility] Urine Squamous Epithelial Cell 0-2 0 - 2 /HPF [facility] Urine Bacteria Trace None Seen [facility] Hyaline Casts, Urine 0-2 0 - 2 /LPF [facility] 02/06/2025 3:17 PM EST 02/06/2025 3:23 PM EST Narrative [facility] - 02/06/2025 3:36 PM EST [id number], Clean Catch us Generic External Data Provider LAB URINE ORDERAB LES Final Result [facility] [address] [place] [phone] * High Sensitivity Troponin I (02/06/2025 12:56 PM EST) TROPONIN I HIGH SENSITIVITY 2.8 <3.5 - 17.0 ng/L [facility] Comment:The [place] high sens itivity Troponin-I results should beused in conjunction with other diagnostic information suchas ECG, clinical observations and information, and patientsymptoms to aid in the diagnosis of [place]. 02/06/2025 12:5 6 PM EST 02/06/2025 1:00 PM EST us Generic External Data Provider LAB BLOOD ORDERAB LES Final Result [facility] [address] [place] [address] [phone] * CT Cervical Spine w/o Contrast (02/06/2025 11:41 AM EST) Anatomical Region Laterality Modality Spine, C-spine Computed Tomogra phy 02/06/2025 11:4 1 AM EST Narrative 02/06/2025 11:43 AM EST ? [facility] ?[address] ?[place] [address] ? CT Scan Report ? Signed ? Patient: Kaley Treviño ?MR#: ?? [id number] ? : 1940 ?Acct:[id number] ? Age/Sex: 85 / F ?ADM Date: 02/06/25 ? Loc: HO.ED ? Attending Dr: ? Ordering Physician: Kayley Knott ?? Date of Service: 02/06/25 ?? Procedure(s): CT cervical spine wo IV con ?? Accession Number(s): [id number] ? cc: Dee Dee Rueda MD; Kayley Knott ? Report Number: ?? [id number]: Total DLP = ??274.83 mGy-cm ? CLINICAL HISTORY: fall, +head strike ? CT cervical spine without contrast ? Comparison: 02/02/2025 ? Findings: ?? There is straightening of the normal cervical lordosis. ?? No fracture or acute malalignment. Sclerotic focus along the posterior ?? aspect of T1 ?? Mild multilevel degenerative changes with disc space narrowing throughout ?? the cervical spine. ?? The facet joints are normally imbricated. ?? No prevertebral soft tissue edema. ?? Lung apicies demonstrate no acute process. Biapical scarring noted ? Impression: ? Mild degenerative changes without evidence of acute fracture or acute ?? malalignment. ? This document has been electronically signed by: Liam Smith MD on ?? 02/06/2025 11:41:49 ? Dictated By: ?Liam Smith MD ? Signed By: ?<Electronically signed by Liam Smith MD in OV> ? 02/06/25 1143 ? DD/ 1141 ? TD/TT: 02/06/25 1141 ? Fractionation Supervisor: ? Procedure Note Wendy, Ashu - 02/06/[address] [address] [address] Scan Report Signed Patient: Kaley Treviño MMR#: [id number] : 1940cct:[id number] Age/Sex: 85 / FADM Date: 02/06/25 Loc: HO.ED Attending Dr: Ordering Physician: Kayley Knott Date of Service: 02/06/25 Procedure(s): CT cervical spine wo IV con Accession Number(s): [id number] cc: Dee Dee Rueda MD; Kayley Knott Report Number: [id number]: Total DLP = 274.83 mGy-cm CLINICAL HISTORY: fall, +head strike CT cervical spine without contrast Comparison: 02/02/2025 Findings: There is straightening of the normal cervical lordosis. No fracture or acute malalignment. Sclerotic focus along the posterior aspect of T1 Mild multilevel degenerative changes with disc space narrowing throughout the cervical spine. The facet joints are normally imbricated. No prevertebral soft tissue edema. Lung apicies demonstrate no acute process. Biapical scarring noted Impression: Mild degenerative changes without evidence of acute fracture or acute malalignment. This document has been electronically signed by: Liam Smith MD on 02/06/2025 11:41:49 Dictated By: Liam Smith MD Signed By: <Electronically signed by Liam Smith MD in OV> 02/06/25 1143 DD/ 1141 TD/TT: 02/06/25 1141 Fractionation Supervisor: us [facility] External Provider IMG CT PROCEDURES Edited Result - Final * CT Head w/o Contrast (02/06/2025 11:40 AM EST) Anatomical Region Laterality Modality Head, Neck Computed Tomogra phy 02/06/2025 11:4 0 AM EST Narrative 02/06/2025 11:41 AM EST ? [facility] ?[address] ?[place] [address] ? CT Scan Report ? Signed ? Patient: Kaley Treviño ?MR#: ?? [id number] ? : 1940 ?Acct:[id number] ? Age/Sex: 85 / F ?ADM Date: 02/06/25 ? Loc: HO.ED ? Attending Dr: ? Ordering Physician: Kayley Knott ?? Date of Service: 02/06/25 ?? Procedure(s): CT head/brain wo IV con ?? Accession Number(s): [id number] ? cc: Dee Dee Rueda MD; Kayley Knott ? Report Number: ?? [id number]: Total DLP = ??697.85 mGy-cm ? CLINICAL HISTORY: fall, +head strike ? CT head without contrast ? Comparison: CT/SR - CT HEAD/BRAIN WO IV CON - 02/02/25 05:42 EST ?? CT/REG/ID/SR - CT HEAD/BRAIN WO IV CON - 02/24/24 09:57 EDT ? Findings: ? No evidence of acute territorial infarct. ?? There is patchy low density in the periventricular and subcortical white ?? matter. ?? 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 Diffuse volume loss is noted. No hydrocephalus. ?? No hemorrhage, mass effect, mass lesion or midline shift. ?? No abnormal extra-axial fluid. ?? No calvarial fracture. ?? Paranasal sinuses and mastoid air cells are clear. ? Impression: ? No evidence of acute process. Ischemic microangiopathy, prior infarct and ?? diffuse volume loss. ? This document has been electronically signed by: Liam Smith MD on ?? 02/06/2025 11:40:07 ? Dictated By: ?Liam Smith MD ? Signed By: ?<Electronically signed by Liam Smith MD in OV> ? 02/06/25 1141 ? DD/ 1140 ? TD/TT: 02/06/25 1140 ? Fractionation Supervisor: ? Procedure Note Donotloreinterpreter, Image - 02/06/[address] [place] [id number] [address] Scan Report Signed Patient: Kaley Treviño MMR#: [id number] : 1Acct:[id number] Age/Sex: 85 / FADM Date: 02/06/25 Loc: HO.ED Attending Dr: Ordering Physician: Kayley Knott Date of Service: 02/06/25 Procedure(s): CT head/brain wo IV con Accession Number(s): [id number] cc: Dee Dee Rueda MD; Kayley Knott Report Number: [id number]: Total DLP = 697.85 mGy-cm CLINICAL HISTORY: fall, +head strike CT head without contrast Comparison: CT/SR - CT HEAD/BRAIN WO IV CON - 02/02/25 05:[address]/REG/ID/SR - CT HEAD/BRAIN WO IV CON - 02/24/24 09:57 EDT Findings: No evidence of acute territorial infarct. There is patchy low density in the periventricular and subcortical white matter. 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 No hydrocephalus. No hemorrhage, mass effect, mass lesion or midline shift. No abnormal extra-axial fluid. No calvarial fracture. Paranasal sinuses and mastoid air cells are clear. Impression: No evidence of acute process. Ischemic microangiopathy, prior infarct and diffuse volume loss. This document has been electronically signed by: Liam Smith MD on 02/06/2025 11:40:07 Dictated By: Liam Smith MD Signed By: <Electronically signed by Liam Smith MD in OV> 02/06/25 1141 DD/ 1140 TD/TT: 02/06/25 1140 Fractionation Supervisor: us [facility] External Provider IMG CT PROCEDURES Edited Result - Final from Last 3 Months Insurance [facility] [facility] [employer] (HMO D-SNP) Care Teams Supervisor Furnace Process Relationship Specialty Start Date End Date Dee Dee Rueda MD [address] [place] [address] PCP - General Family Medicine 09/07/22
--- OUTSIDE RECORDS SUMMARY | 2025-04-08 12:31 | XMS_ITS | Encounter Summary ---
Author Organization [employer] Address [address] [place] [address] Care Team Providers Care Vehicle Assembler Name Role Phone Tabatha Keen MD Primary Care Provider + Encounter Details Date Type Department Care Team (Late st Contact Info) Description 02/16/2025 Lab Requisition [facility] - Main Lab [address] [facility] [place] [address] Tabatha Keen MD [address] [facility] [address] [place], [place] [phone] Unspecified dementia, unspecified severity, without behavioral disturbance, psychotic disturbance, mood disturbance, and anxiety (CMS/HCC V24, CMS/HCC V28); Disease of blood and blood-forming organs, unspecified Social History Tobacco Use Types Packs/Day Years Used Date Smoking Tobacco: Never Assessed Comments Unknown Sex and Gender Information Value Date Recorded Sex Assigned at Not on file Legal Sex Female 8:55 PM EST Gender Identity Not on file Sexual Orientation Not on file documented as of this encounter Plan of Treatment Not on file documented as of this encounter Procedures Procedure Name Priority Date/Time Associated Diagnosis Comments VITAMIN D 25 HYDROXY Routine 02/16/2025 7:43 AM EDT Unspecified dementia, unspecified severity, without behavioral disturbance, psychotic disturbance, mood disturbance, and anxiety (CMS/HCC) Disease of blood and blood-forming organs, unspecified COMPLETE BLOOD COUNT Routine 02/16/2025 7:43 AM EDT Unspecified dementia, unspecified severity, without behavioral disturbance, psychotic disturbance, mood disturbance, and anxiety (CMS/HCC) Disease of blood and blood-forming organs, unspecified THYROID STIMULATING HORMONE Routine 02/16/2025 7:43 AM EDT Unspecified dementia, unspecified severity, without behavioral disturbance, psychotic disturbance, mood disturbance, and anxiety (CMS/HCC) Disease of blood and blood-forming organs, unspecified FOLATE Routine 02/16/2025 7:43 AM EDT Unspecified dementia, unspecified severity, without behavioral disturbance, psychotic disturbance, mood disturbance, and anxiety (CMS/HCC) Disease of blood and blood-forming organs, unspecified VITAMIN B12 Routine 02/16/2025 7:43 AM EDT Unspecified dementia, unspecified severity, without behavioral disturbance, psychotic disturbance, mood disturbance, and anxiety (CMS/HCC) Disease of blood and blood-forming organs, unspecified COMPREHENSIVE METABOLIC PANEL Routine 02/16/2025 7:43 AM EDT Unspecified dementia, unspecified severity, without behavioral disturbance, psychotic disturbance, mood disturbance, and anxiety (CMS/HCC) Disease of blood and blood-forming organs, unspecified documented in this encounter Results * Thyroid stimulating hormone (02/16/2025 7:43 AM EDT) TSH 2.87 0.40 - 4.00 mcIU/mL LAB CHEMISTRY METHOD 02/16/2025 12:24 PM EDT [facility] Blood Venous blood specimen / Unknown Venipuncture / Unknown 02/16/2025 7:43 AM EDT 02/16/2025 10:33 AM EDT us Tabatha Keen MD LAB BLOOD ORDERABLES Fin al Result [facility] [address] [place] [address], * (ABNORMAL) Folate (02/16/2025 7:43 AM EDT) Folate 17.3(H) 2.8 - 17.0 ng/ml LAB CHEMISTRY METHOD 02/16/2025 12:42 PM EDT [facility] Blood Venous blood specimen / Unknown Venipuncture / Unknown 02/16/2025 7:43 AM EDT 02/16/2025 10:33 AM EDT Tabatha Keen MD LAB BLOOD ORDERABLES Fin al Result Performing Organization Address [facility]/ZIP Co de Phone Number [facility] [address] [place] [address], [place] [phone] * (ABNORMAL) Vitamin B12 (02/16/2025 7:43 AM EDT) Pathologist [facility] Vitamin B-12 1,926(H) 250 - 900 pcg/mL LAB CHEMISTRY METHOD 02/16/2025 12:42 PM EDT [facility] Blood Venous blood specimen / Unknown Venipuncture / Unknown 02/16/2025 7:43 AM EDT 02/16/2025 10:33 AM EDT Tabatha Keen MD LAB BLOOD ORDERABLES Fin al Result Performing Organization Address [facility]/ZIP Co de Phone Number [facility] [address] [place] [address], [place] [phone] * Vitamin D 25 hydroxy (02/16/2025 7:43 AM EDT) Pathologist [facility] Vit D, 25-Hydroxy 34.8 30.0 - 80.0 ng/mL LAB CHEMISTRY METHOD 02/16/2025 12:23 PM EDT [facility] Blood Venous blood specimen / Unknown Venipuncture / Unknown 02/16/2025 7:43 AM EDT 02/16/2025 10:33 AM EDT Tabatha Keen MD LAB BLOOD ORDERABLES Fin al Result Performing Organization Address City/[facility]/ZIP Co de Phone Number [facility] [address] [place] [address], [place] [phone] * (ABNORMAL) Comprehensive metabolic panel (02/16/2025 7:43 AM EDT) Sodium 140 133 - 145 mmol/L LAB CHEMISTRY METHOD 02/16/2025 12:42 PM [facility] Potassium 4.8 3.5 - 5.5 mmol/L LAB CHEMISTRY METHOD 02/16/2025 12:42 PM [facility] Chloride 107 96 - 110 mmol/L LAB CHEMISTRY METHOD 02/16/2025 12:42 PM [facility] CO2 27 21 - 32 mmol/L LAB CHEMISTRY METHOD 02/16/2025 12:42 PM [facility] Anion Gap 6 3 - 11 LAB CHEMISTRY METHOD 02/16/2025 12:42 PM [facility] Glucose 78 70 - 100 mg/dL LAB CHEMISTRY METHOD 02/16/2025 12:42 PM [facility] BUN 25 5 - 25 mg/dL LAB CHEMISTRY METHOD 02/16/2025 12:42 PM [facility] Creatinine 1.05 0.50 - 1.10 mg/dL LAB CHEMISTRY METHOD 02/16/2025 12:42 PM [facility] eGFR 53(L) >=60 mL/min/1. 73m2 LAB CHEMISTRY METHOD 02/16/2025 12:42 PM [facility] Comment:Calculation based on the??Chronic Kidney Disease Epidemiology Collaboration (CKD-EPI) equation refit??without adjustment for race. BUN/Creatinine Ratio 23.8 LAB CHEMISTRY METHOD 02/16/2025 12:42 PM [facility] Calcium 10.5 8.5 - 10.5 mg/dL LAB CHEMISTRY METHOD 02/16/2025 12:42 PM [facility] AST (SGOT) 27 10 - 42 unit/L LAB CHEMISTRY METHOD 02/16/2025 12:42 PM [facility] ALT (SGPT) 40 10 - 60 unit/L LAB CHEMISTRY METHOD 02/16/2025 12:42 PM EDT [facility] Alkaline Phosphatase 71 42 - 121 unit/L LAB CHEMISTRY METHOD 02/16/2025 12:42 PM EDT [facility] Total Protein 7.1 6.0 - 8.0 g/dL LAB CHEMISTRY METHOD 02/16/2025 12:42 PM EDT [facility] Albumin 3.6 3.2 - 5.0 g/dL LAB CHEMISTRY METHOD 02/16/2025 12:42 PM EDT [facility] Total Bilirubin 0.4 0.0 - 1.4 mg/dL LAB CHEMISTRY METHOD 02/16/2025 12:42 PM EDT [facility] Blood Venous blood specimen / Unknown Venipuncture / Unknown 02/16/2025 7:43 AM EDT 02/16/2025 10:33 AM EDT us Tabatha Keen MD LAB BLOOD ORDERABLES Fin al Result [facility] [address] [place] [address], * (ABNORMAL) Complete blood count (02/16/2025 7:43 AM EDT) WBC 6.3 4.8 - 10.8 K/mcL LAB HEMETOLOGY METHOD 02/16/2025 11:20 AM EDT [facility] RBC 4.60 3.80 - 4.80 M/mcL LAB HEMETOLOGY METHOD 02/16/2025 11:20 AM EDT [facility] Hemoglobin 13.2 11.5 - 16.0 g/dL LAB HEMETOLOGY METHOD 02/16/2025 11:20 AM EDT [facility] Hematocrit 40.8 35.0 - 47.0 % LAB HEMETOLOGY METHOD 02/16/2025 11:20 AM EDT [facility] MCV 89.5 79.0 - 98.0 FL LAB HEMETOLOGY METHOD 02/16/2025 11:20 AM EDT [facility] MCH 28.9 27.0 - 32.0 pcg LAB HEMETOLOGY METHOD 02/16/2025 11:20 AM EDT [facility] MCHC 32.4 32.0 - 37.0 g/dL LAB HEMETOLOGY METHOD 02/16/2025 11:20 AM EDT [facility] RDW 15.4(H) 11.0 - 15.0 % LAB HEMETOLOGY METHOD 02/16/2025 11:20 AM EDT [facility] Platelets 226 130 - 400 K/mcL LAB HEMETOLOGY METHOD 02/16/2025 11:20 AM EDT [facility] MPV 10.6 7.0 - 11.0 FL LAB HEMETOLOGY METHOD 02/16/2025 11:20 AM EDT [facility] NRBC 0.0 <1.0 % LAB HEMETOLOGY METHOD 02/16/2025 11:20 AM EDT [facility] NRBC Absolute 0.00 <0.10 K/mcL LAB HEMETOLOGY METHOD 02/16/2025 11:20 AM T [facility] Blood Venous blood specimen / Unknown Venipuncture / Unknown 02/16/2025 7:43 AM EDT 02/16/2025 10:33 AM EDT us Tabatha Keen MD LAB BLOOD ORDERABLES Fin al Result [facility] [address] [place] [address], documented in this encounter Visit Diagnoses Diagnosis Unspecified dementia, unspecified severity, without behavioral disturbance, psychotic disturbance, mood disturbance, and anxiety (CMS/HCC V24, CMS/HCC V28) Disease of blood and blood-forming organs, unspecified documented in this encounter Care Teams Vehicle Assembler Relationship Specialty Start Date End Date Tabatha Keen MD [address] [address] PCP - General Family Medicine 02/16/25 documented as of this encounter
--- OUTSIDE RECORDS SUMMARY | 2025-04-08 12:31 | XMS_ITS | Encounter Summary ---
Author Organization [employer] Address [address] [place] [address] Care Team Providers Care Parcel Contractor Name Role Phone Dee Dee Rueda MD Primary Care Provide r Reason for Visit * Reason Comments Med Refill Encounter Details Date Type Department Care Team ([facility] st Contact Info) Description 01/28/2024 Refill [facility] [address] [place] [address] Comfort Marrero FNP [address] [place], [place] [phone] Acquired hypothyroidism Social History Tobacco Use Types [...] documented as of this encounter Care Teams Parcel Contractor Relationship Specialty Start Date End Date Dee Dee Rueda MD [address] [place] [phone] PCP - General Family Medicine 09/07/22 documented as of this encounter
--- OUTSIDE RECORDS SUMMARY | 2025-04-08 12:31 | XMS_ITS | Encounter Summary ---
Author Organization [employer] Address [address] [facility] 7t [place] [address] Care Team Providers Care Investigative Analyst Name Role Phone Dee Dee Rueda MD Primary Care Provide r Reason for Visit * Reason Comments Med Change Request Encounter Details Date Type Department Care Team ([facility] st Contact Info) Description 11/20/[address] [facility] [address] [place], [place] [phone] Dee Dee Rueda MD [address] [place], [place] [phone] Allergic reaction, initial encounter Social History Tobacco [...] documented as of this encounter Care Teams Investigative Analyst Relationship Specialty Start Date End Date Dee Dee Rueda MD [address] [place] [phone] PCP - General Family Medicine 09/07/22 documented as of this encounter
--- OUTSIDE RECORDS SUMMARY | 2025-04-08 12:31 | XMS_ITS | Encounter Summary ---
Author Organization [employer] Address [address] [place] [address] Care Team Providers Care Marketer Name Role Phone Dee Dee Rueda MD Primary Care Provide r Reason for Visit * Reason Comments Med Refill Encounter Details Date Type Department Care Team ([facility] st Contact Info) Description 10/09/[address] [facility] [address] [place] [address] Comfort Marrero FNP [address] [place], [place] [phone] Acquired hypothyroidism Social History Tobacco Use Types [...] documented as of this encounter Care Teams Marketer Relationship Specialty Start Date End Date Dee Dee Rueda MD [address] [place] [phone] PCP - General Family Medicine 09/07/22 documented as of this encounter
--- OUTSIDE RECORDS SUMMARY | 2025-04-08 12:31 | XMS_ITS | Clinical Summary ---
Author Organization [facility] Address [address] [place] [address] Care Team Providers Care English Teacher Name Role Phone Unavailable Primary Care Provider [...]
--- OUTSIDE RECORDS SUMMARY | 2025-04-08 12:31 | XMS_ITS | Encounter Summary ---
Author Organization [employer] Address [address] [facility] 7t [place] [address] Care Team Providers Care Health Facilities Surveyor Name Role Phone Dee Dee Rueda MD Primary Care Provide r Reason for Visit * Reason Comments Med Refill Encounter Details Date Type Department Care Team ([facility] st Contact Info) Description 08/12/2024 Refill [facility] [address] [place], [place] [phone] Dee Dee Rueda MD [address] [place] [address] Moderate dementia with other behavioral disturbance, unspecified [...] documented as of this encounter Care Teams Health Facilities Surveyor Relationship Specialty Start Date End Date Dee Dee Rueda MD [address] [place] [phone] PCP - General Family Medicine 09/07/22 documented as of this encounter
--- OUTSIDE RECORDS SUMMARY | 2025-04-08 12:31 | XMS_ITS | Clinical Summary ---
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 Name Role Phone Tabatha Keen MD Primary Care Provider + Encounters Date Type Department Care Team Description 02/16/2025 Lab Requisition [facility] - Main Lab [address] [facility] [place] [address] Tabatha Keen MD Unspecified dementia, unspecified severity, without behavioral disturbance, psychotic disturbance, mood disturbance, and anxiety (CMS/HCC V24, CMS/HCC V28); Disease of blood and blood-forming organs, unspecified from Last 3 Months Social History Tobacco Use Types Packs/Day Years Used Date Smoking Tobacco: Never Assessed Comments Unknown Sex and Gender Information Value Date Recorded Sex Assigned at Not on file Legal Sex Female 8:55 PM EST Gender Identity Not on file Sexual Orientation Not on file Plan of Treatment Health Maintenance Due Date Last Done Comments Zoster Vaccines (1 of 2) 1959 RSV Immunization Adult Patients (1 - 1-dose 75+ series) 2016 Falls Risk Assessment 12/27/2023 Osteoporosis Screening (Bone Density Screening) 12/27/2023 Social Influencers of Health Screening 12/27/2023 COVID-19 Vaccine ( - 2023-2 5 season) 2024 03/02/2021, 12/29/2020, 12/08/2020 Depression Screening 05/05/2025 05/05/2024 Influenza Vaccine (Season Ended) 2025 09/14/2022 DTaP,Tdap,and Td Vaccines (2 - Td or Tdap) 05/15/2032 05/15/2022 Pneumococcal Vaccine: 50+ [...] age to complete this topic Meningococcal B Vaccine Aged Out No l onger eligible based on patient's age to complete this topic RSV Immunization Patients Under 20 months Aged Out No longer eligible b ased on patient's age to complete this topic Varicella Vaccines Aged Out No longer eligible based on patient's age to complete this topic Procedures Procedure Name Priority Date/Time Associated Diagnosis Comments THYROID STIMULATING HORMONE Routine 02/16/2025 7:43 AM [...] of blood and blood-forming organs, unspecified VITAMIN D 25 HYDROXY Routine 02/16/2025 7:43 [...] Disease of blood and blood-forming organs, unspecified from Last 3 Months Results * Vitamin D 25 hydroxy (02/16/2025 7:43 AM EDT) Pathologist [facility] [place] Vit D, 25-Hydroxy 34.8 30.0 - 80.0 ng/mL LAB CHEMISTRY METHOD 02/16/2025 12:23 PM EDT [facility] Blood Venous blood specimen / Unknown Venipuncture / Unknown 02/16/2025 7:43 AM EDT 02/16/2025 10:33 AM EDT Tabatha Keen MD LAB BLOOD ORDERABLES Fin al Result [facility] [address] [place] [address], * (ABNORMAL) Complete blood count (02/16/2025 7:43 AM EDT) [facility] WBC 6.3 4.8 - 10.8 K/mcL LAB HEMETOLOGY METHOD 02/16/2025 11:20 AM EDT [facility] RBC 4.60 3.80 - 4.80 M/mcL LAB HEMETOLOGY METHOD 02/16/2025 11:20 AM EDT [facility] Hemoglobin 13.2 11.5 - 16.0 g/dL LAB HEMETOLOGY METHOD 02/16/2025 11:20 AM EDT [facility] Hematocrit 40.8 35.0 - 47.0 % LAB HEMETOLOGY METHOD 02/16/2025 11:20 AM EDT [facility] MCV 89.5 79.0 - 98.0 FL LAB HEMETOLOGY METHOD 02/16/2025 11:20 AM EDT [facility] MCH 28.9 27.0 - 32.0 pcg LAB HEMETOLOGY METHOD 02/16/2025 11:20 AM EDT [facility] MCHC 32.4 32.0 - 37.0 g/dL LAB HEMETOLOGY METHOD 02/16/2025 11:20 AM EDT [facility] RDW 15.4(H) 11.0 - 15.0 % LAB HEMETOLOGY METHOD 02/16/2025 11:20 AM EDT [facility] Platelets 226 130 - 400 K/mcL LAB HEMETOLOGY METHOD 02/16/2025 11:20 AM T [facility] MPV 10.6 7.0 - 11.0 FL LAB HEMETOLOGY METHOD 02/16/2025 11:20 AM EDT [facility] NRBC 0.0 <1.0 % LAB HEMETOLOGY METHOD 02/16/2025 11:20 AM [facility] NRBC Absolute 0.00 <0.10 K/mcL LAB HEMETOLOGY METHOD 02/16/2025 11:20 AM [facility] Blood Venous blood specimen / Unknown Venipuncture / Unknown 02/16/2025 7:43 AM EDT 02/16/2025 10:33 AM EDT us Tabatha Keen MD LAB BLOOD ORDERABLES Fin al Result [facility] [address] [place] [address], * Thyroid stimulating hormone (02/16/2025 7:43 AM EDT) [facility] Signature TSH 2.87 0.40 - 4.00 mcIU/mL LAB CHEMISTRY METHOD 02/16/2025 12:24 PM EDT [facility] Blood Venous blood specimen / Unknown Venipuncture / Unknown 02/16/2025 7:43 AM EDT 02/16/2025 10:33 AM EDT Tabatha Keen MD LAB BLOOD ORDERABLES Fin al Result [facility] [address] [place] [address], [place] [phone] * (ABNORMAL) Folate (02/16/2025 7:43 AM EDT) Folate 17.3(H) 2.8 - 17.0 ng/ml LAB CHEMISTRY METHOD 02/16/2025 12:42 PM EDT [facility] Blood Venous blood specimen / Unknown Venipuncture / Unknown 02/16/2025 7:43 AM EDT 02/16/2025 10:33 AM EDT Tabatha Keen MD LAB BLOOD ORDERABLES Fin al Result Performing Organization Address [facility]/ZIP Co de Phone Number [facility] [address] [place] [address], [place] [phone] * (ABNORMAL) Vitamin B12 (02/16/2025 7:43 AM EDT) Vitamin B-12 1,926(H) 250 - 900 pcg/mL LAB CHEMISTRY METHOD 02/16/2025 12:42 PM EDT [facility] Blood Venous blood specimen / Unknown Venipuncture / Unknown 02/16/2025 7:43 AM EDT 02/16/2025 10:33 AM EDT Tabatha Keen MD LAB BLOOD ORDERABLES Fin al Result Performing Organization Address City/[facility]/ZIP Co de Phone Number [facility] [address] [place] [address], [place] [phone] * (ABNORMAL) Comprehensive metabolic panel (02/16/2025 7:43 AM EDT) Sodium 140 133 - 145 mmol/L LAB CHEMISTRY METHOD 02/16/2025 12:42 PM [facility] Potassium 4.8 3.5 - 5.5 mmol/L LAB CHEMISTRY METHOD 02/16/2025 12:42 PM [facility] Chloride 107 96 - 110 mmol/L LAB CHEMISTRY METHOD 02/16/2025 12:42 PM [facility] CO2 27 21 - 32 mmol/L LAB CHEMISTRY METHOD 02/16/2025 12:42 PM [facility] Anion Gap 6 3 - 11 LAB CHEMISTRY METHOD 02/16/2025 12:42 PM [facility] Glucose 78 70 - 100 mg/dL LAB CHEMISTRY METHOD 02/16/2025 12:42 PM [facility] BUN 25 5 - 25 mg/dL LAB CHEMISTRY METHOD 02/16/2025 12:42 PM [facility] Creatinine 1.05 0.50 - 1.10 mg/dL LAB CHEMISTRY METHOD 02/16/2025 12:42 PM [facility] eGFR 53(L) >=60 mL/min/1. 73m2 LAB CHEMISTRY METHOD 02/16/2025 12:42 PM [facility] Comment:Calculation based on the??Chronic Kidney Disease Epidemiology Collaboration (CKD-EPI) equation refit??without adjustment for race. BUN/Creatinine Ratio 23.8 LAB CHEMISTRY METHOD 02/16/2025 12:42 PM [facility] Calcium 10.5 8.5 - 10.5 mg/dL LAB CHEMISTRY METHOD 02/16/2025 12:42 PM [facility] AST (SGOT) 27 10 - 42 unit/L LAB CHEMISTRY METHOD 02/16/2025 12:42 PM [facility] ALT (SGPT) 40 10 - 60 unit/L LAB CHEMISTRY METHOD 02/16/2025 12:42 PM EDT [facility] Alkaline Phosphatase 71 42 - 121 unit/L LAB CHEMISTRY METHOD 02/16/2025 12:42 PM EDT [facility] Total Protein 7.1 6.0 - 8.0 g/dL LAB CHEMISTRY METHOD 02/16/2025 12:42 PM EDT [facility] Albumin 3.6 3.2 - 5.0 g/dL LAB CHEMISTRY METHOD 02/16/2025 12:42 PM EDT [facility] Total Bilirubin 0.4 0.0 - 1.4 mg/dL LAB CHEMISTRY METHOD 02/16/2025 12:42 PM EDT [facility] Blood Venous blood specimen / Unknown Venipuncture / Unknown 02/16/2025 7:43 AM EDT 02/16/2025 10:33 AM EDT us Tabatha Keen MD LAB BLOOD ORDERABLES Fin al Result [facility] [address] [place] [address], from Last 3 Months Insurance MEDICAID - [place] Care Teams 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
[2025-04-08 12:42] VITALS: BP 124/60; PULSE 68; RESP 14; TEMP 35.7; O2SAT 97
[2025-04-08 15:05] VITALS: BP 138/77; PULSE 69; RESP 18; O2SAT 98
--- NOTE | 2025-04-08 17:31 | PC.NURSE ---
patient ambulated with walker and standby assist to the bathroom
--- NOTE | 2025-04-08 18:36 | PC.NURSE ---
patient eating dinner
--- NOTE | 2025-04-08 18:58 | PC.NURSE ---
[facility]
[2025-04-08 19:49] VITALS: BP 135/65; PULSE 78; RESP 20; TEMP 36.7; O2SAT 98
--- NOTE | 2025-04-08 20:30 | PC.NURSE ---
report given to WONG Noel. per previous RN, nurse to nurse handover already completed prior to t/w arrival. pt leaving [facility] at this time.
[2025-04-08 20:31] VITALS: BP 135/65; PULSE 78; RESP 20; TEMP 36.7; O2SAT 98
== END 2025-04-08 20:31 | disposition skilled nursing facility (03) ==
PROVIDERS: Emergency Provider Emergency Medicine; PCP Internal Medicine
DX: R42 Dizziness and giddiness (principal); S00.93XA Contusion of unspecified part of head, initial encounter; W17.89XA Other fall from one level to another, initial encounter; Y93.E8 Activity, other personal hygiene; Y92.121 Bathroom in nursing home as the place of occurrence of the external cause; Y99.9 Unspecified external cause status
CPT/HCPCS: 36415; 70450; 72125; 80053; 85025; 93005; 99284

== ENCOUNTER → 2025-04-08 10:29 | Outpatient (BNV) | payer OTHER, SELFPAY | PROVIDERS: Emergency Provider Emergency Medicine; PCP Internal Medicine; Visit Provider Internal Medicine | DX: R94.31 Abnormal electrocardiogram [ECG] [EKG] (principal); W19.XXXA Unspecified fall, initial encounter | CPT/HCPCS: 93010 ==

== ENCOUNTER → 2025-04-08 11:47 | Outpatient (BNV) | payer OTHER, SELFPAY | PROVIDERS: Emergency Provider Emergency Medicine; PCP Internal Medicine; Visit Provider Radiology Diagnostic Radiology | DX: M47.892 Other spondylosis, cervical region (principal); F03.90 Unspecified dementia, unspecified severity, without behavioral disturbance, psychotic disturbance, mood disturbance, and anxiety; W19.XXXA Unspecified fall, initial encounter | CPT/HCPCS: 70450; 72125 ==

== ENCOUNTER 2025-07-18 10:46 | Observation (INO) | payer OTHER, SELFPAY ==
[2025-07-18] VITALS (8 sets, daily range): BP systolic 107–181; BP diastolic 60–94; PULSE 65–87; RESP 16–18; TEMP 36.6–36.8; O2SAT 96–98; BMI 25.4
--- NOTE | ~2025-07-18 | CT_ITS ---
CLINICAL HISTORY: fall w HS CT head without contrast. COMPARISON: CT head dated 04/08/25 at 13:06 EDT FINDINGS: The visualized paranasal sinuses are clear. Small amount of fluid present within the left mastoid air cells. No calvarial fracture. 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 No evidence of mass or mass effect. No intracranial hemorrhage or abnormal extra-axial fluid collection. The ventricles are proportional with the degree of mild to moderate global cerebral volume loss without evidence of hydrocephalus. Basilar cisterns are patent. There are periventricular areas of low attenuation compatible with [id number] white matter small vessel disease. Posterior fossa appears unremarkable. IMPRESSION: 1. No acute intracranial findings. This document has been electronically signed by: Favian Adkins MD on 07/18/2025 14:12:22
--- NOTE | ~2025-07-18 | XR_ITS ---
CLINICAL HISTORY: fall W shoulder pain --- Additional Notes or Special Instructions: collared Three views of the right shoulder. COMPARISON: None provided. FINDINGS: Proximal right humerus, the right scapula, and the right clavicle appear intact. Humeral head is appropriately seated in the glenoid. Moderate hypertrophy of the right acromioclavicular joint. Visualized portions of the right lung are clear. IMPRESSION: 1. No radiographic evidence of acute injury to the right shoulder. This document has been electronically signed by: Favian Adkins MD on 07/18/2025 16:15:01
--- NOTE | ~2025-07-18 | CT_ITS ---
CLINICAL HISTORY: fall W HS, pain CT cervical spine without contrast. COMPARISON: CT cervical spine dated 04/08/25 at 13:06 EDT FINDINGS: Normal vertebral body alignment. Vertebral body heights are maintained. No evidence of acute vertebral body injury. Sclerotic lesion within the posterior aspect of the T1 vertebral body, unchanged and likely representing a bone island. Skull base and intracranial structures appear normal. Apical pleural thickening with mild bronchiectasis, similar to prior imaging. Mild multilevel facet joint arthrosis throughout the cervical spine without significant neural foraminal narrowing. IMPRESSION: 1. No evidence of acute injury to the cervical spine. This document has been electronically signed by: Favian Adkins MD on 07/18/2025 14:16:01
--- NOTE | ~2025-07-18 | XR_ITS ---
CLINICAL HISTORY: abd pain Single view of the abdomen. COMPARISON: None provided. FINDINGS: Cholecystectomy clips. Normal bowel distention. Pelvic phleboliths present. No pneumoperitoneum identified. Mild stool burden. No fracture identified. Moderate lumbar spondylosis. Visualized portions of the lung bases were unremarkable. IMPRESSION: 1. Nonspecific nonobstructive bowel gas pattern. Single view of the abdomen. COMPARISON: None FINDINGS: Cholecystectomy clips. Normal bowel distention. Pelvic phleboliths present. No pneumoperitoneum identified. Mild stool burden. No fracture identified. Moderate lumbar spondylosis. Visualized portions of the lung bases were unremarkable. IMPRESSION: 1. Nonspecific nonobstructive bowel gas pattern. This document has been electronically signed by: Favian Adkins MD on 07/18/2025 16:19:23
--- NOTE | 2025-07-18 11:10 | ED_ITS ---
HPI - General Adult General Chief complaint: Fall Stated complaint: SYNCOPAL EPISODE Time Seen by Provider: 07/18/25 11:09 Source: patient, EMS and RN notes reviewed Mode of arrival: EMS Limitations: altered mental status (dementia) History of Present Illness ED Provider: Wilda Epps PA-C HPI narrative: 85-year-old female with medical history of dementia, hypothyroid, GERD, anxiety, arthritis, breast cancer with mastectomy (1986), not anticoagulated, presents to the ED by EMS from [facility] due to unwitnessed fall. Patient is somewhat a poor historian due to dementia. I called the facility and spoke to her Nurse MILIND Vickers who acted as historian. MILIND Vickers states this morning, while patient was on the toilet having a bowel movement she experienced an unwitnessed syncopal episode when her CARDIOLOGY CLINICAL NURSE SPECIALIST left the bathroom to get her clothing. When CARDIOLOGY CLINICAL NURSE SPECIALIST came back into bathroom patient was found kneeling on the ground with her head against the wall, then fell to her right side with right arm pinned under her body weight. MILIND Vickers was called right away and came to the bathroom and states patient had loss of consciousness for approximately 2 minutes without limb jerking or seizure-like activity. Alee states when patient came to she was confused, however patient is confused at baseline and the RN did not feel like she had increased confusion. Alee denies recent cough, fevers or illness. Patient denies chest pain, shortness of breath, dizziness, lightheadedness, abdominal pain, urinary symptoms MD complaint: fall with headstrike no AC Related Data Home Medications ?Medication ?Instructions ?Recorded ?Confirmed levothyroxine 75 mcg tablet 75 mcg PO DAILY 06/21/23 0 02/06/25 melatonin 1 mg tablet 1 mg PO BEDTIME PRN Sleep 02/06/25 Previous Rx's ?Medication ?Instructions ?Recorded famotidine 20 mg tablet 20 mg PO DAILY #20 tabs 10/04 Allergies Allergy/AdvReac Type Severity Reaction Status Date / Time azithromycin (From ZITHROMAX) Allergy Severe GENERIC Verified 07/18/25 11:23 ONLY-SEVERE ABD PAIN, abdominal pain codeine (CODEINE) Allergy Intermediate NAUSEA & Verified 07/18/25 11:23 VOMITING,FAINTED, nausea, vomiting, syncope erythromycin base Allergy Intermediate HIVES, ABD Verified 07/18/25 11:23 (ERYTHROMYCIN BASE) PAIN promethazine (From PHENERGAN) Allergy Intermediate DIZZY / Verified 07/18/25 11:23 NAUSEATED amoxicillin (Prevpac) Allergy Unknown Unknown Verified 07/18/25 11:23 clarithromycin (Prevpac) Allergy Unknown Unknown Verified 07/18/25 11:23 Review of Systems 2 Review of Systems: CONST: Negative for fever, body aches and chills. HENT: Negative for neck pain/stiffness, headache, congestion, sore throat, swelling. POS neck pain EYES: Negative for discharge/pain or vision changes. RESP: Negative for cough/hemoptysis and shortness of breath. CV: Negative chest pain, difficulty breathing, palpitations. ABD: Negative pain, nausea, vomiting. : Negative increase frequency, dysuria, blood in urine or stool. MUSC: Negative for muscle aches, edema. POS R shoulder pain SKIN: Negative rash, lesions/sores. NEURO: Negative headache, dizziness, weakness. [facility] Past Medical History Attestation statement: The following information was validated with the patient. Source: old records reviewed, nursing notes reviewed and other (Called MILIND Vickers at [facility]) Medical History Failure to thrive in adult Hematuria of unknown cause Hx of breast cancer Hypothyroid Arthritis History of anemia History of colitis Dysphagia Weight loss, unintentional GI bleed Hx of syncope Bright red blood per rectum Constipation GERD (gastroesophageal reflux disease) Anxiety Surgical History History of esophagogastroduodenoscopy (EGD) Hx of colonoscopy H/O left mastectomy History of ankle surgery Family History Family History Father No problems noted. 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 have visiting nurse or other home services: Yes Alcohol intake: never Patient Tobacco Use Status: Never used Tobacco Smoked in Last 30 Days: No Use of substances other than those prescribed or required for medical reasons: No Advance Directives: Yes Advance Directives on File: Yes Advance Directives Date on File: 10/20/20 service: No Current occupational status: retired Physical Exam ED Vital Signs: Vital Signs - 24 hr 07/18/25 11:19 07/18/25 11:24 07/18/25 15:31 Temperature 98 F 98 F 98.2 F Pulse Rate 66 66 65 Respiratory Rate 16 16 18 Blood Pressure 133/62 133/62 133/71 Pulse Oximetry 96 96 Oxygen Delivery Method Room Air Room Air 07/18/25 17:09 07/18/25 17:10 07/18/25 17:14 Temperature Pulse Rate 67 78 87 Respiratory Rate Blood Pressure 131/65 181/94 H 148/76 H Pulse Oximetry Oxygen Delivery Method BMI result Body Mass Index 25.4 GENERAL APPEARANCE: ?AxOx2 oriented to self and place only, C-collar in place, in mild distress due to pain HEENT: ?NC, AT. MMM. EOMI, clear conjunctiva, oropharynx clear. NECK: ?Supple without lymphadenopathy. C-collar in place, complaining of neck pain HEART:? Normal rate and regular rhythm, normal S1/S2, no m/r/g LUNGS:? CTAB, moving air well. No crackles or wheezes are heard. ABDOMEN: ?Soft, nontender, nondistended with hypoactive bowel sounds BACK: No CVAT, no obvious deformity. No thoracic or lumbar paraspinal tenderness, no midline tenderness, no bony step-offs, no anatomical abnormalities observed or palpated EXTREMITIES: ?Without cyanosis, clubbing or edema. Right anterior and posterior shoulder TTP, no overlying skin changes, no ecchymosis, strength 3/5 due to pain, restricted ROM due to pain, SILT, radial pulses 2+ bilaterally NEUROLOGICAL: ?Grossly nonfocal. Alert and oriented, moving all 4 extremities. Skin: ?Warm and dry without any rash. Medications Administered Discontinued Medications Generic Name Dose Route Start Last Admin Trade Name Freq PRN Reason Stop Dose Admin Lactated Ringer's 1,000 mls @ 999 mls/hr 07/18/25 11:49 07/18/25 12:29 Lr IV 07/18/25 12:49 999 mls/hr .Q1H1M ONE Administration Acetaminophen 1,000 mg in 100 mls @ 400 mls/hr 07/18/25 11:49 07/18/25 12:05 Ofirmev IV 07/18/25 12:03 400 mls/hr ONCE ONE Administration Medical Decision Making Medical Decision Making MDM Narrative: 85-year-old female with medical history of dementia, hypothyroid, GERD, anxiety, arthritis, breast cancer with mastectomy (1986), not anticoagulated, presents to the ED by EMS from [facility] due to unwitnessed fall. Patient is somewhat a poor historian due to dementia. I called the facility and spoke to her Nurse MILIND Vickers who acted as historian. MILIND Vickers states this morning, while patient was on the toilet having a bowel movement she experienced an unwitnessed syncopal episode when her CARDIOLOGY CLINICAL NURSE SPECIALIST left the bathroom to get her clothing. When CARDIOLOGY CLINICAL NURSE SPECIALIST came back into bathroom patient was found kneeling on the ground with her head against the wall, then fell to her right side with right arm pinned under her body weight. MILIND Vickers was called right away and came to the bathroom and states patient had loss of consciousness for approximately 2 minutes without limb jerking or seizure-like activity. Alee states when patient came to she was confused, however patient is confused at baseline and the RN did not feel like she had increased confusion. Alee denies recent cough, fevers or illness, however states patient has daily abdominal pain and constipation issues. VS during physical exam-BP 133/62, pulse rate of 66, respiratory rate of 16, afebrile with oral temp of 98?, O2 saturation 96% on room air. On physical exam patient in C-collar, complaining of neck/shoulder pain, patient alert and oriented x2 to self/place only. Head normocephalic, atraumatic, no hematomas appreciated. Right shoulder with pain to palpation of anterior and posterior aspect, no ecchymosis or skin changes. Abdomen soft, nondistended, nontender, no guarding, no suprapubic tenderness. No neurological deficits noted. Plan: Labs, UA, EKG, CT head/brain/C-spine, XR R shoulder, KUB to evaluate for ACS, ICH, dysrhythmia, electrolyte abnormality, UTI Course 15:30- Labs without leukocytosis, H and H stable with HGB of 13.0, HCT of 38.9, no evidence of electrolyte abnormality. TSH suppressed at 0.08, patient without features of thyroid storm (afebrile, no increased altered mental status, no tachyarrhythmia, no hypotension), hemodynamically stable. Decreased TSH maybe cause a syncopal episode, however episode occurred after straining on the toilet to have bowel movement more likely vasovagal. EKG reveals normal sinus rhythm, no ST-elevation/depression, T-wave abnormality, initial troponin 2.8, 2nd troponin 4.3, without chest pain 17:34- CT head brain/C-spine negative for acute abnormalities, C-spine fracture. KUB negative for obstructive bowel pattern, with mild stool burden. XR shoulder negative for fracture or dislocation. Orthostatic vitals positive. I spoke to Hospitalist Dr. Torrez who will admit to medicine. Differential Diagnosis Differential Diagnoses: The differential diagnosis associated with the presentation includes ACS ICH Orthostatic hypotension Vasovagal syncope Dysrhythmia Electrolyte abnormality UTI Admission/Observation Consideration of admission/observation: Escalation of care including admission/observation considered Lab Data MDM Lab Attestation statement: I reviewed the patient's lab results. 07/18/25 12:03 07/18/25 12:03 Labs: Lab Results 07/18/25 07/18/25 07/18/25 Range/Units 12:03 15:02 16:40 WBC 5.2 (4.8-10.8) X10*3/uL RBC 4.65 (4.20-5.50) X10*6/uL Hgb 13.0 (12.0-16.0) g/dl Hct 38.9 (37.0-47.0) % MCV 83.7 (80.0-98.0) fL MCH 28.0 (27.0-33.0) pg MCHC 33.4 (31.0-35.0) g/dl RDW 13.9 (11.0-16.0) % Plt Count 200 (160-400) X10*3/uL MPV 9.9 (9.4-12.3) fL Immature Gran % (Auto) 0.2 (0.0-0.4) % Neut % (Auto) 68.5 (45-73) % Lymph % (Auto) 21.6 (20-40) % Towns % (Auto) 8.2 (2-11) % Eos % (Auto) 1.1 (0-4) % Baso % (Auto) 0.4 (0-2) % Lymph # (Auto) 1.1 L (1.2-4.9) X10*3/uL Towns # (Auto) 0.4 (0.1-1.2) X10*3/uL Eos # (Auto) 0.1 (0.0-0.4) X10*3/uL Baso # (Auto) 0.0 (0.0-0.2) X10*3/uL Abs Immat Gran (auto) 0.01 (0.00-0.03) X10*3/uL Absolute Neuts (auto) 3.6 (2.0-8.3) x10*3/uL Absolute Nucleated RBC 0.000 (0.0-0.012) X10*3/uL Nucleated RBC % (auto) 0.0 (0.0-0.2) /100WBC Sodium 142 (135-145) mmol/L Potassium 4.3 (3.3-5.1) mmol/L Chloride 107 (96-108) mmol/L Carbon Dioxide 28 (22-29) mmol/L Anion Gap 11 L (12-20) BUN 19 H (9-16) mg/dL Creatinine 1.05 (0.5-1.4) mg/dL Estim Creat Clear Calc 32.0 Estimated GFR 50 Random Glucose 107 (60-115) mg/dL Estimat Average Glucose 120 mg/dL Hemoglobin A1c % 5.8 (<6.0) % Calcium 9.9 (8.4-10.2) mg/dL Magnesium 2.0 (1.6-2.6) mg/dL Total Bilirubin 0.4 (0.0-1.0) mg/dL AST 33 H (5-31) U/L ALT 19 (0-31) U/L Alkaline Phosphatase 83 (39-117) U/L Total Creatine Kinase 106 (26-140) U/L Troponin I High Sens 2.8 4.3 D (<3.5-17.0) ng/L Total Protein 7.1 (6.5-8.0) g/dL Albumin 4.1 (3.5-5.0) g/dL TSH 0.08 L (0.32-4.0) uIU/mL Free T4 1.36 (0.71-1.85) ng/dL Urine Color Yellow Urine Appearance Clear Urine pH 7.5 (5.0-9.0) Ur Specific [place] <= 1.005 (1.005-1.025) Urine Protein Negative (Neg-Trace) mg/dL Urine Glucose (UA) Negative (Negative) mg/dL Urine Ketones Negative (Negative) mg/dL Urine Blood Negative (Negative) Urine Nitrite Negative (Negative) Ur Leukocyte Esterase Negative (Negative) Independent Interpretation I performed an independent interpretation of an: EKG and Plain X-Ray Interpretation: I personally interpreted the EKG which revealed a normal sinus rhythm without ST-elevation/depression, T-wave abnormality, or long QT Vent. Rate : 67 BPM Atrial Rate : 67 BPM P-R Int : 182 ms QRS Dur : 82 ms QT Int : 410 ms P-R-T Axes : 81 12 40 degrees QTcB Int : 433 ms Normal sinus rhythm Moderate voltage criteria for LVH, may be normal variant ( R in aVL , Sokolow-Horowitz ) Septal infarct , age undetermined I personally interpreted the KUB I personally interpreted the XR R shoulder Radiology Impression Discussion of test interpretation with radiology: I have reviewed the radiologist's reading. Radiologist Impression: CT head/brain FINDINGS: The visualized paranasal sinuses are clear. Small amount of fluid present within the left mastoid air cells. No calvarial fracture. 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 No evidence of mass or mass effect. No intracranial hemorrhage or abnormal extra-axial fluid collection. The ventricles are proportional with the degree of mild to moderate global cerebral volume loss without evidence of hydrocephalus. Basilar cisterns are patent. There are periventricular areas of low attenuation compatible with [id number] white matter small vessel disease. Posterior fossa appears unremarkable. IMPRESSION: 1. No acute intracranial findings. This document has been electronically signed by: Favian Adkins MD on 07/18/2025 14:12:22 Dictated By: Favian Adkins MD Signed By: <Electronically signed by Favian Adkins MD in OV> 07/18/[address] C-spine FINDINGS: Normal vertebral body alignment. Vertebral body heights are maintained. No evidence of acute vertebral body injury. Sclerotic lesion within the posterior aspect of the T1 vertebral body, unchanged and likely representing a bone island. Skull base and intracranial structures appear normal. Apical pleural thickening with mild bronchiectasis, similar to prior imaging. Mild multilevel facet joint arthrosis throughout the cervical spine without significant neural foraminal narrowing. IMPRESSION: 1. No evidence of acute injury to the cervical spine. This document has been electronically signed by: Favian Adkins MD on 07/18/2025 14:16:01 Dictated By: Favian Adkins MD Signed By: <Electronically signed by Favian Adkins MD in [place]> 07/18/25 1417 XR R shoulder FINDINGS: Proximal right humerus, the right scapula, and the right clavicle appear intact. Humeral head is appropriately seated in the glenoid. Moderate hypertrophy of the right acromioclavicular joint. Visualized portions of the right lung are clear. IMPRESSION: 1. No radiographic evidence of acute injury to the right shoulder. This document has been electronically signed by: Favian Adkins MD on 07/18/2025 16:15:01 Dictated By: Favian Adkins MD Signed By: <Electronically signed by Favian Adkins MD in OV> 07/18/25 1616 XR KUB FINDINGS: Cholecystectomy clips. Normal bowel distention. Pelvic phleboliths present. No pneumoperitoneum identified. Mild stool burden. No fracture identified. Moderate lumbar spondylosis. Visualized portions of the lung bases were unremarkable. IMPRESSION: 1. Nonspecific nonobstructive bowel gas pattern. Single view of the abdomen. COMPARISON: None FINDINGS: Cholecystectomy clips. Normal bowel distention. Pelvic phleboliths present. No pneumoperitoneum identified. Mild stool burden. No fracture identified. Moderate lumbar spondylosis. Visualized portions of the lung bases were unremarkable. IMPRESSION: 1. Nonspecific nonobstructive bowel gas pattern. This document has been electronically signed by: Favian Adkins MD on 07/18/2025 16:19:23 Dictated By: Favian Adkins MD Signed By: <Electronically signed by Favian Adkins MD in OV> 07/18/25 1620 Independent Historian Clinical information obtained from an independent historian. History obtained from or confirmed by: EMS and Other (MILIND Vickers at [facility]) External Record Review External record reviewed: Inpatient record, Office record and Outpatient record Chronic Conditions Patient?s care impacted by: Other (Dementia, hypothyroidism, GERD, constipation, anxiety) Critical Care Time Critical Care Time Total Critical Care Time: 38 Attestation: I personally provided 38 minutes of critical care time in the evaluation and management of the elderly patient presenting with syncope. The patient was at high risk of sudden clinically significant deterioration, including recurrent loss of consciousness, arrhythmia, cardiogenic shock, or other life-threatening complications. Discharge Plan Discharge Clinical Impression: Orthostatic hypotension Patient Disposition: Admitted As Inpatient
--- NOTE | 2025-07-18 11:24 | ECG_ITS ---
Test Reason : FALL Blood Pressure : */* mmHG Vent. Rate : 67 BPM Atrial Rate : 67 BPM P-R Int : 182 ms QRS Dur : 82 ms QT Int : 410 ms P-R-T Axes : 81 12 40 degrees QTcB Int : 433 ms Normal sinus rhythm Moderate voltage criteria for LVH, may be normal variant ( R in aVL , Sokolow-Horowitz ) Septal infarct , age undetermined Abnormal ECG When compared with ECG of 08-Apr-2025 10:54, No significant changes seen Referred By: Supriya Astudillo Electronically Signed By: SHAHRZAD PROCOTR MD
[2025-07-18 12:08] LABS: MANUAL DIFF FLAG NO
[2025-07-18 12:09] LABS: Hematocrit 38.9 % (37.0-47.0); Hemoglobin 13.0 g/dl (12.0-16.0); Imm Gran Abs Auto 0.01 X10*3/uL (0.00-0.03); Imm Gran Pct Auto 0.2 % (0.0-0.4); Lymphocytes Absolute Auto 1.1 X10*3/uL (1.2-4.9); Mean Corpuscular HGB Conc 33.4 g/dl (31.0-35.0); Mean Corpuscular Hemoglobin 28.0 pg (27.0-33.0); Mean Corpuscular Volume 83.7 fL (80.0-98.0); NRBC Abs Auto 0.000 X10*3/uL (0.0-0.012); NRBC Pct Auto 0.0 /100WBC (0.0-0.2); Platelet Count 200 X10*3/uL (160-400); Red Blood Count 4.65 X10*6/uL (4.20-5.50); White Blood Count 5.2 X10*3/uL (4.8-10.8)
[2025-07-18 12:27] LABS: Alanine Aminotransferase 19 U/L (0-31); Albumin Level 4.1 g/dL (3.5-5.0); Alkaline Phosphatase 83 U/L (39-117); Anion Gap 11 (12-20); Aspartate Amino Transferase 33 U/L (5-31); Blood Urea Nitrogen 19 mg/dL (9-16); Calcium 9.9 mg/dL (8.4-10.2); Carbon Dioxide 28 mmol/L (22-29); Chloride 107 mmol/L (96-108); Creatinine Clr Calc Pharmacy 32.0; Estimated Glomerular Filt Rate 50; Magnesium 2.0 mg/dL (1.6-2.6); Potassium 4.3 mmol/L (3.3-5.1); Sodium 142 mmol/L (135-145); Total Protein 7.1 g/dL (6.5-8.0)
[2025-07-18] MEDS: Lactated Ringers 1,000 ML 999 ML IV (12:29)
[2025-07-18 12:34] LABS: Troponin-I High Sensitivity 2.8 ng/L (<3.5-17.0)
[2025-07-18 13:30] LABS: Free T4 (Free Thyroxine) 1.36 ng/dL (0.71-1.85)
[2025-07-18 15:10] LABS: Appearance Urine Clear; Glucose Urine UA Negative (Negative); PH 7.5 (5.0-9.0); Specific Gravity - Urine <= 1.005 (1.005-1.025)
[2025-07-18 17:03] LABS: Troponin-I High Sensitivity 4.3 ng/L (<3.5-17.0)
--- NOTE | 2025-07-18 18:05 | PM.IMHP ---
History of Present Illness Date of Service: 07/18/25 Attending physician on admission: Orlando Torrez Chief Complaint: syncopal episode diplomatic interpreter used for interview Pt is an 85 yo Syriac speaking female with PMH anxiety, chronic intermittent dizziness, colitis, GI bleed, hypothyroidism, , GERD, constipation, breast cancer status post left mastectomy and dementia, osteoarthritis (patient unable to provide medical history, all obtained from medical record) presents to the emergency department today from her long-term facility status post unwitnessed fall off commode which resulted in syncope and loss of consciousness for approximately 2 minutes with no seizure activity while having a bowel movement on the commode. DRYING MACHINE TENDER had stepped away while pt was on commode to obtain clothing. Per emergency room provider's note when DRYING MACHINE TENDER came back in the room patient was found kneeling on the ground with her head against the wall and then fell to her right side with right arm pinned on her body weight. The RN on the floor was called and that is when patient had a loss of consciousness for approximately 2 minutes without any seizure like activity or limb jerking. Patient was confused upon awakening the patient's baseline is confusion so nursing felt there was not any increase in her level of confusion or altered mental status. Patient is not currently on anticoagulation. Patient currently denies any headache, shortness of breath at rest or chest pain. Patient is currently eating her dinner using utensils independently. Head is normocephalic atraumatic. Workup in the ED included CT scan of the head and cervical spine which were all negative for acute findings. Right shoulder x-ray negative for any fracture or dislocation. Patient does have good range of motion in the right upper extremity. KUB also completed and notes a mild stool burden with no evidence of ileus. Incidentally patient's TSH was 0.08 and is currently on levothyroxine 75 mcg daily. Patient has a evidence of subclinical hyperthyroidism most likely due to her levothyroxine dose. ECG NSR, normal Qtc, MO interval normal, troponin neg X2, BNP normal. Patient being admitted for syncopal workup, likely vasovagal from straining during bowel movement. Patient does confirm that she has problems with moving her bowels. Patient does not appear to be on a bowel regimen at her long-term facility at this time. Review of Systems Review of Systems: Patient denies any chest pain, shortness of breath at rest, nausea, vomiting or abdominal pain. Patient denies any headache. Yes all other systems are reviewed and are negative [facility] Medical History Failure to thrive in adult Hematuria of unknown cause Hx of breast cancer Hypothyroid Arthritis History of anemia History of colitis Dysphagia Weight loss, unintentional GI bleed Hx of syncope Bright red blood per rectum Constipation GERD (gastroesophageal reflux disease) Anxiety Cognitive capacity: Alert to self Functional capacity: uses cane/walker Patient : No Family History Father No problems noted. Mother Hx of colon cancer, stage IV Surgical History History of esophagogastroduodenoscopy (EGD) Hx of colonoscopy H/O left mastectomy History of ankle surgery Social History Household Members: None Housing: Apartment Do you presently have visiting nurse or other home services: Yes Alcohol intake: never Patient Tobacco Use Status: Never used Tobacco Smoked in Last 30 Days: No Use of substances other than those prescribed or required for medical reasons: No Advance Directives: Yes Advance Directives on File: Yes Advance Directives Date on File: 10/20/20 service: No Current occupational status: retired Ebola Risk: Travel/Contact With Anyone From Affected Area/s: No Has Patient Experienced Ebola Symptoms: No Meds Allergies Allergy/AdvReac Type Severity Reaction Status Date / Time azithromycin (From ZITHROMAX) Allergy Severe GENERIC Verified 07/18/25 11:23 ONLY-SEVERE ABD PAIN, abdominal pain codeine (CODEINE) Allergy Intermediate NAUSEA & Verified 07/18/25 11:23 VOMITING,FAINTED, nausea, vomiting, syncope erythromycin base Allergy Intermediate HIVES, ABD Verified 07/18/25 11:23 (ERYTHROMYCIN BASE) PAIN promethazine (From PHENERGAN) Allergy Intermediate DIZZY / Verified 07/18/25 11:23 NAUSEATED amoxicillin (Prevpac) Allergy Unknown Unknown Verified 07/18/25 11:23 clarithromycin (Prevpac) Allergy Unknown Unknown Verified 07/18/25 11:23 Active Medications: Current Medications Acetaminophen (Acetaminophen 325 Mg Tablet) 650 mg PO Q6H PRN PRN Reason: Pain, Mild 1-3,fever,headache Albuterol/Ipratropium (Albuterol/Iprat 2.5/0.5mg 3 Ml Ampul.Neb) 3 ml INHALE Q4H PRN PRN Reason: Shortness of Breath/Wheezing Calcium Carbonate (Calcium Carbonate 750 Mg Tab.Chew) 750 mg PO Q4H PRN PRN Reason: Heartburn Enoxaparin Sodium (Enoxaparin Sodium 40 Mg/0.4 Ml Syringe) 40 mg SUBCUT Q24H JABARI Magnesium Hydroxide (Milk Of Magnesia 30 Ml Oral.Susp) 30 ml PO DAILY PRN PRN Reason: Constipation Melatonin (Melatonin 3 Mg Tablet) 6 mg PO BEDTIME PRN PRN Reason: Insomnia Ondansetron HCl (Ondansetron Hcl 4 Mg/2 Ml Vial) 4 mg IVPUSH Q8H PRN PRN Reason: Nausea and Vomiting Polyethylene Glycol (Polyethylene Glycol 3350 17 Gm Powd.Pack) 17 gm PO DAILY PRN PRN Reason: Constipation Senna (Sennosides 8.6 Mg Tablet) 17.2 mg PO BEDTIME JABARI Sodium Chloride (0.9 % Sodium Chloride Flush 3 Ml Syringe) 3 ml IVFLUSH QSHIFT [facility] Home Medications ?Medication ?Instructions ?Recorded ?Confirmed ?Last Taken ?Type levothyroxine 75 mcg tablet 75 mcg PO DAILY 06/21/23 02/06/25 Unknown History melatonin 1 mg tablet 1 mg PO BEDTIME PRN Sleep 02/06/25 02/06/25 Unknown History Physical Exam Vital Signs and Narrative: Vital Signs: Last Vital Signs Temp 98.2 F 07/18/25 15:31 Pulse 87 07/18/25 17:14 Resp 18 07/18/25 15:31 BP 148/76 H 07/18/25 17:14 Pulse Ox 96 07/18/25 15:31 O2 Del Method Room Air 07/18/25 15:31 BMI result Body Mass Index 25.4 Alert and orientated toself only, unable to give good history, patient stated she was 65 years of age and [address] down [address]. Neuro: Patient can follow commands, able to comprehend full time staff interpreter , pt using utensils able to feed self EYES: PERRLA, EOM intact, sclera nonicteric, conjuntiva pink ENT: hearing intact, uvula midline, lips moist, nares patent no epistaxis Cardiac: S1 S2 RRR, no murmur, no JVD, no edema in Lower ext Pulmonary: lungs clear to auscultation B Abdominal: BS active in all 4 quadrants, no guarding, tenderness, rebounding MSK: strength 4/5 upper and 2/5 lower extremities : no CVA tenderness no bladder distension Extremities: no edema in lower extremities, PT and DP pulses palpable +2 Psych: mood stable, judgement and insight poor Results Labs 07/18/25 12:03 07/18/25 12:03 Labs: Laboratory Results - last 24 hr 07/18/25 07/18/25 12:03 15:02 MCV 83.7 MCH 28.0 MCHC 33.4 RDW 13.9 Plt Count 200 MPV 9.9 Immature Gran % (Auto) 0.2 Neut % (Auto) 68.5 Lymph % (Auto) 21.6 [place] % (Auto) 8.2 Eos % (Auto) 1.1 Baso % (Auto) 0.4 Lymph # (Auto) 1.1 L [place] # (Auto) 0.4 Eos # (Auto) 0.1 Baso # (Auto) 0.0 Abs Immat Gran (auto) 0.01 Absolute Neuts (auto) 3.6 Absolute Nucleated RBC 0.000 Nucleated RBC % (auto) 0.0 Anion Gap 11 L Estim Creat Clear Calc 32.0 Estimated GFR 50 Random Glucose 107 Calcium 9.9 Magnesium 2.0 Total Bilirubin 0.4 AST 33 H ALT 19 Alkaline Phosphatase 83 Total Creatine Kinase 106 Total Protein 7.1 Albumin 4.1 TSH 0.08 L Free T4 1.36 Urine Color Yellow Urine Appearance Clear Urine pH 7.5 Ur Specific [place] <= 1.005 Urine Protein Negative Urine Glucose (UA) Negative Urine Ketones Negative Urine Blood Negative Urine Nitrite Negative Ur Leukocyte Esterase Negative ECG Attestation: I personally reviewed and interpreted this ECG as follows: (NSR normal MO and Qtc ) Prior ECG tracings: available for review Imaging Comment: KUB IMPRESSION: 1. Nonspecific nonobstructive bowel gas pattern. [place] Xray IMPRESSION: 1. No radiographic evidence of acute injury to the right shoulder. Cervical Spine CT IMPRESSION: 1. No evidence of acute injury to the cervical spine. HEAD CT negative for acute findings Assessment and Plan (1) Syncope: Qualifiers: Syncope type: unspecified Qualified Code(s): R55 - Syncope and collapse Status: Acute Plan Pt is an 85 yo nepalese speaking female with PMH anxiety, chronic intermittent dizziness, colitis, GI bleed, hypothyroidism, , GERD, constipation, breast cancer status post left mastectomy and dementia, osteoarthritis (patient unable to provide medical history, all obtained from medical record) presents to the emergency department today from her long-term facility status post unwitnessed fall off commode which resulted in syncope and loss of consciousness for approximately 2 minutes with no seizure activity while having a bowel movement on the commode. Patient states she can not walk and is having problems moving her bowels in general. Patient does have dementia and baseline confusion. Syncope/ 2 minute LOC ? Vasovagal as episode occurred with bowel movement on commode, hx of constipation with straining not on bowel regimen in SNF CT head, cervical spine negative Orthostaitcs Q8H X3 Echo ordered (no record of echo in chart) Cardiology consulted Telemetry Constipation with straining /mild stool burden on KUB Pt asymptomatic with no N/V, abd pain on exam Bowel regimen initiated, dulcolax now, polyethylene glycol daily, senna, fiber - should continue with DC plan Monitoring recommended for commode use Subclinical Hyperthyroidism on Levothyroxione Lowered dose to 50 mcgs daily (normally on 75 mcg) FT3 pending GERD continue famotidine Dementia/ risk for fall No issues with agitation or anxiety Fall preventions measures in place 1:1 not indicated on admisson Full assist with IADL's DVT prophylaxis : Lovenox FULL CODE MED REC PENDING Quality Stroke Does the patient have a stroke diagnosis?: No Reason for No Anti-thrombotic by Day Two: N/A - Med Ordered VTE Prior VTE?: No VTE Risk Level:: Medical - moderate - high VTE Device Contraindication: N/A - Device Ordered VTE Drug Contraindication: N/A - Med Ordered
[2025-07-18 18:24] LABS: Hemoglobin A1C 134.3546 umol/L; Total Hemoglobin (HGBA1C) 3398.3999 umol/L
--- NOTE | 2025-07-18 23:28 | PC.NURSE ---
Report received and care assumed at 2300. During report the pt's camera alarm could be heard sounding off a few times as the patient was noted to attempt to exit the bed. Upon RN's arrival to bedside for primary eval, the pt is found in the bed, pleasant and awake without distress noted. The pt offers no complaints, denies any current needs, purewick in place and draining well. The pt has bed alarm in place for safety and re-orientation to the room and callbell provided.
[2025-07-19 04:38] LABS: MANUAL DIFF FLAG NO
[2025-07-19 04:39] LABS: Hematocrit 36.8 % (37.0-47.0); Hemoglobin 12.5 g/dl (12.0-16.0); Imm Gran Abs Auto 0.01 X10*3/uL (0.00-0.03); Imm Gran Pct Auto 0.2 % (0.0-0.4); Lymphocytes Absolute Auto 2.0 X10*3/uL (1.2-4.9); Mean Corpuscular HGB Conc 34.0 g/dl (31.0-35.0); Mean Corpuscular Hemoglobin 28.3 pg (27.0-33.0); Mean Corpuscular Volume 83.3 fL (80.0-98.0); NRBC Abs Auto 0.000 X10*3/uL (0.0-0.012); NRBC Pct Auto 0.0 /100WBC (0.0-0.2); Platelet Count 198 X10*3/uL (160-400); Red Blood Count 4.42 X10*6/uL (4.20-5.50); White Blood Count 6.0 X10*3/uL (4.8-10.8)
[2025-07-19 04:56] LABS: Anion Gap 14 (12-20); Blood Urea Nitrogen 18 mg/dL (9-16); Calcium 9.7 mg/dL (8.4-10.2); Carbon Dioxide 26 mmol/L (22-29); Chloride 109 mmol/L (96-108); Creatinine Clr Calc Pharmacy 33.9; Estimated Glomerular Filt Rate 53; Potassium 4.3 mmol/L (3.3-5.1); Sodium 145 mmol/L (135-145)
[2025-07-19 05:27] VITALS: BP 148/72; PULSE 57; RESP 14; TEMP 36.6; O2SAT 98
[2025-07-19 07:47] VITALS: BP 111/86; PULSE 63; RESP 14; TEMP 36.6; O2SAT 96
--- NOTE | 2025-07-19 08:55 | PC.NURSE ---
assumed care of patient at 0700, patient is awake and alert, resp even and unlabored. patient VSS. patient repositioned in bed, sat up to eat breakfast. patient purewick repositioned. patient linens are clean and dry/ patient has tele sitter in place, patient in hospital bed, lowest locked position with bed alarm on for fall safety.
--- NOTE | 2025-07-19 09:25 | P.CONCA_ITS ---
History of Present Illness History of Present Illness Date of Service: 07/19/25 Requesting physician: Malia Sellers Consult reason: other (Reported syncope) Chief complaint: syncope Narrative: I was consulted to see Kaley in cardiology consultation today for reported syncope from residential facility. We had a site interpreter in the room but she was able to speak mostly Lebanese although did not provide any comprehensible history. Patient does not recall as to why she is in the hospital. However history was obtained from the chart. It was reported that patient was in the commode yesterday straining because she was constipated. The SET UP MACHINIST had left her side and when she found her she was on the floor trying to pick herself up. Nursing was called from the floor and then it was reported that she passed out. There was no clear seizure-like activities reported. No vitals sinus performed at that time. No CPR performed. Patient then regained consciousness and reported that she was unconscious for about 2 minutes. Patient was then brought to the emergency room. EKG shows normal sinus rhythm with LVH criteria with lateral small Q-waves which could be insignificant. Overnight no arrhythmias were detected. She has no obvious orthostatic vitals noted. She is not significantly anemic. Patient denies any chest pain or shortness of breath. Is not oriented to time place or person. Cardiology consult was sought because of possible syncopal episode. Review of Systems 2 Review of Systems: Yes Unobtainable due to mental status Neurologic: Reports confusion Psychiatric: Psychiatric: Reports confusion [facility] Past Medical History Medical History Failure to thrive in adult Hematuria of unknown cause Hx of breast cancer Hypothyroid Arthritis History of anemia History of colitis Dysphagia Weight loss, unintentional GI bleed Hx of syncope Bright red blood per rectum Constipation GERD (gastroesophageal reflux disease) Anxiety Family History Family History Father No problems noted. Mother Hx of colon cancer, stage IV Surgical History Surgical History History of esophagogastroduodenoscopy (EGD) Hx of colonoscopy H/O left mastectomy History of ankle surgery Social History Social History (Reviewed 08/17/25 @ 19:18 by [facility]IO [facility] DOTHANBecky Household Members: None Housing: Apartment Do you presently have visiting nurse or other home services: Yes Alcohol intake: never Patient Tobacco Use Status: Never used Tobacco Smoked in Last 30 Days: No Use of substances other than those prescribed or required for medical reasons: No Advance Directives: Yes Advance Directives on File: Yes Advance Directives Date on File: 10/20/20 Patient : No service: No Current occupational status: retired Travel History Ebola Risk: Travel/Contact With Anyone From Affected Area/s: No Has Patient Experienced Ebola Symptoms: No Meds Allergies Allergy/AdvReac Type Severity Reaction Status Date / Time azithromycin (From ZITHROMAX) Allergy Severe GENERIC Verified 07/18/25 11:23 ONLY-SEVERE ABD PAIN, abdominal pain codeine (CODEINE) Allergy Intermediate NAUSEA & Verified 07/18/25 11:23 VOMITING,FAINTED, nausea, vomiting, syncope erythromycin base Allergy Intermediate HIVES, ABD Verified 07/18/25 11:23 (ERYTHROMYCIN BASE) PAIN promethazine (From PHENERGAN) Allergy Intermediate DIZZY / Verified 07/18/25 11:23 NAUSEATED amoxicillin (Prevpac) Allergy Unknown Unknown Verified 07/18/25 11:23 clarithromycin (Prevpac) Allergy Unknown Unknown Verified 07/18/25 11:23 Active Medications: Current Medications Acetaminophen (Acetaminophen 325 Mg Tablet) 650 mg PO Q6H PRN PRN Reason: Pain, Mild 1-3,fever,headache Albuterol/Ipratropium (Albuterol/Iprat 2.5/0.5mg 3 Ml Ampul.Neb) 3 ml INHALE Q4H PRN PRN Reason: Shortness of Breath/Wheezing Calcium Carbonate (Calcium Carbonate 750 Mg Tab.Chew) 750 mg PO Q4H PRN PRN Reason: Heartburn Calcium Polycarbophil (Calcium Polycarbophil Tablet) 1 tab PO DAILY [facility] Enoxaparin Sodium (Enoxaparin Sodium 40 Mg/0.4 Ml Syringe) 40 mg SUBCUT Q24H [facility] Last Admin: 07/19/25 00:04 Dose: Not Given Levothyroxine Sodium (Levothyroxine Sodium 50 Mcg Tablet) 50 mcg PO DAILY@0600 [facility] Last Admin: 07/19/25 06:44 Dose: 50 mcg Magnesium Hydroxide (Milk Of Magnesia 30 Ml Oral.Susp) 30 ml PO DAILY PRN PRN Reason: Constipation Melatonin (Melatonin 3 Mg Tablet) 6 mg PO BEDTIME PRN PRN Reason: Insomnia Ondansetron HCl (Ondansetron Hcl 4 Mg/2 Ml Vial) 4 mg IVPUSH Q8H PRN PRN Reason: Nausea and Vomiting Polyethylene Glycol (Polyethylene Glycol 3350 17 Gm Powd.Pack) 17 gm PO DAILY [facility] Senna (Sennosides 8.6 Mg Tablet) 17.2 mg PO BEDTIME [facility] Last Admin: 07/19/25 00:02 Dose: Not Given Sodium Chloride (0.9 % Sodium Chloride Flush 3 Ml Syringe) 3 ml IVFLUSH QSHIFT [facility] Last Admin: 07/19/25 07:53 Dose: Not Given Home Medications ?Medication ?Instructions ?Recorded ?Confirmed ?Last Taken ?Type levothyroxine 75 mcg tablet 75 mcg PO DAILY@0600 06/2107/19/25 Unknown History acetaminophen 325 mg tablet 650 mg PO Q6H PRN Fever Or Pain 07/19/25 07/19/25 Unknown History bisacodyl 10 mg rectal suppository 10 mg NC DAILY PRN constipation, 07/19/25 07/19/25 Unknown History if no bm in 8 hours magnesium hydroxide 400 mg/5 mL 30 ml PO DAILY PRN con stipation 07/19/25 07/19/25 Unknown History oral suspension (Milk of Magnesia) (step 1) if bm in 3 days melatonin 3 mg tablet 3 mg PO BEDTIME PRN Insomnia 07/19/25 07/19/25 Unknown History ondansetron HCl 4 mg tablet 4 mg PO Q8H PRN Nausea And Vomiting 07/19/25 07/19/25 Unknown History pantoprazole 40 mg tablet,delayed 40 mg PO DAILY@0630 07/19/25 07/19/25 Unknown History release sennosides 8.6 mg tablet (senna) 8.6 mg PO BID 5 07/19/25 Unknown History sodium phosphates 19 gram-7 118 ml NC BEDTIME PRN cons tipation 07/19/25 07/19/25 Unknown History gram/118 mL enema (Fleet Enema) (step 3) if no bm for 8 hr after supp Physical Exam 2 Vital Signs: Vital Signs: Last Vital Signs Temp 97.9 F 07/19/25 07:47 Pulse 63 07/19/25 07:47 Resp 14 07/19/25 07:47 BP 111/86 07/19/25 07:47 Pulse Ox 96 07/19/25 07:47 O2 Del Method Room Air 07/19/25 07:47 BMI result Body Mass Index 25.4 Const: General: cooperative, comfortable, no acute distress, alert, awake and confusion Nutritional Appearance: thin Orientation/consciousness: c onfusion HEENT: Head: Yes normocephalic and Yes atraumatic Neck: Neck: Yes trachea midline, Yes supple and Yes no JVD Resp: Effort & Inspection: normal respiratory effort Auscultation: clear to auscultation bilaterally Cardio: Jugular venous distension: no JVD Rhythm: regular rhythm Heart sounds: S1 normal heart sound present, S2 normal heart sound present, no click, no gallops and no murmurs GI: Auscultation: normal bowel sounds Skin: General skin exam: no rashes or lesions noted Neuro: General: no focal motor deficits and confusion Extrem: General: Yes no clubbing, cyanosis or edema Objective Labs and Meds 07/19/25 04:04 07/19/25 04:04 Lab results: Laboratory Results - last 24 hr 07/18/25 07/18/25 07/18/25 12:03 15:02 16:40 WBC 5.2 RBC 4.65 Hgb 13.0 Hct 38.9 MCV 83.7 MCH 28.0 MCHC 33.4 RDW 13.9 Plt Count 200 MPV 9.9 Immature Gran % (Auto) 0.2 Neut % (Auto) 68.5 Lymph % (Auto) 21.6 [place] % (Auto) 8.2 Eos % (Auto) 1.1 Baso % (Auto) 0.4 Lymph # (Auto) 1.1 L [place] # (Auto) 0.4 Eos # (Auto) 0.1 Baso # (Auto) 0.0 Abs Immat Gran (auto) 0.01 Absolute Neuts (auto) 3.6 Absolute Nucleated RBC 0.000 Nucleated RBC % (auto) 0.0 Sodium 142 Potassium 4.3 Chloride 107 Carbon Dioxide 28 Anion Gap 11 L BUN 19 H Creatinine 1.05 Estim Creat Clear Calc 32.0 Estimated GFR 50 Random Glucose 107 Estimat Average Glucose 120 Hemoglobin A1c % 5.8 Calcium 9.9 Magnesium 2.0 Total Bilirubin 0.4 AST 33 H ALT 19 Alkaline Phosphatase 83 Total Creatine Kinase 106 Troponin I High Sens 2.8 4.3 D Total Protein 7.1 Albumin 4.1 TSH 0.08 L Free T4 1.36 Urine Color Yellow Urine Appearance Clear Urine pH 7.5 Ur Specific [place] <= 1.005 Urine Protein Negative Urine Glucose (UA) Negative Urine Ketones Negative Urine Blood Negative Urine Nitrite Negative Ur Leukocyte Esterase Negative 07/19/25 04:04 WBC 6.0 RBC 4.42 Hgb 12.5 Hct 36.8 L MCV 83.3 MCH 28.3 MCHC 34.0 RDW 13.8 Plt Count 198 MPV 9.8 Immature Gran % (Auto) 0.2 Neut % (Auto) 54.9 Lymph % (Auto) 32.9 [place] % (Auto) 10.0 Eos % (Auto) 1.5 Baso % (Auto) 0.5 Lymph # (Auto) 2.0 [place] # (Auto) 0.6 Eos # (Auto) 0.1 Baso # (Auto) 0.0 Abs Immat Gran (auto) 0.01 Absolute Neuts (auto) 3.3 Absolute Nucleated RBC 0.000 Nucleated RBC % (auto) 0.0 Sodium 145 Potassium 4.3 Chloride 109 H Carbon Dioxide 26 Anion Gap 14 BUN 18 H Creatinine 0.99 Estim Creat Clear Calc 33.9 Estimated GFR 53 Random Glucose 91 Estimat Average Glucose Hemoglobin A1c % Calcium 9.7 Magnesium Total Bilirubin AST ALT Alkaline Phosphatase Total Creatine Kinase Troponin I High Sens Total Protein Albumin TSH Free T4 Urine Color Urine Appearance Urine pH Ur Specific [place] Urine Protein Urine Glucose (UA) Urine Ketones Urine Blood Urine Nitrite Ur Leukocyte Esterase Assessment and Plan (1) Syncope: Qualifiers: Syncope type: unspecified Qualified Code(s): R55 - Syncope and collapse Status: Acute Reported syncope in this elderly woman while she was straining bowel movement although history is very incomplete. Patient herself with not able to provide much history. Possible etiologies could include vasovagal syncope. Orthostatic syncope is likely although there was no clear recording of orthostatic hypotension. Continue monitor orthostatic vitals. There were no obvious arrhythmias noted. With the possibility based on her EKG to hypertrophic cardiomyopathy although at rest there is no significant murmurs identified. Agree with echocardiogram to evaluate for it hypertrophic cardiomyopathy as well as any possible obstructive physiology. The no obvious arrhythmias noted although in his elderly patient this can not be entirely ruled out. Will continue full disclosure cardiac telemetry for 24 hours. Consider outpatient event monitor at the nursing facility to evaluate for any [place] or tachyarrhythmias. She should have adequate hydration. Adequate treatment of constipation to avoid straining. From cardiac perspective no other recommendations. Will sign of the case. Thank you for allowing me to partake in her care Procedures Date of Service Date of Service: 07/19/25
[2025-07-19] MEDS: calcium polycarbophiL TABLET 1 TAB PO (09:38)
--- NOTE | 2025-07-19 09:48 | PHA.MEDREC ---
Pharmacy Consult ? Medication Reconciliation Pharmacy has completed the medication reconciliation. Utilized list from Facility.
[2025-07-19 15:17] VITALS: BP 132/73; PULSE 62; RESP 17; TEMP 36.8; O2SAT 96
--- NOTE | 2025-07-19 16:28 | MHC.CM.PN ---
PT IS A [facility]TC RESIDENT OF [facility] HCP ON FILE PCP; JESSICA MONZON MESSAGE LEFT FOR [facility]SON/HCP, [facility] [phone] IMM INFORMATION PROVIDED DCP: RETURN TO [facility] VIA BLS
--- NOTE | 2025-07-19 18:00 | HO.PM.IMPN ---
Subjective Subjective Date of Service: 07/19/25 Interval History: Very pleasant female. No new complaints today. Feels well overall Review of Systems Review of Systems: Yes all other systems are reviewed and are negative Physical Exam Exam: Exam: General: A&O x3, oriented to time place person and situation, comfortable, no pain Cardiac: S1, S2 auscultated with no S3/4, no MRG. Well perfused. Respiratory: Normal breath sounds auscultated throughout all lung zones, without wheezing, rales. Normal rate. GI/ : No abdominal pain on palpation, no masses or distentions. MSK: Normal ambulation without pain at bony prominences or musculature Neurological: Normal neurological examination on overview, without obvious CN II-XII abnormalities. Vital Signs: Vital Signs: Last Vital Signs Temp 98.2 F 07/19/25 15:17 Pulse 62 07/19/25 15:17 Resp 17 07/19/25 15:17 BP 132/73 07/19/25 15:17 Pulse Ox 96 07/19/25 15:17 O2 Del Method Room Air 07/19/25 15:17 BMI result Body Mass Index 25.4 Objective Data Active Medications Acetaminophen (Acetaminophen 325 Mg Tablet) 650 mg PO Q6H PRN PRN Reason: Pain, Mild 1-3,fever,headache Albuterol/Ipratropium (Albuterol/Iprat 2.5/0.5mg 3 Ml Ampul.Neb) 3 ml INHALE Q4H PRN PRN Reason: Shortness of Breath/Wheezing Calcium Carbonate (Calcium Carbonate 750 Mg Tab.Chew) 750 mg PO Q4H PRN PRN Reason: Heartburn Calcium Polycarbophil (Calcium Polycarbophil Tablet) 1 tab PO DAILY [facility] Last Admin: 07/19/25 09:38 Dose: 1 tab Documented By: MONAE Enoxaparin Sodium (Enoxaparin Sodium 40 Mg/0.4 Ml Syringe) 40 mg SUBCUT Q24H [facility] Last Admin: 07/19/25 00:04 Dose: Not Given Documented By: VIKTOR Non-Admin Reason: Patient Refused Levothyroxine Sodium (Levothyroxine Sodium 50 Mcg Tablet) 50 mcg PO DAILY@0600 [facility] Last Admin: 07/19/25 06:44 Dose: 50 mcg Documented By: VIKTOR Magnesium Hydroxide (Milk Of Magnesia 30 Ml Oral.Susp) 30 ml PO DAILY PRN PRN Reason: Constipation Melatonin (Melatonin 3 Mg Tablet) 6 mg PO BEDTIME PRN PRN Reason: Insomnia Ondansetron HCl (Ondansetron Hcl 4 Mg/2 Ml Vial) 4 mg IVPUSH Q8H PRN PRN Reason: Nausea and Vomiting Polyethylene Glycol (Polyethylene Glycol 3350 17 Gm Powd.Pack) 17 gm PO DAILY [facility] Last Admin: 07/19/25 09:38 Dose: 17 gm Documented By: MONAE Senna (Sennosides 8.6 Mg Tablet) 17.2 mg PO BEDTIME [facility] Last Admin: 07/19/25 00:02 Dose: Not Given Documented By: VIKTOR Non-Admin Reason: Patient Refused Sodium Chloride (0.9 % Sodium Chloride Flush 3 Ml Syringe) 3 ml IVFLUSH QSHIFT [facility] Last Admin: 07/19/25 07:53 Dose: Not Given Documented By: MONAE Non-Admin Reason: See Note Labs 07/19/25 04:04 07/19/25 04:04 Labs: Laboratory Results - last 24 hr 07/18/25 07/19/25 12:03 04:04 MCV 83.3 MCH 28.3 MCHC 34.0 RDW 13.8 Plt Count 198 MPV 9.8 Immature Gran % (Auto) 0.2 Neut % (Auto) 54.9 Lymph % (Auto) 32.9 [place] % (Auto) 10.0 Eos % (Auto) 1.5 Baso % (Auto) 0.5 Lymph # (Auto) 2.0 [place] # (Auto) 0.6 Eos # (Auto) 0.1 Baso # (Auto) 0.0 Abs Immat Gran (auto) 0.01 Absolute Neuts (auto) 3.3 Absolute Nucleated RBC 0.000 Nucleated RBC % (auto) 0.0 Anion Gap 14 Estim Creat Clear Calc 33.9 Estimated GFR 53 Random Glucose 91 Estimat Average Glucose 120 Hemoglobin A1c % 5.8 Calcium 9.7 Assessment and Plan (1) Orthostatic hypotension: Status: Acute (2) Syncope: Status: Acute Plan 85 yo japanese speaking female with PMH anxiety, chronic intermittent dizziness, colitis, GI bleed, hypothyroidism, , GERD, constipation, breast cancer status post left mastectomy and dementia, osteoarthritis (patient unable to provide medical history, all obtained from medical record) presents to the emergency department today from her [facility] facility status post unwitnessed fall off commode, likely secondary to vasovagal syncope and orthostatic syncope. Syncope/ 2 minute LOC ? Vasovagal as episode occurred with bowel movement on commode, hx of constipation with straining not on bowel regimen in SNF CT head, cervical spine negative Orthostaitcs Q8H X3 Echo ordered (no record of echo in chart) Cardiology consulted Telemetry Constipation with straining /mild stool burden on KUB Pt asymptomatic with no N/V, abd pain on exam Bowel regimen initiated, dulcolax now, polyethylene glycol daily, senna, fiber - should continue with DC plan Monitoring recommended for commode use Subclinical Hyperthyroidism on Levothyroxione Lowered dose to 50 mcgs daily (normally on 75 mcg) FT3 pending GERD continue famotidine Dementia/ risk for fall No issues with agitation or anxiety Fall preventions measures in place 1:1 not indicated on admisson Full assist with IADL's [employer] - VTE: Lovenox - CODE STATUS: Full code - DIET: Regular Total time managing care of this patient today: 35 minutes. Quality Stroke Does the patient have a stroke diagnosis?: No Reason for No Anti-thrombotic by Day Two: N/A - Med Ordered VTE Prior VTE?: No VTE Risk Level:: Medical - moderate - high VTE Device Contraindication: N/A - Device Ordered VTE Drug Contraindication: N/A - Med Ordered
[2025-07-19] MEDS: 0.9 % Sodium Chloride Flush 3 ML SYRINGE IVFLUSH ×2 (18:58→23:29)
[2025-07-19 20:00] VITALS: BP 130/60; PULSE 75; RESP 16; TEMP 36.7; O2SAT 98
[2025-07-19 23:09] VITALS: BMI 25.2
[2025-07-19 23:47] VITALS: BP 137/69; PULSE 64; RESP 16; TEMP 36.3; O2SAT 97
[2025-07-19 23:49] VITALS: BP 130/70; PULSE 93
[2025-07-20 03:05] VITALS: BP 149/78; PULSE 62; RESP 18; TEMP 36.2; O2SAT 96
--- NOTE | 2025-07-20 07:00 | CA_ITS ---
Transthoracic Echocardiogram Patient (Last, First, Middle): Kaley Treviño M Gender: Female Date of : 1940 Age: 85 Procedure Date: 07/20/2025 Procedure Type: Transthoracic Echocardiogram Location: ER Height: 152.4 cm Weight: 58.97 kg BSA: 1.55 m2 Heart Rate: 70 bpm BP: 116 / 56 mmHg Fashion Intern: MCKENZIE Referring MD: Emily Dallas [facility] Allied Health Professional: Glynn Fitch MD Symptoms: syncope Study Quality: Adequate w contrast ECG Rhythm: Sinus Conclusions: - 1. Normal LV ejection fraction of 60 65% with impaired relaxation filling pattern 2. Trivial aortic and mitral regurgitation 3. Normal RV systolic pressure 4. No gross pericardial effusion Findings Procedure Information Contrast agent, definity, is being given per protocol without apparent complications. Left Ventricle Normal left ventricular size, thickness, and systolic function. The visually estimated ejection fraction is between 60-65%. Spectral Doppler is indicative of an impaired relaxation filling pattern. E/E prime ratio is between 8 and 15 consistent with indeterminate filling pressures. Right Ventricle Normal right ventricular cavity size and systolic function. Atria Both atria are normal in size. There is no evidence of interatrial shunt. Aortic Valve There is mild calcification of the aortic valve. There is no aortic valve stenosis. There is trace (trivial) aortic valve regurgitation. Mitral Valve There is mild anterior and posterior mitral leaflet thickening. There is mild mitral annular calcification. There is trace mitral valve regurgitation. There is no mitral valve stenosis. Pulmonic Valve The pulmonic valve is likely normal. There is trace pulmonic valve regurgitation. Tricuspid Valve Normal tricuspid valve structure. There is trace tricuspid valve regurgitation. The right ventricular systolic pressure is normal. The right ventricular systolic pressure is 23 mmHg. Normal right atrial pressure. There is no evidence of pulmonary hypertension. Great Vessels The aorta was not well visualized. The pulmonary artery was not well visualized. There is no dilatation of the ascending aorta measuring 2.80 cm. Venous The inferior vena cava is normal in size and collapses greater than 50% with inspiration. Pericardium/Pleural There is no evidence of pericardial effusion. Prior Study Comparison Changes noted compared to prior study dated: 10/01/2017. LV ejection fraction seems to have improved Measurements 2D Linear Measurements IVSd: 0.84 0.6-0.9/0.6-1.0 cm LVIDd: 2.77 3.9-5.3/4.2-5.9 cm LVIDd Index: 1.79 2.4-3.2/2.2-3.1 cm/m2 LVIDs: 1.66 2.0-3.6 cm LVPWd: 0.80 0.7-1.1 cm LA Diam: 2.70 2.7-3.8/3.0-4.0 cm LAIDs Index: 1.74 1.5-2.3 cm/m2 LV Mass: 125.82 67-162/88-224 g LV Mass Index: 81.18 43-95/49-115 g/m2 LVOT Diam: 2.00 3.0+(-)1.3 cm 2D Systolic Function EF 4C: 72.90 >55% EF 2C: 56.70 >55% EF BiP: 64.70 >55% Mitral Valve MV Pk E: 0.47 MV PK A: 0.82 MV Decel Time: 171.00 E/A: 0.60 E'Lateral: 5.00 E'Medial: 3.37 E/E' Med: 14.00 E/E' Lat: 9.40 PHT: 50.00 MVA PHT: 4.40 Decel [place]: 2.76 Aortic Valve AoV Pk Julio: 0.89 AoV Mn Julio: 0.56 AoV VTI: 0.17 AoV Pk Grad: 3.00 Aov Mn Grad: 2.00 GLORIA Cont.VTI: 2.72 LVOT LVOT Pk Julio: 0.73 LVOT Mn Julio: 0.48 LVOT VTI: 0.15 LVOT Pk Grad: 2.00 LVOT Mn Grad: 2.00 LVOT Diam: 2.00 LVOT Area: 3.14 Diastolic Function MV Pk E: 0.47 MV Pk A: 0.82 E/A: 0.60 E'Medial: 3.37 E/E' Med: 14.00 E' Laterial: 5.00 E/E' Lat: 9.40 Right Ventricle TAPSE (mm): 21.90 TVS' Julio: 15.40 Tricuspid Valve TR Pk Julio: 2.23 TR Pk Grad: 20.00 RA Press: 3.00 RVSP: 23.00 Great Vessels Aorta Sinus of Valsalva: 2.70 2.0-3.5 cm Ao Asc: 2.80 2.1-3.4 cm Pulmonary Valve PV Pk Julio: 1.14 Peak PV Grad: 5.00 Updated in Other Vendor System with Status of Final Glynn Fitch MD electronically signed on 07/20/2025 11:20:45 AM with status of Final
[2025-07-20 07:47] VITALS: BP 156/78; PULSE 65; RESP 20; TEMP 35.8; O2SAT 97
[2025-07-20 07:50] VITALS: BP 156/78; PULSE 71
[2025-07-20 07:52] VITALS: BP 144/82; PULSE 80
[2025-07-20 07:53] VITALS: BP 130/77; PULSE 89
[2025-07-20] MEDS: 0.9 % Sodium Chloride Flush 3 ML SYRINGE IVFLUSH (08:11)
[2025-07-20] MEDS: calcium polycarbophiL TABLET 1 TAB PO (08:11)
[2025-07-20 11:06] VITALS: BP 131/65; PULSE 81; RESP 18; TEMP 36.2; O2SAT 97
--- NOTE | 2025-07-20 12:28 | PM.DS ---
DS: Providers Provider Date of Service: 07/18/25 Date of admission: 07/18/25 17:30 Date of discharge: 07/20/25 Primary care physician: Sara Keen MD Consults: 07/18/25 18:03 Consult to Cardiology Routine Consulting Provider: [facility] Reason for consultation: syncope LOC 2 minutes Has provider been notified: No Attending physician on discharge: Malia Sellers DS: Diagnosis Discharge Diagnosis (1) Orthostatic hypotension: Status: Acute (2) Syncope: Status: Acute DS: Summary Hospital Course Hospital Course: 85 yo azerbaijani speaking female with PMH anxiety, chronic intermittent dizziness, colitis, GI bleed, hypothyroidism, , GERD, constipation, breast cancer status post left mastectomy and dementia, osteoarthritis (patient unable to provide medical history, all obtained from medical record) [facility] the emergency department [facility] status post unwitnessed fall off commode, likely secondary to vasovagal syncope and orthostatic syncope. Echocardiography was performed revealing LVEF 60%, without significant diastolic dysfunction or valvulopathy. No evidence of hypertrophic cardiomyopathy. No arrhythmias observed on ECG or on monitor No significant fluctuation in blood pressure or heart rate. Likely etiology secondary to straining, and subsequent vasovagal syncope/orthostatic syncope. Status at Discharge Overall status at discharge: patient is back to baseline Time Attestation Total time managing care of this patient today: 35 mintues. Discharge Coordination Time (in mins): 30 Quality: Safe Use of Opioids Does Pt have an Active Cancer Diagnosis on the Problem List?: No Quality: Stroke Does the patient have a stroke diagnosis?: No Physical Exam Exam: Exam: General: A&O x3, oriented to time place person and situation, comfortable, no pain Cardiac: S1, S2 auscultated with no S3/4, no MRG. Well perfused. Respiratory: Normal breath sounds auscultated throughout all lung zones, without wheezing, rales. Normal rate. GI/ : No abdominal pain on palpation, no masses or distentions. MSK: Normal ambulation without pain at bony prominences or musculature Neurological: Normal neurological examination on overview, without obvious CN II-XII abnormalities. Vital Signs: Vital Signs: Last Vital Signs Temp 97.2 F 07/20/25 11:06 Pulse 81 07/20/25 11:06 Resp 18 07/20/25 11:06 BP 131/65 08/19/25 11:06 Pulse Ox 97 07/20/25 11:06 O2 Del Method Room Air 07/20/25 11:06 BMI result Body Mass Index 25.2 DS: Data Data Completed and Pending Completed studies during hospitalization [Text1]: Procedures Excision of Rectum, Via Natural or Artificial Opening Endoscopic, Diagnostic (11/05/20) Labs on day of discharge: Laboratory Results - last 24 hr 07/19/25 04:04 Free T3 2.8 Discharge Plan Discharge Anticipated Discharge Date/Time: 07/20/25 12:32 Patient Disposition: [facility] Referrals: [facility] [Outside] - 1 Week Sara Keen MD [Primary Care Provider, Medical] - 1 Week Discharge Medications: New sennosides 8.6 mg Tablet 17.2 mg PO BEDTIME 30 Days Qty: 60 0RF Continued sennosides [senna] 8.6 mg Tablet 8.6 mg PO BID acetaminophen 325 mg Tablet 650 mg PO Q6H PRN (Reason: Fever Or Pain) ondansetron HCl 4 mg Tablet 4 mg PO Q8H PRN (Reason: Nausea And Vomiting) melatonin 3 mg Tablet 3 mg PO BEDTIME PRN (Reason: Insomnia) magnesium hydroxide [Milk of Magnesia] 400 mg/5 mL Suspension 30 ml PO DAILY PRN (Reason: constipation (step 1) if bm in 3 days) bisacodyl 10 mg Suppository 10 mg UT DAILY PRN (Reason: constipation, if no bm in 8 hours) pantoprazole 40 mg tablet,delayed release (DR/EC) 40 mg PO DAILY@0630 Fleet Enema 19-7 gram/118 mL Enema 118 ml UT BEDTIME PRN (Reason: constipation (step 3) if no bm for 8 hr after supp) levothyroxine 75 mcg tablet 75 mcg PO DAILY@0600 Discharge Orders: Discharge Order (Routine); Ordered 07/20/25 Ordered By: Malia Sellers Activity on Discharge: As tolerated Stand Alone Forms: Patient Portal Discharge page Print Language: Citizen Of [place] Care Plan Goals: Follow-up PCP within 7 days of discharge Ensure adequate hydration Avoid superior constipation Health Concerns: As above Plan of Treatment: As above Assessment: Back to clinical baseline. No indication for continued admission
[2025-07-20 12:42] LABS: B Type Natriuretic Peptide 83 pg/mL (<100)
--- NOTE | 2025-07-20 12:48 | MHC.CM.PN ---
Pt is medically cleared for discharge back to LTC at [facility] today, she will return via [facility] transport auth obtain, booking ID# [id number]. Pts HCP/Grandcaty Jung was contacted by this CM and updated on the pts discharge plan.
--- NOTE | 2025-07-26 12:26 | PC.NURSE ---
LR infusion continued upon departure of ED
== END 2025-07-20 14:57 ==
LOC: HO.ED 17:38 → HO.EDOVER 17:42 → HO.IMC 07-19 19:18
PROVIDERS: Nurse Practitioner Family; Admitting Provider Internal Medicine; Emergency Provider Emergency Medicine; PCP Internal Medicine; Visit Provider Hospitalist
DX: I95.1 Orthostatic hypotension (principal); K59.00 Constipation, unspecified; F03.90 Unspecified dementia, unspecified severity, without behavioral disturbance, psychotic disturbance, mood disturbance, and anxiety; E03.9 Hypothyroidism, unspecified; K21.9 Gastro-esophageal reflux disease without esophagitis; Z85.3 Personal history of malignant neoplasm of breast; Z90.12 Acquired absence of left breast and nipple
CPT/HCPCS: 36415; 70450; 72125; 73030; 74018; 80048; 80053; 81003; 82550; 83036; 83735; 83880; 84439; 84443; 84481; 84484; 85025; 93005; 93306; 96365; 96372; 99222; 99285; J0131; J1650; J7120; Q9957

== ENCOUNTER → 2025-07-18 11:25 | Outpatient (BNV) | payer OTHER, SELFPAY | PROVIDERS: Emergency Provider Emergency Medicine; PCP Internal Medicine; Visit Provider Radiology Diagnostic Radiology | DX: M47.812 Spondylosis without myelopathy or radiculopathy, cervical region (principal); S09.90XA Unspecified injury of head, initial encounter; M89.311 Hypertrophy of bone, right shoulder; R10.84 Generalized abdominal pain | CPT/HCPCS: 70450; 72125; 73030; 74018 ==

== ENCOUNTER 2025-07-18 17:30 | Outpatient (BNV) | payer OTHER, SELFPAY | END 2025-07-20 07:00 | PROVIDERS: Admitting Provider Internal Medicine; Emergency Provider Emergency Medicine; PCP Internal Medicine; Visit Provider Internal Medicine Cardiovascular Disease | DX: I34.81 Nonrheumatic mitral (valve) annulus calcification (principal); I34.0 Nonrheumatic mitral (valve) insufficiency; I35.1 Nonrheumatic aortic (valve) insufficiency | CPT/HCPCS: 93306 ==

== ENCOUNTER → 2025-07-18 17:30 | Outpatient (BNV) | payer OTHER, SELFPAY | PROVIDERS: Admitting Provider Internal Medicine; Emergency Provider Emergency Medicine; PCP Internal Medicine; Visit Provider Internal Medicine Cardiovascular Disease | DX: R55 Syncope and collapse (principal) | CPT/HCPCS: 93010; 99222 ==

== ENCOUNTER → 2025-07-18 17:30 | Outpatient (BNV) | payer OTHER, SELFPAY | PROVIDERS: Admitting Provider Internal Medicine; Emergency Provider Emergency Medicine; PCP Internal Medicine; Visit Provider Nurse Practitioner Family | DX: I95.1 Orthostatic hypotension (principal); R55 Syncope and collapse | CPT/HCPCS: 99223; 99232; 99239 ==

== ENCOUNTER 2025-11-22 13:48 | Emergency (ER) | payer OTHER, SELFPAY ==
--- NOTE | ~2025-11-22 | XR_ITS ---
EXAMINATION: XR CHEST 1 VIEW HISTORY: weakness COMPARISON: Comparison is made with the prior examination dated 02/02/2025. FINDINGS: A single AP portable view of the chest performed at 2:51 PM is submitted. There are increased interstitial markings bilaterally. There is biapical pleural and parenchymal scarring. No new focal airspace opacity is identified. There is no pleural effusion, pneumothorax, or pulmonary vascular congestion. The heart is normal in size. There is degenerative disc disease of the spine. XR/XR chest 1V IMPRESSION: No acute cardiopulmonary abnormality. Electronically signed by: Harinder Peralta MD 11/22/2025 02:59 PM [facility]
--- NOTE | ~2025-11-22 | CT_ITS ---
EXAMINATION: CT HEAD WITHOUT CONTRAST CLINICAL INFORMATION: Status changes COMPARISON: July 18, 2025 TECHNIQUE: Contiguous axial imaging was performed from the skull base to vertex without intravenous administration of contrast. This CT examination was performed using dose optimization techniques as appropriate, variously including the following: *Automated exposure control *Adjustment of mA and/or kV according to patient size (this includes techniques or standardized protocols for targeted exams where dose is matched to indication/reason for exam; i.e. extremities or head) *Use of iterative reconstruction technique FINDINGS: There is no acute ischemic change. Chronic white matter low attenuation is again noted. There is no intracranial hemorrhage. There is no mass-effect or midline shift. There is moderate global atrophy. Basal cisterns and ventricles are within normal limits for age/cerebral volume. Orbits are symmetrical and unremarkable. Paranasal sinuses and mastoid air cells are pneumatized. There are no bony abnormalities. CT/CT head/brain wo IV con IMPRESSION: No acute intracranial abnormality. Electronically signed by: Luis Dexter MD 11/22/2025 04:29 PM [facility]
[2025-11-22 13:53] VITALS: BP 130/80; BP 166/74; PULSE 79; PULSE 85; RESP 18; TEMP 37.3; O2SAT 95; O2SAT 98; BMI 27.5
--- NOTE | 2025-11-22 14:00 | ECG_ITS ---
Test Reason : Low grade temp/ feeling unwell Blood Pressure : */* mmHG Vent. Rate : 80 BPM Atrial Rate : * BPM P-R Int : * ms QRS Dur : 78 ms QT Int : 384 ms P-R-T Axes : * 0 64 degrees QTcB Int : 442 ms Poor data quality Possible Normal sinus rhythm Minimal voltage criteria for LVH, may be normal variant ( R in aVL ) Abnormal ECG When compared with ECG of 18-Jul-2025 11:45, Poor data quality in current ECG precludes serial comparison Referred By: Arely Love Electronically Signed By: SHAHRZAD RPOCTOR MD
--- NOTE | 2025-11-22 14:01 | ED_ITS ---
HPI - Weakness General Chief complaint: General Medical Stated complaint: low grade temp/feeling unwell Time Seen by Provider: 11/22/25 13:54 Source: patient, EMS, old records reviewed and plate cleaner Mode of arrival: EMS Limitations: altered mental status (dementia) History of Present Illness ED Provider: KIMBERLY HPI Narrative: 85 yo female confused hx of dementia, colitis, constipation, FTT, anemia here with c/o shaking and tremors with temps around 99 per [facility]. Patient states she has no pain. No n/v/d. No trauma reported. RN told ED credit charge authorizer that the tremors are new. The patient cannot provide any history. MD Complaint: generalized weakness Onset (ago): day(s) (1) Duration: constant Location: generalized Migration: none Severity: mild Relieving factors: none Exacerbating factors: none Context: recent illness Associated symptoms: denies other symptoms Related Data Home Medications ?Medication ?Instructions ?Recorded ?Confirmed levothyroxine 75 mcg tablet 75 mcg PO DAILY@0600 06/2107/19/25 acetaminophen 325 mg tablet 650 mg PO Q6H PRN Fever Or Pain 07/19/25 07/19/25 bisacodyl 10 mg rectal suppository 10 mg NH DAILY PRN constipation, 07/19/25 07/19/25 if no bm in 8 hours magnesium hydroxide 400 mg/5 mL 30 ml PO DAILY PRN con stipation 07/19/25 07/19/25 oral suspension (Milk of Magnesia) (step 1) if bm in 3 days melatonin 3 mg tablet 3 mg PO BEDTIME PRN Insomnia 07/19/25 07/19/25 ondansetron HCl 4 mg tablet 4 mg PO Q8H PRN Nausea And Vomiting 07/19/25 07/19/25 pantoprazole 40 mg tablet,delayed 40 mg PO DAILY@0630 07/19/25 07/19/25 release sennosides 8.6 mg tablet (senna) 8.6 mg PO BID 5 07/19/25 sodium phosphates 19 gram-7 118 ml NH BEDTIME PRN cons tipation 07/19/25 07/19/25 gram/118 mL enema (Fleet Enema) (step 3) if no bm for 8 hr after supp Previous Rx's ?Medication ?Instructions ?Recorded sennosides 8.6 mg tablet 17.2 mg (2 x 8.6 mg) PO BEDT MARIA ISABEL 30 07/20/25 days #60 tabs Allergies Allergy/AdvReac Type Severity Reaction Status Date / Time azithromycin (From ZITHROMAX) Allergy Severe GENERIC Verified 11/22/25 14:00 ONLY-SEVERE ABD PAIN, abdominal pain codeine (CODEINE) Allergy Intermediate NAUSEA & Verified 11/22/25 14:00 VOMITING,FAINTED, nausea, vomiting, syncope erythromycin base Allergy Intermediate HIVES, ABD Verified 11/22/25 14:00 (ERYTHROMYCIN BASE) PAIN promethazine (From PHENERGAN) Allergy Intermediate DIZZY / Verified 11/22/25 14:00 NAUSEATED amoxicillin (Prevpac) Allergy Unknown Unknown Verified 11/22/25 14:00 clarithromycin (Prevpac) Allergy Unknown Unknown Verified 11/22/25 14:00 Review of Systems 2 Review of Systems: Yes all other systems are reviewed and are negative PMFSH Past Medical History Attestation statement: The following information was validated with the patient. Source: old records reviewed Medical History Failure to thrive in adult Hematuria of unknown cause Hx of breast cancer Hypothyroid Arthritis History of anemia History of colitis Dysphagia Weight loss, unintentional GI bleed Hx of syncope Bright red blood per rectum Constipation GERD (gastroesophageal reflux disease) Anxiety Surgical History History of esophagogastroduodenoscopy (EGD) Hx of colonoscopy H/O left mastectomy History of ankle surgery Family History Family History Father No problems noted. Mother Hx of colon cancer, stage IV Social History Social History Household Members: None Housing: Assisted Living Facility Do you presently have visiting nurse or other home services: No Alcohol intake: never Patient Tobacco Use Status: Never used Tobacco Advance Directives: Yes Advance Directives on File: Yes Advance Directives Date on File: 10/20/20 service: No Current occupational status: retired Physical Exam 2 Vital Signs: Vital Signs: Last Vital Signs Temp 99.2 F 11/22/25 13:53 Pulse 79 11/22/25 13:53 Resp 18 11/22/25 13:53 BP 166/74 H 11/22/25 13:53 Pulse Ox 98 11/22/25 13:53 O2 Del Method Room Air 11/22/25 13:53 BMI result Body Mass Index 27.5 Appearance: Alert. Oriented X2 Mild acute distress. Frail appearing Eyes: Pupils equal, round and reactive to light. ENT: Pharynx dry MMM Neck: Normal inspection. Neck supple. CVS: Normal heart rate and rhythm. Pulses normal. Respiratory: No respiratory distress. Breath sounds normal. Abdomen: Soft and nontender. Skin: Skin warm and dry. Normal skin color. Normal skin turgor. Extremities: No lower extremity edema. No calf ttp Neuro: Oriented X 2 No motor deficit. No sensory deficit. She has intermittent rhythmic myoclonic jerking of both upper extremity and lower extremity Course Course Course Narrative: 3:55 PM 11/22/2025 (KIMBERLY MATHEWS): At this time signed out to Dr. Hernandez pending urine Reevaluation(s) Reevaluation #1: 5:33 PM 11/22/2025 (Hilaria Hernandez MD): The patient was signed out to me at change of shift pending the results of a head CT. The patient is an 85-year-old woman who was currently at the [facility]. Today she was found to have a low-grade fever associated with what seemed to be a new whole-body tremor. She was sent to the emergency room for evaluatio of this new tremor. The patient is evaluation in the emergency room today is quite reassuring. Her rectal temperature was 99.3 degrees. Her vital signs are otherwise unremarkable. Clinically she is awake and alert with a very pleasant demeanor and seems quite cheerful. She does not seem toxic in any way. No respiratory symptoms or difficulty. No apparent pain or discomfort. She has a an unremarkable CBC. Procalcitonin is normal. CRP is nearly normal. Chest x-ray is unremarkable. Urinalysis is normal. I do not think she has an acute infectious process with the exception of a possible mild viral illness. She had an initial EKG that was poor quality. A repeat EKG after she received IV fluids and some IV Tylenol was entirely normal with a normal sinus rhythm. Her renal function was slightly worse than usual and she was given IV fluids. I do not think she is sufficiently impaired that she requires hospitalization or additional care. The only other interesting finding on her workup was a TSH level of 0.09. The patient is on levothyroxine. Perhaps her dose should be reduced. Otherwise the patient seems well enough to returned to her nursing facility. Time: 17:48 Medications Administered Discontinued Medications Generic Name Dose Route Start Last Admin Trade Name Adrianna PRN Reason Stop Dose Admin Lactated Ringer's 1,000 mls @ 999 mls/hr 11/22/25 14:00 11/22/25 17:19 Lr IV 11/22/25 15:00 Infused .Q1H1M ONE Infusion Ceftriaxone Sodium 1 gm/ 50 mls @ 100 mls/hr 11/22/25 14:24 11/22/25 15:17 Sodium Chloride IV 11/22/25 14:53 Infused ONCE ONE Infusion Acetaminophen 1,000 mg in 100 mls @ 400 mls/hr 11/22/25 16:20 11/22/25 17:19 Ofirmev IV 11/22/25 16:34 Infused ONCE ONE Infusion Medical Decision Making Medical Decision Making [facility] Narrative: 85 yo female confused hx of dementia, colitis, constipation, FTT, anemia here with c/o chills, tremors and low grade temps of 99. At this time will need basic labs, UA, CXR, viral panel. I have started IVF fluids. I am unclear if she has a source or if this viral. I am going to start her on IVF and empiric ceftriaxone Differential Diagnosis Differential Diagnoses: The differential diagnosis associated with the presentation includes viral syndrome, madina, tremors, mass, flu, UTI/pneumonia Admission/Observation Consideration of admission/observation: Escalation of care including admission/observation considered Lab Data [facility] Lab Attestation statement: I reviewed the patient's lab results. 11/22/25 14:20 11/22/25 14:20 Labs: Lab Results 11/22/25 11/22/25 Range/Units 14:20 15:53 WBC 6.8 (4.8-10.8) X10*3/uL RBC 4.30 (4.20-5.50) X10*6/uL Hgb 12.0 (12.0-16.0) g/dl Hct 36.2 L (37.0-47.0) % MCV 84.2 (80.0-98.0) fL MCH 27.9 (27.0-33.0) pg MCHC 33.1 (31.0-35.0) g/dl RDW 14.2 (11.0-16.0) % Plt Count 173 (160-400) X10*3/uL MPV 10.3 (9.4-12.3) fL Immature Gran % (Auto) 0.4 (0.0-0.4) % Neut % (Auto) 58.5 (45-73) % Lymph % (Auto) 27.4 (20-40) % Perry % (Auto) 11.8 H (2-11) % Eos % (Auto) 1.5 (0-4) % Baso % (Auto) 0.4 (0-2) % Lymph # (Auto) 1.9 (1.2-4.9) X10*3/uL Perry # (Auto) 0.8 (0.1-1.2) X10*3/uL Eos # (Auto) 0.1 (0.0-0.4) X10*3/uL Baso # (Auto) 0.0 (0.0-0.2) X10*3/uL Abs Immat Gran (auto) 0.03 (0.00-0.03) X10*3/uL Absolute Neuts (auto) 4.0 (2.0-8.3) x10*3/uL Absolute Nucleated RBC 0.000 (0.0-0.012) X10*3/uL Nucleated RBC % (auto) 0.0 (0.0-0.2) /100WBC Sodium 144 (135-145) mmol/L Potassium 4.6 (3.3-5.1) mmol/L Chloride 115 H (96-108) mmol/L Carbon Dioxide 24 (22-29) mmol/L Anion Gap 10 L (12-20) BUN 30 H (9-16) mg/dL Creatinine 1.06 (0.5-1.4) mg/dL Estim Creat Clear Calc 32.9 Estimated GFR 49 Random Glucose 88 (60-115) mg/dL Lactic Acid 1.0 (0.5-2.0) mmol/L Calcium 9.6 (8.4-10.2) mg/dL Magnesium 2.1 (1.6-2.6) mg/dL Total Bilirubin 0.3 (0.0-1.0) mg/dL Direct Bilirubin 0.1 (0.0-0.5) mg/dL AST 20 (5-31) U/L ALT 17 (0-31) U/L Alkaline Phosphatase 87 (39-117) U/L Total Creatine Kinase 53 (26-140) U/L C-Reactive Protein 0.68 H (< or = 0.50) mg/dL Total Protein 6.8 (6.5-8.0) g/dL Albumin 3.9 (3.5-5.0) g/dL Lipase 26 (8-78) U/L Procalcitonin 0.02 ng/mL TSH 0.09 L (0.32-4.0) uIU/mL Free T4 1.22 (0.71-1.85) ng/dL Urine Color Yellow Urine Appearance Clear Urine pH 5.0 (5.0-9.0) Ur Specific [place] 1.020 (1.005-1.025) Urine Protein Negative (Neg-Trace) mg/dL Urine Glucose (UA) Negative (Negative) mg/dL Urine Ketones Negative (Negative) mg/dL Urine Blood Negative (Negative) Urine Nitrite Negative (Negative) Ur Leukocyte Esterase Negative (Negative) Influenza Type A (PCR) NEGATIVE (Negative) Influenza Type B (PCR) NEGATIVE (Negative) RSV RNA Qual (PCR) NEGATIVE (Negative) SARS-CoV-2 RNA (RT-PCR) NEGATIVE (Negative) Independent Interpretation I performed an independent interpretation of an: EKG and Plain X-Ray Interpretation: Rate: Rhythm: [place]: Normal P waves. Normal KYLER. Normal QRS complex. ST T wave : qTC: prior studies: The study has been interpreted contemporaneously by me. . Radiology Impression Discussion of test interpretation with radiology: I have reviewed the radiologist's reading. Independent Historian Clinical information obtained from an independent historian. History obtained from or confirmed by: EMS External Record Review External record reviewed: Inpatient record, Outpatient record, Prior outpatient labs and Prior outpatient radiology Discharge Plan Discharge Clinical Impression: Tremor, Low TSH level Patient Disposition: Home, Self-Care Instructions: Tremors (ED) Additional Instructions: Her evaluation in the emergency room today is very reassuring. Her vital signs are unremarkable. A head CT is negative. EKGs unremarkable. CBC shows a normal white count, hemoglobin, and differential. Renal function was slightly worse today, she was given 1 liter of IV fluids. CRP and procalcitonin are unremarkable. Urinalysis is normal. General demeanor is very nontoxic. Her TSH is 0.09. Free T4 was normal at 1.22. Perhaps her thyroid replacement hormone should be reduced but no other explanation for her new tremors is apparent. She seems otherwise very well and any additional workup I think can be done as an outpatient. Return to the emergency room if worse. Prescriptions: No Action sennosides [senna] 8.6 mg Tablet 8.6 mg PO BID acetaminophen 325 mg Tablet 650 mg PO Q6H PRN (Reason: Fever Or Pain) ondansetron HCl 4 mg Tablet 4 mg PO Q8H PRN (Reason: Nausea And Vomiting) melatonin 3 mg Tablet 3 mg PO BEDTIME PRN (Reason: Insomnia) magnesium hydroxide [Milk of Magnesia] 400 mg/5 mL Suspension 30 ml PO DAILY PRN (Reason: constipation (step 1) if bm in 3 days) bisacodyl 10 mg Suppository 10 mg NH DAILY PRN (Reason: constipation, if no bm in 8 hours) pantoprazole 40 mg tablet,delayed release (DR/EC) 40 mg PO DAILY@0630 Fleet Enema 19-7 gram/118 mL Enema 118 ml NH BEDTIME PRN (Reason: constipation (step 3) if no bm for 8 hr after supp) sennosides 8.6 mg Tablet 17.2 mg PO BEDTIME 30 Days Qty: 60 0RF levothyroxine 75 mcg tablet 75 mcg PO DAILY@0600 Referrals: [facility] [Outside] Tabatha Keen MD [Primary Care Provider, Physical Medicine and Rehab] Print Language: Mexican
[2025-11-22] MEDS: Lactated Ringers 1,000 ML 999 ML IV (14:27)
[2025-11-22 14:30] LABS: MANUAL DIFF FLAG NO
[2025-11-22 14:42] LABS: Hematocrit 36.2 % (37.0-47.0); Hemoglobin 12.0 g/dl (12.0-16.0); Imm Gran Abs Auto 0.03 X10*3/uL (0.00-0.03); Imm Gran Pct Auto 0.4 % (0.0-0.4); Lymphocytes Absolute Auto 1.9 X10*3/uL (1.2-4.9); Mean Corpuscular HGB Conc 33.1 g/dl (31.0-35.0); Mean Corpuscular Hemoglobin 27.9 pg (27.0-33.0); Mean Corpuscular Volume 84.2 fL (80.0-98.0); NRBC Abs Auto 0.000 X10*3/uL (0.0-0.012); NRBC Pct Auto 0.0 /100WBC (0.0-0.2); Platelet Count 173 X10*3/uL (160-400); Red Blood Count 4.30 X10*6/uL (4.20-5.50); White Blood Count 6.8 X10*3/uL (4.8-10.8)
[2025-11-22 14:55] LABS: Alanine Aminotransferase 17 U/L (0-31); Albumin Level 3.9 g/dL (3.5-5.0); Alkaline Phosphatase 87 U/L (39-117); Anion Gap 10 (12-20); Aspartate Amino Transferase 20 U/L (5-31); Blood Urea Nitrogen 30 mg/dL (9-16); Calcium 9.6 mg/dL (8.4-10.2); Carbon Dioxide 24 mmol/L (22-29); Chloride 115 mmol/L (96-108); Creatinine Clr Calc Pharmacy 32.9; Estimated Glomerular Filt Rate 49; Lipase 26 U/L (8-78); Magnesium 2.1 mg/dL (1.6-2.6); Potassium 4.6 mmol/L (3.3-5.1); Sodium 144 mmol/L (135-145); Total Protein 6.8 g/dL (6.5-8.0)
[2025-11-22 15:06] LABS: Resp Syncy Virus RNA Qual PCR NEGATIVE (Negative); SARS COV2 PCR INHOUSE NEGATIVE (Negative)
[2025-11-22 15:13] LABS: Procalcitonin 0.02 ng/mL
[2025-11-22 16:06] LABS: Appearance Urine Clear; Glucose Urine UA Negative (Negative); PH 5.0 (5.0-9.0); Specific Gravity - Urine 1.020 (1.005-1.025)
[2025-11-22 16:27] LABS: Free T4 (Free Thyroxine) 1.22 ng/dL (0.71-1.85)
--- NOTE | 2025-11-22 16:36 | ECG_ITS ---
Test Reason : weakness Blood Pressure : */* mmHG Vent. Rate : 68 BPM Atrial Rate : 68 BPM P-R Int : 192 ms QRS Dur : 84 ms QT Int : 410 ms P-R-T Axes : 75 -10 40 degrees QTcB Int : 435 ms Normal sinus rhythm Moderate voltage criteria for LVH, may be normal variant ( R in aVL , Encinal product ) Borderline ECG When compared with ECG of 22-Nov-2025 14:11, No significant changes seen Referred By: Portillo Hernandez Electronically Signed By: SHAHRZAD PROCTOR MD
--- OUTSIDE RECORDS SUMMARY | 2025-11-22 18:14 | XMS_ITS | Encounter Summary ---
Author Organization [facility] Address [address] [facility] [address] [place] [address] Care Team Providers Care Game Programmer Name Role Phone Dee Dee Rueda MD Primary Care Provide r Reason for Visit * Reason Comments Med Change Request Encounter Details Date Type Department Care Team ([facility] st Contact Info) Description 11/20/2023 Refill [facility] [address] [place], [place] [phone] Dee Dee Rueda MD [address] [place], [place] [phone] Allergic reaction, initial encounter Social History Tobacco [...] documented as of this encounter Care Teams Game Programmer Relationship Specialty Start Date End Date Dee Dee Rueda MD [address] [place] [id number] PCP - General Family Medicine 09/07/22 documented as of this encounter
--- OUTSIDE RECORDS SUMMARY | 2025-11-22 18:14 | XMS_ITS | Encounter Summary ---
Author Organization [facility] Address [address] [facility] [address] [place] [address] Care Team Providers Care Boiler Tester Name Role Phone Dee Dee Rueda MD Primary Care Provide r Reason for Visit * Reason Comments Med Refill Encounter Details Date Type Department Care Team ([facility] st Contact Info) Description 07/06/2024 Refill [facility] [address] [place], [place] [phone] Dee Dee Rueda MD [address] [place], [place] [phone] Moderate dementia with other behavioral disturbance, unspecified [...] other behavioral disturbance, unspecified dementia type (CMS/HCC) (HCC) documented in this encounter Additional Health Concerns Assessment Noted Time PHQ-9 Depression Total Score: 0 05/05/20 24 2:30 PM EDT documented as of this encounter Care Teams Boiler Tester Relationship Specialty Start Date End Date Dee Dee Rueda MD [address] [place] [id number] PCP - General Family Medicine 09/07/22 documented as of this encounter
--- OUTSIDE RECORDS SUMMARY | 2025-11-22 18:14 | XMS_ITS | Encounter Summary ---
Author Organization [facility] Address [address] [place] [address] Care Team Providers Care Technical Writer And Editor Name Role Phone Tabatha Keen MD Primary Care Provider + Encounter Details Date Type Department Care Team (Late st Contact Info) Description 05/24/2025 Lab Requisition [facility] - Main Lab [address] [place] [address] Tabatha Keen MD [address] [facility] [address] [place] [address] Unspecified abdominal pain Social History Tobacco Use Types Packs/Day Years [...] Procedure Name Priority Date/Time Associated Diagnosis Comments COMPLETE BLOOD COUNT Routine 05/24/2025 8:44 AM EDT Unspecified abdominal pain BASIC METABOLIC PANEL Routine 05/24/2025 8:44 AM EDT Unspecified abdominal pain documented in this encounter Results * (ABNORMAL) Basic metabolic panel (05/24/2025 8:44 AM EDT) Sodium 142 133 - 145 mmol/L LAB CHEMISTRY METHOD 05/24/2025 3:46 PM EDT [facility] Potassium 3.7 3.5 - 5.5 mmol/L LAB CHEMISTRY METHOD 05/24/2025 3:46 PM EDT [facility] Comment:Hemolysis present Chloride 109 96 - 110 mmol/L LAB CHEMISTRY METHOD 05/24/2025 3:46 PM [facility] CO2 26 21 - 32 mmol/L LAB CHEMISTRY METHOD 05/24/2025 3:46 PM [facility] Anion Gap 7 3 - 11 LAB CHEMISTRY METHOD 05/24/2025 3:46 PM [facility] Glucose 100 70 - 100 mg/dL LAB CHEMISTRY METHOD 05/24/2025 3:46 PM [facility] BUN 16 5 - 25 mg/dL LAB CHEMISTRY METHOD 05/24/2025 3:46 PM [facility] Creatinine 0.97 0.50 - 1.10 mg/dL LAB CHEMISTRY METHOD 05/24/2025 3:46 PM [facility] eGFR 58(L) >=60 mL/min/1. 73m2 LAB CHEMISTRY METHOD 05/24/2025 3:46 PM [facility] Comment:Calculation based on the Chronic Kidney Disease Epidemiology Collaboration (CKD-EPI) equation refit without adjustment for race. BUN/Creatinine Ratio 16.5 LAB CHEMISTRY METHOD 05/24/2025 3:46 PM [facility] Calcium 9.6 8.5 - 10.5 mg/dL LAB CHEMISTRY METHOD 05/24/2025 3:46 PM [facility] Blood Venous blood specimen / Unknown Venipuncture / Unknown 05/24/2025 8:44 AM EDT 05/24/2025 10:11 AM EDT us Tabatha Keen MD LAB BLOOD ORDERABLES Fin al Result [facility] [address] [place] [address], * (ABNORMAL) Complete blood count (05/24/2025 8:44 AM EDT) WBC 5.3 4.8 - 10.8 K/mcL LAB HEMETOLOGY METHOD 05/24/2025 12:09 PM [facility] RBC 5.10(H) 3.80 - 4.80 M/mcL LAB HEMETOLOGY METHOD 05/24/2025 12:09 PM [facility] Hemoglobin 14.2 11.5 - 16.0 g/dL LAB HEMETOLOGY METHOD 05/24/2025 12:09 PM [facility] Hematocrit 44.2 35.0 - 47.0 % LAB HEMETOLOGY METHOD 05/24/2025 12:09 PM [facility] MCV 87.2 79.0 - 98.0 FL LAB HEMETOLOGY METHOD 05/24/2025 12:09 PM [facility] MCH 28.0 27.0 - 32.0 pcg LAB HEMETOLOGY METHOD 05/24/2025 12:09 PM [facility] MCHC 32.1 32.0 - 37.0 g/dL LAB HEMETOLOGY METHOD 05/24/2025 12:09 PM [facility] RDW 14.1 11.0 - 15.0 % LAB HEMETOLOGY METHOD 05/24/2025 12:09 PM [facility] Platelets 227 130 - 400 K/mcL LAB HEMETOLOGY METHOD 05/24/2025 12:09 PM [facility] MPV 10.5 7.0 - 11.0 FL LAB HEMETOLOGY METHOD 05/24/2025 12:09 PM [facility] NRBC 0.0 <1.0 % LAB HEMETOLOGY METHOD 05/24/2025 12:09 PM [facility] NRBC Absolute 0.00 <0.10 K/mcL LAB HEMETOLOGY METHOD 05/24/2025 12:09 PM [facility] Blood Venous blood specimen / Unknown Venipuncture / Unknown 05/24/2025 8:44 AM EDT 05/24/2025 10:11 AM EDT us Tabatha Keen MD LAB BLOOD ORDERABLES Fin al Result [facility] [address] [place] [address], documented in this encounter Visit Diagnoses Diagnosis Unspecified abdominal pain documented in this encounter Care Teams Technical Writer And Editor Relationship Specialty Start Date End Date Tabatha Keen MD [address] [place] [id number] PCP - General Family Medicine 02/16/25 documented as of this encounter
--- OUTSIDE RECORDS SUMMARY | 2025-11-22 18:14 | XMS_ITS | Data Portability ---
Author Organization [facility], Main Office Address [address], [address] [place] [address] Care Team Providers Care Group Account Director Name Role Phone KENNEDY WICK - 2ND FLOOR OTHER Assessment Encounter Date Assessment Date Assessment LastModified by Organization Details LastModified Time 02/13/2021 02/13/2021 01/11/21 WBC 6, Hgb 12.7, Hct 39.9, Plt 257, Na 141, K 3.9, BUN 18, Vision Rehabilitation Therapist 0.94 [email or web address] Not available 02/13/2021 08:19:31 Plan of Treatment Reminders Order Date Submit Date Provider Last Modified By Organization Details Last Modified Time Details Appointments None record ed. Lab None record ed. Referral None record ed. Procedures None record ed. Surgeries None record ed. Imaging None record ed. Medication Orders None record ed. Patient TargetsNo targets recorded. Patient InstructionsNo instructions recorded. Reason for Referral None Reported. Problems Name Problem SNOMED Code Status Onset Date Resolution Date Notes Provider Name and Address Organization Details Recorded Time Pneumonia 593933843 Active 2017 Dodie Phelan MD [address] [facility], [address], [place], [address], [facility] 8 17:44:14 Generaliz ed anxiety disorder 95652810 Active 2017 Dodie Phelan MD [address] [facility], [address], [place], [address], [facility] 8 17:46:11 Hypothyro idism 94703962 Active 2017 Dodie Phelan MD [address] [facility], [address], [place], [address], [facility] 8 17:47:08 History of malignant neoplasm of breast 710300496 Active 2017 Dodie Phelan MD [address] [facility], [address], [place], [address], [facility] 8 17:49:02 Unsteady gait Active 2017 RONAK LORD [address] [facility], [address], [place], [address], [facility] 8 08:27:42 Constipat ion 42858982 Active 2017 MARIO VARELA [address] [facility], [address], [place], [address], [facility] 8 18:46:19 Gastroeso phageal reflux disease without esophagit is 613274373 Active 2017 MARIO VARELA [address] [facility], [address], [place], [address], [facility] 8 18:54:08 Fracture of ankle 70740091 Active 2018 Hermila smith, [facility] 9 10:05:55 Anxiety 99633432 Active 2018 Hermila Burger null, [facility] 9 10:05:55 Malignant neoplasm of breast 510857752 Active 2018 left breast mastectom y Hermila Burger null, [facility] 9 10:05:55 Gastro-es ophageal reflux disease with esophagit is 572624757 Active 2018 Hermila Burger null, [facility] 9 10:05:55 Hypothyro idism 02690950 Active 2018 Hermila smith, [facility] 9 10:05:55 Nausea present 401036965 Active 2019 Yue Wang null, [facility] 0 10:10:33 Vitamin D deficienc y 97482138 Active 2019 MARIO VARELA [address] [facility], [address], [place], [address], [facility] 0 12:14:43 Recurrent falls 407423811 Active 2019 MARIO VARELA [address], [address], [place], [address], [place] [facility] [facility] 0 18:52:48 Environme ntal allergy 371757528 Active 2019 MARIO VARELA [address], [address], [place], [address], [place] [facility] 0 10:50:03 Colitis 24243549 Active 2019 MARIO VARELA [address], [address], [place], [address], [place] [facility] 0 09:42:28 Stercoral ulcer of rectum 06616949 Active 2019 MARIO VARELA [address], [place], [address], [place] [facility] 0 09:45:01 Confusion al state 657208200 Active 2019 MARIO VARELA [address], [place], [address], [place] [facility] 0 19:21:48 Allergic reaction 286934488 Active 2022 Ligia Hernandez NP [address], [place], [address], [facility] 3 08:41:12 Acute nontrauma tic kidney injury 696049907421 103 Active 2022 Ligia Hernandez NP [address], [place], [address], [facility] 3 08:41:32 Adult failure to thrive syndrome 307209892 Active 2022 Ligia Hernandez NP [address], [place], [address], [facility] 3 08:42:07 Impaired cognition 940211404 Active 2022 Ligia Hernadnez NP [address] [facility], [address], [place], [address], [facility] 3 08:51:02 Problem Notes None recorded. Procedures Surgical History Date Name Laterality Status Provider Name and Address Organization Details Recorded Time excision of left breast completed Yue Wang [facility] 08/24/2020 10:37:54 Cholecystectomy completed Yue Wang [facility] 08/24/2020 10:38:24 Imaging Results None recorded. Procedure Notes None recorded. Medical Equipment None Reported. Allergies Allergen ID Allergen Name Allergen Category Reaction Reaction Severity Criticality Documentation Date Start Date Code Code System Note Provider Name and Address Organization Details Recorded Time 79259 promethaz ine medicatio n Not available Not available Not available 05/16/2018 8745 RxNorm BRYCE ZEPEDA, RESERVATION MANAGER [address], [place], [address], [facility] 8 18:39:45 51926 codeine medicatio n Not available Not available Not available 09/07/2019 2670 RxNorm Hermilagallo Burger [facility], [facility] 9 10:05:55 58217 erythromy yessi medicatio n Not available Not available Not available 09/07/2019 4053 RxNorm Yue Wang [facility], [facility] 0 10:39:09 72190 azithromy yessi medicatio n Not available Not available Not available 09/07/2019 92362 RxNorm Yue Wang [facility], [facility] 0 10:39:04 34433 promethaz ine medicatio n Not available Not available Not available 09/07/2019 8745 RxNorm Yue Wang [facility], [facility] 0 10:38:57 58068 amoxicill in medicatio n Not available Not available Not available 10/21/2020 723 RxNorm BRYCE ZEPEDA, RESERVATION MANAGER [address], [address], [place], [address], [facility] 0 18:58:36 96298 clarithro mycin medicatio n Not available Not available Not available 10/21/2020 15576 RxNorm BRYCE ZEPEDA, RESERVATION MANAGER [address], [address], [place], [address], [facility] 0 18:58:46 28194 lansopraz ole medicatio n Not available Not available Not available 10/21/2020 07233 RxNorm MARIO VARELA [address] [facility], [address], [place], [address], [facility] 0 18:58:57 9465 codeine medicatio n Not available Not available Not available 01/09/2018 2670 RxNorm Yue Wang null, [place] [facility] 0 10:39:01 9466 erythromy yessi medicatio n Not available Not available Not available 01/09/2018 4053 RxNorm Dodie Phelan MD [address] [facility], [address], [place], [address], [facility] 8 17:05:47 9467 azithromy yessi medicatio n Not available Not available Not available 01/09/2018 01534 RxNorm Dodie Phelan MD [address] [facility], [address], [place], [address], [facility] 8 17:06:03 Medications Not known to be on any medication Vitals Date Recorded Body height Body mass index (BMI) Body weight Heart rate Respiratory rate Body temperature Oxygen saturation Systolic And Diastolic Provider Name and Address Organization Details Last Updated DateTime 1 152.4 cm 25.2 kg/m2 57974.4 2 g 88 /min 18 /min 97.5 [degF] 95 % 115/63 mm[Hg] MARIO VARELA [address] [facility], [address], [place], [address], [facility] 1 08:22:26 Date Recorded Heart rate Respiratory rate Body temperature Oxygen saturation Systolic And Diastolic Provider Name and Address Organization Details Last Updated DateTime 3 78 /min 18 /min 95.6 [degF] 97 % 135/80 mm[Hg] Ligia Hernandez NP [address] [facility], [address], [place], [address], [facility] 3 08:23:01 Date Recorded Systolic And Diastolic Provider Name and Address Organization Details Last Updated DateTime 11/06/2023 138/78 mm[Hg] Hubert Shaw MD [address] [facility], [address], [place], [address], [facility] 11/06/2023 10:47:17 Date Recorded Heart rate Respiratory rate Body temperature Oxygen saturation Systolic And Diastolic Provider Name and Address Organization Details Last Updated DateTime 3 78 /min 18 /min 97.1 [degF] 97 % 138/78 mm[Hg] OMER PASCAL NP [address] [facility], [address], [place], [address], [facility] 3 13:35:19 Date Recorded Body weight Heart rate Respiratory rate Body temperature Oxygen saturation Systolic And Diastolic Provider Name and Address Organization Details Last Updated DateTime 3 36434.0 8 g 70 /min 16 /min 97.4 [degF] 98 % 128/78 mm[Hg] Ligia Hernandez NP [address] [facility], [address], [place], [address], [facility] 3 12:37:57 Social History Question Answer Notes LastModified by Organizat ion Details LastModified Time Tobacco Smoking Status Never Smoker Dodie Phelan MD [address] [facility], [address], [place], [address], [facility] 01/09/2018 17:34:52 Do You Have An Advance Directive? Yes FULL CODE/no Dialysis Or Nutrition, May Use Hydration Information not available 11/09/2020 How Much Tobacco Do You Chew? None Information not available 01/09/2018 How Many Days In The Past Year Have You Had A Heavy Drinking Consumption (4+ Female, 5+ Male)? 0 Information not available 01/09/2018 Do You Have A Medical Power Of Information Systems Security Officer? Yes HCP Invoked As Psych Deemed Her Incompetent Information not available 11/14/2020 What Was The Date Of Your Most Recent Tobacco Screening? 11/01/2023 [email or web address] Information not available 11/01/2023 How Much Tobacco Do You Smoke? No Information not available 08/24/2020 Has Tobacco Cessation Counseling Been Provided? No Information not available 01/09/2018 Sex: Female Functional Status Question Answer Note LastModified by Organizat ion Details LastModified Time What is your level of alcohol consumption? None Information not available 01/09/2018 Do you or have you ever used smokeless tobacco? Never used smokeless tobacco Information not available 09/07/2019 Do you or have you ever used e-cigarettes or vape? Never used electronic cigarettes Information not available 09/07/2019 Mental Status None recorded. Family History Nothing Reported Notes:family hx of psychiatr ic problems, Grandson with schizophrenia. Medical History Condition Response Anxiety Disorder Y Constipation Y Hypothyroidism Y Gynecological HistoryNo gynecological history recorded. Obstetrics History GPAL:G 0 P 0 0 0 0 Immunizations Vaccine Type Date Status Note Provider Nam e and Address Organization Details Recorded Time Influenza, adjuvanted, quadrivalent, PF 2 completed Swetha smith [facility] 04/14/2024 12:31:15 pneumococcal polysaccharide PPV23 7 completed Swetha smith, [facility] 04/14/2024 12:31:26 Pneumococcal conjugate PCV20, polysaccharide [id number] conjugate, adjuvant, PF 2 completed Swetha smith [facility] 04/14/2024 12:31:42 Tdap 2 completed Swetha smith [facility] 04/14/2024 12:31:59 COVID-19, mRNA, LNP-S, bivalent, PF, 50 mcg/0.5 mL or 25mcg/0.25 mL dose 1 completed Swetha smith [facility] 04/14/2024 12:32:28 COVID-19, mRNA, LNP-S, PF, 30 mcg/0.3 mL dose 1 completed MARIO VARELA [facility] [facility] [address], [place], [address], [facility] 01/31/2021 18:15:03 COVID-19, mRNA, LNP-S, PF, 30 mcg/0.3 mL dose [address], [place], [address], [facility] 01/31/2021 18:15:18 Past Encounters Encounter ID Performer Location Encounter Start Date Encounter Closed Date Diagnosis/Indication Diagnosis SNOMED-CT Code Diagnosis ICD10 Code Diagnosis IMO Codes Diagnosis Note [id number] Dodie Phelan MD [address] [address] 01/09/2018 17:04:52 01/20/2018 14:19:51 Pneumonia 390481838 J15.8 pneumonia vs. mets. Has f/u appt. with oncologist . Continue ceftin 500 mg TID for 10 days total. Generalize d anxiety disorder 53777265 F41.1 With moderate to severe anxiety. Sertraline 50 mg qd restarted this AM, and getting lorazepam 0.5 mg BID scheduled and 0.5 mg q 8 hrs prn. Consult NEG. Pt. says lorazepam works for about 8 hrs. Will schedule lorazepam q 8 hrs for now, 6 AM, 2 PM and 10 PM. Hypothyroidism 20367164 E03.8 Continue levothyrox ine 88 mg qd. Check TSH with next labs. Gastroesop hageal reflux disease without esophagitis 506292447 K21.9 No current sxs, continue pantoprazo le 40 mg qd. Follow History of malignant neoplasm of breast 129085964 Z85.3 Incomplete medical records. Has f/u with oncologist . [id number] MARIO VARELA [address] [address] 01/15/2018 10:50:41 01/21/2018 11:49:12 Pneumonia 132229700 J15.8 ceftin 500 mg TID for 10 days totalfollo w up with oncology Generalize d anxiety disorder 97031815 F41.1 ativan 0.5 mg q 8 hourszolof t 50 mg qdfollow up with PCP Hypothyroidism 00191862 E03.8 levothyrox ine 88 mg qdfollow up with PCP Gastroesop hageal reflux disease without esophagitis 738370928 K21.9 pantoprazo le 40 mg qdfollow up with PCP History of malignant neoplasm of breast 457862864 Z85.3 follow up with oncologist [id number] RONAK OLIVAS [address] [address] 02/26/2018 08:15:38 03/19/2018 14:34:07 Generalized anxiety disorder 20200270 F41.1 Continue Lorazepam 0.5 mg dailyConsu lt NEG Hypothyroidism 48437571 E03.8 Continue Levothyrox ine 88 mcg dailyMonit or TSH History of malignant neoplasm of breast 943113392 Z85.3 Pt states she no longer sees an oncologist Greater than 35 min reviewing chart and with patient I have eval and exam pt agree with A/Gila Shaw MD Unsteady gait 263160124 R26.81 PT OT eval and treatmonit or for change [id number] Hubert Shaw MD [address] [address] 03/05/2018 10:39:41 03/12/2018 15:29:06 Generalized anxiety disorder 67659877 F41.1 zoloft will increase to 75 mg qd as anxiety appears to be limiting factor for patient Unsteady gait 136473637 R26.81 improved with therapynow stable at baselinemo ving towards discharge [id number] MARIO VARELA [address] [place] [address] 05/16/2018 18:39:19 05/20/2018 13:58:25 Generalized anxiety disorder 33595608 F41.1 ativan 0.5 mg q 6 hourswas on zoloft prior admission but not on nowpsych eval and treatmonit or Hypothyroidism 75063696 E03.8 levothyrox ine 88 mg qdTSH with next draw follow up with PCP Constipation 74668214 K5 9.09 will add senna 2 tabs q hshold for loose stoolmonit or bowels Unsteady gait 955554640 R26.81 PT/OT eval and treat Gastroesop hageal reflux disease without esophagitis 420661567 K21.9 pantoprazo le 40 mg qdmonitor for symptoms [id number] MD JOSSUE Monaco [address] [place] [address] 05/21/2018 13:28:19 05/30/2018 10:01:18 Generalized anxiety disorder 88501038 F41.1 see HPIpatient refused discharge from ED stating she would not go back home. continue eval at SNF psych eval at facility Gastroesop hageal reflux disease without esophagitis 605880387 K21.9 protonix 40 mg qdmonitor for sx reliefpati ent uses [place] prnif worsening consider GI eval Hypothyroidism 56867339 E03.8 synthroid 88 mcg qdtsh prn Unsteady gait 391622987 R26.81 PT OT eval and treat [id number] RONAK DONOVAN [address] [place] [address] 05/29/2018 08:08:30 06/10/2018 10:25:10 Generalized anxiety disorder 55783438 F41.1 Ativan 0.5 mg q 6 hours PRN anxietyfol low up with PCP as needed Gastroesop hageal reflux disease without esophagitis 994314910 K21.9 protonix 40 mg qdpatient uses [place] prnif worsening consider GI eval - follow up with PCP Hypothyroidism 72444073 E03.8 synthroid 88 mcg qdtsh prn Unsteady gait 223747754 R26.81 PT OT from [facility] will follow her outptPCA to help with ADLs at home [id number] MARIO VARELA [address] [address] 09/07/2019 08:54:32 09/10/2019 13:20:27 Fracture of ankle 66823887 S82.891D PT/OT eval and treatNWB on right foot x 6 weekskeep splint onfollow up with ortho in 2 weeks-Dr Siddharth davis controltyl enol 650 mg q 6 hrs scheduledo xycodone 5 mg q 6 hrs prn Anxiety 61049447 F41.1 ativan 0.5 mg q 6 hrs prndiscuss ed risk vs benefit of ativan with ptmonitor anxietypsy ch eval and treat prn Gastro-eso phageal reflux disease with esophagitis 224379508 K21.0 pantoprazo le 40 mg qdmonitor for symptoms Hypothyroidism 70606934 E03.8 levothyrox ine 88 mcg qdmonitor TSH Malignant neoplasm of breast 253779262 C50.812 [place] [facility] [place] [id number] Hubert Shaw MD [facility] [address] [address] 09/12/2019 12:21:31 09/15/2019 09:43:44 Fracture of ankle 11111212 S82.891D see HPIright ankle fx now s/p ORIFfollow ortho recsNWB till cleared by orthomonit or for pain control and constipati on Anxiety 10037675 F41.1 monitor utilizatio n of ativanpsyc h eval prn Gastro-eso phageal reflux disease with esophagitis 779567229 K21.0 pantoprazo le 40 mg qdmonitor for symptoms Hypothyroidism 13028893 E03.8 tsh elevated and synthroid increased to 100 mcgrecheck in 6 weeks Malignant neoplasm of breast 812786559 C50.812 hx of breast niharika/p left mastectomy [id number] MARIO VARELA [facility] [address] [address] 09/18/2019 08:52:14 09/21/2019 15:19:53 Fracture of ankle 53836176 S82.891D PT/OTNWB on right foot x 6 weekskeep splint onfollow up with ortho on r Instrum-wa s reschedule d 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 could go with herpain controltyl enol 650 mg q 6 hrs scheduledo xycodone 5 mg q 6 hrs prnstates barely any pain Hypothyroidism 74358911 E03.8 levothyrox ine 100 mcg qdmonitor TSH [id number] MARIO VARELA [facility] [address] [address] 09/23/2019 11:05:52 09/28/2019 16:18:47 Fracture of ankle 79043218 S82.891D PT/OTNWB on right foot x 6 weekskeep splint onfollow up with ortho on r Instrumpai n controltyl enol 650 mg q 6 hrs prnoxycodo ne 5 mg q 6 hrs prndenies pain Hypothyroidism 52168725 E03.8 levothyrox ine 100 mcg qdmonitor TSH Generalize d anxiety disorder 63108846 F41.1 ativan 0.5 mg q 6 [place] [id number] MARIO VARELA [address] [address] 10/05/2019 08:08:45 10/07/2019 15:29:18 Fracture of ankle 07738739 S82.891D PT/OTNWB on right foot x 6 weekskeep splint onfollow up with ortho-Dr Instrumpai n controltyl enol 650 mg q 6 hrs prnoxycodo ne 5 mg q 6 hrs prnc/o pain today at knee but refuses pain medication Hypothyroidism 33577363 E03.8 levothyrox ine 100 mcg qdmonitor TSH Gastroesop hageal reflux disease without esophagitis 538571791 K21.9 pantoprazo le 40 mg qdmonitor for symptoms Anxiety 98335454 F41.1 ativan 0.5 mg q 6 hrs prnmonitor anxietypsy ch eval and treat prn Unsteady gait 130578625 R26.81 monitor for safety [id number] MARIO VARELA [address] [address] 10/07/2019 08:20:53 10/13/2019 12:18:22 Fracture of ankle 27780430 S82.891D NWB on right footkeep cast boot ontylenol 650 mg q 6 hrs prnoxycodo ne 5 mg q 6 hrs prncleanse right medial area on ankle with ns, xeroform and cover qdfollow up with ortho-Dr Instrum Anxiety 01381897 F41.1 ativan 0.5 mg q 6 hrs prnfollow up with PCP Gastro-eso phageal reflux disease with esophagitis 270750225 K21.0 pantoprazo le 40 mg qdfollow up with PCP Hypothyroidism 85173055 E03.8 levothyrox ine 100 mcg qdPCP will need to follow TSH as she has had a increase in dosefollow up with PCP Malignant neoplasm of breast 082045466 C50.812 left mastectomy in pastfollow up with PCP Unsteady gait 802336535 R26.81 follow up with PCP [id number] MARIO VARELA [facility] [address] 08/24/2020 08:39:25 08/30/2020 15:36:33 Gastroesophageal reflux disease without esophagitis 416648436 K21.9 Pantoprazo le 40 mg dailyfollo w up with PCP Constipation 09625229 K5 9.09 Miralax 17 gm DailyColac e 100 mg BIDSenna 2 tabs q hsBisacody l sup 10 mg daily PRNFleet enema daily PRN hold for loose stoolfollo w up with PCP Hypothyroidism 29248683 E03.8 levothyrox ine 75 mcg qdfollow up with PCP Anxiety 23089202 F41.1 follow up with PCP Nausea present 072006936 R11.0 Ondansetro n 4 mg q 4 hrs prnfelt this may be bowel related-co nstipation so miralax was scheduled dailywill need to follow up with PCP Vitamin D deficiency 347 51905 E56.8 vitamin D 2000 iu qdfollow up with PCP [id number] MARIO VARELA [facility] [address] [address] 10/21/2020 09:21:33 10/24/2020 15:36:51 Recurrent falls 865695833 R29.6 PT/OT eval and treatmonit or for safety Hypothyroidism 96797607 E03.8 levothyrox ine 75 mcg qdmonitor TSH Nausea present 235256861 R11.0 zofran 4 mg q 6 hrs prnmonitor this as it is recurrent Vitamin D deficiency 347 50878 E56.8 vitamin D 1000 iu qdmonitor level Gastroesop hageal reflux disease without esophagitis 590071993 K21.9 protonix 40 mg bidmonitor for symptoms Anxiety 45582585 F41.1 monitorpsy ch eval and treat prn Malignant neoplasm of breast 475405488 C50.812 left mastectomy in [facility] r [id number] MARIO VARELA [facility] [address] [address] 10/24/2020 10:45:07 10/26/2020 13:24:00 Generalized anxiety disorder 97770184 F41.1 anxiety noted today about not having any of her clothesadm issions called son to get her some from her homepsych eval and treatmonit or Gastroesop hageal reflux disease without esophagitis 192910220 K21.9 protonix 40 mg bidmonitor for symptoms [id number] Dodie Phelan MD [facility] [address] 10/25/2020 16:20:37 10/26/2020 13:31:59 Recurrent falls 191912906 R29.6 With issues with balance and safety awareness per rehab. Needs PT/OT for strengthen ing, balance, gait training, safety and function. Continue fall precaution s. Planning on LTC after rehab Hypothyroidism 47385259 E03.8 Continue levothyrox ine 75 mcg qdMonitor TSH yearly. Nausea present 755348044 R11.0 No nausea currently, only after certain foods. Will try and get foods pt is more accustomed too. She says she prefers estonian foods . Continue zofran 4 mg q 6 hrs prn and pantoprazo le 40 mg BID. Of note, pt's daughter told her it isn't good to take protonix. I explained it is fine, but not for years, only for months.Chrissy garnica sxs. Vitamin D deficiency 347 91046 E56.8 Continue vitamin D 1000 IU qdMonitor level q 6 months. Gastroesop hageal reflux disease without esophagitis 583743661 K21.9 Continue pantoprazo le 40 mg BID.Monito r sxs Anxiety 56446015 F41.1 Consider meds.Psych consult. Malignant neoplasm of breast 921909994 C50.812 hx of. s/p left mastectomy in 2002, then tx for lung mets several years later.F/U with oncologist as planned. [id number] MARIO VARELA [facility] [address] 10/31/2020 09:54:45 11/03/2020 15:50:59 Environmental allergy 481168785 T78.49XA patient states allergiess he did not take anything at homewill add zyrtec 10 mg q hsmonitor for resolution Nausea present 117982849 R11.0 zofran 4 mg q 6 hrs prnstates she still has itmay consider adding a third dose of carafate [id number] MARIO VARELA [facility] [address] [address] 11/04/2020 08:27:13 11/07/2020 15:14:21 Nausea present 925715941 R11.0 zofran 4 mg q 6 hrs prnmonitor Gastroesop hageal reflux disease without esophagitis 958041138 K21.9 protonix 40 mg bidmonitor [id number] MARIO VARELA [facility] [address] [address] 11/09/2020 09:20:47 11/11/2020 13:24:19 Colitis 51049213 K51.811 levofloxac in 750 mg qd x 4 daysmetron idazole 500 mg tid x 4 dayswill add probiotic bidhigh fiber dietmonito r stools Gastroesop hageal reflux disease without esophagitis 957072307 K21.9 carafate 10 mls bidmonitor Hypothyroidism 77583599 E03.8 levothyrox ine 75 mcg qdmonitor TSH Recurrent falls 71731656 2 R29.6 PT/OT eval and treatmonit or for safety Stercoral ulcer of rectum 83852437 K62.[address] Saenz at [facility] [place] gastro on 11/22/20fo r biopsy resultswil l also need another colonoscop y in 6-12 monthsmoni tor Vitamin D deficiency 347 47415 E56.8 monitor level Malignant neoplasm of breast 573242754 C50.812 left mastectomy in pastmonito r Constipation 89577461 K5 9.09 miralax 17 gm qdcolace 100 mg bidbowel protocol Environmental allergy 42 8319646 T78.49XA zyrtec 10 mg q hsmonitor Anxiety 62271965 F41.1 monitorpsy ch eval and treat prn [id number] MARIO VARELA [facility] [address] [address] 11/14/2020 11:35:35 11/22/2020 16:09:47 Confusional state 848764784 F44.89 psych in to eval patient for competency CCA and HCP felt she was not competentt cody also felt she was not safe at home despite assistance in placepsych deemed her to have poor insightwil l invoke hcpwill be 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 care now that hcp has been invoked [id number] MARIO VARELA [facility] [address] 11/15/2020 10:24:44 11/22/2020 16:38:59 Colitis 03000068 K51.811 completed antibiotic s probiotic bidhigh fiber dietmonito r stools Confusional state 634253 003 F44.89 psych deemed incompeten t to make decisionsH CP invokedmon itor Constipation 93610540 K5 9.09 miralax 17 gm qdcolace 100 mg bidsenna 17.2 mg qd prnbowel protocol Environmental allergy 42 6800142 T78.49XA zyrtec 10 mg q hsmonitor Gastroesop hageal reflux disease without esophagitis 805422305 K21.9 carafate 10 mls bidprotoni x 40 mg bidmonitor Generalize d anxiety disorder 25093861 F41.1 psych eval and treat monitor Hypothyroidism 17179718 E03.8 levothyrox ine 75 mcg qdmonitor TSH Recurrent falls 86603569 2 R29.6 PT/OTmonit or for safety Stercoral ulcer of rectum 50763944 K62.[address] Saenz at [facility] [place] gastro on 11/28/20fo r biopsy resultswil l need another colonoscop y in 6-12 monthsmoni tor Vitamin D deficiency 347 46590 E56.8 vitamin D 1000 iu qdmonitor level [id number] MAIRO VARELA [facility] [address] [address] 12/08/2020 13:06:06 12/14/2020 09:09:08 Confusional state 648214464 F44.89 psych deemed incompeten tHCP invokedmon itor for safety Anxiety 48186770 F41.1 monitorpsy ch eval and treat prn Recurrent falls 36560030 2 R29.6 PT/OT eval and treat prnmonitor for safety [id number] Bri Bangura MD [facility] [address] 12/14/2020 08:08:09 12/16/2020 15:25:16 Gastro-esophageal reflux disease with esophagitis 863052972 K21.00 sucralfate 1 gm bidpantopr azole 50 mg bidwill monitor History of malignant neoplasm of breast 920505804 Z85.3 fu oncology Hypothyroidism 04316527 E03.8 levothyrox ine 75 mcg dailywill monitor Stercoral ulcer of rectum 82662687 K62.6 fu GI prnwill continue to try to avoid constipati onwill monitor Impaired cognition 04354 6002 R41.89 will monitor and support as neededHCP invoked [id number] MARIO VARELA [facility] [address] [address] 01/06/2021 10:49:19 01/09/2021 10:48:18 Confusional state 945436831 F44.89 HCP invokedmon itor for safety Constipation 04134922 K5 9.09 miralax 17 gm qdcolace 100 mg bidsenna 17.2 mg qd prnbowel protocolmo nitor bowels Environmental allergy 42 7451030 T78.49XA zyrtec 10 mg q hsmonitor Gastroesop hageal reflux disease without esophagitis 418592503 K21.9 carafate 10 mls bidprotoni x 40 mg bidmonitor for symptoms Generalize d anxiety disorder 41436375 F41.1 psych eval and treat prn monitor for anxiety Hypothyroidism 72002946 E03.8 levothyrox ine 75 mcg qdmonitor TSH Recurrent falls 97063827 2 R29.6 PT/OT eval and treat prnmonitor for safety Vitamin D deficiency 347 47514 E56.8 vitamin D 1000 iu qdmonitor level Colitis 77187728 K51.811 probiotic bidmonitor stools [id number] MARIO VARELA [facility] [address] [address] 02/13/2021 08:09:44 02/17/2021 08:56:01 Recurrent falls 832279798 R29.6 follow up with PCP Hypothyroidism 94481846 E03.8 levothyrox ine 75 mcg qdfollow up with PCP Nausea present 326369627 R11.0 zofran 4 mg q 6 hrs prnfollow up with PCP Vitamin D deficiency 347 81393 E56.8 vitamin D 1000 iu qdfollow up with PCP Gastroesop hageal reflux disease without esophagitis 240582632 K21.9 carafate 1 gm bidprotoni x 40 mg bidmaalox 30 mls tidfollow up with PCP Anxiety 73362219 F41.1 follow up with PCP Malignant neoplasm of breast 857112028 C50.812 left mastectomy in pastfollow up with PCP Colitis 69489201 K51.811 probiotic bidfollow up with PCP Constipation 81854632 K5 9.09 miralax 17 gm qdcolace 100 mg bidsenna 17.2 mg qd prnfollow up with PCP Environmental allergy 42 1765152 T78.49XA zyrtec 10 mg q hsfollow up with PCP [id number] Ligia Hernandez NP [address] [address] 11/01/2023 08:21:06 11/05/2023 13:03:57 Constipation 53898245 K59.09 *miralax 17 gm qdcolace 100 mg bid prnbowel protocolmo nitor bowels Gastroesop hageal reflux disease without esophagitis 350711950 K21.9 carafate 10 mls bidlansopr azole 30 mg po daily*pepc id 20 mg dailymonit or for symptoms Generalize d anxiety disorder 69611963 F41.1 quetiapine 25 mg po daily @ 1700psych eval and treat prnmonitor for anxiety Hypothyroidism 30761269 E03.8 levothyrox ine 75 mcg qdmonitor TSH prn Recurrent falls 42054177 2 R29.6 workup for fall in hosp neg for acute concernsPT /OT eval and treat prnmonitor for safety Colitis 84818051 K51.811 hx ofmonitor stools Allergic reaction 339159 005 T78.40XA dipehydram ine 25 mg po q 6 prnfamotid ine 20 mg po dailymonit or for reoccurenc e Acute nont raumatic kidney injury 1622460658 69954 N17.9 cr high in hosp secondary to poor po intakeimpr bridgette with IVF in hospital and increased pomonitor bmp weeklymont ior for s/s of dehydratio n Adult fail ure to thrive syndrome 614845589 R62.7 po po intake at home and failingens ure/medpas s 1 po biddietici an consult for increased intake/cho icesencour age po fluidsmoni tor History of malignant neoplasm of breast 755533762 Z85.3 hx ofmonitorf u with oncology prn Impaired cognition 58803 6002 R41.89 pt invokedsup portive caremonito r Xerosis du e to atopic dermatitis 645845362 L85.3 ammonium lactate 12 % cream topically bid to feet bidmonitor for improvemen t Leukocytosis 585375015 D 72.829 leukocytos is in hosp with neg workupmoni tor cbc weeklymoni tor s/s of infection vitals [id number] Hubert Shaw MD [address] [address] 11/06/2023 10:46:38 11/13/2023 10:55:02 Recurrent falls 499271156 R29.6 see HPIPT OT eval and treatmonit or fall risk and need for increased support in community Acute nont raumatic kidney injury 2957369671 35474 N17.8 see HPIbaselin e cre=1.2mon itor renal functionav oid nephrotoxi c meds as ablenephro consult prn Adult fail ure to thrive syndrome 830268174 R62.7 monitor weight and PO intakediet natali to follow Impaired cognition 87500 6002 R41.89 see above with unknown baselinein [facility] HCPmonitor for behaviorsp sych eval prn Constipation 59389736 K5 9.09 bowel protocolmo nitor for effect Gastroesop hageal reflux disease without esophagitis 805203322 K21.9 hx GI bleedconti nue out patient medsmonito r for sx relief Generalize d anxiety disorder 57149822 F41.1 of note on seroquel out patientmon itor for effect on current medication swill defer to PCP at this timepsych eval prn Hypothyroidism 82600590 E03.8 synthroid 75 mcg qdmonitor tsh prn Colitis 57964197 K51.811 added to PMH History of malignant neoplasm of breast 845053071 Z85.3 hx of s/p left mastectomy added to PMHcoordin ate with oncology prn 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 carrying dx of baseline cognitive impairment appears worsened by above eventconti nue supportive care monitor level of insight [id number] OMER PASCAL NP [address] [address] 11/12/2023 13:34:20 11/19/2023 14:15:09 Acute nontraumatic kidney injury 4734533877 64285 N17.9 cr high in hosp secondary to poor po intakeimpr bridgette with IVF in hospital and increased pomonitor bmp weekly - apparently not done last week, repeat in ammontior for s/s of dehydratio n Allergic reaction 632290 005 T78.40XA Resolveddi pehydramin e 25 mg po q 6 prnfamotid ine 20 mg po dailymonit or for reccurence Adult fail ure to thrive syndrome 037166715 R62.7 poor po intake at home and failingens ure/medpas s 1 po bid added heredietic john consultede ncourage po fluidsCNA reporting good intakeweig ht stablemoni tor Leukocytosis 474678838 D 72.829 leukocytos is in hosp with neg workupreso lvedmonito r s/s of infection, vitals Recurrent falls 25437259 2 R29.6 workup for fall in hosp neg for acute concernsPT /OT eval and treat - making gains, ? home end of weekmonito r for safety Impaired cognition 06721 6002 R41.89 pt invokedsup portive caremonito r Constipation 06526392 K5 9.09 Continue:* miralax 17 gm qdcolace 100 mg bid prnbowel protocolmo nitor bowels, adjust meds prn Gastroesop hageal reflux disease without esophagitis 545947703 K21.9 Continue:c arafate 10 mls bidlansopr azole 30 mg po daily*pepc id 20 mg dailymonit or for symptoms Generalize d anxiety disorder 50077391 F41.1 Doing well while hereContin ue quetiapine 25 mg po daily @ 1700psych eval and treat prnmonitor mood, behaviors Hypothyroidism 81210715 E03.8 Continue levothyrox ine 75 mcg qdmonitor TSH prn Colitis 56986754 K51.811 hx ofDrop in H/H - ? dilutional Denies s/s active bleeding - no BRBPR, melenamoni tor stoolsRepe at CBC - was to be done weekly, check x 1 in am History of malignant neoplasm of breast 205182506 Z85.3 hx ofmonitorf u with oncology prn Xerosis du e to atopic dermatitis 022617849 L85.3 ammonium lactate 12 % cream topically bid to feet bidmonitor for improvemen t Anemia 306983586 D64.9 Hgb 14.9 ->10.8Norm ocyticH/O GI Bleed? dilutional (ARF)No s/s active bleed at this time.Pt. toilets self, denies any active bleeding or dark/melan otic stool. No GI upset, abd. pain.Repea t CBC in am [id number] Ligia Hernandez NP [address] [address] 11/14/2023 12:36:44 11/19/2023 14:36:37 Acute nontraumatic kidney injury 5181558427 74684 N17.9 resolvedcr high in hosp secondary to poor po intakeimpr bridgette with IVF in hospital and increased po12/1 cr stable at 0.92 here and this weeks labs reordered- apparently not done last week, repeat todaymonti or for s/s of dehydratio n outpt with pcp Anemia 898002360 D64.9 Hgb 14.9 ->10.8Norm ocyticH/O GI Bleed? dilutional (ARF) without s/s active bleedPt. toilets self, denies any active bleeding,d ark/melano tic stool,GI upset, abd. pain.Repea t CBC today prior to dcfu with pcp outpt Allergic reaction 379378 005 T78.40XA Resolveddi pehydramin e 25 mg po q 6 prnfamotid ine 20 mg po dailymonit or for reccurence outpt Adult fail ure to thrive syndrome 100000905 R62.7 poor po intake at home and failingens ure/medpas s 1 po bid added heredietic john consultede ncourage po fluidsCNA reporting good intakeweig ht stablemoni tor Leukocytosis 847579200 D 72.829 leukocytos is in hosp with neg workupreso lvedmonito r s/s of infection, vitals Recurrent falls 24966984 2 R29.6 workup for fall in hosp neg for acute concernswo rked with therapy and seems at baseline heremonito r for safety at home with help of pcavna to monitor for safetyfu with pcp outpt Impaired cognition 48562 6002 R41.89 pt invokedsup portive caremonito r outpt with pcp Constipation 91016330 K5 9.09 miralax 17 gm qdcolace 100 mg bid prnmonitor bowels, adjust meds prn outpt with pcp Gastroesop hageal reflux disease without esophagitis 646423254 K21.9 Continue:c arafate 10 mls bidlansopr azole 30 mg po daily*pepc id 20 mg dailymonit or for symptoms outpt with pcp Generalize d anxiety disorder 44352614 F41.1 Doing well while hereContin ue quetiapine 25 mg po daily @ 1700psych eval and treat prn outptmonit or mood, behaviors outpt with pcp Hypothyroidism 99879003 E03.8 Continuele vothyroxin e 75 mcg qdmonitor TSH prn outpt with pcp Colitis 36209460 K51.811 hx ofDenies s/s active bleeding - no BRBPR, melenaslig ht drop in h/hRepeat CBC tonight and dc to home in amfu with pcp outpt History of malignant neoplasm of breast 905939282 Z85.3 hx ofmonitorf u with oncology prn Xerosis du e to atopic dermatitis 609918496 L85.3 ammonium lactate 12 % cream topically bid to feet bidmonitor for improvemen t outpt with pcp Health Concerns Section Related Observation LastModified by Organization Detai ls LastModified Time None Recorded Concern Status LastModified by Organization Details LastModified Time None Recorded Advance Directives Directive Y: FULL CODE/no dialysis or nutrition, may use hydration Payers Insurance Date Sequence Insurance Name Policy Number Policy Dominguez Covered Member ID Odminguez Member ID Guarantor Name 11/19/2023 1 [facility] - DOS ON OR AFTER 2023 - MEDICARE ADVANTAGE [place] (MEDICARE REPLACEMENT/AD VANTAGE - PPO) Kaley Taylor [id number] Kaley Taylor 09/07/2019 1 [place]: [employer] Kaley ford [id number] Kaley Taylor 11/01/2023 1 [facility] - DOS PRIOR TO 2023 - DUAL ELIGIBLE (MEDICARE REPLACEMENT/AD VANTAGE - HMO) Kaley ford [id number] Kaley Taylor Notes Date Note Type Note Provider Name and Address Organization Details Recorded Time 02/14/20 21 text/htm l A 80 year old female being seen for a discharge summary. Patient was coming to [facility] to see if she could be admitted for LTC. When she was walking on the sidewalk she fell hitting her head. She was taken to the [facility] [place] er. Head and spine CT revealed no evidence of acute intracranial hemorrhage or territorial infarction, mild small vessel ischemic changes, chronic left temporal lobe gliosis and mild multilevel facet arthropathy. EKG revealed sinus rhythm. Chest x-ray revealed a left lateral mid lung opacity that is less apparent than previous films. She has a bruise on her right eye. Labs were unremarkable. There was question of hypotension being the cause of the fall. She has been sent here for short term rehab with the transition to senior care care. Patient has been doing well since here. 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 She ambulates independently around and eats/drinks well. No concerns with bowel or bladder. No further bleeding. She will need to follow up with her pcp. Medical history of anxiety, GERD, breast Ca, hypothyroidism, falls and vitamin D deficiency. MARIO VARELA [address] [facility] [address], [address], [place], [address], [facility] [employer] [facility] 02/13/2021 09:13:40 11/01/20 23 text/htm l Pt seen here for an initial intake. 83 yo female from home with hx of anxiety, chronic intermittent dizziness, breast cancer s/p left mastectomy, colitis, GIB, hypothyroidism and mild cognitive impairment a Medical history of anxiety, colitis, confusion, constipation, environmental allergy, GERD, breast cancer, hypothyroidism, falls and vitamin D deficiency admitted from 10/29- 10/31/23 at [facility] [place] for fall, decreased po intake, rash, and secondary FÁTIMA now at [facility] on 10/31 for continued care and rehab. Her workup included labs showing cr of 2.51, mild leukocytosis, and negative urinalysis. She was given pepcid, solu medrol, benedryl, and 1 liter of fluid. A cervical spine and head CT completed and negative. She was started on ensure, benedryl, famotidine, quetiapine and miralax during her hospitalization. On exam, she denies any pain, itching, rash, shortness of breath, chest pain, difficulty moving her extremities or difficulty urinating. She is sitting up in bed in [facility] alert speaks in Mongolian. She scores a 6/30 on the SLUMS scale and will be invoked today. She is a fall risk with recent fall. She is very warm warm to touch but no rash is noted. Her bilateral feet have scale and crusts. MOLST: address with HCP Ligia Hernandez NP [address], [address], [place], [address], [facility] 11/01/2023 09:24:46 11/06/20 23 text/htm devendra Patient is an 83 yo female admit from hospital presenting after falling off commode. Found to be in ARF with toxic metabolic encephalopathy secondary to this. Cre=2.6 on hospital admit with baseline cre=1.2. Improved with IVF. Imaging negative for acute injury Patient with baseline impaired cognition however is conversant in mosotho H significant forchronic dizziness hx breast ca s/p left mastectomycolitishx GI bleedhypothyroidcognitive impairmentgerd admit to facility for continued care and therapy Hubert Shaw MD [address] [facility] [address], [address], [place], [address], [facility] 11/06/2023 11:03:52 11/12/20 23 text/htm devendra Roche is seen today for an acute visit. She is an 83 yo lady admitted to [facility] from [facility] [place] [facility] for continued care and rehab after a brief hospitalization related to ARF and metabolic encephalopathy.She presented to the ER after falling off the toilet at home. Creat 2.6 (baseline 1.2), improved with IVF. Imaging negative for acute injury Since she has been here, she has been working with rehab, making gains.Appetite good, VSS.Labs 11/01 BMP stable, CBC with drop in hgb 14.9 ->10.8, ? dilutional Upon exam, Kaley is in her room, resting in bed. Alert, NAD, pleasant, cooperative. SHe says she is feeling good, eager to go home. Has no complaints, ate 75% of lunch today. She denies passing any blood or black stool, says BMs have been brown. Nsg. notes reviewed (none).Case discussed with pt's CALCULUS TUTOR, eating and drinking well, no behaviors or concerns at this time. PMH significant forchronic dizziness hx breast ca s/p left mastectomycolitishx GI bleedhypothyroidcognitive impairmentgerd admit to facility for continued care and therapy OMER PASCAL NP [address] [place] [address], [address], [place], [address], [facility] 11/12/2023 14:09:22 11/14/20 23 text/htm devendra Roche is seen today for a discharge summary visit. PMH: s/p left breast CA with mastectomy (found in 2002, then chemo and radiation, then lung mets and more chemo and radiation), anxiety, vitamin D deficiency, gastritis, GERD, hypothyroidism, s/p cholecystectomy, and s/p lung bx. 83 yo female initially admitted to [facility] from [facility] [place] [facility] on 10/31/23 for continued care and rehab after a brief hospitalization related to ARF and metabolic encephalopathy She presented to the ER after falling off the toilet at home. Creat 2.6 (baseline 1.2), improved with IVF. Imaging negative for acute injury .She was started on ensure, benedryl, famotidine, quetiapine and miralax during her hospitalization. She has done well here at rehab and making gains. She has a walker at home and is using one here. She is planning on going home at 11 am graciela am with family. She initially did not like the thickened liquids and she tried alternatives and now eating/drinking better. On 11/07 she was evaluated by psychiatric social worker supervisor and no medication changes at this time. Will cont seroquel at home in the evening as she has done well on it here. Labs 11/01 BMP stable, CBC with drop in hgb 14.9 ->10.8, ? dilutional.Unclear why she did not get labs this week. Will order labs tonight or graciela am to ensure labs stable on discharge tomorrow. Upon exam, Kaley is in her room, resting in bed. She states she had a mild headache this am, now resolving with tylenol. She denies any concerns and states she does not have black, bloody, or tarry stools today. She does not know the name of her pcp but states her road roller operator hot mix at home knows. Ligia Hernandez, ENZO [address] [facility] [address], [address], [place], [address], [facility] 11/14/2023 13:25:20 OBGyn Episode No OBEpisode recorded.
--- OUTSIDE RECORDS SUMMARY | 2025-11-22 18:14 | XMS_ITS | Encounter Summary ---
Author Organization [employer] Address [address] [place] [address] Care Team Providers Care Mechanic/Welder Name Role Phone Dee Dee Rueda MD Primary Care Provide r Reason for Visit * Reason Comments Med Refill Encounter Details Date Type Department Care Team ([facility] st Contact Info) Description 01/28/2024 Refill [facility] [address] [place] [address] Comfort Marrero FNP [address] [place], [place] [phone] Acquired hypothyroidism Social History Tobacco Use Types [...] documented as of this encounter Care Teams Mechanic/Welder Relationship Specialty Start Date End Date Dee Dee Rueda MD [address] [place] [id number] PCP - General Family Medicine 09/07/22 documented as of this encounter
--- OUTSIDE RECORDS SUMMARY | 2025-11-22 18:14 | XMS_ITS ---
Author Organization [facility] Care Team Providers Care Ordnance Technician Name Role Phone Osmani, Tabatha Garcia Unavailable Unavailable Nori Delong Unavailable Unavailable Kenji GIRALDO, Jeimy Fleming Unavailable Unavailable Miguelina Martínez Unavailable Unavailable Daxa Gillespie Unavailable Unavailable Nazanin Sandra Unavailable Unavailable Diane Junior Unavailable Unavailable Allergies and adverse reactions Code CodeSystem Substance Reaction Severity StartDate Concern Status 723 RXNORM Amoxicillin Unknown 02/11/2025 active 05993 RXNORM Azithromycin Abdominal pain (code- 92648068, SNOMED CT) Severe 02/11/2025 active 66468 RXNORM Clarithromycin Unknown 02/11/2025 active 2670 RXNORM Codeine Nausea and vomi ting (code- 16498105, SNOMED CT); Syncope (code- 215477670, SNOMED CT) Moderate 02/11/2025 active 4053 RXNORM Erythromycin Urticaria (code - 122645208, SNOMED CT); Abdominal pain (code- 11675835, SNOMED CT) Moderate 02/11/2025 active 8745 RXNORM Promethazine Nausea (code- 334407835, SNOMED CT); Dizziness (code- 865291079, SNOMED CT) Moderate 02/11/2025 active Care Team Name Role Address Phone Organization Juarez Keen PCP [address] [facility] [address], [place], [address], [place] (Office): : [facility] 02/11/2025 - present Nori Baljeet [facility] (Office): : [facility] 02/11/2025 - present Jeimy Phillip NP [address] [facility] [address] (Office): [facility] 02/11/2025 - present Miguelina Martí[place], [address], [facility] (Office): [facility] 02/11/2025 - present Daxa Gillespie [place], [facility] 02/11/2025 - present Nazanin Sandra [place], [facility] Marilee [facility] 02/11/2025 - present Diane Junior [address] [facility] [address], [place], [address], [facility] (Office): [facility] 02/11/2025 - present Encounters Encounter Type Code Code System Description Performer Discharge Disposition Service Delivery Location Date Ambulatory Encounter CPT Code = [id number] Hypothyroidism [facility] n Address: [address] [place], [place] [address]by [facility] [place], [address], [place]. 02/11 Ambulatory Encounter CPT Code = [id number] Dementia [facility] n Address: [facility] [place], [address], [facility]. 02/11 Ambulatory Encounter CPT Code = [id number] Gastroesophageal reflux disease without esophagitis [facility] n Address: [facility] [place], [address]. 02/11 Ambulatory Encounter CPT Code = [id number] Abnormal weight loss [facility] n Address: [facility] [place], [address] [place] [address]. 02/11 Ambulatory Encounter CPT Code = [id number] Adult failure to thrive syndrome [facility] n Address: [facility] Ra , [place] PA, [address] [place] [address]. 02/11 Ambulatory Encounter CPT Code = [id number] Idiopathic osteoarthritis [facility] n Address: [facility] [place], [place], [place], [address] [place] [address]. 02/11 Ambulatory Encounter CPT Code = [id number] Constipation [facility] n Address: [facility] [place], [place], [place], [address] [place] [address]. 02/11 Ambulatory Encounter CPT Code = [id number] Fall [facility] n Address: [facility] [place], [place], [place], [address] [place] [address]. 02/11 Ambulatory Encounter CPT Code = [id number] Abdominal pain [facility] n Address: [facility] Cain, [place], [place], [address] [place] [address]. 02/11 Ambulatory Encounter CPT Code = [id number] Fall [facility] n Address: [facility] Ra [facility] [place], [place], [address] [place] [address]. 02/11 Ambulatory Encounter CPT Code = [id number] Incoordination [facility] n Address: [facility] Ra , [place], [address] [place] [address]. 02/11 Ambulatory Encounter CPT Code = [id number] Dementia associated with another disease [facility] n Address: [facility] Ra , [place], [place], [address] [place] [address]. 02/11 Ambulatory Encounter CPT Code = [id number] Nausea and vomiting [facility] n Address: [facility] Ra , [place], [address] [place] [address]. 02/11 Ambulatory Encounter CPT Code = [id number] Oropharyngeal dysphagia [facility] n Address: [address] [place], [place] [address], [address] [place] [address]. 02/11 Ambulatory Encounter CPT Code = [id number] Muscle weakness [facility] n Address: [facility] [place], [address] [place] [address]. 02/11 Ambulatory Encounter CPT Code = [id number] Unsteady when standing [facility] n Address: [facility] [place], [address] [place] [address]. 02/11 Ambulatory Encounter CPT Code = [id number] Abnormal gait [facility] n Address: [facility] [place], [address] [place] [address]. 02/11 Ambulatory Encounter CPT Code = [id number] Coordination problem [facility] n Address: [facility] [place], [address], [place]. 02/11 Ambulatory Encounter CPT Code = [id number] Dysphagia [facility] n Address: [facility] [place], [address] [place] [address]. 02/11 Ambulatory Encounter CPT Code = [id number] Disorder of cellular component of blood [facility] n Address: [facility] [place], [address] [place] [address]. 02/11 Ambulatory Encounter CPT Code = [id number] Disorder of digestive system [facility] n Address: [facility] [place], [address], [place]. 02/11 Ambulatory Encounter CPT Code = [id number] Gastrointestinal hemorrhage [facility] n Address: [facility] , [facility] [place], [address], [place]. 02/11 Ambulatory Encounter CPT Code = [id number] Syncope and collapse [facility] n Address: [facility] Ra , [place], [address] [place] [address]. 02/11 Ambulatory Encounter CPT Code = [id number] Hemorrhage of rectum and anus [facility] n Address: [facility], [facility] [place], [address] [place] [address]. 02/11 Ambulatory Encounter CPT Code = [id number] Fall [facility] n Address: [facility] [place], [address] [place] [address]. 02/11 Ambulatory Encounter CPT Code = [id number] Malignant tumor of breast [facility] n Address: [facility] [place] [facility] [place], [address] [place] [address]. 02/11 Ambulatory Encounter CPT Code = [id number] Hematuria syndrome [facility] n Address: [address] [place], [place] [address]by [facility] [place], [address] [place] [address]. 02/11 Goals Section Goals Description Status Target Date Kaley will be able to commu nicate basic needs on a daily basis through the review date. Active 02/15/2026 Kaley will be free of falls through the review date. Active 02/15/2026 Kaley will communicate via an product tester fiberglass. Acti ve 02/15/2026 Kaley will continue to be a ctive in programs of choice 3x a week and be open to room visits through next review date. Active 0 02/15/2026 Kaley will maintain current level of function in self-care ADLs through the review date. Active 02/15/2026 Kaley will maintain current level of mobility through review date. Active 02/15/2026 Kaley will maintain or deve lop clean and intact skin by the review date. Active 02/15/2026 Kaley will not have an inte rruption in normal activities due to pain through the review date. Active 02/15/2026 Kaley will remain free from skin breakdown due to incontinence and brief use through the review date. Active 02/15/2026 Kaley will remain free of c omplications related to immobility, including contractures, thrombus formation, skin-breakdown, fall related injury through the next review date. Active Kaley's risk for septicemia will be minimized/prevented via prompt recognition and treatment of symptoms of UTI through the review date. 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 Active 02/15/2026 Diet texture will be appropr iate to meet Kaley's needs AEB po's avg >75% 2 of 3 meals with no significant wt changes, no s/s dehydration. Active 02/15/2026 The resident will be free of minor injury throug h the review date. Active 02/15/2026 Functional Status Code Name Recorded Time Value Entered By Chair/qzp-nn-pcmit transfer 11/21/2025 Independent aboeing Eating 11/21/2025 Setup or clean-up assistance carcott Indicate the type of wheelchair or scooter used 11/21/2025 Independent aboeing Lower body dressing 11/21/2025 Not assessed aboeing Lying to sitting on side of bed 11/21/2025 Independent aboeing Oral hygiene 11/21/2025 Not assessed aboeing Personal hygiene 11/21/2025 Not assessed aboeing Putting on/taking off footwear 11/21/2025 Independen t aboeing Roll left and right 11/21/2025 Independent aboeing Shower/bathe self 11/21/2025 Not assessed aboeing Sit to lying 11/21/2025 Independent aboeing Sit to stand 11/21/2025 Independent aboeing Toilet transfer 11/21/2025 Supervision or t ouching assistance aboeing Toileting hygiene 11/21/2025 Supervision or touching assistance aboeing Upper body dressing 11/21/2025 Not assessed aboeing Walk 10 feet 11/21/2025 Supervision or t ouching assistance aboeing Walk 150 feet 11/21/2025 Not assessed aboeing Walk 50 feet 11/21/2025 Not assessed aboeing Wheel 150 feet 11/21/2025 Not assessed aboeing Wheel 50 feet with two turns 11/21/2025 Not assessed aboeing Immunizations Immunization Status Vaccine Details Vaccine Code CodeSystem Date Notes PVC20 completed Pneumococcal conjugate vaccine 20-valent (PCV20), polysaccharide [id number] conjugate, adjuvant, preservative free 216 CVX created date: 04/23/2025 administer ed date: 09/14/2020 Comirnaty Booster completed SARS-COV-2 (COVID-19) vaccine, mRNA, spike protein, LNP, preservative free, george-sucrose, 30 mcg/0.3 mL dose lotNumber: [id number] expiry: 09/11/2025 309 CVX created date: 06/07/2025 consent date: 06/03/2025 administer ed date: 06/03/2025 Educated by on [facility] SARS-COV-2 (COVID-19) vaccine, mRNA, spike protein, LNP, preservative free, george-sucrose, 30 mcg/0.3 mL dose lotNumber: [id number] expiry: 05/27/2026 Given Left Deltoid 309 CVX created date: 10/07/2025 administer ed date: 10/07/2025 Flu AD completed Influenza, adjuvanted, inactivated, quadrivalent, injectable, preservative free lotNumber: [id number] expiry: 04/27/2026 Given Left Deltoid 205 CVX created date: 10/07/2025 administer ed date: 10/07/2025 Medications Section Medication Name Status Code CodeSystem Dose Route Frequency Admin Type Sig Text Start Date End Date Indication Levothyroxi ne Sodium Oral Tablet 75 MCG active 45523 2 RXNORM 1 table t Oral in the morning Routin e Give 1 table t by mouth in the [facility] ed to LOUISE NDIAYE (E03. 9) 2024 - - Fleet Enema Enema 7-19 GM/118ML active 14413 5 RXNORM 1 dose Rectal as needed PRN Inser t 1 dose recta lly as neede d for Const ipati on (Step 3) as neede d if no bowel movem ent for 8 hours after bisac odyl suppo sitor y. 2024 - Constipatio n Milk of Magnesia Suspension 400 MG/5ML active 31357 7 RXNORM 30 ml Oral as needed PRN Give 30 ml by mouth as neede d for Const ipati on (Step 1) As neede d if no bowel movem ent for three days. (Do not use for Hemod ialys is patie nts). 2024 - Constipatio n Acetaminoph en Tablet 325 MG active 36779 2 RXNORM 2 table t Oral as needed PRN Give 2 table t by mouth every 6 hours as neede d for Pain Pain Total dosag e for aceta minop hen and medic ation s that conta in aceta minop hen shoul d not excee d 3 grams / 24 hours . AND Give 2 table t by mouth every 6 hours as neede d for Fever great er than 100.0 F Total dosag e for aceta minop hen and medic ation s that conta in aceta minop hen shoul d not excee d 3 grams / 24 hours . 2024 - Pain 87997 2 RXNORM 2 table t Oral as needed PRN Give 2 table t by mouth every 6 hours as neede d for Pain Pain Total dosag e for aceta minop hen and medic ation s that conta in aceta minop hen shoul d not excee d 3 grams / 24 hours . AND Give 2 table t by mouth every 6 hours as neede d for Fever great er than 100.0 F Total dosag e for aceta minop hen and medic ation s that conta in aceta minop hen shoul d not excee d 3 grams / 24 hours . 2024 - Fever greater than 100.0F Bisacodyl Suppository 10 MG active 9 RXNORM 1 suppo sitor y Rectal as needed PRN Inser t 1 suppo sitor y recta lly as neede d for If no bowel movem ent for 8 hours after Milk of Magne brandon 2024 - If no bowel movement for 8 hours after Milk of Magnesia Zofran Oral Tablet 4 MG active 50347 5 RXNORM 4 mg Oral as needed PRN Give 4 mg by mouth every 8 hours as neede d for nause a give up to two doses . Then disco ntinu e 2024 - nausea Pantoprazol e Sodium Oral Tablet Delayed Release 40 MG active 57917 0 RXNORM 40 mg Oral one time a day Routin e Give 40 mg by mouth one time a day for GERD relat ed to GASTR O-ESO PHAGE AL REFLU X DISEA SE WITHO UT ESOPH AGITI S (K21. 9) 2024 - GERD Comirnaty Intramuscul ar Suspension Prefilled Syringe 30 MCG/0.3ML active 10971 41 RXNORM 0.3 ml Intram uscula r as needed PRN Injec t 0.3 ml intra muscu larly as neede d for vacci ne give x1 2024 - vaccine MiraLax Oral Powder 17 GM/SCOOP active 19036 5 RXNORM 1 scoop Oral in the morning Routin e Give 1 scoop by mouth in the morni ng for Const ipati on 2024 - Constipatio n Senna Oral Tablet 8.6 MG active 2 table t Oral at bedtime Routin e Give 2 table t by mouth at bedti me for const ipati on 2024 - constipatio n Mental Status Section Date Assessment Total Score Description 08/18/2025 BIMS 06 severe cognitiv e impairment CAM 0 No delirium ind icated PHQ-9 00 07/18/2025 CAM 0 No delirium ind icated Insurance Providers Coverage Status Coverage Type Relationship to Subscriber Member Identifier Subscriber Identifier Group Identifier Payer Identifier and Other information 2025 Code: 2 Code System OID:2.16.840.1 .854696.3.221. 5 Code System Name: Source of Payment Typology ([facility]) Display: Medicaid Translation: Code: 48 Code System: OID:2.16.840.1 .617205.6.255. 1336 Code System Name: Insurance Type Code ([id number]) Display Name: Medicaid Code: SELF Code System Name: HL7 RoleCode Code System OID:2.16.840.1 .449388.5.111 Display Name: Self [id number] Root: [id number] Payer Name: [facility] Address: [place] [address] City: [place] State: [place] Country: [facility] Telecom: [phone] Code: 81 Code System OID:2.16.840.1 .445165.3.221. 5 Code System Name: Source of Payment Typology (PHDSC) Display: Self Pay Translation: Code: 09 Code System: OID:2.16.840.1 .173498.6.255. 1336 Code System Name: Insurance Type Code ([id number]) Display Name: Self-pay 2025 Code: 51 Code System OID:2.16.840.1 .466756.3.221. 5 Code System Name: Source of Payment Typology (PHDSC) Display: Managed Care (Private) Translation: Code: HM Code System: OID:216.840.1 .217502.6.255. 1336 Code System Name: Insurance Type Code ([id number]) Display Name: Health Maintenance Organization (HMO) Plan Code: SELF Code System Name: HL7 RoleCode Code System OID:2.16.840.1 .824271.5.111 Display Name: Self [id number] Root: [id number] Payer Name: [facility] Address: [place] [address] City: [facility]: [place] Country: [facility] Code: 2 Code System OID:2.16.840.1 .899666.3.221. 5 Code System Name: Source of Payment Typology (PHDSC) Display: Medicaid Translation: Code: 48 Code System: OID:216.840.1 .732372.6.255. 1336 Code System Name: Insurance Type Code ([id number]) Display Name: Medicaid Plan of Treatment Section Interventions Intervention Code Code System Display Name Proposed D ate Problems Problem # Description Date of onset Resolved Date Code CodeSystem Concern Status 1 UNSPECIFIED ABDOMINAL PAIN [address] active 2 OTHER LACK OF COORDINATION [address] active 3 UNSPECIFIED FALL, SUBSEQUENT ENCOUNTER [address] active 4 DEMENTIA IN OTHER DISEASES CLASSIFIED ELSEWHERE, UNSPECIFIED SEVERITY, WITHOUT BEHAVIORAL DISTURBANCE, PSYCHOTIC DISTURBANCE, MOOD DISTURBANCE, AND ANXIETY [address] active 5 NAUSEA WITH VOMITING, UNSPECIFIED [address] active 6 ABNORMAL WEIGHT LOSS [address] active 7 ADULT FAILURE TO THRIVE [address] active 8 CONSTIPATION, UNSPECIFIED [address] active 9 DYSPHAGIA, OROPHARYNGEAL PHASE [address] active 10 DYSPHAGIA, UNSPECIFIED 5 06/01/[address] completed 11 GASTRO-ESOPHAGEAL REFLUX DISEASE WITHOUT ESOPHAGITIS [address] active 12 GASTROINTESTINAL HEMORRHAGE, UNSPECIFIED [address] active 13 HEMATURIA, UNSPECIFIED 5 11/21/[address] completed 14 HEMORRHAGE OF ANUS AND RECTUM [address] active 15 HISTORY OF FALLING [address] active 16 HYPOTHYROIDISM, UNSPECIFIED [address] active 17 MUSCLE WEAKNESS (GENERALIZED) 5 06/01/[address] completed 18 OTHER ABNORMALITIES OF GAIT AND MOBILITY 5 06/01/[address] completed 19 PERSONAL HISTORY OF DISEASES OF THE BLOOD AND BLOOD-FORMING ORGANS AND CERTAIN DISORDERS INVOLVING THE IMMUNE MECHANISM [address] active 20 PERSONAL HISTORY OF MALIGNANT NEOPLASM OF BREAST [address] active 21 PERSONAL HISTORY OF OTHER DISEASES OF THE DIGESTIVE SYSTEM [address] active 22 PRIMARY GENERALIZED (OSTEO)ARTHRITIS [address] active 23 SYNCOPE AND COLLAPSE [address] active 24 UNSPECIFIED DEMENTIA, UNSPECIFIED SEVERITY, WITHOUT BEHAVIORAL DISTURBANCE, PSYCHOTIC DISTURBANCE, MOOD DISTURBANCE, AND ANXIETY [address] active 25 UNSPECIFIED FALL, SUBSEQUENT ENCOUNTER 5 06/01/[address] completed 26 UNSPECIFIED LACK OF COORDINATION 5 06/01/[address] completed 27 UNSTEADINESS ON FEET 5 06/01/[address] completed Reason for Referral No Reasons for Referral Entered Social History Social History Observation Description Start Date End Date Code Code System Current Smoking Status Tobacco smoking consumption unknown 981147114 SNOMED CT Sex Assigned At Female 1940 45086-6 [facility] Gender Identity Sexual Orientation Vital Signs Code Code System Vitals Name Values and Units Timing Information 58682-7 [facility] Pain Level Value=0.0 11/22/2025 9279-1 [facility] Respiratory Rate Value=18.0 Units=/m in 11/17/2025 8462-4 [facility] Blood Pressure-Diastolic Value=64 Un its=mmHg 11/17/2025 8480-6 [facility] Blood Pressure-Systolic Llfzx=352 Un its=mmHg 11/17/2025 8310-5 [facility] Body Temperature Value=97.8 Units= F 11/17/2025 8867-4 [facility] Heart rate Value=78.0 Units=/min 06888-4 [facility] O2 % BldC Oximetry Value=96.0 Units= % 11/17/2025 03018-2 [facility] Weight Fbmcb=738.8 Units=Lbs 01/2025 2339-0 [facility] Blood Sugar Value=89.0 Units=mg/dL 07/28/2025 8302-2 [facility] Height Value=61.0 Units=Inches 02/11/2025
--- OUTSIDE RECORDS SUMMARY | 2025-11-22 18:14 | XMS_ITS | Encounter Summary ---
Author Organization [employer] Address [address] [facility] [address]t [place] [address] Care Team Providers Care Weld Technician Name Role Phone Dee Dee Rueda MD Primary Care Provide r Reason for Visit * Reason Comments Med Refill Encounter Details Date Type Department Care Team ([facility] st Contact Info) Description 08/12/2024 Refill [facility] [address] [place], [place] [phone] Dee Dee Rueda MD [address] [place] [address] Moderate dementia with other behavioral disturbance, unspecified [...] documented as of this encounter Care Teams Weld Technician Relationship Specialty Start Date End Date Dee Dee Rueda MD [address] [place] [address] PCP - General Family Medicine 09/07/22 documented as of this encounter
--- OUTSIDE RECORDS SUMMARY | 2025-11-22 18:14 | XMS_ITS | Clinical Summary ---
Author Organization [address] Address [address] [place] [phone] Phone Care Team Providers Care Aviation Electrical Technician Name Role Phone Elder, Tabatha Nagel MD Primary Care Provider + Social History Tobacco Use Types Packs/Day Years [...] 12/27/2023 Social Influencers of Health Screening 12/27/2023 Depression Screening 12/02/2024 COVID-19 Vaccine (2024-2 6 season) 2025 03/02/2021, 12/29/2020, 12/08/2020 Influenza Vaccine (#1) 2025 09/14/2022 DTaP,Tdap,and Td Vaccines (2 - [...] on patient's age to complete this topic Insurance MEDICAID - [place] [facility] Member Subscriber Plan / Payer (Ef fective 2015-Present) Name:Kiser-rajanXiangKaley Relation to Subscriber:Self Name:Xiao Schreiberillo Kaley Garcia Payer ID:[id number] Group ID:[id number] Type:Not on file Address: [address] [place] [address] Care Teams Aviation Electrical Technician Relationship Specialty Start Date End Date Tabatha Keen MD [address] [address] PCP - General Family Medicine 02/16/25
--- OUTSIDE RECORDS SUMMARY | 2025-11-22 18:14 | XMS_ITS | Encounter Summary ---
Author Organization [employer] Address [address] [facility] [address] [place] [address] Care Team Providers Care Service Station Console Operator Name Role Phone Dee Dee Rueda MD Primary Care Provide r Reason for Visit * Reason Comments Med Refill Encounter Details Date Type Department Care Team ([facility] st Contact Info) Description 10/18/2023 Refill [facility] [address] [place] [address] Comfort Marrero FNP [address] [place], [place] [phone] Acquired hypothyroidism Social History Tobacco Use Types [...] documented as of this encounter Care Teams Service Station Console Operator Relationship Specialty Start Date End Date Dee Dee Rueda MD [address] [place] [address] PCP - General Family Medicine 09/07/22 documented as of this encounter
--- OUTSIDE RECORDS SUMMARY | 2025-11-22 18:14 | XMS_ITS | Encounter Summary ---
Author Organization [facility] Address [address] [place] [address] Care Team Providers Care Lei Seller Name Role Phone Tabatha Keen MD Primary Care Provider + Encounter Details Date Type Department Care Team (Late st Contact Info) Description 05/06/2025 Lab Requisition [facility] - Main Lab [address] [place] [address] Tabatha Keen MD [address] [address] Gastro-esophageal reflux disease without esophagitis Social History Tobacco Use Types Packs/Day Years [...] Associated Diagnosis Comments COMPLETE BLOOD COUNT Routine 05/06/2025 5:38 AM EDT Gastro-esophageal reflux disease without esophagitis COMPREHENSIVE METABOLIC PANEL Routine 05/06/2025 5:38 AM EDT Gastro-esophageal reflux disease without esophagitis documented in this encounter Results * (ABNORMAL) Comprehensive metabolic panel (05/06/2025 5:38 AM EDT) Sodium 141 133 - 145 mmol/L LAB CHEMISTRY METHOD 05/06/2025 9:08 AM EDT [facility] Potassium 4.0 3.5 - 5.5 mmol/L LAB CHEMISTRY METHOD 05/06/2025 9:08 AM EDT [facility] Chloride 109 96 - 110 mmol/L LAB CHEMISTRY METHOD 05/06/2025 9:08 AM [facility] CO2 27 21 - 32 mmol/L LAB CHEMISTRY METHOD 05/06/2025 9:08 AM [facility] Anion Gap 5 3 - 11 LAB CHEMISTRY METHOD 05/06/2025 9:08 AM [facility] Glucose 80 70 - 100 mg/dL LAB CHEMISTRY METHOD 05/06/2025 9:08 AM [facility] BUN 18 5 - 25 mg/dL LAB CHEMISTRY METHOD 05/06/2025 9:08 AM [facility] Creatinine 0.99 0.50 - 1.10 mg/dL LAB CHEMISTRY METHOD 05/06/2025 9:08 AM [facility] eGFR 56(L) >=60 mL/min/1. 73m2 LAB CHEMISTRY METHOD 05/06/2025 9:08 AM [facility] Comment:Calculation based on the Chronic Kidney Disease Epidemiology Collaboration (CKD-EPI) equation refit without adjustment for race. BUN/Creatinine Ratio 18.2 LAB CHEMISTRY METHOD 05/06/2025 9:08 AM [facility] Calcium 9.5 8.5 - 10.5 mg/dL LAB CHEMISTRY METHOD 05/06/2025 9:08 AM [facility] AST (SGOT) 14 10 - 42 unit/L LAB CHEMISTRY METHOD 05/06/2025 9:08 AM [facility] ALT (SGPT) 20 10 - 60 unit/L LAB CHEMISTRY METHOD 05/06/2025 9:08 AM [facility] Alkaline Phosphatase 80 42 - 121 unit/L LAB CHEMISTRY METHOD 05/06/2025 9:08 AM [facility] Total Protein 6.3 6.0 - 8.0 g/dL LAB CHEMISTRY METHOD 05/06/2025 9:08 AM [facility] Albumin 3.2 3.2 - 5.0 g/dL LAB CHEMISTRY METHOD 05/06/2025 9:08 AM T [facility] Total Bilirubin 0.3 0.0 - 1.4 mg/dL LAB CHEMISTRY METHOD 05/06/2025 9:08 AM [facility] Blood Venous blood specimen / Unknown Venipuncture / Unknown 05/06/2025 5:38 AM EDT 05/06/2025 7:14 AM EDT us Tabatha Keen MD LAB BLOOD ORDERABLES Fin al Result [facility] [address] [place] [address], [place] [phone] * Complete blood count (05/06/2025 5:38 AM EDT) WBC 5.2 4.8 - 10.8 K/mcL LAB HEMETOLOGY METHOD 05/06/2025 8:05 AM [facility] RBC 4.10 3.80 - 4.80 M/mcL LAB HEMETOLOGY METHOD 05/06/2025 8:05 AM [facility] Hemoglobin 11.6 11.5 - 16.0 g/dL LAB HEMETOLOGY METHOD 05/06/2025 8:05 AM [facility] Hematocrit 35.4 35.0 - 47.0 % LAB HEMETOLOGY METHOD 05/06/2025 8:05 AM [facility] MCV 87.0 79.0 - 98.0 FL LAB HEMETOLOGY METHOD 05/06/2025 8:05 AM [facility] MCH 28.5 27.0 - 32.0 pcg LAB HEMETOLOGY METHOD 05/06/2025 8:05 AM [facility] MCHC 32.8 32.0 - 37.0 g/dL LAB HEMETOLOGY METHOD 05/06/2025 8:05 AM EDT [facility] RDW 13.9 11.0 - 15.0 % LAB HEMETOLOGY METHOD 05/06/2025 8:05 AM EDT [facility] Platelets 184 130 - 400 K/mcL LAB HEMETOLOGY METHOD 05/06/2025 8:05 AM EDT [facility] MPV 10.2 7.0 - 11.0 FL LAB HEMETOLOGY METHOD 05/06/2025 8:05 AM EDT [facility] NRBC 0.0 <1.0 % LAB HEMETOLOGY METHOD 05/06/2025 8:05 AM EDT [facility] NRBC Absolute 0.00 <0.10 K/mcL LAB HEMETOLOGY METHOD 05/06/2025 8:05 AM EDT [facility] Blood Venous blood specimen / Unknown Venipuncture / Unknown 05/06/2025 5:38 AM EDT 05/06/2025 7:14 AM EDT us Tabatha Keen MD LAB BLOOD ORDERABLES Fin al Result [facility] [address] [place] [address], [place] [phone] documented in this encounter Visit Diagnoses Diagnosis Gastro-esophageal reflux disease without esophagitis documented in this encounter Care Teams Lei Seller Relationship Specialty Start Date End Date Tabatha Keen MD [address] [place] [phone] PCP - General Family Medicine 02/16/25 documented as of this encounter
--- OUTSIDE RECORDS SUMMARY | 2025-11-22 18:14 | XMS_ITS | Encounter Summary ---
Author Organization [employer] Address [address] [place] [address] Care Team Providers Care Vessel Scrapper Helper Name Role Phone Tabatha Keen MD Primary Care Provider + Encounter Details Date Type Department Care Team (Late st Contact Info) Description 02/16/2025 Lab Requisition [facility] - Main Lab [address] [facility] [place] [address] Tabatha Keen MD [address] [place] [address] Unspecified dementia, unspecified severity, without behavioral disturbance, [...] LAB CHEMISTRY METHOD 02/16/2025 12:24 PM EDT [facility] Blood Venous blood specimen / Unknown Venipuncture / Unknown 02/16/2025 7:43 AM EDT 02/16/2025 10:33 AM EDT us Tabatha Keen MD LAB BLOOD ORDERABLES Fin al Result [facility] [address] [place] [address], * (ABNORMAL) Folate (02/16/2025 7:43 AM EDT) Folate 17.3(H) 2.8 - 17.0 ng/ml LAB CHEMISTRY METHOD 02/16/2025 12:42 PM EDT [facility] Blood Venous blood specimen / Unknown Venipuncture / Unknown 02/16/2025 7:43 AM EDT 02/16/2025 10:33 AM EDT Tabatha Keen MD LAB BLOOD ORDERABLES Fin al Result Performing Organization Address City/[facility]/ZIP Co de Phone Number [facility] [address] [place] [address], [place] [phone] * (ABNORMAL) Vitamin B12 (02/16/2025 7:43 AM EDT) Pathologist [facility] Vitamin B-12 1,926(H) 250 - 900 pcg/mL LAB CHEMISTRY METHOD 02/16/2025 12:42 PM EDT [facility] Blood Venous blood specimen / Unknown Venipuncture / Unknown 02/16/2025 7:43 AM EDT 02/16/2025 10:33 AM EDT Tabatha Keen MD LAB BLOOD ORDERABLES Fin al Result Performing Organization Address [facility]/ZIP Co de Phone Number [facility] [address] [place] [address], [place] [phone] * Vitamin D 25 hydroxy (02/16/2025 7:43 AM EDT) Vit D, 25-Hydroxy 34.8 30.0 - 80.0 ng/mL LAB CHEMISTRY METHOD 02/16/2025 12:23 PM EDT [facility] Blood Venous blood specimen / Unknown Venipuncture / Unknown 02/16/2025 7:43 AM EDT 02/16/2025 10:33 AM EDT Tabatha Keen MD LAB BLOOD ORDERABLES Fin al Result Performing Organization Address City/[facility]/ZIP Co de Phone Number [facility] [address] [place] [address], [place] [phone] * (ABNORMAL) Comprehensive metabolic panel (02/16/2025 7:43 AM EDT) Sodium 140 133 - 145 mmol/L LAB CHEMISTRY METHOD 02/16/2025 12:42 PM [facility] Potassium 4.8 3.5 - 5.5 mmol/L LAB CHEMISTRY METHOD 02/16/2025 12:42 PM [facility] Chloride 107 96 - 110 mmol/L LAB CHEMISTRY METHOD 02/16/2025 12:42 PM [facility] CO2 27 21 - 32 mmol/L LAB CHEMISTRY METHOD 02/16/2025 12:42 PM [facility] Anion Gap 6 3 - 11 LAB CHEMISTRY METHOD 02/16/2025 12:42 PM [facility] Glucose 78 70 - 100 mg/dL LAB CHEMISTRY METHOD 02/16/2025 12:42 PM [facility] BUN 25 5 - 25 mg/dL LAB CHEMISTRY METHOD 02/16/2025 12:42 PM [facility] Creatinine 1.05 0.50 - 1.10 mg/dL LAB CHEMISTRY METHOD 02/16/2025 12:42 PM [facility] eGFR 53(L) >=60 mL/min/1. 73m2 LAB CHEMISTRY METHOD 02/16/2025 12:42 PM [facility] Comment:Calculation based on the Chronic Kidney Disease Epidemiology Collaboration (CKD-EPI) equation refit without adjustment for race. BUN/Creatinine Ratio 23.8 LAB CHEMISTRY METHOD 02/16/2025 12:42 PM [facility] Calcium 10.5 8.5 - 10.5 mg/dL LAB CHEMISTRY METHOD 02/16/2025 12:42 PM [facility] AST (SGOT) 27 10 - 42 unit/L LAB CHEMISTRY METHOD 02/16/2025 12:42 PM [facility] ALT (SGPT) 40 10 - 60 unit/L LAB CHEMISTRY METHOD 02/16/2025 12:42 PM EDT [facility] Alkaline Phosphatase 71 42 - 121 unit/L LAB CHEMISTRY METHOD 02/16/2025 12:42 PM EDT [facility] Total Protein 7.1 6.0 - 8.0 g/dL LAB CHEMISTRY METHOD 02/16/2025 12:42 PM EDT [facility] Albumin 3.6 3.2 - 5.0 g/dL LAB CHEMISTRY METHOD 02/16/2025 12:42 PM T [facility] Total Bilirubin 0.4 0.0 - 1.4 mg/dL LAB CHEMISTRY METHOD 02/16/2025 12:42 PM T [facility] Blood Venous blood specimen / Unknown Venipuncture / Unknown 02/16/2025 7:43 AM EDT 02/16/2025 10:33 AM EDT us Tabatha Keen MD LAB BLOOD ORDERABLES Fin al Result [facility] [address] [place] [address], * (ABNORMAL) Complete blood count (02/16/2025 7:43 AM EDT) WBC 6.3 4.8 - 10.8 K/mcL LAB HEMETOLOGY METHOD 02/16/2025 11:20 AM EDT [facility] RBC 4.60 3.80 - 4.80 M/mcL LAB HEMETOLOGY METHOD 02/16/2025 11:20 AM EDT [facility] Hemoglobin 13.2 11.5 - 16.0 g/dL LAB HEMETOLOGY METHOD 02/16/2025 11:20 AM T [facility] Hematocrit 40.8 35.0 - 47.0 % LAB HEMETOLOGY METHOD 02/16/2025 11:20 AM EDT [facility] MCV 89.5 79.0 - 98.0 FL LAB HEMETOLOGY METHOD 02/16/2025 11:20 AM EDT [facility] MCH 28.9 27.0 - 32.0 pcg LAB HEMETOLOGY METHOD 02/16/2025 11:20 AM EDT [facility] MCHC 32.4 32.0 - 37.0 g/dL LAB HEMETOLOGY METHOD 02/16/2025 11:20 AM EDT [facility] RDW 15.4(H) 11.0 - 15.0 % LAB HEMETOLOGY METHOD 02/16/2025 11:20 AM EDT [facility] Platelets 226 130 - 400 K/mcL LAB HEMETOLOGY METHOD 02/16/2025 11:20 AM EDT [facility] MPV 10.6 7.0 - 11.0 FL LAB HEMETOLOGY METHOD 02/16/2025 11:20 AM EDT [facility] NRBC 0.0 <1.0 % LAB HEMETOLOGY METHOD 02/16/2025 11:20 AM EDT [facility] NRBC Absolute 0.00 <0.10 K/mcL LAB HEMETOLOGY METHOD 02/16/2025 11:20 AM T [facility] Blood Venous blood specimen / Unknown Venipuncture / Unknown 02/16/2025 7:43 AM EDT 02/16/2025 10:33 AM EDT us Tabatha Keen MD LAB BLOOD ORDERABLES Fin al Result [facility] [address] [place] [address], documented in this encounter Visit Diagnoses Diagnosis Unspecified dementia, unspecified severity, without behavioral disturbance, psychotic disturbance, mood disturbance, and anxiety (CMS/HCC V24, CMS/HCC V28) Disease of blood and blood-forming organs, unspecified documented in this encounter Care Teams Vessel Scrapper Helper Relationship Specialty Start Date End Date Tabatha Keen MD [address] [address] PCP - General Family Medicine 02/16/25 documented as of this encounter
--- OUTSIDE RECORDS SUMMARY | 2025-11-22 18:14 | XMS_ITS | Encounter Summary ---
Author Organization [employer] Address [address] [facility] 7t [place] [address] Care Team Providers Care Manager Administrative Services Name Role Phone Dee Dee Rueda MD Primary Care Provide r Reason for Visit * Reason Comments Med Refill Encounter Details Date Type Department Care Team ([facility] st Contact Info) Description 10/09/2024 Refill [facility] [address] [place] [address] Comfort Marrero FNP [address] [place], [place] [phone] Acquired hypothyroidism Social History Tobacco Use Types [...] documented as of this encounter Care Teams Manager Administrative Services Relationship Specialty Start Date End Date Dee Dee Rueda MD [address] [place] [phone] PCP - General Family Medicine 09/07/22 documented as of this encounter
--- OUTSIDE RECORDS SUMMARY | 2025-11-22 18:14 | XMS_ITS | Encounter Summary ---
Author Organization [employer] Address [address] [facility] 7t [place] [address] Care Team Providers Care Medical Device Assembler Name Role Phone Dee Dee Rueda MD Primary Care Provide r Reason for Visit * Reason Comments Med Refill Encounter Details Date Type Department Care Team ([facility] st Contact Info) Description 02/03/2024 Refill [facility] [address] [place] [address] Comfort Marrero FNP [address] [place], [place] [phone] Acquired hypothyroidism Social History Tobacco Use Types [...] documented as of this encounter Care Teams Medical Device Assembler Relationship Specialty Start Date End Date Dee Dee Rueda MD [address] [place] [phone] PCP - General Family Medicine 09/07/22 documented as of this encounter
--- OUTSIDE RECORDS SUMMARY | 2025-11-22 18:15 | XMS_ITS | Clinical Summary ---
Author Organization [employer] Address [address] [facility] 7t [place] [address] Care Team Providers Care Clarifying Plant Operator Name Role Phone Dee Dee Rueda [...] behavioral disturbance, unspecified dementia type (CMS/HCC) (HCC) Take 1 tablet (25 mg) by mouth [...] A MEAL 90 capsule 1 4 Active melatonin tabletIndications: Primary insomnia TAKE 1 TABLET BY MOUTH EVERYDAY AT BEDTIME 90 tablet 5 Active levothyroxine (Synthroid, Levoxyl) 75 MCG tabletIndications: Acquired hypothyroidism TAKE 1 TABLET BY MOUTH EVERY DAY BEFORE BREAKFAST 90 tablet 1 5 Active Active Problems Problem Noted Date [...] do melatonin 1mg at bed time Dementia ([facility]/HCC) 11/18/2023 Assessment & Plan (05/06/2024 2:42 PM [...] unspec ified site of left female breast (CMS/HCC) 05/14/2018 Other nonspecific abnormal finding of lung [...] Onychomycosis 09/08/2015 11/07/2022 Allergic rhinitis 08/11/2015 11/07/2022 Immunizations Immunization Administration Dates Next Due Influenza High-dose Quadrivalent [...] 56 09/22/2024 2:27 PM EDT Temperature 36.2 C (97.2 F) 09/22/2024 2:27 PM EDT Respiratory Rate 16 09/22/2024 2:27 PM EDT [...] older (1 - 1-dose 75+ series) 2016 SDOH Screening 04/02/2025 04/02/2024 Depression Screening 05/05/2025 05/05/2024, 05/05/2024 COVID-19 Vaccine ( - 2024-2 6 season) 2025 03/02/2021, 12/29/2020, 12/08/2020 Influenza Vaccine (#1) 2025 09/14/2022 Tobacco Screening 09/22/2025 09/22/2024 DTaP/Tdap/Td Vaccines (2 [...] patient's age to complete this topic Insurance [facility] [employer] (O D-SNP) [place] [id number] Care Teams Clarifying Plant Operator Relationship Specialty Start Date End Date Dee Dee Rueda MD [address] [facility] [place] [address] PCP - General Family Medicine 09/07/22
--- OUTSIDE RECORDS SUMMARY | 2025-11-22 18:15 | XMS_ITS | Encounter Summary ---
Author Organization [employer] Address [address] [facility] 7t [place] [address] Care Team Providers Care Production Line Worker Name Role Phone Dee Dee Rueda MD Primary Care Provide r Reason for Visit * Reason Comments Med Refill Encounter Details Date Type Department Care Team ([facility] st Contact Info) Description 09/08/2024 Refill [facility] [address] [place], [place] [phone] Dee Dee Rueda MD [address] [place], [place] [phone] Moderate dementia with other behavioral disturbance, unspecified [...] documented as of this encounter Care Teams Production Line Worker Relationship Specialty Start Date End Date Dee Dee Rueda MD [address] [place] [phone] PCP - General Family Medicine 09/07/22 documented as of this encounter
--- OUTSIDE RECORDS SUMMARY | 2025-11-22 18:15 | XMS_ITS | Encounter Summary ---
Author Organization [employer] Address [address] [facility] 7t [place] [address] Care Team Providers Care Traffic Signal Technician Name Role Phone Dee Dee Rueda MD Primary Care Provide r Reason for Visit * Reason Comments Med Refill Encounter Details Date Type Department Care Team ([facility] st Contact Info) Description 10/08/2024 Refill [facility] [address] [place] [address] Comfort Marrero FNP [address] [place], [place] [phone] Acquired hypothyroidism Social History Tobacco Use Types [...] documented as of this encounter Care Teams Traffic Signal Technician Relationship Specialty Start Date End Date Dee Dee Rueda MD [address] [place] [phone] PCP - General Family Medicine 09/07/22 documented as of this encounter
[2025-11-22 18:24] VITALS: BP 166/74; PULSE 79; RESP 18; TEMP 37.3; O2SAT 98
--- NOTE | 2025-11-22 18:46 | PC.NURSE ---
[facility] tel #[phone]
[2025-11-22 19:41] VITALS: BP 135/93; PULSE 67; RESP 12; O2SAT 96
[2025-11-23 07:41] LABS: Chlamydia pneumoniae PCR Not Detected (Not Detect.); Coronavirus 229E PCR Not Detected (Not Detect.); Coronavirus HKU1 PCR Not Detected (Not Detect.); Coronavirus NL63 PCR Not Detected (Not Detect.); Coronavirus OC43 PCR Not Detected (Not Detect.); RSV PCR Not Detected (Not Detect.); Rhino/Enterovirus PCR Not Detected (Not Detect.)
[2025-11-23 07:53] LABS: Influenza A H1 PCR Not Detected (Not Detect.); Influenza A H1-2009 PCR Not Detected (Not Detect.); Influenza A H3 PCR Not Detected (Not Detect.); SARS-CoV-2 PCR Not Detected (Not Detect.)
== END 2025-11-22 20:17 | disposition home or self-care (01) ==
PROVIDERS: Emergency Medicine; Emergency Provider Emergency Medicine; PCP Internal Medicine
DX: R25.1 Tremor, unspecified (principal); R79.89 Other specified abnormal findings of blood chemistry; R41.82 Altered mental status, unspecified; R94.31 Abnormal electrocardiogram [ECG] [EKG]; R53.1 Weakness; Z03.818 Encounter for observation for suspected exposure to other biological agents ruled out; Z79.899 Other long term (current) drug therapy
CPT/HCPCS: 36415; 70450; 71045; 80048; 80076; 81003; 82550; 83605; 83690; 83735; 84145; 84439; 84443; 85025; 86140; 87040; 87633; 87637; 93005; 96361; 96374; 96375; 99284; J0131; J0696; J7120

== ENCOUNTER → 2025-11-22 14:00 | Outpatient (BNV) | payer OTHER, SELFPAY | PROVIDERS: Emergency Provider Emergency Medicine; PCP Internal Medicine; Visit Provider Radiology Diagnostic Radiology | DX: R41.82 Altered mental status, unspecified (principal); R53.1 Weakness | CPT/HCPCS: 70450; 71045 ==

== ENCOUNTER → 2025-11-22 14:00 | Outpatient (BNV) | payer OTHER, SELFPAY | PROVIDERS: Emergency Provider Emergency Medicine; PCP Internal Medicine; Visit Provider Internal Medicine Cardiovascular Disease | DX: R53.1 Weakness (principal) | CPT/HCPCS: 93010 ==